=== PATIENT | male | born 1965 | race Caucasian/White ===

== ENCOUNTER 2017-02-05 10:59 | Emergency (ER) | payer SELFPAY ==
[~2017-02-05] VITALS: Ht 172.7 cm; Wt 97.1 kg
[~2017-02-05 10:59] MED LIST: ATOR10TA PO; CYCL10TA9 PO; DULO60CA6 PO; LISI-552 PO; METH4TAB PO; NF-ACI30T PO; SERT100T PO; SRTR100T PO; TOPI100T PO; TRAM-42 PO
--- OUTSIDE RECORDS SUMMARY | 2017-02-05 11:06 | XMS REPORT | Continuity of Care Document ---
Author Author [facility] Organization [facility] Address Unknown Phone Unavailable Care Team Providers Care Spooling Supervisor Name Role Phone , [facility] Insurance Providers Payer Name Policy Number Subscriber Name Relationship Self Pay Eloy Nath 18 Self / Same As Patient Advance Directives Directive Response Recorded Date/Time Advance Directives No 01/03/15 6:20am Health Care Power of Parts Fabricator No 01/03/15 6:20am Resuscitation Status Full Code 01/03/15 6:20am Problems Medical Problems Problem Onset Date Status 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 sac Unknown Active 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 sac Unknown Active Medications Medication Dose Route Sig Days/Qty Instructions Order Date Discontinued Date Status Sertraline HCl 100 Mg PO DAILY@0900 02/10/12 Active Duloxetine HCl 1 Each PO DAILY 02/10/12 Active Social History Social History Problem Response Recorded Date/Time Alcohol Use Occasionally Uses 01/03/2015 6:20am Recreational Drug Use No 01/03/2015 6:20am Recent Foreign Travel No 01/03/2015 6:20am Recent Infectious Disease Exposure No 01/03/2015 6:20am Smoking Status Never a Smoker 01/03/2015 6:20am Query Response Start Date Stop Date Smoking Status Never a Smoker Hospital Discharge Instructions No hospital discharge instructions. Plan of Care No plan of care. Functional Status No functional status results. Allergies, Adverse Reactions, Alerts Allergen Type Severity Reaction Status Last Updated No Known Drug Allergies Active 02/10/12 Immunizations No immunization records. Vital Signs Acute Vital Signs Vital Response Date/Time Temperature (Fahrenheit) 98.4 degrees F (97.6 - 99.5) Temperature (Calculated Celsius) 36.75825 degrees C (36.4 - 37.5) Temperature Source Temporal Pulse Rate (adult) 91 bpm (60 - 90) Respiratory Rate 18 bpm (12 - 24) O2 Sat by Pulse Oximetry 96 % (88 - 100) Blood Pressure 108/82 mm Hg Pain Pain Intensity 7 Height (Feet) 5 feet Height (Inches) 8 inches Height (Calculated Centimeters) 172.244457 cm Weight (Pounds) 220 pounds Weight (Calculated Kilograms) 99.100955 kilograms Calculated BMI 33.45 Results No known relevant diagnostic tests, laboratory data and/or discharge summary. Procedures No known history of procedures. Encounters Encounter Location Date/Time Departed Emergency Room [facility] 01/03/15 6:17am Recent Diagnosis
--- NOTE | 2017-02-05 12:22 | ED General ---
General Chief Complaint: Rect Problems Stated Complaint: DIARRHEA/BLOOD IN STOOL Nursing Triage Note: Ambulatory to ED 10 with reports of rectal bleeding for the past week. Patient has history of hemorrhoids. Reports bleeding is bright red in nature. Nursing Sepsis Screen: No Definite Risk Source of Information: Patient Exam Limitations: No Limitations History of Present Illness Time Seen by Provider: 12:22 Initial Comments 51-year-old male patient presents to the emergency department complains of bright red blood per rectum several times in the last week. Patient states he does have a history of hemorrhoids with bleeding. States when he has had trouble with his hemorrhoids, he has always had pain with bowel movements. Denies any rectal pain on this occasion. States this concerned him. States he has had approximately 4-5 intermittent watery diarrhea stools over the last week. Lower abdominal cramping last night, but resolved today. Denies contacting his PCP for symptoms. Location Injury Occurred: denies known injury. Timing/Duration: 1 Week, Intermittent Modifying Factors: worse with Other (worse with defecation) Allergies and Home Medications Allergies Coded Allergies: No Known Drug Allergies (Unverified , 02/10/12) Home Medications Atorvastatin Calcium 10 Mg Tablet 10 MG PO DAILY (Reported) Cyclobenzaprine HCl 10 Mg Tablet #15 10 MG PO Q8H Prescribed by: PERFECTO MYRICK on 06/26/161849 Hydrocortisone/Pramoxine 30 Gm Cream.appl #1 1 GM RC QID PRN PRN HEMORRHOIDS Prescribed by: DEREK HARRIS on 02/05/17 1302 Lisinopril 20 Mg Tablet 20 MG PO DAILY (Reported) Methylprednisolone 4 Mg Tab.ds.pk #1 4 MG PO UD Prescribed by: PERFECTO MYRICK on 06/26/161849 Rabeprazole Sodium 20 Mg Tablet.dr 20 MG PO DAILY (Reported) Sertraline HCl 100 Mg Tablet 100 MG PO DAILY (Reported) Sertraline Hcl 100 Mg Tab 100 MG PO DAILY@0900 (Reported) Topiramate 100 Mg Tablet 100 MG PO DAILY (Reported) Tramadol HCl 50 Mg Tablet #20 50 MG PO Q4H Prescribed by: PERFECTO MYRICK on 06/26/161849 Constitutional: No chills, No diaphoresis, No dizziness, No fever, No malaise, No weakness EENTM: no symptoms reported Respiratory: no symptoms reported Cardiovascular: no symptoms reported Gastrointestinal: see HPINo abdominal pain, No constipation, diarrheaNo hematemesis, No loss of appetite, No melena, No nausea, No vomiting, other ( positive hematochezia.) Genitourinary: No decreased output, No dysuria, No frequency, No hematuria, No pain Musculoskeletal: no symptoms reported Skin: no symptoms reported Psychiatric/Neurological: No Symptoms Reported Hematologic/Lymphatic: No Symptoms Reported All Other Systems Reviewed Negative Unless Noted: Yes (Negative excepted noted.) Past Hulzbjd-Fbbigm-Cqgyyu Hx Patient Social History Alcohol Use: Occasionally Uses Recreational Drug Use: No Smoking Status: Never a Smoker 2nd Hand Smoke Exposure: No Recent Foreign Travel: No Contact w/Someone Who Travel: No Recent Infectious Disease Expo: No Recent Hopitalizations: No Immunizations Up To Date Tetanus Booster (TDap): Unknown Seasonal Allergies Seasonal Allergies: No Surgeries HX Surgeries: Yes (HERNIA REPAIR) Surgeries: Abdominal, Tonsillectomy Respiratory Hx Respiratory Disorders: No Cardiovascular Hx Cardiac Disorders: Yes Cardiac Disorders: High Cholesterol, Hypertension Neurological Hx Neurological Disorders: No Reproductive System Hx Reproductive Disorders: No Genitourinary Hx Genitourinary Disorders: Yes Genitourinary Disorders: Kidney Stones Gastrointestinal Hx Gastrointestinal Disorders: Yes Gastrointestinal Disorders: Gastrointestinal Bleed, Hemorrhoids Musculoskeletal Hx Musculoskeletal Disorders: Yes Musculoskeletal Disorders: Fractures Endocrine Hx Endocrine Disorders: Yes Endocrine Disorders: Hypothyroidsim HEENT HX ENT Disorders: No Cancer Hx Cancer: No Psychosocial Hx Psychiatric Problems: Yes Behavioral Health Disorders: Anxiety, Depression Integumentary HX Skin/Integumentary Disorder: No Blood Transfusions Hx Blood Disorders: No Reviewed Nursing Assessment Reviewed/Agree w Nursing PMH: Yes Family Medical History Significant Family History: No Pertinent Family Hx Physical Exam Vital Signs Vital Sign - Last 12Hours 02/05/17 11:19 Temp 98.1 Pulse 101 Resp 18 B/P 129/95 Pulse Ox 97 O2 Delivery Room Air Capillary Refill : Less Than 3 Seconds General Appearance: No Apparent Distress WD/WN Respiratory: Lungs Clear Normal Breath Sounds No Respiratory Distress Cardiovascular: Regular Rate, Rhythm No Murmur Gastrointestinal: Normal Bowel Sounds No Organomegaly Non Tender SoftNo Distended Rectal: Normal Rectal Tone Heme Positive Stool Hemorrhoids (small internal hemorrhoid at the 12 o'clock posistion.)No Tenderness Back: Normal Inspection No CVA Tenderness Extremity: Normal Capillary Refill No Pedal Edema Neurologic/Psychiatric: Alert Oriented x3 Depressed Affect Skin: Normal Color Warm/DryNo Cool, No Cyanosis, No Diaphoresis, No Pallor, No Petechia, No Rash Progress/Results/Core Measures Results/Orders My Orders Orders-DEREK HARRIS Fecal Occult Bedside (02/05/17 12:32) Vital Signs/I&O Blood Pressure Mean: 106 Departure Communication Progress Notes patient seen and evaluated. plan for dsch to home. patient instructed to f/u with his PCP for possible need of c/scope. Impression Impression: Primary Impression: Hemorrhoids Qualified Code: K64.0 - First degree hemorrhoids Additional Impression: Rectal bleeding Disposition: HOME, SELF-CARE Condition: Improved Departure-Patient Inst. Referrals: [facility] (PCP/Family) Primary Care Physician GIANNI SHARIF BRETT D DO JENKINS, XAVIER M MD Patient Instructions: Hemorrhoids (DC) Add. Discharge Instructions: All discharge instructions reviewed with patient and/or family. Voiced understanding. Medications as instructed. Osit-rsy-qwpnogn fiber supplements as instructed. Follow-up with the family practitioner for recheck and possible need for colonoscopy. Call for appointment time. Return to the emergency department for worsened bleeding, pain, abdominal swelling, abdominal pain, fever, or any other concerns. Scripts Hydrocortisone/Pramoxine (Analpram Hc 2.5% Cream)30 Gm Cream.appl1 Gm RC QID PRN HEMORRHOIDS #1 EA Ref 0 Prov:DEREK HARRIS 02/05/17 DEREK HARRIS Feb 05, 2017 12:22 Add. Discharge Instructions: All discharge instructions reviewed with patient and/or family. Voiced understanding. Medications as instructed. Puvs-fff-wpguvme fiber supplements as instructed. Follow-up with the family practitioner for recheck and possible need for colonoscopy. Call for appointment time. Return to the emergency department for worsened bleeding, pain, abdominal swelling, abdominal pain, fever, or any other concerns. Scripts Hydrocortisone/Pramoxine (Analpram Hc 2.5% Cream)30 Gm Cream.appl1 Gm RC QID PRN HEMORRHOIDS #1 EA Ref 0 Prov:DEREK HARRIS 02/05/17 DEREK HARRIS Feb 05, 2017 12:22
[2017-02-05] MEDS ORDERED: HC A30CR RC (13:02)
[2017-02-05 13:12] VITALS: BP 127/88
== END 2017-02-05 13:12 | disposition home or self-care (01) ==
LOC: EDUNIT# 10:59 → ER 11:02
DX: K64.9 Unspecified hemorrhoids (principal); K92.1 Melena; I10 Essential (primary) hypertension; Z79.899 Other long term (current) drug therapy
CPT/HCPCS: 99282

== ENCOUNTER 2017-03-28 18:54 | Emergency (ER) | payer SELFPAY ==
[~2017-03-28] VITALS: Ht 175.3 cm; Wt 95.3 kg
[~2017-03-28 18:54] MED LIST changes: +HC A30CR RC
[2017-03-28] MEDS ORDERED: MULT-974 PO (19:32)
--- NOTE | 2017-03-28 19:32 | ED GI ---
General Chief Complaint: Abdominal/GI Problems Stated Complaint: LOWER ABD PAIN Nursing Triage Note: PT REPORTS TO ER WITH COMPLAINT OF LEFT LOWER QUADRANT PAIN. PT STATES THAT HE IS FOLLOWING UP FROM WHEN HE WAS HERE IN JANUARY FOR BLOODY STOOLS. PT REPORTS NO PAIN UNLESS YOU APPLY PRESSURE TO THE LEFT LOWER QUADRANT. Sepsis Screen: No Definite Risk Source of Information: Patient, Old Records History of Present Illness Time Seen By Provider: 19:10 Initial Comments PT STATES HE IS "HERE FOR HIS FOLLOW UP" PT STATES HE WAS HERE IN JANUARY FOR HAVING BLOOD IN STOOLS--WAS DX WITH HEMORRHOIDS, AND HAS A HISTORY OF BLEEDING HEMORRHOIDS IN THE PAST ON MORE THAN ONE OCCASION, PAIN IN RECTAL AREA WITH BM'S PT WAS ADVISED TO FOLLOW UP WITH DR. CH, BUT DID NOT FOLLOW UP WITH HIM OR ANYONE ELSE HE HAS BEEN INSTRUCTED TO DO. STATES HE HAD AN APPOINTMENT YESTERDAY ( NOT SURE WHO IT WAS WITH ) BUT HE DIDN' T GO--STATES "HAD TO ACID EXTRACTOR MY MOM" --AND MADE NO ATTEMPT TO RESCHEDULE. STATES HE WAS ALSO SUPPOSED TO GET SCHEDULED FOR A COLONOSCOPY BUT HAS NOT DONE THAT EITHER PT STATES "THEY SAID IF I HAD PAIN TO COME BACK, AND TODAY WAS THE FIRST TIME I PUSHED ON IT"( IS REFERRING TO HIS ABDOMEN) --STATES "TODAY WAS THE FIRST TIME I TOUCHED IT" ( AGAIN REFERRING TO HIS ABDOMEN). STATES "I DON'T FEEL IT IF I'M NOT PUSHING ON IT, AND I'VE BEEN PUSHING ON IT A FEW TIMES TODAY"--STATES "IT ONLY HURTS IF I PUSH REALLY, REALLY HARD ON IT" STATES HE HAD BLOOD WITH HIS STOOL 1 TIME LAST WEEK--STATES MOSTLY JUST BLOOD ON TISSUE WHEN HE WIPES AFTER HE HAS A BM HAS HAD NORMAL BM'S SINCE THEN PT HAS BEEN EATING AND DRINKING NORMALLY NO FEVER NO NAUSEA/VOMITING/DIARRHEA/CONSTIPATION PCP: [facility] Allergies and Home Medications Allergies Coded Allergies: No Known Drug Allergies (Unverified , 02/10/12) Home Medications Atorvastatin Calcium 10 Mg Tablet, 10 MG PO DAILY, (Reported) Hydrocortisone/Pramoxine 30 Gm Cream.appl, 1 GM RC QID PRN for HEMORRHOIDS, #1 Ref 0 Prescribed by: DEREK HARRIS on 02/05/17 1302 Lisinopril 20 Mg Tablet, 20 MG PO DAILY, (Reported) Multivitamin 1 Each Tablet, 1 EACH PO DAILY, (Reported) Rabeprazole Sodium 20 Mg Tablet.dr, 20 MG PO DAILY, (Reported) Sertraline Hcl 100 Mg Tab, 100 MG PO DAILY@0900, (Reported) Topiramate 100 Mg Tablet, 100 MG PO DAILY, (Reported) Review of Systems Constitutional: no symptoms reported Respiratory: No Symptoms Reported Cardiovascular: No Symptoms Reported Gastrointestinal: See HPI Genitourinary: No Symptoms Reported Musculoskeletal: no symptoms reported Skin: no symptoms reported Psychiatric/Neurological: No Symptoms Reported Endocrine: No Symptoms Reported Hematologic/Lymphatic: See HPI Past Webmfeg-Zhwlcr-Dshtwe Hx Patient Social History Alcohol Use: Occasionally Uses Recreational Drug Use: No Smoking Status: Never a Smoker 2nd Hand Smoke Exposure: No Recent Foreign Travel: No Contact w/Someone Who Travel: No Recent Infectious Disease Expo: No Recent Hopitalizations: No Immunizations Up To Date Tetanus Booster (TDap): Unknown Seasonal Allergies Seasonal Allergies: No Surgeries HX Surgeries: Yes (HERNIA REPAIR) Surgeries: Abdominal, Tonsillectomy Respiratory Hx Respiratory Disorders: No Cardiovascular Hx Cardiac Disorders: Yes Cardiac Disorders: High Cholesterol, Hypertension Neurological Hx Neurological Disorders: No Reproductive System Hx Reproductive Disorders: No Genitourinary Hx Genitourinary Disorders: Yes Genitourinary Disorders: Kidney Stones Gastrointestinal Hx Gastrointestinal Disorders: Yes Gastrointestinal Disorders: Hemorrhoids Musculoskeletal Hx Musculoskeletal Disorders: Yes Musculoskeletal Disorders: Fractures Endocrine Hx Endocrine Disorders: Yes Endocrine Disorders: Hypothyroidsim HEENT HX ENT Disorders: No Cancer Hx Cancer: No Psychosocial Hx Psychiatric Problems: Yes Behavioral Health Disorders: Anxiety, Depression Integumentary HX Skin/Integumentary Disorder: No Blood Transfusions Hx Blood Disorders: No Physical Exam Vital Signs VS - Last 72 Hours, by Label 03/28/17 03/28/17 19:04 19:36 Temp 98.0 Pulse 98 92 Resp 20 16 B/P (MAP) 127/91 Pulse Ox 95 98 O2 Delivery Room Air Capillary Refill : Less Than 3 Seconds General Appearance: WD/WN, no apparent distress Respiratory: normal breath sounds, no respiratory distress, no accessory muscle use Cardiovascular: regular rate, rhythm, no murmur Gastrointestinal: normal bowel sounds, non tender, soft, no organomegaly, no pulsatile mass, No distended, No guarding, No rebound, No hernia, No mass Extremities: normal inspection Back: no CVA tenderness Neurologic/Psychiatric: 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 CH, HE ADVISES THAT HIS STAFF WILL CONTACT PT TOMORROW AND ARRANGE FOR APPOINTMENT AND COLONOSCOPY--PT'S INFORMATION GIVEN TO HIM. Impression Impression: Primary Impression: HX OF BLEEDING HEMORRHOIDS Disposition: 01 HOME, SELF-CARE Condition: Stable Departure-Patient Inst. Referrals: [facility] (PCP/Family) Primary Care Physician VESTA HC MD Patient Instructions: Bloody Stools, Adult (DC), Hemorrhoids (DC) Add. Discharge Instructions: TAKE MIRALAX DAILY INCREASE YOUR WATER AND FIBER INTAKE CALL DR. SAHNI'S OFFICE IN THE MORNING TO ARRANGE FOR COLONOSCOPY CALL [facility] IN THE MORNING TO RESCHEDULE YOUR REGULAR APPOINTMENT All discharge instructions reviewed with patient and/or family. Voiced understanding. PERFECTO MYRICK DO March 28, 2017 19:32
[2017-03-28 19:36] VITALS: BP 122/87
== END 2017-03-28 19:36 | disposition home or self-care (01) ==
LOC: EDUNIT# 18:54 → ER 18:57
DX: K64.9 Unspecified hemorrhoids (principal)
CPT/HCPCS: 99282

== ENCOUNTER 2017-04-20 11:00 | Outpatient (CLI) | payer SELFPAY ==
[~2017-04-20] VITALS: Ht 175.3 cm; Wt 95.3 kg
[~2017-04-20 11:00] MED LIST changes: +MULT-974 PO
[2017-04-20] MEDS ORDERED: LEVO125T6 PO (11:48)
== END 2017-04-20 12:18 ==
LOC: PREOP 11:00
PROVIDERS: ATTEND Surgery
DX: Z01.818 Encounter for other preprocedural examination (principal); R13.10 Dysphagia, unspecified; K92.1 Melena

== ENCOUNTER 2017-04-24 07:56 | Day surgery (SDC) | payer OTHER ==
[~2017-04-24] VITALS: Ht 175.3 cm; Wt 95.3 kg
[~2017-04-24 07:56] MED LIST changes: +LEVO125T6 PO
[2017-04-24] MEDS ORDERED: NS IV 1000 ML 1,000 ML IV STA (08:12)
[2017-04-24] MEDS ORDERED: NALOXONE 0.4 MG/ML 1 ML (NARCAN) VIAL IVP PRN (08:15)
[2017-04-24] MEDS ORDERED: FLUMAZENIL (ROMAZICON) 0.1 MG/ML 5 ML VIAL INJ PRN (08:15)
[2017-04-24] MEDS ORDERED: NS IV 500 ML 0 ML ONE (08:19)
[2017-04-24] MEDS ORDERED: NS IV 1000 ML 1,000 ML ONE (08:20)
--- NOTE | 2017-04-24 08:27 | Progress Note-Pre Operative ---
Pre-Operative Progress Note H&P Reviewed The H&P was reviewed, patient examined and no changes noted. Date H&P Reviewed: April 24, 2017 Time H&P Reviewed: 08:27 Pre-Operative Diagnosis: bright red blood in stools, dysphagia DORIE HUSAIN DO April 24, 2017 8:27 am
[2017-04-24] MEDS: HURRICAINE EXT TUBE (BENZOCAINE) XX PRN ×2 (08:31→09:15)
[2017-04-24] MEDS ORDERED: MIDAZOLAM 2 MG/2 ML (VERSED) VIAL ONE (09:10)
[2017-04-24] MEDS ORDERED: proPOfol 200 MG/20 ML (DIPRIVAN) VIAL IV ONE (09:10)
[2017-04-24] MEDS ORDERED: HURRICAINE EXT TUBE (BENZOCAINE) ONE (09:14)
[2017-04-24 09:22] VITALS: BP 127/86
[2017-04-24] MEDS ORDERED: SUCR1TAB36 PO (09:53)
[2017-04-24] MEDS ORDERED: PANT40TA2 PO (09:53)
--- NOTE | 2017-04-24 09:56 | Discharge Inst-Simple/Standard ---
Discharge Inst-Standard Discharge Medications New, Converted or Re-Newed RX: RX on Chart Patient Instructions/Follow Up Plan of Care/Instructions/FU: Follow up with Dr. Brock in 2 weeks Take medication as directed. Next colonoscopy in 10 years or sooner if changes in conditions. Activity as Tolerated: Yes Discharge Diet: No Restrictions JERSON PLATA APRN April 24, 2017 09:56
--- NOTE | 2017-04-24 09:59 | Progress Note-Post Operative ---
Post-Operative Progess Note Surgeon (s)/Medical Aide (s) Surgeon DORIE HUSAIN DO Medical Aide: na Pre-Operative Diagnosis bright red blood in stools, dysphagia Post-Operative Diagnosis slight gastritis, esophagitis, internal hemorrhoids Procedure & Operative Findings Date of Procedure 04/24/17 Procedure Performed/Findings egd c biopsies, colonoscopy Anesthesia Type per [facility] Estimated Blood Loss Estimated blood loss (mL): none Specimens/Packing Specimens Removed antrum, ge junction, proximal esophagus DORIE HUSAIN DO April 24, 2017 9:59 am
[2017-04-24 10:10] VITALS: BP 113/76
[2017-04-24 10:35] VITALS: BP 124/77
[2017-04-24 10:41] VITALS: BP 124/77
--- NOTE | 2017-04-24 15:04 | OPERATIVE REPORT ---
DATE OF SERVICE: 04/24/2017 PREOPERATIVE DIAGNOSES: Blood in stool and dysphagia. POSTOPERATIVE DIAGNOSES: Slight gastritis, esophagitis and internal hemorrhoids. PROCEDURES: EGD with biopsies and colonoscopy. SURGEON: Dorie Brock DO ANESTHESIA: Per MDA. ESTIMATED BLOOD LOSS: None. COMPLICATIONS: None. SPECIMEN: Antrum, GE junction and proximal esophagus. INDICATIONS: The patient is a 51-year-old male with dysphagia and bright red blood in the stools. He understands risks and benefits of procedure and wished to proceed with procedure. Consent was signed in the chart. PROCEDURE IN DETAIL: The patient was taken to the endoscopy suite, placed in left lateral recumbent position. Timeout was performed. Scope was inserted in mouth, down the esophagus, stomach and into the duodenum without difficulty. There were no polyps, mass or ulcerations within the duodenum. The scope was slowly retracted back into the stomach, which had some slight erythematous changes. Biopsies of the antrum was obtained. The scope was retroflexed noting no other pathology. Scope was returned to its normal position, slowly withdrawn to the esophagus. Some slight erythematous changes at the GE junction. Biopsy was obtained. Scope was slowly retracted back into the proximal esophagus. There were some mucosal changes with erythematous changes. Biopsy was obtained. Scope was slowly retracted until completely removed, noting no other pathology. Digital rectal exam was performed and there were no palpable polyps, masses or ulcerations. Scope was inserted in the rectum and advanced all the way to the cecum with minimal difficulty. Prep was adequate. There were no polyps, masses or ulcerations in the cecum, ascending, transverse, descending and sigmoid colon. In the rectum, the scope was also retroflexed noting some internal hemorrhoids. No other pathology noted. Scope was returned to its normal position, slowly withdrawn until completely removed, noting no other pathology. The patient tolerated procedure well without any complications. He was taken to the recovery room in stable condition. RECOMMENDATIONS: The patient was started on Protonix and Carafate. He will follow up in the office in two to three weeks. He will need repeat colonoscopy in 10 years, unless family history of colon cancer which would then be 5 years. If he has any problems prior to that, he should be reevaluated at that time. Job ID: [id number] DocumentID: [id number] Dictated Date: 04/24/2017 10:01:38 Rn Maternal Child Date: 04/24/2017 10:48:25 Dictated By: DORIE BROCK DO
== END 2017-04-24 10:45 | disposition home or self-care (01) ==
LOC: ENDO 07:56
PROVIDERS: ATTEND Surgery
DX: K92.1 Melena (principal); K64.8 Other hemorrhoids; K29.70 Gastritis, unspecified, without bleeding; K20.9 Esophagitis, unspecified; I10 Essential (primary) hypertension; G47.33 Obstructive sleep apnea (adult) (pediatric); J42 Unspecified chronic bronchitis; F32.9 Major depressive disorder, single episode, unspecified; F41.9 Anxiety disorder, unspecified; E66.9 Obesity, unspecified; Z68.31 Body mass index [BMI] 31.0-31.9, adult; Z79.899 Other long term (current) drug therapy

== ENCOUNTER 2017-09-05 09:21 | Emergency (ER) | payer OTHER ==
[~2017-09-05] VITALS: Ht 175.3 cm; Wt 95.3 kg
[~2017-09-05 09:21] MED LIST changes: +PANT40TA2 PO; +SUCR1TAB36 PO
--- OUTSIDE RECORDS SUMMARY | 2017-09-05 09:27 | XMS REPORT ---
Author Author YULI CHUA Organization [facility] Address [address] [place] [address] Care Team Providers Care Conflict Resolution Professional Name Role Phone YULI CHUA Unavailable PROBLEMS Type Condition ICD9-CM Code URG56-[id number] Code Onset Dates Condition Status SNOMED Code Problem Depression, unspecified depression type F32.9 Active 61067305 Problem Gastroesophageal reflux disease, esophagitis presence not specified K21.9 Active 448770439 Problem Insomnia, unspecified type G47.00 Active 382868620 Problem Major depressive disorder, recurrent, moderate F33.1 Active 39348886 Problem Generalized anxiety disorder F41.1 Active 30698667 Problem Environmental allergies Z91.09 Active 239052688 Problem Acute eczema L30.9 Active 125288294 Problem Personality disorder in adult F60.9 Active 15634607 Problem Tingling in extremities R20.2 Active 82036592 Problem Anxiety F41.9 Active 23971351 Problem 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 Active 039042119 Problem Acquired hypothyroidism E03.9 Active 087954559 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 22668269 Problem Hypercholesterolemia E78.0 Active 77759181 Problem Secondary hypertension I15.9 Active 35230059 ALLERGIES No Information SOCIAL HISTORY Never Assessed PLAN OF CARE VITAL SIGNS MEDICATIONS Unknown Medications RESULTS No Results PROCEDURES No Known procedures IMMUNIZATIONS No Known Immunizations MEDICAL (GENERAL) HISTORY Type Description Date Medical History hypothyroid Medical History recurrent bronchitis/chronic cough Medical History depression Medical History anxiety Medical History chronic pain--fall in 2002, no fx but cont to have chronic back pain/sciatica Medical History gastroesophageal reflux disease (GERD) Medical History hyperlipidemia Medical History hypertension Medical History psychosexual dysfunction Medical History insomnia Surgical History inguinal hernia repair 2005 Surgical History tonsillectomy age 15 Surgical History Colonoscopy 04/2017
--- OUTSIDE RECORDS SUMMARY | 2017-09-05 09:27 | XMS REPORT ---
Author Author HARSHIL YULI Organization [facility] Address [address] [place] [address] Care Team Providers Care Labor Relations Teacher Name Role Phone YULI CHUA Unavailable PROBLEMS Type Condition ICD9-CM Code PLY31-VU Code Onset Dates Condition Status SNOMED Code Problem Depression, unspecified depression type F32.9 Active 49797985 Problem Gastroesophageal reflux disease, esophagitis presence not specified K21.9 Active 023933175 Problem Insomnia, unspecified type G47.00 Active 792765576 Problem Major depressive disorder, recurrent, moderate F33.1 Active 50856787 Problem Generalized anxiety disorder F41.1 Active 44317901 Problem Environmental allergies Z91.09 Active 805266021 Problem Acute eczema L30.9 Active 055276460 Problem Personality disorder in adult F60.9 Active 14653380 Problem Tingling in extremities R20.2 Active 89940046 Problem Anxiety F41.9 Active 04634036 Problem 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
--- OUTSIDE RECORDS SUMMARY | 2017-09-05 09:28 | XMS REPORT ---
Author Author Alexey MARLEY Organization [facility] Address [address] [place] [address] Care Team Providers Care Rehabilitation Consultant Name Role Phone talMARLEY Gr Unavailable PROBLEMS Type Condition ICD9-CM Code [id number] Code Onset Dates Condition Status SNOMED Code Problem Depression, unspecified depression type F32.9 Active 06009040 Problem Gastroesophageal reflux disease, esophagitis presence not specified K21.9 Active 630687215 Problem Insomnia, unspecified type G47.00 Active 308144386 Problem Major depressive disorder, recurrent, moderate F33.1 Active 34062827 Problem Generalized anxiety disorder F41.1 Active 32607804 Problem Environmental allergies Z91.09 Active 392641539 Problem Acute eczema L30.9 Active 496619674 Problem Personality disorder in adult F60.9 Active 51054388 Problem Tingling in extremities R20.2 Active 70889139 Problem Anxiety F41.9 Active 66793524 Problem 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 Active 438085511 Problem Acquired hypothyroidism E03.9 Active 447125812 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
--- OUTSIDE RECORDS SUMMARY | 2017-09-05 09:28 | XMS REPORT ---
Author Author HARSHIL YULI Organization [facility] Address [address] [place] [address] Care Team Providers Care Metal Reclamation Kettle Tender Name Role Phone YULI CHUA Unavailable PROBLEMS Type Condition ICD9-CM Code [id number] Code Onset Dates Condition Status SNOMED Code Problem Depression, unspecified depression type F32.9 Active 50145390 Problem Gastroesophageal reflux disease, esophagitis presence not specified K21.9 Active 333843096 Problem Insomnia, unspecified type G47.00 Active 681118102 Problem Major depressive disorder, recurrent, moderate F33.1 Active 84351019 Problem Generalized anxiety disorder F41.1 Active 47862782 Problem Environmental allergies Z91.09 Active 305930757 Problem Acute eczema L30.9 Active 487916970 Problem Personality disorder in adult F60.9 Active 68611414 Problem Tingling in extremities R20.2 Active 17426549 Problem Anxiety F41.9 Active 87783742 Problem 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 Unknown Non Drug Allergy Dec, Unknown SOCIAL HISTORY No smoking Hx information available PLAN OF CARE Activity Details Follow Up 3 Months, prn Reason: VITAL SIGNS Height 68 in 2017-01-02 Weight 214.4 lbs 2017-01-02 Temperature 98.4 degrees Fahrenheit 2017-01-02 Heart Rate 100 bpm 2017-01-02 Respiratory Rate 20 2017-01-02 BMI 32.60 kg/m2 2017-01-02 Blood pressure systolic 122 mmHg 2017-01-02 Blood pressure diastolic 102 mmHg 2017-01-02 MEDICATIONS Medication Instructions Dosage Frequency Start Date End Date Duration Status Zoloft 100 MG Orally Once a day 1 tablet 24h Nov, 30 day(s) Active Lisinopril 20 mg Orally Once a day 1 tablet 24h 30 Active Multivitamins Active Levothyroxine Sodium 50 MCG Orally Once a day 1 tablet on an empty stomach in the morning 24h 10 Aug, 2016 Active Fish Oil 2 Capsule by Oral route 1 time per day Dec, Active Zoloft 50 MG Orally Once a day 1 tablet 24h Nov, 30 day(s) Active Lipitor 10 mg Orally Once a day 1 tablet 24h Jan, Active Zyrtec Allergy 10 MG Orally Once a day 1 capsule as needed 24h 30 Active Aluminum Chloride 20 % 1 time per dayat night May, Active Aciphex 20 mg Orally Once a day 1 tablet 24h Jan, 30 days Active RESULTS Name Result Date Reference Range TSH W/ FREE T4 2017-01-02 TSH 5.410 0.450-4.500 T4,Free(Direct) 1.04 0.82-1.77 PROCEDURES Procedure Date Ordered Related Diagnosis Body Site ASSAY THYROID STIM HORMONE Jan 02, 2017 ASSAY OF FREE THYROXINE Jan 02, 2017 VENIPDEANDRE, ROUTINE* Jan 02, 2017 Office Visit, Est Pt., Level 3 Jan 02, 2017 IMMUNIZATIONS No Known Immunizations
--- OUTSIDE RECORDS SUMMARY | 2017-09-05 09:28 | XMS REPORT ---
Author Author Alexey MARLEY [facility] Address [address] [place] [address] Care Team Providers Care Swing Grinder Name Role Phone talMARLEY Gr Unavailable PROBLEMS Type Condition ICD9-CM Code [id number] Code Onset Dates Condition Status SNOMED Code Problem Depression, unspecified depression type F32.9 Active 47924669 Problem Gastroesophageal reflux disease, esophagitis presence not specified K21.9 Active 270651279 Problem Insomnia, unspecified type G47.00 Active 799400384 Problem Major depressive disorder, recurrent, moderate F33.1 Active 26338142 Problem Generalized anxiety disorder F41.1 Active 27955808 Problem Environmental allergies Z91.09 Active 189804054 Problem Acute eczema L30.9 Active 335752480 Problem Personality disorder in adult F60.9 Active 34670503 Problem Tingling in extremities R20.2 Active 31839698 Problem Anxiety F41.9 Active 72290192 Problem 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 Active 170564642 Problem Acquired hypothyroidism E03.9 Active 552475530 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 16717338 Problem Hypercholesterolemia E78.0 Active 53562080 Problem Secondary hypertension I15.9 Active 58323808 ALLERGIES No Known Allergies SOCIAL HISTORY Never Assessed PLAN OF CARE Activity Details Follow Up 3 Months Reason: VITAL SIGNS Height 68 in 2017-01-02 Weight 214.4 lbs 2017-01-02 Heart Rate 100 bpm 2017-01-02 Respiratory Rate 20 2017-01-02 BMI 32.60 kg/m2 2017-01-02 Blood pressure systolic 122 mmHg 2017-01-02 Blood pressure diastolic 102 mmHg 2017-01-02 MEDICATIONS Medication Instructions Dosage Frequency Start Date End Date Duration Status Aciphex 20 mg Orally Once a day 1 tablet 24h Jan, 30 days Active Lipitor 10 mg Orally Once a day 1 tablet 24h Jan, Active Aluminum Chloride 20 % 1 time per dayat night May, Active Zoloft 50 MG Orally Once a day 1 tablet 24h Nov, Active Fish Oil 2 Capsule by Oral route 1 time per day Dec, Active Multivitamins Active Levothyroxine Sodium 50 MCG Orally Once a day 1 tablet on an empty stomach in the morning 24h Aug, Active Lisinopril 20 mg Orally Once a day 1 tablet 24h 30 Active Zyrtec Allergy 10 MG Orally Once a day 1 capsule as needed 24h 30 Active Zoloft 100 MG Orally Once a day 1 tablet 24h Nov, Active Topiramate 100 MG Orally Once a day 1 tablet 24h 07 Dec, 2016 30 day(s ) Active RESULTS No Results PROCEDURES No Known [...]
--- OUTSIDE RECORDS SUMMARY | 2017-09-05 09:29 | XMS REPORT ---
Author Author HARSHIL YULI Organization [facility] Address [address] [place] [address] Care Team Providers Care Radio Frequency Engineer Name Role Phone LEANDRA CHUAE Unavailable PROBLEMS Type Condition ICD9-CM Code [id number] Code Onset Dates Condition Status SNOMED Code Problem Depression, unspecified depression type F32.9 Active 16346487 Problem Gastroesophageal reflux disease, esophagitis presence not specified K21.9 Active 379487304 Problem Insomnia, unspecified type G47.00 Active 066635691 Problem Major depressive disorder, recurrent, moderate F33.1 Active 04869828 Problem Generalized anxiety disorder F41.1 Active 68058011 Problem Environmental allergies Z91.09 Active 350294093 Problem Acute eczema L30.9 Active 409789321 Problem Personality disorder in adult F60.9 Active 45261530 Problem Tingling in extremities R20.2 Active 40162757 Problem Anxiety F41.9 Active 28976969 Problem 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 Unknown Non Drug Allergy Nov, Unknown SOCIAL HISTORY No smoking Hx information available PLAN OF CARE Activity Details Follow Up 6 Weeks Reason: VITAL SIGNS Height 68 in 2016-11-28 Weight 217 lbs 2016-11-28 Temperature 98.1 degrees Fahrenheit 2016-11-28 Heart Rate 88 bpm 2016-11-28 Respiratory Rate 20 2016-11-28 BMI 32.99 kg/m2 2016-11-28 Blood pressure systolic 120 mmHg 2016-11-28 Blood pressure diastolic 80 mmHg 2016-11-28 MEDICATIONS Medication Instructions Dosage Frequency Start Date End Date Duration Status Lisinopril 20 mg Orally Once a day 1 tablet 24h 30 Active Zoloft 100 MG Orally Once a day 1 tablet 24h Nov, 30 day(s) Active Sertraline HCl 100 MG Orally Once a day 1.5 tablets 24h 30 days Active Multivitamins Active Fish Oil 2 Capsule by Oral route 1 time per day Dec, Active Levothyroxine Sodium 50 MCG Orally Once a day 1 tablet on an empty stomach in the morning 24h 10 Aug, 2016 Active Zoloft 50 MG Orally Once a day 1 tablet 24h Nov, 30 day(s) Active Aluminum Chloride 20 % 1 time per dayat night May, Active Zyrtec Allergy 10 MG Orally Once a day 1 capsule as needed 24h 30 Active Aciphex 20 mg Orally Once a day 1 tablet 24h Jan, 30 days Active Lipitor 10 mg Orally Once a day 1 tablet 24h Jan, Active RESULTS No Results PROCEDURES Procedure Date Ordered Related Diagnosis Body Site Office Visit, Est Pt., Level 4 Nov 28, 2016 IMMUNIZATIONS No Known Immunizations
[2017-09-05] MEDS ORDERED: [UNRECOGNIZED DRUG - CODE] (09:35)
--- NOTE | 2017-09-05 11:59 | ED EENT ---
History of Present Illness General Chief Complaint: Dental Problems/Pain Stated Complaint: TOOTH ABCESS,DIARRHEA Nursing Triage Note: AMB TO ROOM REPORTS TAHT HE WAS SEEN IN DENTAL CLINIC AT [facility] YESTERDAY ATTEMPT TO I&D ABSCESS IN [place] CON'T TO HAVE PAIN. WAS STARTED ON AMOXIL. PATIENT ANXIOUS ON ADMIT. Source: patient Exam Limitations: no limitations History of Present Illness Time seen by provider: 11:44 Initial Comments The patient is a 51-year-old white male who presents with complaints of dental pain/abscess. He reports that he has poor dentition and is planning a full mouth extraction. He was at [facility] yesterday and received a block and an attempt at draining an abscess. This was apparently unsuccessful. He is here today hoping for the same. He was given amoxicillin but has vomited all. Timing/Duration: abrupt Prearrival Treatment: prescription meds Associated Symptoms: facial pain/swelling Allergies and Home Medications Allergies Coded Allergies: No Known Drug Allergies (Unverified , 02/10/12) Home Medications Atorvastatin Calcium 10 Mg Tablet, 10 MG PO DAILY, (Reported) Levothyroxine Sodium 125 Mcg Tablet, 125 MCG PO DAILY, (Reported) Lisinopril 20 Mg Tablet, 20 MG PO DAILY, (Reported) Multivitamin 1 Each Tablet, 1 EACH PO DAILY, (Reported) Pantoprazole Sodium 40 Mg Tablet.dr, 40 MG PO DAILY, #30 Ref 6 Prescribed by: JERSON YORK on 04/24/17 0953 Sertraline Hcl 100 Mg Tab, 100 MG PO DAILY@0900, (Reported) Sucralfate 1 Gm Tablet, 1 GM PO QID, #120 Prescribed by: JERSON YORK on 04/24/17 0953 Topiramate 100 Mg Tablet, 100 MG PO DAILY, (Reported) [Amoxl] , (Reported) Review of Systems Constitutional: see HPI Eyes: No Symptoms Reported Ears: No Symptoms Reported Mouth: see HPI, pain, swelling Respiratory: no symptoms reported Cardiovascular: no symptoms reported Gastrointestinal: diarrhea Musculoskeletal: no symptoms reported Past Adjpkhr-Ebiymg-Lftsul Hx Patient Social History Alcohol Use: Occasionally Uses Recreational Drug Use: No Smoking Status: Never a Smoker 2nd Hand Smoke Exposure: No Recent Foreign Travel: No Contact w/Someone Who Travel: No Recent Infectious Disease Expo: No Recent Hopitalizations: No Immunizations Up To Date Tetanus Booster (TDap): Unknown Seasonal Allergies Seasonal Allergies: No Surgeries History of Surgeries: Yes (HERNIA REPAIR) Surgeries: Abdominal, Tonsillectomy Respiratory History of Respiratory Disorde: Yes (cough at times) Respiratory Disorders: Chronic Bronchitis, Sleep Apnea Currently Using CPAP: No Currently Using BIPAP: No Cardiovascular History of Cardiac Disorders: Yes Cardiac Disorders: High Cholesterol, Hypertension Neurological History of Neurological Disord: No Reproductive System Hx Reproductive Disorders: No Sexually Transmitted Disease: No HIV/AIDS: No (STATES HE WAS TESTED RECENTLY) Genitourinary Genitourinary Disorders: Kidney Stones Gastrointestinal History of Gastrointestinal Di: Yes (bloody stools) Gastrointestinal Disorders: Gastroesophageal Reflux, Hemorrhoids Musculoskeletal History of Musculoskeletal Dis: Yes Musculoskeletal Disorders: Fractures Endocrine History of Endocrine Disorders: Yes Endocrine Disorders: Hypothyroidsim Cancer History of Cancer: No Psychosocial History of Psychiatric Problem: Yes Behavioral Health Disorders: Anxiety, Depression Integumentary History of Skin or Integumenta: No Blood Transfusions History of Blood Disorders: No Physical Exam Vital Signs Vital Sign - Last 12Hours 09/05/17 09:25 Temp 97.9 Pulse 100 Resp 18 B/P (MAP) 122/81 Pulse Ox 100 O2 Delivery Room Air General Appearance: moderate distress Mouth/Throat: other Neck: full range of motion Cardiovascular: normal peripheral pulses, regular rate, rhythm, no edema, no gallop, no JVD, no murmur Gastrointestinal: normal bowel sounds, non tender, soft, no organomegaly, no pulsatile mass, tenderness, spleenomegaly Progress/Results/Core Measures Results/Orders My Orders Orders - KAROL BOWERS MD Ceftriaxone Injection (Rocephin Injectio (09/05/17 12:00) Lidocaine 1% Injection (Xylocaine 1% Inj (09/05/17 12:00) Panorex (09/05/17 11:47) Medications Given in ED Current Medications Medications Dose Ordered Sig/Sanam Route Start Time Stop Time Status Last Admin Dose Admin Ceftriaxone Sodium 1,000 mg ONCE ONCE IM 09/05/17 12:00 09/05/17 12:01 DC 09/05/17 12:14 1,000 MG Lidocaine HCl 2.1 ml ONCE ONCE INJ 09/05/17 12:00 09/05/17 12:01 DC 09/05/17 12:15 2.1 ML Vital Signs/I&O Vital Sign - Last 12Hours 09/05/17 09:25 Temp 97.9 Pulse 100 Resp 18 B/P (MAP) 122/81 Pulse Ox 100 O2 Delivery Room Air Blood Pressure Mean: 95 Departure Communication (Admissions) Progress Notes Panorex is reported as negative for abscess Impression Impression: Primary Impression: dental pain Disposition: HOME, SELF-CARE Condition: Stable/Unchanged Departure-Patient Inst. Decision time for Depature: 13:13 Referrals: [facility] (PCP/Family) Primary Care Physician Patient Instructions: Dental Pain (DC) Add. Discharge Instructions: All discharge instructions reviewed with patient and/or family. Voiced understanding. Change Amoxil to Omnicef that will begin tomorrow morning. Use naproxen or ibuprofen for pain Scripts Cefdinir (Cefdinir) 300 Mg Capsule 300 MG PO twice a day, #14 CAP Prov: KAROL BOWERS MD 09/05/17 KAROL BOWERS MD Sep 05, 2017 11:59
[2017-09-05] MEDS ORDERED: cefTRIAXone 1 GM (ROCEPHIN) VIAL IM ONE (12:00)
[2017-09-05] MEDS ORDERED: LIDOCAINE 1% INJ 20 ML (XYLOCAINE) VIAL INJ ONE (12:00)
--- NOTE | 2017-09-05 12:47 | Diagnostic Imaging Report ---
EXAMINATION: Panorex view of the mandible. INDICATION: Abscess There are no prior studies available for comparison. There is no fracture or destructive bony lesion identified. There are caries in the teeth within both the mandible and the maxilla. The soft tissues are unremarkable. The sinuses where visualized are clear. IMPRESSION: 1. There is no evidence for an acute bony abnormality or for a destructive lesion. 2. If clinical concern regarding an underlying abnormality persists, then CT of the facial bones would be recommended for further evaluation. Dictated by: Dictated on workstation # [id number]
[2017-09-05] MEDS ORDERED: CEFD300C3 PO (13:14)
[2017-09-05 13:19] VITALS: BP 122/81
== END 2017-09-05 13:19 | disposition home or self-care (01) ==
LOC: EDUNIT# 09:21 → ER 09:24
DX: K08.89 Other specified disorders of teeth and supporting structures (principal); J42 Unspecified chronic bronchitis; E78.00 Pure hypercholesterolemia, unspecified; I10 Essential (primary) hypertension; E03.9 Hypothyroidism, unspecified; F41.9 Anxiety disorder, unspecified; F32.9 Major depressive disorder, single episode, unspecified; K21.9 Gastro-esophageal reflux disease without esophagitis; Z90.89 Acquired absence of other organs; Z87.442 Personal history of urinary calculi; Z87.891 Personal history of nicotine dependence
CPT/HCPCS: 70355; 99284

== ENCOUNTER 2018-06-10 15:43 | Emergency (ER) | payer SELFPAY ==
[~2018-06-10] VITALS: Ht 172.7 cm; Wt 88.5 kg
[~2018-06-10 15:43] MED LIST changes: +CEFD300C3 PO; +SULF1TAB35 PO; +[UNRECOGNIZED DRUG - CODE]
[2018-06-10] MEDS ORDERED: MUPI15CR11 TP (16:36)
[2018-06-10] MEDS ORDERED: DOXY100T19 PO (16:36)
--- NOTE | 2018-06-10 16:37 | ED Integumentary General ---
General Chief Complaint: Bite-Animal/Human/Insect Stated Complaint: BUG BITE Nursing Triage Note: PATIENT HERE FOR CONCERNS OF A WOUND ON HIS ANTERIOR ASPECT OF HIS RIGHT SHOULDER. HE WAS TOLD IT MIGHT BE A BROWN RECLUSE BITE. HE ALSO HAS QUESTIONS ABOUT A TICK BITE ON HIS ANKLE THAT IS UNRELATED. Source: patient Exam Limitations: no limitations History of Present Illness Date Seen by Provider: Jun 10, 2018 Time Seen by Provider: 16:32 Initial Comments to ER with reports of a possible spider bite. He noticed a wound to the right anterior superior chest between the neck and the right shoulder. they have been present for about 2 or 3 days. He does not remember seeing or feeling anything bite him. He did notice that he started out as 2 red bumps and he scratched them and now they have a honey colored and crusted center about 1 cm in diameter. He denies any systemic symptoms such as joint pain fevers chills rash body aches or headache. States he was also bitten by a tick to the medial right ankle on April 06 and has some concerns that he may have a tickborne illness. Timing/Duration: getting worse Severity: moderate Location: torso Associated Symptoms: denies symptoms Allergies and Home Medications Allergies Coded Allergies: No Known Drug Allergies (Unverified , 02/10/12) Home Medications Atorvastatin Calcium 10 Mg Tablet, 10 MG PO DAILY, (Reported) Levothyroxine Sodium 125 Mcg Tablet, 125 MCG PO DAILY, (Reported) Lisinopril 20 Mg Tablet, 20 MG PO DAILY, (Reported) Multivitamin 1 Each Tablet, 1 EACH PO DAILY, (Reported) Pantoprazole Sodium 40 Mg Tablet.dr, 40 MG PO DAILY Prescribed by: JERSON YORK on 04/24/17 09 Sertraline Hcl 100 Mg Tab, 100 MG PO DAILY@0900, (Reported) Sucralfate 1 Gm Tablet, 1 GM PO QID Prescribed by: JERSON YORK on 04/24/17952 Sulfamethoxazole/Trimethoprim 1 Each Tablet, 1 EACH PO BID Prescribed by: CHARISSE EDWARDS on 04/04/18 0230 Topiramate 100 Mg Tablet, 100 MG PO DAILY, (Reported) Patient Home Medication List Home Medication List Reviewed: Yes Constitutional: see HPI EENTM: see HPI Respiratory: no symptoms reported Cardiovascular: no symptoms reported Genitourinary: no symptoms reported Musculoskeletal: no symptoms reported Skin: no symptoms reported Psychiatric/Neurological: No Symptoms Reported Endocrine: No Symptoms Reported Hematologic/Lymphatic: No Symptoms Reported Past Kkwwket-Fogymk-Clndoz Hx Patient Social History Alcohol Use: Denies Use Recreational Drug Use: No Smoking Status: Never a Smoker 2nd Hand Smoke Exposure: No Recent Foreign Travel: No Contact w/Someone Who Travel: No Recent Infectious Disease Expo: No Recent Hopitalizations: No Physical Abuse: No Sexual Abuse: No Immunizations Up To Date Tetanus Booster (TDap): Unknown Seasonal Allergies Seasonal Allergies: No Past Medical History Surgeries: Yes (HERNIA REPAIR) Abdominal, Tonsillectomy Respiratory: Yes (cough at times) Chronic Bronchitis, Sleep Apnea Currently Using CPAP: No Currently Using BIPAP: No Cardiac: Yes High Cholesterol, Hypertension Neurological: No Reproductive Disorders: No Sexually Transmitted Disease: No HIV/AIDS: No (STATES HE WAS TESTED RECENTLY) Kidney Stones Gastrointestinal: Yes (bloody stools) Gastroesophageal Reflux, Hemorrhoids Musculoskeletal: Yes Fractures Endocrine: Yes Hypothyroidsim Cancer: No Psychosocial: Yes Anxiety, Depression Nursing Suicide Risk Score: 0 Integumentary: No Blood Disorders: No Physical Exam Vital Signs Vital Signs - First Documented 06/10/18 16:03 Temp 97.3 Pulse 92 Resp 18 B/P (MAP) 131/84 (100) Pulse Ox 98 Capillary Refill : Less Than 3 Seconds General Appearance: WD/WN, no apparent distress HEENT: PERRL/EOMI, normal ENT inspection Neck: non-tender, full range of motion Respiratory: no respiratory distress, no accessory muscle use Gastrointestinal: normal bowel sounds, non tender, soft Neurologic/Psychiatric: alert, normal mood/affect, oriented x 3 Skin: normal color, warm/dry Skin Problem Character: abscess, other ( cm in diameter area of erythema to the right shoulder and medial to this is a 1 cm area of erythema. In the center of the knees is a eschar honey-colored with a bit of purulent material able to be expressed. There is no fluctuance or induration. Culture of this was collected.) Progress/Results/Core Measures Results/Orders My Orders Orders - JOSE HERNANDEZ APRN Wound Culture (06/10/18 16:30) Tick Panel With Lyme Eia (06/10/18 16:30) Vital Signs/I&O 06/10/18 16:03 Temp 97.3 Pulse 92 Resp 18 B/P (MAP) 131/84 (100) Pulse Ox 98 Blood Pressure Mean: 100 Departure Impression Primary Impression: Insect bite Additional Impression: Soft tissue infection Disposition: 01 HOME, SELF-CARE Condition: Stable Departure-Patient Inst. Decision time for Depature: 16:35 Referrals: [facility] (PCP/Family) Primary Care Physician Patient Instructions: Insect Bites and Stings (DC) Add. Discharge Instructions: 1. Oral antibiotics as directed 2. Cool compresses to this area 3. Apply the topical antibiotics as directed twice daily for 5 days. Scripts Mupirocin Calcium (Mupirocin) 15 Gm Cream..g. 1 GM TP BID for 5 Days, #1 TUBE Prov: JOSE HERNANDEZ APRN 06/10/18 Doxycycline Monohydrate (Doxycycline Monohydrate) 100 Mg Tablet 100 MG PO BID, #14 TAB Prov: JOSE HERNANDEZ APRN 06/10/18 JOSE HERNANDEZ APRN Jun 10, 2018 16:37
[2018-06-10 17:11] VITALS: BP 131/84
== END 2018-06-10 17:11 | disposition home or self-care (01) ==
LOC: EDUNIT# 15:43 → ER 15:45
DX: S40.261A Insect bite (nonvenomous) of right shoulder, initial encounter (principal); L08.9 Local infection of the skin and subcutaneous tissue, unspecified; J42 Unspecified chronic bronchitis; I10 Essential (primary) hypertension; E78.00 Pure hypercholesterolemia, unspecified; E03.9 Hypothyroidism, unspecified; F41.9 Anxiety disorder, unspecified; F32.9 Major depressive disorder, single episode, unspecified; Z87.442 Personal history of urinary calculi; Z90.89 Acquired absence of other organs; W57.XXXA Bitten or stung by nonvenomous insect and other nonvenomous arthropods, initial encounter
CPT/HCPCS: 36415; 86618; 86666; 86668; 86757; 87070; 87077; 87186; 87205; 99283

== ENCOUNTER 2020-02-05 11:13 | Observation (INO) | payer SELFPAY ==
[~2020-02-05] VITALS: Ht 172.7 cm; Wt 82.8 kg
[~2020-02-05 11:13] MED LIST changes: +DOXY100T31 PO; +MUPI15CR11 TP
[2020-02-05] MEDS ORDERED: LACTATED RINGERS 1,000 ML IV ONE ×4 (11:27→21:15)
[2020-02-05] MEDS ORDERED: D5W IV ONE ×2 (11:30→12:30)
[2020-02-05] MEDS ORDERED: ACETYLCYSTEINE IV ONE ×2 (11:30→12:30)
--- NOTE | 2020-02-05 11:35 | ED Psychosocial ---
General Chief Complaint: Overdose Stated Complaint: VOMITING;POSS OVERDOSE History of Present Illness Date Seen by Provider: Feb 05, 2020 Time Seen by Provider: 11:20 Initial Comments 54-year-old male reports taking approximately 500 pills of acetaminophen yesterday afternoon between [id number], then 1/2 bottle of liquid Nyquil with the intention to harm himself. He drank 15 ml of [place] wine and began vomitnig at 1600. He vomited countless times through the evening and night. He tried to drink water and eat food this am and began vomiting. He denies thoughts of harming himself or others at this time. He does have a hi story of previous suicidal ideations in the . He does not see anyone for mental health at this time. He reports "my life" is the reason he wanted to harm himself, no added stress or events yesterday. He works for an [employer]. Timing/Duration: yesterday Severity: moderate Associated Symptoms: suicidal ideation Allergies and Home Medications Allergies Coded Allergies: amoxicillin (Verified Allergy, Unknown, 02/05/20) Home Medications Brexpiprazole 1 Mg Tablet, 1 MG PO DAILY, (Reported) Duloxetine HCl 60 Mg Capsule.dr, 60 MG PO BID, (Reported) Patient Home Medication List Home Medication List Reviewed: Yes Review of Systems Constitutional: no symptoms reported, see HPI Psychiatric/Neurological: See HPI, Emotional Problems All Other Systems Reviewed Negative Unless Noted: Yes Past Zjqkdce-Bbzyxm-Nrzktn Hx Past Med/Social Hx: Reviewed Nursing Past Med/Soc Hx Patient Social History 2nd Hand Smoke Exposure: No Recent Foreign Travel: No Contact w/Someone Who Travel: No Recent Hopitalizations: No Immunizations Up To Date Tetanus Booster (TDap): Unknown Seasonal Allergies Seasonal Allergies: No Past Medical History Surgeries: Yes (HERNIA REPAIR) Abdominal, Tonsillectomy Respiratory: Yes (cough at times) Chronic Bronchitis, Sleep Apnea Currently Using CPAP: No Currently Using BIPAP: No Cardiac: Yes High Cholesterol, Hypertension Neurological: No Reproductive Disorders: No Sexually Transmitted Disease: No HIV/AIDS: No (STATES HE WAS TESTED RECENTLY) Kidney Stones Gastrointestinal: Yes (bloody stools) Gastroesophageal Reflux, Hemorrhoids Musculoskeletal: Yes Fractures Endocrine: Yes Hypothyroidsim Cancer: No Psychosocial: Yes Anxiety, Depression Integumentary: No Blood Disorders: No Physical Exam Vital Signs - First Documented 02/05/20 11:19 Temp 36.6 Pulse 102 Resp 18 B/P (MAP) 132/91 (105) Pulse Ox 98 O2 Delivery Room Air Capillary Refill : Height, Weight, BMI Height: 5'8.00" Weight: 195lbs. 0oz. 88.207668ul; 31.0 BMI Method:Stated General Appearance: WD/WN, no apparent distress HEENT: PERRL/EOMI, normal ENT inspection, TMs normal, pharynx normal Neck: non-tender, full range of motion, supple, normal inspection Respiratory: chest non-tender, lungs clear, normal breath sounds, no respiratory distress Cardiovascular: normal peripheral pulses, regular rate, rhythm, no murmur Gastrointestinal: normal bowel sounds, non tender, soft; No guarding, No rebound, No tenderness Extremities: normal range of motion, non-tender, normal inspection, no pedal edema, normal capillary refill Neurologic/Psychiatric: no motor/sensory deficits, alert, normal mood/affect, oriented x 3 Appearance/Memory: appropriate appearance, appropriate insight, neat, no memory impairment Behavior/Eye Contact: cooperative, good eye contact, normal speech Thoughts/Hallucinations: normal thought pattern, no apparent hallucination Skin: normal color, warm/dry Progress/Results/Core Measures Results/Orders Lab Results Laboratory Tests Test 02/05/20 11:30 02/05/20 11:50 02/05/20 12:24 02/05/20 14:11 Range/Units White Blood Count 20.9 H 4.3-11.0 10^3/uL Red Blood Count 5.95 H 4.35-5.85 10^6/uL Hemoglobin 18.1 H 13.3-17.7 G/DL Hematocrit 51 40-54 % Mean Corpuscular Volume 85 80-99 FL Mean Corpuscular Hemoglobin 30 25-34 PG Mean Corpuscular Hemoglobin Concent 36 32-36 G/DL Red Cell Distribution Width 12.7 10.0-14.5 % Platelet Count 345 130-400 10^3/uL Mean Platelet Volume 9.7 7.4-10.4 FL Neutrophils (%) (Auto) 92 H 42-75 % Lymphocytes (%) (Auto) 6 L 12-44 % Monocytes (%) (Auto) 2 0-12 % Eosinophils (%) (Auto) 0 0-10 % Basophils (%) (Auto) 0 0-10 % Neutrophils # (Auto) 19.3 H 1.8-7.8 X 10^3 Lymphocytes # (Auto) 1.3 1.0-4.0 X 10^3 Monocytes # (Auto) 0.3 0.0-1.0 X 10^3 Eosinophils # (Auto) 0.0 0.0-0.3 10^3/uL Basophils # (Auto) 0.0 0.0-0.1 10^3/uL Neutrophils % (Manual) 92 % Lymphocytes % (Manual) 4 % Monocytes % (Manual) 1 % Reactive Lymphocytes 3 % Blood Morphology Comment NORMAL Prothrombin Time 14.4 12.2-14.7 SEC INR Comment 1.1 0.8-1.4 Activated Partial Thromboplast Time 28 24-35 SEC Sodium Level 135 135-145 MMOL/L Potassium Level 4.0 3.6-5.0 MMOL/L Chloride Level 104 98-107 MMOL/L Carbon Dioxide Level 19 L 21-32 MMOL/L Anion Gap 12 5-14 MMOL/L Blood Urea Nitrogen 12 7-18 MG/DL Creatinine 1.34 H 0.60-1.30 MG/DL Estimat Glomerular Filtration Rate 55 BUN/Creatinine Ratio 9 Glucose Level 141 H 70-105 MG/DL Calcium Level 9.7 8.5-10.1 MG/DL Corrected Calcium 8.5-10.1 MG/DL Magnesium Level 2.1 1.6-2.4 MG/DL Total Bilirubin 1.2 H 0.1-1.0 MG/DL Aspartate Amino Transf (AST/SGOT) 39 H 5-34 U/L Alanine Aminotransferase (ALT/SGPT) 39 0-55 U/L Alkaline Phosphatase 76 40-136 U/L Total Protein 8.3 H 6.4-8.2 GM/DL Albumin 5.0 H 3.2-4.5 GM/DL Free Thyroxine 0.98 0.70-1.48 NG/DL TSH Humphreys Testing 6.49 H 0.35-4.94 UIU/ML Salicylates Level < 5.0 L 5.0-20.0 MG/DL Acetaminophen Level 48 *H 10-30 UG/ML Serum Alcohol < 10 <10 MG/DL Lactic Acid Level 2.08 *H 4.47 *H 0.50-2.00 MMOL/L Urine Color YELLOW Urine Clarity CLEAR Urine pH 5.5 5-9 Urine Specific Sn[place] >=1.030 1.016-1.022 Urine Protein TRACE H NEGATIVE Urine Glucose (UA) NEGATIVE NEGATIVE Urine Ketones 1+ H NEGATIVE Urine Nitrite NEGATIVE NEGATIVE Urine Bilirubin NEGATIVE NEGATIVE Urine Urobilinogen 0.2 < = 1.0 MG/DL Urine Leukocyte Esterase NEGATIVE NEGATIVE Urine RBC (Auto) NEGATIVE NEGATIVE Urine RBC NONE /HPF Urine WBC RARE /HPF Urine Squamous Epithelial Cells RARE /HPF Urine Crystals NONE /LPF Urine Bacteria NEGATIVE /HPF Urine Casts NONE /LPF Urine Mucus NEGATIVE /LPF Urine Culture Indicated NO Urine Opiates Screen NEGATIVE NEGATIVE Urine Oxycodone Screen NEGATIVE NEGATIVE Urine Methadone Screen NEGATIVE NEGATIVE Urine Propoxyphene Screen NEGATIVE NEGATIVE Urine Barbiturates Screen NEGATIVE NEGATIVE Ur Tricyclic Antidepressants Screen NEGATIVE NEGATIVE Urine Phencyclidine Screen NEGATIVE NEGATIVE Urine Amphetamines Screen NEGATIVE NEGATIVE Urine Methamphetamines Screen NEGATIVE NEGATIVE Urine Benzodiazepines Screen POSITIVE H NEGATIVE Urine Cocaine Screen NEGATIVE NEGATIVE Urine Cannabinoids Screen NEGATIVE NEGATIVE Test 02/05/20 17:21 Range/Units White Blood Count 20.1 H 4.3-11.0 10^3/uL Red Blood Count 5.44 4.35-5.85 10^6/uL Hemoglobin 16.5 13.3-17.7 G/DL Hematocrit 47 40-54 % Mean Corpuscular Volume 86 80-99 FL Mean Corpuscular Hemoglobin 30 25-34 PG Mean Corpuscular Hemoglobin Concent 35 32-36 G/DL Red Cell Distribution Width 12.8 10.0-14.5 % Platelet Count 290 130-400 10^3/uL Mean Platelet Volume 9.7 7.4-10.4 FL Neutrophils (%) (Auto) 89 H 42-75 % Lymphocytes (%) (Auto) 6 L 12-44 % Monocytes (%) (Auto) 5 0-12 % Eosinophils (%) (Auto) 0 0-10 % Basophils (%) (Auto) 0 0-10 % Neutrophils # (Auto) 17.9 H 1.8-7.8 X 10^3 Lymphocytes # (Auto) 1.2 1.0-4.0 X 10^3 Monocytes # (Auto) 1.0 0.0-1.0 X 10^3 Eosinophils # (Auto) 0.0 0.0-0.3 10^3/uL Basophils # (Auto) 0.0 0.0-0.1 10^3/uL My Orders Orders - [facility] Ondansetron Injection (Zofran Injectio (02/05/20 11:45) Lactic Acid Analyzer (02/05/20 11:44) Ed Iv/Invasive Line Start (02/05/20 12:10) Lactated Ringers (Lr 1000 Ml Iv Solution (02/05/20 12:10) Famotidine Injection (Pepcid Injection) (02/05/20 21:00) Famotidine Injection (Pepcid Injection) (02/05/20 13:30) Medications Given in ED Current Medications Medications Dose Ordered Sig/Sanam Route Start Time Stop Time Status Last Admin Dose Admin Acetylcysteine 3850 mg/Dextrose/ Water 519.25 ml @ 129.813 mls/hr UD ONCE IV 02/05/20 12:30 02/05/20 16:29 DC 02/05/20 13:29 129.813 MLS/HR Acetylcysteine 81304 mg/Dextrose/ Water 258 ml @ 258 mls/hr UD ONCE IV 02/05/20 11:30 02/05/20 12:29 DC 02/05/20 11:56 258 MLS/HR Lactated Ringer's 1,000 ml @ 0 mls/hr Q0M ONCE IV 02/05/20 11:27 02/05/20 11:33 DC 02/05/20 11:40 0 MLS/HR Lactated Ringer's 1,000 ml @ 0 mls/hr Q0M ONCE IV 02/05/20 12:10 02/05/20 12:12 DC 02/05/20 12:32 1,000 MLS/HR Ondansetron HCl 8 mg ONCE ONCE IVP 02/05/20 11:45 02/05/20 11:46 DC 02/05/20 11:42 8 MG Vital Signs/I&O 02/05/20 02/05/20 02/05/20 02/05/20 11:19 13:23 14:00 14:13 Temp 36.6 36.6 Pulse 102 78 91 Resp 18 21 21 B/P (MAP) 132/91 (105) 125/77 139/88 Pulse Ox 98 99 100 100 O2 Delivery Room Air Room Air Room Air Room Air 02/05/20 02/05/20 15:22 16:49 Temp 37.7 Pulse 87 Resp 18 B/P (MAP) 165/104 (124) Pulse Ox 98 98 O2 Delivery Room Air Room Air Progress Progress Note : Time: 11:20 Progress Note Patient seen and evaluated by myself and Dr. Salcido. Will obtain labs, EKG, LR IV fluids, 1st dose of Acetodote. 1145 Spoke to Poison Control, agreed with labs, recommended to Lactic Acid, agreed with IV Fluids and first dose of Acetodote, then administer additional doses pending his lab values. 1215 acetaminophen level XLVIII, lactic acid 2.08, AST 39 and ALT 39, WBC 20.9. Will start second liter of lactated Ringer's IV. 1230 patient vomited times one. Will give Zofran 8 mg IV and Pepcid 20 mg IV. Spoke to poison control with lab results, agreed with plan to start the first 4 hour maintenance at this ED ago based on his acetaminophen level. He suggested not repeating labs until the patient has the 4 hour maintenance and checking acetaminophen and CMP at that time. 1300 patient reports to be feeling better no further nausea or vomiting. Taking ice chips. Continues to have no suicidal ideations. Speaking to this provider in nurse's appropriately. 1310 Dr. Dennis agreeable with admission and plans per poison control. 1400 patient has remained stable, transferring to stepdown ICU. Initial ECG Impression Date: Feb 05, 2020 Initial ECG Impression Time: 11:30 Initial ECG Rate: 100 Initial ECG Rhythm: S.Tach Initial ECG Intervals: Normal Initial ECG Intervals MD 140; QRSD 80; QT 360; QTc 465. [place] P 40, QRS 8, T 37 Initial ECG Impression: Normal Initial ECG Comparisson: Unchanged Comment Reviewed by myself and Dr. Salcido. Departure Impression Primary Impression: Acetaminophen overdose Qualified Codes: T39.1X2A - Poisoning by 4-aminophenol derivatives, intentional self-harm, initial encounter Additional Impression: Suicidal ideation Disposition: 09 ADMITTED INPATIENT Condition: Stable Departure-Patient Inst. Referrals: [facility] [place] (PCP/Family) Primary Care Physician Patient Instructions: ALCOHOL AND SUBSTANCE ABUSE MOISES BOSCH Feb 05, 2020 11:35
[2020-02-05 11:39] LABS: BASOPHILS % (AUTO) 0 % (0-10); EOSINOPHILS % (AUTO) 0 % (0-10); HEMATOCRIT 51 % (40-54); HEMOGLOBIN 18.1 G/DL (13.3-17.7); LYMPHOCYTES # (AUTO) 1.3 X 10^3 (1.0-4.0); LYMPHOCYTES % (AUTO) 6 % (12-44); MEAN CORPUSCULAR HEMOGLOBIN 30 PG (25-34); MEAN CORPUSCULAR HGB CONC 36 G/DL (32-36); MEAN CORPUSCULAR VOLUME 85 FL (80-99); MEAN PLATELET VOLUME 9.7 FL (7.4-10.4); MONOCYTES # (AUTO) 0.3 X 10^3 (0.0-1.0); MONOCYTES % (AUTO) 2 % (0-12); NEUTROPHILS # (AUTO) 19.3 X 10^3 (1.8-7.8); NEUTROPHILS % (AUTO) 92 % (42-75); PLATELET COUNT 345 10^3/uL (130-400); RED CELL DISTRIBUTION WIDTH 12.7 % (10.0-14.5); WHITE BLOOD COUNT 20.9 10^3/uL (4.3-11.0)
[2020-02-05] MEDS ORDERED: ONDANSETRON 4 MG/2 ML (SDV) Z0FRAN IVP ONE (11:45)
--- NOTE | 2020-02-05 11:45 | NUR ---
POISON CONTROL CALLED
[2020-02-05 11:51] LABS: INR 1.1 (0.8-1.4); PROTHROMBIN TIME PATIENT 14.4 SEC (12.2-14.7)
[2020-02-05 12:03] LABS: ALANINE AMINOTRANSFERASE 39 U/L (0-55); ALKALINE PHOSPHATASE 76 U/L (40-136); BILIRUBIN,TOTAL 1.2 MG/DL (0.1-1.0); BUN/CREATININE RATIO 9; CALCIUM 9.7 MG/DL (8.5-10.1); CARBON DIOXIDE 19 MMOL/L (21-32); CHLORIDE 104 MMOL/L (98-107); CREATININE SERUM 1.34 MG/DL (0.60-1.30); GFR ESTIMATED 55; GLUCOSE 141 MG/DL (70-105); MAGNESIUM 2.1 MG/DL (1.6-2.4); SALICYLATE < 5.0 MG/DL (5.0-20.0); SODIUM 135 MMOL/L (135-145); TOTAL PROTEIN 8.3 GM/DL (6.4-8.2)
[2020-02-05 12:12] LABS: LYMPHOCYTES % (MANUAL) 4 %; MONOCYTES % (MANUAL) 1 %; NEUTROPHILS % (MANUAL) 92 %; RBC MORPH NORMAL; REACTIVE LYMPHOCYTES 3 %
[2020-02-05 12:19] LABS: ACETAMINOPHEN 48 UG/ML (10-30)
[2020-02-05 12:23] LABS: TSH (THYROID ANALYZER) 6.49 UIU/ML (0.35-4.94)
[2020-02-05 12:29] LABS: BILIRUBIN,URINE NEGATIVE (NEGATIVE); CLARITY,URINE CLEAR; COLOR,URINE YELLOW; GLUCOSE, URINE (UA) NEGATIVE (NEGATIVE); KETONES,URINE 1+ (NEGATIVE); LEUKOCYTE ESTERASE ,URINE NEGATIVE (NEGATIVE); NITRITE,URINE NEGATIVE (NEGATIVE); PH,URINE 5.5 (5-9); PROTEIN,URINE TRACE (NEGATIVE)
[2020-02-05 12:35] LABS: BACTERIA,URINE NEGATIVE /HPF; SQUAMOUS EPITHELIAL CELL,UR RARE /HPF; WBC,URINE RARE /HPF
[2020-02-05 12:42] LABS: AMPHETAMINE SCREEN, URINE NEGATIVE (NEGATIVE); BARBITURATE SCREEN URINE NEGATIVE (NEGATIVE); BENZODIAZEPINES SCREEN URINE POSITIVE (NEGATIVE); CANNABINOID SCREEN, URINE NEGATIVE (NEGATIVE); COCAINE SCREEN URINE NEGATIVE (NEGATIVE); METHADONE STAT NEGATIVE (NEGATIVE); METHAMPHETAMINE SCREEN URINE S NEGATIVE (NEGATIVE); OPIATE SCREEN URINE NEGATIVE (NEGATIVE); OXYCODONE STAT NEGATIVE (NEGATIVE); PROPOXYPHENE STAT NEGATIVE (NEGATIVE); TRICYCLIC ANTIDEPRESSANTS SCRE NEGATIVE (NEGATIVE)
--- NOTE | 2020-02-05 13:00 | NUR ---
BOTH IV'S INFILTRATES. IV RESTARTED IN L UPPER ARM #20
[2020-02-05 13:12] LABS: FREE T4 (FREE THYROXINE) 0.98 NG/DL (0.70-1.48)
[2020-02-05] MEDS ORDERED: FAMOTIDINE 20MG/2ML IV (PEPCID) ONE (13:30)
--- NOTE | 2020-02-05 13:47 | NUR ---
UPDATED LUCILA [facility]ELCH[facility] PT VOMITING AND INFILTRATION SITE IN L AC
--- NOTE | 2020-02-05 13:57 | History & Physical-Hospitalist ---
CHAY CAI,MED STUDENT 02/05/20 1357: History of Present Illness HPI/Chief Complaint Mr. Nath is a 54yo male who presented to [facility] ED on 02/05/2020 c/o nausea and vomiting, stating he consumed 500 pills of acetaminophen yesterday around 1:00pm. He admits he then consumed half of a bottle of Nyquil, stating he read online that "they shouldn't be taken together, so I drank it". Approximately 2 hours after consuming the acetaminophen, he began vomiting, and says he vomited around every 30 minutes through the night, so he came in this morning. He admits mild abdominal pain this morning, but denies any other symptoms. He states he consumed the pills with the intent to harm himself, stating "I didn't want to wake up", due to his work and financial situation. He has a hx of one other suicide attempt in the , when he used a dull knife to cut himself. He does not currently have a mental health provider. Source: patient Exam Limitations: no limitations Date Seen 02/05/20 Time Seen by a Provider: 13:15 Attending Physician Carmen Kaur DO [facility] Referring Physician Date of Admission Feb 05, 2020 at 12:50 Home Medications & Allergies Home Medications Reviewed patient Home Medication Reconciliation performed by pharmacy medication reconciliations rf test technician and/or nursing. Patients Allergies have been reviewed. Allergies Allergies Coded Allergies amoxicillin (Verified Allergy, Unknown, 02/05/20) Past Xoyzumq-Mtphye-Dusapu Hx Past Med/Social Hx: Reviewed Nursing Past Med/Soc Hx Patient Social History Marrital Status: single Employed/Student: employed Alcohol Use: Rarely Uses Number of Drinks Today: 0 Alcohol Beverage of Choice: Wine Recreational Drug Use: No Smoking Status: Never a Smoker (Rare use in ) 2nd Hand Smoke Exposure: No Recent Foreign Travel: No Contact w/other who traveled: No Recent Hopitalizations: No Recent Infectious Disease Expo: No Immunizations Up To Date Tetanus Booster (TDap): Unknown Seasonal Allergies Seasonal Allergies: No Past Medical History Surgeries: Abdominal, Tonsillectomy Respiratory: Sleep Apnea Currently Using CPAP: No Currently Using BIPAP: No Cardiac: High Cholesterol, Hypertension Reproductive: No Sexually Transmitted Disease: No HIV/AIDS: No (STATES HE WAS TESTED RECENTLY) Genitourinary: Kidney Stones Gastrointestinal: Gastroesophageal Reflux, Hemorrhoids Musculoskeletal: Fractures Endocrine: Hypothyroidsim Psychosocial: Anxiety, Suicide Attempts, Depression History of Blood Disorders: No Review of Systems Constitutional: No chills, No dizziness, No fever, No weakness EENTM: throat pain; No hearing loss, No blurred vision, No vision loss, No nose congestion Respiratory: No cough, No hemoptysis, No short of breath, No wheezing Cardiovascular: No chest pain, No edema, No palpitations Gastrointestinal: abdominal pain; No constipation, No diarrhea, No dysphagia, N o hematemesis; heartburn, nausea, vomiting Genitourinary: No dysuria, No frequency, No hematuria, No hesitancy Musculoskeletal: back pain Psychiatric/Neurological: Anxiety, Depressed; Denies Headache, Denies Numbness, Denies Tingling Physical Exam Physical Exam Vital Signs Vital Signs - First Documented 02/05/20 11:19 Temp 36.6 Pulse 102 Resp 18 B/P (MAP) 132/91 (105) Pulse Ox 98 O2 Delivery Room Air Capillary Refill : Less Than 3 Seconds Height, Weight, BMI Height: 5'8.00" Weight: 195lbs. 0oz. 88.947337oa; 25.00 BMI Method:Stated General Appearance: No Apparent Distress, WD/WN HEENT: PERRL/EOMI; No Pale Conjunctivae (L), No Pale Conjunctivae (R), No Scleral Icterus (L), No Scleral Icterus (R) Neck: Full Range of Motion, Non Tender, Supple; No Thyromegaly Respiratory: Normal Breath Sounds, No Accessory Muscle Use, No Respiratory Distress; No Crackles, No Wheezing Cardiovascular: Regular Rate, Rhythm, No Edema, No Murmur, Normal Peripheral Pulses Gastrointestinal: Normal Bowel Sounds, Non Tender, Soft; No Distended, No Guarding Extremity: Normal Capillary Refill, Non Tender, No Calf Tenderness, No Pedal Edema Neurologic/Psychiatric: Alert, Oriented x3, No Motor/Sensory Deficits, 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 Assessment/Plan Admission Diagnosis Acetaminophen overdose Assessment and Plan Assessment: Intentional acetaminophen overdose Lactic acidosis HTN Depression Hx of suicide attempt Plan: Pt. has received 2 doses of acetylcysteine Monitor lactic acid Monitor ALT IV fluids Continue CARMEN Gomez DO 02/05/202050: History of Present Illness HPI/Chief Complaint CC: Purposeful OD on Tylenol HPI: This is a 54yoWM clinic patient of Ronaldo Khan who took 500 pills of Tylenol yesterday trying to commit suicide but then he started vomiting and sought out help from ER. Patient has been started on Mucomyst per Poison Control protocol and is currently no longer suicidal. Past Dgxmtbf-Lwfhle-Iavfpi Hx Past Med/Social Hx: Reviewed Nursing Past Med/Soc Hx, Reviewed and Corrections made Patient Social History Marrital Status: single Employed/Student: employed Alcohol Use: Occasionally Uses Smoking Status: Never a Smoker (Rare use in ) Past Medical History Respiratory: Sleep Apnea Psychosocial: Anxiety, Depression Review of Systems Constitutional: see HPI Physical Exam Physical Exam General Appearance: No Apparent Distress, Chronically ill Eyes: Right Eye Normal Inspection, Right Eye PERRL HEENT: PERRL/EOMI, TMs Normal, Normal ENT Inspection, Pharynx Normal, Moist Mucous Membranes Neck: Full Range of Motion, Normal Inspection, Non Tender Respiratory: Chest Non Tender, Lungs Clear, Normal Breath Sounds, No Accessory Muscle Use, No Respiratory Distress Cardiovascular: Regular Rate, Rhythm, No Edema, No Gallop, No JVD, No Murmur, Normal Peripheral Pulses Gastrointestinal: Normal Bowel Sounds, No Organomegaly, No Pulsatile Mass, Non Tender, Soft Back: Normal Inspection, No CVA Tenderness, No Vertebral Tenderness Extremity: Normal Capillary Refill, Normal Inspection, Normal Range of Motion, Non Tender, No Calf Tenderness, No Pedal Edema Neurologic/Psychiatric: Alert, Oriented x3, No Motor/Sensory Deficits, Normal Mood/Affect Skin: Normal Color, Warm/Dry Lymphatic: No Adenopathy Assessment/Plan Admission Diagnosis Assessment: Tylenol OD purposeful CRICKET Plan: Monitor liver function Mucomyst Admission Status: Observation Diagnosis/Problems Diagnosis/Problems (1) Acetaminophen overdose Status: Acute Qualifiers: Encounter type: initial encounter Injury intent: intentional self-harm Qualified Codes: T39.1X2A - Poisoning by 4-aminophenol derivatives, intentional self-harm, initial encounter (2) Suicidal ideation Status: Acute Supervisory-Addendum Brief Verification & Attestation Participated in pt care: history, MDM, physical Personally performed: exam, history, MDM, supervision of care Care discussed with: Medical Student Procedures: n/a Results interpretation: Verified all documentation Verification and Attestation of Medical Student E/M Service A medical student performed and documented this service in my presence. I reviewed and verified all information documented by the medical student and made modifications to such information, when appropriate. I personally performed the physical exam and medical decision making. Carmen Kaur, Feb 05, 2020,20:51 CHAY CAI,MED STUDENT Feb 05, 2020 13:57 CARMEN KAUR DO Feb 05, 2020 20:51
[2020-02-05 14:13] VITALS: BP 139/88
[2020-02-05] MEDS ORDERED: ONDANSETRON 4 MG/2 ML (SDV) Z0FRAN IV PRN (14:30)
[2020-02-05] MEDS ORDERED: DULO60CA6 PO (15:13)
[2020-02-05] MEDS ORDERED: BREX1TAB PO (15:13)
--- NOTE | 2020-02-05 15:14 | NUR ---
SPOKE WITH THE PT [facility] PT SAYS HE WAS TAKING MULTIPLE MEDS (LISINOPRIL, LEVOTHYROXINE, ATORVASTATIN,TOPAMAX, AND PROTONIX) BUT HE HAD NOT TAKEN ANY OF THESE IN OVER 6 MONTHS 08-26-2019 CYMBALTA 60MG #240/120DS 01-01-2020 REXULTI 1MG #90/90DS NO OTC
[2020-02-05 15:22] VITALS: BP 165/104
--- NOTE | 2020-02-05 16:11 | Pulmonary Consultation ---
History of Present Illness History of Present Illness Date Seen by Provider: Feb 05, 2020 Time Seen by Provider: 16:03 Date of Admission History of Present Illness 54yo with hx of depression presented to ED secondary to nausea and vomiting after ODing on 500 acetaminophen tabs followed by a bottle of NyQuil yesterday. Approximately 2 hours after consuming the acetaminophen, he began vomiting, and says he vomited around every 30 minutes through the night, so he came in this morning. Allergies and Home Medications Allergies Coded Allergies: amoxicillin (Verified Allergy, Unknown, 02/05/20) Home Medications Brexpiprazole 1 Mg Tablet, 1 MG PO DAILY, (Reported) Duloxetine HCl 60 Mg Capsule.dr, 60 MG PO BID, (Reported) Past Fzcfgxd-Gscjaw-Ddjpjn Hx Past Med/Social Hx: Reviewed Nursing Past Med/Soc Hx Patient Social History Alcohol Use: Rarely Uses Number of Drinks Today: 0 Alcohol Beverage of Choice: Wine Recreational Drug Use: No Smoking Status: Never a Smoker (Rare use in ) 2nd Hand Smoke Exposure: No Recent Foreign Travel: No Contact w/Someone Who Travel: No Recent Infectious Disease Expo: No Recent Hopitalizations: No Immunizations Up To Date Tetanus Booster (TDap): Unknown Seasonal Allergies Seasonal Allergies: No Past Medical History Surgeries: Yes (HERNIA REPAIR) Abdominal, Tonsillectomy Respiratory: Yes (cough at times) Chronic Bronchitis, Sleep Apnea Currently Using CPAP: No Currently Using BIPAP: No Cardiac: Yes High Cholesterol, Hypertension Neurological: No Reproductive Disorders: No Sexually Transmitted Disease: No HIV/AIDS: No (STATES HE WAS TESTED RECENTLY) Kidney Stones Gastrointestinal: Yes (bloody stools) Gastroesophageal Reflux, Hemorrhoids Musculoskeletal: Yes Fractures Endocrine: Yes Hypothyroidsim Cancer: No Psychosocial: Yes Anxiety, Suicide Attempts, Depression Integumentary: No Blood Disorders: No Sepsis Event Evaluation Height, Weight, BMI Height: 5'8.00" Weight: 195lbs. 0oz. 88.890305po; 25.85 BMI Method:Stated Exam Exam Vital Signs Date Time Temp Pulse Resp B/P (MAP) Pulse Ox O2 Delivery O2 Flow Rate FiO2 02/05/20 15:22 37.7 87 18 165/104 (124) 98 Room Air 02/05/20 14:13 36.6 91 21 139/88 100 Room Air 02/05/20 14:00 100 Room Air 02/05/20 13:23 78 21 125/77 99 Room Air 02/05/20 11:19 36.6 102 18 132/91 (105) 98 Room Air Height & Weight Height: 5'8.00" Weight: 195lbs. 0oz. 88.203537at; 25.85 BMI Method:Stated General Appearance: No Apparent Distress, WD/WN HEENT: PERRL/EOMI; No Pale Conjunctivae (L), No Pale Conjunctivae (R), No Scleral Icterus (L), No Scleral Icterus (R) Neck: Full Range of Motion, Non Tender, Supple; No Thyromegaly Respiratory: Normal Breath Sounds, No Accessory Muscle Use, No Respiratory Distress; No Crackles, No Wheezing Cardiovascular: Regular Rate, Rhythm, No Edema, No Murmur, Normal Peripheral Pulses Capillary Refill: Less Than 3 Seconds Extremity: Normal Capillary Refill, Non Tender, No Calf Tenderness, No Pedal Edema Neurologic/Psychiatric: Alert, Oriented x3, No Motor/Sensory Deficits, 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
--- NOTE | 2020-02-05 16:34 | NUR ---
CM/SS: This worker is notified about the pt needing a Mental Health Screening - Pt is not medically stable at this time. Mental Health Screener to be notified when pt is medically stable.
[2020-02-05] MEDS: ACETYLCYSTEINE IV ONE ×2 (16:47→18:35)
[2020-02-05] MEDS: D5W IV ONE ×2 (16:47→18:35)
[2020-02-05] MEDS: LACTATED RINGERS 1,000 ML IV SCH ×2 (17:09→20:11)
[2020-02-05 17:30] LABS: BASOPHILS % (AUTO) 0 % (0-10); EOSINOPHILS % (AUTO) 0 % (0-10); HEMATOCRIT 47 % (40-54); HEMOGLOBIN 16.5 G/DL (13.3-17.7); LYMPHOCYTES # (AUTO) 1.2 X 10^3 (1.0-4.0); LYMPHOCYTES % (AUTO) 6 % (12-44); MEAN CORPUSCULAR HEMOGLOBIN 30 PG (25-34); MEAN CORPUSCULAR HGB CONC 35 G/DL (32-36); MEAN CORPUSCULAR VOLUME 86 FL (80-99); MEAN PLATELET VOLUME 9.7 FL (7.4-10.4); MONOCYTES % (AUTO) 5 % (0-12); NEUTROPHILS # (AUTO) 17.9 X 10^3 (1.8-7.8); NEUTROPHILS % (AUTO) 89 % (42-75); PLATELET COUNT 290 10^3/uL (130-400); RED CELL DISTRIBUTION WIDTH 12.8 % (10.0-14.5); WHITE BLOOD COUNT 20.1 10^3/uL (4.3-11.0)
[2020-02-05 17:49] LABS: ACETAMINOPHEN 14 UG/ML (10-30); ALANINE AMINOTRANSFERASE 32 U/L (0-55); ALBUMIN 4.2 GM/DL (3.2-4.5); ALKALINE PHOSPHATASE 54 U/L (40-136); BUN/CREATININE RATIO 9; CALCIUM 8.9 MG/DL (8.5-10.1); CARBON DIOXIDE 21 MMOL/L (21-32); CHLORIDE 106 MMOL/L (98-107); CREATININE SERUM 1.07 MG/DL (0.60-1.30); GFR ESTIMATED > 60; GLUCOSE 123 MG/DL (70-105); POTASSIUM 3.3 MMOL/L (3.6-5.0); SODIUM 137 MMOL/L (135-145); TOTAL PROTEIN 6.9 GM/DL (6.4-8.2)
--- NOTE | 2020-02-05 18:10 | NUR ---
DR GREENE NOTIFIED OF PT'S POTASSIUM LEVEL OF 3.3 NEW ORDERS RECEIVED. SEE ORDER HX. DR KAUR ON FLOOR AND NOTIFIED OF DVT RISK ASSESSMENT SCORE, NEW ORDERS RECEIVED SEE ORDER HX.
[2020-02-05] MEDS ORDERED: ENOXAPARIN 40 MG/0.4 ML (LOVENOX) SYR SC SCH (18:15)
[2020-02-05] MEDS: POTASSIUM CL 10MEQ/50ML IVPB 50 ML IV SCH ×3 (18:35→20:52)
[2020-02-05 19:38] VITALS: BP 142/94
--- NOTE | 2020-02-05 19:54 | NUR ---
DR. GREENE AND DR. KAUR NOTIFIED OF PT CRITICAL LACTIC ACID RESULTS. NEW ORDERS OBTAINED FROM DR. GREENE, SEE ORDER HX.
[2020-02-05] MEDS: FAMOTIDINE 20MG/2ML IV (PEPCID) IV SCH (20:11)
[2020-02-05] MEDS ORDERED: FAMOTIDINE 20MG/2ML IV (PEPCID) IVP SCH (21:00)
[2020-02-05 23:16] VITALS: BP 122/84
[2020-02-06] MEDS: POTASSIUM CL 10MEQ/50ML IVPB 50 ML IV SCH ×3 (00:16→02:50)
--- NOTE | 2020-02-06 00:42 | NUR ---
POISON CONTROL CALLED THIS RN TO CHECK ON PT STATUS. THIS PT DISCUSSED LABS, VS, AND MEDICATIONS INFUSING. NO NEW INSTRUCTIONS GIVEN.
[2020-02-06] MEDS: LACTATED RINGERS 1,000 ML IV SCH ×4 (01:41→15:07)
[2020-02-06 03:53] LABS: BASOPHILS % (AUTO) 0 % (0-10); EOSINOPHILS % (AUTO) 0 % (0-10); HEMATOCRIT 45 % (40-54); HEMOGLOBIN 15.9 G/DL (13.3-17.7); LYMPHOCYTES # (AUTO) 1.8 X 10^3 (1.0-4.0); LYMPHOCYTES % (AUTO) 15 % (12-44); MEAN CORPUSCULAR HEMOGLOBIN 30 PG (25-34); MEAN CORPUSCULAR HGB CONC 35 G/DL (32-36); MEAN CORPUSCULAR VOLUME 86 FL (80-99); MEAN PLATELET VOLUME 10.1 FL (7.4-10.4); MONOCYTES # (AUTO) 0.7 X 10^3 (0.0-1.0); MONOCYTES % (AUTO) 6 % (0-12); NEUTROPHILS # (AUTO) 9.7 X 10^3 (1.8-7.8); NEUTROPHILS % (AUTO) 79 % (42-75); PLATELET COUNT 235 10^3/uL (130-400); WHITE BLOOD COUNT 12.2 10^3/uL (4.3-11.0)
[2020-02-06 04:13] VITALS: BP 135/77
[2020-02-06 04:17] LABS: ALANINE AMINOTRANSFERASE 28 U/L (0-55); ALBUMIN 3.7 GM/DL (3.2-4.5); ALKALINE PHOSPHATASE 51 U/L (40-136); BUN/CREATININE RATIO 8; CALCIUM 8.4 MG/DL (8.5-10.1); CARBON DIOXIDE 19 MMOL/L (21-32); CHLORIDE 110 MMOL/L (98-107); CREATININE SERUM 0.85 MG/DL (0.60-1.30); GFR ESTIMATED > 60; GLUCOSE 124 MG/DL (70-105); POTASSIUM 3.7 MMOL/L (3.6-5.0); SODIUM 140 MMOL/L (135-145)
--- NOTE | 2020-02-06 04:37 | Pulmonary Progress Note ---
Subjective Time Seen by a Provider: 04:37 Sepsis Event Evaluation Height, Weight, BMI Height: 5'8.00" Weight: 195lbs. 0oz. 88.883130cy; 25.85 BMI Method:Stated Focused Exam Lactate Level 02/05/20 19:30: Lactic Acid Level 3.54*H 02/05/20 21:28: Lactic Acid Level 3.15*H 02/05/20 23:40: Lactic Acid Level 1.91 Exam Exam Vital Signs Date Time Temp Pulse Resp B/P (MAP) Pulse Ox O2 Delivery O2 Flow Rate FiO2 02/06/20 04:13 37.3 80 18 135/77 (96) 96 Room Air 02/06/20 01:00 86 02/05/20 23:58 Room Air 02/05/20 23:16 37.7 95 18 122/84 (97) 97 Room Air 02/05/20 21:23 Room Air 02/05/20 21:20 Room Air 02/05/20 20:00 Room Air 02/05/20 19:38 37.6 97 18 142/94 (110) 20 02/05/20 19:00 114 02/05/20 16:49 98 Room Air 02/05/20 15:22 37.7 87 18 165/104 (124) 98 Room Air 02/05/20 14:17 101 02/05/20 14:13 36.6 91 21 139/88 100 Room Air 02/05/20 14:00 100 Room Air 02/05/20 13:23 78 21 125/77 99 Room Air 02/05/20 11:19 36.6 102 18 132/91 (105) 98 Room Air I & O 02/06/20 07:00 Intake Total 6278 ml Output Total 1525 ml Balance 4753 ml Height & Weight Height: 5'8.00" Weight: 195lbs. 0oz. 88.032281ms; 25.85 BMI Method:Stated General Appearance: No Apparent Distress, Chronically ill HEENT: PERRL/EOMI, TMs Normal, Normal ENT Inspection, Pharynx Normal, Moist Mucous Membranes Neck: Full Range of Motion, Normal Inspection, Non Tender Respiratory: Chest Non Tender, Lungs Clear, Normal Breath Sounds, No Accessory Muscle Use, No Respiratory Distress Cardiovascular: Regular Rate, Rhythm, No Edema, No Gallop, No JVD, No Murmur, Normal Peripheral Pulses Capillary Refill: Less Than 3 Seconds Gastrointestinal: normal bowel sounds, non tender, soft; No guarding, No rebound, No tenderness Extremity: Normal Capillary Refill, Normal Inspection, Normal Range of Motion, Non Tender, No Calf Tenderness, No Pedal Edema Neurologic/Psychiatric: Alert, Oriented x3, No Motor/Sensory Deficits, Normal Mood/Affect Skin: Normal Color, Warm/Dry Lymphatic: No Adenopathy Results Lab Laboratory Tests 02/05/20 11:30 02/05/20 17:21 02/06/20 03:32 Assessment/Plan Assessment/Plan Intentional acetaminophen overdose -Behaviour health -Poison control following Lactic acidosis HTN Depression Hx of suicide attempt KESHAV GREENE DO Feb 06, 2020 04:37
[2020-02-06 07:35] VITALS: BP 144/86
[2020-02-06] MEDS: FAMOTIDINE 20MG/2ML IV (PEPCID) IV SCH (08:58)
[2020-02-06 09:54] LABS: ALANINE AMINOTRANSFERASE 27 U/L (0-55); ALBUMIN 3.6 GM/DL (3.2-4.5); ALKALINE PHOSPHATASE 47 U/L (40-136); BILIRUBIN,DIRECT 0.3 MG/DL (0.0-0.3); BILIRUBIN,INDIRECT 0.4 MG/DL; BILIRUBIN,TOTAL 0.7 MG/DL (0.1-1.0); TOTAL PROTEIN 5.7 GM/DL (6.4-8.2)
[2020-02-06 09:56] LABS: ACETAMINOPHEN < 10 UG/ML (10-30)
--- NOTE | 2020-02-06 11:18 | NUR ---
CM/SS: Visited with pt as to his intentional harm and overdoes of acetaminophen Plan: Pt to be screen by Mental Health for a behavioral health placement Summary: Pt reports that he did try and overdose and feels as if he is overwhelmed with his job and financial. Pt initially shares that he is open to getting some help. Sister is in the room and feels as if that is a good idea. Referral made to [facility] declined per [facility] 11:25am Call to [facility] [phone] - requesting screen [facility] report if pt is willing and wants to go, not need to have a screening done. If pt is not willing and unsure they will screen. This worker went to talk with pt. Pt is reporting that he is not sure if he wants to go and get help at this time. He is explained the options as far a screening goes or voluntary placement. Family feel as if pt needs to go to a hospital. [facility] notified [phone] that pt is not willing and unsure and that a screener will need to come and screen pt. They will arrive at hospital in about 45 minutes. Addendum: 02/06/20 at 1629 by ARIA WISEMAN Pt did meet criteria for a Behavioral health placement. Behavioral health placement sought. Referral to [facility] - Pt Accepted. Dr Youssef talked with physician at [facility]- Dr. Connor. Affidavit completed per [facility] request, signed by physician. Pt notified of the plan - he is open to go. Copy of Screen is submitted with the discharge packet. Report information given to Gabi MELCHOR as to who to contact at [facility]. [facility] [phone] notified of the transport
--- NOTE | 2020-02-06 11:22 | Physical Therapy Evaluation ---
PT Evaluation-General Medical Diagnosis Admission Date Feb 05, 2020 at 12:50 Medical Diagnosis: acetaminophen OD Onset Date: Feb 05, 2020 Therapy Diagnosis Therapy Diagnosis: debility Height/Weight Height (Feet): 5 Height (Inches): 8.00 Weight (Pounds): 195 Weight (Ounces): 0 Precautions Precautions/Isolations: Fall Prevention, Standard Precautions Referral Physician: Jeannie Reason for Referral: Evaluation/Treatment Medical History Pertinent Medical History: HTN Current History ER secondary to intentional OD Reviewed History: Yes Social History Home: Apartment Current Living Status: Alone Prior Prior Level of Function SCALE: Activities may be completed with or without assistive devices. 6-Pqptlqqhvj-ugcfhbf completes the activity by him/herself with no assistance from a helper. 5-Set-up or Clean-up Assistance-helper sets up or cleans up; patient completes activity. Mcneil assists only prior to or following the activity. 4-Supervision or Touching Assistance-helper provides verbal cues and/or touching/steadying and/or contact guard assistance as patient completes activity. Assistance may be provided throughout the activity or intermittently. 3-Partial/Moderate Assistance-helper does LESS THAN HALF the effort. Mcneil lifts, holds or supports trunk or limbs, but provides less than half the effort. 2-Substantial/Maximal Assistance-helper does MORE THAN HALF the effort. Mcneil lifts or holds trunk or limbs and provides more than half the effort. 1-Vzllngehh-ldacke does ALL the effort. Patient does none of the effort to compl ete the activity. Or, the assistance of 2 or more helpers is required for the patient to complete the activity. If activity was not attempted, code reason: 7-Patient Refused. 9-Not Applicable-not attempted and the patient did not perform the activity before the current illness, exacerbation or injury. 10-Not Attempted due to Environmental Limitations-(lack of equipment, weather restraints, etc.). 88-Not Attempted due to Medical Conditions or Safety Concerns. Bed Mobility: 6 Transfers (B,C,W/C): 6 Gait: 6 Stairs: 6 Indoor Mobility (Ambulation): Independent Stairs: Independent Prior Devices Use: None PT Evaluation-Current Subjective Patient agrees to PT. Family present. Objective Patient Orientation: Normal For Age Attachments: IV ROM/Strength ROM Lower Extremities bilateral LE WFL Strength Lower Extremities 5/5 grossly bilateral LE Integumentary/Posture Integumentary refer to nursing notes Bowel Incontinence: No Bladder Incontinence: No Posture WFL Neuromuscular (Tone, Coordination, Reflexes) grossly intact Sensory Vision: Wears Glasses Hearing: Functional Sensation Right Lower Extremit: Intact Sensation Left Lower Extremity: Intact Transfers Roll Left to Right (QC): 6 Sit to Lying (QC): 6 Lying to Sitting/Side of Bed(Q: 6 Sit to Stand (QC): 6 Chair/Eyr-zm-Rliuh Xfer(QC): 6 Gait Does the Patient Walk?: Yes Mode of Locomotion: Walk Anticipated Mode of Locomotion: Walk Walk 10 feet (QC): 6 Walk 50 ft with 2 Turns(QC): 6 Walk 150 ft (QC): 6 Distance: 500' Gait Assistive Device: None Comments/Gait Description safe and functional with on deviation Balance Sitting Static: Normal Sitting Dynamic: Normal Standing Static: Normal Standing Dynamic: Normal Assessment/Needs 54 y.o. male, is currently at independent [facility] with all gross motor skills and does not require skilled therapy intervention. Rehab Potential: Good PT Plan Treatment/Plan Treatment Plan: Discontinue PT, goals met Treatment Plan: Other Treatment Duration: Feb 06, 2020 Frequency: 1 time per week Estimated Hrs Per Day: .25 hour per day Patient and/or Family Agrees t: Yes Time/GCodes Time In: 1030 Time Out: 1040 Total Billed Treatment Time: 10 Total Billed Treatment 1 visit EVLowC 10 min JEAN BOUDREAUX PT Feb 06, 2020 11:22
--- NOTE | 2020-02-06 11:23 | Progress Note - Hospitalist ---
CHAY CAI,MED STUDENT 02/06/20 1123: Subjective HPI/CC On Admission Date Seen by Provider: Feb 06, 2020 Time Seen by Provider: 08:30 CC: Purposeful OD on Tylenol HPI: This is a 54yoWM clinic patient of Ronaldo Khan who took 500 pills of Tylenol yesterday trying to commit suicide but then he started vomiting and sought out help from ER. Patient has been started on Mucomyst per Poison Control protocol and is currently no longer suicidal. Subjective/Events-last exam Pt. has no complaints this morning. He has not been nauseous or vomited since yesterday, and was able to eat breakfast this morning. Denies CP, SOB, abdominal pain. This mornings labs revealed lactic acid of 1.91, ALT 27, and acetaminophen less than 10. Patient's sister is currently at bedside. Focused Exam Lactate Level 02/05/20 19:30: Lactic Acid Level 3.54*H 02/05/20 21:28: Lactic Acid Level 3.15*H 02/05/20 23:40: Lactic Acid Level 1.91 Objective Exam Vital Signs Vital Signs Date Time Temp Pulse Resp B/P (MAP) Pulse Ox O2 Delivery O2 Flow Rate FiO2 02/06/20 09:00 Room Air 02/06/20 07:35 36.6 82 20 144/86 (105) 97 Capillary Refill : Less Than 3 Seconds General Appearance: No Apparent Distress, WD/WN HEENT: PERRL/EOMI, Pharynx Normal Neck: Non Tender, Supple; No Thyromegaly Respiratory: Chest Non Tender, Lungs Clear, Normal Breath Sounds, No Accessory Muscle Use, No Respiratory Distress; No Crackles, No Wheezing Cardiovascular: Regular Rate, Rhythm, No Edema, No Murmur, Normal Peripheral Pulses Gastrointestinal: Normal Bowel Sounds, Non Tender, Soft; No Distended, No Guarding Extremity: Normal Capillary Refill, No Calf Tenderness, No Pedal Edema Neurologic/Psychiatric: Alert, Oriented x3 Skin: Normal Color, Warm/Dry Results/Procedures Lab Laboratory Tests 02/05/20 11:30 02/05/20 17:21 02/06/20 03:32 Patient resulted labs reviewed. Assessment/Plan Assessment and Plan Assess & Plan/Chief Complaint Assessment: Intentional acetaminophen overdose Lactic acidosis - improving HTN Depression Hx of suicide attempt Plan: Pt. has received 3 doses of acetylcysteine Monitor lactic acid Monitor ALT IV fluids Continue Zofran prn PT & OT Mental health will screen Clinical Quality Measures DVT/VTE Risk/Contraindication: Risk Factor Score Per Nursin RFS Level Per Nursing on Admit: 2=Moderate CARMEN DENNIS DO 02/06/202032: Subjective Subjective/Events-last exam Pt doing pretty well Lactic acid trending down No more nausea or vomiting Will order PT and OT Mental health screening will be required Review of Systems General: Fatigue Objective Exam General Appearance: No Apparent Distress, WD/WN, Chronically ill Respiratory: Lungs Clear Cardiovascular: Regular Rate, Rhythm Neurologic/Psychiatric: Alert, Oriented x3, No Motor/Sensory Deficits, Normal Mood/Affect Assessment/Plan Assessment and Plan Assess & Plan/Chief Complaint Psych evaluation Diagnosis/Problems Diagnosis/Problems (1) Acetaminophen overdose Status: Acute Qualifiers: Qualified Codes: T39.1X2A - Poisoning by 4-aminophenol derivatives, intentional self-harm, initial encounter (2) Suicidal ideation Status: Acute Supervisory-Addendum Brief Verification & Attestation Participated in pt care: history, MDM, physical Personally performed: exam, history, MDM, supervision of care Care discussed with: Medical Student Procedures: n/a Results interpretation: Verified all documentation Verification and Attestation of Medical Student E/M Service A medical student performed and documented this service in my presence. I reviewed and verified all information documented by the medical student and made modifications to such information, when appropriate. I personally performed the physical exam and medical decision making. Carmen Dennis, Feb 06, 2020,20:33 CHAY CAI,MED STUDENT Feb 06, 2020 11:23 CARMEN DENNIS DO Feb 06, 2020 20:33
[2020-02-06 12:00] VITALS: BP 146/98
[2020-02-06 16:00] VITALS: BP 132/87
--- NOTE | 2020-02-06 17:00 | NUR ---
PT DISCHARGED AND ACCEPTED TO [facility]. PT IS TRAVELING TO UNIT VIA PERSONAL VEHICLE BY PARENTS. INFORMATION GIVEN TO THE FAMILY IN REGARDS TO GETTING TO UNIT. APPROVED BY DR BRENNAN FOR FAMILY TO TAKE PT. VITALS SIGNS STABLE. SPOKE WITH POISON CONTROL EARLIER TODAY ABOUT LAB LEVELS. POISON CONTROL CLOSED CASE. NO ACUTE CHANGES. NO NEW COMPLAINTS. THIS RN PRAYED WITH FAMILY AND PATIENT FOR HEALING BEFORE DISCHARGE. REPORT GIVEN TO JILL SOOD
[2020-02-06 17:15] VITALS: BP 132/87
--- NOTE | 2020-02-06 20:32 | Discharge Summary ---
Discharge Summary Hospital Course Was the Problem List Reviewed?: Yes Problems/Dx: (1) Acetaminophen overdose Status: Acute Qualifiers: Qualified Codes: T39.1X2A - Poisoning by 4-aminophenol derivatives, intentional self-harm, initial encounter (2) Suicidal ideation Status: Acute Hospital Course Date of Admission: Feb 05, 2020 at 12:50 Admission Diagnosis : Family Physician/Provider: [facility] Date of Discharge: 02/06/20 Discharge Diagnosis: Tylenol OD, Suicidal attempt Hospital Course: Patient had a short course after admitted and started on mucomyst per protocol after taking 500 tylenol tablets in order to end his life. Protocol followed and lactic acid normalized along with tylenol level and liver remained stable. Patient was accepted to [facility] for psych treatment and close medical monitoring. Labs and Pending Lab Test: Laboratory Tests 02/05/20 21:28: Lactic Acid Level 3.15*H 02/05/20 23:40: Lactic Acid Level 1.91 02/06/20 03:32: White Blood Count 12.2H, Red Blood Count 5.26, Hemoglobin 15.9, Hematocrit 45, Mean Corpuscular Volume 86, Mean Corpuscular Hemoglobin 30, Mean Corpuscular Hemoglobin Concent 35, Red Cell Distribution Width 13.0, Platelet Count 235, Mean Platelet Volume 10.1, Neutrophils (%) (Auto) 79H, Lymphocytes (%) (Auto) 15, Monocytes (%) (Auto) 6, Eosinophils (%) (Auto) 0, Basophils (%) (Auto) 0, Neutrophils # (Auto) 9.7H, Lymphocytes # (Auto) 1.8, Monocytes # (Auto) 0.7, Eosinophils # (Auto) 0.0, Basophils # (Auto) 0.0, Sodium Level 140, Potassium Level 3.7, Chloride Level 110H, Carbon Dioxide Level 19L, Anion Gap 11, Blood Urea Nitrogen 7, Creatinine 0.85, Estimat Glomerular Filtration Rate > 60, BUN/Creatinine Ratio 8, Glucose Level 124H, Calcium Level 8.4L, Corrected Calcium 8.6, Total Bilirubin 1.0, Aspartate Amino Transf (AST/SGOT) 25, Alanine Aminotransferase (ALT/SGPT) 28, Alkaline Phosphatase 51, Total Protein 6.0L, Albumin 3.7 02/06/20 09:26: Total Bilirubin 0.7, Aspartate Amino Transf (AST/SGOT) 20, Alanine Aminotransferase (ALT/SGPT) 27, Alkaline Phosphatase 47, Total Protein 5.7L, Alb umin 3.6, Direct Bilirubin 0.3, Indirect Bilirubin 0.4, Acetaminophen Level < 10L Home Meds Active Reported Rexulti (Brexpiprazole) 1 Mg Tablet 1 Mg PO DAILY Cymbalta (Duloxetine HCl) 60 Mg Capsule.dr 60 Mg PO BID Assessment/Pt Instructions Og psych Discharge Planning: <30 minutes discharge planning Discharge Instructions Pneumonia Vaccine Order Indica: Yes Discharge Physical Examination Vital Signs Vital Signs Date Time Temp Pulse Resp B/P (MAP) Pulse Ox O2 Delivery O2 Flow Rate FiO2 02/06/20 17:15 37.4 94 18 132/87 99 Room Air General Appearance: No Apparent Distress, WD/WN Allergies: Coded Allergies: amoxicillin (Verified Allergy, Unknown, 02/05/20) Discharge Summary Date of Admission Feb 05, 2020 at 12:50 Date of Discharge Feb 06, 2020 at 17:00 Discharge Date: Feb 06, 2020 Discharge Time: 1700 Admission Diagnosis Assessment: Tylenol OD purposeful CRICKET Plan: Monitor liver function Mucomyst Discharge Diagnosis (1) Acetaminophen overdose Status: Acute Qualifiers: Qualified Codes: T39.1X2A - Poisoning by 4-aminophenol derivatives, intentional self-harm, initial encounter (2) Suicidal ideation Status: Acute Clinical Quality Measures DVT/VTE Risk/Contraindication: Risk Factor Score Per Nursin RFS Level Per Nursing on Admit: 2=Moderate MEERA KAUR DO Feb 06, 2020 20:32
--- OUTSIDE RECORDS SUMMARY | 2020-02-07 09:13 | XMS REPORT | Clinical Summary ---
Author Author [facility] Organization [facility] Address Unknown Phone Unavailable Care Team Providers Care Asphalt Dauber Name Role Phone PCP Unavailable Allergies Not on File Medications Not on file Active Problems Not on file Social History Date Tobacco Use Types Packs/Day Years Used Never Assessed Sex Assigned at Date Recorded Not on file Industry Job Start Date Occupation Not on file Not on file Not on file Travel End Travel History Travel Start No recent travel history available. Last Filed Vital Signs Not on file Plan of Treatment Not on file Results Not on filefrom Last 3 Months
--- OUTSIDE RECORDS SUMMARY | 2020-02-07 09:13 | XMS REPORT | Encounter Summary ---
Author Author [facility] Address Unknown Phone Unavailable Care Team Providers Care Roll Former Name Role Phone PCP Unavailable Encounter Details Care Team Description Date Type Department Gloria Pryor MD [address] [place] [address] [phone] [facility] 03/29/2004 [facility] al Encounter [address] [place] [address] Social History Date Tobacco Use Types Packs/Day Years Used Never Assessed Sex Assigned at Date Recorded Not on file Industry Job Start Date Occupation Not on file Not on file Not on file Travel End Travel History Travel Start No recent travel history available. documented as of this encounter Plan of Treatment Not on filedocumented as of this encounter Visit Diagnoses Diagnosis Unspecified dental caries documented in this encounter
--- OUTSIDE RECORDS SUMMARY | 2020-02-07 09:15 | XMS REPORT ---
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 Active 688034731 Problem Hypercholesterolemia E78.0 Active 84172225 Problem Secondary hypertension I15.9 Active 27816359 Problem Acquired hypothyroidism E03.9 Active 030934449 Problem Anxiety F41.9 Active 37949059 Problem Tingling in extremities R20.2 Active 40306128 Problem Personality disorder in adult F60.9 Active 46083942 Problem Generalized anxiety disorder F41.1 A ctive 73560143 Problem Gastroesophageal reflux disease without esophagitis K21.9 Active 286842191 Problem Environmental allergies Z91.09 Active 412639359 Problem Hypothyroidism (acquired) E03.9 Acti ve 447589274 Problem Acute eczema L30.9 Active 0888173 02 Problem Depression, unspecified depression type F32.9 Active 17394728 Problem Major depressive disorder, recurrent, moderate F33 .1 Active 97774037 Problem Drug-induced erectile dysfunction N52.2 Active 530736079 Problem Acute left-sided low back pain with left-sided sciatica M54.42 Active 233993139 Problem Primary insomnia F51.01 Active 397 2004 ALLERGIES No Information ENCOUNTERS Encounter Location Date Diagnosis [facility] [place] [address] [id number] [place] [address] 14 Sep, 2019 [facility] [place] [address] [id number] [place] [address] Aug, Other senior living (current) drug therapy Z 79.899 [facility] [place] [address] [address] Aug, [facility] [place] [id number] [place] [address] Jul, Generalized anxiety disorder F41.1 ; Terell or depressive disorder, recurrent, moderate F33.1 ; Personality disorder in adult F60.9 and Other senior living (current) drug therapy Z79.899 [facility] [place] [id number] [place] [address] Jul, [facility] [place] [address] [address] Jul, [facility] [place] [address] [address] Jun, Generalized anxiety disorder F41.1 [facility] [place] [address] [address] Jun, [facility] [place] [address] [address] Apr, [facility] [place] [address] [address] March, [facility] [place] [address] [address] Feb, Generalized anxiety disorder F41.1 ; Terell or depressive disorder, recurrent, moderate F33.1 and Personality disorder in adult F60.9 [facility] [place] [id number] [place] [address] Jan, [facility] [place] [address] [address] Dec, [facility] [place] [address] [address] Dec, Acquired hypothyroidism E03.9 and Other senior living (current) drug therapy Z79.899 [facility] [place] [address] [address] Dec, Acquired hypothyroidism E03.9 [facility] [place] [address] [address] Nov, Generalized anxiety disorder F41.1 ; Terell or depressive disorder, recurrent, moderate F33.1 ; Personality disorder in adult F60.9 and 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 [facility] [place] [address] [address] Nov, [facility] [place] [address] [address] Oct, [facility] [place] [address] [address] Sep, Generalized anxiety disorder F41.1 ; Terell or depressive disorder, recurrent, moderate F33.1 and Personality disorder in adult F60.9 [facility] [place] [address] [address] Aug, [facility] [place] [address] [address] Aug, [facility] [place] [address] [address] Jul, Generalized anxiety disorder F41.1 [facility] [place] [address] [address] 24 Jul, 2018 [facility] [place] [address] [address] Jul, Acquired hypothyroidism E03.9 [facility] [place] [address] [address] 10 Jul, 2018 Generalized anxiety disorder F41.1 [facility] [place] [address] [address] 04 Jul, 2018 Generalized anxiety disorder F41.1 ; Terell or depressive disorder, recurrent, moderate F33.1 and Personality disorder in adult F60.9 [facility] [place] [address] [address] Jun, Generalized anxiety disorder F41.1 ; Terell or depressive disorder, recurrent, moderate F33.1 ; Primary insomnia F51.01 and Personality disorder in adult F60.9 [facility] [place] [address] [address] 30 May, 2018 Acquired hypothyroidism E03.9 [facility] [place] [address] [address] 27 May, 2018 Hypothyroidism (acquired) E03.9 and Corky roesophageal reflux disease without esophagitis K21.9 [facility] [place] [address] [address] Apr, [facility] [id number] [place] [address] Apr, Skin infection L08.9 [address] [address] [address] Apr, Generalized anxiety disorder F41.1 ; Terell or depressive disorder, recurrent, moderate F33.1 ; Primary insomnia F51.01 and Personality disorder in adult F60.9 [place] [address] [address] March, Generalized anxiety disorder F41.1 ; Terell or depressive disorder, recurrent, moderate F33.1 and Personality disorder in adult F60.9 [place] [address] [address] Feb, [place] [address] [address] Dec, Generalized anxiety disorder F41.1 ; Terell or depressive disorder, recurrent, moderate F33.1 and Personality disorder in adult F60.9 [facility] [id number] [place] [address] Dec, Acute left-sided low back pa in with left-sided sciatica M54.42 [facility] [place] [address] [address] Nov, [place] [address] [id number] Oct, Generalized anxiety disorder F41.1 ; Terell or depressive disorder, recurrent, moderate F33.1 and Personality disorder in adult F60.9 [facility] [place] [address] [id number] Sep, Acquired hypothyroidism E03.9 ; Hypercho lesterolemia E78.0 ; Generalized anxiety disorder F41.1 and Drug-induced erectile dysfunction N52.2 [place] [address] [address] Sep, [address] [address] Sep, Acquired hypothyroidism E03.9 ; Hypercho lesterolemia E78.0 ; Generalized anxiety disorder F41.1 and Drug-induced erectile dysfunction N52.[address] [address] 07 Sep, 2017 Generalized anxiety disorder F41.1 ; Terell or depressive disorder, recurrent, moderate F33.1 and Personality disorder in adult F60.9 [facility] [address] [id number] Aug, Dental examination Z01.20 [facility] [address] [id number] Aug, Dental caries K02.[address] [address] Aug, [facility] [address] [id number] Aug, Dental examination Z01.[address] [address] Jul, Major depressive disorder, recurrent, mo derate F33.[address] [address] 19 Jul, 2017 Generalized anxiety disorder F41.1 ; Terell or depressive disorder, recurrent, moderate F33.1 and Personality disorder in adult F60.9 [place] [address] [address] Jul, Generalized anxiety disorder F41.1 ; Terell or depressive disorder, recurrent, moderate F33.1 and Personality disorder in adult F60.9 [place] [address] [id number] Jun, Generalized anxiety disorder F41.1 ; Terell or depressive disorder, recurrent, moderate F33.1 and Personality disorder in adult F60.9 [place] [address] [address] Apr, Generalized anxiety disorder F41.1 ; Terell or depressive disorder, recurrent, moderate F33.1 and Personality disorder in adult F60.9 [place] [address] [address] March, Acquired hypothyroidism E03.[address] [address] March, Acquired hypothyroidism E03.9 and Left l ower quadrant pain R10.[address] [address] March, Hypercholesterolemia E78.0 ; Acquired hy pothyroidism E03.9 ; Insomnia, unspecified type G47.00 ; Secondary hypertension I15.9 ; Gastroesophageal reflux disease, esophagitis presence not specified K21.9 ; Tingling in extremities R20.2 ; Environmental allergies Z91.09 ; Depression, unspecified depression type F32.9 and Left lower quadrant pain R10.32 [place] [address] [address] Feb, High risk sexual behavior Z72.[address] [address] Feb, Major depressive disorder, recurrent, mo derate F33.1 and Generalized anxiety disorder F41.[address] [address] Dec, Major depressive disorder, recurrent, mo derate F33.1 [place] [address] [address] 17 Dec, 2016 [place] [address] [address] 16 Dec, 2016 Acquired hypothyroidism E03.9 and High r isk sexual behavior Z72.51 [place] [address] [address] 07 Dec, 2016 Major depressive disorder, recurrent, mo derate F33.1 and Generalized anxiety disorder F41.1 [place] [address] [address] Dec, Acquired hypothyroidism E03.9 ; Secondar y hypertension I15.9 and Acute eczema L30.9 [place] [address] [address] Nov, Acquired hypothyroidism E03.9 ; Insomnia , unspecified type G47.00 ; Depression, unspecified depression type F32.9 ; 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 ; Hypercholesterolemia E78.0 ; Gastroesophageal reflux disease, esophagitis presence not specified K21.9 ; Anxiety F41.9 and Secondary hypertension I15.9 [place] [address] [address] Oct, Major depressive disorder, recurrent, mo derate F33.1 and Generalized anxiety disorder F41.1 [place] [address] [address] Aug, [address] [address] Aug, Insomnia, unspecified type G47.00 ; Acqu ired hypothyroidism E03.9 ; Hypercholesterolemia E78.0 and Gastroesophageal reflux disease, esophagitis presence not specified K21.9 [place] [address] [address] Jul, [address] [address] Jul, Major depressive disorder, recurrent, in partial remission F33.41 and Generalized anxiety disorder F41.1 [place] [address] [address] Jun, [place] [address] [address] Jun, Cervical pain (neck) M54.2 and Cervical neuropathic pain M54.12 [place] [address] [address] Apr, Insomnia, unspecified type G47.00 ; Acqu ired hypothyroidism E03.9 ; Hypercholesterolemia E78.0 ; 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 ; Depression, unspecified depression type F32.9 ; 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 ; Gastroesophageal reflux disease, esophagitis presence not specified K21.9 ; Anxiety F41.9 ; Secondary hypertension I15.9 and Post- nasal drainage R09.82 [place] [address] [address] Apr, [place] [address] [address] March, [place] [address] [address] March, Unspecified hypothyroidism 244.9 and HTN (hypertension) 401.9 [place] [address] [address] March, [place] [address] [address] Dec, [place] [address] [address] Nov, [place] [address] [address] Sep, Generalized anxiety disorder F41.1 and M silvia depressive disorder, recurrent, in partial remission F33.41 [place] [address] [address] Jun, Unspecified hypothyroidism 244.9 ; Sciat ica 724.3 ; Major depressive disorder, recurrent episode, in partial or unspecified remission 296.35 ; Combined hyperlipidemia 272.2 ; HTN (hypertension) 401.9 ; Hidrosis 780.8 ; Cat allergies 477.8 and Environmental allergies V15.09 [facility] [place] [address] [address] Jun, Major depressive disorder, recurrent epi sode, in partial or unspecified remission 296.35 ; Insomnia, unspecified 780.52 and Generalized anxiety disorder 300.02 [facility] [place] [address] [address] May, [facility] [place] [address] [address] Apr, [place] [address] [address] Apr, Closed mallet fracture of distal phalanx of ring finger 816.02 [place] [address] [address] March, Depression, major, recurrent, moderate 2 96.32 ; Generalized anxiety disorder 300.02 and Borderline personality disorder 301.83 [place] [address] [address] Feb, [facility] [place] [address] [address] Feb, [facility] [place] [address] [address] Jan, [facility] [place] [address] [address] Jan, [facility] [place] [address] [address] Jan, [facility] [place] [address] [address] Jan, [facility] [place] [address] [address] Jan, [facility] [address] [id number] [place] [address] Jan, [facility] [address] [id number] [place] [address] Dec, [facility] [address] [id number] [place] [address] Dec, [facility] [address] [id number] [place] [address] Dec, [facility] [address] [id number] [place] [address] Dec, [facility] [address] [id number] [place] [address] Nov, [facility] [address] [id number] [place] [address] Nov, [facility] [id number] [place] [address] Nov, [facility] [address] [id number] [place] [address] Nov, [facility] [address] [id number] [place] [address] Nov, [facility] [address] [id number] [place] [address] Nov, [facility] [address] [id number] [place] [address] Oct, [facility] [address] [id number] [place] [address] Oct, [facility] [address] [id number] [place] [address] Oct, [facility] [address] [id number] [place] [address] Oct, [facility] [address] [id number] [place] [address] Oct, [facility] [address] [id number] [place] [address] Oct, [facility] [address] [facility] [id number] [place] [address] Sep, [facility] [address] [id number] [place] [address] Sep, [facility] [address] [id number] [place] [address] Sep, [facility] [address] [id number] [place] [address] Sep, [facility] [address] [id number] [place] [address] Aug, [facility] [address] [id number] [place] [address] Aug, [facility] [address] [id number] [place] [address] Apr, [facility] [address] [id number] [place] [address] Apr, [facility] [address] [id number] [place] [address] Apr, [facility] [address] [id number] [place] [address] Apr, [facility] [address] [id number] [place] [address] Apr, [facility] [address] [id number] [place] [address] Apr, [facility] [address] [id number] [place] [address] March, [facility] [address] [id number] [place] [address] March, [facility] [address] [id number] [place] [address] Dec, [facility] [address] [id number] [place] [address] Dec, [facility] [address] [id number] [place] [address] 08 Sep, 2012 [facility] [address] [id number] [place] [address] Sep, 2012 [facility] [address] [id number] [place] [address] Aug, 2012 [facility] [address] [id number] [place] [address] Aug, 2012 [facility] [address] [id number] [place] [address] Aug, 2012 [facility] [address] [id number] [place] [address] Aug, 2012 [facility] [address] [id number] [place] [address] Aug, 2012 [facility] [address] [id number] [place] [address] Aug, 2012 [facility] [address] [id number] [place] [address] Aug, 2012 [facility] [address] [id number] [place] [address] Aug, 2012 [facility] [address] [id number] [place] [address] Aug, [facility] [address] [id number] [place] [address] Aug, 2012 [facility] [address] [id number] [place] [address] Jul, 2012 [facility] [address] [id number] [place] [address] 19 Jul, 2012 [facility] [address] [id number] [place] [address] 05 Jul, 2012 [facility] [address] [id number] [place] [address] Jun, [facility] [address] [id number] [place] [address] May, [facility] [address] [facility] [id number] [place] [address] May, [facility] [address] [id number] [place] [address] May, [facility] [address] [id number] [place] [address] Apr, [facility] [address] [id number] [place] [address] March, [facility] [address] [facility] [id number] [place] [address] March, [facility] [address] [id number] [place] [address] Feb, [facility] [address] [id number] [place] [address] Feb, [facility] [address] [id number] [place] [address] Feb, [facility] [address] [id number] [place] [address] Feb, [facility] [address] [id number] [place] [address] Jan, [facility] [address] [id number] [place] [address] Jan, [facility] [address] [id number] [place] [address] Jan, [facility] [address] [id number] [place] [address] Jan, [facility] [address] [id number] [place] [address] Dec, [facility] [address] [id number] [place] [address] Dec, [facility] [address] [id number] [place] [address] Dec, [facility] [address] [id number] [place] [address] Nov, [facility] [address] [id number] [place] [address] Nov, [facility] [address] [id number] [place] [address] Nov, [facility] [address] [id number] [place] [address] Nov, [facility] [address] [id number] [place] [address] Oct, [facility] [address] [id number] [place] [address] Oct, [facility] [address] [id number] [place] [address] Oct, [facility] [address] [id number] [place] [address] Oct, [facility] [address] [id number] [place] [address] Sep, [facility] [address] [id number] [place] [address] Sep, [facility] [address] [id number] [place] [address] Sep, [facility] [address] [id number] [place] [address] Sep, [facility] [address] [id number] [place] [address] Aug, [facility] [address] [id number] [place] [address] Aug, [facility] [id number] [place] [address] Aug, [facility] [address] [id number] [place] [address] Jul, [facility] [address] [id number] [place] [address] Jun, [facility] [id number] [place] [address] May, [facility] [address] [id number] [place] [address] May, [facility] [address] [id number] [place] [address] May, [facility] [address] [id number] [place] [address] March, [facility] [address] [id number] [place] [address] March, [facility] [address] [id number] [place] [address] Feb, [facility] [address] [id number] [place] [address] Feb, [facility] [address] [id number] [place] [address] Feb, [facility] [address] [id number] [place] [address] Feb, [facility] [address] [id number] [place] [address] Feb, [facility] [address] [id number] [place] [address] Feb, [facility] [address] [id number] [place] [address] Feb, [facility] [address] [id number] [place] [address] Feb, [facility] [address] [id number] [place] [address] Dec, [facility] [address] [id number] [place] [address] Nov, [facility] [address] [id number] [place] [address] Nov, [facility] [address] [id number] [place] [address] 27 Nov, 2011 [facility] [address] [id number] [place] [address] Nov, [facility] [address] [id number] [place] [address] 13 Nov, 2011 [facility] [address] [id number] [place] [address] 12 Nov, 2011 [facility] [address] [id number] [place] [address] Oct, [facility] [address] [id number] [place] [address] Sep, [facility] [address] [id number] [place] [address] Sep, [facility] [address] [id number] [place] [address] Sep, [facility] [address] [id number] [place] [address] Sep, [facility] [address] [id number] [place] [address] Aug, [facility] [address] [id number] [place] [address] 24 Aug, 2011 [facility] [address] [id number] [place] [address] Aug, [facility] [address] [id number] [place] [address] Aug, [facility] [address] [id number] [place] [address] Aug, [facility] [address] [id number] [place] [address] 20 Aug, 2011 [facility] [address] [id number] [place] [address] 17 Aug, 2011 [facility] [address] [id number] [place] [address] 10 Aug, 2011 [facility] [address] [id number] [place] [address] Aug, [facility] [place] [address] [facility] [id number] [place] [address] Jul, [facility] [place] [address] [facility] [id number] [place] [address] May, IMMUNIZATIONS No Known Immunizations SOCIAL HISTORY Never Assessed REASON FOR VISIT PLAN OF CARE VITAL SIGNS Height 68 in 2014-04-14 Weight 216.5 lbs 2014-04-14 Temperature 99.2 degrees Fahrenheit 2014-04-14 Heart Rate 80 bpm 2014-04-14 Respiratory Rate 24 2014-04-14 Blood pressure systolic 114 mmHg 2014-04-14 Blood pressure diastolic 84 mmHg 2014-04-14 MEDICATIONS Unknown Medications RESULTS No Results PROCEDURES No Known procedures INSTRUCTIONS MEDICATIONS ADMINISTERED No Known Medications MEDICAL (GENERAL) HISTORY Type Description Date Medical [...] tonsillectomy age 15 Surgical History Colonoscopy 04/2017 Surgical History dentures 09/2017 Surgical History 2x tooth implant 03/2018
--- OUTSIDE RECORDS SUMMARY | 2020-02-07 09:15 | XMS REPORT ---
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 Active 764129924 Problem Hypercholesterolemia E78.0 Active 21687325 Problem Secondary hypertension I15.9 Active 37459155 Problem Acquired hypothyroidism E03.9 Active 965453444 Problem Anxiety F41.9 Active 99043140 Problem Tingling in extremities R20.2 Active 87487676 Problem Personality disorder in adult F60.9 Active 63224667 Problem Generalized anxiety disorder F41.1 A ctive 84282571 Problem Gastroesophageal reflux disease without esophagitis K21.9 Active 862113754 Problem Environmental allergies Z91.09 Active 511052735 Problem Hypothyroidism (acquired) E03.9 Acti ve 923175923 Problem Acute eczema L30.9 Active 8091352 02 Problem Depression, unspecified depression type F32.9 Active 37257354 Problem Major depressive disorder, recurrent, moderate F33 .1 Active 35558842 Problem Drug-induced erectile dysfunction N52.2 Active 328974601 Problem Acute left-sided low back pain with left-sided sciatica M54.42 Active 298659308 Problem Primary insomnia F51.01 Active 397 2004 ALLERGIES No Information ENCOUNTERS Encounter Location Date Diagnosis [facility] [id number] [place] [address] Sep, [facility] [id number] [place] [address] Aug, Other chcf (current) drug therapy Z 79.899 [place] [id number] [place] [address] Aug, [facility] [id number] [place] [address] Jul, Generalized anxiety disorder F41.1 ; Terell or depressive disorder, recurrent, moderate F33.1 ; Personality disorder in adult F60.9 and Other chcf (current) drug therapy Z79.899 [facility] [id number] [place] [address] Jul, [facility] [id number] [place] [address] Jul, [facility] [id number] [place] [address] Jun, Generalized anxiety disorder F41.1 [facility] [id number] [place] [address] Jun, [facility] [id number] [place] [address] Apr, [facility] [id number] [place] [address] March, [facility] [id number] [place] [address] Feb, Generalized anxiety disorder F41.1 ; Terell or depressive disorder, recurrent, moderate F33.1 and Personality disorder in adult F60.9 [facility] [id number] [place] [address] Jan, [facility] [id number] [place] [address] Dec, [facility] [id number] [place] [address] Dec, Acquired hypothyroidism E03.9 and Other chcf (current) drug therapy Z79.899 [facility] [id number] [place] [address] Dec, Acquired hypothyroidism E03.9 [facility] [address] [address] Nov, Generalized anxiety disorder F41.1 ; Terell or depressive disorder, recurrent, moderate F33.1 ; Personality disorder in adult F60.9 and Other termination clerk (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) drug therapy Z79.899 [facility] [address] [address] Nov, [facility] [address] [address] Oct, [facility] [address] [address] Sep, Generalized anxiety disorder F41.1 ; Terell or depressive disorder, recurrent, moderate F33.1 and Personality disorder in adult F60.9 [facility] [address] [address] Aug, [facility] [address] [address] Aug, [facility] [address] [address] Jul, Generalized anxiety disorder F41.1 [facility] [address] [address] 24 Jul, 2018 [facility] [address] [address] Jul, Acquired hypothyroidism E03.9 [facility] [address] [address] 10 Jul, 2018 Generalized anxiety disorder F41.1 [facility] [address] [address] 04 Jul, 2018 Generalized anxiety disorder F41.1 ; Terell or depressive disorder, recurrent, moderate F33.1 and Personality disorder in adult F60.9 [facility] [address] [address] Jun, Generalized anxiety disorder F41.1 ; Terell or depressive disorder, recurrent, moderate F33.1 ; Primary insomnia F51.01 and Personality disorder in adult F60.9 [facility] [address] [address] May, Acquired hypothyroidism E03.9 [facility] [address] [address] May, Hypothyroidism (acquired) E03.9 and Corky roesophageal reflux disease without esophagitis K21.9 [facility] [address] [address] Apr, [facility] [address] [facility] [id number] [address] [address] Apr, Skin infection L08.9 [place] [address] [address] Apr, Generalized anxiety disorder F41.1 ; Terell or depressive disorder, recurrent, moderate F33.1 ; Primary insomnia F51.01 and Personality disorder in adult F60.9 [place] [address] [address] March, Generalized anxiety disorder F41.1 ; Terell or depressive disorder, recurrent, moderate F33.1 and Personality disorder in adult F60.9 [place] [address] [address] Feb, [place] [address] [address] Dec, Generalized anxiety disorder F41.1 ; Terell or depressive disorder, recurrent, moderate F33.1 and Personality disorder in adult F60.9 [facility] [address] [facility] [id number] [address] [address] Dec, Acute left-sided low back pa in with left-sided sciatica M54.42 [facility] [address] [address] Nov, [facility] [address] [address] Oct, Generalized anxiety disorder F41.1 ; Terell or depressive disorder, recurrent, moderate F33.1 and Personality disorder in adult F60.9 [facility] [address] [address] Sep, Acquired hypothyroidism E03.9 ; Hypercho lesterolemia E78.0 ; Generalized anxiety disorder F41.1 and Drug-induced erectile dysfunction N52.2 [facility] [address] [address] Sep, [facility] [address] [address] 17 Sep, 2017 Acquired hypothyroidism E03.9 ; Hypercho lesterolemia E78.0 ; Generalized anxiety disorder F41.1 and Drug-induced erectile dysfunction N52.2 [facility] [address] [address] 07 Sep, 2017 Generalized anxiety disorder F41.1 ; Terell or depressive disorder, recurrent, moderate F33.1 and Personality disorder in adult F60.9 [facility] [address] [id number] Aug, Dental examination Z01.20 [facility] [address] [id number] Aug, Dental caries K02.9 [place] [address] [address] Aug, [facility] [address] [id number] Aug, Dental examination Z01.20 [facility] [address] [address] Jul, Major depressive disorder, recurrent, mo derate F33.[address] [address] 19 Jul, 2017 Generalized anxiety disorder F41.1 ; Terell or depressive disorder, recurrent, moderate F33.1 and Personality disorder in adult F60.9 [facility] [address] [address] Jul, Generalized anxiety disorder F41.1 ; Terell or depressive disorder, recurrent, moderate F33.1 and Personality disorder in adult F60.9 [place] [address] [id number] Jun, Generalized anxiety disorder F41.1 ; Terell or depressive disorder, recurrent, moderate F33.1 and Personality disorder in adult F60.9 [place] [address] [address] Apr, Generalized anxiety disorder F41.1 ; Terell or depressive disorder, recurrent, moderate F33.1 and Personality disorder in adult F60.9 [place] [address] March, Acquired hypothyroidism E03.[address] [address] March, Acquired hypothyroidism E03.9 and Left l ower quadrant pain R10.[address] [address] March, Hypercholesterolemia E78.0 ; Acquired hy pothyroidism E03.9 ; Insomnia, unspecified type G47.00 ; Secondary hypertension I15.9 ; Gastroesophageal reflux disease, esophagitis presence not specified K21.9 ; Tingling in extremities R20.2 ; Environmental allergies Z91.09 ; Depression, unspecified depression type F32.9 and Left lower quadrant pain R10.[address] [address] Feb, High risk sexual behavior Z72.[address] [address] Feb, Major depressive disorder, recurrent, mo derate F33.1 and Generalized anxiety disorder F41.[address] [address] Dec, Major depressive disorder, recurrent, mo derate F33.[address] [address] Dec, [place] [address] [address] 16 Dec, 2016 Acquired hypothyroidism E03.9 and High r isk sexual behavior Z72.51 [place] [address] [address] 07 Dec, 2016 Major depressive disorder, recurrent, mo derate F33.1 and Generalized anxiety disorder F41.[address] [address] Dec, Acquired hypothyroidism E03.9 ; Secondar y hypertension I15.9 and Acute eczema L30.9 [place] [address] Nov, Acquired hypothyroidism E03.9 ; Insomnia , unspecified type G47.00 ; Depression, unspecified depression type F32.9 ; 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 ; Hypercholesterolemia E78.0 ; Gastroesophageal reflux disease, esophagitis presence not specified K21.9 ; Anxiety F41.9 and Secondary hypertension I15.[address] [address] Oct, Major depressive disorder, recurrent, mo derate F33.1 and Generalized anxiety disorder F41.[address] [address] Aug, [address] [address] Aug, Insomnia, unspecified type G47.00 ; Acqu ired hypothyroidism E03.9 ; Hypercholesterolemia E78.0 and Gastroesophageal reflux disease, esophagitis presence not specified K21.9 [place] [address] Jul, [address] [address] Jul, Major depressive disorder, recurrent, in partial remission F33.41 and Generalized anxiety disorder F41.1 [address] [place] [address] 09 Jun, 2016 [place] [address] [address] 04 Jun, 2016 Cervical pain (neck) M54.2 and Cervical neuropathic pain M54.12 [place] [address] [address] 14 Apr, 2016 Insomnia, unspecified type G47.00 ; Acqu ired hypothyroidism E03.9 ; Hypercholesterolemia E78.0 ; 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 ; Depression, unspecified depression type F32.9 ; 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 ; Gastroesophageal reflux disease, esophagitis presence not specified K21.9 ; Anxiety F41.9 ; Secondary hypertension I15.9 and Post- nasal drainage R09.82 [place] [address] [address] Apr, [place] [address] [address] March, [place] [address] [address] March, Unspecified hypothyroidism 244.9 and HTN (hypertension) 401.9 [place] [address] [address] March, [place] [address] [address] Dec, [place] [address] [address] Nov, [place] [address] [address] Sep, Generalized anxiety disorder F41.1 and Liset vega depressive disorder, recurrent, in partial remission F33.41 [place] [address] [address] Jun, Unspecified hypothyroidism 244.9 ; Sciat ica 724.3 ; Major depressive disorder, recurrent episode, in partial or unspecified remission 296.35 ; Combined hyperlipidemia 272.2 ; HTN (hypertension) 401.9 ; Hidrosis 780.8 ; Cat allergies 477.8 and Environmental allergies V15.09 [facility] [address] [address] Jun, Major depressive disorder, recurrent epi sode, in partial or unspecified remission 296.35 ; Insomnia, unspecified 780.52 and Generalized anxiety disorder 300.02 [facility] [address] [address] May, [facility] [address] [address] Apr, [facility] [address] [address] Apr, Closed mallet fracture of distal phalanx of ring finger 816.02 [place] [address] [address] March, Depression, major, recurrent, moderate 2 96.32 ; Generalized anxiety disorder 300.02 and Borderline personality disorder 301.83 [facility] [address] [address] Feb, [facility] [address] [address] Feb, [facility] [address] [address] Jan, [facility] [address] [address] Jan, [facility] [address] [address] Jan, [facility] [address] [address] Jan, [facility] [address] [address] Jan, [facility] [address] [address] Jan, [facility] [place] [facility] [id number] [place] [address] Dec, [facility] [place] [facility] [id number] [place] [address] Dec, [facility] [place] [facility] [id number] [place] [address] Dec, [facility] [place] [facility] [id number] [place] [address] Dec, [facility] [place] [facility] [id number] [place] [address] Nov, [facility] [place] [facility] [id number] [place] [address] Nov, [facility] [place] [facility] [id number] [place] [address] Nov, [facility] [place] [facility] [id number] [place] [address] Nov, [facility] [place] [facility] [id number] [place] [address] Nov, [facility] [place] [facility] [id number] [place] [address] Nov, [facility] [place] [facility] [id number] [place] [address] Oct, [facility] [place] [facility] [id number] [place] [address] Oct, [facility] [place] [facility] [id number] [place] [address] Oct, [facility] [place] [facility] [id number] [place] [address] Oct, [facility] [place] [facility] [id number] [place] [address] Oct, [facility] [place] [facility] [id number] [place] [address] Oct, [facility] [place] [facility] [id number] [place] [address] Sep, [facility] [place] [facility] [address] [facility] [id number] [facility] [address] Sep, [facility] [place] [facility] [id number] [place] [address] Sep, [facility] [place] [facility] [id number] [place] [address] Sep, [facility] [place] [facility] [id number] [place] [address] Aug, [facility] [place] [facility] [id number] [place] [address] Aug, [facility] [place] [facility] [id number] [place] [address] Apr, [facility] [place] [facility] [id number] [place] [address] Apr, [facility] [place] [facility] [id number] [place] [address] Apr, [facility] [place] [facility] [id number] [place] [address] Apr, [facility] [place] [facility] [id number] [place] [address] Apr, [facility] [place] [facility] [id number] [place] [address] Apr, [facility] [place] [facility] [id number] [place] [address] March, [facility] [place] [facility] [id number] [place] [address] March, [facility] [place] [facility] [id number] [place] [address] Dec, [facility] [place] [facility] [id number] [place] [address] Dec, [facility] [place] [facility] [id number] [place] [address] Sep, [facility] [place] [facility] [id number] [place] [address] 08 Sep, 2012 [facility] [place] [facility] [id number] [place] [address] Aug, 2012 [facility] [place] [facility] [id number] [place] [address] Aug, 2012 [facility] [place] [facility] [id number] [place] [address] Aug, 2012 [facility] [place] [facility] [id number] [place] [address] Aug, 2012 [facility] [place] [facility] [id number] [place] [address] Aug, [facility] [place] [facility] [id number] [place] [address] Aug, 2012 [facility] [place] [facility] [id number] [place] [address] Aug, [facility] [place] [facility] [id number] [place] [address] Aug, [facility] [place] [facility] [id number] [place] [address] Aug, [facility] [place] [facility] [id number] [place] [address] Aug, [facility] [place] [facility] [id number] [place] [address] Jul, 2012 [facility] [place] [facility] [id number] [place] [address] 19 Jul, 2012 [facility] [place] [facility] [id number] [place] [address] 05 Jul, 2013 [facility] [place] [facility] [id number] [place] [address] Jun, [facility] [place] [facility] [id number] [place] [address] May, [facility] [place] [facility] [id number] [place] [address] May, [facility] [address] [facility] [id number] [place] [address] May, [facility] [place] [facility] [address] [facility] [id number] [facility] [address] Apr, [facility] [place] [facility] [id number] [place] [address] March, [facility] [place] [facility] [id number] [place] [address] March, [facility] [place] [facility] [address] [facility] [id number] [place] [address] Feb, [facility] [place] [facility] [id number] [place] [address] Feb, [facility] [place] [facility] [id number] [place] [address] Feb, [facility] [place] [facility] [id number] [place] [address] Feb, [facility] [place] [facility] [id number] [place] [address] Jan, [facility] [place] [facility] [id number] [place] [address] Jan, [facility] [place] [facility] [id number] [place] [address] Jan, [facility] [place] [facility] [id number] [place] [address] Jan, [facility] [place] [facility] [id number] [place] [address] Dec, [facility] [place] [facility] [address] [facility] [id number] [place] [address] Dec, [facility] [place] [facility] [id number] [place] [address] Dec, [facility] [place] [facility] [id number] [place] [address] Nov, [facility] [place] [facility] [id number] [place] [address] 08 Nov, 2012 [facility] [place] [facility] [id number] [place] [address] Nov, [facility] [place] [facility] [id number] [place] [address] Nov, [facility] [place] [facility] [id number] [place] [address] Oct, [facility] [place] [facility] [id number] [place] [address] Oct, [facility] [place] [facility] [id number] [place] [address] Oct, [facility] [place] [facility] [id number] [place] [address] Oct, [facility] [place] [facility] [id number] [place] [address] Sep, [facility] [place] [facility] [id number] [place] [address] Sep, [facility] [place] [facility] [id number] [place] [address] Sep, [facility] [place] [facility] [id number] [place] [address] Sep, [facility] [place] [facility] [id number] [place] [address] Aug, [facility] [place] [facility] [id number] [place] [address] Aug, [facility] [place] [facility] [id number] [place] [address] Aug, [facility] [place] [facility] [id number] [place] [address] Jul, [facility] [place] [facility] [id number] [place] [address] Jun, [facility] [place] [facility] [id number] [place] [address] May, [facility] [place] [facility] [address] [id number] [place] [address] May, [facility] [place] [facility] [id number] [place] [address] May, [facility] [place] [facility] [id number] [place] [address] March, [facility] [place] [facility] [id number] [place] [address] March, [facility] [place] [facility] [id number] [place] [address] Feb, [facility] [place] [facility] [id number] [place] [address] Feb, [facility] [place] [facility] [id number] [place] [address] Feb, [facility] [address] [id number] [place] [address] Feb, [facility] [address] [id number] [place] [address] Feb, [facility] [address] [id number] [place] [address] Feb, [facility] [address] [id number] [place] [address] Feb, [facility] [address] [id number] [place] [address] Feb, [facility] [address] [id number] [place] [address] Dec, [facility] [address] [id number] [place] [address] Nov, [facility] [address] [id number] [place] [address] Nov, [facility] [address] [id number] [place] [address] Nov, [facility] [address] [id number] [place] [address] 13 Nov, 2011 [facility] [address] [id number] [place] [address] 13 Nov, 2011 [facility] [address] [id number] [place] [address] 12 Nov, 2011 [facility] [address] [id number] [place] [address] Oct, [facility] [address] [id number] [place] [address] Sep, [facility] [address] [facility] [id number] [place] [address] Sep, [facility] [address] [id number] [place] [address] Sep, [facility] [address] [id number] [place] [address] Sep, [facility] [address] [id number] [place] [address] Aug, [facility] [address] [id number] [place] [address] 24 Aug, 2011 [facility] [address] [id number] [place] [address] Aug, [facility] [address] [id number] [place] [address] Aug, [facility] [address] [id number] [place] [address] Aug, [facility] [address] [id number] [place] [address] Aug, [facility] [address] [id number] [place] [address] 17 Aug, 2011 [facility] [address] [id number] [place] [address] 10 Aug, 2011 [facility] [address] [id number] [place] [address] 10 Aug, 2011 [facility] [address] [id number] [place] [address] Jul, [facility] [facility] [place] [address] [facility] [id number] [place] [address] May, IMMUNIZATIONS No Known Immunizations SOCIAL HISTORY Never Assessed REASON FOR VISIT PLAN OF CARE VITAL SIGNS Height 68 in 2014-05-11 Weight 218.8 lbs 2014-05-11 Temperature 98.6 degrees Fahrenheit 2014-05-11 Heart Rate 72 bpm 2014-05-11 Respiratory Rate 20 2014-05-11 Blood pressure systolic 114 mmHg 2014-05-11 Blood pressure diastolic 82 mmHg 2014-05-11 MEDICATIONS Unknown Medications RESULTS No Results PROCEDURES Procedure Date Ordered Result Body Site HIV-1/HIV-2, SINGLE ASSAY May 11, 2014 ASSAY THYROID STIM HORMONE May 11, 2014 LIPID PANEL May 11, 2014 COMPREHEN METABOLIC PANEL May 11, 2014 VENIPUNCT, ROUTINE* May 11, 2014 INSTRUCTIONS MEDICATIONS ADMINISTERED No Known Medications MEDICAL [...]
--- OUTSIDE RECORDS SUMMARY | 2020-02-07 09:15 | XMS REPORT ---
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 Active 176824741 Problem Hypercholesterolemia E78.0 Active 78220460 Problem Secondary hypertension I15.9 Active 64122978 Problem Acquired hypothyroidism E03.9 Active 649432534 Problem Anxiety F41.9 Active 23397796 Problem Tingling in extremities R20.2 Active 26455602 Problem Personality disorder in adult F60.9 Active 97831157 Problem Generalized anxiety disorder F41.1 A ctive 08513004 Problem Gastroesophageal reflux disease without esophagitis K21.9 Active 497541062 Problem Environmental allergies Z91.09 Active 001983995 Problem Hypothyroidism (acquired) E03.9 Acti ve 505196135 Problem Acute eczema L30.9 Active 0331084 02 Problem Depression, unspecified depression type F32.9 Active 54359310 Problem Major depressive disorder, recurrent, moderate F33 .1 Active 85093417 Problem Drug-induced erectile dysfunction N52.2 Active 548749561 Problem Acute left-sided low back pain with left-sided sciatica M54.42 Active 540419817 Problem Primary insomnia F51.01 Active 397 2004 ALLERGIES No Information ENCOUNTERS Encounter Location Date Diagnosis [facility] [address] [id number] [place] [address] Sep, [facility] [address] [id number] [place] [address] Aug, Other senior living (current) drug therapy Z 79.899 [place] [id number] [place] [address] Aug, [facility] [id number] [place] [address] Jul, Generalized anxiety disorder F41.1 ; Terell or depressive disorder, recurrent, moderate F33.1 ; Personality disorder in adult F60.9 and Other senior living (current) drug therapy Z79.899 [facility] [id number] [place] [address] Jul, [facility] [id number] [place] [address] Jul, [facility] [id number] [place] [address] Jun, Generalized anxiety disorder F41.1 [facility] [id number] [place] [address] Jun, [facility] [id number] [place] [address] Apr, [facility] [id number] [place] [address] March, [facility] [id number] [place] [address] Feb, Generalized anxiety disorder F41.1 ; Terell or depressive disorder, recurrent, moderate F33.1 and Personality disorder in adult F60.9 [facility] [id number] [place] [address] Jan, [facility] [id number] [place] [address] Dec, [facility] [id number] [place] [address] Dec, Acquired hypothyroidism E03.9 and Other senior living (current) drug therapy Z79.899 [facility] [id number] [place] [address] Dec, Acquired hypothyroidism E03.9 [facility] [address] [address] Nov, Generalized anxiety disorder F41.1 ; Terell or depressive disorder, recurrent, moderate F33.1 ; Personality disorder in adult F60.9 and 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 [facility] [address] [address] Nov, [facility] [address] [address] Oct, [facility] [address] [address] Sep, Generalized anxiety disorder F41.1 ; Terell or depressive disorder, recurrent, moderate F33.1 and Personality disorder in adult F60.9 [facility] [address] [address] Aug, [facility] [address] [address] Aug, [facility] [address] [address] Jul, Generalized anxiety disorder F41.1 [facility] [address] [address] 24 Jul, 2018 [facility] [address] [address] Jul, Acquired hypothyroidism E03.9 [facility] [address] [address] 10 Jul, 2018 Generalized anxiety disorder F41.1 [facility] [address] [address] 04 Jul, 2018 Generalized anxiety disorder F41.1 ; Terell or depressive disorder, recurrent, moderate F33.1 and Personality disorder in adult F60.9 [facility] [address] [address] Jun, Generalized anxiety disorder F41.1 ; Terell or depressive disorder, recurrent, moderate F33.1 ; Primary insomnia F51.01 and Personality disorder in adult F60.9 [facility] [address] [address] May, Acquired hypothyroidism E03.9 [facility] [address] [address] May, Hypothyroidism (acquired) E03.9 and Corky roesophageal reflux disease without esophagitis K21.9 [facility] [address] [address] Apr, [facility] [address] [facility] [id number] [place] [address] Apr, Skin infection L08.9 [facility] [address] [address] Apr, Generalized anxiety disorder F41.1 ; Terell or depressive disorder, recurrent, moderate F33.1 ; Primary insomnia F51.01 and Personality disorder in adult F60.9 [facility] [place] [address] [address] March, Generalized anxiety disorder F41.1 ; Terell or depressive disorder, recurrent, moderate F33.1 and Personality disorder in adult F60.9 [facility] [address] [address] Feb, [facility] [address] [address] Dec, Generalized anxiety disorder F41.1 ; Terell or depressive disorder, recurrent, moderate F33.1 and Personality disorder in adult F60.9 [facility] [address] [facility] [id number] [place] [address] Dec, Acute left-sided low back pa in with left-sided sciatica M54.42 [facility] [address] [address] Nov, [facility] [address] [address] Oct, Generalized anxiety disorder F41.1 ; Terell or depressive disorder, recurrent, moderate F33.1 and Personality disorder in adult F60.9 [facility] [address] [address] Sep, Acquired hypothyroidism E03.9 ; Hypercho lesterolemia E78.0 ; Generalized anxiety disorder F41.1 and Drug-induced erectile dysfunction N52.2 [facility] [address] [address] Sep, [facility] [address] [address] 17 Sep, 2017 Acquired hypothyroidism E03.9 ; Hypercho lesterolemia E78.0 ; Generalized anxiety disorder F41.1 and Drug-induced erectile dysfunction N52.2 [facility] [address] [address] 07 Sep, 2017 Generalized anxiety disorder F41.1 ; Terell or depressive disorder, recurrent, moderate F33.1 and Personality disorder in adult F60.9 [facility] [address] [id number] Aug, Dental examination Z01.20 [facility] [address] [id number] Aug, Dental caries K02.9 [facility] [address] [address] Aug, [facility] [address] [id number] Aug, Dental examination Z01.20 [facility] [address] [address] Jul, Major depressive disorder, recurrent, mo derate F33.[address] [address] 19 Jul, 2017 Generalized anxiety disorder F41.1 ; Terell or depressive disorder, recurrent, moderate F33.1 and Personality disorder in adult F60.9 [facility] [address] [address] Jul, Generalized anxiety disorder F41.1 ; Terell or depressive disorder, recurrent, moderate F33.1 and Personality disorder in adult F60.9 [place] [address] [id number] Jun, Generalized anxiety disorder F41.1 ; Terell or depressive disorder, recurrent, moderate F33.1 and Personality disorder in adult F60.9 [place] [address] [address] Apr, Generalized anxiety disorder F41.1 ; Terell or depressive disorder, recurrent, moderate F33.1 and Personality disorder in adult F60.9 [place] [address] March, Acquired hypothyroidism E03.[address] [address] March, Acquired hypothyroidism E03.9 and Left l ower quadrant pain R10.[address] [address] March, Hypercholesterolemia E78.0 ; Acquired hy pothyroidism E03.9 ; Insomnia, unspecified type G47.00 ; Secondary hypertension I15.9 ; Gastroesophageal reflux disease, esophagitis presence not specified K21.9 ; Tingling in extremities R20.2 ; Environmental allergies Z91.09 ; Depression, unspecified depression type F32.9 and Left lower quadrant pain R10.[address] [address] Feb, High risk sexual behavior Z72.[address] [address] Feb, Major depressive disorder, recurrent, mo derate F33.1 and Generalized anxiety disorder F41.[address] [address] Dec, Major depressive disorder, recurrent, mo derate F33.[address] [address] Dec, [facility] [address] [address] 16 Dec, 2016 Acquired hypothyroidism E03.9 and High r isk sexual behavior Z72.51 [place] [address] [address] 07 Dec, 2016 Major depressive disorder, recurrent, mo derate F33.1 and Generalized anxiety disorder F41.[address] [address] Dec, Acquired hypothyroidism E03.9 ; Secondar y hypertension I15.9 and Acute eczema L30.9 [place] [address] Nov, Acquired hypothyroidism E03.9 ; Insomnia , unspecified type G47.00 ; Depression, unspecified depression type F32.9 ; 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 ; Hypercholesterolemia E78.0 ; Gastroesophageal reflux disease, esophagitis presence not specified K21.9 ; Anxiety F41.9 and Secondary hypertension I15.[address] [address] Oct, Major depressive disorder, recurrent, mo derate F33.1 and Generalized anxiety disorder F41.[address] [address] Aug, [address] [address] Aug, Insomnia, unspecified type G47.00 ; Acqu ired hypothyroidism E03.9 ; Hypercholesterolemia E78.0 and Gastroesophageal reflux disease, esophagitis presence not specified K21.9 [place] [address] Jul, [address] [address] Jul, Major depressive disorder, recurrent, in partial remission F33.41 and Generalized anxiety disorder F41.1 [address] [place] [address] 09 Jun, 2016 [place] [address] [address] 04 Jun, 2016 Cervical pain (neck) M54.2 and Cervical neuropathic pain M54.12 [place] [address] [address] 14 Apr, 2016 Insomnia, unspecified type G47.00 ; Acqu ired hypothyroidism E03.9 ; Hypercholesterolemia E78.0 ; 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 ; Depression, unspecified depression type F32.9 ; 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 ; Gastroesophageal reflux disease, esophagitis presence not specified K21.9 ; Anxiety F41.9 ; Secondary hypertension I15.9 and Post- nasal drainage R09.82 [place] [address] [address] Apr, [place] [address] [address] March, [place] [address] [address] March, Unspecified hypothyroidism 244.9 and HTN (hypertension) 401.9 [place] [address] [address] March, [place] [address] [address] Dec, [place] [address] [address] Nov, [place] [address] [address] Sep, Generalized anxiety disorder F41.1 and Liset vega depressive disorder, recurrent, in partial remission F33.41 [place] [address] [address] Jun, Unspecified hypothyroidism 244.9 ; Sciat ica 724.3 ; Major depressive disorder, recurrent episode, in partial or unspecified remission 296.35 ; Combined hyperlipidemia 272.2 ; HTN (hypertension) 401.9 ; Hidrosis 780.8 ; Cat allergies 477.8 and Environmental allergies V15.09 [facility] [address] [address] Jun, Major depressive disorder, recurrent epi sode, in partial or unspecified remission 296.35 ; Insomnia, unspecified 780.52 and Generalized anxiety disorder 300.02 [facility] [address] [address] May, [facility] [address] [address] Apr, [facility] [address] [address] Apr, Closed mallet fracture of distal phalanx of ring finger 816.02 [place] [address] [address] March, Depression, major, recurrent, moderate 2 96.32 ; Generalized anxiety disorder 300.02 and Borderline personality disorder 301.83 [facility] [address] [address] Feb, [facility] [address] [address] Feb, [facility] [address] [address] Jan, [facility] [address] [address] Jan, [facility] [address] [address] Jan, [facility] [address] [address] Jan, [facility] [address] [address] Jan, [facility] [address] [address] Jan, [facility] [place] [facility] [address] [id number] [place] [address] Dec, [facility] [place] [facility] [address] [id number] [place] [address] Dec, [facility] [place] [facility] [address] [id number] [place] [address] Dec, [facility] [place] [facility] [address] [id number] [place] [address] Dec, [facility] [place] [facility] [address] [id number] [place] [address] Nov, [facility] [place] [facility] [address] [id number] [place] [address] Nov, [facility] [place] [facility] [address] [id number] [place] [address] Nov, [facility] [place] [facility] [id number] [place] [address] Nov, [facility] [place] [facility] [address] [id number] [place] [address] Nov, [facility] [place] [facility] [address] [id number] [place] [address] Nov, [facility] [place] [facility] [address] [id number] [place] [address] Oct, [facility] [place] [facility] [address] [id number] [place] [address] Oct, [facility] [place] [facility] [address] [id number] [place] [address] Oct, [facility] [place] [facility] [address] [id number] [place] [address] Oct, [facility] [place] [facility] [address] [id number] [place] [address] Oct, [facility] [place] [facility] [address] [id number] [place] [address] Oct, [facility] [place] [facility] [address] [id number] [place] [address] Sep, [facility] [place] [facility] [address] [facility] [id number] [facility] [place] [address] Sep, [facility] [place] [facility] [address] [id number] [place] [address] Sep, [facility] [place] [facility] [address] [id number] [place] [address] Sep, [facility] [place] [facility] [address] [id number] [place] [address] Aug, [facility] [place] [facility] [address] [id number] [place] [address] Aug, [facility] [place] [facility] [address] [id number] [place] [address] Apr, [facility] [place] [facility] [address] [id number] [place] [address] Apr, [facility] [place] [facility] [address] [id number] [place] [address] Apr, [facility] [place] [facility] [address] [id number] [place] [address] Apr, [facility] [place] [facility] [address] [id number] [place] [address] Apr, [facility] [place] [facility] [address] [id number] [place] [address] Apr, [facility] [place] [facility] [address] [id number] [place] [address] March, [facility] [place] [facility] [address] [id number] [place] [address] March, [facility] [place] [facility] [address] [id number] [place] [address] Dec, [facility] [place] [facility] [address] [id number] [place] [address] Dec, [facility] [place] [facility] [address] [id number] [place] [address] Sep, [facility] [place] [facility] [address] [id number] [place] [address] 08 Sep, 2012 [facility] [place] [facility] [address] [id number] [place] [address] Aug, 2012 [facility] [place] [facility] [address] [id number] [place] [address] Aug, 2012 [facility] [place] [facility] [address] [id number] [place] [address] Aug, 2012 [facility] [place] [facility] [address] [id number] [place] [address] Aug, 2012 [facility] [place] [facility] [address] [id number] [place] [address] Aug, [facility] [place] [facility] [address] [id number] [place] [address] Aug, 2012 [facility] [place] [facility] [address] [id number] [place] [address] Aug, [facility] [place] [facility] [address] [id number] [place] [address] Aug, [facility] [place] [facility] [address] [id number] [place] [address] Aug, [facility] [place] [facility] [address] [id number] [place] [address] Aug, [facility] [place] [facility] [address] [id number] [place] [address] Jul, 2012 [facility] [place] [facility] [address] [id number] [place] [address] 19 Jul, 2012 [facility] [place] [facility] [address] [id number] [place] [address] 05 Jul, 2013 [facility] [place] [facility] [address] [id number] [place] [address] Jun, [facility] [place] [facility] [address] [id number] [place] [address] May, [facility] [place] [facility] [address] [id number] [place] [address] May, [facility] [address] [facility] [id number] [place] [address] May, [facility] [place] [facility] [address] [facility] [id number] [facility] [place] [address] Apr, [facility] [place] [facility] [address] [id number] [place] [address] March, [facility] [place] [facility] [address] [id number] [place] [address] March, [facility] [place] [facility] [address] [facility] [id number] [place] [address] Feb, [facility] [place] [facility] [address] [id number] [place] [address] Feb, [facility] [place] [facility] [address] [id number] [place] [address] Feb, [facility] [place] [facility] [address] [id number] [place] [address] Feb, [facility] [place] [facility] [address] [id number] [place] [address] Jan, [facility] [place] [facility] [address] [id number] [place] [address] Jan, [facility] [place] [facility] [address] [id number] [place] [address] Jan, [facility] [place] [facility] [address] [id number] [place] [address] Jan, [facility] [place] [facility] [address] [id number] [place] [address] Dec, [facility] [place] [facility] [address] [facility] [id number] [place] [address] Dec, [facility] [place] [facility] [address] [id number] [place] [address] Dec, [facility] [place] [facility] [address] [id number] [place] [address] Nov, [facility] [place] [facility] [address] [id number] [place] [address] 08 Nov, 2012 [facility] [place] [facility] [address] [id number] [place] [address] Nov, [facility] [place] [facility] [address] [id number] [place] [address] Nov, [facility] [place] [facility] [address] [id number] [place] [address] Oct, [facility] [place] [facility] [address] [id number] [place] [address] Oct, [facility] [place] [facility] [address] [id number] [place] [address] Oct, [facility] [place] [facility] [address] [id number] [place] [address] Oct, [facility] [place] [facility] [address] [id number] [place] [address] Sep, [facility] [place] [facility] [address] [id number] [place] [address] Sep, [facility] [place] [facility] [address] [id number] [place] [address] Sep, [facility] [place] [facility] [address] [id number] [place] [address] Sep, [facility] [place] [facility] [address] [id number] [place] [address] Aug, [facility] [place] [facility] [address] [id number] [place] [address] Aug, [facility] [place] [facility] [address] [id number] [place] [address] Aug, [facility] [place] [facility] [id number] [place] [address] Jul, [facility] [address] [id number] [place] [address] Jun, [facility] [address] [id number] [place] [address] May, [facility] [id number] [place] [address] May, [facility] [address] [id number] [place] [address] May, [facility] [address] [id number] [place] [address] March, [facility] [address] [id number] [place] [address] March, [facility] [address] [id number] [place] [address] Feb, [facility] [address] [id number] [place] [address] Feb, [facility] [address] [id number] [place] [address] Feb, [facility] [address] [id number] [place] [address] Feb, [facility] [address] [id number] [place] [address] Feb, [facility] [address] [id number] [place] [address] Feb, [facility] [address] [id number] [place] [address] Feb, [facility] [address] [id number] [place] [address] Feb, [facility] [address] [id number] [place] [address] Dec, [facility] [address] [id number] [place] [address] Nov, [facility] [address] [id number] [place] [address] Nov, [facility] [address] [id number] [place] [address] Nov, [facility] [address] [id number] [place] [address] 13 Nov, 2011 [facility] [address] [id number] [place] [address] 13 Nov, 2011 [facility] [address] [id number] [place] [address] 12 Nov, 2011 [facility] [address] [id number] [place] [address] Oct, [facility] [address] [id number] [place] [address] Sep, [facility] [address] [facility] [id number] [place] [address] Sep, [facility] [address] [id number] [place] [address] Sep, [facility] [address] [id number] [place] [address] Sep, [facility] [address] [id number] [place] [address] Aug, [facility] [address] [id number] [place] [address] 24 Aug, 2011 [facility] [address] [id number] [place] [address] Aug, [facility] [address] [id number] [place] [address] Aug, [facility] [address] [id number] [place] [address] Aug, [facility] [address] [id number] [place] [address] Aug, [facility] [address] [id number] [place] [address] 17 Aug, 2011 [facility] [address] [id number] [place] [address] 10 Aug, 2011 [facility] [address] [id number] [place] [address] 10 Aug, 2011 [facility] [address] [id number] [place] [address] Jul, [facility] [address] [facility] [id number] [place] [address] May, IMMUNIZATIONS No Known Immunizations SOCIAL HISTORY Never Assessed REASON FOR VISIT PLAN OF CARE VITAL SIGNS MEDICATIONS Unknown [...]
--- OUTSIDE RECORDS SUMMARY | 2020-02-07 09:15 | XMS REPORT ---
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 Active 866104547 Problem Hypercholesterolemia E78.0 Active 55578724 Problem Secondary hypertension I15.9 Active 22416465 Problem Acquired hypothyroidism E03.9 Active 823554544 Problem Anxiety F41.9 Active 16399006 Problem Tingling in extremities R20.2 Active 46770663 Problem Personality disorder in adult F60.9 Active 87519647 Problem Generalized anxiety disorder F41.1 A ctive 38886562 Problem Gastroesophageal reflux disease without esophagitis K21.9 Active 855531855 Problem Environmental allergies Z91.09 Active 639733123 Problem Hypothyroidism (acquired) E03.9 Acti ve 394272830 Problem Acute eczema L30.9 Active 8289091 02 Problem Depression, unspecified depression type F32.9 Active 97834985 Problem Major depressive disorder, recurrent, moderate F33 .1 Active 35317075 Problem Drug-induced erectile dysfunction N52.2 Active 317672601 Problem Acute left-sided low back pain with left-sided sciatica M54.42 Active 265314814 Problem Primary insomnia F51.01 Active 397 2004 ALLERGIES No Information ENCOUNTERS Encounter Location Date Diagnosis [facility] [place] [address] [facility] [id number] [address] [place] [phone] Oct, [facility] [place] [address] [facility] [id number] [address] [place] [id number] Aug, Other custodial (current) dr ap reyes Z79.899 [facility] [place] [address] [id number] [address] [place] [phone] Aug, [facility] [place] [address] [id number] [address] [place] [phone] Jul, Generalized anxiety disorder F41.1 ; Major depressive disorder, recurrent, moderate F33.1 ; Personality disorder in adult F60.9 and Other custodial (current) drug therapy Z79.899 [facility] [place] [address] [id number] [address] [place] [id number] 16 Jul, 2019 [facility] [place] [address] [id number] [address] [place] [phone] Jul, [facility] [place] [address] [id number] [address] [place] [phone] Jun, Generalized anxiety disorder F41.1 [facility] [place] [address] [id number] [address] [place] [phone] Jun, [facility] [place] [address] [id number] [address] [place] [phone] Apr, [facility] [place] [address] [id number] [address] [place] [phone] March, [facility] [place] [address] [facility] [id number] [address] [place] [address] Feb, Generalized anxiety disorder F41.1 ; Major depressive disorder, recurrent, moderate F33.1 and Personality disorder in adult F60.9 [facility] [place] [address] [id number] [address] [place] [phone] Jan, [facility] [place] [address] [id number] [address] [place] [phone] Dec, [facility] [place] [address] [facility] [id number] [address] [place] [id number] Dec, Acquired hypothyroidism E03. 9 and Other custodial (current) drug therapy Z79.899 [facility] [place] [address] [id number] [address] [place] [id number] 15 Dec, 2018 Acquired hypothyroidism E03. 9 [facility] [place] [address] [id number] [address] [place] [phone] Nov, Generalized anxiety disorder F41.1 ; Major depressive disorder, recurrent, moderate F33.1 ; Personality disorder in adult F60.9 and Other long term care administrator (current) drug therapy Z79.899 [facility] [place] [address] [facility] [id number] [address] [place] [phone] Nov, [facility] [place] [address] [id number] [address] [place] [phone] Oct, [facility] [place] [address] [facility] [id number] [address] [place] [phone] Sep, Generalized anxiety disorder F41.1 ; Major depressive disorder, recurrent, moderate F33.1 and Personality disorder in adult F60.9 [facility] [place] [address] [facility] [id number] [address] [place] [phone] Aug, [facility] [place] [address] [facility] [id number] [address] [place] [phone] Aug, [facility] [place] [address] [facility] [id number] [address] [place] [address] Jul, Generalized anxiety disorder F41.1 [facility] [place] [address] [facility] [id number] [address] [place] [id number] 24 Jul, 2018 [facility] [place] [address] [facility] [id number] [address] [place] [phone] Jul, Acquired hypothyroidism E03. 9 [facility] [place] [address] [id number] [address] [place] [id number] 10 Jul, 2018 Generalized anxiety disorder F41.1 [facility] [place] [address] [facility] [id number] [address] [place] [phone] 04 Jul, 2018 Generalized anxiety disorder F41.1 ; Major depressive disorder, recurrent, moderate F33.1 and Personality disorder in adult F60.9 [facility] [place] [address] [facility] [id number] [address] [place] [phone] Jun, Generalized anxiety disorder F41.1 ; Major depressive disorder, recurrent, moderate F33.1 ; Primary insomnia F51.01 and Personality disorder in adult F60.9 [facility] [place] [address] [facility] [id number] [address] [place] [phone] May, Acquired hypothyroidism E03. 9 [facility] [place] [address] [facility] [id number] [address] [place] [phone] 27 May, 2018 Hypothyroidism (acquired) E0 3.9 and Gastroesophageal reflux disease without esophagitis K21.9 [place] [address] [facility] [id number] [address] [place] [phone] Apr, [facility] [address] [place] [id number] [address] [place] [phone] Apr, Skin infection L08.9 [place] [address] [facility] [id number] [address] [place] [phone] Apr, Generalized anxiety disorder F41.1 ; Major depressive disorder, recurrent, moderate F33.1 ; Primary insomnia F51.01 and Personality disorder in adult F60.9 [place] [address] [place] [id number] [address] [place] [phone] March, Generalized anxiety disorder F41.1 ; Major depressive disorder, recurrent, moderate F33.1 and Personality disorder in adult F60.9 [place] [address] [facility] [id number] [address] [place] [phone] Feb, [place] [address] [facility] [id number] [address] [place] [address] Dec, Generalized anxiety disorder F41.1 ; Major depressive disorder, recurrent, moderate F33.1 and Personality disorder in adult F60.9 [facility] [address] [facility] [id number] [address] [place] [id number] 06 Dec, 2017 Acute left-sided low back pa in with left-sided sciatica M54.42 [facility] [place] [address] [place] [id number] [address] [place] [phone] Nov, [facility] [place] [address] [id number] [address] [place] [phone] Oct, Generalized anxiety disorder F41.1 ; Major depressive disorder, recurrent, moderate F33.1 and Personality disorder in adult F60.9 [facility] [place] [address] [id number] [address] [place] [phone] Sep, Acquired hypothyroidism E03. 9 ; Hypercholesterolemia E78.0 ; Generalized anxiety disorder F41.1 and Drug-induced erectile dysfunction N52.2 [facility] [place] [address] [id number] [address] [place] [address] Sep, [facility] [place] [address] [id number] [address] [place] [phone] Sep, Acquired hypothyroidism E03. 9 ; Hypercholesterolemia E78.0 ; Generalized anxiety disorder F41.1 and Drug-induced erectile dysfunction N52.2 [facility] [place] [address] [id number] [address] [place] [id number] Sep, Generalized anxiety disorder F41.1 ; Major depressive disorder, recurrent, moderate F33.1 and Personality disorder in adult F60.9 [facility] [address] [id number] [address] [place] [address] [id number] Aug, Dental examination Z01.20 [facility] [address] [id number] [address] [place] [id number] Aug, Dental caries K02.9 [facility] [place] [address] [id number] [address] [place] [phone] Aug, [facility] [address] [id number] [address] [place] [id number] Aug, Dental examination Z01.20 [facility] [place] [address] [id number] [address] [place] [phone] Jul, Major depressive disorder, r ecurrent, moderate F33.1 [facility] [place] [address] [address] Jul, Generalized anxiety disorder F41.1 ; Major depressive disorder, recurrent, moderate F33.1 and Personality disorder in adult F60.9 [place] [address] [phone] 08 Jul, 2017 Generalized anxiety disorder F41.1 ; Major depressive disorder, recurrent, moderate F33.1 and Personality disorder in adult F60.9 [place] [address] [id number] Jun, Generalized anxiety disorder F41.1 ; Major depressive disorder, recurrent, moderate F33.1 and Personality disorder in adult F60.9 [place] [address] [address] Apr, Generalized anxiety disorder F41.1 ; Major depressive disorder, recurrent, moderate F33.1 and Personality disorder in adult F60.9 [place] [address] [address] March, Acquired hypothyroidism E03. 9 [place] [address] [address] March, Acquired hypothyroidism E03. 9 and Left lower quadrant pain R10.32 [place] [address] [address] March, Hypercholesterolemia E78.0 ; Acquired hypothyroidism E03.9 ; Insomnia, unspecified type G47.00 ; Secondary hypertension I15.9 ; Gastroesophageal reflux disease, esophagitis presence not specified K21.9 ; Tingling in extremities R20.2 ; Environmental allergies Z91.09 ; Depression, unspecified depression type F32.9 and Left lower quadrant pain R10.32 [place] [address] [address] Feb, High risk sexual behavior Z7 2.51 [place] [address] [address] Feb, Major depressive disorder, r ecurrent, moderate F33.1 and Generalized anxiety disorder F41.1 [place] [address] [address] Dec, Major depressive disorder, r ecurrent, moderate F33.1 [place] [address] [place] [id number] [place] [address] Dec, [place] [address] [place] [address] Dec, Acquired hypothyroidism E03. 9 and High risk sexual behavior Z72.51 [place] [address] [place] [address] Dec, Major depressive disorder, r ecurrent, moderate F33.1 and Generalized anxiety disorder F41.1 [place] [address] [address] Dec, Acquired hypothyroidism E03. 9 ; Secondary hypertension I15.9 and Acute eczema L30.9 [place] [address] [address] Nov, Acquired hypothyroidism E03. 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 ; Hypercholesterolemia E78.0 ; Gastroesophageal reflux disease, esophagitis presence not specified K21.9 ; Anxiety F41.9 and Secondary hypertension I15.9 [place] [address] [address] Oct, Major depressive disorder, r ecurrent, moderate F33.1 and Generalized anxiety disorder F41.1 [place] [address] [place] [id number] Aug, [place] [address] [place] [id number] Aug, Insomnia, unspecified type G 47.00 ; Acquired hypothyroidism E03.9 ; Hypercholesterolemia E78.0 and Gastroesophageal reflux disease, esophagitis presence not specified K21.9 [facility] [place] [address] [place] [id number] [address] [place] [id number] 15 Jul, 2016 [facility] [place] [address] [address] 06 Jul, 2016 Major depressive disorder, r ecurrent, in partial remission F33.41 and Generalized anxiety disorder F41.1 [place] [address] [address] Jun, [place] [address] [address] Jun, Cervical pain (neck) M54.2 a nd Cervical neuropathic pain M54.12 [place] [address] [address] 14 Apr, 2016 Insomnia, unspecified type G 47.00 ; Acquired hypothyroidism E03.9 ; Hypercholesterolemia E78.0 ; 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 ; Depression, unspecified depression type F32.9 ; 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 ; Gastroesophageal reflux disease, esophagitis presence not specified K21.9 ; Anxiety F41.9 ; Secondary hypertension I15.9 and Post- nasal drainage R09.82 [place] [address] [place] [id number] [address] [place] [address] Apr, [place] [address] [address] March, [place] [address] [address] March, Unspecified hypothyroidism 2 44.9 and HTN (hypertension) 401.9 [place] [address] [address] March, [place] [address] [address] Dec, [facility] [place] [address] [address] Nov, [facility] [place] [address] [place] [id number] [address] [place] [address] Sep, Generalized anxiety disorder F41.1 and Major depressive disorder, recurrent, in partial remission F33.41 [facility] [place] [address] [place] [id number] [address] [place] [address] Jun, Unspecified hypothyroidism 2 44.9 ; Sciatica 724.3 ; Major depressive disorder, recurrent episode, in partial or unspecified remission 296.35 ; Combined hyperlipidemia 272.2 ; HTN (hypertension) 401.9 ; Hidrosis 780.8 ; Cat allergies 477.8 and Environmental allergies V15.09 [facility] [place] [address] [address] Jun, Major depressive disorder, r ecurrent episode, in partial or unspecified remission 296.35 ; Insomnia, unspecified 780.52 and Generalized anxiety disorder 300.02 [facility] [place] [address] [address] May, [facility] [place] [address] [address] Apr, [place] [address] [address] Apr, Closed mallet fracture of di stal phalanx of ring finger 816.02 [facility] [place] [address] [place] [id number] [address] [place] [address] March, Depression, major, recurrent , moderate 296.32 ; Generalized anxiety disorder 300.02 and Borderline personality disorder 301.83 [facility] [place] [address] [place] [id number] [address] [place] [address] Feb, [facility] [place] [address] [address] Feb, [facility] [place] [address] [place] [id number] [address] [place] [address] Jan, [facility] [address] [id number] [address] [place] [address], [place] [address] Jan, [facility] [address] [id number] [address] [place] [address], [place] [address] Jan, [facility] [address] [id number] [address] [place] [address], [place] [address] Jan, [facility] [address] [id number] [address] [place] [address], [place] [address] Jan, [facility] [address] [id number] [address] [place] [address], [place] [address] Jan, [facility] [address] [id number] [address] [place] [address], [place] [address] Dec, [facility] [address] [id number] [address] [place] [address], [place] [address] Dec, [facility] [address] [id number] [address] [place] [address], [place] [address] Dec, [facility] [address] [id number] [address] [place] [address], [place] [address] Dec, [facility] [address] [id number] [address] [place] [address], [place] [address] Nov, [facility] [address] [id number] [address] [place] [address], [place] [address] Nov, [facility] [address] [id number] [address] [place] [address], [place] [address] Nov, [facility] [address] [id number] [address] [place] [address], [place] [address] Nov, [facility] [address] [id number] [address] [place] [address], [place] [address] Nov, [facility] [address] [id number] [address] [place] [address], [place] [address] Nov, [facility] [address] [id number] [address] [place] [address], [place] [address] Oct, [facility] [address] [id number] [address] [place] [address], [place] [address] Oct, [facility] [address] [id number] [address] [place] [address], [place] [address] Oct, [facility] [address] [id number] [address] [place] [address], [place] [address] Oct, [facility] [address] [id number] [address] [place] [address], [place] [address] Oct, [facility] [address] [id number] [address] [place] [address], [place] [address] Oct, [facility] [address] [id number] [address] [place] [address], [place] [address] Sep, [facility] [address] [id number] [address] [place] [address], [place] [address] Sep, [facility] [address] [id number] [address] [place] [address], [place] [address] Sep, [facility] [address] [id number] [address] [place] [address], [place] [address] Sep, [facility] [address] [id number] [address] [place] [address], [place] [address] Aug, [facility] [address] [id number] [address] [place] [address], [place] [address] Aug, [facility] [address] [id number] [address] [place] [address], [place] [address] Apr, [facility] [address] [id number] [address] [place] [address], [place] [address] Apr, [facility] [address] [id number] [address] [place] [address], [place] [address] Apr, [facility] [address] [id number] [address] [place] [address], [place] [address] Apr, [facility] [address] [id number] [address] [place] [address], [place] [address] 16 Apr, 2014 [facility] [address] [id number] [address] [place] [address], [place] [address] Apr, [facility] [address] [id number] [address] [place] [address], [place] [address] March, [facility] [address] [id number] [address] [place] [address], [place] [address] March, [facility] [address] [id number] [address] [place] [address], [place] [address] Dec, [facility] [address] [id number] [address] [place] [address], [place] [address] Dec, [facility] [address] [id number] [address] [place] [address], [place] [address] Sep, [facility] [address] [id number] [address] [place] [address], [place] [address] Sep, [facility] [address] [id number] [address] [place] [address], [place] [address] Aug, [facility] [address] [id number] [address] [place] [address], [place] [address] Aug, [facility] [address] [id number] [address] [place] [address], [place] [address] Aug, [facility] [address] [id number] [address] [place] [address], [place] [address] Aug, [facility] [address] [id number] [address] [place] [address], [place] [address] Aug, [facility] [address] [id number] [address] [place] [address], [place] [address] Aug, [facility] [address] [id number] [address] [place] [address], [place] [address] Aug, [facility] [address] [id number] [address] [place] [address], [place] [address] Aug, [facility] [address] [id number] [address] [place] [address], [place] [address] Aug, [facility] [address] [id number] [address] [place] [address], [place] [address] Aug, [facility] [address] [id number] [address] [place] [address], [place] [address] Jul, [facility] [address] [id number] [address] [place] [address], [place] [address] Jul, [facility] [address] [id number] [address] [place] [address], [place] [address] Jul, [facility] [address] [id number] [address] [place] [address], [place] [address] Jun, [facility] [address] [id number] [address] [place] [address], [place] [address] May, [facility] [address] [id number] [address] [place] [address], [place] [address] May, [facility] [address] [id number] [address] [place] [address], [place] [id number] May, [facility] [address] [id number] [address] [place] [address], [place] [address] Apr, [facility] [address] [id number] [address] [place] [address], [place] [address] March, [facility] [address] [id number] [address] [place] [address], [place] [address] March, [facility] [address] [id number] [address] [place] [address], [place] [address] Feb, [facility] [address] [id number] [address] [place] [address], [place] [address] Feb, [facility] [address] [id number] [address] [place] [address], [place] [address] Feb, [facility] [address] [id number] [address] [place] [address], [place] [address] Feb, [facility] [address] [id number] [address] [place] [address], [place] [address] Jan, [facility] [address] [id number] [address] [place] [address], [place] [address] Jan, [facility] [address] [id number] [address] [place] [address], [place] [address] Jan, [facility] [address] [id number] [address] [place] [address], [place] [address] Jan, [facility] [address] [id number] [address] [place] [address], [place] [address] Dec, [facility] [address] [id number] [address] [place] [address], [place] [address] Dec, [facility] [address] [id number] [address] [place] [address], [place] [address] Dec, [facility] [address] [id number] [address] [place] [address], [place] [address] Nov, [facility] [address] [id number] [address] [place] [address], [place] [address] Nov, [facility] [address] [id number] [address] [place] [address], [place] [address] Nov, [facility] [address] [id number] [address] [place] [address], [place] [address] Nov, [facility] [address] [id number] [address] [place] [address], [place] [address] Oct, [facility] [address] [id number] [address] [place] [address], [place] [address] Oct, [facility] [address] [id number] [address] [place] [address], [place] [address] Oct, [facility] [address] [id number] [address] [place] [address], [place] [address] Oct, [facility] [address] [id number] [address] [place] [address], [place] [address] Sep, [facility] [address] [id number] [address] [place] [address], [place] [address] Sep, [facility] [address] [id number] [address] [place] [address], [place] [address] Sep, [facility] [address] [id number] [address] [place] [address], [place] [address] Sep, [facility] [address] [id number] [address] [place] [address], [place] [address] Aug, [facility] [address] [id number] [address] [place] [address], [place] [address] Aug, [facility] [address] [id number] [address] [place] [address], [place] [address] Aug, [facility] [address] [id number] [address] [place] [address], [place] [address] Jul, [facility] [address] [id number] [address] [place] [address], [place] [address] Jun, [facility] [address] [id number] [address] [place] [address], [place] [address] May, [facility] [address] [id number] [address] [place] [address], [place] [address] May, [facility] [address] [id number] [address] [place] [address], [place] [address] May, [facility] [address] [id number] [address] [place] [address], [place] [address] March, [facility] [address] [id number] [address] [place] [address], [place] [address] March, [facility] [address] [id number] [address] [place] [address], [place] [address] Feb, [facility] [address] [id number] [address] [place] [address], [place] [address] 30 Feb, 2012 [facility] [address] [id number] [address] [place] [address], [place] [address] 24 Feb, 2012 [facility] [address] [id number] [address] [place] [address], [place] [address] 17 Feb, 2012 [facility] [address] [id number] [address] [place] [address], [place] [address] Feb, [facility] [address] [id number] [address] [place] [address], [place] [address] Feb, [facility] [address] [id number] [address] [place] [address], [place] [address] Feb, [facility] [address] [id number] [address] [place] [address], [place] [address] Feb, [facility] [address] [id number] [address] [place] [address], [place] [address] Dec, [facility] [address] [id number] [address] [place] [address], [place] [address] Nov, [facility] [address] [id number] [address] [place] [address], [place] [address] Nov, [facility] [address] [id number] [address] [place] [address], [place] [address] Nov, [facility] [address] [id number] [address] [place] [address], [place] [address] Nov, [facility] [address] [id number] [address] [place] [address], [place] [address] Nov, [facility] [address] [id number] [address] [place] [address], [place] [address] Nov, [facility] [address] [id number] [address] [place] [address], [place] [address] 14 Oct, 2011 [facility] [address] [id number] [address] [place] [address], [place] [address] Sep, [facility] [address] [id number] [address] [place] [id number] Sep, [facility] [place] [address] [id number] [address] [place] [id number] Sep, [facility] [place] [address] [id number] [address] [place] [id number] Sep, [facility] [place] [address] [id number] [address] [place] [id number] Aug, [facility] [place] [address] [id number] [address] [place] [id number] Aug, [facility] [place] [address] [id number] [address] [place] [id number] Aug, [facility] [place] [address] [id number] [address] [place] [id number] Aug, [facility] [place] [address] [id number] [address] [place] [id number] Aug, [facility] [place] [address] [id number] [address] [place] [id number] Aug, [facility] [place] [address] [id number] [address] [place] [id number] Aug, [facility] [place] [address] [id number] [address] [place] [id number] Aug, [facility] [place] [address] [id number] [address] [place] [id number] Aug, [facility] [place] [address] [id number] [address] [place] [id number] Jul, [facility] [place] [address] [id number] [address] [place] [id number] May, IMMUNIZATIONS No Known Immunizations SOCIAL HISTORY [...]
--- OUTSIDE RECORDS SUMMARY | 2020-02-07 09:16 | XMS REPORT ---
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 Active 471266119 Problem Hypercholesterolemia E78.0 Active 80189620 Problem Secondary hypertension I15.9 Active 88457014 Problem Acquired hypothyroidism E03.9 Active 250862203 Problem Anxiety F41.9 Active 45251207 Problem Tingling in extremities R20.2 Active 26521405 Problem Personality disorder in adult F60.9 Active 42356337 Problem Generalized anxiety disorder F41.1 A ctive 99923379 Problem Gastroesophageal reflux disease without esophagitis K21.9 Active 762209194 Problem Environmental allergies Z91.09 Active 541006906 Problem Hypothyroidism (acquired) E03.9 Acti ve 795955631 Problem Acute eczema L30.9 Active 1613042 02 Problem Depression, unspecified depression type F32.9 Active 19440322 Problem Major depressive disorder, recurrent, moderate F33 .1 Active 31661614 Problem Drug-induced erectile dysfunction N52.2 Active 341454395 Problem Acute left-sided low back pain with left-sided sciatica M54.42 Active 153077419 Problem Primary insomnia F51.01 Active 397 2004 ALLERGIES No Information ENCOUNTERS Encounter Location Date Diagnosis [facility] [address] [facility] [id number] [address] [place] [id number] Oct, [facility] [address] [facility] [id number] [address] [place] [id number] Jul, Generalized anxiety disorder F41.1 ; Major depressive disorder, recurrent, moderate F33.1 ; Personality disorder in adult F60.9 and Other 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.899 [facility] [address] [id number] [address] [place] [id number] 16 Jul, 2019 [facility] [address] [facility] [id number] [address] [place] [id number] Jul, [facility] [address] [id number] [address] [place] [id number] Jun, Generalized anxiety disorder F41.1 [facility] [address] [facility] [id number] [address] [place] [phone] Jun, [facility] [address] [facility] [id number] [address] [place] [id number] Apr, [facility] [address] [facility] [id number] [address] [place] [id number] March, [facility] [address] [facility] [id number] [address] [place] [id number] Feb, Generalized anxiety disorder F41.1 ; Major depressive disorder, recurrent, moderate F33.1 and Personality disorder in adult F60.9 [facility] [address] [facility] [id number] [address] [place] [phone] Jan, [facility] [address] [facility] [id number] [address] [place] [id number] Dec, [facility] [address] [facility] [id number] [address] [place] [address] Dec, Acquired hypothyroidism E03. 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 9 [facility] [address] [facility] [id number] [address] [place] [id number] Nov, Generalized anxiety disorder F41.1 ; Major depressive disorder, recurrent, moderate F33.1 ; Personality disorder in adult F60.9 and Other nursing home (current) drug therapy Z79.899 [facility] [address] [id number] [address] [place] [id number] Nov, [facility] [address] [facility] [id number] [address] [place] [id number] Oct, [facility] [address] [facility] [id number] [address] [place] [id number] Sep, Generalized anxiety disorder F41.1 ; Major depressive disorder, recurrent, moderate F33.1 and Personality disorder in adult F60.9 [facility] [address] [id number] [address] [place] [id number] Aug, [facility] [address] [id number] [address] [place] [phone] Aug, [facility] [address] [facility] [id number] [address] [place] [id number] Jul, Generalized anxiety disorder F41.1 [facility] [address] [facility] [id number] [address] [place] [id number] 24 Jul, 2018 [facility] [address] [facility] [id number] [address] [place] [id number] Jul, Acquired hypothyroidism E03. 9 [facility] [address] [facility] [id number] [address] [place] [id number] Jul, Generalized anxiety disorder F41.1 [facility] [address] [facility] [id number] [address] [place] [id number] 04 Jul, 2018 Generalized anxiety disorder F41.1 ; Major depressive disorder, recurrent, moderate F33.1 and Personality disorder in adult F60.9 [facility] [address] [id number] [address] [place] [phone] Jun, Generalized anxiety disorder F41.1 ; Major depressive disorder, recurrent, moderate F33.1 ; Primary insomnia F51.01 and Personality disorder in adult F60.9 [facility] [address] [facility] [id number] [address] [place] [phone] May, Acquired hypothyroidism E03. 9 [facility] [address] [facility] [id number] [address] [place] [id number] 27 May, 2018 Hypothyroidism (acquired) E0 3.9 and Gastroesophageal reflux disease without esophagitis K21.9 [facility] [address] [facility] [id number] [address] [place] [phone] Apr, [facility] [address] [facility] [id number] [address] [place] [phone] Apr, Skin infection L08.9 [facility] [address] [facility] [id number] [address] [place] [phone] Apr, Generalized anxiety disorder F41.1 ; Major depressive disorder, recurrent, moderate F33.1 ; Primary insomnia F51.01 and Personality disorder in adult F60.9 [facility] [address] [place] [id number] [place] [address] March, Generalized anxiety disorder F41.1 ; Major depressive disorder, recurrent, moderate F33.1 and Personality disorder in adult F60.9 [facility] [address] [place] [id number] [address] [place] [id number] Feb, [facility] [address] [facility] [id number] [address] [place] [phone] Dec, Generalized anxiety disorder F41.1 ; Major depressive disorder, recurrent, moderate F33.1 and Personality disorder in adult F60.9 [facility] [address] [facility] [id number] [address] [place] [id number] Dec, Acute left-sided low back pa in with left-sided sciatica M54.42 [facility] [address] [facility] [id number] [address] [place] [phone] Nov, [facility] [address] [place] [id number] [address] [place] [id number] Oct, Generalized anxiety disorder F41.1 ; Major depressive disorder, recurrent, moderate F33.1 and Personality disorder in adult F60.9 [facility] [address] [id number] [address] [place] [id number] Sep, Acquired hypothyroidism E03. 9 ; Hypercholesterolemia E78.0 ; Generalized anxiety disorder F41.1 and Drug-induced erectile dysfunction N52.2 [facility] [address] [id number] [address] [place] [phone] Sep, [facility] [address] [id number] [address] [place] [id number] Sep, Acquired hypothyroidism E03. 9 ; Hypercholesterolemia E78.0 ; Generalized anxiety disorder F41.1 and Drug-induced erectile dysfunction N52.2 [facility] [address] [id number] [address] [place] [id number] 07 Sep, 2017 Generalized anxiety disorder F41.1 ; Major depressive disorder, recurrent, moderate F33.1 and Personality disorder in adult F60.9 [facility] [address] [id number] [address] [place] [id number] Aug, Dental examination Z01.20 [facility] [address] [id number] [address] [place] [id number] Aug, Dental caries K02.9 [facility] [address] [id number] [address] [place] [id number] Aug, [facility] [address] [id number] [address] [place] [id number] Aug, Dental examination Z01.20 [facility] [address] [id number] [address] [place] [id number] Jul, Major depressive disorder, r ecurrent, moderate F33.1 [facility] [address] [id number] [address] [place] [id number] 19 Jul, 2017 Generalized anxiety disorder F41.1 ; Major depressive disorder, recurrent, moderate F33.1 and Personality disorder in adult F60.9 [place] [address] [place] [id number] [address] [place] [id number] 08 Jul, 2017 Generalized anxiety disorder F41.1 ; Major depressive disorder, recurrent, moderate F33.1 and Personality disorder in adult F60.9 [place] [address] [place] [id number] [address] [place] [id number] Jun, Generalized anxiety disorder F41.1 ; Major depressive disorder, recurrent, moderate F33.1 and Personality disorder in adult F60.9 [place] [address] [address] Apr, Generalized anxiety disorder F41.1 ; Major depressive disorder, recurrent, moderate F33.1 and Personality disorder in adult F60.9 [place] [address] [address] March, Acquired hypothyroidism E03. [address] [address] March, Acquired hypothyroidism E03. 9 and Left lower quadrant pain R10.[address] [address] March, Hypercholesterolemia E78.0 ; Acquired hypothyroidism E03.9 ; Insomnia, unspecified type G47.00 ; Secondary hypertension I15.9 ; Gastroesophageal reflux disease, esophagitis presence not specified K21.9 ; Tingling in extremities R20.2 ; Environmental allergies Z91.09 ; Depression, unspecified depression type F32.9 and Left lower quadrant pain R10.32 [place] [address] [place] [id number] [address] [place] [address] Feb, High risk sexual behavior Z7 2.[address] [address] Feb, Major depressive disorder, r ecurrent, moderate F33.1 and Generalized anxiety disorder F41.1 [place] [id number] [place] [phone] Dec, Major depressive disorder, r ecurrent, moderate F33.1 [place] [address] [place] [id number] [address] [place] [phone] Dec, [place] [address] [address] 16 Dec, 2016 Acquired hypothyroidism E03. 9 and High risk sexual behavior Z72.51 [place] [address] [address] Dec, Major depressive disorder, r ecurrent, moderate F33.1 and Generalized anxiety disorder F41.[address] [address] Dec, Acquired hypothyroidism E03. 9 ; Secondary hypertension I15.9 and Acute eczema L30.[address] [address] Nov, Acquired hypothyroidism E03. 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 ; Hypercholesterolemia E78.0 ; Gastroesophageal reflux disease, esophagitis presence not specified K21.9 ; Anxiety F41.9 and Secondary hypertension I15.9 [place] [address] [address] Oct, Major depressive disorder, r ecurrent, moderate F33.1 and Generalized anxiety disorder F41.1 [place] [address] [place] [id number] [address] [place] [id number] Aug, [place] [address] [address] Aug, Insomnia, unspecified type G 47.00 ; Acquired hypothyroidism E03.9 ; Hypercholesterolemia E78.0 and Gastroesophageal reflux disease, esophagitis presence not specified K21.9 [place] [address] [address] Jul, [place] [address] [address] Jul, Major depressive disorder, r ecurrent, in partial remission F33.41 and Generalized anxiety disorder F41.1 [place] [address] [address] Jun, [place] [address] [address] Jun, Cervical pain (neck) M54.2 a nd Cervical neuropathic pain M54.12 [place] [address] [address] 14 Apr, 2016 Insomnia, unspecified type G 47.00 ; Acquired hypothyroidism E03.9 ; Hypercholesterolemia E78.0 ; 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 ; Depression, unspecified depression type F32.9 ; 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 ; Gastroesophageal reflux disease, esophagitis presence not specified K21.9 ; Anxiety F41.9 ; Secondary hypertension I15.9 and Post- nasal drainage R09.82 [place] [address] [address] Apr, [place] [address] [address] March, [place] [address] [address] March, Unspecified hypothyroidism 2 44.9 and HTN (hypertension) 401.9 [place] [address] [address] March, [place] [address] [address] Dec, [place] [address] [address] Nov, [place] [address] [address] Sep, Generalized anxiety disorder F41.1 and Major depressive disorder, recurrent, in partial remission F33.41 [place] [address] [address] Jun, Unspecified hypothyroidism 2 44.9 ; Sciatica 724.3 ; Major depressive disorder, recurrent episode, in partial or unspecified remission 296.35 ; Combined hyperlipidemia 272.2 ; HTN (hypertension) 401.9 ; Hidrosis 780.8 ; Cat allergies 477.8 and Environmental allergies V15.09 [place] [address] [address] Jun, Major depressive disorder, r ecurrent episode, in partial or unspecified remission 296.35 ; Insomnia, unspecified 780.52 and Generalized anxiety disorder 300.[address] [address] May, [address] [address] Apr, [address] [address] Apr, Closed mallet fracture of di stal phalanx of ring finger 816.[address] [address] March, Depression, major, recurrent , moderate 296.32 ; Generalized anxiety disorder 300.02 and Borderline personality disorder 301.83 [place] [address] [address] Feb, [place] [address] [address] Feb, [address] [address] Jan, [place] [address] [address] Jan, [address] [address] Jan, [facility] [address] [id number] [address] [place] [address], [place] [address] Jan, [facility] [address] [id number] [address] [place] [address], [place] [address] Jan, [facility] [address] [id number] [address] [place] [address], [place] [address] Jan, [facility] [address] [id number] [address] [place] [address], [place] [address] Dec, [facility] [address] [id number] [address] [place] [address], [place] [address] Dec, [facility] [address] [id number] [address] [place] [address], [place] [address] Dec, [facility] [address] [id number] [address] [place] [address], [place] [address] Dec, [facility] [address] [id number] [address] [place] [address], [place] [address] Nov, [facility] [address] [id number] [address] [place] [address], [place] [address] Nov, [facility] [address] [id number] [address] [place] [address], [place] [address] Nov, [facility] [address] [id number] [address] [place] [address], [place] [address] Nov, [facility] [address] [id number] [address] [place] [address], [place] [address] Nov, [facility] [address] [id number] [address] [place] [address], [place] [address] Nov, [facility] [address] [id number] [address] [place] [address], [place] [address] Oct, [facility] [address] [id number] [address] [place] [address], [place] [address] Oct, [facility] [address] [id number] [address] [place] [address], [place] [address] Oct, [facility] [address] [id number] [address] [place] [address], [place] [address] Oct, [facility] [address] [id number] [address] [place] [address], [place] [address] Oct, [facility] [address] [id number] [address] [place] [address], [place] [address] Oct, [facility] [address] [id number] [address] [place] [address], [place] [address] Sep, [facility] [address] [id number] [address] [place] [address], [place] [address] Sep, [facility] [address] [id number] [address] [place] [address], [place] [address] Sep, [facility] [address] [id number] [address] [place] [address], [place] [address] Sep, [facility] [address] [id number] [address] [place] [address], [place] [address] Aug, [facility] [address] [id number] [address] [place] [address], [place] [address] Aug, [facility] [address] [id number] [address] [place] [address], [place] [address] Apr, [facility] [address] [id number] [address] [place] [address], [place] [address] Apr, [facility] [address] [id number] [address] [place] [address], [place] [address] Apr, [facility] [address] [id number] [address] [place] [address], [place] [address] Apr, [facility] [address] [id number] [address] [place] [address], [place] [address] Apr, [facility] [address] [id number] [address] [place] [address], [place] [address] Apr, [facility] [address] [id number] [address] [place] [address], [place] [address] March, [facility] [address] [id number] [address] [place] [address], [place] [address] March, [facility] [address] [id number] [address] [place] [address], [place] [address] Dec, [facility] [address] [id number] [address] [place] [address], [place] [address] Dec, [facility] [address] [id number] [address] [place] [address], [place] [address] Sep, [facility] [address] [id number] [address] [place] [address], [place] [address] Sep, [facility] [address] [id number] [address] [place] [address], [place] [address] Aug, [facility] [address] [id number] [address] [place] [id number] Aug, [facility] [address] [id number] [address] [place] [id number] Aug, [facility] [address] [id number] [address] [place] [id number] Aug, [facility] [address] [id number] [address] [place] [id number] Aug, [facility] [address] [id number] [address] [place] [address] Aug, [facility] [address] [id number] [address] [place] [id number] Aug, [facility] [address] [id number] [address] [place] [id number] Aug, [facility] [address] [id number] [address] [place] [id number] Aug, [facility] [address] [id number] [address] [place] [address] Aug, [facility] [address] [id number] [address] [place] [address], [place] [address] 27 Jul, 2013 [facility] [address] [id number] [address] [place] [address], [place] [address] Jul, [facility] [address] [id number] [address] [place] [address], [place] [id number] 05 Jul, 2013 [facility] [address] [id number] [address] [place] [address], [place] [address] Jun, [facility] [address] [id number] [address] [place] [address], [place] [address] May, [facility] [address] [id number] [address] [place] [address], [place] [address] May, [facility] [address] [id number] [address] [place] [address], [place] [address] May, [facility] [address] [id number] [address] [place] [address], [place] [address] Apr, [facility] [address] [id number] [address] [place] [address], [place] [address] March, [facility] [address] [id number] [address] [place] [address], [place] [address] March, [facility] [address] [id number] [address] [place] [address], [place] [id number] 30 Feb, 2013 [facility] [address] [id number] [address] [place] [address], [place] [id number] 18 Feb, 2013 [facility] [address] [id number] [address] [place] [address], [place] [id number] Feb, [facility] [address] [id number] [address] [place] [address], [place] [id number] Feb, [facility] [address] [id number] [address] [place] [address], [place] [id number] Jan, [facility] [address] [id number] [address] [place] [address], [place] [id number] Jan, [facility] [address] [id number] [address] [place] [address], [place] [id number] Jan, [facility] [address] [id number] [address] [place] [address], [place] [id number] Jan, [facility] [address] [id number] [address] [place] [address], [place] [id number] Dec, [facility] [address] [id number] [address] [place] [address], [place] [id number] Dec, [facility] [address] [id number] [address] [place] [address], [place] [id number] Dec, [facility] [address] [id number] [address] [place] [address], [place] [id number] Nov, [facility] [address] [id number] [address] [place] [address], [place] [id number] Nov, [facility] [address] [id number] [address] [place] [address], [place] [id number] Nov, [facility] [address] [id number] [address] [place] [address], [place] [id number] Nov, [facility] [address] [id number] [address] [place] [address], [place] [id number] Oct, [facility] [address] [id number] [address] [place] [address], [place] [id number] Oct, [facility] [address] [id number] [address] [place] [address], [place] [id number] Oct, [facility] [address] [id number] [address] [place] [address], [place] [id number] Oct, [facility] [address] [id number] [address] [place] [address], [place] [id number] 16 Sep, 2012 [facility] [address] [id number] [address] [place] [address], [place] [id number] Sep, [facility] [address] [id number] [address] [place] [address], [place] [address] Sep, [facility] [address] [id number] [address] [place] [address], [place] [id number] Sep, [facility] [address] [id number] [address] [place] [address], [place] [address] Aug, [facility] [address] [id number] [address] [place] [address], [place] [address] Aug, [facility] [address] [id number] [address] [place] [address], [place] [id number] Aug, [facility] [address] [id number] [address] [place] [address], [place] [id number] Jul, [facility] [address] [id number] [address] [place] [address], [place] [address] Jun, [facility] [address] [id number] [address] [place] [address], [place] [id number] May, [facility] [address] [id number] [address] [place] [address], [place] [id number] May, [facility] [address] [id number] [address] [place] [address], [place] [id number] May, [facility] [address] [id number] [address] [place] [address], [place] [id number] March, [facility] [address] [id number] [address] [place] [address], [place] [id number] March, [facility] [address] [id number] [address] [place] [address], [place] [id number] Feb, [facility] [address] [id number] [address] [place] [address], [place] [id number] Feb, [facility] [address] [id number] [address] [place] [address], [place] [id number] Feb, [facility] [address] [id number] [address] [place] [address], [place] [id number] 17 Feb, 2012 [facility] [place] [address] [id number] [address] [place] [address], [place] [id number] 16 Feb, 2012 [facility] [place] [address] [id number] [address] [place] [address], [place] [id number] 16 Feb, 2012 [facility] [place] [address] [id number] [address] [place] [address], [place] [id number] 09 Feb, 2012 [facility] [place] [address] [id number] [address] [place] [address], [place] [id number] 06 Feb, 2012 [facility] [place] [address] [id number] [address] [place] [address], [place] [address] Dec, [facility] [place] [address] [id number] [address] [place] [address], [place] [id number] Nov, [facility] [place] [address] [id number] [address] [place] [address], [place] [id number] 2011 [facility] [address] [id number] [address] [place] [address], [place] [address] Nov, [facility] [place] [address] [id number] [address] [place] [address], [place] [address] Nov, [facility] [address] [id number] [address] [place] [address], [place] [id number] 13 Nov, 2011 [facility] [place] [address] [id number] [address] [place] [address], [place] [address] Nov, [facility] [address] [id number] [address] [place] [address], [place] [id number] 14 Oct, 2011 [facility] [address] [id number] [address] [place] [address], [place] [id number] Sep, [facility] [address] [id number] [address] [place] [address], [place] [id number] 23 Sep, 2011 [facility] [place] [address] [id number] [address] [place] [address], [place] [address] Sep, [facility] [address] [id number] [address] [place] [id number] Sep, [facility] [address] [id number] [address] [place] [id number] Aug, [facility] [address] [id number] [address] [place] [id number] Aug, [facility] [address] [id number] [address] [place] [id number] Aug, [facility] [address] [id number] [address] [place] [id number] Aug, [facility] [address] [id number] [address] [place] [id number] Aug, [facility] [address] [id number] [address] [place] [id number] Aug, [facility] [address] [id number] [address] [place] [id number] Aug, [facility] [address] [id number] [address] [place] [id number] Aug, [facility] [address] [id number] [address] [place] [id number] Aug, [facility] [address] [id number] [address] [place] [id number] Jul, [facility] [address] [id number] [address] [place] [id number] May, IMMUNIZATIONS No Known Immunizations SOCIAL HISTORY Never Assessed REASON FOR VISIT PLAN OF CARE VITAL SIGNS Height 68 in 2014-12-01 Weight 233 lbs 2014-12-01 Temperature 97.4 degrees Fahrenheit 2014-12-01 Heart Rate 80 bpm 2014-12-01 Respiratory Rate 28 2014-12-01 Blood pressure systolic 138 mmHg 2014-12-01 Blood pressure diastolic 90 mmHg 2014-12-01 MEDICATIONS Unknown Medications RESULTS No Results PROCEDURES [...]
--- OUTSIDE RECORDS SUMMARY | 2020-02-07 09:16 | XMS REPORT ---
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 Active 168660877 Problem Hypercholesterolemia E78.0 Active 34356763 Problem Secondary hypertension I15.9 Active 70151880 Problem Acquired hypothyroidism E03.9 Active 224485057 Problem Anxiety F41.9 Active 44751885 Problem Tingling in extremities R20.2 Active 88191186 Problem Personality disorder in adult F60.9 Active 34949643 Problem Generalized anxiety disorder F41.1 A ctive 99596287 Problem Gastroesophageal reflux disease without esophagitis K21.9 Active 677270150 Problem Environmental allergies Z91.09 Active 924915215 Problem Hypothyroidism (acquired) E03.9 Acti ve 179090486 Problem Acute eczema L30.9 Active 6565426 02 Problem Depression, unspecified depression type F32.9 Active 55276127 Problem Major depressive disorder, recurrent, moderate F33 .1 Active 72291750 Problem Drug-induced erectile dysfunction N52.2 Active 947479350 Problem Acute left-sided low back pain with left-sided sciatica M54.42 Active 303412142 Problem Primary insomnia F51.01 Active 397 2004 ALLERGIES No Information ENCOUNTERS Encounter Location Date Diagnosis [facility] [address] [facility] [id number] [address] [place] [id number] Jul, [facility] [address] [facility] [id number] [address] [place] [id number] Jul, [facility] [address] [id number] [address] [place] [id number] Jun, Generalized anxiety disorder F41.1 [facility] [address] [id number] [address] [place] [id number] Jun, [facility] [address] [facility] [id number] [address] [place] [address] Apr, [facility] [address] [facility] [id number] [address] [place] [id number] March, [facility] [address] [id number] [address] [place] [id number] Feb, Generalized anxiety disorder F41.1 ; Major depressive disorder, recurrent, moderate F33.1 and Personality disorder in adult F60.9 [facility] [address] [facility] [id number] [address] [place] [phone] Jan, [facility] [address] [facility] [id number] [address] [place] [address] Dec, [facility] [address] [facility] [id number] [address] [place] [address] Dec, Acquired hypothyroidism E03. 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 [facility] [address] [facility] [id number] [address] [place] [id number] Nov, [facility] [address] [facility] [id number] [address] [place] [id number] Oct, [facility] [address] [facility] [id number] [address] [place] [phone] Sep, Generalized anxiety disorder F41.1 ; Major depressive disorder, recurrent, moderate F33.1 and Personality disorder in adult F60.9 [facility] [address] [id number] [address] [place] [id number] 15 Aug, 2018 [facility] [address] [id number] [address] [place] [address] Aug, [facility] [address] [facility] [id number] [address] [place] [address] Jul, Generalized anxiety disorder F41.1 [facility] [address] [id number] [address] [place] [id number] Jul, [facility] [address] [facility] [id number] [address] [place] [address] Jul, Acquired hypothyroidism E03. 9 [facility] [address] [facility] [id number] [address] [place] [address] Jul, Generalized anxiety disorder F41.1 [facility] [address] [facility] [id number] [address] [place] [id number] 04 Jul, 2018 Generalized anxiety disorder F41.1 ; Major depressive disorder, recurrent, moderate F33.1 and Personality disorder in adult F60.9 [facility] [address] [facility] [id number] [address] [place] [id number] Jun, Generalized anxiety disorder F41.1 ; Major depressive disorder, recurrent, moderate F33.1 ; Primary insomnia F51.01 and Personality disorder in adult F60.9 [facility] [address] [facility] [id number] [address] [place] [id number] May, Acquired hypothyroidism E03. 9 [facility] [address] [facility] [id number] [address] [place] [id number] May, Hypothyroidism (acquired) E0 3.9 and Gastroesophageal reflux disease without esophagitis K21.9 [facility] [address] [facility] [id number] [address] [place] [id number] Apr, [facility] [address] [facility] [id number] [address] [place] [id number] 11 Apr, 2018 Skin infection L08.9 [facility] [address] [facility] [id number] [address] [place] [id number] 05 Apr, 2018 Generalized anxiety disorder F41.1 ; Major depressive disorder, recurrent, moderate F33.1 ; Primary insomnia F51.01 and Personality disorder in adult F60.9 [facility] [address] [facility] [id number] [address] [place] [address] March, Generalized anxiety disorder F41.1 ; Major depressive disorder, recurrent, moderate F33.1 and Personality disorder in adult F60.9 [facility] [address] [facility] [id number] [address] [place] [id number] Feb, [facility] [address] [facility] [id number] [address] [place] [id number] 06 Dec, 2017 Generalized anxiety disorder F41.1 ; Major depressive disorder, recurrent, moderate F33.1 and Personality disorder in adult F60.9 [facility] [address] [facility] [id number] [address] [place] [id number] 06 Dec, 2017 Acute left-sided low back pa in with left-sided sciatica M54.42 [facility] [address] [facility] [id number] [address] [place] [id number] Nov, [facility] [address] [facility] [id number] [address] [place] [id number] Oct, Generalized anxiety disorder F41.1 ; Major depressive disorder, recurrent, moderate F33.1 and Personality disorder in adult F60.9 [facility] [address] [facility] [id number] [address] [place] [id number] Sep, Acquired hypothyroidism E03. 9 ; Hypercholesterolemia E78.0 ; Generalized anxiety disorder F41.1 and Drug-induced erectile dysfunction N52.2 [facility] [address] [facility] [id number] [address] [place] [id number] Sep, [facility] [address] [facility] [id number] [address] [place] [id number] 17 Sep, 2017 Acquired hypothyroidism E03. 9 ; Hypercholesterolemia E78.0 ; Generalized anxiety disorder F41.1 and Drug-induced erectile dysfunction N52.2 [facility] [address] [id number] [address] [place] [id number] 07 Sep, 2017 Generalized anxiety disorder F41.1 ; Major depressive disorder, recurrent, moderate F33.1 and Personality disorder in adult F60.9 [facility] [address] [id number] [address] [place] [id number] Aug, Dental examination Z01.20 [facility] [address] [id number] [address] [place] [id number] Aug, Dental caries K02.9 [facility] [address] [id number] [address] [place] [id number] Aug, [facility] [address] [id number] [address] [place] [address] [id number] Aug, Dental examination Z01.20 [facility] [address] [id number] [address] [place] [id number] 20 Jul, 2017 Major depressive disorder, r ecurrent, moderate F33.1 [facility] [address] [facility] [id number] [address] [place] [id number] 19 Jul, 2017 Generalized anxiety disorder F41.1 ; Major depressive disorder, recurrent, moderate F33.1 and Personality disorder in adult F60.9 [facility] [address] [id number] [address] [place] [id number] 08 Jul, 2017 Generalized anxiety disorder F41.1 ; Major depressive disorder, recurrent, moderate F33.1 and Personality disorder in adult F60.9 [facility] [address] [facility] [id number] [address] [place], [place] [phone] Jun, Generalized anxiety disorder F41.1 ; Major depressive disorder, recurrent, moderate F33.1 and Personality disorder in adult F60.9 [facility] [address] [facility] [id number] [address] [place] [id number] Apr, Generalized anxiety disorder F41.1 ; Major depressive disorder, recurrent, moderate F33.1 and Personality disorder in adult F60.9 [place] [address] [address] March, Acquired hypothyroidism E03. [address] [id number] March, Acquired hypothyroidism E03. 9 and Left lower quadrant pain R10.[address] [address] March, Hypercholesterolemia E78.0 ; Acquired hypothyroidism E03.9 ; Insomnia, unspecified type G47.00 ; Secondary hypertension I15.9 ; Gastroesophageal reflux disease, esophagitis presence not specified K21.9 ; Tingling in extremities R20.2 ; Environmental allergies Z91.09 ; Depression, unspecified depression type F32.9 and Left lower quadrant pain R10.32 [place] [address] [address] Feb, High risk sexual behavior Z7 2.[address] [address] Feb, Major depressive disorder, r ecurrent, moderate F33.1 and Generalized anxiety disorder F41.[address] [address] Dec, Major depressive disorder, r ecurrent, moderate F33.1 [place] [address] [address] 17 Dec, [address] [address] 16 Dec, 2016 Acquired hypothyroidism E03. 9 and High risk sexual behavior Z72.[address] [address] 07 Dec, 2016 Major depressive disorder, r ecurrent, moderate F33.1 and Generalized anxiety disorder F41.1 [place] [address] [place] [id number] [address] [place] [id number] Dec, Acquired hypothyroidism E03. 9 ; Secondary hypertension I15.9 and Acute eczema L30.9 [place] [address] [place] [id number] [place] [address] Nov, Acquired hypothyroidism E03. 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 ; Hypercholesterolemia E78.0 ; Gastroesophageal reflux disease, esophagitis presence not specified K21.9 ; Anxiety F41.9 and Secondary hypertension I15.9 [place] [address] [address] Oct, Major depressive disorder, r ecurrent, moderate F33.1 and Generalized anxiety disorder F41.1 [place] [address] [address] Aug, [place] [address] [address] Aug, Insomnia, unspecified type G 47.00 ; Acquired hypothyroidism E03.9 ; Hypercholesterolemia E78.0 and Gastroesophageal reflux disease, esophagitis presence not specified K21.9 [place] [address] [address] Jul, [place] [address] [address] Jul, Major depressive disorder, r ecurrent, in partial remission F33.41 and Generalized anxiety disorder F41.1 [place] [address] [address] Jun, [place] [address] [address] Jun, Cervical pain (neck) M54.2 a nd Cervical neuropathic pain M54.12 [place] [address] [address] 14 Apr, 2016 Insomnia, unspecified type G 47.00 ; Acquired hypothyroidism E03.9 ; Hypercholesterolemia E78.0 ; 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 ; Depression, unspecified depression type F32.9 ; 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 ; Gastroesophageal reflux disease, esophagitis presence not specified K21.9 ; Anxiety F41.9 ; Secondary hypertension I15.9 and Post- nasal drainage R09.82 [place] [address] [address] Apr, [place] [address] [address] March, [place] [address] [address] March, Unspecified hypothyroidism 2 44.9 and HTN (hypertension) 401.9 [place] [address] [address] March, [place] [address] [address] Dec, [place] [address] [address] Nov, [place] [address] [address] Sep, Generalized anxiety disorder F41.1 and Major depressive disorder, recurrent, in partial remission F33.41 [place] [address] [address] Jun, Unspecified hypothyroidism 2 44.9 ; Sciatica 724.3 ; Major depressive disorder, recurrent episode, in partial or unspecified remission 296.35 ; Combined hyperlipidemia 272.2 ; HTN (hypertension) 401.9 ; Hidrosis 780.8 ; Cat allergies 477.8 and Environmental allergies V15.09 [place] [address] [address] Jun, Major depressive disorder, r ecurrent episode, in partial or unspecified remission 296.35 ; Insomnia, unspecified 780.52 and Generalized anxiety disorder 300.02 [facility] [address] [facility] [id number] [address] [place] [address] May, [facility] [address] [place] [id number] [address] [place] [id number] Apr, [facility] [address] [place] [id number] [place] [address] Apr, Closed mallet fracture of di stal phalanx of ring finger 816.02 [facility] [address] [place] [id number] [place] [address] March, Depression, major, recurrent , moderate 296.32 ; Generalized anxiety disorder 300.02 and Borderline personality disorder 301.83 [facility] [address] [place] [id number] [address] [place] [id number] Feb, [facility] [address] [place] [id number] [address] [place] [id number] Feb, [facility] [address] [place] [id number] [address] [place] [id number] Jan, [facility] [address] [place] [id number] [address] [place] [id number] Jan, [facility] [address] [place] [id number] [address] [place] [id number] Jan, [facility] [address] [facility] [id number] [address] [place] [phone] Jan, [facility] [address] [facility] [id number] [address] [place] [phone] Jan, [facility] [address] [place] [id number] [address] [place] [id number] Jan, [facility] [address] [place] [id number] [address] [place] [id number] Dec, [facility] [address] [id number] [address] [place] [address], [place] [address] Dec, [facility] [address] [id number] [address] [place] [address], [place] [address] Dec, [facility] [address] [id number] [address] [place] [address], [place] [address] Dec, [facility] [address] [id number] [address] [place] [address], [place] [address] Nov, [facility] [address] [id number] [address] [place] [address], [place] [address] Nov, [facility] [address] [id number] [address] [place] [address], [place] [address] Nov, [facility] [address] [id number] [address] [place] [address], [place] [address] Nov, [facility] [address] [id number] [address] [place] [address], [place] [address] Nov, [facility] [address] [id number] [address] [place] [address], [place] [address] Nov, [facility] [address] [id number] [address] [place] [address], [place] [address] Oct, [facility] [address] [id number] [address] [place] [address], [place] [address] Oct, [facility] [address] [id number] [address] [place] [id number] Oct, [facility] [address] [id number] [address] [place] [address], [place] [address] Oct, [facility] [address] [id number] [address] [place] [address], [place] [address] Oct, [facility] [address] [id number] [address] [place] [address], [place] [address] Oct, [facility] [address] [id number] [address] [place] [id number] Sep, [facility] [address] [id number] [address] [place] [address], [place] [address] Sep, [facility] [address] [id number] [address] [place] [address], [place] [address] Sep, [facility] [address] [id number] [address] [place] [address], [place] [address] Sep, [facility] [address] [id number] [address] [place] [address], [place] [address] Aug, [facility] [address] [id number] [address] [place] [address], [place] [address] Aug, [facility] [address] [id number] [address] [place] [address], [place] [address] Apr, [facility] [address] [id number] [address] [place] [address], [place] [address] Apr, [facility] [address] [id number] [address] [place] [address], [place] [address] Apr, [facility] [address] [id number] [address] [place] [address], [place] [address] Apr, [facility] [address] [id number] [address] [place] [address], [place] [address] Apr, [facility] [address] [id number] [address] [place] [phone] Apr, [facility] [address] [id number] [address] [place] [phone] March, [facility] [address] [id number] [address] [place] [address], [place] [address] March, [facility] [address] [id number] [address] [place] [phone] Dec, [facility] [address] [id number] [address] [place] [address], [place] [address] Dec, [facility] [address] [id number] [address] [place] [address], [place] [address] 08 Sep, 2013 [facility] [address] [id number] [address] [place] [address], [place] [address] Sep, [facility] [address] [id number] [address] [place] [address], [place] [address] Aug, [facility] [address] [id number] [address] [place] [address], [place] [address] Aug, [facility] [address] [id number] [address] [place] [address], [place] [address] Aug, [facility] [address] [id number] [address] [place] [address], [place] [address] Aug, [facility] [address] [id number] [address] [place] [address], [place] [address] Aug, [facility] [address] [id number] [address] [place] [address], [place] [address] Aug, [facility] [address] [id number] [address] [place] [address], [place] [address] Aug, [facility] [address] [id number] [address] [place] [address], [place] [address] Aug, [facility] [address] [id number] [address] [place] [address], [place] [address] Aug, [facility] [address] [id number] [address] [place] [address], [place] [address] Aug, [facility] [address] [id number] [address] [place] [address], [place] [address] 27 Jul, 2013 [facility] [address] [id number] [address] [place] [address], [place] [address] 19 Jul, 2013 [facility] [address] [id number] [address] [place] [id number] 05 Jul, 2013 [facility] [address] [id number] [address] [place] [address] Jun, [facility] [address] [id number] [address] [place] [address], [place] [address] May, [facility] [address] [id number] [address] [place] [address], [place] [address] May, [facility] [address] [id number] [address] [place] [address], [place] [address] May, [facility] [address] [id number] [address] [place] [address], [place] [address] Apr, [facility] [address] [id number] [address] [place] [address], [place] [address] March, [facility] [address] [id number] [address] [place] [address], [place] [address] March, [facility] [address] [id number] [address] [place] [address], [place] [address] Feb, [facility] [address] [id number] [address] [place] [address], [place] [address] Feb, [facility] [address] [id number] [address] [place] [address], [place] [address] Feb, [facility] [address] [id number] [address] [place] [address], [place] [address] Feb, [facility] [address] [id number] [address] [place] [address], [place] [address] Jan, [facility] [address] [id number] [address] [place] [address], [place] [address] Jan, [facility] [address] [id number] [address] [place] [address], [place] [address] Jan, [facility] [address] [id number] [address] [place] [address], [place] [address] Jan, [facility] [address] [id number] [address] [place] [address], [place] [address] Dec, [facility] [address] [id number] [address] [place] [address], [place] [address] Dec, [facility] [address] [id number] [address] [place] [address], [place] [address] Dec, [facility] [address] [id number] [address] [place] [address], [place] [address] Nov, [facility] [address] [id number] [address] [place] [address], [place] [address] Nov, [facility] [address] [id number] [address] [place] [address], [place] [address] Nov, [facility] [address] [id number] [address] [place] [address], [place] [address] Nov, [facility] [address] [id number] [address] [place] [address], [place] [address] Oct, [facility] [address] [id number] [address] [place], [place] [address], [place] [address] Oct, [facility] [address] [id number] [address] [place] [address], [place] [address] Oct, [facility] [address] [id number] [address] [place] [address], [place] [address] Oct, [facility] [address] [id number] [address] [place] [address], [place] [address] Sep, [facility] [address] [id number] [address] [place] [address], [place] [address] Sep, [facility] [address] [id number] [address] [place] [address], [place] [address] Sep, [facility] [address] [id number] [address] [place] [address], [place] [address] Sep, [facility] [address] [id number] [address] [place] [address], [place] [address] Aug, [facility] [address] [id number] [address] [place] [address], [place] [address] Aug, [facility] [address] [id number] [address] [place] [address], [place] [address] Aug, [facility] [address] [id number] [address] [place] [address], [place] [address] Jul, [facility] [address] [id number] [address] [place] [address], [place] [address] Jun, [facility] [address] [id number] [address] [place] [address], [place] [address] May, [facility] [address] [id number] [address] [place] [address], [place] [address] May, [facility] [address] [id number] [address] [place] [address], [place] [address] May, [facility] [address] [id number] [address] [place] [address], [place] [address] March, [facility] [address] [id number] [address] [place] [address], [place] [address] March, [facility] [address] [id number] [address] [place] [address], [place] [address] Feb, [facility] [address] [id number] [address] [place] [address], [place] [address] Feb, [facility] [address] [id number] [address] [place] [address], [place] [address] Feb, [facility] [address] [id number] [address] [place] [address], [place] [address] Feb, [facility] [address] [id number] [address] [place] [address], [place] [address] Feb, [facility] [address] [id number] [address] [place] [address], [place] [address] Feb, [facility] [address] [id number] [address] [place] [address], [place] [address] Feb, [facility] [address] [id number] [address] [place] [id number] Feb, [facility] [address] [id number] [address] [place] [address], [place] [address] Dec, [facility] [address] [id number] [address] [place] [address] Nov, [facility] [address] [id number] [address] [place] [address], [place] [address] Nov, [facility] [address] [id number] [address] [place] [address], [place] [address] Nov, [facility] [address] [id number] [address] [place] [address], [place] [address] Nov, [facility] [address] [id number] [address] [place] [address], [place] [address] Nov, [facility] [address] [id number] [address] [place] [address] Nov, [facility] [address] [id number] [address] [place] [address], [place] [address] Oct, [facility] [address] [id number] [address] [place] [address], [place] [address] Sep, [facility] [address] [id number] [address] [place] [address], [place] [address] Sep, [facility] [address] [id number] [address] [place] [address], [place] [address] Sep, [facility] [address] [id number] [address] [place] [id number] Sep, [facility] [address] [id number] [address] [place] [address], [place] [address] Aug, [facility] [address] [id number] [address] [place] [address], [place] [address] Aug, [facility] [address] [id number] [address] [place] [address], [place] [address] Aug, [facility] [address] [id number] [address] [place] [address] Aug, [facility] [address] [id number] [address] [place] [address] Aug, [facility] [address] [id number] [address] [place] [address] Aug, [facility] [address] [id number] [address] [place] [id number] Aug, [facility] [address] [id number] [address] [place] [address] Aug, [facility] [address] [id number] [address] [place] [address] Aug, [facility] [address] [id number] [address] [place] [id number] Jul, [facility] [address] [id number] [address] [place] [id number] May, IMMUNIZATIONS No Known Immunizations SOCIAL HISTORY [...]
--- OUTSIDE RECORDS SUMMARY | 2020-02-07 09:16 | XMS REPORT ---
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 Active 441992489 Problem Hypercholesterolemia E78.0 Active 29960000 Problem Secondary hypertension I15.9 Active 09243272 Problem Acquired hypothyroidism E03.9 Active 348329584 Problem Anxiety F41.9 Active 83957778 Problem Tingling in extremities R20.2 Active 57286517 Problem Personality disorder in adult F60.9 Active 68577037 Problem Generalized anxiety disorder F41.1 A ctive 11835808 Problem Gastroesophageal reflux disease without esophagitis K21.9 Active 545287042 Problem Environmental allergies Z91.09 Active 941006478 Problem Hypothyroidism (acquired) E03.9 Acti ve 834489460 Problem Acute eczema L30.9 Active 7786673 02 Problem Depression, unspecified depression type F32.9 Active 84279996 Problem Major depressive disorder, recurrent, moderate F33 .1 Active 37062789 Problem Drug-induced erectile dysfunction N52.2 Active 554649929 Problem Acute left-sided low back pain with left-sided sciatica M54.42 Active 348222140 Problem Primary insomnia F51.01 Active 397 2004 ALLERGIES No Information ENCOUNTERS Encounter Location Date Diagnosis [facility] [address] [facility] [id number] [address] [place] [phone] Oct, [facility] [address] [facility] [id number] [address] [place] [address] Jul, Generalized anxiety disorder F41.1 ; Major depressive disorder, recurrent, moderate F33.1 ; Personality disorder in adult F60.9 and Other long term care administrator (current) drug therapy Z79.899 [facility] [address] [id number] [address] [place] [phone] 16 Jul, 2019 [facility] [address] [facility] [id number] [address] [place] [address] Jul, [facility] [address] [id number] [address] [place] [address] Jun, Generalized anxiety disorder F41.1 [facility] [address] [facility] [id number] [address] [place] [phone] Jun, [facility] [address] [facility] [id number] [address] [place] [phone] Apr, [facility] [address] [facility] [id number] [address] [place] [address] March, [facility] [address] [facility] [id number] [address] [place] [phone] Feb, Generalized anxiety disorder F41.1 ; Major depressive disorder, recurrent, moderate F33.1 and Personality disorder in adult F60.9 [facility] [address] [facility] [id number] [address] [place] [phone] Jan, [facility] [address] [facility] [id number] [address] [place] [phone] Dec, [facility] [address] [facility] [id number] [address] [place] [address] Dec, Acquired hypothyroidism E03. 9 and Other long term care administrator (current) drug therapy Z79.899 [facility] [address] [id number] [address] [place] [address] Dec, Acquired hypothyroidism E03. 9 [facility] [address] [facility] [id number] [address] [place] [phone] Nov, Generalized anxiety disorder F41.1 ; Major depressive disorder, recurrent, moderate F33.1 ; Personality disorder in adult F60.9 and Other retirement (current) drug therapy Z79.899 [facility] [address] [id number] [address] [place] [phone] Nov, [facility] [address] [facility] [id number] [address] [place] [phone] Oct, [facility] [address] [facility] [id number] [address] [place] [address] Sep, Generalized anxiety disorder F41.1 ; Major depressive disorder, recurrent, moderate F33.1 and Personality disorder in adult F60.9 [facility] [address] [id number] [address] [place] [phone] Aug, [facility] [address] [id number] [address] [place] [phone] Aug, [facility] [address] [facility] [id number] [address] [place] [phone] Jul, Generalized anxiety disorder F41.1 [facility] [address] [facility] [id number] [address] [place] [phone] 24 Jul, 2018 [facility] [address] [facility] [id number] [address] [place] [phone] Jul, Acquired hypothyroidism E03. 9 [facility] [address] [facility] [id number] [address] [place] [address] Jul, Generalized anxiety disorder F41.1 [facility] [address] [facility] [id number] [address] [place] [phone] 04 Jul, 2018 Generalized anxiety disorder F41.1 ; Major depressive disorder, recurrent, moderate F33.1 and Personality disorder in adult F60.9 [facility] [address] [id number] [address] [place] [address] Jun, Generalized anxiety disorder F41.1 ; Major depressive disorder, recurrent, moderate F33.1 ; Primary insomnia F51.01 and Personality disorder in adult F60.9 [facility] [address] [facility] [id number] [address] [place] [phone] May, Acquired hypothyroidism E03. 9 [facility] [address] [facility] [id number] [address] [place] [phone] 27 May, 2018 Hypothyroidism (acquired) E0 3.9 and Gastroesophageal reflux disease without esophagitis K21.9 [facility] [address] [facility] [id number] [address] [place] [phone] Apr, [facility] [address] [facility] [id number] [address] [place] [phone] Apr, Skin infection L08.9 [facility] [address] [facility] [id number] [address] [place] [phone] Apr, Generalized anxiety disorder F41.1 ; Major depressive disorder, recurrent, moderate F33.1 ; Primary insomnia F51.01 and Personality disorder in adult F60.9 [facility] [address] [place] [id number] [place] [address] March, Generalized anxiety disorder F41.1 ; Major depressive disorder, recurrent, moderate F33.1 and Personality disorder in adult F60.9 [facility] [address] [place] [id number] [address] [place] [phone] Feb, [facility] [address] [facility] [id number] [address] [place] [address] Dec, Generalized anxiety disorder F41.1 ; Major depressive disorder, recurrent, moderate F33.1 and Personality disorder in adult F60.9 [facility] [address] [facility] [id number] [address] [place] [phone] Dec, Acute left-sided low back pa in with left-sided sciatica M54.42 [facility] [address] [facility] [id number] [address] [place] [phone] Nov, [facility] [address] [place] [id number] [address] [place] [phone] Oct, Generalized anxiety disorder F41.1 ; Major depressive disorder, recurrent, moderate F33.1 and Personality disorder in adult F60.9 [facility] [address] [id number] [address] [place] [phone] Sep, Acquired hypothyroidism E03. 9 ; Hypercholesterolemia E78.0 ; Generalized anxiety disorder F41.1 and Drug-induced erectile dysfunction N52.2 [facility] [address] [id number] [address] [place] [address] Sep, [facility] [address] [id number] [address] [place] [phone] Sep, Acquired hypothyroidism E03. 9 ; Hypercholesterolemia E78.0 ; Generalized anxiety disorder F41.1 and Drug-induced erectile dysfunction N52.2 [facility] [address] [id number] [address] [place] [phone] 07 Sep, 2017 Generalized anxiety disorder F41.1 ; Major depressive disorder, recurrent, moderate F33.1 and Personality disorder in adult F60.9 [facility] [address] [id number] [address] [place] [id number] Aug, Dental examination Z01.20 [facility] [address] [id number] [address] [place] [id number] Aug, Dental caries K02.9 [facility] [address] [id number] [address] [place] [phone] Aug, [facility] [address] [id number] [address] [place] [id number] Aug, Dental examination Z01.20 [facility] [address] [id number] [address] [place] [phone] Jul, Major depressive disorder, r ecurrent, moderate F33.1 [facility] [address] [id number] [address] [place] [phone] 19 Jul, 2017 Generalized anxiety disorder F41.1 ; Major depressive disorder, recurrent, moderate F33.1 and Personality disorder in adult F60.9 [place] [facility] [address] [place] [id number] [address] [place] [phone] 08 Jul, 2017 Generalized anxiety disorder F41.1 ; Major depressive disorder, recurrent, moderate F33.1 and Personality disorder in adult F60.9 [place] [address] [place] [id number] [address] [place] [phone] Jun, Generalized anxiety disorder F41.1 ; Major depressive disorder, recurrent, moderate F33.1 and Personality disorder in adult F60.9 [place] [address] [address] Apr, Generalized anxiety disorder F41.1 ; Major depressive disorder, recurrent, moderate F33.1 and Personality disorder in adult F60.9 [place] [address] [address] March, Acquired hypothyroidism E03. [address] [address] March, Acquired hypothyroidism E03. 9 and Left lower quadrant pain R10.[address] [address] March, Hypercholesterolemia E78.0 ; Acquired hypothyroidism E03.9 ; Insomnia, unspecified type G47.00 ; Secondary hypertension I15.9 ; Gastroesophageal reflux disease, esophagitis presence not specified K21.9 ; Tingling in extremities R20.2 ; Environmental allergies Z91.09 ; Depression, unspecified depression type F32.9 and Left lower quadrant pain R10.32 [place] [address] [place] [id number] [address] [place] [address] Feb, High risk sexual behavior Z7 2.[address] [address] Feb, Major depressive disorder, r ecurrent, moderate F33.1 and Generalized anxiety disorder F41.1 [place] [id number] [place] [address] Dec, Major depressive disorder, r ecurrent, moderate F33.1 [place] [address] [place] [id number] [address] [place] [address] Dec, [place] [address] [address] 16 Dec, 2016 Acquired hypothyroidism E03. 9 and High risk sexual behavior Z72.51 [place] [address] [address] Dec, Major depressive disorder, r ecurrent, moderate F33.1 and Generalized anxiety disorder F41.[address] [address] Dec, Acquired hypothyroidism E03. 9 ; Secondary hypertension I15.9 and Acute eczema L30.[address] [address] Nov, Acquired hypothyroidism E03. 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 ; Hypercholesterolemia E78.0 ; Gastroesophageal reflux disease, esophagitis presence not specified K21.9 ; Anxiety F41.9 and Secondary hypertension I15.9 [place] [address] [address] Oct, Major depressive disorder, r ecurrent, moderate F33.1 and Generalized anxiety disorder F41.1 [place] [address] [place] [id number] [address] [place] [phone] Aug, [place] [address] [address] Aug, Insomnia, unspecified type G 47.00 ; Acquired hypothyroidism E03.9 ; Hypercholesterolemia E78.0 and Gastroesophageal reflux disease, esophagitis presence not specified K21.9 [place] [address] [address] Jul, [place] [address] [address] Jul, Major depressive disorder, r ecurrent, in partial remission F33.41 and Generalized anxiety disorder F41.1 [place] [address] [address] Jun, [place] [address] [address] Jun, Cervical pain (neck) M54.2 a nd Cervical neuropathic pain M54.12 [place] [address] [address] 14 Apr, 2016 Insomnia, unspecified type G 47.00 ; Acquired hypothyroidism E03.9 ; Hypercholesterolemia E78.0 ; 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 ; Depression, unspecified depression type F32.9 ; 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 ; Gastroesophageal reflux disease, esophagitis presence not specified K21.9 ; Anxiety F41.9 ; Secondary hypertension I15.9 and Post- nasal drainage R09.82 [place] [address] [address] Apr, [place] [address] [address] March, [place] [address] [address] March, Unspecified hypothyroidism 2 44.9 and HTN (hypertension) 401.9 [place] [address] [address] March, [place] [address] [address] Dec, [place] [address] [address] Nov, [place] [address] [address] Sep, Generalized anxiety disorder F41.1 and Major depressive disorder, recurrent, in partial remission F33.41 [place] [address] [address] Jun, Unspecified hypothyroidism 2 44.9 ; Sciatica 724.3 ; Major depressive disorder, recurrent episode, in partial or unspecified remission 296.35 ; Combined hyperlipidemia 272.2 ; HTN (hypertension) 401.9 ; Hidrosis 780.8 ; Cat allergies 477.8 and Environmental allergies V15.09 [place] [address] [address] Jun, Major depressive disorder, r ecurrent episode, in partial or unspecified remission 296.35 ; Insomnia, unspecified 780.52 and Generalized anxiety disorder 300.[address] [address] May, [address] [address] Apr, [address] [address] Apr, Closed mallet fracture of di stal phalanx of ring finger 816.[address] [address] March, Depression, major, recurrent , moderate 296.32 ; Generalized anxiety disorder 300.02 and Borderline personality disorder 301.83 [place] [address] [address] Feb, [place] [address] [address] Feb, [address] [address] Jan, [place] [address] [address] Jan, [address] [address] Jan, [facility] [address] [id number] [address] [place] [address], [place] [address] Jan, [facility] [address] [id number] [address] [place] [address], [place] [address] Jan, [facility] [address] [id number] [address] [place] [address], [place] [address] Jan, [facility] [address] [id number] [address] [place] [address], [place] [address] Dec, [facility] [address] [id number] [address] [place] [address], [place] [address] Dec, [facility] [address] [id number] [address] [place] [address], [place] [address] Dec, [facility] [address] [id number] [address] [place] [address], [place] [address] Dec, [facility] [address] [id number] [address] [place] [address], [place] [address] Nov, [facility] [address] [id number] [address] [place] [address], [place] [address] Nov, [facility] [address] [id number] [address] [place] [address], [place] [address] Nov, [facility] [address] [id number] [address] [place] [address], [place] [address] Nov, [facility] [address] [id number] [address] [place] [address], [place] [address] Nov, [facility] [address] [id number] [address] [place] [address], [place] [address] Nov, [facility] [address] [id number] [address] [place] [address], [place] [address] Oct, [facility] [address] [id number] [address] [place] [address], [place] [address] Oct, [facility] [address] [id number] [address] [place] [address], [place] [address] Oct, [facility] [address] [id number] [address] [place] [address], [place] [address] Oct, [facility] [address] [id number] [address] [place] [address], [place] [address] Oct, [facility] [address] [id number] [address] [place] [address], [place] [address] Oct, [facility] [address] [id number] [address] [place] [address], [place] [address] Sep, [facility] [address] [id number] [address] [place] [address], [place] [address] Sep, [facility] [address] [id number] [address] [place] [address], [place] [address] Sep, [facility] [address] [id number] [address] [place] [address], [place] [address] Sep, [facility] [address] [id number] [address] [place] [address], [place] [address] Aug, [facility] [address] [id number] [address] [place] [address], [place] [address] Aug, [facility] [address] [id number] [address] [place] [address], [place] [address] Apr, [facility] [address] [id number] [address] [place] [address], [place] [address] Apr, [facility] [address] [id number] [address] [place] [address], [place] [address] Apr, [facility] [address] [id number] [address] [place] [address], [place] [address] Apr, [facility] [address] [id number] [address] [place] [address], [place] [address] Apr, [facility] [address] [id number] [address] [place] [address], [place] [address] Apr, [facility] [address] [id number] [address] [place] [address], [place] [address] March, [facility] [address] [id number] [address] [place] [address], [place] [address] March, [facility] [address] [id number] [address] [place] [address], [place] [address] Dec, [facility] [address] [id number] [address] [place] [address], [place] [address] Dec, [facility] [address] [id number] [address] [place] [address], [place] [address] Sep, [facility] [address] [id number] [address] [place] [address], [place] [address] Sep, [facility] [address] [id number] [address] [place] [address], [place] [address] Aug, [facility] [address] [id number] [address] [place] [address] Aug, [facility] [address] [id number] [address] [place] [address] Aug, [facility] [address] [id number] [address] [place] [address] Aug, [facility] [address] [id number] [address] [place] [address] Aug, [facility] [address] [id number] [address] [place] [address] Aug, [facility] [address] [id number] [address] [place] [address] Aug, [facility] [address] [id number] [address] [place] [address] Aug, [facility] [address] [id number] [address] [place] [address] Aug, [facility] [address] [id number] [address] [place] [address] Aug, [facility] [address] [id number] [address] [place] [address], [place] [address] 27 Jul, 2013 [facility] [address] [id number] [address] [place] [address], [place] [address] Jul, [facility] [address] [id number] [address] [place] [address], [place] [address] 05 Jul, 2013 [facility] [address] [id number] [address] [place] [address], [place] [address] Jun, [facility] [address] [id number] [address] [place] [address], [place] [address] May, [facility] [address] [id number] [address] [place] [address], [place] [address] May, [facility] [address] [id number] [address] [place] [address], [place] [address] May, [facility] [address] [id number] [address] [place] [address], [place] [address] Apr, [facility] [address] [id number] [address] [place] [address], [place] [address] March, [facility] [address] [id number] [address] [place] [address], [place] [address] March, [facility] [address] [id number] [address] [place] [address], [place] [address] 30 Feb, 2013 [facility] [address] [id number] [address] [place] [address], [place] [address] 18 Feb, 2013 [facility] [address] [id number] [address] [place] [address], [place] [address] Feb, [facility] [address] [id number] [address] [place] [address], [place] [address] Feb, [facility] [address] [id number] [address] [place] [address], [place] [address] Jan, [facility] [address] [id number] [address] [place] [address], [place] [address] Jan, [facility] [address] [id number] [address] [place] [address], [place] [address] Jan, [facility] [address] [id number] [address] [place] [address], [place] [address] Jan, [facility] [address] [id number] [address] [place] [address], [place] [address] Dec, [facility] [address] [id number] [address] [place] [address], [place] [address] Dec, [facility] [address] [id number] [address] [place] [address], [place] [address] Dec, [facility] [address] [id number] [address] [place] [address], [place] [address] Nov, [facility] [address] [id number] [address] [place] [address], [place] [address] Nov, [facility] [address] [id number] [address] [place] [address], [place] [address] Nov, [facility] [address] [id number] [address] [place] [address], [place] [address] Nov, [facility] [address] [id number] [address] [place] [address], [place] [address] Oct, [facility] [address] [id number] [address] [place] [address], [place] [address] Oct, [facility] [address] [id number] [address] [place] [address], [place] [address] Oct, [facility] [address] [id number] [address] [place] [address], [place] [address] Oct, [facility] [address] [id number] [address] [place] [address], [place] [address] 16 Sep, 2012 [facility] [address] [id number] [address] [place] [address], [place] [address] Sep, [facility] [address] [id number] [address] [place] [address], [place] [address] Sep, [facility] [address] [id number] [address] [place] [address], [place] [address] Sep, [facility] [address] [id number] [address] [place] [address], [place] [address] Aug, [facility] [address] [id number] [address] [place] [address], [place] [address] Aug, [facility] [address] [id number] [address] [place] [address], [place] [address] Aug, [facility] [address] [id number] [address] [place] [address], [place] [address] Jul, [facility] [address] [id number] [address] [place] [address], [place] [address] Jun, [facility] [address] [id number] [address] [place] [address], [place] [address] May, [facility] [address] [id number] [address] [place] [address], [place] [address] May, [facility] [address] [id number] [address] [place] [address], [place] [address] May, [facility] [address] [id number] [address] [place] [address], [place] [address] March, [facility] [address] [id number] [address] [place] [address], [place] [address] March, [facility] [address] [id number] [address] [place] [address], [place] [address] Feb, [facility] [address] [id number] [address] [place] [address], [place] [address] Feb, [facility] [address] [id number] [address] [place] [address], [place] [address] Feb, [facility] [address] [id number] [address] [place] [address], [place] [address] 17 Feb, 2012 [facility] [address] [id number] [address] [place] [address], [place] [address] 16 Feb, 2012 [facility] [address] [id number] [address] [place] [address], [place] [address] 16 Feb, 2012 [facility] [address] [id number] [address] [place] [address], [place] [address] 09 Feb, 2012 [facility] [address] [id number] [address] [place] [address], [place] [address] 06 Feb, 2012 [facility] [address] [id number] [address] [place] [address], [place] [address] Dec, [facility] [address] [id number] [address] [place] [address], [place] [address] Nov, [facility] [address] [id number] [address] [place] [address], [place] [address] 2011 [facility] [address] [id number] [address] [place] [address], [place] [address] Nov, [facility] [address] [id number] [address] [place] [address], [place] [address] Nov, [facility] [address] [id number] [address] [place] [address], [place] [address] 13 Nov, 2011 [facility] [address] [id number] [address] [place] [address], [place] [address] Nov, [facility] [address] [id number] [address] [place] [address], [place] [address] 14 Oct, 2011 [facility] [address] [id number] [address] [place] [address], [place] [address] Sep, [facility] [address] [id number] [address] [place] [address], [place] [address] 23 Sep, 2011 [facility] [address] [id number] [address] [place] [address], [place] [address] Sep, [facility] [address] [id number] [address] [place] [phone] Sep, [facility] [address] [id number] [address] [place] [phone] Aug, [facility] [address] [id number] [address] [place] [phone] Aug, [facility] [address] [id number] [address] [place] [phone] Aug, [facility] [address] [id number] [address] [place] [phone] Aug, [facility] [address] [id number] [address] [place] [phone] Aug, [facility] [address] [id number] [address] [place] [phone] Aug, [facility] [address] [id number] [address] [place] [phone] Aug, [facility] [address] [id number] [address] [place] [phone] Aug, [facility] [address] [id number] [address] [place] [phone] Aug, [facility] [address] [id number] [address] [place] [phone] Jul, [facility] [address] [id number] [address] [place] [phone] May, IMMUNIZATIONS No Known Immunizations SOCIAL HISTORY [...]
--- OUTSIDE RECORDS SUMMARY | 2020-02-07 09:16 | XMS REPORT ---
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 02196021 Problem 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 Active 522908326 Problem Hypercholesterolemia E78.0 Active 59480489 Problem Secondary hypertension I15.9 Active 59157408 Problem Acquired hypothyroidism E03.9 Active 154077493 Problem Anxiety F41.9 Active 97146681 Problem Tingling in extremities R20.2 Active 17132916 Problem Personality disorder in adult F60.9 Active 71400448 Problem Generalized anxiety disorder F41.1 A ctive 56454076 Problem Gastroesophageal reflux disease without esophagitis K21.9 Active 684315722 Problem Environmental allergies Z91.09 Active 291733002 Problem Hypothyroidism (acquired) E03.9 Acti ve 700817059 Problem Acute eczema L30.9 Active 5728627 02 Problem Depression, unspecified depression type F32.9 Active 94116138 Problem Major depressive disorder, recurrent, moderate F33 .1 Active 60508866 Problem Drug-induced erectile dysfunction N52.2 Active 038007550 Problem Acute left-sided low back pain with left-sided sciatica M54.42 Active 702454467 Problem Primary insomnia F51.01 Active 397 2004 ALLERGIES No Information ENCOUNTERS Encounter Location Date Diagnosis [facility] [address] [facility] [id number] [address] [place] [phone] Jul, [facility] [address] [facility] [id number] [address] [place] [phone] Jun, Generalized anxiety disorder F41.1 [facility] [address] [place] [id number] [address] [place] [phone] Jun, [facility] [address] [id number] [address] [place] [phone] Apr, [facility] [address] [id number] [address] [place] [phone] March, [facility] [address] [id number] [address] [place] [address] Feb, Generalized anxiety disorder F41.1 ; Major depressive disorder, recurrent, moderate F33.1 and Personality disorder in adult F60.9 [facility] [address] [id number] [address] [place] [id number] Jan, [facility] [address] [id number] [address] [place] [phone] Dec, [facility] [address] [facility] [id number] [address] [place] [address] Dec, Acquired hypothyroidism E03. 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 [facility] [address] [id number] [address] [place] [phone] Nov, [facility] [address] [facility] [id number] [address] [place] [phone] Oct, [facility] [address] [id number] [address] [place] [phone] Sep, Generalized anxiety disorder F41.1 ; Major depressive disorder, recurrent, moderate F33.1 and Personality disorder in adult F60.9 [facility] [address] [facility] [id number] [address] [place] [id number] 15 Aug, 2018 [facility] [address] [facility] [id number] [address] [place] [phone] 04 Aug, 2018 [facility] [address] [facility] [id number] [address] [place] [address] Jul, Generalized anxiety disorder F41.1 [facility] [address] [facility] [id number] [address] [place] [id number] 24 Jul, 2018 [facility] [address] [facility] [id number] [address] [place] [phone] Jul, Acquired hypothyroidism E03. 9 [facility] [address] [facility] [id number] [address] [place] [phone] 10 Jul, 2018 Generalized anxiety disorder F41.1 [place] [address] [place] [id number] [address] [place] [id number] 04 Jul, 2018 Generalized anxiety disorder F41.1 ; Major depressive disorder, recurrent, moderate F33.1 and Personality disorder in adult F60.9 [facility] [address] [facility] [id number] [address] [place] [id number] 07 Jun, 2018 Generalized anxiety disorder F41.1 ; Major depressive disorder, recurrent, moderate F33.1 ; Primary insomnia F51.01 and Personality disorder in adult F60.9 [facility] [address] [facility] [id number] [address] [place] [phone] May, Acquired hypothyroidism E03. 9 [facility] [address] [facility] [id number] [address] [place] [address] May, Hypothyroidism (acquired) E0 3.9 and Gastroesophageal reflux disease without esophagitis K21.9 [facility] [address] [facility] [id number] [address] [place] [address] Apr, [facility] [address] [facility] [id number] [address] [place] [address] Apr, Skin infection L08.9 [facility] [address] [facility] [id number] [address] [place] [id number] 05 Apr, 2018 Generalized anxiety disorder F41.1 ; Major depressive disorder, recurrent, moderate F33.1 ; Primary insomnia F51.01 and Personality disorder in adult F60.9 [facility] [address] [facility] [id number] [address] [place] [address] March, Generalized anxiety disorder F41.1 ; Major depressive disorder, recurrent, moderate F33.1 and Personality disorder in adult F60.9 [facility] [address] [facility] [id number] [address] [place] [phone] Feb, [facility] [address] [facility] [id number] [address] [place] [address] Dec, Generalized anxiety disorder F41.1 ; Major depressive disorder, recurrent, moderate F33.1 and Personality disorder in adult F60.9 [facility] [address] [facility] [id number] [address] [place] [id number] 06 Dec, 2017 Acute left-sided low back pa in with left-sided sciatica M54.42 [facility] [address] [facility] [id number] [address] [place] [phone] Nov, [facility] [address] [facility] [id number] [address] [place] [phone] Oct, Generalized anxiety disorder F41.1 ; Major depressive disorder, recurrent, moderate F33.1 and Personality disorder in adult F60.9 [facility] [address] [facility] [id number] [address] [place] [phone] Sep, Acquired hypothyroidism E03. 9 ; Hypercholesterolemia E78.0 ; Generalized anxiety disorder F41.1 and Drug-induced erectile dysfunction N52.2 [facility] [address] [facility] [id number] [address] [place] [phone] Sep, [facility] [address] [facility] [id number] [address] [place] [phone] Sep, Acquired hypothyroidism E03. 9 ; Hypercholesterolemia E78.0 ; Generalized anxiety disorder F41.1 and Drug-induced erectile dysfunction N52.2 [facility] [address] [id number] [address] [place] [phone] Sep, Generalized anxiety disorder F41.1 ; Major depressive disorder, recurrent, moderate F33.1 and Personality disorder in adult F60.9 [facility] [address] [id number] [address] [place] [id number] Aug, Dental examination Z01.20 [facility] [address] [id number] [address] [place] [id number] Aug, Dental caries K02.9 [facility] [address] [id number] [address] [place] [phone] Aug, [facility] [address] [id number] [address] [place] [id number] Aug, Dental examination Z01.20 [facility] [address] [id number] [address] [place] [id number] Jul, Major depressive disorder, r ecurrent, moderate F33.1 [facility] [address] [id number] [address] [place] [phone] Jul, Generalized anxiety disorder F41.1 ; Major depressive disorder, recurrent, moderate F33.1 and Personality disorder in adult F60.9 [facility] [address] [id number] [address] [place] [phone] Jul, Generalized anxiety disorder F41.1 ; Major depressive disorder, recurrent, moderate F33.1 and Personality disorder in adult F60.9 [facility] [address] [id number] [address] [place] [phone] Jun, Generalized anxiety disorder F41.1 ; Major depressive disorder, recurrent, moderate F33.1 and Personality disorder in adult F60.9 [facility] [address] [id number] [address] [place] [phone] Apr, Generalized anxiety disorder F41.1 ; Major depressive disorder, recurrent, moderate F33.1 and Personality disorder in adult F60.9 [place] [address] [address] March, Acquired hypothyroidism E03. 9 [place] [address] [place] [id number] [place] [phone] March, Acquired hypothyroidism E03. 9 and Left lower quadrant pain R10.32 [place] [address] [address] March, Hypercholesterolemia E78.0 ; Acquired hypothyroidism E03.9 ; Insomnia, unspecified type G47.00 ; Secondary hypertension I15.9 ; Gastroesophageal reflux disease, esophagitis presence not specified K21.9 ; Tingling in extremities R20.2 ; Environmental allergies Z91.09 ; Depression, unspecified depression type F32.9 and Left lower quadrant pain R10.32 [place] [address] [address] Feb, High risk sexual behavior Z7 2.51 [place] [address] [address] Feb, Major depressive disorder, r ecurrent, moderate F33.1 and Generalized anxiety disorder F41.1 [place] [address] [address] Dec, Major depressive disorder, r ecurrent, moderate F33.1 [place] [address] [address] Dec, [place] [address] [address] 16 Dec, 2016 Acquired hypothyroidism E03. 9 and High risk sexual behavior Z72.51 [place] [address] [place] [id number] 07 Dec, 2016 Major depressive disorder, r ecurrent, moderate F33.1 and Generalized anxiety disorder F41.1 [place] [address] [address] 07 Dec, 2016 Acquired hypothyroidism E03. 9 ; Secondary hypertension I15.9 and Acute eczema L30.9 [place] [address] [place] [id number] [place] [address] Nov, Acquired hypothyroidism E03. 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 ; Hypercholesterolemia E78.0 ; Gastroesophageal reflux disease, esophagitis presence not specified K21.9 ; Anxiety F41.9 and Secondary hypertension I15.9 [place] [address] [place] [id number] [place] [phone] Oct, Major depressive disorder, r ecurrent, moderate F33.1 and Generalized anxiety disorder F41.1 [place] [address] [place] [id number] [place] [address] Aug, [place] [address] [address] Aug, Insomnia, unspecified type G 47.00 ; Acquired hypothyroidism E03.9 ; Hypercholesterolemia E78.0 and Gastroesophageal reflux disease, esophagitis presence not specified K21.9 [place] [address] [place] [id number] [place] [address] Jul, [place] [address] [place] [id number] [place] [phone] Jul, Major depressive disorder, r ecurrent, in partial remission F33.41 and Generalized anxiety disorder F41.1 [place] [address] [place] [id number] [address] [place] [id number] Jun, [address] [address] Jun, Cervical pain (neck) M54.2 a nd Cervical neuropathic pain M54.12 [place] [address] [place] [id number] [address] [place] [phone] 14 Apr, 2016 Insomnia, unspecified type G 47.00 ; Acquired hypothyroidism E03.9 ; Hypercholesterolemia E78.0 ; 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 ; Depression, unspecified depression type F32.9 ; 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 ; Gastroesophageal reflux disease, esophagitis presence not specified K21.9 ; Anxiety F41.9 ; Secondary hypertension I15.9 and Post- nasal drainage R09.82 [place] [address] [address] Apr, [place] [address] [address] March, [place] [address] [address] March, Unspecified hypothyroidism 2 44.9 and HTN (hypertension) 401.9 [place] [address] [address] March, [place] [address] [address] Dec, [place] [address] [address] Nov, [place] [address] [address] Sep, Generalized anxiety disorder F41.1 and Major depressive disorder, recurrent, in partial remission F33.41 [place] [address] [address] Jun, Unspecified hypothyroidism 2 44.9 ; Sciatica 724.3 ; Major depressive disorder, recurrent episode, in partial or unspecified remission 296.35 ; Combined hyperlipidemia 272.2 ; HTN (hypertension) 401.9 ; Hidrosis 780.8 ; Cat allergies 477.8 and Environmental allergies V15.09 [place] [address] [address] Jun, Major depressive disorder, r ecurrent episode, in partial or unspecified remission 296.35 ; Insomnia, unspecified 780.52 and Generalized anxiety disorder 300.02 [facility] [address] [id number] [address] [place] [address] May, [facility] [address] [id number] [address] [place] [address] Apr, [facility] [address] [facility] [id number] [address] [place] [phone] Apr, Closed mallet fracture of di stal phalanx of ring finger 816.02 [facility] [address] [id number] [address] [place] [address] March, Depression, major, recurrent , moderate 296.32 ; Generalized anxiety disorder 300.02 and Borderline personality disorder 301.83 [facility] [address] [id number] [address] [place] [phone] Feb, [facility] [address] [facility] [id number] [address] [place] [phone] Feb, [facility] [address] [id number] [address] [place] [phone] Jan, [facility] [address] [id number] [address] [place] [address] Jan, [facility] [address] [facility] [id number] [address] [place] [address] Jan, [facility] [address] [facility] [id number] [address] [place] [address] Jan, [facility] [address] [id number] [address] [place] [phone] Jan, [facility] [address] [id number] [address] [place] [phone] Jan, [facility] [address] [facility] [id number] [address] [place] [id number] Dec, [facility] [address] [facility] [id number] [address] [place] [phone] Dec, [facility] [address] [id number] [address] [place] [address], [place] [address] Dec, [facility] [address] [id number] [address] [place] [address], [place] [address] Dec, [facility] [address] [id number] [address] [place] [address], [place] [address] Nov, [facility] [address] [id number] [address] [place] [address], [place] [address] Nov, [facility] [address] [id number] [address] [place] [address], [place] [address] Nov, [facility] [address] [id number] [address] [place] [address], [place] [address] Nov, [facility] [address] [id number] [address] [place] [address], [place] [address] Nov, [facility] [address] [id number] [address] [place] [address], [place] [address] Nov, [facility] [address] [id number] [address] [place] [address], [place] [address] Oct, [facility] [address] [id number] [address] [place] [address], [place] [address] Oct, [facility] [address] [id number] [address] [place] [address], [place] [address] Oct, [facility] [address] [id number] [address] [place] [phone] Oct, [facility] [address] [id number] [address] [place] [address], [place] [address] Oct, [facility] [address] [id number] [address] [place] [address], [place] [address] Oct, [facility] [address] [id number] [address] [place] [address], [place] [address] Sep, [facility] [address] [id number] [address] [place] [phone] Sep, [facility] [address] [id number] [address] [place] [address], [place] [address] Sep, [facility] [address] [id number] [address] [place] [address], [place] [address] Sep, [facility] [address] [id number] [address] [place] [address], [place] [address] Aug, [facility] [address] [id number] [address] [place] [address], [place] [address] Aug, [facility] [address] [id number] [address] [place] [address], [place] [address] Apr, [facility] [address] [id number] [address] [place] [address], [place] [address] Apr, [facility] [address] [id number] [address] [place] [address], [place] [address] Apr, [facility] [address] [id number] [address] [place] [address], [place] [address] Apr, [facility] [address] [id number] [address] [place] [address], [place] [address] Apr, [facility] [address] [id number] [address] [place] [address], [place] [address] Apr, [facility] [address] [id number] [address] [place] [address], [place] [address] March, [facility] [address] [id number] [address] [place] [address], [place] [address] March, [facility] [address] [id number] [address] [place] [address], [place] [address] Dec, [facility] [address] [id number] [address] [place] [address], [place] [address] Dec, [facility] [address] [id number] [address] [place] [address], [place] [address] Sep, [facility] [address] [id number] [address] [place] [address], [place] [address] 08 Sep, 2013 [facility] [address] [id number] [address] [place] [address], [place] [address] Aug, [facility] [address] [id number] [address] [place] [address], [place] [address] Aug, [facility] [address] [id number] [address] [place] [address], [place] [address] Aug, [facility] [address] [id number] [address] [place] [address], [place] [address] Aug, [facility] [address] [id number] [address] [place] [address], [place] [address] Aug, [facility] [address] [id number] [address] [place] [address], [place] [address] Aug, [facility] [address] [id number] [address] [place] [address], [place] [address] Aug, [facility] [address] [id number] [address] [place] [address], [place] [address] Aug, [facility] [address] [id number] [address] [place] [address], [place] [address] Aug, [facility] [address] [id number] [address] [place] [address], [place] [address] Aug, [facility] [address] [id number] [address] [place] [address], [place] [address] 27 Jul, 2013 [facility] [address] [id number] [address] [place] [address], [place] [address] 19 Jul, 2013 [facility] [address] [id number] [address] [place] [address], [place] [address] 05 Jul, 2013 [facility] [address] [id number] [address] [place] [address], [place] [address] Jun, [facility] [address] [id number] [address] [place] [address], [place] [address] May, [facility] [address] [id number] [address] [place] [address], [place] [address] May, [facility] [address] [id number] [address] [place] [address], [place] [address] May, [facility] [address] [id number] [address] [place] [address], [place] [address] Apr, [facility] [address] [id number] [address] [place] [address], [place] [address] March, [facility] [address] [id number] [address] [place] [address], [place] [address] March, [facility] [address] [id number] [address] [place] [address], [place] [address] Feb, [facility] [address] [id number] [address] [place] [address], [place] [address] Feb, [facility] [address] [id number] [address] [place] [address], [place] [address] Feb, [facility] [address] [id number] [address] [place] [address], [place] [address] Feb, [facility] [address] [id number] [address] [place] [address], [place] [address] Jan, [facility] [address] [id number] [address] [place] [address], [place] [address] Jan, [facility] [address] [id number] [address] [place] [address], [place] [address] Jan, [facility] [address] [id number] [address] [place] [address], [place] [address] Jan, [facility] [address] [id number] [address] [place] [address], [place] [address] Dec, [facility] [address] [id number] [address] [place] [address], [place] [address] Dec, [facility] [address] [id number] [address] [place] [address], [place] [address] Dec, [facility] [address] [id number] [address] [place] [address], [place] [address] Nov, [facility] [address] [id number] [address] [place] [address], [place] [address] Nov, [facility] [address] [id number] [address] [place] [address], [place] [address] Nov, [facility] [address] [id number] [address] [place] [address], [place] [address] Nov, [facility] [facility] [address] [id number] [address] [place] [address], [place] [address] Oct, [facility] [address] [id number] [address] [place] [address], [place] [address] Oct, [facility] [address] [id number] [address] [place] [address], [place] [address] Oct, [facility] [address] [id number] [address] [place] [address], [place] [address] Oct, [facility] [address] [id number] [address] [place] [address], [place] [address] Sep, [facility] [address] [id number] [address] [place] [address], [place] [address] Sep, [facility] [address] [id number] [address] [place] [address], [place] [address] Sep, [facility] [address] [id number] [address] [place] [address], [place] [address] Sep, [facility] [address] [id number] [address] [place] [address], [place] [address] Aug, [facility] [address] [id number] [address] [place] [address], [place] [address] Aug, [facility] [address] [id number] [address] [place] [address], [place] [address] Aug, [facility] [address] [id number] [address] [place] [address], [place] [address] Jul, [facility] [address] [id number] [address] [place] [address], [place] [address] Jun, [facility] [address] [id number] [address] [place] [address], [place] [address] May, [facility] [address] [id number] [address] [place] [address], [place] [address] May, [facility] [address] [id number] [address] [place] [address], [place] [address] May, [facility] [address] [id number] [address] [place] [address], [place] [address] March, [facility] [address] [id number] [address] [place] [address], [place] [address] March, [facility] [address] [id number] [address] [place] [address], [place] [address] Feb, [facility] [address] [id number] [address] [place] [address], [place] [address] Feb, [facility] [address] [id number] [address] [place] [address], [place] [address] Feb, [facility] [address] [id number] [address] [place] [address], [place] [address] 17 Feb, 2012 [facility] [address] [id number] [address] [place] [address], [place] [address] 16 Feb, 2012 [facility] [address] [id number] [address] [place] [address], [place] [address] Feb, [facility] [address] [id number] [address] [place] [address], [place] [address] 09 Feb, 2012 [facility] [address] [id number] [address] [place] [address], [place] [address] Feb, [facility] [address] [id number] [address] [place] [address] Dec, [facility] [address] [id number] [address] [place] [address], [place] [address] Nov, [facility] [address] [id number] [address] [place] [address] 2011 [facility] [address] [id number] [address] [place] [address], [place] [address] Nov, [facility] [address] [id number] [address] [place] [address], [place] [address] Nov, [facility] [address] [id number] [address] [place] [address], [place] [address] Nov, [facility] [address] [id number] [address] [place] [address], [place] [address] Nov, [facility] [address] [id number] [address] [place] [address] Oct, [facility] [address] [id number] [address] [place] [address], [place] [address] Sep, [facility] [address] [id number] [address] [place] [address], [place] [address] Sep, [facility] [address] [id number] [address] [place] [address] Sep, [facility] [address] [id number] [address] [place] [address], [place] [address] Sep, [facility] [address] [id number] [address] [place] [address] Aug, [facility] [address] [id number] [address] [place] [address], [place] [address] Aug, [facility] [address] [id number] [address] [place] [address], [place] [address] Aug, [facility] [address] [id number] [address] [place] [address], [place] [address] Aug, [facility] [address] [id number] [address] [place] [address] Aug, [facility] [address] [id number] [address] [place] [address] Aug, [facility] [address] [id number] [address] [place] [address] Aug, [facility] [address] [id number] [address] [place] [address] Aug, [facility] [address] [id number] [address] [place] [address] Aug, [facility] [address] [id number] [address] [place] [address] Jul, [facility] [address] [facility] [id number] [address] [place] [address] May, IMMUNIZATIONS No Known Immunizations SOCIAL HISTORY [...]
--- OUTSIDE RECORDS SUMMARY | 2020-02-07 09:17 | XMS REPORT ---
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 Active 675150583 Problem Hypercholesterolemia E78.0 Active 40508986 Problem Secondary hypertension I15.9 Active 57536153 Problem Acquired hypothyroidism E03.9 Active 849821704 Problem Anxiety F41.9 Active 72323908 Problem Tingling in extremities R20.2 Active 94239448 Problem Personality disorder in adult F60.9 Active 42689551 Problem Generalized anxiety disorder F41.1 A ctive 24343160 Problem Gastroesophageal reflux disease without esophagitis K21.9 Active 937230022 Problem Environmental allergies Z91.09 Active 497192788 Problem Hypothyroidism (acquired) E03.9 Acti ve 943542460 Problem Acute eczema L30.9 Active 2220912 02 Problem Depression, unspecified depression type F32.9 Active 10832840 Problem Major depressive disorder, recurrent, moderate F33 .1 Active 58455637 Problem Drug-induced erectile dysfunction N52.2 Active 519663573 Problem Acute left-sided low back pain with left-sided sciatica M54.42 Active 435249328 Problem Primary insomnia F51.01 Active 397 2004 ALLERGIES No Information ENCOUNTERS Encounter Location Date Diagnosis [facility] [address] [facility] [id number] [address] [place] [address] Apr, [facility] [address] [id number] [address] [place] [address] March, [facility] [address] [id number] [address] [place] [address] Feb, Generalized anxiety disorder F41.1 ; Major depressive disorder, recurrent, moderate F33.1 and Personality disorder in adult F60.9 [facility] [address] [id number] [address] [place] [address] Jan, [facility] [address] [id number] [address] [place] [address] Dec, [facility] [address] [id number] [address] [place] [address] Dec, Acquired hypothyroidism E03. 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 9 [facility] [address] [id number] [address] [place] [address] Nov, Generalized anxiety disorder F41.1 ; Major depressive disorder, recurrent, moderate F33.1 ; Personality disorder in adult F60.9 and Other residential (current) drug therapy Z79.899 [facility] [address] [id number] [address] [place] [address] Nov, [facility] [address] [id number] [address] [place] [address] Oct, [facility] [address] [id number] [address] [place] [address] Sep, Generalized anxiety disorder F41.1 ; Major depressive disorder, recurrent, moderate F33.1 and Personality disorder in adult F60.9 [facility] [address] [id number] [address] [place] [address] Aug, [facility] [address] [id number] [address] [place] [address] Aug, [facility] [address] [facility] [id number] [address] [place] [address] Jul, Generalized anxiety disorder F41.1 [facility] [address] [facility] [id number] [address] [place] [address] Jul, [facility] [address] [facility] [id number] [address] [place] [address] Jul, Acquired hypothyroidism E03. 9 [facility] [address] [facility] [id number] [address] [place] [address] Jul, Generalized anxiety disorder F41.1 [place] [address] [facility] [id number] [address] [place] [address] 04 Jul, 2018 Generalized anxiety disorder F41.1 ; Major depressive disorder, recurrent, moderate F33.1 and Personality disorder in adult F60.9 [facility] [address] [address] Jun, Generalized anxiety disorder F41.1 ; Major depressive disorder, recurrent, moderate F33.1 ; Primary insomnia F51.01 and Personality disorder in adult F60.9 [facility] [address] [place] [id number] [address] [place] [address] May, Acquired hypothyroidism E03. 9 [facility] [address] [facility] [id number] [address] [place] [address] May, Hypothyroidism (acquired) E0 3.9 and Gastroesophageal reflux disease without esophagitis K21.9 [facility] [address] [facility] [id number] [address] [place] [address] Apr, [facility] [address] [facility] [id number] [address] [place] [address] Apr, Skin infection L08.9 [facility] [address] [facility] [id number] [address] [place] [address] 05 Apr, 2018 Generalized anxiety disorder F41.1 ; Major depressive disorder, recurrent, moderate F33.1 ; Primary insomnia F51.01 and Personality disorder in adult F60.9 [facility] [address] [facility] [id number] [address] [place] [address] March, Generalized anxiety disorder F41.1 ; Major depressive disorder, recurrent, moderate F33.1 and Personality disorder in adult F60.9 [facility] [address] [facility] [id number] [address] [place] [address] Feb, [facility] [address] [facility] [id number] [address] [place] [address] Dec, Generalized anxiety disorder F41.1 ; Major depressive disorder, recurrent, moderate F33.1 and Personality disorder in adult F60.9 [facility] [address] [facility] [id number] [address] [place] [address] 06 Dec, 2017 Acute left-sided low back pa in with left-sided sciatica M54.42 [facility] [address] [facility] [id number] [address] [place] [address] Nov, [facility] [address] [facility] [id number] [address] [place] [address] Oct, Generalized anxiety disorder F41.1 ; Major depressive disorder, recurrent, moderate F33.1 and Personality disorder in adult F60.9 [facility] [address] [facility] [id number] [address] [place] [address] 24 Sep, 2017 Acquired hypothyroidism E03. 9 ; Hypercholesterolemia E78.0 ; Generalized anxiety disorder F41.1 and Drug-induced erectile dysfunction N52.2 [facility] [address] [facility] [id number] [address] [place] [address] Sep, [facility] [address] [facility] [id number] [address] [place] [address] Sep, Acquired hypothyroidism E03. 9 ; Hypercholesterolemia E78.0 ; Generalized anxiety disorder F41.1 and Drug-induced erectile dysfunction N52.2 [facility] [address] [facility] [id number] [address] [place] [address] 07 Sep, 2017 Generalized anxiety disorder F41.1 ; Major depressive disorder, recurrent, moderate F33.1 and Personality disorder in adult F60.9 [facility] [address] [id number] [address] [place] [id number] Aug, Dental examination Z01.20 [facility] [address] [id number] [address] [place] [id number] 24 Aug, 2017 Dental caries K02.9 [facility] [address] [id number] [address] [place] [address] Aug, [facility] [address] [id number] [address] [place] [id number] Aug, Dental examination Z01.20 [facility] [address] [id number] [address] [place] [address] Jul, Major depressive disorder, r ecurrent, moderate F33.1 [facility] [address] [id number] [address] [place] [address] Jul, Generalized anxiety disorder F41.1 ; Major depressive disorder, recurrent, moderate F33.1 and Personality disorder in adult F60.9 [facility] [address] [id number] [address] [place] [address] Jul, Generalized anxiety disorder F41.1 ; Major depressive disorder, recurrent, moderate F33.1 and Personality disorder in adult F60.9 [facility] [address] [id number] [address] [place] [address] Jun, Generalized anxiety disorder F41.1 ; Major depressive disorder, recurrent, moderate F33.1 and Personality disorder in adult F60.9 [facility] [address] [id number] [address] [place] [address] Apr, Generalized anxiety disorder F41.1 ; Major depressive disorder, recurrent, moderate F33.1 and Personality disorder in adult F60.9 [facility] [address] [id number] [address] [place] [address] March, Acquired hypothyroidism E03. 9 [facility] [address] [id number] [address] [place] [address] March, Acquired hypothyroidism E03. 9 and Left lower quadrant pain R10.32 [place] [address] [address] March, Hypercholesterolemia E78.0 ; Acquired hypothyroidism E03.9 ; Insomnia, unspecified type G47.00 ; Secondary hypertension I15.9 ; Gastroesophageal reflux disease, esophagitis presence not specified K21.9 ; Tingling in extremities R20.2 ; Environmental allergies Z91.09 ; Depression, unspecified depression type F32.9 and Left lower quadrant pain R10.32 [place] [address] [address] Feb, High risk sexual behavior Z7 2.51 [place] [address] [address] Feb, Major depressive disorder, r ecurrent, moderate F33.1 and Generalized anxiety disorder F41.1 [place] [address] [address] Dec, Major depressive disorder, r ecurrent, moderate F33.1 [place] [address] [address] 17 Dec, 2016 [place] [address] [address] 16 Dec, 2016 Acquired hypothyroidism E03. 9 and High risk sexual behavior Z72.51 [place] [address] [address] 07 Dec, 2016 Major depressive disorder, r ecurrent, moderate F33.1 and Generalized anxiety disorder F41.1 [place] [address] [place] [id number] 07 Dec, 2016 Acquired hypothyroidism E03. 9 ; Secondary hypertension I15.9 and Acute eczema L30.[address] [address] Nov, Acquired hypothyroidism E03. 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 ; Hypercholesterolemia E78.0 ; Gastroesophageal reflux disease, esophagitis presence not specified K21.9 ; Anxiety F41.9 and Secondary hypertension I15.9 [place] [address] [address] Oct, Major depressive disorder, r ecurrent, moderate F33.1 and Generalized anxiety disorder F41.1 [place] [address] [address] Aug, [place] [address] [place] [address] Aug, Insomnia, unspecified type G 47.00 ; Acquired hypothyroidism E03.9 ; Hypercholesterolemia E78.0 and Gastroesophageal reflux disease, esophagitis presence not specified K21.9 [place] [address] [address] Jul, [place] [address] [address] Jul, Major depressive disorder, r ecurrent, in partial remission F33.41 and Generalized anxiety disorder F41.1 [place] [address] [address] Jun, [place] [address] [address] Jun, Cervical pain (neck) M54.2 a nd Cervical neuropathic pain M54.12 [place] [address] [place] [id number] [place] [address] Apr, Insomnia, unspecified type G 47.00 ; Acquired hypothyroidism E03.9 ; Hypercholesterolemia E78.0 ; 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 ; Depression, unspecified depression type F32.9 ; 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 ; Gastroesophageal reflux disease, esophagitis presence not specified K21.9 ; Anxiety F41.9 ; Secondary hypertension I15.9 and Post- nasal drainage R09.82 [facility] [address] [address] Apr, [facility] [address] [address] March, [facility] [address] [address] March, Unspecified hypothyroidism 2 44.9 and HTN (hypertension) 401.9 [facility] [address] [address] March, [facility] [address] [address] Dec, [facility] [address] [address] Nov, [facility] [address] [address] Sep, Generalized anxiety disorder F41.1 and Major depressive disorder, recurrent, in partial remission F33.41 [place] [address] [address] Jun, Unspecified hypothyroidism 2 44.9 ; Sciatica 724.3 ; Major depressive disorder, recurrent episode, in partial or unspecified remission 296.35 ; Combined hyperlipidemia 272.2 ; HTN (hypertension) 401.9 ; Hidrosis 780.8 ; Cat allergies 477.8 and Environmental allergies V15.09 [facility] [address] [place] [id number] [address] [place] [address] Jun, Major depressive disorder, r ecurrent episode, in partial or unspecified remission 296.35 ; Insomnia, unspecified 780.52 and Generalized anxiety disorder 300.02 [facility] [address] [place] [id number] [address] [place] [address] May, [facility] [address] [address] Apr, [facility] [address] [id number] [address] [place] [address] Apr, Closed mallet fracture of di stal phalanx of ring finger 816.02 [facility] [address] [id number] [address] [place] [address] March, Depression, major, recurrent , moderate 296.32 ; Generalized anxiety disorder 300.02 and Borderline personality disorder 301.83 [facility] [address] [id number] [address] [place] [address] Feb, [facility] [address] [id number] [address] [place] [address] Feb, [facility] [address] [id number] [address] [place] [address] Jan, [facility] [address] [facility] [id number] [address] [place] [address] Jan, [facility] [address] [id number] [address] [place] [address] Jan, [facility] [address] [id number] [address] [place] [address] Jan, [facility] [address] [facility] [id number] [address] [place] [address] Jan, [facility] [address] [id number] [address] [place] [address] Jan, [facility] [address] [id number] [address] [place] [address] Dec, [facility] [address] [id number] [address] [place] [address] Dec, [facility] [address] [facility] [id number] [address] [place] [address] Dec, [facility] [address] [facility] [id number] [address] [place] [address] Dec, [facility] [address] [id number] [address] [place] [address], [place] [address] Nov, [facility] [address] [id number] [address] [place] [address], [place] [address] Nov, [facility] [address] [id number] [address] [place] [address], [place] [address] Nov, [facility] [address] [id number] [address] [place] [address], [place] [address] Nov, [facility] [address] [id number] [address] [place] [address], [place] [address] Nov, [facility] [address] [id number] [address] [place] [address], [place] [address] Nov, [facility] [address] [id number] [address] [place] [address], [place] [address] Oct, [facility] [address] [id number] [address] [place] [address], [place] [address] Oct, [facility] [address] [id number] [address] [place] [address], [place] [address] Oct, [facility] [address] [id number] [address] [place] [address], [place] [address] Oct, [facility] [address] [id number] [address] [place] [address], [place] [address] Oct, [facility] [address] [id number] [address] [place] [address], [place] [address] Oct, [facility] [address] [id number] [address] [place] [address], [place] [address] Sep, [facility] [address] [id number] [address] [place] [address], [place] [address] Sep, [facility] [address] [id number] [address] [place] [address], [place] [address] Sep, [facility] [address] [id number] [address] [place] [address], [place] [address] Sep, [facility] [address] [id number] [address] [place] [address], [place] [address] Aug, [facility] [address] [id number] [address] [place] [address], [place] [address] Aug, [facility] [address] [id number] [address] [place] [address], [place] [address] Apr, [facility] [address] [id number] [address] [place] [address], [place] [address] Apr, [facility] [address] [id number] [address] [place] [address], [place] [address] Apr, [facility] [address] [id number] [address] [place] [address], [place] [address] 17 Apr, 2014 [facility] [address] [id number] [address] [place] [address], [place] [address] Apr, [facility] [address] [id number] [address] [place] [address], [place] [address] Apr, [facility] [address] [id number] [address] [place] [address], [place] [address] March, [facility] [address] [id number] [address] [place] [address], [place] [address] March, [facility] [address] [id number] [address] [place] [address], [place] [address] Dec, [facility] [address] [id number] [address] [place] [address], [place] [address] Dec, [facility] [address] [id number] [address] [place] [address], [place] [address] Sep, [facility] [address] [id number] [address] [place] [address], [place] [address] Sep, [facility] [address] [id number] [address] [place] [address], [place] [address] Aug, [facility] [address] [id number] [address] [place] [address], [place] [address] Aug, [facility] [address] [id number] [address] [place] [address], [place] [address] Aug, 2012 [facility] [address] [id number] [address] [place] [address], [place] [address] Aug, 2012 [facility] [address] [id number] [address] [place] [address], [place] [address] Aug, 2012 [facility] [address] [id number] [address] [place] [address], [place] [address] Aug, 2012 [facility] [address] [id number] [address] [place] [address], [place] [address] Aug, [facility] [address] [id number] [address] [place] [address], [place] [address] Aug, [facility] [address] [id number] [address] [place] [address], [place] [address] Aug, [facility] [address] [id number] [address] [place] [address], [place] [address] Aug, [facility] [address] [id number] [address] [place] [address], [place] [address] Jul, [facility] [address] [id number] [address] [place] [address], [place] [address] Jul, [facility] [address] [id number] [address] [place] [address], [place] [address] 05 Jul, 2013 [facility] [address] [id number] [address] [place] [address], [place] [address] Jun, [facility] [address] [id number] [address] [place] [address], [place] [address] May, [facility] [address] [id number] [address] [place] [address], [place] [address] May, [facility] [address] [id number] [address] [place] [address], [place] [address] May, [facility] [address] [id number] [address] [place] [address], [place] [address] Apr, [facility] [address] [id number] [address] [place] [address], [place] [address] March, [facility] [address] [id number] [address] [place] [address], [place] [address] March, [facility] [address] [id number] [address] [place] [address], [place] [address] Feb, [facility] [address] [id number] [address] [place] [address], [place] [address] Feb, [facility] [address] [id number] [address] [place] [address], [place] [address] Feb, [facility] [address] [id number] [address] [place] [address], [place] [address] Feb, [facility] [address] [id number] [address] [place] [address], [place] [address] Jan, [facility] [address] [id number] [address] [place] [address], [place] [address] Jan, [facility] [address] [id number] [address] [place] [address], [place] [address] Jan, [facility] [address] [id number] [address] [place] [address], [place] [address] Jan, [facility] [address] [id number] [address] [place] [address], [place] [address] Dec, [facility] [address] [id number] [address] [place] [address], [place] [address] Dec, [facility] [address] [id number] [address] [place] [address], [place] [address] Dec, [facility] [address] [id number] [address] [place] [address], [place] [address] Nov, [facility] [address] [id number] [address] [place] [address], [place] [address] 08 Nov, 2012 [facility] [address] [id number] [address] [place] [address], [place] [address] Nov, [facility] [address] [id number] [address] [place] [address], [place] [address] Nov, [facility] [address] [id number] [address] [place] [address], [place] [address] Oct, [facility] [address] [id number] [address] [place] [address], [place] [address] Oct, [facility] [facility] [address] [id number] [address] [place] [address], [place] [address] Oct, [facility] [address] [id number] [address] [place] [address], [place] [address] Oct, [facility] [address] [id number] [address] [place] [address], [place] [address] Sep, [facility] [address] [id number] [address] [place] [address], [place] [address] Sep, [facility] [address] [id number] [address] [place] [address], [place] [address] Sep, [facility] [address] [id number] [address] [place] [address], [place] [address] Sep, [facility] [address] [id number] [address] [place] [address], [place] [address] Aug, [facility] [address] [id number] [address] [place] [address], [place] [address] Aug, [facility] [address] [id number] [address] [place] [address], [place] [address] Aug, [facility] [address] [id number] [address] [place] [address], [place] [address] Jul, [facility] [address] [id number] [address] [place] [address], [place] [address] Jun, [facility] [address] [id number] [address] [place] [address], [place] [address] May, [facility] [address] [id number] [address] [place] [address], [place] [address] May, [facility] [address] [id number] [address] [place] [address], [place] [address] May, [facility] [address] [id number] [address] [place] [address], [place] [address] March, [facility] [address] [id number] [address] [place] [address], [place] [address] March, [facility] [address] [id number] [address] [place] [address], [place] [address] Feb, [facility] [address] [id number] [address] [place] [address], [place] [address] Feb, [facility] [address] [id number] [address] [place] [address], [place] [address] Feb, [facility] [address] [id number] [address] [place] [address], [place] [address] Feb, [facility] [address] [id number] [address] [place] [address], [place] [address] Feb, [facility] [address] [id number] [address] [place] [address], [place] [address] Feb, [facility] [address] [id number] [address] [place] [address], [place] [address] Feb, [facility] [address] [id number] [address] [place] [address], [place] [address] Feb, [facility] [address] [id number] [address] [place] [address], [place] [address] Dec, [facility] [address] [id number] [address] [place] [address], [place] [address] Nov, [facility] [address] [id number] [address] [address] 2011 [facility] [address] [id number] [address] [place] [address], [place] [address] Nov, [facility] [address] [id number] [address] [place] [address], [place] [address] Nov, [facility] [address] [id number] [address] [place] [address] Nov, [facility] [address] [id number] [address] [place] [address] Nov, [facility] [address] [id number] [address] [place] [address], [place] [address] Oct, [facility] [address] [id number] [address] [place] [address] Sep, [facility] [address] [id number] [address] [place] [address], [place] [address] Sep, [facility] [address] [id number] [address] [place] [address] Sep, [facility] [address] [id number] [address] [place] [address], [place] [address] Sep, [facility] [address] [id number] [address] [place] [address], [place] [address] Aug, [facility] [address] [id number] [address] [place] [address] Aug, [facility] [address] [id number] [address] [place] [address] Aug, [facility] [address] [id number] [address] [place] [address], [place] [address] Aug, [facility] [address] [id number] [address] [place] [address], [place] [address] Aug, [facility] [address] [id number] [address] [place] [address] Aug, [facility] [address] [id number] [address] [place] [address] Aug, [facility] [address] [facility] [id number] [address] [place] [address] Aug, [facility] [address] [facility] [id number] [address] [place] [address] Aug, [facility] [address] [facility] [id number] [address] [place] [address] Jul, [facility] [address] [facility] [id number] [address] [place] [address] May, IMMUNIZATIONS No Known Immunizations SOCIAL HISTORY Never Assessed REASON FOR VISIT PLAN OF CARE VITAL SIGNS Height 68 in 2014-10-17 Weight 229.2 lbs 2014-10-17 Heart Rate 74 bpm 2014-10-17 Respiratory Rate 20 2014-10-17 Blood pressure systolic 118 mmHg 2014-10-17 Blood pressure diastolic 74 mmHg 2014-10-17 MEDICATIONS Unknown Medications RESULTS No Results PROCEDURES [...]
--- OUTSIDE RECORDS SUMMARY | 2020-02-07 09:17 | XMS REPORT ---
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 Active 790616027 Problem Hypercholesterolemia E78.0 Active 15329950 Problem Secondary hypertension I15.9 Active 64256281 Problem Acquired hypothyroidism E03.9 Active 537649918 Problem Anxiety F41.9 Active 65524323 Problem Tingling in extremities R20.2 Active 00090000 Problem Personality disorder in adult F60.9 Active 62240149 Problem Generalized anxiety disorder F41.1 A ctive 40281062 Problem Gastroesophageal reflux disease without esophagitis K21.9 Active 695814574 Problem Environmental allergies Z91.09 Active 929014340 Problem Hypothyroidism (acquired) E03.9 Acti ve 367218220 Problem Acute eczema L30.9 Active 4767476 02 Problem Depression, unspecified depression type F32.9 Active 96872999 Problem Major depressive disorder, recurrent, moderate F33 .1 Active 31073285 Problem Drug-induced erectile dysfunction N52.2 Active 406289785 Problem Acute left-sided low back pain with left-sided sciatica M54.42 Active 951750025 Problem Primary insomnia F51.01 Active 397 2004 ALLERGIES No Information ENCOUNTERS Encounter Location Date Diagnosis [facility] [address] [facility] [id number] [address] [place] [address] Apr, [facility] [address] [id number] [address] [place] [address] March, [facility] [address] [id number] [address] [place] [address] Feb, Generalized anxiety disorder F41.1 ; Major depressive disorder, recurrent, moderate F33.1 and Personality disorder in adult F60.9 [facility] [address] [id number] [address] [place] [address] Jan, [facility] [address] [id number] [address] [place] [address] Dec, [facility] [address] [id number] [address] [place] [address] Dec, Acquired hypothyroidism E03. 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 9 [facility] [address] [id number] [address] [place] [address] Nov, Generalized anxiety disorder F41.1 ; Major depressive disorder, recurrent, moderate F33.1 ; Personality disorder in adult F60.9 and Other jail (current) drug therapy Z79.899 [facility] [address] [id number] [address] [place] [address] Nov, [facility] [address] [id number] [address] [place] [address] Oct, [facility] [address] [id number] [address] [place] [address] Sep, Generalized anxiety disorder F41.1 ; Major depressive disorder, recurrent, moderate F33.1 and Personality disorder in adult F60.9 [facility] [address] [id number] [address] [place] [address] Aug, [facility] [address] [id number] [address] [place] [address] Aug, [facility] [address] [facility] [id number] [address] [place] [address] Jul, Generalized anxiety disorder F41.1 [facility] [address] [facility] [id number] [address] [place] [address] Jul, [facility] [address] [facility] [id number] [address] [place] [address] Jul, Acquired hypothyroidism E03. 9 [facility] [address] [facility] [id number] [address] [place] [address] Jul, Generalized anxiety disorder F41.1 [place] [address] [facility] [id number] [address] [place] [address] 04 Jul, 2018 Generalized anxiety disorder F41.1 ; Major depressive disorder, recurrent, moderate F33.1 and Personality disorder in adult F60.9 [facility] [address] [address] Jun, Generalized anxiety disorder F41.1 ; Major depressive disorder, recurrent, moderate F33.1 ; Primary insomnia F51.01 and Personality disorder in adult F60.9 [facility] [address] [place] [id number] [address] [place] [address] May, Acquired hypothyroidism E03. 9 [facility] [address] [facility] [id number] [address] [place] [address] May, Hypothyroidism (acquired) E0 3.9 and Gastroesophageal reflux disease without esophagitis K21.9 [facility] [address] [facility] [id number] [address] [place] [address] Apr, [facility] [address] [facility] [id number] [address] [place] [address] Apr, Skin infection L08.9 [facility] [address] [facility] [id number] [address] [place] [address] 05 Apr, 2018 Generalized anxiety disorder F41.1 ; Major depressive disorder, recurrent, moderate F33.1 ; Primary insomnia F51.01 and Personality disorder in adult F60.9 [facility] [address] [facility] [id number] [address] [place] [address] March, Generalized anxiety disorder F41.1 ; Major depressive disorder, recurrent, moderate F33.1 and Personality disorder in adult F60.9 [facility] [address] [facility] [id number] [address] [place] [address] Feb, [facility] [address] [facility] [id number] [address] [place] [address] Dec, Generalized anxiety disorder F41.1 ; Major depressive disorder, recurrent, moderate F33.1 and Personality disorder in adult F60.9 [facility] [address] [facility] [id number] [address] [place] [address] 06 Dec, 2017 Acute left-sided low back pa in with left-sided sciatica M54.42 [facility] [address] [facility] [id number] [address] [place] [address] Nov, [facility] [address] [facility] [id number] [address] [place] [phone] Oct, Generalized anxiety disorder F41.1 ; Major depressive disorder, recurrent, moderate F33.1 and Personality disorder in adult F60.9 [facility] [address] [facility] [id number] [address] [place] [address] 24 Sep, 2017 Acquired hypothyroidism E03. 9 ; Hypercholesterolemia E78.0 ; Generalized anxiety disorder F41.1 and Drug-induced erectile dysfunction N52.2 [facility] [address] [facility] [id number] [address] [place] [address] Sep, [facility] [address] [facility] [id number] [address] [place] [address] Sep, Acquired hypothyroidism E03. 9 ; Hypercholesterolemia E78.0 ; Generalized anxiety disorder F41.1 and Drug-induced erectile dysfunction N52.2 [facility] [address] [facility] [id number] [address] [place] [address] 07 Sep, 2017 Generalized anxiety disorder F41.1 ; Major depressive disorder, recurrent, moderate F33.1 and Personality disorder in adult F60.9 [facility] [address] [id number] [address] [place] [id number] Aug, Dental examination Z01.20 [facility] [address] [id number] [address] [place] [id number] 24 Aug, 2017 Dental caries K02.9 [facility] [address] [id number] [address] [place] [address] Aug, [facility] [address] [id number] [address] [place] [id number] Aug, Dental examination Z01.20 [facility] [address] [id number] [address] [place] [address] Jul, Major depressive disorder, r ecurrent, moderate F33.1 [facility] [address] [id number] [address] [place] [address] Jul, Generalized anxiety disorder F41.1 ; Major depressive disorder, recurrent, moderate F33.1 and Personality disorder in adult F60.9 [facility] [address] [id number] [address] [place] [address] Jul, Generalized anxiety disorder F41.1 ; Major depressive disorder, recurrent, moderate F33.1 and Personality disorder in adult F60.9 [facility] [address] [id number] [address] [place] [address] Jun, Generalized anxiety disorder F41.1 ; Major depressive disorder, recurrent, moderate F33.1 and Personality disorder in adult F60.9 [facility] [address] [id number] [address] [place] [address] Apr, Generalized anxiety disorder F41.1 ; Major depressive disorder, recurrent, moderate F33.1 and Personality disorder in adult F60.9 [facility] [address] [id number] [address] [place] [address] March, Acquired hypothyroidism E03. 9 [facility] [address] [id number] [address] [place] [address] March, Acquired hypothyroidism E03. 9 and Left lower quadrant pain R10.32 [place] [address] [address] March, Hypercholesterolemia E78.0 ; Acquired hypothyroidism E03.9 ; Insomnia, unspecified type G47.00 ; Secondary hypertension I15.9 ; Gastroesophageal reflux disease, esophagitis presence not specified K21.9 ; Tingling in extremities R20.2 ; Environmental allergies Z91.09 ; Depression, unspecified depression type F32.9 and Left lower quadrant pain R10.32 [place] [address] [phone] Feb, High risk sexual behavior Z7 2.51 [place] [address] [address] Feb, Major depressive disorder, r ecurrent, moderate F33.1 and Generalized anxiety disorder F41.1 [place] [address] [address] Dec, Major depressive disorder, r ecurrent, moderate F33.1 [place] [address] [address] 17 Dec, 2016 [place] [address] [address] 16 Dec, 2016 Acquired hypothyroidism E03. 9 and High risk sexual behavior Z72.51 [place] [address] [address] 07 Dec, 2016 Major depressive disorder, r ecurrent, moderate F33.1 and Generalized anxiety disorder F41.1 [place] [address] [place] [id number] 07 Dec, 2016 Acquired hypothyroidism E03. 9 ; Secondary hypertension I15.9 and Acute eczema L30.[address] [address] Nov, Acquired hypothyroidism E03. 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 ; Hypercholesterolemia E78.0 ; Gastroesophageal reflux disease, esophagitis presence not specified K21.9 ; Anxiety F41.9 and Secondary hypertension I15.9 [place] [address] [address] Oct, Major depressive disorder, r ecurrent, moderate F33.1 and Generalized anxiety disorder F41.1 [place] [address] [address] Aug, [place] [address] [place] [address] Aug, Insomnia, unspecified type G 47.00 ; Acquired hypothyroidism E03.9 ; Hypercholesterolemia E78.0 and Gastroesophageal reflux disease, esophagitis presence not specified K21.9 [place] [address] [address] Jul, [place] [address] [address] Jul, Major depressive disorder, r ecurrent, in partial remission F33.41 and Generalized anxiety disorder F41.1 [place] [address] [address] Jun, [place] [address] [address] Jun, Cervical pain (neck) M54.2 a nd Cervical neuropathic pain M54.12 [place] [address] [place] [id number] [place] [address] Apr, Insomnia, unspecified type G 47.00 ; Acquired hypothyroidism E03.9 ; Hypercholesterolemia E78.0 ; 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 ; Depression, unspecified depression type F32.9 ; 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 ; Gastroesophageal reflux disease, esophagitis presence not specified K21.9 ; Anxiety F41.9 ; Secondary hypertension I15.9 and Post- nasal drainage R09.82 [facility] [address] [address] Apr, [facility] [address] [address] March, [facility] [address] [address] March, Unspecified hypothyroidism 2 44.9 and HTN (hypertension) 401.9 [facility] [address] [address] March, [facility] [address] [address] Dec, [facility] [address] [address] Nov, [facility] [address] [address] Sep, Generalized anxiety disorder F41.1 and Major depressive disorder, recurrent, in partial remission F33.41 [place] [address] [address] Jun, Unspecified hypothyroidism 2 44.9 ; Sciatica 724.3 ; Major depressive disorder, recurrent episode, in partial or unspecified remission 296.35 ; Combined hyperlipidemia 272.2 ; HTN (hypertension) 401.9 ; Hidrosis 780.8 ; Cat allergies 477.8 and Environmental allergies V15.09 [facility] [address] [place] [id number] [address] [place] [address] Jun, Major depressive disorder, r ecurrent episode, in partial or unspecified remission 296.35 ; Insomnia, unspecified 780.52 and Generalized anxiety disorder 300.02 [facility] [address] [place] [id number] [address] [place] [address] May, [facility] [address] [address] Apr, [facility] [address] [id number] [address] [place] [address] Apr, Closed mallet fracture of di stal phalanx of ring finger 816.02 [facility] [address] [id number] [address] [place] [address] March, Depression, major, recurrent , moderate 296.32 ; Generalized anxiety disorder 300.02 and Borderline personality disorder 301.83 [facility] [address] [id number] [address] [place] [address] Feb, [facility] [address] [id number] [address] [place] [address] Feb, [facility] [address] [id number] [address] [place] [address] Jan, [facility] [address] [facility] [id number] [address] [place] [address] Jan, [facility] [address] [id number] [address] [place] [phone] Jan, [facility] [address] [id number] [address] [place] [address] Jan, [facility] [address] [facility] [id number] [address] [place] [address] Jan, [facility] [address] [id number] [address] [place] [address] Jan, [facility] [address] [id number] [address] [place] [address] Dec, [facility] [address] [id number] [address] [place] [address] Dec, [facility] [address] [facility] [id number] [address] [place] [address] Dec, [facility] [address] [facility] [id number] [address] [place] [address] Dec, [facility] [address] [id number] [address] [place] [address], [place] [address] Nov, [facility] [address] [id number] [address] [place] [address], [place] [address] Nov, [facility] [address] [id number] [address] [place] [address], [place] [address] Nov, [facility] [address] [id number] [address] [place] [address], [place] [address] Nov, [facility] [address] [id number] [address] [place] [address], [place] [address] Nov, [facility] [address] [id number] [address] [place] [address], [place] [address] Nov, [facility] [address] [id number] [address] [place] [address], [place] [address] Oct, [facility] [address] [id number] [address] [place] [address], [place] [address] Oct, [facility] [address] [id number] [address] [place] [address], [place] [address] Oct, [facility] [address] [id number] [address] [place] [address], [place] [address] Oct, [facility] [address] [id number] [address] [place] [address], [place] [address] Oct, [facility] [address] [id number] [address] [place] [address], [place] [address] Oct, [facility] [address] [id number] [address] [place] [address], [place] [address] Sep, [facility] [address] [id number] [address] [place] [address], [place] [address] Sep, [facility] [address] [id number] [address] [place] [address], [place] [address] Sep, [facility] [address] [id number] [address] [place] [address], [place] [address] Sep, [facility] [address] [id number] [address] [place] [address], [place] [address] Aug, [facility] [address] [id number] [address] [place] [address], [place] [address] Aug, [facility] [address] [id number] [address] [place] [address], [place] [address] Apr, [facility] [address] [id number] [address] [place] [address], [place] [address] Apr, [facility] [address] [id number] [address] [place] [address], [place] [address] Apr, [facility] [address] [id number] [address] [place] [address], [place] [address] 17 Apr, 2014 [facility] [address] [id number] [address] [place] [address], [place] [address] Apr, [facility] [address] [id number] [address] [place] [address], [place] [address] Apr, [facility] [address] [id number] [address] [place] [address], [place] [address] March, [facility] [address] [id number] [address] [place] [address], [place] [address] March, [facility] [address] [id number] [address] [place] [address], [place] [address] Dec, [facility] [address] [id number] [address] [place] [address], [place] [address] Dec, [facility] [address] [id number] [address] [place] [address], [place] [address] Sep, [facility] [address] [id number] [address] [place] [address], [place] [address] Sep, [facility] [address] [id number] [address] [place] [address], [place] [address] Aug, [facility] [address] [id number] [address] [place] [address], [place] [address] Aug, [facility] [address] [id number] [address] [place] [address], [place] [address] Aug, 2012 [facility] [address] [id number] [address] [place] [address], [place] [address] Aug, 2012 [facility] [address] [id number] [address] [place] [address], [place] [address] Aug, 2012 [facility] [address] [id number] [address] [place] [address], [place] [address] Aug, 2012 [facility] [address] [id number] [address] [place] [address], [place] [address] Aug, [facility] [address] [id number] [address] [place] [address], [place] [address] Aug, [facility] [address] [id number] [address] [place] [address], [place] [address] Aug, [facility] [address] [id number] [address] [place] [address], [place] [address] Aug, [facility] [address] [id number] [address] [place] [address], [place] [address] Jul, [facility] [address] [id number] [address] [place] [address], [place] [address] Jul, [facility] [address] [id number] [address] [place] [address], [place] [address] 05 Jul, 2013 [facility] [address] [id number] [address] [place] [address], [place] [address] Jun, [facility] [address] [id number] [address] [place] [address], [place] [address] May, [facility] [address] [id number] [address] [place] [address], [place] [address] May, [facility] [address] [id number] [address] [place] [address], [place] [address] May, [facility] [address] [id number] [address] [place] [address], [place] [address] Apr, [facility] [address] [id number] [address] [place] [address], [place] [address] March, [facility] [address] [id number] [address] [place] [address], [place] [address] March, [facility] [address] [id number] [address] [place] [address], [place] [address] Feb, [facility] [address] [id number] [address] [place] [address], [place] [id number] Feb, [facility] [address] [id number] [address] [place] [address], [place] [address] Feb, [facility] [address] [id number] [address] [place] [address], [place] [address] Feb, [facility] [address] [id number] [address] [place] [address], [place] [address] Jan, [facility] [address] [id number] [address] [place] [address], [place] [address] Jan, [facility] [address] [id number] [address] [place] [address], [place] [address] Jan, [facility] [address] [id number] [address] [place] [address], [place] [address] Jan, [facility] [address] [id number] [address] [place] [address], [place] [address] Dec, [facility] [address] [id number] [address] [place] [address], [place] [address] Dec, [facility] [address] [id number] [address] [place] [address], [place] [address] Dec, [facility] [address] [id number] [address] [place] [address], [place] [address] Nov, [facility] [address] [id number] [address] [place] [address], [place] [id number] 08 Nov, 2012 [facility] [address] [id number] [address] [place] [address], [place] [address] Nov, [facility] [address] [id number] [address] [place] [address], [place] [address] Nov, [facility] [address] [id number] [address] [place] [address], [place] [address] Oct, [facility] [address] [id number] [address] [place] [address], [place] [address] Oct, [facility] [address] [id number] [address] [place] [address], [place] [address] Oct, [facility] [address] [id number] [address] [place] [address], [place] [address] Oct, [facility] [address] [id number] [address] [place] [address], [place] [address] Sep, [facility] [address] [id number] [address] [place] [address], [place] [address] Sep, [facility] [address] [id number] [address] [place] [address], [place] [address] Sep, [facility] [address] [id number] [address] [place] [address], [place] [address] Sep, [facility] [address] [id number] [address] [place] [address], [place] [address] Aug, [facility] [address] [id number] [address] [place] [address], [place] [address] Aug, [facility] [address] [id number] [address] [place] [address], [place] [address] Aug, [facility] [address] [id number] [address] [place] [address], [place] [address] Jul, [facility] [address] [id number] [address] [place] [address], [place] [address] Jun, [facility] [address] [id number] [address] [place] [address], [place] [address] May, [facility] [address] [id number] [address] [place] [address], [place] [address] May, [facility] [address] [id number] [address] [place] [address], [place] [address] May, [facility] [address] [id number] [address] [place] [address], [place] [address] March, [facility] [address] [id number] [address] [place] [address], [place] [address] March, [facility] [address] [id number] [address] [place] [address], [place] [address] Feb, [facility] [address] [id number] [address] [place] [address], [place] [address] Feb, [facility] [address] [id number] [address] [place] [address], [place] [address] Feb, [facility] [address] [id number] [address] [place] [address], [place] [address] Feb, [facility] [address] [id number] [address] [place] [address], [place] [address] Feb, [facility] [address] [id number] [address] [place] [address], [place] [address] Feb, [facility] [address] [id number] [address] [place] [address], [place] [address] Feb, [facility] [address] [id number] [address] [place] [address], [place] [address] Feb, [facility] [address] [id number] [address] [place] [address], [place] [address] Dec, [facility] [address] [id number] [address] [place] [address], [place] [address] Nov, [facility] [address] [id number] [address] [address] 2011 [facility] [address] [id number] [address] [place] [address], [place] [address] Nov, [facility] [address] [id number] [address] [place] [address], [place] [address] Nov, [facility] [address] [id number] [address] [place] [address] Nov, [facility] [address] [id number] [address] [place] [id number] Nov, [facility] [address] [id number] [address] [place] [address], [place] [address] Oct, [facility] [address] [id number] [address] [place] [address] Sep, [facility] [address] [id number] [address] [place] [address], [place] [address] Sep, [facility] [address] [id number] [address] [place] [address] Sep, [facility] [address] [id number] [address] [place] [address], [place] [address] Sep, [facility] [address] [id number] [address] [place] [address], [place] [address] Aug, [facility] [address] [id number] [address] [place] [address] Aug, [facility] [address] [id number] [address] [place] [address] Aug, [facility] [address] [id number] [address] [place] [address], [place] [address] Aug, [facility] [address] [id number] [address] [place] [address], [place] [address] Aug, [facility] [address] [id number] [address] [place] [address] Aug, [facility] [address] [id number] [address] [place] [id number] Aug, [facility] [address] [facility] [id number] [address] [place] [id number] Aug, [facility] [address] [facility] [id number] [address] [place] [id number] Aug, [facility] [address] [facility] [id number] [address] [place] [id number] Jul, [facility] [address] [facility] [id number] [address] [place] [id number] May, IMMUNIZATIONS No Known Immunizations SOCIAL HISTORY [...]
--- OUTSIDE RECORDS SUMMARY | 2020-02-07 09:17 | XMS REPORT ---
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 74510206 Problem 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 Active 167375311 Problem Hypercholesterolemia E78.0 Active 72765505 Problem Secondary hypertension I15.9 Active 86891692 Problem Acquired hypothyroidism E03.9 Active 687042947 Problem Anxiety F41.9 Active 48866963 Problem Tingling in extremities R20.2 Active 65976865 Problem Personality disorder in adult F60.9 Active 67713425 Problem Generalized anxiety disorder F41.1 A ctive 76969023 Problem Gastroesophageal reflux disease without esophagitis K21.9 Active 393211296 Problem Environmental allergies Z91.09 Active 644039248 Problem Hypothyroidism (acquired) E03.9 Acti ve 946499123 Problem Acute eczema L30.9 Active 9565919 02 Problem Depression, unspecified depression type F32.9 Active 05335846 Problem Major depressive disorder, recurrent, moderate F33 .1 Active 95419205 Problem Drug-induced erectile dysfunction N52.2 Active 064645447 Problem Acute left-sided low back pain with left-sided sciatica M54.42 Active 399807337 Problem Primary insomnia F51.01 Active 397 2004 ALLERGIES No Information ENCOUNTERS Encounter Location Date Diagnosis [facility] [place] [address] [facility] [id number] [address] [place] [address] Apr, [facility] [place] [address] [facility] [id number] [address] [place] [address] March, [facility] [place] [address] [id number] [address] [place] [address] Feb, Generalized anxiety disorder F41.1 ; Major depressive disorder, recurrent, moderate F33.1 and Personality disorder in adult F60.9 [facility] [place] [address] [id number] [address] [place] [address] Jan, [facility] [place] [address] [id number] [address] [place] [address] Dec, [facility] [place] [address] [id number] [address] [place] [address] Dec, Acquired hypothyroidism E03. 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 [facility] [place] [address] [id number] [address] [place] [address] Nov, [facility] [place] [address] [id number] [address] [place] [address] Oct, [facility] [place] [address] [id number] [address] [place] [address] Sep, Generalized anxiety disorder F41.1 ; Major depressive disorder, recurrent, moderate F33.1 and Personality disorder in adult F60.9 [facility] [place] [address] [id number] [address] [place] [address] Aug, [facility] [place] [address] [facility] [id number] [address] [place] [address] Aug, [facility] [place] [address] [id number] [address] [place] [address] Jul, Generalized anxiety disorder F41.1 [facility] [place] [address] [facility] [id number] [address] [place] [id number] Jul, [facility] [place] [address] [facility] [id number] [address] [place] [address] Jul, Acquired hypothyroidism E03. 9 [facility] [place] [address] [facility] [id number] [address] [place] [address] 10 Jul, 2018 Generalized anxiety disorder F41.1 [facility] [place] [address] [place] [id number] [place] [address] 04 Jul, 2018 Generalized anxiety disorder F41.1 ; Major depressive disorder, recurrent, moderate F33.1 and Personality disorder in adult F60.9 [facility] [place] [address] [place] [id number] [place] [address] Jun, Generalized anxiety disorder F41.1 ; Major depressive disorder, recurrent, moderate F33.1 ; Primary insomnia F51.01 and Personality disorder in adult F60.9 [facility] [place] [address] [id number] [place] [address] May, Acquired hypothyroidism E03. 9 [facility] [place] [address] [facility] [id number] [place] [address] May, Hypothyroidism (acquired) E0 3.9 and Gastroesophageal reflux disease without esophagitis K21.9 [facility] [place] [address] [facility] [id number] [address] [place] [address] Apr, [facility] [address] [facility] [id number] [address] [place] [address] Apr, Skin infection L08.9 [facility] [place] [address] [facility] [id number] [address] [place] [address] Apr, Generalized anxiety disorder F41.1 ; Major depressive disorder, recurrent, moderate F33.1 ; Primary insomnia F51.01 and Personality disorder in adult F60.9 [facility] [place] [address] [facility] [id number] [address] [place] [address] March, Generalized anxiety disorder F41.1 ; Major depressive disorder, recurrent, moderate F33.1 and Personality disorder in adult F60.9 [facility] [place] [address] [facility] [id number] [address] [place] [address] Feb, [facility] [place] [address] [facility] [id number] [address] [place] [address] Dec, Generalized anxiety disorder F41.1 ; Major depressive disorder, recurrent, moderate F33.1 and Personality disorder in adult F60.9 [facility] [address] [facility] [id number] [address] [place] [address] Dec, Acute left-sided low back pa in with left-sided sciatica M54.42 [facility] [place] [address] [facility] [id number] [address] [place] [address] Nov, [facility] [place] [address] [facility] [id number] [address] [place] [address] Oct, Generalized anxiety disorder F41.1 ; Major depressive disorder, recurrent, moderate F33.1 and Personality disorder in adult F60.9 [facility] [place] [address] [facility] [id number] [address] [place] [address] Sep, Acquired hypothyroidism E03. 9 ; Hypercholesterolemia E78.0 ; Generalized anxiety disorder F41.1 and Drug-induced erectile dysfunction N52.2 [facility] [place] [address] [facility] [id number] [address] [place] [address] Sep, [facility] [place] [address] [facility] [id number] [address] [place] [address] Sep, Acquired hypothyroidism E03. 9 ; Hypercholesterolemia E78.0 ; Generalized anxiety disorder F41.1 and Drug-induced erectile dysfunction N52.2 [facility] [place] [address] [facility] [id number] [address] [place] [id number] 07 Sep, 2017 Generalized anxiety disorder F41.1 ; Major depressive disorder, recurrent, moderate F33.1 and Personality disorder in adult F60.9 [facility] [address] [id number] [address] [place] [id number] Aug, Dental examination Z01.20 [facility] [address] [id number] [address] [place] [id number] Aug, Dental caries K02.9 [facility] [place] [address] [id number] [address] [place] [address] Aug, [facility] [address] [id number] [address] [place] [id number] Aug, Dental examination Z01.20 [facility] [place] [address] [id number] [address] [place] [address] 20 Jul, 2017 Major depressive disorder, r ecurrent, moderate F33.1 [place] [address] [place] [id number] [address] [place] [address] Jul, Generalized anxiety disorder F41.1 ; Major depressive disorder, recurrent, moderate F33.1 and Personality disorder in adult F60.9 [facility] [place] [address] [place] [id number] [address] [place] [address] Jul, Generalized anxiety disorder F41.1 ; Major depressive disorder, recurrent, moderate F33.1 and Personality disorder in adult F60.9 [place] [address] [place] [id number] [address] [place] [address] Jun, Generalized anxiety disorder F41.1 ; Major depressive disorder, recurrent, moderate F33.1 and Personality disorder in adult F60.9 [facility] [place] [address] [facility] [id number] [address] [place] [address] Apr, Generalized anxiety disorder F41.1 ; Major depressive disorder, recurrent, moderate F33.1 and Personality disorder in adult F60.9 [facility] [place] [address] [facility] [id number] [address] [place] [address] March, Acquired hypothyroidism E03. 9 [facility] [place] [address] [facility] [id number] [address] [place] [address] March, Acquired hypothyroidism E03. 9 and Left lower quadrant pain R10.32 [place] [address] [address] March, Hypercholesterolemia E78.0 ; Acquired hypothyroidism E03.9 ; Insomnia, unspecified type G47.00 ; Secondary hypertension I15.9 ; Gastroesophageal reflux disease, esophagitis presence not specified K21.9 ; Tingling in extremities R20.2 ; Environmental allergies Z91.09 ; Depression, unspecified depression type F32.9 and Left lower quadrant pain R10.[address] [address] Feb, High risk sexual behavior Z7 2.[address] [address] Feb, Major depressive disorder, r ecurrent, moderate F33.1 and Generalized anxiety disorder F41.[address] [address] 22 Dec, 2016 Major depressive disorder, r ecurrent, moderate F33.[address] [address] 17 Dec, 2016 [place] [id number] 16 Dec, 2016 Acquired hypothyroidism E03. 9 and High risk sexual behavior Z72.[address] [address] 07 Dec, 2016 Major depressive disorder, r ecurrent, moderate F33.1 and Generalized anxiety disorder F41.[address] [address] 07 Dec, 2016 Acquired hypothyroidism E03. 9 ; Secondary hypertension I15.9 and Acute eczema L30.9 [place] [id number] Nov, Acquired hypothyroidism E03. 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 ; Hypercholesterolemia E78.0 ; Gastroesophageal reflux disease, esophagitis presence not specified K21.9 ; Anxiety F41.9 and Secondary hypertension I15.9 [place] [address] [address] Oct, Major depressive disorder, r ecurrent, moderate F33.1 and Generalized anxiety disorder F41.1 [place] [address] [address] Aug, [place] [address] [address] Aug, Insomnia, unspecified type G 47.00 ; Acquired hypothyroidism E03.9 ; Hypercholesterolemia E78.0 and Gastroesophageal reflux disease, esophagitis presence not specified K21.9 [place] [address] [address] Jul, [address] [address] Jul, Major depressive disorder, r ecurrent, in partial remission F33.41 and Generalized anxiety disorder F41.1 [place] [id number] Jun, [address] [address] Jun, Cervical pain (neck) M54.2 a nd Cervical neuropathic pain M54.[address] [address] 14 Apr, 2016 Insomnia, unspecified type G 47.00 ; Acquired hypothyroidism E03.9 ; Hypercholesterolemia E78.0 ; 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 ; Depression, unspecified depression type F32.9 ; 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 ; Gastroesophageal reflux disease, esophagitis presence not specified K21.9 ; Anxiety F41.9 ; Secondary hypertension I15.9 and Post- nasal drainage R09.[address] [address] Apr, [facility] [place] [address] [place] [id number] [address] [place] [address] March, [facility] [place] [address] [place] [id number] [address] [place] [address] March, Unspecified hypothyroidism 2 44.9 and HTN (hypertension) 401.9 [facility] [place] [address] [place] [id number] [address] [place] [address] March, [facility] [place] [address] [place] [id number] [address] [place] [address] Dec, [facility] [place] [address] [place] [id number] [place] [address] Nov, [facility] [place] [address] [address] Sep, Generalized anxiety disorder F41.1 and Major depressive disorder, recurrent, in partial remission F33.41 [facility] [place] [address] [place] [id number] [address] [place] [address] Jun, Unspecified hypothyroidism 2 44.9 ; Sciatica 724.3 ; Major depressive disorder, recurrent episode, in partial or unspecified remission 296.35 ; Combined hyperlipidemia 272.2 ; HTN (hypertension) 401.9 ; Hidrosis 780.8 ; Cat allergies 477.8 and Environmental allergies V15.09 [facility] [place] [address] [place] [id number] [address] [place] [address] Jun, Major depressive disorder, r ecurrent episode, in partial or unspecified remission 296.35 ; Insomnia, unspecified 780.52 and Generalized anxiety disorder 300.02 [facility] [place] [address] [place] [id number] [address] [place] [address] May, [facility] [place] [address] [place] [id number] [address] [place] [address] Apr, [facility] [place] [address] [place] [id number] [address] [place] [address] Apr, Closed mallet fracture of di stal phalanx of ring finger 816.02 [facility] [address] [id number] [address] [place] [address] March, Depression, major, recurrent , moderate 296.32 ; Generalized anxiety disorder 300.02 and Borderline personality disorder 301.83 [facility] [address] [id number] [address] [place] [address] Feb, [facility] [address] [id number] [address] [place] [address] Feb, [facility] [address] [id number] [address] [place] [address] Jan, [facility] [address] [id number] [address] [place] [address] Jan, [facility] [address] [id number] [address] [place] [address] Jan, [facility] [address] [id number] [address] [place] [address] Jan, [facility] [address] [id number] [address] [place] [address] Jan, [facility] [address] [id number] [address] [place] [address] Jan, [facility] [address] [id number] [address] [place] [address] Dec, [facility] [address] [id number] [address] [place] [address] Dec, [facility] [address] [id number] [address] [place] [address] Dec, [facility] [address] [id number] [address] [place] [address] Dec, [facility] [address] [id number] [address] [place] [address] Nov, [facility] [address] [id number] [address] [place] [address], [place] [address] 15 Nov, 2014 [facility] [address] [id number] [address] [place] [address], [place] [address] Nov, [facility] [address] [id number] [address] [place] [address], [place] [address] Nov, [facility] [address] [id number] [address] [place] [address], [place] [address] Nov, [facility] [address] [id number] [address] [place] [address], [place] [address] Nov, [facility] [address] [id number] [address] [place] [address], [place] [address] Oct, [facility] [address] [id number] [address] [place] [address], [place] [address] Oct, [facility] [address] [id number] [address] [place] [address], [place] [address] Oct, [facility] [address] [id number] [address] [place] [address], [place] [address] Oct, [facility] [address] [id number] [address] [place] [address], [place] [address] Oct, [facility] [address] [id number] [address] [place] [address], [place] [address] Oct, [facility] [address] [id number] [address] [place] [address], [place] [address] Sep, [facility] [address] [id number] [address] [place] [address], [place] [address] Sep, [facility] [address] [id number] [address] [place] [address], [place] [address] Sep, [facility] [address] [id number] [address] [place] [address], [place] [address] Sep, [facility] [address] [id number] [address] [place] [address], [place] [address] Aug, [facility] [address] [id number] [address] [place] [address], [place] [address] Aug, [facility] [address] [id number] [address] [place] [address], [place] [address] Apr, [facility] [address] [id number] [address] [place] [address], [place] [address] Apr, [facility] [address] [id number] [address] [place] [address], [place] [address] Apr, [facility] [address] [id number] [address] [place] [address], [place] [address] 17 Apr, 2014 [facility] [address] [id number] [address] [place] [address], [place] [address] Apr, [facility] [address] [id number] [address] [place] [address], [place] [address] Apr, [facility] [address] [id number] [address] [place] [address], [place] [address] March, [facility] [address] [id number] [address] [place] [address], [place] [address] March, [facility] [address] [id number] [address] [place] [address], [place] [address] Dec, [facility] [address] [id number] [address] [place] [address], [place] [address] Dec, [facility] [address] [id number] [address] [place] [address], [place] [address] Sep, [facility] [address] [id number] [address] [place] [address], [place] [address] Sep, [facility] [address] [id number] [address] [place] [address], [place] [address] Aug, [facility] [address] [id number] [address] [place] [address], [place] [address] Aug, [facility] [address] [id number] [address] [place] [address], [place] [address] 09 Aug, 2012 [facility] [address] [id number] [address] [place] [address], [place] [address] Aug, [facility] [address] [id number] [address] [place] [address], [place] [address] Aug, [facility] [address] [id number] [address] [place] [address], [place] [address] Aug, 2012 [facility] [address] [id number] [address] [place] [address], [place] [address] Aug, [facility] [address] [id number] [address] [place] [address], [place] [address] Aug, [facility] [address] [id number] [address] [place] [address], [place] [address] Aug, [facility] [address] [id number] [address] [place] [address], [place] [address] Aug, [facility] [address] [id number] [address] [place] [address], [place] [address] Jul, [facility] [address] [id number] [address] [place] [address], [place] [address] Jul, [facility] [address] [id number] [address] [place] [address], [place] [address] 05 Jul, 2013 [facility] [address] [id number] [address] [place] [address], [place] [address] Jun, [facility] [address] [id number] [address] [place] [address], [place] [address] May, [facility] [address] [id number] [address] [place] [address], [place] [address] May, [facility] [address] [id number] [address] [place] [address], [place] [address] May, [facility] [address] [id number] [address] [place] [address], [place] [address] Apr, [facility] [address] [id number] [address] [place] [address], [place] [address] March, [facility] [address] [id number] [address] [place] [address], [place] [address] March, [facility] [address] [id number] [address] [place] [address], [place] [address] Feb, [facility] [address] [id number] [address] [place] [address], [place] [address] Feb, [facility] [address] [id number] [address] [place] [address], [place] [address] Feb, [facility] [address] [id number] [address] [place] [address], [place] [address] Feb, [facility] [address] [id number] [address] [place] [address], [place] [address] Jan, [facility] [address] [address] [id number] [address] [place] [address], [place] [address] Jan, [facility] [address] [id number] [address] [place] [address], [place] [address] Jan, [facility] [address] [id number] [address] [place] [address], [place] [address] Jan, [facility] [address] [id number] [address] [place] [address], [place] [address] Dec, [facility] [address] [id number] [address] [place] [address], [place] [address] Dec, [facility] [address] [id number] [address] [place] [address], [place] [address] Dec, [facility] [address] [id number] [address] [place] [address], [place] [address] Nov, [facility] [address] [id number] [address] [place] [address], [place] [address] Nov, [facility] [address] [id number] [address] [place] [address] Nov, [facility] [address] [id number] [address] [place] [address], [place] [address] Nov, [facility] [address] [id number] [address] [place] [address], [place] [address] Oct, [facility] [address] [id number] [address] [place] [address], [place] [address] Oct, [facility] [address] [id number] [address] [place] [address], [place] [address] Oct, [facility] [address] [id number] [address] [place] [address], [place] [address] Oct, [facility] [address] [id number] [address] [place] [address], [place] [address] Sep, [facility] [address] [id number] [address] [place] [address], [place] [address] Sep, [facility] [address] [id number] [address] [place] [address], [place] [address] Sep, [facility] [address] [id number] [address] [place] [address], [place] [address] Sep, [facility] [address] [id number] [address] [place] [address], [place] [address] Aug, [facility] [address] [id number] [address] [place] [address], [place] [address] Aug, [facility] [address] [id number] [address] [place] [address] Aug, [facility] [address] [id number] [address] [place] [address], [place] [address] Jul, [facility] [address] [id number] [address] [place] [address], [place] [address] Jun, [facility] [address] [id number] [address] [place] [address], [place] [address] May, [facility] [address] [id number] [address] [place] [address], [place] [address] May, [facility] [address] [id number] [address] [place] [address], [place] [address] May, [facility] [address] [id number] [address] [place] [address], [place] [address] March, [facility] [address] [id number] [address] [place] [address], [place] [address] March, [facility] [address] [id number] [address] [place] [address], [place] [address] Feb, [facility] [address] [id number] [address] [place] [address], [place] [address] Feb, [facility] [address] [id number] [address] [place] [address], [place] [address] Feb, [facility] [address] [id number] [address] [place] [address], [place] [address] Feb, [facility] [address] [id number] [address] [place] [address], [place] [address] Feb, [facility] [address] [id number] [address] [place] [address], [place] [address] Feb, [facility] [address] [id number] [address] [place] [address], [place] [address] Feb, [facility] [address] [id number] [address] [place] [address], [place] [address] Feb, [facility] [address] [id number] [address] [place] [address], [place] [address] Dec, [facility] [address] [id number] [address] [place] [address], [place] [address] Nov, [facility] [address] [id number] [address] [place] [address], [place] [address] Nov, [facility] [address] [id number] [address] [place] [address], [place] [address] Nov, 2011 [facility] [address] [id number] [address] [place] [address], [place] [address] 13 Nov, 2011 [facility] [address] [id number] [address] [place] [address], [place] [address] 13 Nov, 2011 [facility] [address] [id number] [address] [place] [address], [place] [address] 12 Nov, 2011 [facility] [address] [id number] [address] [place] [address], [place] [address] 14 Oct, 2011 [facility] [address] [id number] [address] [place] [address], [place] [address] Sep, [facility] [address] [id number] [address] [place] [address], [place] [address] Sep, [facility] [address] [id number] [address] [place] [address], [place] [address] Sep, [facility] [address] [id number] [address] [place] [address] Sep, [facility] [address] [id number] [address] [place] [address], [place] [address] Aug, [facility] [address] [id number] [address] [place] [address], [place] [address] 24 Aug, 2011 [facility] [address] [id number] [address] [place] [address] Aug, [facility] [address] [id number] [address] [place] [address] Aug, [facility] [address] [id number] [address] [place] [address], [place] [address] Aug, [facility] [address] [id number] [address] [place] [address] Aug, [facility] [address] [id number] [address] [place] [address], [place] [address] 17 Aug, 2011 [facility] [address] [id number] [address] [place] [address] Aug, [facility] [address] [facility] [id number] [address] [place] [address] Aug, [facility] [address] [facility] [id number] [address] [place] [address] Jul, [facility] [address] [facility] [id number] [address] [place] [address] May, IMMUNIZATIONS No Known Immunizations SOCIAL HISTORY Never Assessed REASON FOR VISIT PLAN OF CARE VITAL SIGNS Height 68 in 2014-11-02 Weight 227.2 lbs 2014-11-02 Temperature 97.7 degrees Fahrenheit 2014-11-02 Heart Rate 72 bpm 2014-11-02 Respiratory Rate 18 2014-11-02 Blood pressure systolic 120 mmHg 2014-11-02 Blood pressure diastolic 82 mmHg 2014-11-02 MEDICATIONS Unknown Medications RESULTS No Results PROCEDURES Procedure Date Ordered Result Body Site ASSAY THYROID STIM HORMONE Nov 02, 2014 VENIPUNCT, ROUTINE* Nov 02, 2014 INSTRUCTIONS MEDICATIONS ADMINISTERED No Known Medications [...]
--- OUTSIDE RECORDS SUMMARY | 2020-02-07 09:18 | XMS REPORT ---
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 Active 460383792 Problem Hypercholesterolemia E78.0 Active 27146102 Problem Secondary hypertension I15.9 Active 19084463 Problem Acquired hypothyroidism E03.9 Active 244884088 Problem Anxiety F41.9 Active 35866600 Problem Tingling in extremities R20.2 Active 26227889 Problem Personality disorder in adult F60.9 Active 96371706 Problem Generalized anxiety disorder F41.1 A ctive 80257225 Problem Gastroesophageal reflux disease without esophagitis K21.9 Active 048108871 Problem Environmental allergies Z91.09 Active 968393856 Problem Hypothyroidism (acquired) E03.9 Acti ve 035184897 Problem Acute eczema L30.9 Active 9760617 02 Problem Depression, unspecified depression type F32.9 Active 22894123 Problem Major depressive disorder, recurrent, moderate F33 .1 Active 38493403 Problem Drug-induced erectile dysfunction N52.2 Active 325886850 Problem Acute left-sided low back pain with left-sided sciatica M54.42 Active 944087482 Problem Primary insomnia F51.01 Active 397 2004 ALLERGIES No Information ENCOUNTERS Encounter Location Date Diagnosis [facility] [address] [facility] [id number] [address] [place] [phone] May, [facility] [address] [facility] [id number] [address] [place] [id number] Apr, [facility] [address] [id number] [address] [place] [phone] March, [facility] [address] [id number] [address] [place] [phone] Feb, Generalized anxiety disorder F41.1 ; Major depressive disorder, recurrent, moderate F33.1 and Personality disorder in adult F60.9 [facility] [address] [id number] [address] [place] [phone] Jan, [facility] [address] [id number] [address] [place] [id number] Dec, [facility] [address] [id number] [address] [place] [phone] Dec, Acquired hypothyroidism E03. 9 and Other chcf (current) drug therapy Z79.899 [facility] [address] [id number] [address] [place] [phone] Dec, Acquired hypothyroidism E03. 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 [facility] [address] [id number] [address] [place] [phone] Nov, [facility] [address] [id number] [address] [place] [id number] Oct, [facility] [address] [id number] [address] [place] [phone] Sep, Generalized anxiety disorder F41.1 ; Major depressive disorder, recurrent, moderate F33.1 and Personality disorder in adult F60.9 [facility] [address] [id number] [address] [place] [phone] Aug, [facility] [address] [id number] [address] [place] [phone] Aug, [facility] [address] [facility] [id number] [address] [place] [phone] Jul, Generalized anxiety disorder F41.1 [facility] [address] [facility] [id number] [address] [place] [phone] 24 Jul, 2018 [facility] [address] [facility] [id number] [address] [place] [id number] Jul, Acquired hypothyroidism E03. 9 [facility] [address] [facility] [id number] [address] [place] [phone] Jul, Generalized anxiety disorder F41.1 [place] [address] [facility] [id number] [address] [place] [phone] 04 Jul, 2018 Generalized anxiety disorder F41.1 ; Major depressive disorder, recurrent, moderate F33.1 and Personality disorder in adult F60.9 [place] [address] [place] [id number] [address] [place] [phone] Jun, Generalized anxiety disorder F41.1 ; Major depressive disorder, recurrent, moderate F33.1 ; Primary insomnia F51.01 and Personality disorder in adult F60.9 [place] [address] [place] [id number] [address] [place] [phone] May, Acquired hypothyroidism E03. 9 [facility] [address] [facility] [id number] [address] [place] [phone] May, Hypothyroidism (acquired) E0 3.9 and Gastroesophageal reflux disease without esophagitis K21.9 [facility] [address] [facility] [id number] [address] [place] [id number] Apr, [facility] [address] [facility] [id number] [address] [place] [id number] Apr, Skin infection L08.9 [facility] [address] [facility] [id number] [address] [place] [phone] 05 Apr, 2018 Generalized anxiety disorder F41.1 ; Major depressive disorder, recurrent, moderate F33.1 ; Primary insomnia F51.01 and Personality disorder in adult F60.[address] [place] [address] [facility] [id number] [address] [place] [phone] March, Generalized anxiety disorder F41.1 ; Major depressive disorder, recurrent, moderate F33.1 and Personality disorder in adult F60.9 [facility] [address] [facility] [id number] [address] [place] [phone] Feb, [facility] [address] [facility] [id number] [address] [place] [phone] 06 Dec, 2017 Generalized anxiety disorder F41.1 ; Major depressive disorder, recurrent, moderate F33.1 and Personality disorder in adult F60.9 [facility] [address] [facility] [id number] [address] [place] [phone] 06 Dec, 2017 Acute left-sided low back pa in with left-sided sciatica M54.42 [facility] [address] [facility] [id number] [address] [place] [phone] Nov, [facility] [address] [facility] [id number] [address] [place] [phone] 05 Oct, 2017 Generalized anxiety disorder F41.1 ; Major depressive disorder, recurrent, moderate F33.1 and Personality disorder in adult F60.9 [facility] [address] [facility] [id number] [address] [place] [phone] 24 Sep, 2017 Acquired hypothyroidism E03. 9 ; Hypercholesterolemia E78.0 ; Generalized anxiety disorder F41.1 and Drug-induced erectile dysfunction N52.2 [facility] [address] [facility] [id number] [address] [place] [phone] Sep, [facility] [address] [facility] [id number] [address] [place] [phone] Sep, Acquired hypothyroidism E03. 9 ; Hypercholesterolemia E78.0 ; Generalized anxiety disorder F41.1 and Drug-induced erectile dysfunction N52.2 [facility] [address] [facility] [id number] [address] [place] [phone] 07 Sep, 2017 Generalized anxiety disorder F41.1 ; Major depressive disorder, recurrent, moderate F33.1 and Personality disorder in adult F60.9 [facility] [address] [id number] [address] [place] [id number] Aug, Dental examination Z01.20 [facility] [address] [id number] [address] [place] [id number] Aug, Dental caries K02.9 [facility] [address] [id number] [address] [place] [phone] Aug, [facility] [address] [id number] [address] [place] [address] [id number] Aug, Dental examination Z01.20 [facility] [address] [id number] [address] [place] [phone] Jul, Major depressive disorder, r ecurrent, moderate F33.1 [facility] [address] [id number] [address] [place] [phone] Jul, Generalized anxiety disorder F41.1 ; Major depressive disorder, recurrent, moderate F33.1 and Personality disorder in adult F60.9 [facility] [address] [id number] [address] [place] [phone] Jul, Generalized anxiety disorder F41.1 ; Major depressive disorder, recurrent, moderate F33.1 and Personality disorder in adult F60.9 [facility] [address] [id number] [address] [place] [phone] Jun, Generalized anxiety disorder F41.1 ; Major depressive disorder, recurrent, moderate F33.1 and Personality disorder in adult F60.9 [facility] [address] [id number] [address] [place] [phone] Apr, Generalized anxiety disorder F41.1 ; Major depressive disorder, recurrent, moderate F33.1 and Personality disorder in adult F60.9 [facility] [address] [id number] [address] [place] [phone] March, Acquired hypothyroidism E03. 9 [facility] [address] [id number] [address] [place] [phone] March, Acquired hypothyroidism E03. 9 and Left lower quadrant pain R10.32 [place] [address] [place] [id number] March, Hypercholesterolemia E78.0 ; Acquired hypothyroidism E03.9 ; Insomnia, unspecified type G47.00 ; Secondary hypertension I15.9 ; Gastroesophageal reflux disease, esophagitis presence not specified K21.9 ; Tingling in extremities R20.2 ; Environmental allergies Z91.09 ; Depression, unspecified depression type F32.9 and Left lower quadrant pain R10.32 [place] [address] [address] Feb, High risk sexual behavior Z7 2.51 [place] [address] [phone] Feb, Major depressive disorder, r ecurrent, moderate F33.1 and Generalized anxiety disorder F41.1 [place] [address] [address] Dec, Major depressive disorder, r ecurrent, moderate F33.1 [place] [address] [address] Dec, [place] [address] [phone] 16 Dec, 2016 Acquired hypothyroidism E03. 9 and High risk sexual behavior Z72.51 [place] [address] [address] Dec, Major depressive disorder, r ecurrent, moderate F33.1 and Generalized anxiety disorder F41.1 [place] [address] [place] [id number] 07 Dec, 2016 Acquired hypothyroidism E03. 9 ; Secondary hypertension I15.9 and Acute eczema L30.9 [place] [address] [address] Nov, Acquired hypothyroidism E03. 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 ; Hypercholesterolemia E78.0 ; Gastroesophageal reflux disease, esophagitis presence not specified K21.9 ; Anxiety F41.9 and Secondary hypertension I15.9 [place] [address] [address] Oct, Major depressive disorder, r ecurrent, moderate F33.1 and Generalized anxiety disorder F41.1 [place] [address] [address] Aug, [place] [address] [place] [id number] Aug, Insomnia, unspecified type G 47.00 ; Acquired hypothyroidism E03.9 ; Hypercholesterolemia E78.0 and Gastroesophageal reflux disease, esophagitis presence not specified K21.9 [place] [address] [address] Jul, [place] [address] [address] Jul, Major depressive disorder, r ecurrent, in partial remission F33.41 and Generalized anxiety disorder F41.1 [place] [address] [address] Jun, [place] [address] [address] Jun, Cervical pain (neck) M54.2 a nd Cervical neuropathic pain M54.12 [place] [address] [place] [id number] [place] [address] Apr, Insomnia, unspecified type G 47.00 ; Acquired hypothyroidism E03.9 ; Hypercholesterolemia E78.0 ; 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 ; Depression, unspecified depression type F32.9 ; 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 ; Gastroesophageal reflux disease, esophagitis presence not specified K21.9 ; Anxiety F41.9 ; Secondary hypertension I15.9 and Post- nasal drainage R09.82 [facility] [address] [place] [id number] [address] [place] [phone] Apr, [facility] [address] [place] [id number] [place] [phone] March, [facility] [address] [place] [id number] [place] [address] March, Unspecified hypothyroidism 2 44.9 and HTN (hypertension) 401.9 [facility] [address] [place] [id number] [address] [place] [phone] March, [facility] [address] [phone] Dec, [facility] [address] [address] Nov, [facility] [address] [address] Sep, Generalized anxiety disorder F41.1 and Major depressive disorder, recurrent, in partial remission F33.41 [place] [address] [address] Jun, Unspecified hypothyroidism 2 44.9 ; Sciatica 724.3 ; Major depressive disorder, recurrent episode, in partial or unspecified remission 296.35 ; Combined hyperlipidemia 272.2 ; HTN (hypertension) 401.9 ; Hidrosis 780.8 ; Cat allergies 477.8 and Environmental allergies V15.09 [facility] [address] [place] [id number] [address] [place] [phone] Jun, Major depressive disorder, r ecurrent episode, in partial or unspecified remission 296.35 ; Insomnia, unspecified 780.52 and Generalized anxiety disorder 300.02 [facility] [address] [place] [id number] [address] [place] [phone] May, [facility] [address] [place] [id number] [place] [address] Apr, [facility] [address] [id number] [address] [place] [phone] Apr, Closed mallet fracture of di stal phalanx of ring finger 816.02 [facility] [address] [id number] [address] [place] [phone] March, Depression, major, recurrent , moderate 296.32 ; Generalized anxiety disorder 300.02 and Borderline personality disorder 301.83 [facility] [address] [id number] [address] [place] [phone] Feb, [facility] [address] [id number] [address] [place] [phone] Feb, [facility] [address] [facility] [id number] [address] [place] [phone] Jan, [facility] [address] [facility] [id number] [address] [place] [phone] Jan, [facility] [address] [facility] [id number] [address] [place] [phone] Jan, [facility] [address] [id number] [address] [place] [phone] Jan, [facility] [address] [facility] [id number] [address] [place] [phone] Jan, [facility] [address] [facility] [id number] [address] [place] [phone] Jan, [facility] [address] [facility] [id number] [address] [place] [phone] Dec, [facility] [address] [id number] [address] [place] [phone] Dec, [facility] [address] [facility] [id number] [address] [place] [phone] Dec, [facility] [address] [facility] [id number] [address] [place] [phone] Dec, [facility] [address] [id number] [address] [place] [address], [place] [address] 15 Nov, 2014 [facility] [address] [id number] [address] [place] [address], [place] [address] Nov, [facility] [address] [id number] [address] [place] [address], [place] [address] Nov, [facility] [address] [id number] [address] [place] [address], [place] [address] Nov, [facility] [address] [id number] [address] [place] [address], [place] [address] Nov, [facility] [address] [id number] [address] [place] [address], [place] [address] Nov, [facility] [address] [id number] [address] [place] [address], [place] [address] Oct, [facility] [address] [id number] [address] [place] [address], [place] [address] Oct, [facility] [address] [id number] [address] [place] [address], [place] [address] Oct, [facility] [address] [id number] [address] [place] [address], [place] [address] Oct, [facility] [address] [id number] [address] [place] [address], [place] [address] Oct, [facility] [address] [id number] [address] [place] [address], [place] [address] Oct, [facility] [address] [id number] [address] [place] [address], [place] [address] Sep, [facility] [address] [id number] [address] [place] [address], [place] [address] Sep, [facility] [address] [id number] [address] [place] [address], [place] [address] Sep, [facility] [address] [id number] [address] [place] [address], [place] [address] Sep, [facility] [address] [id number] [address] [place] [address], [place] [address] Aug, [facility] [address] [id number] [address] [place] [address], [place] [address] Aug, [facility] [address] [id number] [address] [place] [address], [place] [address] Apr, [facility] [address] [id number] [address] [place] [address], [place] [address] Apr, [facility] [address] [id number] [address] [place] [address], [place] [address] Apr, [facility] [address] [id number] [address] [place] [address], [place] [address] 17 Apr, 2014 [facility] [address] [id number] [address] [place] [address], [place] [address] Apr, [facility] [address] [id number] [address] [place] [address], [place] [address] Apr, [facility] [address] [id number] [address] [place] [address], [place] [address] March, [facility] [address] [id number] [address] [place] [address], [place] [address] March, [facility] [address] [id number] [address] [place] [address], [place] [address] Dec, [facility] [address] [id number] [address] [place] [address], [place] [address] Dec, [facility] [address] [id number] [address] [place] [address], [place] [address] Sep, [facility] [address] [id number] [address] [place] [address], [place] [address] Sep, [facility] [address] [id number] [address] [place] [address], [place] [address] Aug, [facility] [address] [id number] [address] [place] [address], [place] [address] Aug, 2012 [facility] [address] [id number] [address] [place] [address], [place] [address] Aug, 2012 [facility] [address] [id number] [address] [place] [address], [place] [address] Aug, 2012 [facility] [address] [id number] [address] [place] [address], [place] [address] Aug, 2012 [facility] [address] [id number] [address] [place] [address], [place] [address] Aug, 2012 [facility] [address] [id number] [address] [place] [address], [place] [address] Aug, 2012 [facility] [address] [id number] [address] [place] [address], [place] [address] Aug, [facility] [address] [id number] [address] [place] [address], [place] [address] Aug, [facility] [address] [id number] [address] [place] [address], [place] [address] Aug, [facility] [address] [id number] [address] [place] [address], [place] [address] 27 Jul, 2013 [facility] [address] [id number] [address] [place] [address], [place] [id number] Jul, [facility] [address] [id number] [address] [place] [address], [place] [id number] 05 Jul, 2013 [facility] [address] [id number] [address] [place] [address], [place] [id number] Jun, [facility] [address] [id number] [address] [place] [address], [place] [id number] May, [facility] [address] [id number] [address] [place] [address], [place] [id number] May, [facility] [address] [id number] [address] [place] [address], [place] [id number] May, [facility] [address] [id number] [address] [place] [address], [place] [id number] Apr, [facility] [place] [address] [id number] [address] [place] [address], [place] [id number] March, [facility] [address] [id number] [address] [place] [address], [place] [id number] March, [facility] [address] [id number] [address] [place] [address], [place] [id number] Feb, [facility] [place] [address] [id number] [address] [place] [address], [place] [id number] Feb, [facility] [address] [id number] [address] [place] [address], [place] [id number] Feb, [facility] [address] [id number] [address] [place] [address], [place] [id number] Feb, [facility] [address] [id number] [address] [place] [address], [place] [id number] Jan, [facility] [address] [id number] [address] [place] [address], [place] [id number] Jan, [facility] [place] [address] [id number] [address] [place] [address], [place] [id number] Jan, [facility] [address] [id number] [address] [place] [address], [place] [id number] Jan, [facility] [address] [id number] [address] [place] [address], [place] [id number] Dec, [facility] [address] [id number] [address] [place] [address], [place] [id number] Dec, [facility] [address] [id number] [address] [place] [address], [place] [id number] Dec, [facility] [address] [id number] [address] [place] [address], [place] [id number] Nov, [facility] [place] [address] [id number] [address] [place] [id number] Nov, [facility] [address] [id number] [address] [place] [address], [place] [id number] Nov, [facility] [address] [id number] [address] [place] [address], [place] [id number] Nov, [facility] [address] [id number] [address] [place] [address], [place] [id number] Oct, [facility] [address] [id number] [address] [place] [address], [place] [id number] Oct, [facility] [address] [id number] [address] [place] [address], [place] [id number] Oct, [facility] [address] [id number] [address] [place] [address], [place] [id number] Oct, [facility] [address] [id number] [address] [place] [address], [place] [id number] Sep, [facility] [address] [id number] [address] [place] [address], [place] [id number] Sep, [facility] [address] [id number] [address] [place] [address], [place] [id number] Sep, [facility] [address] [id number] [address] [place] [address], [place] [id number] Sep, [facility] [address] [id number] [address] [place] [address], [place] [id number] Aug, [facility] [address] [id number] [address] [place] [id number] Aug, [facility] [address] [id number] [address] [place] [address], [place] [id number] Aug, [facility] [address] [id number] [address] [place] [address], [place] [id number] Jul, [facility] [address] [id number] [address] [place] [address], [place] [id number] Jun, [facility] [address] [id number] [address] [place] [address], [place] [id number] May, [facility] [address] [id number] [address] [place] [address], [place] [id number] May, [facility] [address] [id number] [address] [place] [address], [place] [id number] May, [facility] [address] [id number] [address] [place] [address], [place] [id number] March, [facility] [address] [id number] [address] [place] [address], [place] [id number] March, [facility] [address] [id number] [address] [place] [address], [place] [id number] Feb, [facility] [address] [id number] [address] [place] [address], [place] [id number] Feb, [facility] [address] [id number] [address] [place] [address], [place] [id number] Feb, [facility] [address] [id number] [address] [place] [address], [place] [id number] Feb, [facility] [address] [id number] [address] [place] [address], [place] [id number] Feb, [facility] [address] [id number] [address] [place] [address], [place] [id number] Feb, [facility] [address] [id number] [address] [place] [address], [place] [id number] Feb, [facility] [address] [id number] [address] [place] [address], [place] [id number] Feb, [facility] [address] [id number] [address] [place] [address], [place] [id number] Dec, [facility] [address] [id number] [address] [place] [address], [place] [id number] Nov, [facility] [address] [id number] [address] [place] [address], [place] [id number] Nov, 2011 [facility] [address] [id number] [address] [place] [address], [place] [id number] Nov, [facility] [address] [id number] [address] [place] [address], [place] [id number] Nov, [facility] [address] [id number] [address] [place] [address], [place] [id number] Nov, [facility] [address] [id number] [address] [place] [address], [place] [id number] Nov, [facility] [address] [id number] [address] [place] [address], [place] [id number] Oct, [facility] [address] [id number] [address] [place] [address], [place] [id number] Sep, [facility] [address] [id number] [address] [place] [address], [place] [id number] Sep, [facility] [address] [id number] [address] [place] [id number] Sep, [facility] [address] [id number] [address] [place] [address], [place] [id number] Sep, [facility] [address] [id number] [address] [place] [address], [place] [id number] Aug, [facility] [address] [id number] [address] [place] [id number] Aug, [facility] [address] [id number] [address] [place] [id number] Aug, [facility] [address] [id number] [address] [place] [address], [place] [id number] Aug, [facility] [address] [id number] [address] [place] [address], [place] [id number] Aug, [facility] [address] [id number] [address] [place] [address], [place] [id number] Aug, [facility] [address] [id number] [address] [place] [id number] Aug, [facility] [address] [facility] [id number] [address] [place] [id number] Aug, [facility] [address] [facility] [id number] [address] [place] [id number] Aug, [facility] [address] [facility] [id number] [address] [place] [id number] Jul, [facility] [address] [facility] [id number] [address] [place] [id number] May, IMMUNIZATIONS No Known Immunizations SOCIAL HISTORY [...]
--- OUTSIDE RECORDS SUMMARY | 2020-02-07 09:18 | XMS REPORT ---
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 Active 454856898 Problem Hypercholesterolemia E78.0 Active 28983237 Problem Secondary hypertension I15.9 Active 73434193 Problem Acquired hypothyroidism E03.9 Active 920783125 Problem Anxiety F41.9 Active 12036948 Problem Tingling in extremities R20.2 Active 15987164 Problem Personality disorder in adult F60.9 Active 78641523 Problem Generalized anxiety disorder F41.1 A ctive 66022112 Problem Gastroesophageal reflux disease without esophagitis K21.9 Active 183785112 Problem Environmental allergies Z91.09 Active 497644986 Problem Hypothyroidism (acquired) E03.9 Acti ve 425447055 Problem Acute eczema L30.9 Active 3802565 02 Problem Depression, unspecified depression type F32.9 Active 99721600 Problem Major depressive disorder, recurrent, moderate F33 .1 Active 24067600 Problem Drug-induced erectile dysfunction N52.2 Active 687999060 Problem Acute left-sided low back pain with left-sided sciatica M54.42 Active 117080723 Problem Primary insomnia F51.01 Active 397 2004 ALLERGIES No Information ENCOUNTERS Encounter Location Date Diagnosis [facility] [address] [facility] [id number] [address] [place] [phone] May, [facility] [address] [facility] [id number] [address] [place] [phone] Apr, [facility] [address] [id number] [address] [place] [phone] March, [facility] [address] [id number] [address] [place] [phone] Feb, Generalized anxiety disorder F41.1 ; Major depressive disorder, recurrent, moderate F33.1 and Personality disorder in adult F60.9 [facility] [address] [id number] [address] [place] [phone] Jan, [facility] [address] [id number] [address] [place] [phone] Dec, [facility] [address] [id number] [address] [place] [phone] Dec, Acquired hypothyroidism E03. 9 and Other halfway (current) drug therapy Z79.899 [facility] [address] [id number] [address] [place] [phone] Dec, Acquired hypothyroidism E03. 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 [facility] [address] [id number] [address] [place] [address] Nov, [facility] [address] [id number] [address] [place] [phone] Oct, [facility] [address] [id number] [address] [place] [phone] Sep, Generalized anxiety disorder F41.1 ; Major depressive disorder, recurrent, moderate F33.1 and Personality disorder in adult F60.9 [facility] [address] [id number] [address] [place] [phone] Aug, [facility] [address] [id number] [address] [place] [phone] Aug, [facility] [address] [facility] [id number] [address] [place] [phone] Jul, Generalized anxiety disorder F41.1 [facility] [address] [facility] [id number] [address] [place] [phone] 24 Jul, 2018 [facility] [address] [facility] [id number] [address] [place] [phone] Jul, Acquired hypothyroidism E03. 9 [facility] [address] [facility] [id number] [address] [place] [phone] Jul, Generalized anxiety disorder F41.1 [place] [address] [facility] [id number] [address] [place] [phone] 04 Jul, 2018 Generalized anxiety disorder F41.1 ; Major depressive disorder, recurrent, moderate F33.1 and Personality disorder in adult F60.9 [place] [address] [place] [id number] [address] [place] [phone] Jun, Generalized anxiety disorder F41.1 ; Major depressive disorder, recurrent, moderate F33.1 ; Primary insomnia F51.01 and Personality disorder in adult F60.9 [place] [address] [place] [id number] [address] [place] [phone] May, Acquired hypothyroidism E03. 9 [facility] [address] [facility] [id number] [address] [place] [phone] May, Hypothyroidism (acquired) E0 3.9 and Gastroesophageal reflux disease without esophagitis K21.9 [facility] [address] [facility] [id number] [address] [place] [phone] Apr, [facility] [address] [facility] [id number] [address] [place] [phone] Apr, Skin infection L08.9 [facility] [address] [facility] [id number] [address] [place] [phone] 05 Apr, 2018 Generalized anxiety disorder F41.1 ; Major depressive disorder, recurrent, moderate F33.1 ; Primary insomnia F51.01 and Personality disorder in adult F60.9 [place] [id number] [facility] [id number] [address] [place] [phone] March, Generalized anxiety disorder F41.1 ; Major depressive disorder, recurrent, moderate F33.1 and Personality disorder in adult F60.9 [facility] [address] [facility] [id number] [address] [place] [phone] Feb, [facility] [address] [facility] [id number] [address] [place] [phone] 06 Dec, 2017 Generalized anxiety disorder F41.1 ; Major depressive disorder, recurrent, moderate F33.1 and Personality disorder in adult F60.9 [facility] [address] [facility] [id number] [address] [place] [phone] 06 Dec, 2017 Acute left-sided low back pa in with left-sided sciatica M54.42 [facility] [address] [facility] [id number] [address] [place] [phone] Nov, [facility] [address] [facility] [id number] [address] [place] [phone] 05 Oct, 2017 Generalized anxiety disorder F41.1 ; Major depressive disorder, recurrent, moderate F33.1 and Personality disorder in adult F60.9 [facility] [address] [facility] [id number] [address] [place] [phone] 24 Sep, 2017 Acquired hypothyroidism E03. 9 ; Hypercholesterolemia E78.0 ; Generalized anxiety disorder F41.1 and Drug-induced erectile dysfunction N52.2 [facility] [address] [facility] [id number] [address] [place] [phone] Sep, [facility] [address] [facility] [id number] [address] [place] [phone] Sep, Acquired hypothyroidism E03. 9 ; Hypercholesterolemia E78.0 ; Generalized anxiety disorder F41.1 and Drug-induced erectile dysfunction N52.2 [facility] [address] [facility] [id number] [address] [place] [phone] 07 Sep, 2017 Generalized anxiety disorder F41.1 ; Major depressive disorder, recurrent, moderate F33.1 and Personality disorder in adult F60.9 [facility] [address] [id number] [address] [place] [id number] Aug, Dental examination Z01.20 [facility] [address] [id number] [address] [place] [address] [id number] Aug, Dental caries K02.9 [facility] [address] [id number] [address] [place] [phone] Aug, [facility] [address] [id number] [address] [place] [address] [id number] Aug, Dental examination Z01.20 [facility] [address] [id number] [address] [place] [phone] Jul, Major depressive disorder, r ecurrent, moderate F33.1 [facility] [address] [id number] [address] [place] [phone] Jul, Generalized anxiety disorder F41.1 ; Major depressive disorder, recurrent, moderate F33.1 and Personality disorder in adult F60.9 [facility] [address] [id number] [address] [place] [phone] Jul, Generalized anxiety disorder F41.1 ; Major depressive disorder, recurrent, moderate F33.1 and Personality disorder in adult F60.9 [facility] [address] [id number] [address] [place] [phone] Jun, Generalized anxiety disorder F41.1 ; Major depressive disorder, recurrent, moderate F33.1 and Personality disorder in adult F60.9 [facility] [address] [id number] [address] [place] [phone] Apr, Generalized anxiety disorder F41.1 ; Major depressive disorder, recurrent, moderate F33.1 and Personality disorder in adult F60.9 [facility] [address] [id number] [address] [place] [phone] March, Acquired hypothyroidism E03. 9 [facility] [address] [id number] [address] [place] [phone] March, Acquired hypothyroidism E03. 9 and Left lower quadrant pain R10.32 [place] [address] [place] [id number] March, Hypercholesterolemia E78.0 ; Acquired hypothyroidism E03.9 ; Insomnia, unspecified type G47.00 ; Secondary hypertension I15.9 ; Gastroesophageal reflux disease, esophagitis presence not specified K21.9 ; Tingling in extremities R20.2 ; Environmental allergies Z91.09 ; Depression, unspecified depression type F32.9 and Left lower quadrant pain R10.32 [place] [address] [address] Feb, High risk sexual behavior Z7 2.51 [place] [address] [address] Feb, Major depressive disorder, r ecurrent, moderate F33.1 and Generalized anxiety disorder F41.1 [place] [address] [address] Dec, Major depressive disorder, r ecurrent, moderate F33.1 [place] [address] [address] Dec, [place] [address] [phone] 16 Dec, 2016 Acquired hypothyroidism E03. 9 and High risk sexual behavior Z72.51 [place] [address] [address] Dec, Major depressive disorder, r ecurrent, moderate F33.1 and Generalized anxiety disorder F41.1 [place] [address] [place] [id number] 07 Dec, 2016 Acquired hypothyroidism E03. 9 ; Secondary hypertension I15.9 and Acute eczema L30.9 [place] [address] [address] Nov, Acquired hypothyroidism E03. 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 ; Hypercholesterolemia E78.0 ; Gastroesophageal reflux disease, esophagitis presence not specified K21.9 ; Anxiety F41.9 and Secondary hypertension I15.9 [place] [address] [address] Oct, Major depressive disorder, r ecurrent, moderate F33.1 and Generalized anxiety disorder F41.1 [place] [address] [address] Aug, [place] [address] [place] [id number] Aug, Insomnia, unspecified type G 47.00 ; Acquired hypothyroidism E03.9 ; Hypercholesterolemia E78.0 and Gastroesophageal reflux disease, esophagitis presence not specified K21.9 [place] [address] [address] Jul, [place] [address] [address] Jul, Major depressive disorder, r ecurrent, in partial remission F33.41 and Generalized anxiety disorder F41.1 [place] [address] [address] Jun, [place] [address] [address] Jun, Cervical pain (neck) M54.2 a nd Cervical neuropathic pain M54.12 [place] [address] [place] [id number] [place] [address] Apr, Insomnia, unspecified type G 47.00 ; Acquired hypothyroidism E03.9 ; Hypercholesterolemia E78.0 ; 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 ; Depression, unspecified depression type F32.9 ; 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 ; Gastroesophageal reflux disease, esophagitis presence not specified K21.9 ; Anxiety F41.9 ; Secondary hypertension I15.9 and Post- nasal drainage R09.82 [facility] [address] [place] [id number] [address] [place] [phone] Apr, [facility] [address] [place] [id number] [place] [address] March, [facility] [address] [place] [id number] [place] [address] March, Unspecified hypothyroidism 2 44.9 and HTN (hypertension) 401.9 [facility] [address] [place] [id number] [address] [place] [phone] March, [facility] [address] [address] Dec, [facility] [address] [address] Nov, [facility] [address] [address] Sep, Generalized anxiety disorder F41.1 and Major depressive disorder, recurrent, in partial remission F33.41 [place] [address] [address] Jun, Unspecified hypothyroidism 2 44.9 ; Sciatica 724.3 ; Major depressive disorder, recurrent episode, in partial or unspecified remission 296.35 ; Combined hyperlipidemia 272.2 ; HTN (hypertension) 401.9 ; Hidrosis 780.8 ; Cat allergies 477.8 and Environmental allergies V15.09 [facility] [address] [place] [id number] [address] [place] [phone] Jun, Major depressive disorder, r ecurrent episode, in partial or unspecified remission 296.35 ; Insomnia, unspecified 780.52 and Generalized anxiety disorder 300.02 [facility] [address] [place] [id number] [address] [place] [phone] May, [facility] [address] [place] [id number] [place] [address] Apr, [facility] [address] [id number] [address] [place] [address] Apr, Closed mallet fracture of di stal phalanx of ring finger 816.02 [facility] [address] [id number] [address] [place] [address] March, Depression, major, recurrent , moderate 296.32 ; Generalized anxiety disorder 300.02 and Borderline personality disorder 301.83 [facility] [address] [id number] [address] [place] [phone] Feb, [facility] [address] [id number] [address] [place] [phone] Feb, [facility] [address] [facility] [id number] [address] [place] [phone] Jan, [facility] [address] [facility] [id number] [address] [place] [phone] Jan, [facility] [address] [facility] [id number] [address] [place] [phone] Jan, [facility] [address] [id number] [address] [place] [phone] Jan, [facility] [address] [facility] [id number] [address] [place] [phone] Jan, [facility] [address] [facility] [id number] [address] [place] [phone] Jan, [facility] [address] [facility] [id number] [address] [place] [phone] Dec, [facility] [address] [id number] [address] [place] [phone] Dec, [facility] [address] [facility] [id number] [address] [place] [phone] Dec, [facility] [address] [facility] [id number] [address] [place] [phone] Dec, [facility] [address] [id number] [address] [place] [address], [place] [address] 15 Nov, 2014 [facility] [address] [id number] [address] [place] [address], [place] [address] Nov, [facility] [address] [id number] [address] [place] [address], [place] [address] Nov, [facility] [address] [id number] [address] [place] [address], [place] [address] Nov, [facility] [address] [id number] [address] [place] [address], [place] [address] Nov, [facility] [address] [id number] [address] [place] [address], [place] [address] Nov, [facility] [address] [id number] [address] [place] [address], [place] [address] Oct, [facility] [address] [id number] [address] [place] [address], [place] [address] Oct, [facility] [address] [id number] [address] [place] [address], [place] [address] Oct, [facility] [address] [id number] [address] [place] [address], [place] [address] Oct, [facility] [address] [id number] [address] [place] [address], [place] [address] Oct, [facility] [address] [id number] [address] [place] [address], [place] [address] Oct, [facility] [address] [id number] [address] [place] [address], [place] [address] Sep, [facility] [address] [id number] [address] [place] [address], [place] [address] Sep, [facility] [address] [id number] [address] [place] [address], [place] [address] Sep, [facility] [address] [id number] [address] [place] [address], [place] [address] Sep, [facility] [address] [id number] [address] [place] [address], [place] [address] Aug, [facility] [address] [id number] [address] [place] [address], [place] [address] Aug, [facility] [address] [id number] [address] [place] [address], [place] [address] Apr, [facility] [address] [id number] [address] [place] [address], [place] [address] Apr, [facility] [address] [id number] [address] [place] [address], [place] [address] Apr, [facility] [address] [id number] [address] [place] [address], [place] [address] 17 Apr, 2014 [facility] [address] [id number] [address] [place] [address], [place] [address] Apr, [facility] [address] [id number] [address] [place] [address], [place] [address] Apr, [facility] [address] [id number] [address] [place] [address], [place] [address] March, [facility] [address] [id number] [address] [place] [address], [place] [address] March, [facility] [address] [id number] [address] [place] [address], [place] [address] Dec, [facility] [address] [id number] [address] [place] [address], [place] [address] Dec, [facility] [address] [id number] [address] [place] [address], [place] [address] Sep, [facility] [address] [id number] [address] [place] [address], [place] [address] Sep, [facility] [address] [id number] [address] [place] [address], [place] [address] Aug, [facility] [address] [id number] [address] [place] [address], [place] [address] Aug, 2012 [facility] [address] [id number] [address] [place] [address], [place] [address] Aug, 2012 [facility] [address] [id number] [address] [place] [address], [place] [address] Aug, 2012 [facility] [address] [id number] [address] [place] [address], [place] [address] Aug, 2012 [facility] [address] [id number] [address] [place] [address], [place] [address] Aug, 2012 [facility] [address] [id number] [address] [place] [address], [place] [address] Aug, 2012 [facility] [address] [id number] [address] [place] [address], [place] [address] Aug, [facility] [address] [id number] [address] [place] [address], [place] [address] Aug, [facility] [address] [id number] [address] [place] [address], [place] [address] Aug, [facility] [address] [id number] [address] [place] [address], [place] [address] 27 Jul, 2013 [facility] [address] [id number] [address] [place] [address], [place] [address] Jul, [facility] [address] [id number] [address] [place] [address], [place] [address] 05 Jul, 2013 [facility] [address] [id number] [address] [place] [address], [place] [address] Jun, [facility] [address] [id number] [address] [place] [address], [place] [address] May, [facility] [address] [id number] [address] [place] [address], [place] [address] May, [facility] [address] [id number] [address] [place] [address], [place] [address] May, [facility] [address] [id number] [address] [place] [address], [place] [address] Apr, [facility] [address] [id number] [address] [place] [address], [place] [address] March, [facility] [address] [id number] [address] [place] [address], [place] [address] March, [facility] [address] [id number] [address] [place] [address], [place] [address] Feb, [facility] [address] [id number] [address] [place] [address], [place] [address] Feb, [facility] [address] [id number] [address] [place] [address], [place] [address] Feb, [facility] [address] [id number] [address] [place] [address], [place] [address] Feb, [facility] [address] [id number] [address] [place] [address], [place] [address] Jan, [facility] [address] [id number] [address] [place] [address], [place] [address] Jan, [facility] [address] [id number] [address] [place] [address], [place] [address] Jan, [facility] [address] [id number] [address] [place] [address], [place] [address] Jan, [facility] [address] [id number] [address] [place] [address], [place] [address] Dec, [facility] [address] [id number] [address] [place] [address], [place] [address] Dec, [facility] [address] [id number] [address] [place] [address], [place] [address] Dec, [facility] [address] [id number] [address] [place] [address], [place] [address] Nov, [facility] [facility] [address] [id number] [address] [place] [id number] Nov, [facility] [address] [id number] [address] [place] [address], [place] [address] Nov, [facility] [address] [id number] [address] [place] [address], [place] [address] Nov, [facility] [address] [id number] [address] [place] [address], [place] [address] Oct, [facility] [address] [id number] [address] [place] [address], [place] [address] Oct, [facility] [address] [id number] [address] [place] [address], [place] [address] Oct, [facility] [address] [id number] [address] [place] [address], [place] [address] Oct, [facility] [address] [id number] [address] [place] [address], [place] [address] Sep, [facility] [address] [id number] [address] [place] [address], [place] [address] Sep, [facility] [address] [id number] [address] [place] [address], [place] [address] Sep, [facility] [address] [id number] [address] [place] [address], [place] [address] Sep, [facility] [address] [id number] [address] [place] [address], [place] [address] Aug, [facility] [address] [id number] [address] [place] [id number] Aug, [facility] [address] [id number] [address] [place] [address], [place] [address] Aug, [facility] [address] [id number] [address] [place] [address], [place] [address] Jul, [facility] [address] [id number] [address] [place] [address], [place] [address] Jun, [facility] [address] [id number] [address] [place] [address], [place] [address] May, [facility] [address] [id number] [address] [place] [address], [place] [address] May, [facility] [address] [id number] [address] [place] [address], [place] [address] May, [facility] [address] [id number] [address] [place] [address], [place] [address] March, [facility] [address] [id number] [address] [place] [address], [place] [address] March, [facility] [address] [id number] [address] [place] [address], [place] [address] Feb, [facility] [address] [id number] [address] [place] [address], [place] [address] Feb, [facility] [address] [id number] [address] [place] [address], [place] [address] Feb, [facility] [address] [id number] [address] [place] [address], [place] [address] Feb, [facility] [address] [id number] [address] [place] [address], [place] [address] Feb, [facility] [address] [id number] [address] [place] [address], [place] [address] Feb, [facility] [address] [id number] [address] [place] [address], [place] [address] Feb, [facility] [address] [id number] [address] [place] [address], [place] [address] Feb, [facility] [address] [id number] [address] [place] [address], [place] [address] Dec, [facility] [address] [id number] [address] [place] [address], [place] [address] Nov, [facility] [address] [id number] [address] [place] [address], [place] [address] Nov, 2011 [facility] [address] [id number] [address] [place] [address], [place] [address] Nov, [facility] [address] [id number] [address] [place] [address], [place] [address] Nov, [facility] [address] [id number] [address] [place] [address], [place] [address] Nov, [facility] [address] [id number] [address] [place] [address], [place] [address] Nov, [facility] [address] [id number] [address] [place] [address], [place] [address] Oct, [facility] [address] [id number] [address] [place] [address], [place] [address] Sep, [facility] [address] [id number] [address] [place] [address], [place] [address] Sep, [facility] [address] [id number] [address] [place] [address] Sep, [facility] [address] [id number] [address] [place] [address], [place] [address] Sep, [facility] [address] [id number] [address] [place] [address], [place] [address] Aug, [facility] [address] [id number] [address] [place] [id number] Aug, [facility] [address] [id number] [address] [place] [address] Aug, [facility] [address] [id number] [address] [place] [address], [place] [address] Aug, [facility] [address] [id number] [address] [place] [address], [place] [address] Aug, [facility] [address] [id number] [address] [place] [address], [place] [address] Aug, [facility] [address] [id number] [address] [place] [id number] 17 Aug, 2011 [facility] [address] [facility] [id number] [address] [place] [id number] Aug, [facility] [address] [facility] [id number] [address] [place] [id number] 10 Aug, 2011 [facility] [address] [facility] [id number] [address] [place] [id number] Jul, [facility] [address] [facility] [id number] [address] [place] [id number] May, IMMUNIZATIONS No Known Immunizations SOCIAL HISTORY Never Assessed REASON FOR VISIT PLAN OF CARE VITAL SIGNS Height 68 in 2015-02-16 Weight 211 lbs 2015-02-16 Temperature 97.5 degrees Fahrenheit 2015-02-16 Heart Rate 88 bpm 2015-02-16 Respiratory Rate 22 2015-02-16 Blood pressure systolic 126 mmHg 2015-02-16 Blood pressure diastolic 78 mmHg 2015-02-16 MEDICATIONS Unknown Medications RESULTS No Results PROCEDURES Procedure Date Ordered Result Body Site PROS CANCER SCR; NEW PT DIGTL RECTAL EXAM February 16, 2015 HIV-1/HIV-2, SINGLE ASSAY February 16, 2015 ASSAY THYROID STIM HORMONE February 16, 2015 GLYCATED HEMOGLOBIN TEST February 16, 2015 VITAMIN B-12 February 16, 2015 TEST FOR BLOOD, FECES February 16, 2015 LIPID PANEL February 16, 2015 COMPREHEN METABOLIC PANEL February 16, 2015 VENIPUNCT, ROUTINE* February 16, 2015 INSTRUCTIONS MEDICATIONS ADMINISTERED No Known Medications MEDICAL [...]
--- OUTSIDE RECORDS SUMMARY | 2020-02-07 09:18 | XMS REPORT ---
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 Active 174031216 Problem Hypercholesterolemia E78.0 Active 69901562 Problem Secondary hypertension I15.9 Active 73141900 Problem Acquired hypothyroidism E03.9 Active 906116484 Problem Anxiety F41.9 Active 24405268 Problem Tingling in extremities R20.2 Active 61928828 Problem Personality disorder in adult F60.9 Active 53124716 Problem Generalized anxiety disorder F41.1 A ctive 12451486 Problem Gastroesophageal reflux disease without esophagitis K21.9 Active 349680932 Problem Environmental allergies Z91.09 Active 417171203 Problem Hypothyroidism (acquired) E03.9 Acti ve 829608716 Problem Acute eczema L30.9 Active 4343624 02 Problem Depression, unspecified depression type F32.9 Active 99643491 Problem Major depressive disorder, recurrent, moderate F33 .1 Active 73804588 Problem Drug-induced erectile dysfunction N52.2 Active 141210479 Problem Acute left-sided low back pain with left-sided sciatica M54.42 Active 896353514 Problem Primary insomnia F51.01 Active 397 2004 ALLERGIES No Information ENCOUNTERS Encounter Location Date Diagnosis [facility] [place] [address] [facility] [id number] [address] [place] [phone] May, [facility] [place] [address] [facility] [id number] [address] [place] [phone] Apr, [facility] [place] [address] [id number] [address] [place] [phone] March, [facility] [place] [address] [id number] [address] [place] [phone] Feb, Generalized anxiety disorder F41.1 ; Major depressive disorder, recurrent, moderate F33.1 and Personality disorder in adult F60.9 [facility] [place] [address] [id number] [address] [place] [phone] Jan, [facility] [place] [address] [id number] [address] [place] [phone] Dec, [facility] [place] [address] [id number] [address] [place] [phone] Dec, Acquired hypothyroidism E03. 9 and Other correction (current) drug therapy Z79.899 [facility] [place] [address] [id number] [address] [place] [phone] Dec, Acquired hypothyroidism E03. 9 [facility] [place] [address] [id number] [address] [place] [id number] Nov, Generalized anxiety disorder F41.1 ; Major depressive disorder, recurrent, moderate F33.1 ; Personality disorder in adult F60.9 and Other long term care administrator (current) drug therapy Z79.899 [facility] [place] [address] [id number] [address] [place] [phone] Nov, [facility] [place] [address] [id number] [address] [place] [phone] Oct, [facility] [place] [address] [id number] [address] [place] [phone] Sep, Generalized anxiety disorder F41.1 ; Major depressive disorder, recurrent, moderate F33.1 and Personality disorder in adult F60.9 [facility] [place] [address] [id number] [address] [place] [phone] Aug, [facility] [place] [address] [id number] [address] [place] [phone] Aug, [facility] [place] [address] [facility] [id number] [address] [place] [phone] Jul, Generalized anxiety disorder F41.1 [facility] [place] [address] [facility] [id number] [address] [place] [phone] 24 Jul, 2018 [facility] [place] [address] [facility] [id number] [address] [place] [phone] Jul, Acquired hypothyroidism E03. 9 [facility] [place] [address] [facility] [id number] [address] [place] [phone] Jul, Generalized anxiety disorder F41.1 [place] [address] [facility] [id number] [address] [place] [phone] 04 Jul, 2018 Generalized anxiety disorder F41.1 ; Major depressive disorder, recurrent, moderate F33.1 and Personality disorder in adult F60.9 [place] [address] [place] [id number] [address] [place] [phone] Jun, Generalized anxiety disorder F41.1 ; Major depressive disorder, recurrent, moderate F33.1 ; Primary insomnia F51.01 and Personality disorder in adult F60.9 [place] [address] [place] [id number] [address] [place] [phone] May, Acquired hypothyroidism E03. 9 [facility] [place] [address] [facility] [id number] [address] [place] [phone] May, Hypothyroidism (acquired) E0 3.9 and Gastroesophageal reflux disease without esophagitis K21.9 [facility] [place] [address] [facility] [id number] [address] [place] [phone] Apr, [facility] [address] [facility] [id number] [address] [place] [phone] Apr, Skin infection L08.9 [facility] [place] [address] [facility] [id number] [address] [place] [id number] 05 Apr, 2018 Generalized anxiety disorder F41.1 ; Major depressive disorder, recurrent, moderate F33.1 ; Primary insomnia F51.01 and Personality disorder in adult F60.9 [place] [address] [facility] [id number] [address] [place] [phone] March, Generalized anxiety disorder F41.1 ; Major depressive disorder, recurrent, moderate F33.1 and Personality disorder in adult F60.9 [facility] [place] [address] [facility] [id number] [address] [place] [phone] Feb, [facility] [place] [address] [facility] [id number] [address] [place] [phone] 06 Dec, 2017 Generalized anxiety disorder F41.1 ; Major depressive disorder, recurrent, moderate F33.1 and Personality disorder in adult F60.9 [facility] [address] [facility] [id number] [address] [place] [phone] 06 Dec, 2017 Acute left-sided low back pa in with left-sided sciatica M54.42 [facility] [place] [address] [facility] [id number] [address] [place] [phone] Nov, [facility] [place] [address] [facility] [id number] [address] [place] [phone] 05 Oct, 2017 Generalized anxiety disorder F41.1 ; Major depressive disorder, recurrent, moderate F33.1 and Personality disorder in adult F60.9 [facility] [place] [address] [facility] [id number] [address] [place] [phone] 24 Sep, 2017 Acquired hypothyroidism E03. 9 ; Hypercholesterolemia E78.0 ; Generalized anxiety disorder F41.1 and Drug-induced erectile dysfunction N52.2 [facility] [place] [address] [facility] [id number] [address] [place] [phone] Sep, [facility] [place] [address] [facility] [id number] [address] [place] [phone] Sep, Acquired hypothyroidism E03. 9 ; Hypercholesterolemia E78.0 ; Generalized anxiety disorder F41.1 and Drug-induced erectile dysfunction N52.2 [facility] [place] [address] [facility] [id number] [address] [place] [phone] 07 Sep, 2017 Generalized anxiety disorder F41.1 ; Major depressive disorder, recurrent, moderate F33.1 and Personality disorder in adult F60.9 [facility] [address] [id number] [address] [place] [address] [id number] Aug, Dental examination Z01.20 [facility] [address] [id number] [address] [place] [id number] Aug, Dental caries K02.9 [facility] [place] [address] [id number] [address] [place] [phone] Aug, [facility] [address] [id number] [address] [place] [address] [id number] Aug, Dental examination Z01.20 [facility] [place] [address] [id number] [address] [place] [phone] Jul, Major depressive disorder, r ecurrent, moderate F33.1 [facility] [place] [address] [id number] [address] [place] [phone] Jul, Generalized anxiety disorder F41.1 ; Major depressive disorder, recurrent, moderate F33.1 and Personality disorder in adult F60.9 [facility] [place] [address] [id number] [address] [place] [phone] Jul, Generalized anxiety disorder F41.1 ; Major depressive disorder, recurrent, moderate F33.1 and Personality disorder in adult F60.9 [facility] [place] [address] [id number] [address] [place] [phone] Jun, Generalized anxiety disorder F41.1 ; Major depressive disorder, recurrent, moderate F33.1 and Personality disorder in adult F60.9 [facility] [place] [address] [id number] [address] [place] [phone] Apr, Generalized anxiety disorder F41.1 ; Major depressive disorder, recurrent, moderate F33.1 and Personality disorder in adult F60.9 [facility] [place] [address] [id number] [address] [place] [phone] March, Acquired hypothyroidism E03. 9 [facility] [place] [address] [id number] [address] [place] [phone] March, Acquired hypothyroidism E03. 9 and Left lower quadrant pain R10.32 [place] [address] [place] [id number] March, Hypercholesterolemia E78.0 ; Acquired hypothyroidism E03.9 ; Insomnia, unspecified type G47.00 ; Secondary hypertension I15.9 ; Gastroesophageal reflux disease, esophagitis presence not specified K21.9 ; Tingling in extremities R20.2 ; Environmental allergies Z91.09 ; Depression, unspecified depression type F32.9 and Left lower quadrant pain R10.32 [place] [address] [id number] Feb, High risk sexual behavior Z7 2.51 [place] [address] [address] Feb, Major depressive disorder, r ecurrent, moderate F33.1 and Generalized anxiety disorder F41.1 [place] [address] [address] Dec, Major depressive disorder, r ecurrent, moderate F33.1 [place] [address] [phone] Dec, [place] [address] [id number] 16 Dec, 2016 Acquired hypothyroidism E03. 9 and High risk sexual behavior Z72.51 [place] [address] [address] Dec, Major depressive disorder, r ecurrent, moderate F33.1 and Generalized anxiety disorder F41.1 [place] [address] [place] [id number] 07 Dec, 2016 Acquired hypothyroidism E03. 9 ; Secondary hypertension I15.9 and Acute eczema L30.9 [place] [address] [address] Nov, Acquired hypothyroidism E03. 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 ; Hypercholesterolemia E78.0 ; Gastroesophageal reflux disease, esophagitis presence not specified K21.9 ; Anxiety F41.9 and Secondary hypertension I15.9 [place] [address] [address] Oct, Major depressive disorder, r ecurrent, moderate F33.1 and Generalized anxiety disorder F41.1 [place] [address] [address] Aug, [place] [address] [place] [address] Aug, Insomnia, unspecified type G 47.00 ; Acquired hypothyroidism E03.9 ; Hypercholesterolemia E78.0 and Gastroesophageal reflux disease, esophagitis presence not specified K21.9 [place] [address] [address] Jul, [place] [address] [address] Jul, Major depressive disorder, r ecurrent, in partial remission F33.41 and Generalized anxiety disorder F41.1 [place] [address] [address] Jun, [place] [address] [address] Jun, Cervical pain (neck) M54.2 a nd Cervical neuropathic pain M54.12 [place] [address] [place] [id number] [place] [phone] Apr, Insomnia, unspecified type G 47.00 ; Acquired hypothyroidism E03.9 ; Hypercholesterolemia E78.0 ; 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 ; Depression, unspecified depression type F32.9 ; 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 ; Gastroesophageal reflux disease, esophagitis presence not specified K21.9 ; Anxiety F41.9 ; Secondary hypertension I15.9 and Post- nasal drainage R09.82 [facility] [place] [address] [place] [id number] [address] [place] [phone] Apr, [facility] [place] [address] [place] [id number] [place] [phone] March, [facility] [place] [address] [place] [id number] [place] [phone] March, Unspecified hypothyroidism 2 44.9 and HTN (hypertension) 401.9 [facility] [place] [address] [place] [id number] [address] [place] [phone] March, [facility] [place] [address] [phone] Dec, [facility] [place] [address] [address] Nov, [facility] [place] [address] [address] Sep, Generalized anxiety disorder F41.1 and Major depressive disorder, recurrent, in partial remission F33.41 [place] [address] [address] Jun, Unspecified hypothyroidism 2 44.9 ; Sciatica 724.3 ; Major depressive disorder, recurrent episode, in partial or unspecified remission 296.35 ; Combined hyperlipidemia 272.2 ; HTN (hypertension) 401.9 ; Hidrosis 780.8 ; Cat allergies 477.8 and Environmental allergies V15.09 [facility] [place] [address] [place] [id number] [address] [place] [phone] Jun, Major depressive disorder, r ecurrent episode, in partial or unspecified remission 296.35 ; Insomnia, unspecified 780.52 and Generalized anxiety disorder 300.02 [facility] [place] [address] [place] [id number] [address] [place] [phone] May, [facility] [place] [address] [place] [id number] [place] [phone] Apr, [facility] [address] [id number] [address] [place] [phone] Apr, Closed mallet fracture of di stal phalanx of ring finger 816.02 [facility] [address] [id number] [address] [place] [phone] March, Depression, major, recurrent , moderate 296.32 ; Generalized anxiety disorder 300.02 and Borderline personality disorder 301.83 [facility] [place] [address] [id number] [address] [place] [address] Feb, [facility] [address] [id number] [address] [place] [phone] Feb, [facility] [address] [facility] [id number] [address] [place] [phone] Jan, [facility] [address] [facility] [id number] [address] [place] [phone] Jan, [facility] [address] [facility] [id number] [address] [place] [phone] Jan, [facility] [address] [id number] [address] [place] [phone] Jan, [facility] [address] [facility] [id number] [address] [place] [phone] Jan, [facility] [address] [facility] [id number] [address] [place] [phone] Jan, [facility] [address] [facility] [id number] [address] [place] [phone] Dec, [facility] [address] [id number] [address] [place] [phone] Dec, [facility] [address] [facility] [id number] [address] [place] [phone] Dec, [facility] [address] [facility] [id number] [address] [place] [phone] Dec, [facility] [address] [id number] [address] [place] [address], [place] [phone] 15 Nov, 2014 [facility] [address] [id number] [address] [place] [address], [place] [phone] Nov, [facility] [address] [id number] [address] [place] [address], [place] [address] Nov, [facility] [address] [id number] [address] [place] [address], [place] [address] Nov, [facility] [address] [id number] [address] [place] [address], [place] [address] Nov, [facility] [address] [id number] [address] [place] [address], [place] [address] Nov, [facility] [address] [id number] [address] [place] [address], [place] [address] Oct, [facility] [address] [id number] [address] [place] [address], [place] [address] Oct, [facility] [address] [id number] [address] [place] [address], [place] [address] Oct, [facility] [address] [id number] [address] [place] [address], [place] [address] Oct, [facility] [address] [id number] [address] [place] [address], [place] [address] Oct, [facility] [address] [id number] [address] [place] [address], [place] [address] Oct, [facility] [address] [id number] [address] [place] [address], [place] [address] Sep, [facility] [address] [id number] [address] [place] [address], [place] [address] Sep, [facility] [address] [id number] [address] [place] [address], [place] [address] Sep, [facility] [address] [id number] [address] [place] [address], [place] [address] Sep, [facility] [address] [id number] [address] [place] [address], [place] [address] Aug, [facility] [address] [id number] [address] [place] [address], [place] [address] Aug, [facility] [address] [id number] [address] [place] [address], [place] [address] Apr, [facility] [address] [id number] [address] [place] [address], [place] [address] Apr, [facility] [address] [id number] [address] [place] [address], [place] [address] Apr, [facility] [address] [id number] [address] [place] [address], [place] [address] 17 Apr, 2014 [facility] [address] [id number] [address] [place] [address], [place] [address] Apr, [facility] [address] [id number] [address] [place] [address], [place] [address] Apr, [facility] [address] [id number] [address] [place] [address], [place] [address] March, [facility] [address] [id number] [address] [place] [address], [place] [address] March, [facility] [address] [id number] [address] [place] [address], [place] [address] Dec, [facility] [address] [id number] [address] [place] [address], [place] [address] Dec, [facility] [address] [id number] [address] [place] [address], [place] [address] Sep, [facility] [address] [id number] [address] [place] [address], [place] [address] Sep, [facility] [address] [id number] [address] [place] [address], [place] [address] Aug, [facility] [address] [id number] [address] [place] [address], [place] [address] Aug, 2012 [facility] [address] [id number] [address] [place] [address], [place] [address] Aug, 2012 [facility] [address] [id number] [address] [place] [address], [place] [id number] Aug, 2012 [facility] [address] [id number] [address] [place] [address], [place] [id number] Aug, 2012 [facility] [address] [id number] [address] [place] [address], [place] [id number] Aug, 2012 [facility] [address] [id number] [address] [place] [address], [place] [id number] Aug, 2012 [facility] [address] [id number] [address] [place] [address], [place] [id number] Aug, [facility] [address] [id number] [address] [place] [address], [place] [id number] Aug, [facility] [address] [id number] [address] [place] [address], [place] [id number] Aug, [facility] [address] [id number] [address] [place] [address], [place] [id number] 27 Jul, 2013 [facility] [address] [id number] [address] [place] [address], [place] [id number] Jul, [facility] [address] [id number] [address] [place] [address], [place] [id number] 05 Jul, 2013 [facility] [address] [id number] [address] [place] [address], [place] [id number] Jun, [facility] [address] [id number] [address] [place] [address], [place] [id number] May, [facility] [address] [id number] [address] [place] [address], [place] [id number] May, [facility] [address] [id number] [address] [place] [address], [place] [address] May, [facility] [address] [id number] [address] [place] [address], [place] [address] Apr, [facility] [address] [id number] [address] [place] [address], [place] [address] March, [facility] [address] [id number] [address] [place] [address], [place] [address] March, [facility] [address] [id number] [address] [place] [address], [place] [address] Feb, [facility] [address] [id number] [address] [place] [address], [place] [address] Feb, [facility] [address] [id number] [address] [place] [address], [place] [address] Feb, [facility] [address] [id number] [address] [place] [address], [place] [address] Feb, [facility] [address] [id number] [address] [place] [address], [place] [address] Jan, [facility] [address] [id number] [address] [place] [address], [place] [address] Jan, [facility] [address] [id number] [address] [place] [address], [place] [address] Jan, [facility] [address] [id number] [address] [place] [address], [place] [address] Jan, [facility] [address] [id number] [address] [place] [address], [place] [address] Dec, [facility] [address] [id number] [address] [place] [address], [place] [address] Dec, [facility] [address] [id number] [address] [place] [address], [place] [address] Dec, [facility] [address] [id number] [address] [place] [address], [place] [address] Nov, [facility] [address] [id number] [address] [place] [id number] Nov, [facility] [address] [id number] [address] [place] [address], [place] [address] Nov, [facility] [address] [id number] [address] [place] [address], [place] [address] Nov, [facility] [address] [id number] [address] [place] [address], [place] [address] Oct, [facility] [address] [id number] [address] [place] [address], [place] [address] Oct, [facility] [address] [id number] [address] [place] [address], [place] [address] Oct, [facility] [address] [id number] [address] [place] [address], [place] [address] Oct, [facility] [address] [id number] [address] [place] [address], [place] [address] Sep, [facility] [address] [id number] [address] [place] [address], [place] [address] Sep, [facility] [address] [id number] [address] [place] [address], [place] [address] Sep, [facility] [address] [id number] [address] [place] [address], [place] [address] Sep, [facility] [address] [id number] [address] [place] [address], [place] [address] Aug, [facility] [address] [id number] [address] [place] [id number] Aug, [facility] [address] [id number] [address] [place] [address], [place] [address] Aug, [facility] [address] [id number] [address] [place] [address], [place] [address] Jul, [facility] [address] [id number] [address] [place] [address], [place] [address] Jun, [facility] [address] [id number] [address] [place] [address], [place] [address] May, [facility] [address] [id number] [address] [place] [address], [place] [address] May, [facility] [address] [id number] [address] [place] [address], [place] [address] May, [facility] [address] [id number] [address] [place] [address], [place] [address] March, [facility] [address] [id number] [address] [place] [address], [place] [address] March, [facility] [address] [id number] [address] [place] [address], [place] [address] Feb, [facility] [address] [id number] [address] [place] [address], [place] [address] Feb, [facility] [address] [id number] [address] [place] [address], [place] [address] Feb, [facility] [address] [id number] [address] [place] [address], [place] [address] Feb, [facility] [address] [id number] [address] [place] [address], [place] [address] Feb, [facility] [address] [id number] [address] [place] [address], [place] [address] Feb, [facility] [address] [id number] [address] [place] [address], [place] [address] Feb, [facility] [address] [id number] [address] [place] [address], [place] [address] Feb, [facility] [address] [id number] [address] [place] [address], [place] [address] Dec, [facility] [address] [id number] [address] [place] [address], [place] [address] Nov, [facility] [address] [id number] [address] [place] [address], [place] [address] Nov, 2011 [facility] [address] [id number] [address] [place] [address], [place] [address] Nov, [facility] [address] [id number] [address] [place] [address], [place] [address] Nov, [facility] [address] [id number] [address] [place] [address], [place] [address] Nov, [facility] [address] [id number] [address] [place] [address], [place] [address] Nov, [facility] [address] [id number] [address] [place] [address], [place] [address] Oct, [facility] [address] [id number] [address] [place] [address], [place] [address] Sep, [facility] [address] [id number] [address] [place] [address], [place] [address] Sep, [facility] [address] [id number] [address] [place] [id number] Sep, [facility] [address] [id number] [address] [place] [address], [place] [address] Sep, [facility] [address] [id number] [address] [place] [address], [place] [address] Aug, [facility] [address] [id number] [address] [place] [address] Aug, [facility] [address] [id number] [address] [place] [id number] Aug, [facility] [address] [id number] [address] [place] [address], [place] [address] Aug, [facility] [address] [id number] [address] [place] [address], [place] [address] Aug, [facility] [address] [id number] [address] [place] [address], [place] [address] Aug, [facility] [address] [id number] [address] [place] [id number] Aug, [facility] [place] [address] [facility] [id number] [address] [place] [id number] Aug, [facility] [place] [address] [facility] [id number] [address] [place] [id number] Aug, [facility] [place] [address] [facility] [id number] [address] [place] [id number] Jul, [facility] [place] [address] [facility] [id number] [address] [place] [id number] May, IMMUNIZATIONS No Known Immunizations SOCIAL HISTORY Never Assessed REASON FOR VISIT PLAN OF CARE VITAL SIGNS Blood pressure systolic 116 mmHg 2015-01-21 Blood pressure diastolic 72 mmHg 2015-01-21 MEDICATIONS Unknown Medications RESULTS No Results PROCEDURES [...]
--- OUTSIDE RECORDS SUMMARY | 2020-02-07 09:19 | XMS REPORT ---
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 Active 369585011 Problem Hypercholesterolemia E78.0 Active 69716642 Problem Secondary hypertension I15.9 Active 28854769 Problem Acquired hypothyroidism E03.9 Active 495141973 Problem Anxiety F41.9 Active 70021041 Problem Tingling in extremities R20.2 Active 39504704 Problem Personality disorder in adult F60.9 Active 83719699 Problem Generalized anxiety disorder F41.1 A ctive 27560538 Problem Gastroesophageal reflux disease without esophagitis K21.9 Active 304186989 Problem Environmental allergies Z91.09 Active 115641758 Problem Hypothyroidism (acquired) E03.9 Acti ve 468743892 Problem Acute eczema L30.9 Active 8470991 02 Problem Depression, unspecified depression type F32.9 Active 01105348 Problem Major depressive disorder, recurrent, moderate F33 .1 Active 45115638 Problem Drug-induced erectile dysfunction N52.2 Active 787682546 Problem Acute left-sided low back pain with left-sided sciatica M54.42 Active 254145793 Problem Primary insomnia F51.01 Active 397 2004 ALLERGIES No Information ENCOUNTERS Encounter Location Date Diagnosis [facility] [address] [facility] [id number] [address] [place] [phone] May, [facility] [address] [facility] [id number] [address] [place] [phone] Apr, [facility] [address] [id number] [address] [place] [phone] March, [facility] [address] [id number] [address] [place] [phone] Feb, Generalized anxiety disorder F41.1 ; Major depressive disorder, recurrent, moderate F33.1 and Personality disorder in adult F60.9 [facility] [address] [id number] [address] [place] [phone] Jan, [facility] [address] [id number] [address] [place] [phone] Dec, [facility] [address] [id number] [address] [place] [address] Dec, Acquired hypothyroidism E03. 9 and Other mcc (current) drug therapy Z79.899 [facility] [address] [id number] [address] [place] [id number] Dec, Acquired hypothyroidism E03. 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 [facility] [address] [id number] [address] [place] [phone] Nov, [facility] [address] [id number] [address] [place] [phone] Oct, [facility] [address] [id number] [address] [place] [id number] Sep, Generalized anxiety disorder F41.1 ; Major depressive disorder, recurrent, moderate F33.1 and Personality disorder in adult F60.9 [facility] [address] [id number] [address] [place] [phone] Aug, [facility] [address] [id number] [address] [place] [phone] Aug, [facility] [address] [facility] [id number] [address] [place] [phone] Jul, Generalized anxiety disorder F41.1 [facility] [address] [facility] [id number] [address] [place] [phone] 24 Jul, 2018 [facility] [address] [facility] [id number] [address] [place] [phone] Jul, Acquired hypothyroidism E03. 9 [facility] [address] [facility] [id number] [address] [place] [phone] Jul, Generalized anxiety disorder F41.1 [place] [address] [facility] [id number] [address] [place] [phone] 04 Jul, 2018 Generalized anxiety disorder F41.1 ; Major depressive disorder, recurrent, moderate F33.1 and Personality disorder in adult F60.9 [place] [address] [place] [id number] [address] [place] [phone] Jun, Generalized anxiety disorder F41.1 ; Major depressive disorder, recurrent, moderate F33.1 ; Primary insomnia F51.01 and Personality disorder in adult F60.9 [place] [address] [place] [id number] [address] [place] [phone] May, Acquired hypothyroidism E03. 9 [facility] [address] [facility] [id number] [address] [place] [address] May, Hypothyroidism (acquired) E0 3.9 and Gastroesophageal reflux disease without esophagitis K21.9 [facility] [address] [facility] [id number] [address] [place] [phone] Apr, [facility] [address] [facility] [id number] [address] [place] [phone] Apr, Skin infection L08.9 [facility] [address] [facility] [id number] [address] [place] [phone] 05 Apr, 2018 Generalized anxiety disorder F41.1 ; Major depressive disorder, recurrent, moderate F33.1 ; Primary insomnia F51.01 and Personality disorder in adult F60.9 [place] [id number] [facility] [id number] [address] [place] [phone] March, Generalized anxiety disorder F41.1 ; Major depressive disorder, recurrent, moderate F33.1 and Personality disorder in adult F60.9 [facility] [address] [facility] [id number] [address] [place] [phone] Feb, [facility] [address] [facility] [id number] [address] [place] [phone] 06 Dec, 2017 Generalized anxiety disorder F41.1 ; Major depressive disorder, recurrent, moderate F33.1 and Personality disorder in adult F60.9 [facility] [address] [facility] [id number] [address] [place] [phone] 06 Dec, 2017 Acute left-sided low back pa in with left-sided sciatica M54.42 [facility] [address] [facility] [id number] [address] [place] [phone] Nov, [facility] [address] [facility] [id number] [address] [place] [phone] 05 Oct, 2017 Generalized anxiety disorder F41.1 ; Major depressive disorder, recurrent, moderate F33.1 and Personality disorder in adult F60.9 [facility] [address] [facility] [id number] [address] [place] [phone] 24 Sep, 2017 Acquired hypothyroidism E03. 9 ; Hypercholesterolemia E78.0 ; Generalized anxiety disorder F41.1 and Drug-induced erectile dysfunction N52.2 [facility] [address] [facility] [id number] [address] [place] [phone] Sep, [facility] [address] [facility] [id number] [address] [place] [phone] Sep, Acquired hypothyroidism E03. 9 ; Hypercholesterolemia E78.0 ; Generalized anxiety disorder F41.1 and Drug-induced erectile dysfunction N52.2 [facility] [address] [facility] [id number] [address] [place] [phone] 07 Sep, 2017 Generalized anxiety disorder F41.1 ; Major depressive disorder, recurrent, moderate F33.1 and Personality disorder in adult F60.9 [facility] [address] [id number] [address] [place] [id number] Aug, Dental examination Z01.20 [facility] [address] [id number] [address] [place] [id number] Aug, Dental caries K02.9 [facility] [address] [id number] [address] [place] [phone] Aug, [facility] [address] [id number] [address] [place] [phone] Aug, Dental examination Z01.20 [facility] [address] [id number] [address] [place] [phone] Jul, Major depressive disorder, r ecurrent, moderate F33.1 [facility] [address] [id number] [address] [place] [phone] Jul, Generalized anxiety disorder F41.1 ; Major depressive disorder, recurrent, moderate F33.1 and Personality disorder in adult F60.9 [facility] [address] [id number] [address] [place] [phone] Jul, Generalized anxiety disorder F41.1 ; Major depressive disorder, recurrent, moderate F33.1 and Personality disorder in adult F60.9 [facility] [address] [id number] [address] [place] [phone] Jun, Generalized anxiety disorder F41.1 ; Major depressive disorder, recurrent, moderate F33.1 and Personality disorder in adult F60.9 [facility] [address] [id number] [address] [place] [phone] Apr, Generalized anxiety disorder F41.1 ; Major depressive disorder, recurrent, moderate F33.1 and Personality disorder in adult F60.9 [facility] [address] [id number] [address] [place] [address] March, Acquired hypothyroidism E03. 9 [facility] [address] [id number] [address] [place] [phone] March, Acquired hypothyroidism E03. 9 and Left lower quadrant pain R10.32 [place] [address] [place] [id number] March, Hypercholesterolemia E78.0 ; Acquired hypothyroidism E03.9 ; Insomnia, unspecified type G47.00 ; Secondary hypertension I15.9 ; Gastroesophageal reflux disease, esophagitis presence not specified K21.9 ; Tingling in extremities R20.2 ; Environmental allergies Z91.09 ; Depression, unspecified depression type F32.9 and Left lower quadrant pain R10.32 [place] [address] [address] Feb, High risk sexual behavior Z7 2.51 [place] [address] [address] Feb, Major depressive disorder, r ecurrent, moderate F33.1 and Generalized anxiety disorder F41.1 [place] [address] [address] Dec, Major depressive disorder, r ecurrent, moderate F33.1 [place] [address] [address] Dec, [place] [address] [phone] 16 Dec, 2016 Acquired hypothyroidism E03. 9 and High risk sexual behavior Z72.51 [place] [address] [address] Dec, Major depressive disorder, r ecurrent, moderate F33.1 and Generalized anxiety disorder F41.1 [place] [address] [place] [id number] 07 Dec, 2016 Acquired hypothyroidism E03. 9 ; Secondary hypertension I15.9 and Acute eczema L30.9 [place] [address] [address] Nov, Acquired hypothyroidism E03. 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 ; Hypercholesterolemia E78.0 ; Gastroesophageal reflux disease, esophagitis presence not specified K21.9 ; Anxiety F41.9 and Secondary hypertension I15.9 [place] [address] [address] Oct, Major depressive disorder, r ecurrent, moderate F33.1 and Generalized anxiety disorder F41.1 [place] [address] [address] Aug, [place] [address] [place] [phone] Aug, Insomnia, unspecified type G 47.00 ; Acquired hypothyroidism E03.9 ; Hypercholesterolemia E78.0 and Gastroesophageal reflux disease, esophagitis presence not specified K21.9 [place] [address] [address] Jul, [place] [address] [address] Jul, Major depressive disorder, r ecurrent, in partial remission F33.41 and Generalized anxiety disorder F41.1 [place] [address] [address] Jun, [place] [address] [address] Jun, Cervical pain (neck) M54.2 a nd Cervical neuropathic pain M54.12 [place] [address] [place] [id number] [place] [address] Apr, Insomnia, unspecified type G 47.00 ; Acquired hypothyroidism E03.9 ; Hypercholesterolemia E78.0 ; 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 ; Depression, unspecified depression type F32.9 ; 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 ; Gastroesophageal reflux disease, esophagitis presence not specified K21.9 ; Anxiety F41.9 ; Secondary hypertension I15.9 and Post- nasal drainage R09.82 [facility] [address] [place] [id number] [address] [place] [address] Apr, [facility] [address] [place] [id number] [place] [address] March, [facility] [address] [place] [id number] [place] [address] March, Unspecified hypothyroidism 2 44.9 and HTN (hypertension) 401.9 [facility] [address] [place] [id number] [address] [place] [phone] March, [facility] [address] [address] Dec, [facility] [address] [address] Nov, [facility] [address] [address] Sep, Generalized anxiety disorder F41.1 and Major depressive disorder, recurrent, in partial remission F33.41 [place] [address] [address] Jun, Unspecified hypothyroidism 2 44.9 ; Sciatica 724.3 ; Major depressive disorder, recurrent episode, in partial or unspecified remission 296.35 ; Combined hyperlipidemia 272.2 ; HTN (hypertension) 401.9 ; Hidrosis 780.8 ; Cat allergies 477.8 and Environmental allergies V15.09 [facility] [address] [place] [id number] [address] [place] [phone] Jun, Major depressive disorder, r ecurrent episode, in partial or unspecified remission 296.35 ; Insomnia, unspecified 780.52 and Generalized anxiety disorder 300.02 [facility] [address] [place] [id number] [address] [place] [phone] May, [facility] [address] [place] [id number] [place] [phone] Apr, [facility] [address] [id number] [address] [place] [phone] Apr, Closed mallet fracture of di stal phalanx of ring finger 816.02 [facility] [address] [id number] [address] [place] [address] March, Depression, major, recurrent , moderate 296.32 ; Generalized anxiety disorder 300.02 and Borderline personality disorder 301.83 [facility] [address] [id number] [address] [place] [phone] Feb, [facility] [address] [id number] [address] [place] [phone] Feb, [facility] [address] [facility] [id number] [address] [place] [phone] Jan, [facility] [address] [facility] [id number] [address] [place] [phone] Jan, [facility] [address] [facility] [id number] [address] [place] [phone] Jan, [facility] [address] [id number] [address] [place] [phone] Jan, [facility] [address] [facility] [id number] [address] [place] [phone] Jan, [facility] [address] [facility] [id number] [address] [place] [phone] Jan, [facility] [address] [facility] [id number] [address] [place] [phone] Dec, [facility] [address] [id number] [address] [place] [phone] Dec, [facility] [address] [facility] [id number] [address] [place] [phone] Dec, [facility] [address] [facility] [id number] [address] [place] [phone] Dec, [facility] [address] [id number] [address] [place] [address], [place] [phone] 15 Nov, 2014 [facility] [address] [id number] [address] [place] [address], [place] [address] Nov, [facility] [address] [id number] [address] [place] [address], [place] [address] Nov, [facility] [address] [id number] [address] [place] [address], [place] [address] Nov, [facility] [address] [id number] [address] [place] [address], [place] [address] Nov, [facility] [address] [id number] [address] [place] [address], [place] [address] Nov, [facility] [address] [id number] [address] [place] [address], [place] [address] Oct, [facility] [address] [id number] [address] [place] [address], [place] [address] Oct, [facility] [address] [id number] [address] [place] [address], [place] [address] Oct, [facility] [address] [id number] [address] [place] [address], [place] [address] Oct, [facility] [address] [id number] [address] [place] [address], [place] [address] Oct, [facility] [address] [id number] [address] [place] [address], [place] [address] Oct, [facility] [address] [id number] [address] [place] [address], [place] [address] Sep, [facility] [address] [id number] [address] [place] [address], [place] [address] Sep, [facility] [address] [id number] [address] [place] [address], [place] [address] Sep, [facility] [address] [id number] [address] [place] [address], [place] [address] Sep, [facility] [address] [id number] [address] [place] [address], [place] [address] Aug, [facility] [address] [id number] [address] [place] [address], [place] [address] Aug, [facility] [address] [id number] [address] [place] [address], [place] [address] Apr, [facility] [address] [id number] [address] [place] [address], [place] [address] Apr, [facility] [address] [id number] [address] [place] [address], [place] [address] Apr, [facility] [address] [id number] [address] [place] [address], [place] [address] 17 Apr, 2014 [facility] [address] [id number] [address] [place] [address], [place] [address] Apr, [facility] [address] [id number] [address] [place] [address], [place] [address] Apr, [facility] [address] [id number] [address] [place] [address], [place] [address] March, [facility] [address] [id number] [address] [place] [address], [place] [address] March, [facility] [address] [id number] [address] [place] [address], [place] [address] Dec, [facility] [address] [id number] [address] [place] [address], [place] [address] Dec, [facility] [address] [id number] [address] [place] [address], [place] [address] Sep, [facility] [address] [id number] [address] [place] [address], [place] [address] Sep, [facility] [address] [id number] [address] [place] [address], [place] [address] Aug, [facility] [address] [id number] [address] [place] [address], [place] [address] Aug, 2012 [facility] [address] [id number] [address] [place] [address], [place] [address] Aug, 2012 [facility] [address] [id number] [address] [place] [address], [place] [address] Aug, 2012 [facility] [address] [id number] [address] [place] [address], [place] [address] Aug, 2012 [facility] [address] [id number] [address] [place] [address], [place] [address] Aug, 2012 [facility] [address] [id number] [address] [place] [address], [place] [address] Aug, 2012 [facility] [address] [id number] [address] [place] [address], [place] [address] Aug, [facility] [address] [id number] [address] [place] [address], [place] [address] Aug, [facility] [address] [id number] [address] [place] [address], [place] [address] Aug, [facility] [address] [id number] [address] [place] [address], [place] [address] 27 Jul, 2013 [facility] [address] [id number] [address] [place] [address], [place] [address] Jul, [facility] [address] [id number] [address] [place] [address], [place] [address] 05 Jul, 2013 [facility] [address] [id number] [address] [place] [address], [place] [address] Jun, [facility] [address] [id number] [address] [place] [address], [place] [address] May, [facility] [address] [id number] [address] [place] [address], [place] [address] May, [facility] [address] [id number] [address] [place] [address], [place] [address] May, [facility] [address] [id number] [address] [place] [address], [place] [address] Apr, [facility] [address] [id number] [place] [address], [place] [id number] March, [facility] [address] [id number] [place] [address], [place] [id number] March, [facility] [address] [id number] [place] [address], [place] [id number] Feb, [facility] [address] [id number] [place] [address], [place] [id number] Feb, [facility] [address] [id number] [place] [address], [place] [id number] Feb, [facility] [address] [id number] [place] [address], [place] [id number] Feb, [facility] [address] [id number] [place] [address], [place] [id number] Jan, [facility] [address] [id number] [place] [address], [place] [id number] Jan, [facility] [address] [id number] [address] [place] [address], [place] [address] Jan, [facility] [address] [id number] [address] [place] [address], [place] [address] Jan, [facility] [address] [id number] [address] [place] [address], [place] [address] Dec, [facility] [address] [id number] [address] [place] [address], [place] [id number] Dec, [facility] [address] [id number] [address] [place] [address], [place] [id number] Dec, [facility] [address] [id number] [place] [address], [place] [address] Nov, [facility] [address] [id number] [address] [place] [id number] Nov, [facility] [address] [id number] [address] [place] [address], [place] [id number] Nov, [facility] [address] [id number] [address] [place] [address], [place] [id number] Nov, [facility] [address] [id number] [address] [place] [address], [place] [id number] Oct, [facility] [address] [id number] [address] [place] [address], [place] [id number] Oct, [facility] [address] [id number] [address] [place] [address], [place] [id number] Oct, [facility] [address] [id number] [address] [place] [address], [place] [id number] Oct, [facility] [address] [id number] [address] [place] [address], [place] [address] Sep, [facility] [address] [id number] [address] [place] [address], [place] [id number] Sep, [facility] [address] [id number] [address] [place] [address], [place] [address] Sep, [facility] [address] [id number] [address] [place] [address], [place] [id number] Sep, [facility] [address] [id number] [address] [place] [address], [place] [id number] Aug, [facility] [address] [id number] [address] [place] [id number] Aug, [facility] [address] [id number] [address] [place] [address], [place] [id number] Aug, [facility] [address] [id number] [address] [place] [address], [place] [id number] Jul, [facility] [address] [id number] [address] [place] [address], [place] [id number] Jun, [facility] [address] [id number] [address] [place] [address], [place] [address] May, [facility] [address] [id number] [address] [place] [address], [place] [id number] May, [facility] [address] [id number] [address] [place] [address], [place] [address] May, [facility] [address] [id number] [address] [place] [address], [place] [address] March, [facility] [address] [id number] [address] [place] [address], [place] [id number] March, [facility] [address] [id number] [address] [place] [address], [place] [id number] Feb, [facility] [address] [id number] [address] [place] [address], [place] [address] Feb, [facility] [address] [id number] [address] [place] [address], [place] [id number] Feb, [facility] [address] [id number] [address] [place] [address], [place] [id number] Feb, [facility] [address] [id number] [address] [place] [address], [place] [id number] Feb, [facility] [address] [id number] [address] [place] [address], [place] [id number] Feb, [facility] [address] [id number] [address] [place] [address], [place] [id number] Feb, [facility] [address] [id number] [address] [place] [address], [place] [address] Feb, [facility] [address] [id number] [address] [place] [address], [place] [address] Dec, [facility] [address] [id number] [address] [place] [address], [place] [id number] Nov, [facility] [address] [id number] [address] [place] [address], [place] [address] Nov, 2011 [facility] [address] [id number] [address] [place] [address], [place] [id number] Nov, [facility] [address] [id number] [address] [place] [address], [place] [id number] Nov, [facility] [address] [id number] [address] [place] [address], [place] [address] Nov, [facility] [address] [id number] [address] [place] [address], [place] [address] Nov, [facility] [address] [id number] [address] [place] [address], [place] [id number] Oct, [facility] [address] [id number] [address] [place] [address], [place] [address] Sep, [facility] [address] [id number] [address] [place] [address], [place] [id number] Sep, [facility] [address] [id number] [address] [place] [id number] Sep, [facility] [address] [id number] [address] [place] [address], [place] [id number] Sep, [facility] [address] [id number] [address] [place] [address], [place] [id number] Aug, [facility] [address] [id number] [address] [place] [id number] Aug, [facility] [address] [id number] [address] [place] [id number] Aug, [facility] [address] [id number] [address] [place] [address], [place] [id number] Aug, [facility] [address] [id number] [address] [place] [address], [place] [id number] Aug, [facility] [address] [id number] [address] [place] [address], [place] [id number] Aug, [facility] [address] [id number] [address] [place] [id number] Aug, [facility] [address] [facility] [id number] [address] [place] [id number] Aug, [facility] [address] [facility] [id number] [address] [place] [id number] Aug, [facility] [address] [facility] [id number] [address] [place] [phone] Jul, [facility] [address] [facility] [id number] [address] [place] [id number] May, IMMUNIZATIONS No Known Immunizations SOCIAL HISTORY [...]
--- OUTSIDE RECORDS SUMMARY | 2020-02-07 09:19 | XMS REPORT ---
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 87044336 Problem 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 Active 550753592 Problem Hypercholesterolemia E78.0 Active 24202031 Problem Secondary hypertension I15.9 Active 74763062 Problem Acquired hypothyroidism E03.9 Active 277391832 Problem Anxiety F41.9 Active 19738085 Problem Tingling in extremities R20.2 Active 77029899 Problem Personality disorder in adult F60.9 Active 15742663 Problem Generalized anxiety disorder F41.1 A ctive 47298488 Problem Gastroesophageal reflux disease without esophagitis K21.9 Active 092680110 Problem Environmental allergies Z91.09 Active 909314052 Problem Hypothyroidism (acquired) E03.9 Acti ve 460919705 Problem Acute eczema L30.9 Active 5698076 02 Problem Depression, unspecified depression type F32.9 Active 06316599 Problem Major depressive disorder, recurrent, moderate F33 .1 Active 16244850 Problem Drug-induced erectile dysfunction N52.2 Active 139546169 Problem Acute left-sided low back pain with left-sided sciatica M54.42 Active 803303493 Problem Primary insomnia F51.01 Active 397 2004 ALLERGIES No Information ENCOUNTERS Encounter Location Date Diagnosis [facility] [address] [facility] [id number] [address] [place] [address] May, [facility] [address] [facility] [id number] [address] [place] [address] Feb, Generalized anxiety disorder F41.1 ; Major depressive disorder, recurrent, moderate F33.1 and Personality disorder in adult F60.9 [facility] [address] [id number] [address] [place] [address] Jan, [facility] [address] [id number] [address] [place] [address] Dec, [facility] [address] [id number] [address] [place] [address] Dec, Acquired hypothyroidism E03. 9 and Other alf (current) drug therapy Z79.899 [facility] [address] [id number] [address] [place] [address] Dec, Acquired hypothyroidism E03. 9 [facility] [address] [id number] [address] [place] [address] Nov, Generalized anxiety disorder F41.1 ; Major depressive disorder, recurrent, moderate F33.1 ; Personality disorder in adult F60.9 and Other watermaster (current) drug therapy Z79.899 [facility] [address] [id number] [address] [place] [address] Nov, [facility] [address] [id number] [address] [place] [address] Oct, [facility] [address] [id number] [address] [place] [address] Sep, Generalized anxiety disorder F41.1 ; Major depressive disorder, recurrent, moderate F33.1 and Personality disorder in adult F60.9 [facility] [address] [id number] [address] [place] [address] Aug, [facility] [address] [id number] [address] [place] [address] Aug, [facility] [address] [facility] [id number] [address] [place] [address] Jul, Generalized anxiety disorder F41.1 [facility] [address] [id number] [address] [place] [address] Jul, [facility] [address] [facility] [id number] [address] [place] [address] Jul, Acquired hypothyroidism E03. 9 [facility] [address] [facility] [id number] [address] [place] [address] Jul, Generalized anxiety disorder F41.1 [facility] [address] [facility] [id number] [address] [place] [address] Jul, Generalized anxiety disorder F41.1 ; Major depressive disorder, recurrent, moderate F33.1 and Personality disorder in adult F60.9 [facility] [address] [facility] [id number] [address] [place] [address] Jun, Generalized anxiety disorder F41.1 ; Major depressive disorder, recurrent, moderate F33.1 ; Primary insomnia F51.01 and Personality disorder in adult F60.9 [place] [address] [facility] [id number] [address] [place] [address] May, Acquired hypothyroidism E03. 9 [facility] [address] [facility] [id number] [address] [place] [address] May, Hypothyroidism (acquired) E0 3.9 and Gastroesophageal reflux disease without esophagitis K21.9 [facility] [address] [facility] [id number] [address] [place] [address] Apr, [facility] [address] [facility] [id number] [address] [place] [address] Apr, Skin infection L08.9 [facility] [address] [facility] [id number] [address] [place] [id number] 05 Apr, 2018 Generalized anxiety disorder F41.1 ; Major depressive disorder, recurrent, moderate F33.1 ; Primary insomnia F51.01 and Personality disorder in adult F60.9 [facility] [address] [facility] [id number] [address] [place] [address] March, Generalized anxiety disorder F41.1 ; Major depressive disorder, recurrent, moderate F33.1 and Personality disorder in adult F60.9 [facility] [address] [facility] [id number] [address] [place] [address] Feb, [facility] [address] [facility] [id number] [address] [place] [address] Dec, Generalized anxiety disorder F41.1 ; Major depressive disorder, recurrent, moderate F33.1 and Personality disorder in adult F60.9 [facility] [address] [facility] [id number] [address] [place] [address] Dec, Acute left-sided low back pa in with left-sided sciatica M54.42 [facility] [address] [facility] [id number] [address] [place] [address] Nov, [facility] [address] [facility] [id number] [address] [place] [address] Oct, Generalized anxiety disorder F41.1 ; Major depressive disorder, recurrent, moderate F33.1 and Personality disorder in adult F60.9 [facility] [address] [facility] [id number] [address] [place] [address] Sep, Acquired hypothyroidism E03. 9 ; Hypercholesterolemia E78.0 ; Generalized anxiety disorder F41.1 and Drug-induced erectile dysfunction N52.2 [facility] [address] [facility] [id number] [address] [place] [address] Sep, [facility] [address] [facility] [id number] [address] [place] [address] Sep, Acquired hypothyroidism E03. 9 ; Hypercholesterolemia E78.0 ; Generalized anxiety disorder F41.1 and Drug-induced erectile dysfunction N52.2 [facility] [address] [facility] [id number] [address] [place] [address] Sep, Generalized anxiety disorder F41.1 ; Major depressive disorder, recurrent, moderate F33.1 and Personality disorder in adult F60.9 [facility] [address] [id number] [address] [place] [id number] Aug, Dental examination Z01.20 [facility] [address] [id number] [address] [place] [address] [id number] Aug, Dental caries K02.9 [facility] [address] [id number] [address] [place] [address] 13 Aug, 2017 [facility] [address] [id number] [address] [place] [id number] 10 Aug, 2017 Dental examination Z01.20 [facility] [address] [facility] [id number] [address] [place] [address] 20 Jul, 2017 Major depressive disorder, r ecurrent, moderate F33.1 [facility] [address] [facility] [id number] [address] [place] [id number] 19 Jul, 2017 Generalized anxiety disorder F41.1 ; Major depressive disorder, recurrent, moderate F33.1 and Personality disorder in adult F60.9 [facility] [address] [facility] [id number] [address] [place] [id number] 08 Jul, 2017 Generalized anxiety disorder F41.1 ; Major depressive disorder, recurrent, moderate F33.1 and Personality disorder in adult F60.9 [facility] [address] [facility] [id number] [address] [place] [address] Jun, Generalized anxiety disorder F41.1 ; Major depressive disorder, recurrent, moderate F33.1 and Personality disorder in adult F60.9 [facility] [address] [facility] [id number] [address] [place] [address] Apr, Generalized anxiety disorder F41.1 ; Major depressive disorder, recurrent, moderate F33.1 and Personality disorder in adult F60.9 [facility] [address] [facility] [id number] [address] [place] [address] March, Acquired hypothyroidism E03. 9 [facility] [address] [facility] [id number] [address] [place] [address] March, Acquired hypothyroidism E03. 9 and Left lower quadrant pain R10.32 [facility] [address] [facility] [id number] [address] [place] [address] March, Hypercholesterolemia E78.0 ; Acquired hypothyroidism E03.9 ; Insomnia, unspecified type G47.00 ; Secondary hypertension I15.9 ; Gastroesophageal reflux disease, esophagitis presence not specified K21.9 ; Tingling in extremities R20.2 ; Environmental allergies Z91.09 ; Depression, unspecified depression type F32.9 and Left lower quadrant pain R10.32 [place] [address] [place] [id number] Feb, High risk sexual behavior Z7 2.51 [place] [address] Feb, Major depressive disorder, r ecurrent, moderate F33.1 and Generalized anxiety disorder F41.1 [place] [id number] 22 Dec, 2016 Major depressive disorder, r ecurrent, moderate F33.1 [place] [address] [place] [address] 17 Dec, 2016 [place] [address] [address] 16 Dec, 2016 Acquired hypothyroidism E03. 9 and High risk sexual behavior Z72.51 [place] [address] [place] [address] 07 Dec, 2016 Major depressive disorder, r ecurrent, moderate F33.1 and Generalized anxiety disorder F41.1 [place] [address] [place] [id number] 07 Dec, 2016 Acquired hypothyroidism E03. 9 ; Secondary hypertension I15.9 and Acute eczema L30.9 [place] [address] [place] [address] Nov, Acquired hypothyroidism E03. 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 ; Hypercholesterolemia E78.0 ; Gastroesophageal reflux disease, esophagitis presence not specified K21.9 ; Anxiety F41.9 and Secondary hypertension I15.9 [place] [address] [place] [id number] [address] [place] [phone] Oct, Major depressive disorder, r ecurrent, moderate F33.1 and Generalized anxiety disorder F41.1 [place] [address] [facility] [id number] [address] [place] [address] Aug, [place] [address] [place] [id number] [place] [address] Aug, Insomnia, unspecified type G 47.00 ; Acquired hypothyroidism E03.9 ; Hypercholesterolemia E78.0 and Gastroesophageal reflux disease, esophagitis presence not specified K21.9 [place] [address] [address] Jul, [place] [address] [place] [id number] [place] [address] Jul, Major depressive disorder, r ecurrent, in partial remission F33.41 and Generalized anxiety disorder F41.1 [place] [address] [place] [id number] [place] [address] Jun, [address] [address] Jun, Cervical pain (neck) M54.2 a nd Cervical neuropathic pain M54.12 [place] [address] [place] [id number] [place] [address] Apr, Insomnia, unspecified type G 47.00 ; Acquired hypothyroidism E03.9 ; Hypercholesterolemia E78.0 ; 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 ; Depression, unspecified depression type F32.9 ; 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 ; Gastroesophageal reflux disease, esophagitis presence not specified K21.9 ; Anxiety F41.9 ; Secondary hypertension I15.9 and Post- nasal drainage R09.82 [place] [address] [place] [id number] [address] [place] [address] Apr, [place] [address] [address] March, [facility] [address] [address] March, Unspecified hypothyroidism 2 44.9 and HTN (hypertension) 401.9 [place] [address] [place] [id number] [address] [place] [address] March, [facility] [address] [address] Dec, [facility] [address] [address] Nov, [place] [address] [address] Sep, Generalized anxiety disorder F41.1 and Major depressive disorder, recurrent, in partial remission F33.41 [place] [address] [address] Jun, Unspecified hypothyroidism 2 44.9 ; Sciatica 724.3 ; Major depressive disorder, recurrent episode, in partial or unspecified remission 296.35 ; Combined hyperlipidemia 272.2 ; HTN (hypertension) 401.9 ; Hidrosis 780.8 ; Cat allergies 477.8 and Environmental allergies V15.09 [place] [address] [place] [id number] [address] [place] [address] Jun, Major depressive disorder, r ecurrent episode, in partial or unspecified remission 296.35 ; Insomnia, unspecified 780.52 and Generalized anxiety disorder 300.02 [facility] [address] [place] [id number] [address] [place] [address] May, [place] [address] [address] Apr, [place] [address] [address] Apr, Closed mallet fracture of di stal phalanx of ring finger 816.02 [place] [address] [place] [address] March, Depression, major, recurrent , moderate 296.32 ; Generalized anxiety disorder 300.02 and Borderline personality disorder 301.83 [facility] [address] [id number] [address] [place] [address] Feb, [facility] [address] [facility] [id number] [address] [place] [address] Feb, [facility] [address] [id number] [address] [place] [address] Jan, [facility] [address] [id number] [address] [place] [address] Jan, [facility] [address] [id number] [address] [place] [address] Jan, [facility] [address] [id number] [address] [place] [address] Jan, [facility] [address] [id number] [address] [place] [address] Jan, [facility] [address] [id number] [address] [place] [address] Jan, [facility] [address] [id number] [address] [place] [id number] Dec, [facility] [address] [id number] [address] [place] [address] Dec, [facility] [address] [id number] [address] [place] [address] Dec, [facility] [address] [id number] [address] [place] [address] Dec, [facility] [address] [id number] [address] [place] [address] Nov, [facility] [address] [facility] [id number] [address] [place] [address] Nov, [facility] [address] [id number] [address] [place] [address], [place] [address] Nov, [facility] [address] [id number] [address] [place] [address], [place] [address] Nov, [facility] [address] [id number] [address] [place] [address], [place] [address] Nov, [facility] [address] [id number] [address] [place] [address], [place] [address] Nov, [facility] [address] [id number] [address] [place] [address], [place] [address] Oct, [facility] [address] [id number] [address] [place] [address], [place] [address] Oct, [facility] [address] [id number] [address] [place] [address], [place] [address] Oct, [facility] [address] [id number] [address] [place] [address], [place] [address] Oct, [facility] [address] [id number] [address] [place] [address], [place] [address] Oct, [facility] [address] [id number] [address] [place] [address], [place] [address] Oct, [facility] [address] [id number] [address] [place] [address], [place] [address] Sep, [facility] [address] [id number] [address] [place] [address], [place] [address] Sep, [facility] [address] [id number] [address] [place] [address], [place] [address] Sep, [facility] [address] [id number] [address] [place] [address], [place] [address] Sep, [facility] [address] [id number] [address] [place] [address], [place] [address] Aug, [facility] [address] [id number] [address] [place] [address], [place] [address] Aug, [facility] [address] [id number] [facility] [place] [address] Apr, [facility] [address] [id number] [address] [place] [address], [place] [address] Apr, [facility] [address] [id number] [address] [place] [address], [place] [address] 17 Apr, 2014 [facility] [address] [id number] [address] [place] [address], [place] [address] 17 Apr, 2014 [facility] [address] [id number] [address] [place] [address], [place] [address] Apr, [facility] [address] [id number] [address] [place] [address], [place] [address] Apr, [facility] [address] [id number] [address] [place] [address], [place] [address] March, [facility] [address] [id number] [address] [place] [address], [place] [address] March, [facility] [address] [id number] [address] [place] [address], [place] [address] Dec, [facility] [address] [id number] [address] [place] [address], [place] [address] Dec, [facility] [address] [id number] [address] [place] [address], [place] [address] Sep, [facility] [address] [id number] [address] [place] [address], [place] [address] Sep, [facility] [address] [id number] [address] [place] [address], [place] [address] Aug, [facility] [address] [id number] [address] [place] [address], [place] [address] Aug, [facility] [address] [id number] [address] [place] [address], [place] [address] Aug, [facility] [address] [id number] [address] [place] [address], [place] [address] Aug, [facility] [address] [id number] [address] [place] [address], [place] [address] Aug, [facility] [address] [id number] [address] [place] [address], [place] [address] Aug, [facility] [address] [id number] [address] [place] [address], [place] [address] Aug, [facility] [address] [id number] [address] [place] [address], [place] [address] Aug, [facility] [address] [id number] [address] [place] [address], [place] [address] Aug, [facility] [address] [id number] [address] [place] [address], [place] [address] Aug, [facility] [address] [id number] [address] [place] [address], [place] [address] Jul, [facility] [address] [id number] [address] [place] [address], [place] [address] Jul, [facility] [address] [id number] [address] [place] [address], [place] [address] 05 Jul, 2013 [facility] [address] [id number] [address] [place] [address], [place] [address] Jun, [facility] [address] [id number] [address] [place] [address], [place] [address] May, [facility] [address] [id number] [address] [place] [address], [place] [address] May, [facility] [address] [id number] [address] [place] [address], [place] [address] May, [facility] [address] [id number] [address] [place] [address], [place] [address] Apr, [facility] [address] [id number] [address] [place] [address], [place] [address] March, [facility] [address] [id number] [address] [place] [address], [place] [address] March, [facility] [address] [id number] [address] [place] [address], [place] [address] Feb, [facility] [address] [id number] [address] [place] [address], [place] [address] Feb, [facility] [address] [id number] [address] [place] [address], [place] [address] Feb, [facility] [address] [id number] [address] [place] [address], [place] [address] Feb, [facility] [address] [id number] [address] [place] [address], [place] [address] Jan, [facility] [address] [id number] [address] [place] [address], [place] [address] Jan, [facility] [address] [id number] [address] [place] [address], [place] [address] Jan, [facility] [address] [id number] [address] [place] [address], [place] [address] Jan, [facility] [address] [id number] [address] [place] [address], [place] [address] Dec, [facility] [address] [id number] [address] [place] [address], [place] [address] Dec, [facility] [address] [id number] [address] [place] [address], [place] [address] Dec, [facility] [address] [id number] [address] [place] [address], [place] [address] Nov, [facility] [address] [id number] [address] [place] [address], [place] [address] Nov, [facility] [address] [id number] [address] [place] [address], [place] [address] Nov, [facility] [address] [id number] [address] [place] [id number] Nov, [facility] [address] [id number] [address] [place] [address], [place] [address] Oct, [facility] [address] [address] [id number] [address] [place] [address], [place] [address] Oct, [facility] [address] [id number] [address] [place] [address], [place] [address] Oct, [facility] [address] [id number] [address] [place] [address], [place] [address] Oct, [facility] [address] [id number] [address] [place] [address], [place] [address] Sep, [facility] [address] [id number] [address] [place] [address], [place] [address] Sep, [facility] [address] [id number] [address] [place] [address], [place] [address] Sep, [facility] [address] [id number] [address] [place] [address], [place] [address] Sep, [facility] [address] [id number] [address] [place] [address], [place] [address] Aug, [facility] [address] [id number] [address] [place] [address], [place] [address] Aug, [facility] [address] [id number] [address] [place] [address], [place] [address] Aug, [facility] [address] [id number] [address] [place] [address], [place] [address] Jul, [facility] [address] [id number] [address] [place] [address], [place] [address] Jun, [facility] [address] [id number] [address] [place] [address], [place] [address] May, [facility] [address] [id number] [address] [place] [address], [place] [address] May, [facility] [address] [id number] [address] [place] [address], [place] [address] May, [facility] [address] [id number] [address] [place] [address], [place] [address] March, [facility] [address] [id number] [address] [place] [address], [place] [address] March, [facility] [address] [id number] [address] [place] [address], [place] [address] Feb, [facility] [address] [id number] [address] [place] [address], [place] [address] Feb, [facility] [address] [id number] [address] [place] [address], [place] [address] 24 Feb, 2012 [facility] [address] [id number] [address] [place] [address], [place] [address] Feb, [facility] [address] [id number] [address] [place] [address], [place] [address] Feb, [facility] [address] [id number] [address] [place] [address], [place] [address] Feb, [facility] [address] [id number] [address] [place] [address], [place] [address] Feb, [facility] [address] [id number] [address] [place] [address], [place] [address] Feb, [facility] [address] [id number] [address] [place] [address], [place] [address] Dec, [facility] [address] [id number] [address] [place] [address], [place] [address] Nov, [facility] [address] [id number] [address] [place] [address], [place] [address] Nov, [facility] [address] [id number] [address] [place] [address], [place] [address] Nov, [facility] [address] [id number] [address] [place] [address], [place] [address] 13 Nov, 2011 [facility] [address] [id number] [address] [place] [address], [place] [address] 13 Nov, 2011 [facility] [address] [id number] [address] [place] [address], [place] [address] 12 Nov, 2011 [facility] [address] [id number] [address] [place] [address], [place] [address] Oct, [facility] [address] [id number] [address] [place] [address], [place] [address] Sep, [facility] [address] [id number] [address] [place] [address], [place] [address] Sep, [facility] [address] [id number] [address] [place] [address], [place] [address] Sep, [facility] [address] [id number] [address] [place] [address], [place] [address] Sep, [facility] [address] [id number] [address] [place] [address] Aug, [facility] [address] [id number] [address] [place] [address], [place] [address] 24 Aug, 2011 [facility] [address] [id number] [address] [place] [id number] Aug, [facility] [address] [id number] [address] [place] [address] Aug, [facility] [address] [id number] [address] [place] [address] 20 Aug, 2011 [facility] [address] [id number] [address] [place] [address], [place] [address] 20 Aug, 2011 [facility] [address] [id number] [address] [place] [address] 17 Aug, 2011 [facility] [address] [id number] [address] [place] [address] 10 Aug, 2011 [facility] [address] [id number] [address] [place] [address] 10 Aug, 2011 [facility] [address] [facility] [id number] [address] [place] [id number] Jul, [facility] [address] [facility] [id number] [address] [place] [address] May, IMMUNIZATIONS No Known Immunizations SOCIAL HISTORY Never Assessed REASON FOR VISIT EMR-[facility] [place], [place] PLAN OF CARE VITAL SIGNS MEDICATIONS Unknown [...]
--- OUTSIDE RECORDS SUMMARY | 2020-02-07 09:19 | XMS REPORT ---
Author Author Britton Streeter Doctor Organization 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 Active 960643122 Problem Hypercholesterolemia E78.0 Active 99080983 Problem Secondary hypertension I15.9 Active 93480145 Problem Acquired hypothyroidism E03.9 Active 985007735 Problem Anxiety F41.9 Active 74728139 Problem Tingling in extremities R20.2 Active 19232375 Problem Personality disorder in adult F60.9 Active 44710355 Problem Generalized anxiety disorder F41.1 A ctive 60573590 Problem Gastroesophageal reflux disease without esophagitis K21.9 Active 917415641 Problem Environmental allergies Z91.09 Active 136588398 Problem Hypothyroidism (acquired) E03.9 Acti ve 102402471 Problem Acute eczema L30.9 Active 0734940 02 Problem Depression, unspecified depression type F32.9 Active 16366402 Problem Major depressive disorder, recurrent, moderate F33 .1 Active 16376526 Problem Drug-induced erectile dysfunction N52.2 Active 159299635 Problem Acute left-sided low back pain with left-sided sciatica M54.42 Active 772498104 Problem Primary insomnia F51.01 Active 397 2004 ALLERGIES No Information ENCOUNTERS Encounter Location Date Diagnosis [facility] [address] [facility] [id number] [address] [place] [address] May, [facility] [address] [facility] [id number] [address] [place] [address] Feb, Generalized anxiety disorder F41.1 ; Major depressive disorder, recurrent, moderate F33.1 and Personality disorder in adult F60.9 [facility] [address] [id number] [address] [place] [address] Jan, [facility] [address] [id number] [address] [place] [address] Dec, [facility] [address] [id number] [address] [place] [address] Dec, Acquired hypothyroidism E03. 9 and Other mcc (current) drug therapy Z79.899 [facility] [address] [id number] [address] [place] [address] Dec, Acquired hypothyroidism E03. 9 [facility] [address] [id number] [address] [place] [address] Nov, Generalized anxiety disorder F41.1 ; Major depressive disorder, recurrent, moderate F33.1 ; Personality disorder in adult F60.9 and Other superintendent terminal (current) drug therapy Z79.899 [facility] [address] [id number] [address] [place] [address] Nov, [facility] [address] [id number] [address] [place] [address] Oct, [facility] [address] [id number] [address] [place] [address] Sep, Generalized anxiety disorder F41.1 ; Major depressive disorder, recurrent, moderate F33.1 and Personality disorder in adult F60.9 [facility] [address] [id number] [address] [place] [address] Aug, [facility] [address] [id number] [address] [place] [address] Aug, [facility] [address] [facility] [id number] [address] [place] [address] Jul, Generalized anxiety disorder F41.1 [facility] [address] [id number] [address] [place] [address] Jul, [facility] [address] [facility] [id number] [address] [place] [address] Jul, Acquired hypothyroidism E03. 9 [facility] [address] [facility] [id number] [address] [place] [address] Jul, Generalized anxiety disorder F41.1 [facility] [address] [facility] [id number] [address] [place] [address] Jul, Generalized anxiety disorder F41.1 ; Major depressive disorder, recurrent, moderate F33.1 and Personality disorder in adult F60.9 [facility] [address] [facility] [id number] [address] [place] [address] Jun, Generalized anxiety disorder F41.1 ; Major depressive disorder, recurrent, moderate F33.1 ; Primary insomnia F51.01 and Personality disorder in adult F60.9 [place] [address] [facility] [id number] [address] [place] [address] May, Acquired hypothyroidism E03. 9 [facility] [address] [facility] [id number] [address] [place] [address] May, Hypothyroidism (acquired) E0 3.9 and Gastroesophageal reflux disease without esophagitis K21.9 [facility] [address] [facility] [id number] [address] [place] [address] Apr, [facility] [address] [facility] [id number] [address] [place] [address] Apr, Skin infection L08.9 [facility] [address] [facility] [id number] [address] [place] [address] 05 Apr, 2018 Generalized anxiety disorder F41.1 ; Major depressive disorder, recurrent, moderate F33.1 ; Primary insomnia F51.01 and Personality disorder in adult F60.9 [facility] [address] [facility] [id number] [address] [place] [address] March, Generalized anxiety disorder F41.1 ; Major depressive disorder, recurrent, moderate F33.1 and Personality disorder in adult F60.9 [facility] [address] [facility] [id number] [address] [place] [address] Feb, [facility] [address] [facility] [id number] [address] [place] [address] Dec, Generalized anxiety disorder F41.1 ; Major depressive disorder, recurrent, moderate F33.1 and Personality disorder in adult F60.9 [facility] [address] [facility] [id number] [address] [place] [address] Dec, Acute left-sided low back pa in with left-sided sciatica M54.42 [facility] [address] [facility] [id number] [address] [place] [address] Nov, [facility] [address] [facility] [id number] [address] [place] [address] Oct, Generalized anxiety disorder F41.1 ; Major depressive disorder, recurrent, moderate F33.1 and Personality disorder in adult F60.9 [facility] [address] [facility] [id number] [address] [place] [address] Sep, Acquired hypothyroidism E03. 9 ; Hypercholesterolemia E78.0 ; Generalized anxiety disorder F41.1 and Drug-induced erectile dysfunction N52.2 [facility] [address] [facility] [id number] [address] [place] [address] Sep, [facility] [address] [facility] [id number] [address] [place] [address] Sep, Acquired hypothyroidism E03. 9 ; Hypercholesterolemia E78.0 ; Generalized anxiety disorder F41.1 and Drug-induced erectile dysfunction N52.2 [facility] [address] [facility] [id number] [address] [place] [address] Sep, Generalized anxiety disorder F41.1 ; Major depressive disorder, recurrent, moderate F33.1 and Personality disorder in adult F60.9 [facility] [address] [id number] [address] [place] [id number] Aug, Dental examination Z01.20 [facility] [address] [id number] [address] [place] [id number] Aug, Dental caries K02.9 [facility] [address] [id number] [address] [place] [address] 13 Aug, 2017 [facility] [address] [id number] [address] [place] [id number] 10 Aug, 2017 Dental examination Z01.20 [facility] [address] [facility] [id number] [address] [place] [address] 20 Jul, 2017 Major depressive disorder, r ecurrent, moderate F33.1 [facility] [address] [facility] [id number] [address] [place] [address] 19 Jul, 2017 Generalized anxiety disorder F41.1 ; Major depressive disorder, recurrent, moderate F33.1 and Personality disorder in adult F60.9 [facility] [address] [facility] [id number] [address] [place] [address] 08 Jul, 2017 Generalized anxiety disorder F41.1 ; Major depressive disorder, recurrent, moderate F33.1 and Personality disorder in adult F60.9 [facility] [address] [facility] [id number] [address] [place] [address] Jun, Generalized anxiety disorder F41.1 ; Major depressive disorder, recurrent, moderate F33.1 and Personality disorder in adult F60.9 [facility] [address] [facility] [id number] [address] [place] [address] Apr, Generalized anxiety disorder F41.1 ; Major depressive disorder, recurrent, moderate F33.1 and Personality disorder in adult F60.9 [facility] [address] [facility] [id number] [address] [place] [address] March, Acquired hypothyroidism E03. 9 [facility] [address] [facility] [id number] [address] [place] [address] March, Acquired hypothyroidism E03. 9 and Left lower quadrant pain R10.32 [facility] [address] [facility] [id number] [address] [place] [address] March, Hypercholesterolemia E78.0 ; Acquired hypothyroidism E03.9 ; Insomnia, unspecified type G47.00 ; Secondary hypertension I15.9 ; Gastroesophageal reflux disease, esophagitis presence not specified K21.9 ; Tingling in extremities R20.2 ; Environmental allergies Z91.09 ; Depression, unspecified depression type F32.9 and Left lower quadrant pain R10.32 [place] [address] [place] [id number] Feb, High risk sexual behavior Z7 2.51 [place] [address] Feb, Major depressive disorder, r ecurrent, moderate F33.1 and Generalized anxiety disorder F41.1 [place] [address] 22 Dec, 2016 Major depressive disorder, r ecurrent, moderate F33.1 [place] [address] [place] [id number] 17 Dec, 2016 [place] [address] [address] 16 Dec, 2016 Acquired hypothyroidism E03. 9 and High risk sexual behavior Z72.51 [place] [address] [place] [id number] 07 Dec, 2016 Major depressive disorder, r ecurrent, moderate F33.1 and Generalized anxiety disorder F41.1 [place] [address] [place] [id number] 07 Dec, 2016 Acquired hypothyroidism E03. 9 ; Secondary hypertension I15.9 and Acute eczema L30.9 [place] [address] [place] [id number] Nov, Acquired hypothyroidism E03. 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 [id number] [address] [place] [address] Aug, [place] [address] [place] [id number] [place] [address] Aug, Insomnia, unspecified type G 47.00 ; Acquired hypothyroidism E03.9 ; Hypercholesterolemia E78.0 and Gastroesophageal reflux disease, esophagitis presence not specified K21.9 [place] [address] [address] Jul, [place] [address] [place] [id number] [place] [address] Jul, Major depressive disorder, r ecurrent, in partial remission F33.41 and Generalized anxiety disorder F41.1 [place] [address] [place] [id number] [place] [address] Jun, [address] [address] Jun, Cervical pain (neck) M54.2 a nd Cervical neuropathic pain M54.12 [place] [address] [place] [id number] [place] [address] Apr, Insomnia, unspecified type G 47.00 ; Acquired hypothyroidism E03.9 ; Hypercholesterolemia E78.0 ; 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 ; Depression, unspecified depression type F32.9 ; 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 ; Gastroesophageal reflux disease, esophagitis presence not specified K21.9 ; Anxiety F41.9 ; Secondary hypertension I15.9 and Post- nasal drainage R09.82 [place] [address] [place] [id number] [address] [place] [address] Apr, [place] [address] [address] March, [facility] [address] [address] March, Unspecified hypothyroidism 2 44.9 and HTN (hypertension) 401.9 [place] [address] [address] [place] [id number] [address] [place] [address] March, [facility] [address] [address] Dec, [facility] [address] [address] Nov, [place] [address] [address] Sep, Generalized anxiety disorder F41.1 and Major depressive disorder, recurrent, in partial remission F33.41 [place] [address] [address] Jun, Unspecified hypothyroidism 2 44.9 ; Sciatica 724.3 ; Major depressive disorder, recurrent episode, in partial or unspecified remission 296.35 ; Combined hyperlipidemia 272.2 ; HTN (hypertension) 401.9 ; Hidrosis 780.8 ; Cat allergies 477.8 and Environmental allergies V15.09 [place] [address] [place] [id number] [address] [place] [address] Jun, Major depressive disorder, r ecurrent episode, in partial or unspecified remission 296.35 ; Insomnia, unspecified 780.52 and Generalized anxiety disorder 300.02 [facility] [address] [place] [id number] [address] [place] [address] May, [place] [address] [address] Apr, [place] [address] [address] Apr, Closed mallet fracture of di stal phalanx of ring finger 816.02 [place] [address] [place] [address] March, Depression, major, recurrent , moderate 296.32 ; Generalized anxiety disorder 300.02 and Borderline personality disorder 301.83 [facility] [address] [id number] [address] [place] [address] Feb, [facility] [address] [facility] [id number] [address] [place] [address] Feb, [facility] [address] [id number] [address] [place] [address] Jan, [facility] [address] [id number] [address] [place] [address] Jan, [facility] [address] [id number] [address] [place] [address] Jan, [facility] [address] [id number] [address] [place] [address] Jan, [facility] [address] [id number] [address] [place] [address] Jan, [facility] [address] [id number] [address] [place] [address] Jan, [facility] [address] [id number] [address] [place] [address] Dec, [facility] [address] [id number] [address] [place] [address] Dec, [facility] [address] [id number] [address] [place] [address] Dec, [facility] [address] [id number] [address] [place] [address] Dec, [facility] [address] [id number] [address] [place] [address] Nov, [facility] [address] [facility] [id number] [address] [place] [address] Nov, [facility] [address] [id number] [address] [place] [address], [place] [address] Nov, [facility] [address] [id number] [address] [place] [address], [place] [address] Nov, [facility] [address] [id number] [address] [place] [address], [place] [address] Nov, [facility] [address] [id number] [address] [place] [address], [place] [address] Nov, [facility] [address] [id number] [address] [place] [address], [place] [address] Oct, [facility] [address] [id number] [address] [place] [address], [place] [address] Oct, [facility] [address] [id number] [address] [place] [address], [place] [address] Oct, [facility] [address] [id number] [address] [place] [address], [place] [address] Oct, [facility] [address] [id number] [address] [place] [address], [place] [address] Oct, [facility] [address] [id number] [address] [place] [address], [place] [address] Oct, [facility] [address] [id number] [address] [place] [address], [place] [address] Sep, [facility] [address] [id number] [address] [place] [address], [place] [address] Sep, [facility] [address] [id number] [address] [place] [address], [place] [address] Sep, [facility] [address] [id number] [address] [place] [address], [place] [address] Sep, [facility] [address] [id number] [address] [place] [address], [place] [address] Aug, [facility] [address] [id number] [address] [place] [address], [place] [address] Aug, [facility] [address] [id number] [facility] [address] Apr, [facility] [address] [id number] [address] [place] [address], [place] [address] Apr, [facility] [address] [id number] [address] [place] [address], [place] [address] 17 Apr, 2014 [facility] [address] [id number] [address] [place] [address], [place] [address] 17 Apr, 2014 [facility] [address] [id number] [address] [place] [address], [place] [address] Apr, [facility] [address] [id number] [address] [place] [address], [place] [address] Apr, [facility] [address] [id number] [address] [place] [address], [place] [address] March, [facility] [address] [id number] [address] [place] [address], [place] [address] March, [facility] [address] [id number] [address] [place] [address], [place] [address] Dec, [facility] [address] [id number] [address] [place] [address], [place] [address] Dec, [facility] [address] [id number] [address] [place] [address], [place] [address] Sep, [facility] [address] [id number] [address] [place] [address], [place] [address] Sep, [facility] [address] [id number] [address] [place] [address], [place] [address] Aug, [facility] [address] [id number] [address] [place] [address], [place] [address] Aug, [facility] [address] [id number] [address] [place] [address], [place] [address] Aug, [facility] [address] [id number] [address] [place] [address], [place] [address] Aug, [facility] [address] [id number] [address] [place] [address], [place] [address] Aug, [facility] [address] [id number] [address] [place] [address], [place] [address] Aug, [facility] [address] [id number] [address] [place] [address], [place] [address] Aug, [facility] [address] [id number] [address] [place] [address], [place] [address] Aug, [facility] [address] [id number] [address] [place] [address], [place] [address] Aug, [facility] [address] [id number] [address] [place] [address], [place] [address] Aug, [facility] [address] [id number] [address] [place] [address], [place] [address] Jul, [facility] [address] [id number] [address] [place] [address], [place] [address] Jul, [facility] [address] [id number] [address] [place] [address], [place] [address] 05 Jul, 2013 [facility] [address] [id number] [address] [place] [address], [place] [address] Jun, [facility] [address] [id number] [address] [place] [address], [place] [address] May, [facility] [address] [id number] [address] [place] [address], [place] [address] May, [facility] [address] [id number] [address] [place] [address], [place] [address] May, [facility] [address] [id number] [address] [place] [address], [place] [address] Apr, [facility] [address] [id number] [address] [place] [address], [place] [address] March, [facility] [address] [id number] [address] [place] [address], [place] [address] March, [facility] [address] [id number] [address] [place] [address], [place] [address] Feb, [facility] [address] [id number] [address] [place] [address], [place] [address] Feb, [facility] [address] [id number] [address] [place] [address], [place] [address] Feb, [facility] [address] [id number] [address] [place] [address], [place] [address] Feb, [facility] [address] [id number] [address] [place] [address], [place] [address] Jan, [facility] [address] [id number] [address] [place] [address], [place] [address] Jan, [facility] [address] [id number] [address] [place] [address], [place] [address] Jan, [facility] [address] [id number] [address] [place] [address], [place] [address] Jan, [facility] [address] [id number] [address] [place] [address], [place] [address] Dec, [facility] [address] [id number] [address] [place] [address], [place] [address] Dec, [facility] [address] [id number] [address] [place] [address], [place] [address] Dec, [facility] [address] [id number] [address] [place] [address], [place] [address] Nov, [facility] [address] [id number] [address] [place] [address], [place] [address] Nov, [facility] [address] [id number] [address] [place] [address], [place] [address] Nov, [facility] [address] [id number] [address] [place] [address] Nov, [facility] [address] [id number] [address] [place] [address], [place] [address] Oct, [facility] [address] [id number] [address] [place] [address], [place] [address] Oct, [facility] [address] [id number] [address] [place] [address], [place] [address] Oct, [facility] [address] [id number] [address] [place] [address], [place] [address] Oct, [facility] [address] [id number] [address] [place] [address], [place] [address] Sep, [facility] [address] [id number] [address] [place] [address], [place] [address] Sep, [facility] [address] [id number] [address] [place] [address], [place] [address] Sep, [facility] [address] [id number] [address] [place] [address], [place] [address] Sep, [facility] [address] [id number] [address] [place] [address], [place] [address] Aug, [facility] [address] [id number] [address] [place] [address], [place] [address] Aug, [facility] [address] [id number] [address] [place] [address], [place] [address] Aug, [facility] [address] [id number] [address] [place] [address], [place] [address] Jul, [facility] [address] [id number] [address] [place] [address], [place] [address] Jun, [facility] [address] [id number] [address] [place] [address], [place] [address] May, [facility] [address] [id number] [address] [place] [address], [place] [address] May, [facility] [address] [id number] [address] [place] [address], [place] [address] May, [facility] [address] [id number] [address] [place] [address], [place] [address] March, [facility] [address] [id number] [address] [place] [address], [place] [address] March, [facility] [address] [id number] [address] [place] [address], [place] [address] Feb, [facility] [address] [id number] [address] [place] [address], [place] [address] Feb, [facility] [address] [id number] [address] [place] [address], [place] [address] 24 Feb, 2012 [facility] [address] [id number] [address] [place] [address], [place] [address] Feb, [facility] [address] [id number] [address] [place] [address], [place] [address] Feb, [facility] [address] [id number] [address] [place] [address], [place] [address] Feb, [facility] [address] [id number] [address] [place] [address], [place] [address] Feb, [facility] [address] [id number] [address] [place] [address], [place] [address] Feb, [facility] [address] [id number] [address] [place] [address], [place] [address] Dec, [facility] [address] [id number] [address] [place] [address], [place] [address] Nov, [facility] [address] [id number] [address] [place] [address], [place] [address] Nov, [facility] [address] [id number] [address] [place] [address], [place] [address] Nov, [facility] [address] [id number] [address] [place] [address], [place] [address] 13 Nov, 2011 [facility] [address] [id number] [address] [place] [address], [place] [address] 13 Nov, 2011 [facility] [address] [id number] [address] [place] [address], [place] [address] 12 Nov, 2011 [facility] [address] [id number] [address] [place] [address], [place] [address] Oct, [facility] [address] [id number] [address] [place] [address], [place] [address] Sep, [facility] [address] [id number] [address] [place] [address], [place] [address] Sep, [facility] [address] [id number] [address] [place] [address], [place] [address] Sep, [facility] [address] [id number] [address] [place] [address], [place] [address] Sep, [facility] [address] [id number] [address] [place] [address] Aug, [facility] [address] [id number] [address] [place] [address], [place] [address] 24 Aug, 2011 [facility] [address] [id number] [address] [place] [address] Aug, [facility] [address] [id number] [address] [place] [address] Aug, [facility] [address] [id number] [address] [place] [address] 20 Aug, 2011 [facility] [address] [id number] [address] [place] [address], [place] [address] 20 Aug, 2011 [facility] [address] [id number] [address] [place] [address] 17 Aug, 2011 [facility] [address] [id number] [address] [place] [address] 10 Aug, 2011 [facility] [address] [id number] [address] [place] [address] 10 Aug, 2011 [facility] [address] [facility] [id number] [address] [place] [address] Jul, [facility] [address] [facility] [id number] [address] [place] [address] May, IMMUNIZATIONS No Known Immunizations SOCIAL HISTORY Never Assessed REASON FOR VISIT EMR-[facility] PLAN OF CARE VITAL SIGNS MEDICATIONS Unknown [...]
--- OUTSIDE RECORDS SUMMARY | 2020-02-07 09:19 | XMS REPORT ---
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 17613836 Problem 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 Active 619485049 Problem Hypercholesterolemia E78.0 Active 24333175 Problem Secondary hypertension I15.9 Active 91151244 Problem Acquired hypothyroidism E03.9 Active 456345150 Problem Anxiety F41.9 Active 12612445 Problem Tingling in extremities R20.2 Active 34160869 Problem Personality disorder in adult F60.9 Active 50296129 Problem Generalized anxiety disorder F41.1 A ctive 54513127 Problem Gastroesophageal reflux disease without esophagitis K21.9 Active 820767325 Problem Environmental allergies Z91.09 Active 495006061 Problem Hypothyroidism (acquired) E03.9 Acti ve 941258775 Problem Acute eczema L30.9 Active 5783533 02 Problem Depression, unspecified depression type F32.9 Active 37001155 Problem Major depressive disorder, recurrent, moderate F33 .1 Active 10161764 Problem Drug-induced erectile dysfunction N52.2 Active 015351963 Problem Acute left-sided low back pain with left-sided sciatica M54.42 Active 716424423 Problem Primary insomnia F51.01 Active 397 2004 ALLERGIES No Information ENCOUNTERS Encounter Location Date Diagnosis [facility] [address] [facility] [id number] [address] [place] [address] May, [facility] [address] [facility] [id number] [address] [place] [address] Apr, [facility] [address] [id number] [address] [place] [address] March, [facility] [address] [id number] [address] [place] [address] Feb, Generalized anxiety disorder F41.1 ; Major depressive disorder, recurrent, moderate F33.1 and Personality disorder in adult F60.9 [facility] [address] [id number] [address] [place] [address] Jan, [facility] [address] [id number] [address] [place] [address] Dec, [facility] [address] [id number] [address] [place] [address] Dec, Acquired hypothyroidism E03. 9 and Other fpc (current) drug therapy Z79.899 [facility] [address] [id number] [address] [place] [address] Dec, Acquired hypothyroidism E03. 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 Z79.899 [facility] [address] [id number] [address] [place] [address] Nov, [facility] [address] [id number] [address] [place] [address] Oct, [facility] [address] [id number] [address] [place] [address] Sep, Generalized anxiety disorder F41.1 ; Major depressive disorder, recurrent, moderate F33.1 and Personality disorder in adult F60.9 [facility] [address] [id number] [address] [place] [address] Aug, [facility] [address] [id number] [address] [place] [address] Aug, [facility] [address] [facility] [id number] [address] [place] [address] Jul, Generalized anxiety disorder F41.1 [facility] [address] [facility] [id number] [address] [place] [address] 24 Jul, 2018 [facility] [address] [facility] [id number] [address] [place] [address] Jul, Acquired hypothyroidism E03. 9 [facility] [address] [facility] [id number] [address] [place] [address] Jul, Generalized anxiety disorder F41.1 [place] [address] [facility] [id number] [address] [place] [address] 04 Jul, 2018 Generalized anxiety disorder F41.1 ; Major depressive disorder, recurrent, moderate F33.1 and Personality disorder in adult F60.9 [place] [address] [place] [id number] [address] [place] [address] Jun, Generalized anxiety disorder F41.1 ; Major depressive disorder, recurrent, moderate F33.1 ; Primary insomnia F51.01 and Personality disorder in adult F60.9 [place] [address] [place] [id number] [address] [place] [address] May, Acquired hypothyroidism E03. 9 [facility] [address] [facility] [id number] [address] [place] [address] May, Hypothyroidism (acquired) E0 3.9 and Gastroesophageal reflux disease without esophagitis K21.9 [facility] [address] [facility] [id number] [address] [place] [address] Apr, [facility] [address] [facility] [id number] [address] [place] [address] Apr, Skin infection L08.9 [facility] [address] [facility] [id number] [address] [place] [address] 05 Apr, 2018 Generalized anxiety disorder F41.1 ; Major depressive disorder, recurrent, moderate F33.1 ; Primary insomnia F51.01 and Personality disorder in adult F60.9 [place] [address] [facility] [id number] [address] [place] [address] March, Generalized anxiety disorder F41.1 ; Major depressive disorder, recurrent, moderate F33.1 and Personality disorder in adult F60.9 [facility] [address] [facility] [id number] [address] [place] [address] Feb, [facility] [address] [facility] [id number] [address] [place] [address] 06 Dec, 2017 Generalized anxiety disorder F41.1 ; Major depressive disorder, recurrent, moderate F33.1 and Personality disorder in adult F60.9 [facility] [address] [facility] [id number] [address] [place] [address] 06 Dec, 2017 Acute left-sided low back pa in with left-sided sciatica M54.42 [facility] [address] [facility] [id number] [address] [place] [address] Nov, [facility] [address] [facility] [id number] [address] [place] [address] 05 Oct, 2017 Generalized anxiety disorder F41.1 ; Major depressive disorder, recurrent, moderate F33.1 and Personality disorder in adult F60.9 [facility] [address] [facility] [id number] [address] [place] [address] 24 Sep, 2017 Acquired hypothyroidism E03. 9 ; Hypercholesterolemia E78.0 ; Generalized anxiety disorder F41.1 and Drug-induced erectile dysfunction N52.2 [facility] [address] [facility] [id number] [address] [place] [address] Sep, [facility] [address] [facility] [id number] [address] [place] [address] Sep, Acquired hypothyroidism E03. 9 ; Hypercholesterolemia E78.0 ; Generalized anxiety disorder F41.1 and Drug-induced erectile dysfunction N52.2 [facility] [address] [facility] [id number] [address] [place] [address] 07 Sep, 2017 Generalized anxiety disorder F41.1 ; Major depressive disorder, recurrent, moderate F33.1 and Personality disorder in adult F60.9 [facility] [address] [id number] [address] [place] [id number] Aug, Dental examination Z01.20 [facility] [address] [id number] [address] [place] [address] [id number] Aug, Dental caries K02.9 [facility] [address] [id number] [address] [place] [address] Aug, [facility] [address] [id number] [address] [place] [address] [id number] Aug, Dental examination Z01.20 [facility] [address] [id number] [address] [place] [address] Jul, Major depressive disorder, r ecurrent, moderate F33.1 [facility] [address] [id number] [address] [place] [address] Jul, Generalized anxiety disorder F41.1 ; Major depressive disorder, recurrent, moderate F33.1 and Personality disorder in adult F60.9 [facility] [address] [id number] [address] [place] [address] Jul, Generalized anxiety disorder F41.1 ; Major depressive disorder, recurrent, moderate F33.1 and Personality disorder in adult F60.9 [facility] [address] [id number] [address] [place] [address] Jun, Generalized anxiety disorder F41.1 ; Major depressive disorder, recurrent, moderate F33.1 and Personality disorder in adult F60.9 [facility] [address] [id number] [address] [place] [address] Apr, Generalized anxiety disorder F41.1 ; Major depressive disorder, recurrent, moderate F33.1 and Personality disorder in adult F60.9 [facility] [address] [id number] [address] [place] [address] March, Acquired hypothyroidism E03. 9 [facility] [address] [id number] [address] [place] [address] March, Acquired hypothyroidism E03. 9 and Left lower quadrant pain R10.32 [place] [address] [place] [id number] March, Hypercholesterolemia E78.0 ; Acquired hypothyroidism E03.9 ; Insomnia, unspecified type G47.00 ; Secondary hypertension I15.9 ; Gastroesophageal reflux disease, esophagitis presence not specified K21.9 ; Tingling in extremities R20.2 ; Environmental allergies Z91.09 ; Depression, unspecified depression type F32.9 and Left lower quadrant pain R10.32 [place] [address] [address] Feb, High risk sexual behavior Z7 2.51 [place] [address] [address] Feb, Major depressive disorder, r ecurrent, moderate F33.1 and Generalized anxiety disorder F41.1 [place] [address] [address] Dec, Major depressive disorder, r ecurrent, moderate F33.1 [place] [address] [address] Dec, [place] [address] [address] 16 Dec, 2016 Acquired hypothyroidism E03. 9 and High risk sexual behavior Z72.51 [place] [address] [address] Dec, Major depressive disorder, r ecurrent, moderate F33.1 and Generalized anxiety disorder F41.1 [place] [address] [place] [id number] 07 Dec, 2016 Acquired hypothyroidism E03. 9 ; Secondary hypertension I15.9 and Acute eczema L30.9 [place] [address] [address] Nov, Acquired hypothyroidism E03. 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 ; Hypercholesterolemia E78.0 ; Gastroesophageal reflux disease, esophagitis presence not specified K21.9 ; Anxiety F41.9 and Secondary hypertension I15.9 [place] [address] [address] Oct, Major depressive disorder, r ecurrent, moderate F33.1 and Generalized anxiety disorder F41.1 [place] [address] [address] Aug, [place] [address] [place] [address] Aug, Insomnia, unspecified type G 47.00 ; Acquired hypothyroidism E03.9 ; Hypercholesterolemia E78.0 and Gastroesophageal reflux disease, esophagitis presence not specified K21.9 [place] [address] [address] Jul, [place] [address] [address] Jul, Major depressive disorder, r ecurrent, in partial remission F33.41 and Generalized anxiety disorder F41.1 [place] [address] [address] Jun, [place] [address] [address] Jun, Cervical pain (neck) M54.2 a nd Cervical neuropathic pain M54.12 [place] [address] [place] [id number] [place] [address] Apr, Insomnia, unspecified type G 47.00 ; Acquired hypothyroidism E03.9 ; Hypercholesterolemia E78.0 ; 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 ; Depression, unspecified depression type F32.9 ; 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 ; Gastroesophageal reflux disease, esophagitis presence not specified K21.9 ; Anxiety F41.9 ; Secondary hypertension I15.9 and Post- nasal drainage R09.82 [facility] [address] [place] [id number] [address] [place] [address] Apr, [facility] [address] [place] [id number] [place] [address] March, [facility] [address] [place] [id number] [place] [address] March, Unspecified hypothyroidism 2 44.9 and HTN (hypertension) 401.9 [facility] [address] [place] [id number] [address] [place] [address] March, [facility] [address] [address] Dec, [facility] [address] [address] Nov, [facility] [address] [address] Sep, Generalized anxiety disorder F41.1 and Major depressive disorder, recurrent, in partial remission F33.41 [place] [address] [address] Jun, Unspecified hypothyroidism 2 44.9 ; Sciatica 724.3 ; Major depressive disorder, recurrent episode, in partial or unspecified remission 296.35 ; Combined hyperlipidemia 272.2 ; HTN (hypertension) 401.9 ; Hidrosis 780.8 ; Cat allergies 477.8 and Environmental allergies V15.09 [facility] [address] [place] [id number] [address] [place] [address] Jun, Major depressive disorder, r ecurrent episode, in partial or unspecified remission 296.35 ; Insomnia, unspecified 780.52 and Generalized anxiety disorder 300.02 [facility] [address] [place] [id number] [address] [place] [address] May, [facility] [address] [place] [id number] [place] [address] Apr, [facility] [address] [id number] [address] [place] [address] Apr, Closed mallet fracture of di stal phalanx of ring finger 816.02 [facility] [address] [id number] [address] [place] [address] March, Depression, major, recurrent , moderate 296.32 ; Generalized anxiety disorder 300.02 and Borderline personality disorder 301.83 [facility] [address] [id number] [address] [place] [address] Feb, [facility] [address] [id number] [address] [place] [address] Feb, [facility] [address] [facility] [id number] [address] [place] [address] Jan, [facility] [address] [facility] [id number] [address] [place] [address] Jan, [facility] [address] [facility] [id number] [address] [place] [address] Jan, [facility] [address] [id number] [address] [place] [address] Jan, [facility] [address] [facility] [id number] [address] [place] [address] Jan, [facility] [address] [facility] [id number] [address] [place] [address] Jan, [facility] [address] [facility] [id number] [address] [place] [address] Dec, [facility] [address] [id number] [address] [place] [address] Dec, [facility] [address] [facility] [id number] [address] [place] [address] Dec, [facility] [address] [facility] [id number] [address] [place] [address] Dec, [facility] [address] [id number] [address] [place] [address], [place] [address] 15 Nov, 2014 [facility] [address] [id number] [address] [place] [address], [place] [address] Nov, [facility] [address] [id number] [address] [place] [address], [place] [address] Nov, [facility] [address] [id number] [address] [place] [address], [place] [address] Nov, [facility] [address] [id number] [address] [place] [address], [place] [address] Nov, [facility] [address] [id number] [address] [place] [address], [place] [address] Nov, [facility] [address] [id number] [address] [place] [address], [place] [address] Oct, [facility] [address] [id number] [address] [place] [address], [place] [address] Oct, [facility] [address] [id number] [address] [place] [address], [place] [address] Oct, [facility] [address] [id number] [address] [place] [address], [place] [address] Oct, [facility] [address] [id number] [address] [place] [address], [place] [address] Oct, [facility] [address] [id number] [address] [place] [address], [place] [address] Oct, [facility] [address] [id number] [address] [place] [address], [place] [address] Sep, [facility] [address] [id number] [address] [place] [address], [place] [address] Sep, [facility] [address] [id number] [address] [place] [address], [place] [address] Sep, [facility] [address] [id number] [address] [place] [address], [place] [address] Sep, [facility] [address] [id number] [address] [place] [address], [place] [address] Aug, [facility] [address] [id number] [address] [place] [address], [place] [address] Aug, [facility] [address] [id number] [address] [place] [address], [place] [address] Apr, [facility] [address] [id number] [address] [place] [address], [place] [address] Apr, [facility] [address] [id number] [address] [place] [address], [place] [address] Apr, [facility] [address] [id number] [address] [place] [address], [place] [address] 17 Apr, 2014 [facility] [address] [id number] [address] [place] [address], [place] [address] Apr, [facility] [address] [id number] [address] [place] [address], [place] [address] Apr, [facility] [address] [id number] [address] [place] [address], [place] [address] March, [facility] [address] [id number] [address] [place] [address], [place] [address] March, [facility] [address] [id number] [address] [place] [address], [place] [address] Dec, [facility] [address] [id number] [address] [place] [address], [place] [address] Dec, [facility] [address] [id number] [address] [place] [address], [place] [address] Sep, [facility] [address] [id number] [address] [place] [address], [place] [address] Sep, [facility] [address] [id number] [address] [place] [address], [place] [address] Aug, [facility] [address] [id number] [address] [place] [address], [place] [address] Aug, 2012 [facility] [address] [id number] [address] [place] [address], [place] [address] Aug, 2012 [facility] [address] [id number] [address] [place] [address], [place] [address] Aug, 2012 [facility] [address] [id number] [address] [place] [address], [place] [address] Aug, 2012 [facility] [address] [id number] [address] [place] [address], [place] [address] Aug, 2012 [facility] [address] [id number] [address] [place] [address], [place] [address] Aug, 2012 [facility] [address] [id number] [address] [place] [address], [place] [address] Aug, [facility] [address] [id number] [address] [place] [address], [place] [address] Aug, [facility] [address] [id number] [address] [place] [address], [place] [address] Aug, [facility] [address] [id number] [address] [place] [address], [place] [address] 27 Jul, 2013 [facility] [address] [id number] [address] [place] [address], [place] [address] Jul, [facility] [address] [id number] [address] [place] [address], [place] [address] 05 Jul, 2013 [facility] [address] [id number] [address] [place] [address], [place] [address] Jun, [facility] [address] [id number] [address] [place] [address], [place] [address] May, [facility] [address] [id number] [address] [place] [address], [place] [address] May, [facility] [address] [id number] [address] [place] [id number], [place] [id number] May, [facility] [address] [id number] [address] [place] [id number], [place] [id number] Apr, [facility] [address] [id number] [address] [place] [id number], [place] [address] March, [facility] [address] [id number] [address] [place] [address], [place] [address] March, [facility] [address] [id number] [address] [place] [address], [place] [address] Feb, [facility] [address] [id number] [address] [place] [address], [place] [address] Feb, [facility] [address] [id number] [address] [place] [address], [place] [address] Feb, [facility] [address] [id number] [address] [place] [address], [place] [address] Feb, [facility] [address] [id number] [address] [place] [address], [place] [address] Jan, [facility] [address] [id number] [address] [place] [id number], [place] [address] Jan, [facility] [address] [id number] [address] [place] [address], [place] [address] Jan, [facility] [address] [id number] [address] [place] [address], [place] [address] Jan, [facility] [address] [id number] [address] [place] [address], [place] [address] Dec, [facility] [facility] [address] [id number] [address] [place] [id number], [place] [address] Dec, [facility] [address] [id number] [address] [place] [address], [place] [address] Dec, [facility] [address] [id number] [address] [place] [address], [place] [address] Nov, [facility] [address] [id number] [address] [place] [address] Nov, [facility] [address] [id number] [address] [place] [address], [place] [address] Nov, [facility] [address] [id number] [address] [place] [address], [place] [address] Nov, [facility] [address] [id number] [address] [place] [address], [place] [address] Oct, [facility] [address] [id number] [address] [place] [address], [place] [address] Oct, [facility] [address] [id number] [address] [place] [address], [place] [address] Oct, [facility] [address] [id number] [address] [place] [address], [place] [address] Oct, [facility] [address] [id number] [address] [place] [address], [place] [address] Sep, [facility] [address] [id number] [address] [place] [address], [place] [address] Sep, [facility] [address] [id number] [address] [place] [address], [place] [address] Sep, [facility] [address] [id number] [address] [place] [address], [place] [address] Sep, [facility] [address] [id number] [address] [place] [address], [place] [address] Aug, [facility] [address] [id number] [address] [place] [address] Aug, [facility] [address] [id number] [address] [place] [address], [place] [address] Aug, [facility] [address] [id number] [address] [place] [address], [place] [address] Jul, [facility] [address] [id number] [address] [place] [address], [place] [address] Jun, [facility] [address] [id number] [address] [place] [address], [place] [address] May, [facility] [address] [id number] [address] [place] [address], [place] [address] May, [facility] [address] [id number] [address] [place] [address], [place] [address] May, [facility] [address] [id number] [address] [place] [address], [place] [address] March, [facility] [address] [id number] [address] [place] [address], [place] [address] March, [facility] [address] [id number] [address] [place] [address], [place] [address] Feb, [facility] [address] [id number] [address] [place] [address], [place] [address] Feb, [facility] [address] [id number] [address] [place] [address], [place] [address] Feb, [facility] [address] [id number] [address] [place] [address], [place] [address] Feb, [facility] [address] [id number] [address] [place] [address], [place] [address] Feb, [facility] [address] [id number] [address] [place] [address], [place] [address] Feb, [facility] [address] [id number] [address] [place] [address], [place] [address] Feb, [facility] [address] [id number] [address] [place] [address], [place] [address] Feb, [facility] [address] [id number] [address] [place] [address], [place] [address] Dec, [facility] [address] [id number] [address] [place] [address], [place] [address] Nov, [facility] [address] [id number] [address] [place] [address], [place] [address] Nov, 2011 [facility] [address] [id number] [address] [place] [address], [place] [address] Nov, [facility] [address] [id number] [address] [place] [address], [place] [address] Nov, [facility] [address] [id number] [address] [place] [address], [place] [address] Nov, [facility] [address] [id number] [address] [place] [address], [place] [address] Nov, [facility] [address] [id number] [address] [place] [address], [place] [address] Oct, [facility] [address] [id number] [address] [place] [address], [place] [address] Sep, [facility] [address] [id number] [address] [place] [address], [place] [address] Sep, [facility] [address] [id number] [address] [place] [address] Sep, [facility] [address] [id number] [address] [place] [address], [place] [address] Sep, [facility] [address] [id number] [address] [place] [address], [place] [address] Aug, [facility] [address] [id number] [address] [place] [address] Aug, [facility] [address] [id number] [address] [place] [address] Aug, [facility] [address] [id number] [address] [place] [address], [place] [address] Aug, [facility] [address] [id number] [address] [place] [address], [place] [address] Aug, [facility] [address] [id number] [address] [place] [address], [place] [address] Aug, [facility] [address] [id number] [address] [place] [id number] 17 Aug, 2011 [facility] [address] [facility] [id number] [address] [place] [address] Aug, [facility] [address] [facility] [id number] [address] [place] [id number] 10 Aug, 2011 [facility] [address] [facility] [id number] [address] [place] [address] Jul, [facility] [address] [facility] [id number] [address] [place] [address] May, IMMUNIZATIONS No Known Immunizations SOCIAL HISTORY Never Assessed REASON FOR VISIT PLAN OF CARE VITAL SIGNS MEDICATIONS Unknown Medications RESULTS No Results PROCEDURES Procedure Date Ordered Result Body Site COMPLETE CBC W/AUTO DIFF WBC June 18, 2012 HIV-1/HIV-2, SINGLE ASSAY June 18, 2012 ASSAY THYROID STIM HORMONE June 18, 2012 GLYCATED HEMOGLOBIN TEST June 18, 2012 LIPID PANEL June 18, 2012 COMPREHEN METABOLIC PANEL June 18, 2012 VENIPUNCT, ROUTINE* June 18, 2012 INSTRUCTIONS MEDICATIONS ADMINISTERED No Known Medications MEDICAL [...]
--- OUTSIDE RECORDS SUMMARY | 2020-02-07 09:20 | XMS REPORT ---
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 12898645 Problem 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 Active 281157525 Problem Hypercholesterolemia E78.0 Active 76407502 Problem Secondary hypertension I15.9 Active 26678351 Problem Acquired hypothyroidism E03.9 Active 343768902 Problem Anxiety F41.9 Active 91013975 Problem Tingling in extremities R20.2 Active 85142699 Problem Personality disorder in adult F60.9 Active 20076932 Problem Generalized anxiety disorder F41.1 A ctive 03062036 Problem Gastroesophageal reflux disease without esophagitis K21.9 Active 300176754 Problem Environmental allergies Z91.09 Active 446225417 Problem Hypothyroidism (acquired) E03.9 Acti ve 896953677 Problem Acute eczema L30.9 Active 8069638 02 Problem Depression, unspecified depression type F32.9 Active 05906818 Problem Major depressive disorder, recurrent, moderate F33 .1 Active 02836698 Problem Drug-induced erectile dysfunction N52.2 Active 733948977 Problem Acute left-sided low back pain with left-sided sciatica M54.42 Active 334616092 Problem Primary insomnia F51.01 Active 397 2004 ALLERGIES No Information ENCOUNTERS Encounter Location Date Diagnosis [facility] [address] [facility] [id number] [address] [place] [address] March, [facility] [address] [facility] [id number] [address] [place] [address] Feb, [facility] [address] [id number] [address] [place] [address] Jan, [facility] [address] [id number] [address] [place] [address] Dec, [facility] [address] [facility] [id number] [address] [place] [address] Dec, Acquired hypothyroidism E03. 9 and Other fdc (current) drug therapy Z79.899 [facility] [address] [id number] [address] [place] [address] 15 Dec, 2018 Acquired hypothyroidism E03. 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 Z79.899 [facility] [address] [facility] [id number] [address] [place] [address] Nov, [facility] [address] [id number] [address] [place] [address] Oct, [facility] [address] [facility] [id number] [address] [place] [address] Sep, Generalized anxiety disorder F41.1 ; Major depressive disorder, recurrent, moderate F33.1 and Personality disorder in adult F60.9 [facility] [address] [facility] [id number] [address] [place] [address] Aug, [facility] [address] [id number] [address] [place] [address] Aug, [facility] [address] [id number] [address] [place] [address] Jul, Generalized anxiety disorder F41.1 [facility] [address] [id number] [address] [place] [address] 24 Jul, 2018 [facility] [address] [facility] [id number] [address] [place] [address] 12 Jul, 2018 Acquired hypothyroidism E03. 9 [facility] [address] [facility] [id number] [address] [place] [address] 10 Jul, 2018 Generalized anxiety disorder F41.1 [facility] [address] [facility] [id number] [address] [place] [address] 04 Jul, 2018 Generalized anxiety disorder F41.1 ; Major depressive disorder, recurrent, moderate F33.1 and Personality disorder in adult F60.9 [facility] [address] [facility] [id number] [address] [place] [address] Jun, Generalized anxiety disorder F41.1 ; Major depressive disorder, recurrent, moderate F33.1 ; Primary insomnia F51.01 and Personality disorder in adult F60.9 [facility] [address] [place] [id number] [address] [place] [address] May, Acquired hypothyroidism E03. 9 [facility] [address] [place] [id number] [address] [place] [address] May, Hypothyroidism (acquired) E0 3.9 and Gastroesophageal reflux disease without esophagitis K21.9 [facility] [address] [facility] [id number] [address] [place] [address] Apr, [facility] [address] [facility] [id number] [address] [place] [address] Apr, Skin infection L08.9 [facility] [address] [facility] [id number] [address] [place] [address] 05 Apr, 2018 Generalized anxiety disorder F41.1 ; Major depressive disorder, recurrent, moderate F33.1 ; Primary insomnia F51.01 and Personality disorder in adult F60.9 [facility] [address] [place] [id number] [address] [place] [address] March, Generalized anxiety disorder F41.1 ; Major depressive disorder, recurrent, moderate F33.1 and Personality disorder in adult F60.9 [facility] [address] [facility] [id number] [address] [place] [address] Feb, [place] [address] [id number] [address] [place] [address] Dec, Generalized anxiety disorder F41.1 ; Major depressive disorder, recurrent, moderate F33.1 and Personality disorder in adult F60.9 [facility] [address] [id number] [address] [place] [address] 06 Dec, 2017 Acute left-sided low back pa in with left-sided sciatica M54.42 [facility] [address] [id number] [address] [place] [address] Nov, [facility] [address] [facility] [id number] [address] [place] [address] Oct, Generalized anxiety disorder F41.1 ; Major depressive disorder, recurrent, moderate F33.1 and Personality disorder in adult F60.9 [facility] [address] [facility] [id number] [address] [place] [address] Sep, Acquired hypothyroidism E03. 9 ; Hypercholesterolemia E78.0 ; Generalized anxiety disorder F41.1 and Drug-induced erectile dysfunction N52.2 [facility] [address] [facility] [id number] [address] [place] [address] Sep, [facility] [address] [facility] [id number] [address] [place] [address] Sep, Acquired hypothyroidism E03. 9 ; Hypercholesterolemia E78.0 ; Generalized anxiety disorder F41.1 and Drug-induced erectile dysfunction N52.2 [facility] [address] [facility] [id number] [address] [place] [address] Sep, Generalized anxiety disorder F41.1 ; Major depressive disorder, recurrent, moderate F33.1 and Personality disorder in adult F60.9 [facility] [address] [id number] [address] [place] [id number] Aug, Dental examination Z01.20 [facility] [address] [id number] [address] [place] [id number] Aug, Dental caries K02.9 [facility] [id number] [place] [address] 13 Aug, 2017 [facility] [address] [id number] [address] [place] [address] [id number] 10 Aug, 2017 Dental examination Z01.20 [place] [id number] [place] [address] 20 Jul, 2017 Major depressive disorder, r ecurrent, moderate F33.1 [place] [address] [address] 19 Jul, 2017 Generalized anxiety disorder F41.1 ; Major depressive disorder, recurrent, moderate F33.1 and Personality disorder in adult F60.9 [place] [address] [address] 08 Jul, 2017 Generalized anxiety disorder F41.1 ; Major depressive disorder, recurrent, moderate F33.1 and Personality disorder in adult F60.9 [place] [address] [address] Jun, Generalized anxiety disorder F41.1 ; Major depressive disorder, recurrent, moderate F33.1 and Personality disorder in adult F60.9 [place] [address] [address] Apr, Generalized anxiety disorder F41.1 ; Major depressive disorder, recurrent, moderate F33.1 and Personality disorder in adult F60.9 [place] [address] [place] [id number] [address] [place] [address] March, Acquired hypothyroidism E03. 9 [place] [address] [place] [id number] [address] [place] [address] March, Acquired hypothyroidism E03. 9 and Left lower quadrant pain R10.32 [place] [address] [place] [id number] [address] [place] [address] March, Hypercholesterolemia E78.0 ; Acquired hypothyroidism E03.9 ; Insomnia, unspecified type G47.00 ; Secondary hypertension I15.9 ; Gastroesophageal reflux disease, esophagitis presence not specified K21.9 ; Tingling in extremities R20.2 ; Environmental allergies Z91.09 ; Depression, unspecified depression type F32.9 and Left lower quadrant pain R10.32 [place] [address] [place] [id number] [address] [place] [address] Feb, High risk sexual behavior Z7 2.51 [place] [address] [address] Feb, Major depressive disorder, r ecurrent, moderate F33.1 and Generalized anxiety disorder F41.1 [place] [address] [place] [id number] [place] [address] 22 Dec, 2016 Major depressive disorder, r ecurrent, moderate F33.1 [place] [address] [place] [id number] [place] [address] 17 Dec, 2016 [place] [address] [address] 16 Dec, 2016 Acquired hypothyroidism E03. 9 and High risk sexual behavior Z72.51 [place] [address] [place] [id number] [place] [address] 07 Dec, 2016 Major depressive disorder, r ecurrent, moderate F33.1 and Generalized anxiety disorder F41.1 [place] [address] [address] 07 Dec, 2016 Acquired hypothyroidism E03. 9 ; Secondary hypertension I15.9 and Acute eczema L30.9 [place] [address] [place] [id number] [address] [place] [address] Nov, Acquired hypothyroidism E03. 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 ; Hypercholesterolemia E78.0 ; Gastroesophageal reflux disease, esophagitis presence not specified K21.9 ; Anxiety F41.9 and Secondary hypertension I15.9 [place] [address] [place] [id number] [address] [place] [address] Oct, Major depressive disorder, r ecurrent, moderate F33.1 and Generalized anxiety disorder F41.1 [place] [address] [place] [id number] [place] [address] Aug, [place] [address] [place] [id number] [address] [place] [address] Aug, Insomnia, unspecified type G 47.00 ; Acquired hypothyroidism E03.9 ; Hypercholesterolemia E78.0 and Gastroesophageal reflux disease, esophagitis presence not specified K21.9 [place] [address] [place] [id number] [place] [address] Jul, [place] [address] [address] Jul, Major depressive disorder, r ecurrent, in partial remission F33.41 and Generalized anxiety disorder F41.1 [place] [address] [address] Jun, [place] [address] [address] Jun, Cervical pain (neck) M54.2 a nd Cervical neuropathic pain M54.12 [place] [address] [address] Apr, Insomnia, unspecified type G 47.00 ; Acquired hypothyroidism E03.9 ; Hypercholesterolemia E78.0 ; 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 ; Depression, unspecified depression type F32.9 ; 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 ; Gastroesophageal reflux disease, esophagitis presence not specified K21.9 ; Anxiety F41.9 ; Secondary hypertension I15.9 and Post- nasal drainage R09.82 [place] [address] [place] [id number] [address] [place] [address] Apr, [place] [address] [place] [id number] [place] [address] March, [place] [address] [address] March, Unspecified hypothyroidism 2 44.9 and HTN (hypertension) 401.9 [place] [address] [address] March, [facility] [address] [address] Dec, [place] [address] [address] Nov, [place] [address] [address] Sep, Generalized anxiety disorder F41.1 and Major depressive disorder, recurrent, in partial remission F33.41 [place] [address] [address] Jun, Unspecified hypothyroidism 2 44.9 ; Sciatica 724.3 ; Major depressive disorder, recurrent episode, in partial or unspecified remission 296.35 ; Combined hyperlipidemia 272.2 ; HTN (hypertension) 401.9 ; Hidrosis 780.8 ; Cat allergies 477.8 and Environmental allergies V15.09 [place] [address] [address] Jun, Major depressive disorder, r ecurrent episode, in partial or unspecified remission 296.35 ; Insomnia, unspecified 780.52 and Generalized anxiety disorder 300.02 [place] [address] [address] May, [place] [address] [address] Apr, [place] [address] [address] Apr, Closed mallet fracture of di stal phalanx of ring finger 816.02 [place] [address] [address] March, Depression, major, recurrent , moderate 296.32 ; Generalized anxiety disorder 300.02 and Borderline personality disorder 301.83 [facility] [address] [id number] [address] [place] [address] 14 Feb, 2015 [facility] [address] [id number] [address] [place] [address] Feb, [facility] [address] [id number] [address] [place] [address] Jan, [facility] [address] [id number] [address] [place] [address] Jan, [facility] [address] [id number] [address] [place] [address] Jan, [facility] [address] [id number] [address] [place] [address] Jan, [facility] [address] [id number] [address] [place] [address] Jan, [facility] [address] [id number] [address] [place] [address] Jan, [facility] [address] [id number] [address] [place] [address] Dec, [facility] [address] [id number] [address] [place] [address] Dec, [facility] [address] [id number] [address] [place] [address] Dec, [facility] [address] [id number] [address] [place] [address] Dec, [facility] [address] [id number] [address] [place] [address] Nov, [facility] [address] [id number] [address] [place] [address] Nov, [facility] [address] [id number] [address] [place] [address] Nov, [facility] [address] [id number] [address] [place] [address], [place] [address] Nov, [facility] [address] [id number] [address] [place] [address], [place] [address] Nov, [facility] [address] [id number] [address] [place] [address], [place] [address] Nov, [facility] [address] [id number] [address] [place] [address], [place] [address] Oct, [facility] [address] [id number] [address] [place] [address], [place] [address] Oct, [facility] [address] [id number] [address] [place] [address], [place] [address] Oct, [facility] [address] [id number] [address] [place] [address], [place] [address] Oct, [facility] [address] [id number] [address] [place] [address], [place] [address] Oct, [facility] [address] [id number] [address] [place] [address], [place] [address] Oct, [facility] [address] [id number] [address] [place] [address], [place] [address] Sep, [facility] [address] [id number] [address] [place] [address], [place] [address] Sep, [facility] [address] [id number] [address] [place] [address], [place] [address] Sep, [facility] [address] [id number] [address] [place] [address], [place] [address] Sep, [facility] [address] [id number] [address] [place] [address], [place] [address] Aug, [facility] [address] [id number] [address] [place] [address], [place] [address] Aug, [facility] [address] [id number] [address] [place] [address], [place] [address] Apr, [facility] [address] [id number] [address] [place] [address], [place] [address] Apr, [facility] [address] [id number] [address] [place] [address], [place] [address] Apr, [facility] [address] [id number] [address] [place] [address], [place] [address] Apr, [facility] [address] [id number] [address] [place] [address], [place] [address] Apr, [facility] [address] [id number] [address] [place] [address], [place] [address] Apr, [facility] [address] [id number] [address] [place] [address], [place] [address] March, [facility] [address] [id number] [address] [place] [address], [place] [address] March, [facility] [address] [id number] [address] [place] [address], [place] [address] Dec, [facility] [address] [id number] [address] [place] [address], [place] [address] Dec, [facility] [address] [id number] [address] [place] [address], [place] [address] Sep, [facility] [address] [id number] [address] [place] [address], [place] [address] Sep, [facility] [address] [id number] [address] [place] [address], [place] [address] Aug, [facility] [address] [id number] [address] [place] [address], [place] [address] Aug, [facility] [address] [id number] [address] [place] [address], [place] [address] Aug, [facility] [address] [id number] [address] [place] [address], [place] [address] Aug, [facility] [address] [id number] [address] [place] [address], [place] [address] 09 Aug, 2013 [facility] [address] [id number] [address] [place] [address], [place] [address] Aug, [facility] [address] [id number] [address] [place] [address], [place] [address] Aug, [facility] [address] [id number] [address] [place] [address], [place] [address] Aug, [facility] [address] [id number] [address] [place] [address], [place] [address] Aug, [facility] [address] [id number] [address] [place] [address], [place] [address] Aug, [facility] [address] [id number] [address] [place] [address], [place] [address] Jul, [facility] [address] [id number] [address] [place] [address], [place] [address] Jul, [facility] [address] [id number] [address] [place] [address], [place] [address] 05 Jul, 2013 [facility] [address] [id number] [address] [place] [address], [place] [address] Jun, [facility] [address] [id number] [address] [place] [address], [place] [address] May, [facility] [address] [id number] [address] [place] [address], [place] [address] May, [facility] [address] [id number] [address] [place] [address], [place] [address] May, [facility] [address] [id number] [address] [place] [address], [place] [address] Apr, [facility] [address] [id number] [address] [place] [address], [place] [address] March, [facility] [address] [id number] [address] [place] [address], [place] [address] March, [facility] [address] [id number] [address] [place] [address], [place] [address] Feb, [facility] [address] [id number] [address] [place] [address], [place] [address] Feb, [facility] [address] [id number] [address] [place] [address], [place] [address] Feb, [facility] [address] [id number] [address] [place] [address], [place] [address] Feb, [facility] [address] [id number] [address] [place] [address], [place] [address] Jan, [facility] [address] [id number] [address] [place] [address], [place] [address] Jan, [facility] [address] [id number] [address] [place] [address], [place] [address] Jan, [facility] [address] [id number] [address] [place] [address], [place] [address] Jan, [facility] [address] [id number] [address] [place] [address], [place] [address] Dec, [facility] [address] [id number] [address] [place] [address], [place] [address] Dec, [facility] [address] [id number] [address] [place] [address], [place] [address] Dec, [facility] [address] [id number] [address] [place] [address], [place] [address] Nov, [facility] [address] [id number] [address] [place] [address], [place] [address] Nov, [facility] [address] [id number] [address] [place] [address], [place] [address] Nov, [facility] [address] [id number] [address] [place] [address], [place] [address] Nov, [facility] [address] [id number] [address] [place] [address], [place] [address] Oct, [facility] [address] [id number] [address] [place] [address], [place] [address] Oct, [facility] [address] [id number] [address] [place] [address], [place] [address] Oct, [facility] [address] [id number] [address] [place] [address], [place] [address] Oct, [facility] [address] [id number] [address] [place] [address], [place] [address] Sep, [facility] [address] [id number] [address] [place] [address], [place] [address] Sep, [facility] [address] [id number] [address] [place] [address], [place] [address] Sep, [facility] [address] [id number] [address] [place] [address], [place] [address] Sep, [facility] [address] [id number] [address] [place] [address], [place] [address] Aug, [facility] [address] [id number] [address] [place] [address], [place] [address] Aug, [facility] [address] [id number] [address] [place] [address], [place] [address] Aug, [facility] [address] [id number] [address] [place] [address], [place] [address] Jul, [facility] [address] [id number] [address] [place] [address], [place] [address] Jun, [facility] [address] [id number] [address] [place] [address], [place] [address] May, [facility] [address] [id number] [address] [place] [address], [place] [address] May, [facility] [address] [id number] [address] [place] [address], [place] [address] May, [facility] [address] [id number] [address] [place] [address], [place] [address] March, [facility] [address] [id number] [address] [place] [address], [place] [address] March, [facility] [address] [id number] [address] [place] [address], [place] [address] Feb, [facility] [address] [id number] [address] [place] [address], [place] [address] Feb, [facility] [address] [id number] [address] [place] [address], [place] [address] Feb, [facility] [address] [id number] [address] [place] [address], [place] [address] Feb, [facility] [address] [id number] [address] [place] [address], [place] [address] Feb, [facility] [address] [id number] [address] [place] [address], [place] [address] Feb, [facility] [address] [id number] [address] [place] [address], [place] [address] Feb, [facility] [address] [id number] [address] [place] [address], [place] [address] Feb, [facility] [address] [id number] [address] [place] [address], [place] [address] Dec, [facility] [address] [id number] [address] [place] [address], [place] [address] Nov, [facility] [address] [id number] [address] [place] [address], [place] [address] Nov, [facility] [address] [id number] [address] [place] [address], [place] [address] Nov, [facility] [address] [id number] [address] [place] [address], [place] [address] Nov, [facility] [address] [id number] [address] [place] [id number] 13 Nov, 2011 [facility] [address] [id number] [address] [place] [address], [place] [address] Nov, [facility] [address] [id number] [address] [place] [address] Oct, [facility] [address] [id number] [address] [place] [address], [place] [address] Sep, [facility] [address] [id number] [address] [place] [address] Sep, [facility] [address] [id number] [address] [place] [address], [place] [address] Sep, [facility] [address] [id number] [address] [place] [address], [place] [address] Sep, [facility] [address] [id number] [address] [place] [address], [place] [address] Aug, [facility] [address] [id number] [address] [place] [address], [place] [address] 24 Aug, 2011 [facility] [address] [id number] [address] [place] [address] Aug, [facility] [address] [id number] [address] [place] [address] Aug, [facility] [address] [id number] [address] [place] [address] Aug, [facility] [address] [id number] [address] [place] [address] 20 Aug, 2011 [facility] [address] [id number] [address] [place] [address], [place] [address] 17 Aug, 2011 [facility] [address] [id number] [address] [place] [address] 10 Aug, 2011 [facility] [address] [id number] [address] [place] [id number] 10 Aug, 2011 [facility] [address] [id number] [address] [address] Jul, [facility] [address] [facility] [id number] [address] [place] [address] May, IMMUNIZATIONS No Known Immunizations SOCIAL HISTORY Never Assessed REASON FOR VISIT EMR-[facility] PLAN OF CARE VITAL SIGNS MEDICATIONS Unknown [...]
--- OUTSIDE RECORDS SUMMARY | 2020-02-07 09:20 | XMS REPORT ---
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 88980780 Problem 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 Active 677725585 Problem Hypercholesterolemia E78.0 Active 08628918 Problem Secondary hypertension I15.9 Active 24289115 Problem Acquired hypothyroidism E03.9 Active 822724822 Problem Anxiety F41.9 Active 20028604 Problem Tingling in extremities R20.2 Active 65324986 Problem Personality disorder in adult F60.9 Active 05129096 Problem Generalized anxiety disorder F41.1 A ctive 64115997 Problem Gastroesophageal reflux disease without esophagitis K21.9 Active 076232386 Problem Environmental allergies Z91.09 Active 318427910 Problem Hypothyroidism (acquired) E03.9 Acti ve 993279377 Problem Acute eczema L30.9 Active 7186946 02 Problem Depression, unspecified depression type F32.9 Active 35602247 Problem Major depressive disorder, recurrent, moderate F33 .1 Active 90526379 Problem Drug-induced erectile dysfunction N52.2 Active 362982447 Problem Acute left-sided low back pain with left-sided sciatica M54.42 Active 734478584 Problem Primary insomnia F51.01 Active 397 2004 ALLERGIES No Information ENCOUNTERS Encounter Location Date Diagnosis [facility] [address] [facility] [id number] [address] [place] [address] May, [facility] [address] [facility] [id number] [address] [place] [address] Feb, Generalized anxiety disorder F41.1 ; Major depressive disorder, recurrent, moderate F33.1 and Personality disorder in adult F60.9 [facility] [address] [id number] [address] [place] [id number] Jan, [facility] [address] [id number] [address] [place] [address] Dec, [facility] [address] [id number] [address] [place] [address] Dec, Acquired hypothyroidism E03. 9 and Other jail (current) drug therapy Z79.899 [facility] [address] [id number] [address] [place] [address] Dec, Acquired hypothyroidism E03. 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 care registered nurse (current) drug therapy Z79.899 [facility] [address] [id number] [address] [place] [address] Nov, [facility] [address] [id number] [address] [place] [phone] Oct, [facility] [address] [id number] [address] [place] [address] Sep, Generalized anxiety disorder F41.1 ; Major depressive disorder, recurrent, moderate F33.1 and Personality disorder in adult F60.9 [facility] [address] [id number] [address] [place] [phone] Aug, [facility] [address] [id number] [address] [place] [address] Aug, [facility] [address] [facility] [id number] [address] [place] [phone] Jul, Generalized anxiety disorder F41.1 [facility] [address] [id number] [address] [place] [phone] Jul, [facility] [address] [facility] [id number] [address] [place] [address] Jul, Acquired hypothyroidism E03. 9 [facility] [address] [facility] [id number] [address] [place] [phone] Jul, Generalized anxiety disorder F41.1 [facility] [address] [facility] [id number] [address] [place] [address] Jul, Generalized anxiety disorder F41.1 ; Major depressive disorder, recurrent, moderate F33.1 and Personality disorder in adult F60.9 [facility] [address] [facility] [id number] [address] [place] [phone] Jun, Generalized anxiety disorder F41.1 ; Major depressive disorder, recurrent, moderate F33.1 ; Primary insomnia F51.01 and Personality disorder in adult F60.9 [place] [address] [facility] [id number] [address] [place] [address] May, Acquired hypothyroidism E03. 9 [facility] [address] [facility] [id number] [address] [place] [address] May, Hypothyroidism (acquired) E0 3.9 and Gastroesophageal reflux disease without esophagitis K21.9 [facility] [address] [facility] [id number] [address] [place] [address] Apr, [facility] [address] [facility] [id number] [address] [place] [address] Apr, Skin infection L08.9 [facility] [address] [facility] [id number] [address] [place] [id number] 05 Apr, 2018 Generalized anxiety disorder F41.1 ; Major depressive disorder, recurrent, moderate F33.1 ; Primary insomnia F51.01 and Personality disorder in adult F60.9 [facility] [address] [facility] [id number] [address] [place] [address] March, Generalized anxiety disorder F41.1 ; Major depressive disorder, recurrent, moderate F33.1 and Personality disorder in adult F60.9 [facility] [address] [facility] [id number] [address] [place] [address] Feb, [facility] [address] [facility] [id number] [address] [place] [address] Dec, Generalized anxiety disorder F41.1 ; Major depressive disorder, recurrent, moderate F33.1 and Personality disorder in adult F60.9 [facility] [address] [facility] [id number] [address] [place] [address] Dec, Acute left-sided low back pa in with left-sided sciatica M54.42 [facility] [address] [facility] [id number] [address] [place] [address] Nov, [facility] [address] [facility] [id number] [address] [place] [phone] Oct, Generalized anxiety disorder F41.1 ; Major depressive disorder, recurrent, moderate F33.1 and Personality disorder in adult F60.9 [facility] [address] [facility] [id number] [address] [place] [phone] Sep, Acquired hypothyroidism E03. 9 ; Hypercholesterolemia E78.0 ; Generalized anxiety disorder F41.1 and Drug-induced erectile dysfunction N52.2 [facility] [address] [facility] [id number] [address] [place] [phone] Sep, [facility] [address] [facility] [id number] [address] [place] [phone] Sep, Acquired hypothyroidism E03. 9 ; Hypercholesterolemia E78.0 ; Generalized anxiety disorder F41.1 and Drug-induced erectile dysfunction N52.2 [facility] [address] [facility] [id number] [address] [place] [phone] Sep, Generalized anxiety disorder F41.1 ; Major depressive disorder, recurrent, moderate F33.1 and Personality disorder in adult F60.9 [facility] [address] [id number] [address] [place] [address] [id number] Aug, Dental examination Z01.20 [facility] [address] [id number] [address] [place] [address] [id number] Aug, Dental caries K02.9 [facility] [address] [id number] [address] [place] [phone] 13 Aug, 2017 [facility] [address] [id number] [address] [place] [address] [id number] 10 Aug, 2017 Dental examination Z01.20 [facility] [address] [facility] [id number] [address] [place] [phone] 20 Jul, 2017 Major depressive disorder, r ecurrent, moderate F33.1 [facility] [address] [facility] [id number] [address] [place] [phone] 19 Jul, 2017 Generalized anxiety disorder F41.1 ; Major depressive disorder, recurrent, moderate F33.1 and Personality disorder in adult F60.9 [facility] [address] [facility] [id number] [address] [place] [id number] 08 Jul, 2017 Generalized anxiety disorder F41.1 ; Major depressive disorder, recurrent, moderate F33.1 and Personality disorder in adult F60.9 [facility] [address] [facility] [id number] [address] [place] [id number] Jun, Generalized anxiety disorder F41.1 ; Major depressive disorder, recurrent, moderate F33.1 and Personality disorder in adult F60.9 [facility] [address] [facility] [id number] [address] [place] [phone] Apr, Generalized anxiety disorder F41.1 ; Major depressive disorder, recurrent, moderate F33.1 and Personality disorder in adult F60.9 [facility] [address] [facility] [id number] [address] [place] [phone] March, Acquired hypothyroidism E03. 9 [facility] [address] [facility] [id number] [address] [place] [phone] March, Acquired hypothyroidism E03. 9 and Left lower quadrant pain R10.32 [facility] [address] [facility] [id number] [address] [place] [phone] March, Hypercholesterolemia E78.0 ; Acquired hypothyroidism E03.9 ; Insomnia, unspecified type G47.00 ; Secondary hypertension I15.9 ; Gastroesophageal reflux disease, esophagitis presence not specified K21.9 ; Tingling in extremities R20.2 ; Environmental allergies Z91.09 ; Depression, unspecified depression type F32.9 and Left lower quadrant pain R10.32 [place] [address] [place] [id number] Feb, High risk sexual behavior Z7 2.51 [place] [address] Feb, Major depressive disorder, r ecurrent, moderate F33.1 and Generalized anxiety disorder F41.1 [place] [id number] 22 Dec, 2016 Major depressive disorder, r ecurrent, moderate F33.1 [place] [address] [place] [id number] 17 Dec, 2016 [place] [address] [address] 16 Dec, 2016 Acquired hypothyroidism E03. 9 and High risk sexual behavior Z72.51 [place] [address] [place] [id number] 07 Dec, 2016 Major depressive disorder, r ecurrent, moderate F33.1 and Generalized anxiety disorder F41.1 [place] [address] [place] [id number] 07 Dec, 2016 Acquired hypothyroidism E03. 9 ; Secondary hypertension I15.9 and Acute eczema L30.9 [place] [address] [place] [id number] Nov, Acquired hypothyroidism E03. 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 ; Hypercholesterolemia E78.0 ; Gastroesophageal reflux disease, esophagitis presence not specified K21.9 ; Anxiety F41.9 and Secondary hypertension I15.9 [place] [address] [place] [id number] [address] [place] [phone] Oct, Major depressive disorder, r ecurrent, moderate F33.1 and Generalized anxiety disorder F41.1 [place] [address] [facility] [id number] [address] [place] [phone] Aug, [place] [address] [place] [id number] [place] [address] Aug, Insomnia, unspecified type G 47.00 ; Acquired hypothyroidism E03.9 ; Hypercholesterolemia E78.0 and Gastroesophageal reflux disease, esophagitis presence not specified K21.9 [place] [address] [address] Jul, [place] [address] [place] [id number] [place] [phone] Jul, Major depressive disorder, r ecurrent, in partial remission F33.41 and Generalized anxiety disorder F41.1 [place] [address] [place] [id number] [place] [address] Jun, [address] [address] Jun, Cervical pain (neck) M54.2 a nd Cervical neuropathic pain M54.12 [place] [address] [place] [id number] [place] [address] Apr, Insomnia, unspecified type G 47.00 ; Acquired hypothyroidism E03.9 ; Hypercholesterolemia E78.0 ; 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 ; Depression, unspecified depression type F32.9 ; 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 ; Gastroesophageal reflux disease, esophagitis presence not specified K21.9 ; Anxiety F41.9 ; Secondary hypertension I15.9 and Post- nasal drainage R09.82 [place] [address] [place] [id number] [address] [place] [phone] Apr, [place] [address] [address] March, [facility] [address] [address] March, Unspecified hypothyroidism 2 44.9 and HTN (hypertension) 401.9 [place] [address] [place] [id number] [address] [place] [address] March, [facility] [address] [phone] Dec, [facility] [address] [address] Nov, [place] [address] [address] Sep, Generalized anxiety disorder F41.1 and Major depressive disorder, recurrent, in partial remission F33.41 [place] [address] [address] Jun, Unspecified hypothyroidism 2 44.9 ; Sciatica 724.3 ; Major depressive disorder, recurrent episode, in partial or unspecified remission 296.35 ; Combined hyperlipidemia 272.2 ; HTN (hypertension) 401.9 ; Hidrosis 780.8 ; Cat allergies 477.8 and Environmental allergies V15.09 [place] [address] [place] [id number] [address] [place] [phone] Jun, Major depressive disorder, r ecurrent episode, in partial or unspecified remission 296.35 ; Insomnia, unspecified 780.52 and Generalized anxiety disorder 300.02 [facility] [address] [place] [id number] [address] [place] [phone] May, [place] [address] [phone] Apr, [place] [address] [address] Apr, Closed mallet fracture of di stal phalanx of ring finger 816.02 [place] [address] [place] [address] March, Depression, major, recurrent , moderate 296.32 ; Generalized anxiety disorder 300.02 and Borderline personality disorder 301.83 [facility] [address] [id number] [address] [place] [address] Feb, [facility] [address] [facility] [id number] [address] [place] [address] Feb, [facility] [address] [id number] [address] [place] [phone] Jan, [facility] [address] [id number] [address] [place] [address] Jan, [facility] [address] [id number] [address] [place] [address] Jan, [facility] [address] [id number] [address] [place] [address] Jan, [facility] [address] [id number] [address] [place] [address] Jan, [facility] [address] [id number] [address] [place] [address] Jan, [facility] [address] [id number] [address] [place] [address] Dec, [facility] [address] [id number] [address] [place] [address] Dec, [facility] [address] [id number] [address] [place] [address] Dec, [facility] [address] [id number] [address] [place] [address] Dec, [facility] [address] [id number] [address] [place] [phone] Nov, [facility] [address] [facility] [id number] [address] [place] [address] Nov, [facility] [address] [id number] [address] [place] [address], [place] [address] Nov, [facility] [address] [id number] [address] [place] [address], [place] [address] Nov, [facility] [address] [id number] [address] [place] [address], [place] [address] Nov, [facility] [address] [id number] [address] [place] [address], [place] [address] Nov, [facility] [address] [id number] [address] [place] [address], [place] [address] Oct, [facility] [address] [id number] [address] [place] [address], [place] [address] Oct, [facility] [address] [id number] [address] [place] [address], [place] [address] Oct, [facility] [address] [id number] [address] [place] [address], [place] [address] Oct, [facility] [address] [id number] [address] [place] [address], [place] [address] Oct, [facility] [address] [id number] [address] [place] [address], [place] [address] Oct, [facility] [address] [id number] [address] [place] [address], [place] [address] Sep, [facility] [address] [id number] [address] [place] [address], [place] [address] Sep, [facility] [address] [id number] [address] [place] [address], [place] [address] Sep, [facility] [address] [id number] [address] [place] [address], [place] [address] Sep, [facility] [address] [id number] [address] [place] [address], [place] [address] Aug, [facility] [address] [id number] [address] [place] [address], [place] [address] Aug, [facility] [address] [id number] [facility] [place] [address] Apr, [facility] [address] [id number] [address] [place] [address], [place] [address] Apr, [facility] [address] [id number] [address] [place] [address], [place] [address] 17 Apr, 2014 [facility] [address] [id number] [address] [place] [address], [place] [address] 17 Apr, 2014 [facility] [address] [id number] [address] [place] [address], [place] [address] Apr, [facility] [address] [id number] [address] [place] [address], [place] [address] Apr, [facility] [address] [id number] [address] [place] [address], [place] [address] March, [facility] [address] [id number] [address] [place] [address], [place] [address] March, [facility] [address] [id number] [address] [place] [address], [place] [address] Dec, [facility] [address] [id number] [address] [place] [address], [place] [address] Dec, [facility] [address] [id number] [address] [place] [address], [place] [address] Sep, [facility] [address] [id number] [address] [place] [address], [place] [address] Sep, [facility] [address] [id number] [address] [place] [address], [place] [address] Aug, [facility] [address] [id number] [address] [place] [address], [place] [address] Aug, [facility] [address] [id number] [address] [place] [address], [place] [address] Aug, [facility] [address] [id number] [address] [place] [address], [place] [address] Aug, [facility] [address] [id number] [address] [place] [address], [place] [address] Aug, [facility] [address] [id number] [address] [place] [address], [place] [address] Aug, [facility] [address] [id number] [address] [place] [address], [place] [address] Aug, [facility] [address] [id number] [address] [place] [address], [place] [address] Aug, [facility] [address] [id number] [address] [place] [address], [place] [address] Aug, [facility] [address] [id number] [address] [place] [address], [place] [address] Aug, [facility] [address] [id number] [address] [place] [address], [place] [address] Jul, [facility] [address] [id number] [address] [place] [address], [place] [address] Jul, [facility] [address] [id number] [address] [place] [address], [place] [address] 05 Jul, 2013 [facility] [address] [id number] [address] [place] [address], [place] [address] Jun, [facility] [address] [id number] [address] [place] [address], [place] [address] May, [facility] [address] [id number] [address] [place] [address], [place] [address] May, [facility] [address] [id number] [address] [place] [address], [place] [address] May, [facility] [address] [id number] [address] [place] [address], [place] [address] Apr, [facility] [address] [id number] [address] [place] [address], [place] [address] March, [facility] [address] [id number] [address] [place] [address], [place] [address] March, [facility] [address] [id number] [address] [place] [address], [place] [address] Feb, [facility] [address] [id number] [address] [place] [address], [place] [address] Feb, [facility] [address] [id number] [address] [place] [address], [place] [address] Feb, [facility] [address] [id number] [address] [place] [address], [place] [address] Feb, [facility] [address] [id number] [address] [place] [address], [place] [address] Jan, [facility] [address] [id number] [address] [place] [address], [place] [address] Jan, [facility] [address] [id number] [address] [place] [address], [place] [address] Jan, [facility] [address] [id number] [address] [place] [address], [place] [address] Jan, [facility] [address] [id number] [address] [place] [address], [place] [address] Dec, [facility] [address] [id number] [address] [place] [address], [place] [address] Dec, [facility] [address] [id number] [address] [place] [address], [place] [address] Dec, [facility] [address] [id number] [address] [place] [address], [place] [address] Nov, [facility] [address] [id number] [address] [place] [address], [place] [address] Nov, [facility] [address] [id number] [address] [place] [address], [place] [address] Nov, [facility] [address] [id number] [address] [place] [address] Nov, [facility] [address] [id number] [address] [place] [address], [place] [address] Oct, [facility] [address] [id number] [address] [place] [address], [place] [address] Oct, [facility] [address] [id number] [address] [place] [address], [place] [address] Oct, [facility] [address] [id number] [address] [place] [address], [place] [address] Oct, [facility] [address] [id number] [address] [place] [address], [place] [address] Sep, [facility] [address] [id number] [address] [place] [address], [place] [address] Sep, [facility] [address] [id number] [address] [place] [address], [place] [address] Sep, [facility] [address] [id number] [address] [place] [address], [place] [address] Sep, [facility] [address] [id number] [address] [place] [address], [place] [address] Aug, [facility] [address] [id number] [address] [place] [address], [place] [address] Aug, [facility] [address] [id number] [address] [place] [address], [place] [address] Aug, [facility] [address] [id number] [address] [place] [address], [place] [address] Jul, [facility] [address] [id number] [address] [place] [address], [place] [address] Jun, [facility] [address] [id number] [address] [place] [address], [place] [address] May, [facility] [address] [id number] [address] [place] [address], [place] [address] May, [facility] [address] [id number] [address] [place] [address], [place] [address] May, [facility] [address] [id number] [address] [place] [address], [place] [address] March, [facility] [address] [id number] [address] [place] [address], [place] [address] March, [facility] [address] [id number] [address] [place] [address], [place] [address] Feb, [facility] [address] [id number] [address] [place] [address], [place] [address] Feb, [facility] [address] [id number] [address] [place] [address], [place] [address] 24 Feb, 2012 [facility] [address] [id number] [address] [place] [address], [place] [address] Feb, [facility] [address] [id number] [address] [place] [address], [place] [address] Feb, [facility] [address] [id number] [address] [place] [address], [place] [address] Feb, [facility] [address] [id number] [address] [place] [address], [place] [address] Feb, [facility] [address] [id number] [address] [place] [address], [place] [address] Feb, [facility] [address] [id number] [address] [place] [address], [place] [address] Dec, [facility] [address] [id number] [address] [place] [address], [place] [address] Nov, [facility] [address] [id number] [address] [place] [address], [place] [address] Nov, [facility] [address] [id number] [address] [place] [address], [place] [address] Nov, [facility] [address] [id number] [address] [place] [address], [place] [address] 13 Nov, 2011 [facility] [address] [id number] [address] [place] [address], [place] [address] 13 Nov, 2011 [facility] [address] [id number] [address] [place] [address], [place] [address] 12 Nov, 2011 [facility] [address] [id number] [address] [place] [address], [place] [address] Oct, [facility] [address] [id number] [address] [place] [address], [place] [address] Sep, [facility] [address] [id number] [address] [place] [address], [place] [address] Sep, [facility] [address] [id number] [address] [place] [address], [place] [address] Sep, [facility] [address] [id number] [address] [place] [address], [place] [address] Sep, [facility] [address] [id number] [address] [place] [address] Aug, [facility] [address] [id number] [address] [place] [address], [place] [address] 24 Aug, 2011 [facility] [address] [id number] [address] [place] [address] Aug, [facility] [address] [id number] [address] [place] [address] Aug, [facility] [address] [id number] [address] [place] [address] 20 Aug, 2011 [facility] [address] [id number] [address] [place] [address], [place] [address] 20 Aug, 2011 [facility] [address] [id number] [address] [place] [address] 17 Aug, 2011 [facility] [address] [id number] [address] [place] [address] 10 Aug, 2011 [facility] [address] [id number] [address] [place] [address] 10 Aug, 2011 [facility] [address] [facility] [id number] [address] [place] [address] Jul, [facility] [address] [facility] [id number] [address] [place] [address] May, IMMUNIZATIONS No Known Immunizations SOCIAL HISTORY Never Assessed REASON FOR VISIT [place] [place] C[place] VITAL SIGNS MEDICATIONS Unknown [...]
--- OUTSIDE RECORDS SUMMARY | 2020-02-07 09:20 | XMS REPORT ---
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 95374431 Problem 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 Active 501187795 Problem Hypercholesterolemia E78.0 Active 93288693 Problem Secondary hypertension I15.9 Active 09454638 Problem Acquired hypothyroidism E03.9 Active 298154479 Problem Anxiety F41.9 Active 30682521 Problem Tingling in extremities R20.2 Active 37430152 Problem Personality disorder in adult F60.9 Active 46722687 Problem Generalized anxiety disorder F41.1 A ctive 16634006 Problem Gastroesophageal reflux disease without esophagitis K21.9 Active 024258692 Problem Environmental allergies Z91.09 Active 408527414 Problem Hypothyroidism (acquired) E03.9 Acti ve 801421939 Problem Acute eczema L30.9 Active 8264224 02 Problem Depression, unspecified depression type F32.9 Active 03809333 Problem Major depressive disorder, recurrent, moderate F33 .1 Active 55645422 Problem Drug-induced erectile dysfunction N52.2 Active 639016363 Problem Acute left-sided low back pain with left-sided sciatica M54.42 Active 486423790 Problem Primary insomnia F51.01 Active 397 2004 ALLERGIES No Information ENCOUNTERS Encounter Location Date Diagnosis [facility] [address] [facility] [id number] [address] [place] [phone] May, [facility] [address] [facility] [id number] [address] [place] [phone] March, [facility] [address] [id number] [address] [place] [phone] Feb, Generalized anxiety disorder F41.1 ; Major depressive disorder, recurrent, moderate F33.1 and Personality disorder in adult F60.9 [facility] [address] [id number] [address] [place] [phone] Jan, [facility] [address] [id number] [address] [place] [phone] Dec, [facility] [address] [id number] [address] [place] [phone] Dec, Acquired hypothyroidism E03. 9 and Other care home (current) drug therapy Z79.899 [facility] [address] [id number] [address] [place] [phone] Dec, Acquired hypothyroidism E03. 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 [facility] [address] [id number] [address] [place] [phone] Nov, [facility] [address] [id number] [address] [place] [phone] Oct, [facility] [address] [id number] [address] [place] [phone] Sep, Generalized anxiety disorder F41.1 ; Major depressive disorder, recurrent, moderate F33.1 and Personality disorder in adult F60.9 [facility] [address] [id number] [address] [place] [phone] Aug, [facility] [address] [facility] [id number] [address] [place] [phone] Aug, [facility] [address] [id number] [address] [place] [phone] Jul, Generalized anxiety disorder F41.1 [facility] [address] [facility] [id number] [address] [place] [phone] Jul, [facility] [address] [facility] [id number] [address] [place] [phone] Jul, Acquired hypothyroidism E03. 9 [facility] [address] [facility] [id number] [address] [place] [phone] 10 Jul, 2018 Generalized anxiety disorder F41.1 [facility] [address] [place] [id number] [place] [phone] 04 Jul, 2018 Generalized anxiety disorder F41.1 ; Major depressive disorder, recurrent, moderate F33.1 and Personality disorder in adult F60.9 [facility] [address] [place] [id number] [place] [phone] Jun, Generalized anxiety disorder F41.1 ; Major depressive disorder, recurrent, moderate F33.1 ; Primary insomnia F51.01 and Personality disorder in adult F60.9 [facility] [address] [place] [id number] [place] [phone] May, Acquired hypothyroidism E03. 9 [facility] [address] [facility] [id number] [place] [phone] May, Hypothyroidism (acquired) E0 3.9 and Gastroesophageal reflux disease without esophagitis K21.9 [facility] [address] [facility] [id number] [address] [place] [phone] Apr, [facility] [address] [facility] [id number] [address] [place] [address] Apr, Skin infection L08.9 [facility] [address] [facility] [id number] [address] [place] [address] Apr, Generalized anxiety disorder F41.1 ; Major depressive disorder, recurrent, moderate F33.1 ; Primary insomnia F51.01 and Personality disorder in adult F60.9 [facility] [address] [facility] [id number] [address] [place] [phone] March, Generalized anxiety disorder F41.1 ; Major depressive disorder, recurrent, moderate F33.1 and Personality disorder in adult F60.9 [facility] [address] [facility] [id number] [address] [place] [address] Feb, [facility] [address] [facility] [id number] [address] [place] [phone] Dec, Generalized anxiety disorder F41.1 ; Major depressive disorder, recurrent, moderate F33.1 and Personality disorder in adult F60.9 [facility] [address] [facility] [id number] [address] [place] [phone] Dec, Acute left-sided low back pa in with left-sided sciatica M54.42 [facility] [address] [facility] [id number] [address] [place] [phone] Nov, [facility] [address] [facility] [id number] [address] [place] [phone] Oct, Generalized anxiety disorder F41.1 ; Major depressive disorder, recurrent, moderate F33.1 and Personality disorder in adult F60.9 [facility] [address] [facility] [id number] [address] [place] [id number] Sep, Acquired hypothyroidism E03. 9 ; Hypercholesterolemia E78.0 ; Generalized anxiety disorder F41.1 and Drug-induced erectile dysfunction N52.2 [facility] [address] [facility] [id number] [address] [place] [phone] Sep, [facility] [address] [facility] [id number] [address] [place] [phone] Sep, Acquired hypothyroidism E03. 9 ; Hypercholesterolemia E78.0 ; Generalized anxiety disorder F41.1 and Drug-induced erectile dysfunction N52.2 [facility] [address] [facility] [id number] [address] [place] [phone] 07 Sep, 2017 Generalized anxiety disorder F41.1 ; Major depressive disorder, recurrent, moderate F33.1 and Personality disorder in adult F60.9 [facility] [address] [id number] [address] [place] [id number] Aug, Dental examination Z01.20 [facility] [address] [id number] [address] [place] [id number] Aug, Dental caries K02.9 [facility] [address] [id number] [address] [place] [address] Aug, [facility] [address] [id number] [address] [place] [address] [id number] Aug, Dental examination Z01.20 [facility] [address] [id number] [address] [place] [phone] 20 Jul, 2017 Major depressive disorder, r ecurrent, moderate F33.1 [place] [address] [place] [id number] [address] [place] [phone] Jul, Generalized anxiety disorder F41.1 ; Major depressive disorder, recurrent, moderate F33.1 and Personality disorder in adult F60.9 [facility] [address] [place] [id number] [address] [place] [phone] Jul, Generalized anxiety disorder F41.1 ; Major depressive disorder, recurrent, moderate F33.1 and Personality disorder in adult F60.9 [place] [address] [place] [id number] [address] [place] [phone] Jun, Generalized anxiety disorder F41.1 ; Major depressive disorder, recurrent, moderate F33.1 and Personality disorder in adult F60.9 [facility] [address] [facility] [id number] [address] [place] [address] Apr, Generalized anxiety disorder F41.1 ; Major depressive disorder, recurrent, moderate F33.1 and Personality disorder in adult F60.9 [facility] [address] [facility] [id number] [address] [place] [phone] March, Acquired hypothyroidism E03. 9 [facility] [address] [facility] [id number] [address] [place] [address] March, Acquired hypothyroidism E03. 9 and Left lower quadrant pain R10.32 [place] [address] [address] March, Hypercholesterolemia E78.0 ; Acquired hypothyroidism E03.9 ; Insomnia, unspecified type G47.00 ; Secondary hypertension I15.9 ; Gastroesophageal reflux disease, esophagitis presence not specified K21.9 ; Tingling in extremities R20.2 ; Environmental allergies Z91.09 ; Depression, unspecified depression type F32.9 and Left lower quadrant pain R10.[address] [address] Feb, High risk sexual behavior Z7 2.[address] [address] Feb, Major depressive disorder, r ecurrent, moderate F33.1 and Generalized anxiety disorder F41.[address] [id number] 22 Dec, 2016 Major depressive disorder, r ecurrent, moderate F33.[address] [address] 17 Dec, 2016 [place] [id number] 16 Dec, 2016 Acquired hypothyroidism E03. 9 and High risk sexual behavior Z72.[address] [address] 07 Dec, 2016 Major depressive disorder, r ecurrent, moderate F33.1 and Generalized anxiety disorder F41.[address] [address] 07 Dec, 2016 Acquired hypothyroidism E03. 9 ; Secondary hypertension I15.9 and Acute eczema L30.9 [place] [id number] Nov, Acquired hypothyroidism E03. 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 ; Hypercholesterolemia E78.0 ; Gastroesophageal reflux disease, esophagitis presence not specified K21.9 ; Anxiety F41.9 and Secondary hypertension I15.9 [place] [address] [phone] Oct, Major depressive disorder, r ecurrent, moderate F33.1 and Generalized anxiety disorder F41.1 [place] [address] [address] Aug, [place] [address] [address] Aug, Insomnia, unspecified type G 47.00 ; Acquired hypothyroidism E03.9 ; Hypercholesterolemia E78.0 and Gastroesophageal reflux disease, esophagitis presence not specified K21.9 [place] [address] [address] Jul, [address] [address] Jul, Major depressive disorder, r ecurrent, in partial remission F33.41 and Generalized anxiety disorder F41.1 [place] [id number] Jun, [address] [address] Jun, Cervical pain (neck) M54.2 a nd Cervical neuropathic pain M54.[address] [address] 14 Apr, 2016 Insomnia, unspecified type G 47.00 ; Acquired hypothyroidism E03.9 ; Hypercholesterolemia E78.0 ; 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 ; Depression, unspecified depression type F32.9 ; 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 ; Gastroesophageal reflux disease, esophagitis presence not specified K21.9 ; Anxiety F41.9 ; Secondary hypertension I15.9 and Post- nasal drainage R09.[address] [address] Apr, [facility] [address] [place] [id number] [address] [place] [phone] March, [facility] [address] [place] [id number] [address] [place] [phone] March, Unspecified hypothyroidism 2 44.9 and HTN (hypertension) 401.9 [facility] [address] [place] [id number] [address] [place] [phone] March, [facility] [address] [place] [id number] [address] [place] [address] Dec, [facility] [address] [place] [id number] [place] [phone] Nov, [facility] [address] [address] Sep, Generalized anxiety disorder F41.1 and Major depressive disorder, recurrent, in partial remission F33.41 [facility] [address] [place] [id number] [address] [place] [address] Jun, Unspecified hypothyroidism 2 44.9 ; Sciatica 724.3 ; Major depressive disorder, recurrent episode, in partial or unspecified remission 296.35 ; Combined hyperlipidemia 272.2 ; HTN (hypertension) 401.9 ; Hidrosis 780.8 ; Cat allergies 477.8 and Environmental allergies V15.09 [facility] [address] [place] [id number] [address] [place] [address] Jun, Major depressive disorder, r ecurrent episode, in partial or unspecified remission 296.35 ; Insomnia, unspecified 780.52 and Generalized anxiety disorder 300.02 [facility] [address] [place] [id number] [address] [place] [phone] May, [facility] [address] [place] [id number] [address] [place] [phone] Apr, [facility] [address] [place] [id number] [address] [place] [phone] Apr, Closed mallet fracture of di stal phalanx of ring finger 816.02 [facility] [address] [id number] [address] [place] [phone] March, Depression, major, recurrent , moderate 296.32 ; Generalized anxiety disorder 300.02 and Borderline personality disorder 301.83 [facility] [address] [id number] [address] [place] [phone] Feb, [facility] [address] [id number] [address] [place] [phone] Feb, [facility] [address] [id number] [address] [place] [phone] Jan, [facility] [address] [id number] [address] [place] [phone] Jan, [facility] [address] [id number] [address] [place] [phone] Jan, [facility] [address] [id number] [address] [place] [phone] Jan, [facility] [address] [id number] [address] [place] [phone] Jan, [facility] [address] [id number] [address] [place] [phone] Jan, [facility] [address] [id number] [address] [place] [id number] Dec, [facility] [address] [id number] [address] [place] [phone] Dec, [facility] [address] [id number] [address] [place] [address] Dec, [facility] [address] [id number] [address] [place] [address] Dec, [facility] [address] [id number] [address] [place] [id number] Nov, [facility] [address] [id number] [address] [place] [address], [place] [address] 15 Nov, 2014 [facility] [address] [id number] [address] [place] [address], [place] [address] Nov, [facility] [address] [id number] [address] [place] [address], [place] [address] Nov, [facility] [address] [id number] [address] [place] [address], [place] [address] Nov, [facility] [address] [id number] [address] [place] [address], [place] [address] Nov, [facility] [address] [id number] [address] [place] [address], [place] [address] Oct, [facility] [address] [id number] [address] [place] [address], [place] [address] Oct, [facility] [address] [id number] [address] [place] [address], [place] [address] Oct, [facility] [address] [id number] [address] [place] [address], [place] [address] Oct, [facility] [address] [id number] [address] [place] [address], [place] [id number] Oct, [facility] [address] [id number] [address] [place] [address], [place] [address] Oct, [facility] [address] [id number] [address] [place] [address], [place] [address] Sep, [facility] [address] [id number] [address] [place] [address], [place] [address] Sep, [facility] [address] [id number] [address] [place] [address], [place] [address] Sep, [facility] [address] [id number] [address] [place] [address], [place] [address] Sep, [facility] [address] [id number] [address] [place] [address], [place] [address] Aug, [facility] [address] [id number] [address] [place] [address], [place] [address] Aug, [facility] [address] [id number] [address] [place] [address], [place] [address] Apr, [facility] [address] [id number] [address] [place] [address], [place] [address] Apr, [facility] [address] [id number] [address] [place] [address], [place] [address] Apr, [facility] [address] [id number] [address] [place] [address], [place] [address] 17 Apr, 2014 [facility] [address] [id number] [address] [place] [address], [place] [address] Apr, [facility] [address] [id number] [address] [place] [address], [place] [address] Apr, [facility] [address] [id number] [address] [place] [address], [place] [id number] March, [facility] [address] [id number] [address] [place] [address], [place] [address] March, [facility] [address] [id number] [address] [place] [address], [place] [address] Dec, [facility] [address] [id number] [address] [place] [address], [place] [address] Dec, [facility] [address] [id number] [address] [place] [address], [place] [address] Sep, [facility] [address] [id number] [address] [place] [address], [place] [address] Sep, [facility] [address] [id number] [address] [place] [address], [place] [address] Aug, [facility] [address] [id number] [address] [place] [address], [place] [address] Aug, [facility] [address] [id number] [address] [place] [address], [place] [address] 09 Aug, 2012 [facility] [address] [id number] [address] [place] [address], [place] [address] Aug, [facility] [address] [id number] [address] [place] [address], [place] [address] Aug, [facility] [address] [id number] [address] [place] [address], [place] [address] Aug, 2012 [facility] [address] [id number] [address] [place] [address], [place] [address] Aug, [facility] [address] [id number] [address] [place] [address], [place] [address] Aug, [facility] [address] [id number] [address] [place] [address], [place] [id number] Aug, [facility] [address] [id number] [address] [place] [address], [place] [address] Aug, [facility] [address] [id number] [address] [place] [address], [place] [address] Jul, [facility] [address] [id number] [address] [place] [address], [place] [address] Jul, [facility] [address] [id number] [address] [place] [address], [place] [id number] 05 Jul, 2013 [facility] [address] [id number] [address] [place] [address], [place] [id number] Jun, [facility] [address] [id number] [address] [place] [address], [place] [address] May, [facility] [address] [id number] [address] [place] [address], [place] [address] May, [facility] [address] [id number] [address] [place] [address], [place] [address] May, [facility] [address] [id number] [address] [place] [address], [place] [address] Apr, [facility] [address] [id number] [address] [place] [address], [place] [address] March, [facility] [address] [id number] [address] [place] [address], [place] [address] March, [facility] [address] [id number] [address] [place] [address], [place] [id number] Feb, [facility] [address] [id number] [address] [place] [address], [place] [id number] Feb, [facility] [address] [id number] [address] [place] [address], [place] [id number] Feb, [facility] [address] [id number] [address] [place] [address], [place] [id number] Feb, [facility] [address] [id number] [address] [place] [address], [place] [id number] Jan, [facility] [address] [id number] [address] [place] [address], [place] [id number] Jan, [facility] [address] [id number] [address] [place] [address], [place] [id number] Jan, [facility] [address] [id number] [address] [place] [address], [place] [id number] Jan, [facility] [address] [id number] [address] [place] [address], [place] [id number] Dec, [facility] [address] [id number] [address] [place] [address], [place] [id number] Dec, [facility] [address] [id number] [address] [place] [address], [place] [id number] Dec, [facility] [address] [id number] [address] [place] [address], [place] [id number] Nov, [facility] [address] [id number] [address] [place] [address], [place] [id number] Nov, [facility] [address] [id number] [address] [place] [id number] Nov, [facility] [address] [id number] [address] [place] [address], [place] [id number] Nov, [facility] [address] [id number] [address] [place] [address], [place] [id number] Oct, [facility] [address] [id number] [address] [place] [address], [place] [id number] Oct, [facility] [address] [id number] [address] [place] [address], [place] [id number] Oct, [facility] [address] [id number] [address] [place] [address], [place] [id number] Oct, [facility] [address] [id number] [address] [place] [address], [place] [id number] Sep, [facility] [address] [id number] [address] [place] [address], [place] [address] Sep, [facility] [address] [id number] [address] [place] [address], [place] [id number] Sep, [facility] [address] [id number] [address] [place] [address], [place] [id number] Sep, [facility] [address] [id number] [address] [place] [address], [place] [id number] Aug, [facility] [address] [id number] [address] [place] [address], [place] [id number] Aug, [facility] [address] [id number] [address] [place] [id number] Aug, [facility] [address] [id number] [address] [place] [address], [place] [id number] Jul, [facility] [address] [id number] [address] [place] [address], [place] [id number] Jun, [facility] [address] [id number] [address] [place] [address], [place] [id number] May, [facility] [address] [id number] [address] [place] [address], [place] [id number] May, [facility] [address] [id number] [address] [place] [address], [place] [id number] May, [facility] [address] [id number] [address] [place] [address], [place] [id number] March, [facility] [address] [id number] [address] [place] [address], [place] [address] March, [facility] [address] [id number] [address] [place] [address], [place] [id number] Feb, [facility] [address] [id number] [address] [place] [address], [place] [id number] Feb, [facility] [address] [id number] [address] [place] [address], [place] [id number] Feb, [facility] [address] [id number] [address] [place] [address], [place] [id number] Feb, [facility] [address] [id number] [address] [place] [address], [place] [id number] Feb, [facility] [address] [id number] [address] [place] [address], [place] [address] Feb, [facility] [address] [id number] [address] [place] [address], [place] [id number] Feb, [facility] [address] [id number] [address] [place] [address], [place] [id number] Feb, [facility] [address] [id number] [address] [place] [address], [place] [id number] Dec, [facility] [address] [id number] [address] [place] [address], [place] [address] Nov, [facility] [address] [id number] [address] [place] [address], [place] [address] Nov, [facility] [address] [id number] [address] [place] [address], [place] [address] Nov, 2011 [facility] [address] [id number] [address] [place] [address], [place] [id number] 13 Nov, 2011 [facility] [address] [id number] [address] [place] [address], [place] [id number] 13 Nov, 2011 [facility] [address] [id number] [address] [place] [address], [place] [id number] 12 Nov, 2011 [facility] [address] [id number] [address] [place] [address], [place] [id number] 14 Oct, 2011 [facility] [address] [id number] [address] [place] [address], [place] [id number] Sep, [facility] [address] [id number] [address] [place] [address], [place] [address] Sep, [facility] [address] [id number] [address] [place] [address], [place] [address] Sep, [facility] [address] [id number] [address] [place] [id number] Sep, [facility] [address] [id number] [address] [place] [address], [place] [id number] Aug, [facility] [address] [id number] [address] [place] [address], [place] [id number] 24 Aug, 2011 [facility] [address] [id number] [address] [place] [id number] Aug, [facility] [address] [id number] [address] [place] [id number] Aug, [facility] [address] [id number] [address] [place] [address], [place] [id number] Aug, [facility] [address] [id number] [address] [place] [id number] Aug, [facility] [address] [id number] [address] [place] [address], [place] [id number] 17 Aug, 2011 [facility] [address] [id number] [address] [place] [id number] Aug, [facility] [address] [facility] [id number] [address] [place] [id number] Aug, [facility] [address] [facility] [id number] [address] [place] [id number] Jul, [facility] [address] [facility] [id number] [address] [place] [phone] May, IMMUNIZATIONS No Known Immunizations SOCIAL HISTORY Never Assessed REASON FOR VISIT [facility] PLAN OF CARE VITAL SIGNS MEDICATIONS Unknown [...]
--- OUTSIDE RECORDS SUMMARY | 2020-02-07 09:21 | XMS REPORT ---
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 [employer] Repairer Name Role Phone BRIDGETTE, XAVIER Unavailable PROBLEMS Type Condition ICD9-CM Code [id number] Code Onset Dates Condition S tatus SNOMED Code Problem Tingling in extremities R20.2 Active 40070939 Problem Generalized anxiety disorder F41.1 A ctive 97087205 Problem Personality disorder in adult F60.9 Active 57938658 Problem Hypothyroidism (acquired) E03.9 Acti ve 518734979 Problem Depression, unspecified depression type F32.9 Active 35643495 Problem Gastroesophageal reflux disease without esophagitis K21.9 Active 559823405 Problem Drug-induced erectile dysfunction N52.2 Active 084395866 Problem Major depressive disorder, recurrent, moderate F33 .1 Active 13210292 Problem Primary insomnia F51.01 Active 397 2004 Problem Acute left-sided low back pain with left-sided sciatica M54.42 Active 219051589 Problem 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 Active 362704060 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 80301319 Problem Insomnia, unspecified type G47.00 Act mary 263377649 Problem Gastroesophageal reflux disease, esophagitis pre sence not specified K21.9 Active 621457539 Problem Anxiety F41.9 Active 40236045 Problem Acquired hypothyroidism E03.9 Active 126873253 Problem Secondary hypertension I15.9 Active 47460564 Problem Acute eczema L30.9 Active 9872611 02 Problem Hypercholesterolemia E78.0 Active 77518787 Problem Environmental allergies Z91.09 Active 785588908 ALLERGIES Substance Reaction Event Type Date Status Amoxicillin vomiting Drug Allergy Sep, Active ENCOUNTERS Encounter Location Date Diagnosis [facility] [address] [facility] [id number] [address] [place] [address] Sep, Generalized anxiety disorder F41.1 ; Major depressive disorder, recurrent, moderate F33.1 and Personality disorder in adult F60.9 [facility] [address] [id number] [address] [place] [phone] 15 Aug, 2018 [facility] [address] [id number] [address] [place] [phone] Aug, [facility] [address] [id number] [address] [place] [id number] Jul, Generalized anxiety disorder F41.1 [facility] [address] [id number] [address] [place] [phone] 24 Jul, 2018 [facility] [address] [facility] [id number] [address] [place] [phone] Jul, Acquired hypothyroidism E03. 9 [facility] [address] [id number] [address] [place] [phone] Jul, Generalized anxiety disorder F41.1 [facility] [address] [id number] [address] [place] [phone] 04 Jul, 2018 Generalized anxiety disorder F41.1 ; Major depressive disorder, recurrent, moderate F33.1 and Personality disorder in adult F60.9 [facility] [address] [place] [id number] [address] [place] [phone] Jun, Generalized anxiety disorder F41.1 ; Major depressive disorder, recurrent, moderate F33.1 ; Primary insomnia F51.01 and Personality disorder in adult F60.9 [facility] [address] [id number] [address] [place] [phone] May, Acquired hypothyroidism E03. 9 [facility] [address] [id number] [address] [place] [phone] May, Hypothyroidism (acquired) E0 3.9 and Gastroesophageal reflux disease without esophagitis K21.9 [facility] [address] [id number] [address] [place] [phone] Apr, [facility] [address] [id number] [address] [place] [phone] Apr, Skin infection L08.9 [facility] [address] [id number] [address] [place] [phone] Apr, Generalized anxiety disorder F41.1 ; Major depressive disorder, recurrent, moderate F33.1 ; Primary insomnia F51.01 and Personality disorder in adult F60.9 [facility] [address] [id number] [address] [place] [phone] March, Generalized anxiety disorder F41.1 ; Major depressive disorder, recurrent, moderate F33.1 and Personality disorder in adult F60.9 [facility] [address] [id number] [address] [place] [phone] Feb, [facility] [address] [id number] [address] [place] [phone] Dec, Generalized anxiety disorder F41.1 ; Major depressive disorder, recurrent, moderate F33.1 and Personality disorder in adult F60.[address] [facility] [address] [id number] [address] [place] [phone] Dec, Acute left-sided low back pa in with left-sided sciatica M54.42 [facility] [address] [id number] [address] [place] [phone] Nov, [facility] [address] [id number] [address] [place] [phone] Oct, Generalized anxiety disorder F41.1 ; Major depressive disorder, recurrent, moderate F33.1 and Personality disorder in adult F60.9 [facility] [address] [id number] [address] [place] [phone] Sep, Acquired hypothyroidism E03. 9 ; Hypercholesterolemia E78.0 ; Generalized anxiety disorder F41.1 and Drug-induced erectile dysfunction N52.2 [facility] [address] [id number] [address] [place] [phone] Sep, [facility] [address] [id number] [address] [place] [phone] Sep, Acquired hypothyroidism E03. 9 ; Hypercholesterolemia E78.0 ; Generalized anxiety disorder F41.1 and Drug-induced erectile dysfunction N52.2 [facility] [address] [id number] [address] [place] [phone] 07 Sep, 2017 Generalized anxiety disorder F41.1 ; Major depressive disorder, recurrent, moderate F33.1 and Personality disorder in adult F60.9 [facility] [address] [id number] [address] [place] [id number] Aug, Dental examination Z01.20 [facility] [address] [id number] [address] [place] [id number] Aug, Dental caries K02.9 [facility] [address] [id number] [address] [place] [phone] Aug, [facility] [address] [id number] [address] [place] [id number] Aug, Dental examination Z01.20 [facility] [address] [id number] [address] [place] [phone] Jul, Major depressive disorder, r ecurrent, moderate F33.1 [facility] [address] [id number] [address] [place] [phone] Jul, Generalized anxiety disorder F41.1 ; Major depressive disorder, recurrent, moderate F33.1 and Personality disorder in adult F60.9 [facility] [address] [id number] [address] [place] [phone] Jul, Generalized anxiety disorder F41.1 ; Major depressive disorder, recurrent, moderate F33.1 and Personality disorder in adult F60.9 [facility] [address] [id number] [address] [place] [phone] Jun, Generalized anxiety disorder F41.1 ; Major depressive disorder, recurrent, moderate F33.1 and Personality disorder in adult F60.9 [facility] [address] [id number] [address] [place] [phone] Apr, Generalized anxiety disorder F41.1 ; Major depressive disorder, recurrent, moderate F33.1 and Personality disorder in adult F60.9 [place] [address] [address] March, Acquired hypothyroidism E03. 9 [place] [address] [address] March, Acquired hypothyroidism E03. 9 and Left lower quadrant pain R10.32 [place] [address] [address] March, Hypercholesterolemia E78.0 ; Acquired hypothyroidism E03.9 ; Insomnia, unspecified type G47.00 ; Secondary hypertension I15.9 ; Gastroesophageal reflux disease, esophagitis presence not specified K21.9 ; Tingling in extremities R20.2 ; Environmental allergies Z91.09 ; Depression, unspecified depression type F32.9 and Left lower quadrant pain R10.32 [place] [address] [address] Feb, High risk sexual behavior Z7 2.51 [place] [address] [address] Feb, Major depressive disorder, r ecurrent, moderate F33.1 and Generalized anxiety disorder F41.1 [place] [address] [address] Dec, Major depressive disorder, r ecurrent, moderate F33.1 [place] [address] [address] Dec, [place] [address] [address] 16 Dec, 2016 Acquired hypothyroidism E03. 9 and High risk sexual behavior Z72.51 [place] [address] [address] 07 Dec, 2016 Major depressive disorder, r ecurrent, moderate F33.1 and Generalized anxiety disorder F41.1 [place] [address] [place] [id number] [address] [place] [phone] Dec, Acquired hypothyroidism E03. 9 ; Secondary hypertension I15.9 and Acute eczema L30.9 [place] [address] [place] [id number] [address] [place] [phone] Nov, Acquired hypothyroidism E03. 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 ; Hypercholesterolemia E78.0 ; Gastroesophageal reflux disease, esophagitis presence not specified K21.9 ; Anxiety F41.9 and Secondary hypertension I15.9 [place] [address] [address] Oct, Major depressive disorder, r ecurrent, moderate F33.1 and Generalized anxiety disorder F41.1 [place] [address] [address] Aug, [place] [address] [address] Aug, Insomnia, unspecified type G 47.00 ; Acquired hypothyroidism E03.9 ; Hypercholesterolemia E78.0 and Gastroesophageal reflux disease, esophagitis presence not specified K21.9 [place] [address] [address] Jul, [place] [address] [address] Jul, Major depressive disorder, r ecurrent, in partial remission F33.41 and Generalized anxiety disorder F41.1 [place] [address] [address] Jun, [place] [address] [address] Jun, Cervical pain (neck) M54.2 a nd Cervical neuropathic pain M54.12 [place] [address] [address] Apr, Insomnia, unspecified type G 47.00 ; Acquired hypothyroidism E03.9 ; Hypercholesterolemia E78.0 ; 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 ; Depression, unspecified depression type F32.9 ; 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 ; Gastroesophageal reflux disease, esophagitis presence not specified K21.9 ; Anxiety F41.9 ; Secondary hypertension I15.9 and Post- nasal drainage R09.82 [place] [address] [address] Apr, [place] [address] [address] March, [place] [address] [address] March, Unspecified hypothyroidism 2 44.9 and HTN (hypertension) 401.9 [place] [address] [address] March, [place] [address] [address] Dec, [place] [address] [address] Nov, [place] [address] [address] Sep, Generalized anxiety disorder F41.1 and Major depressive disorder, recurrent, in partial remission F33.41 [place] [address] [address] Jun, Unspecified hypothyroidism 2 44.9 ; Sciatica 724.3 ; Major depressive disorder, recurrent episode, in partial or unspecified remission 296.35 ; Combined hyperlipidemia 272.2 ; HTN (hypertension) 401.9 ; Hidrosis 780.8 ; Cat allergies 477.8 and Environmental allergies V15.09 [place] [address] [place] [id number] [address] [place] [address] Jun, Major depressive disorder, r ecurrent episode, in partial or unspecified remission 296.35 ; Insomnia, unspecified 780.52 and Generalized anxiety disorder 300.02 [facility] [address] [id number] [address] [place] [phone] May, [facility] [address] [id number] [address] [place] [phone] Apr, [facility] [address] [id number] [address] [place] [address] Apr, Closed mallet fracture of di stal phalanx of ring finger 816.02 [facility] [address] [id number] [address] [place] [address] March, Depression, major, recurrent , moderate 296.32 ; Generalized anxiety disorder 300.02 and Borderline personality disorder 301.83 [facility] [address] [id number] [address] [place] [phone] Feb, [facility] [address] [id number] [address] [place] [phone] Feb, [facility] [address] [id number] [address] [place] [phone] Jan, [facility] [address] [id number] [address] [place] [phone] Jan, [facility] [address] [id number] [address] [place] [phone] Jan, [facility] [address] [id number] [address] [place] [phone] Jan, [facility] [address] [id number] [address] [place] [phone] Jan, [facility] [address] [id number] [address] [place] [phone] Jan, [facility] [address] [id number] [address] [place] [phone] Dec, [facility] [address] [id number] [address] [place] [address], [place] [address] Dec, [facility] [address] [id number] [address] [place] [address], [place] [address] Dec, [facility] [address] [id number] [address] [place] [address], [place] [address] Dec, [facility] [address] [id number] [address] [place] [address], [place] [address] Nov, [facility] [address] [id number] [address] [place] [address], [place] [address] Nov, [facility] [address] [id number] [address] [place] [address], [place] [address] Nov, [facility] [address] [id number] [address] [place] [address], [place] [address] Nov, [facility] [address] [id number] [address] [place] [address], [place] [address] Nov, [facility] [address] [id number] [address] [place] [address], [place] [address] Nov, [facility] [address] [id number] [address] [place] [address], [place] [address] Oct, [facility] [address] [id number] [address] [place] [address], [place] [address] Oct, [facility] [address] [id number] [address] [place] [address], [place] [address] Oct, [facility] [address] [id number] [address] [place] [address], [place] [address] Oct, [facility] [address] [id number] [address] [place] [address], [place] [address] Oct, [facility] [address] [id number] [address] [place] [address], [place] [address] Oct, [facility] [address] [id number] [address] [place] [address], [place] [address] Sep, [facility] [address] [id number] [address] [place] [address], [place] [address] Sep, [facility] [address] [id number] [address] [place] [address], [place] [address] Sep, [facility] [address] [id number] [address] [place] [address], [place] [address] Sep, [facility] [address] [id number] [address] [place] [address], [place] [address] Aug, [facility] [address] [id number] [address] [place] [address], [place] [address] Aug, [facility] [address] [id number] [address] [place] [address], [place] [address] Apr, [facility] [address] [id number] [address] [place] [address], [place] [address] Apr, [facility] [address] [id number] [address] [place] [address], [place] [address] Apr, [facility] [address] [id number] [address] [place] [address], [place] [address] Apr, [facility] [address] [id number] [address] [place] [address], [place] [address] Apr, [facility] [address] [id number] [address] [place] [address], [place] [address] Apr, [facility] [address] [id number] [address] [place] [phone] March, [facility] [address] [id number] [address] [place] [address], [place] [address] March, [facility] [address] [id number] [address] [place] [address], [place] [address] Dec, [facility] [address] [id number] [address] [place] [phone] Dec, [facility] [address] [id number] [address] [place] [id number] 08 Sep, 2013 [facility] [address] [id number] [address] [place] [address], [place] [address] Sep, [facility] [address] [id number] [address] [place] [phone] Aug, [facility] [address] [id number] [address] [place] [address] Aug, [facility] [address] [id number] [address] [place] [phone] Aug, [facility] [address] [id number] [address] [place] [id number] Aug, [facility] [address] [id number] [address] [place] [phone] Aug, [facility] [address] [id number] [address] [place] [id number] Aug, [facility] [address] [id number] [address] [place] [phone] Aug, [facility] [address] [id number] [address] [place] [phone] Aug, [facility] [address] [id number] [address] [place] [phone] Aug, [facility] [address] [id number] [address] [place] [phone] Aug, [facility] [address] [id number] [address] [place] [id number] 27 Jul, 2013 [facility] [address] [id number] [address] [place] [id number] 19 Jul, 2013 [facility] [address] [id number] [address] [place] [id number] 05 Jul, 2013 [facility] [address] [id number] [address] [place] [phone] Jun, [facility] [address] [id number] [address] [place] [address], [place] [address] May, [facility] [address] [id number] [address] [place] [address], [place] [address] May, [facility] [address] [id number] [address] [place] [address], [place] [address] May, [facility] [address] [id number] [address] [place] [address], [place] [address] Apr, [facility] [address] [id number] [address] [place] [address], [place] [address] March, [facility] [address] [id number] [address] [place] [address], [place] [address] March, [facility] [address] [id number] [address] [place] [address], [place] [id number] Feb, [facility] [address] [id number] [address] [place] [address], [place] [address] Feb, [facility] [address] [id number] [address] [place] [address], [place] [address] Feb, [facility] [address] [id number] [address] [place] [address], [place] [address] Feb, [facility] [address] [id number] [address] [place] [address], [place] [address] Jan, [facility] [address] [id number] [address] [place] [address], [place] [address] Jan, [facility] [address] [id number] [address] [place] [address], [place] [address] Jan, [facility] [address] [id number] [address] [place] [address], [place] [address] Jan, [facility] [address] [id number] [address] [place] [address], [place] [address] Dec, [facility] [address] [id number] [address] [place] [address], [place] [address] Dec, [facility] [address] [id number] [address] [place] [address], [place] [address] Dec, [facility] [address] [id number] [address] [place] [address], [place] [address] Nov, [facility] [address] [id number] [address] [place] [address], [place] [address] Nov, [facility] [address] [id number] [address] [place] [address], [place] [address] Nov, [facility] [address] [id number] [address] [place] [address], [place] [address] Nov, [facility] [address] [id number] [address] [place] [address], [place] [id number] Oct, [facility] [address] [id number] [address] [place] [address], [place] [address] Oct, [facility] [address] [id number] [address] [place] [address], [place] [id number] Oct, [facility] [address] [id number] [address] [place] [address], [place] [id number] Oct, [facility] [address] [id number] [address] [place] [address], [place] [id number] Sep, [facility] [address] [id number] [address] [place] [address], [place] [id number] Sep, [facility] [address] [id number] [address] [place] [address], [place] [id number] Sep, [facility] [address] [id number] [address] [place] [address], [place] [id number] Sep, [facility] [address] [id number] [address] [place] [address], [place] [id number] Aug, [facility] [address] [id number] [address] [place] [address], [place] [id number] Aug, [facility] [address] [id number] [address] [place] [address], [place] [id number] Aug, [facility] [address] [id number] [address] [place] [address], [place] [id number] Jul, [facility] [address] [id number] [address] [place] [address], [place] [id number] Jun, [facility] [address] [id number] [address] [place] [address], [place] [id number] May, [facility] [address] [id number] [address] [place] [address], [place] [id number] May, [facility] [address] [id number] [address] [place] [address], [place] [id number] May, [facility] [address] [id number] [address] [place] [address], [place] [id number] March, [facility] [address] [id number] [address] [place] [address], [place] [id number] March, [facility] [address] [id number] [address] [place] [address], [place] [id number] Feb, [facility] [address] [id number] [address] [place] [address], [place] [id number] Feb, [facility] [address] [id number] [place] [address], [place] [id number] Feb, [facility] [address] [id number] [address] [place] [address], [place] [id number] [address], [address] [facility] [address] [id number] [address] [place] [address], [place] [id number] 16 Feb, 2012 [facility] [address] [id number] [address] [place] [address], [place] [id number] Feb, [facility] [address] [id number] [address] [place] [address], [place] [id number] Feb, [facility] [address] [id number] [address] [place] [address], [place] [id number] Feb, [facility] [address] [id number] [address] [place] [address], [place] [id number] Dec, [facility] [address] [id number] [address] [place] [address], [place] [id number] Nov, [facility] [address] [id number] [address] [place] [address], [place] [id number] Nov, [facility] [address] [id number] [address] [place] [address], [place] [id number] Nov, [facility] [address] [id number] [address] [place] [address], [place] [id number] Nov, [facility] [address] [id number] [address] [place] [address], [place] [id number] Nov, [facility] [address] [id number] [address] [place] [address], [place] [id number] Nov, [facility] [address] [id number] [address] [place] [id number] Oct, [facility] [address] [id number] [address] [place] [address], [place] [id number] Sep, [facility] [address] [id number] [address] [place] [id number] Sep, [facility] [address] [id number] [address] [place] [phone] Sep, [facility] [address] [id number] [address] [place] [phone] Sep, [facility] [address] [id number] [address] [place] [address], [place] [id number] Aug, [facility] [address] [id number] [address] [place] [id number] Aug, [facility] [address] [id number] [address] [place] [id number] Aug, [facility] [address] [id number] [address] [place] [id number] Aug, [facility] [address] [id number] [address] [place] [phone] Aug, [facility] [address] [id number] [address] [place] [id number] Aug, [facility] [address] [id number] [address] [place] [id number] Aug, [facility] [address] [id number] [address] [place] [id number] Aug, [facility] [address] [id number] [address] [place] [id number] Aug, [facility] [address] [id number] [address] [place] [id number] Jul, [facility] [address] [id number] [address] [place] [id number] May, IMMUNIZATIONS No Known Immunizations SOCIAL HISTORY Never Assessed REASON FOR VISIT f/sultana willis ma PLAN OF CARE Activity Details Follow Up 2 Months Reason: f/u VITAL SIGNS Height 68 in 2018-10-01 Weight 197.8 lbs 2018-10-01 Heart Rate 106 bpm 2018-10-01 Respiratory Rate 20 2018-10-01 BMI 30.07 kg/m2 2018-10-01 Blood pressure systolic 116 mmHg 2018-10-01 Blood pressure diastolic 92 mmHg 2018-10-01 MEDICATIONS Medication Instructions Dosage Frequency Start Date End Date Duration S tatus Cialis 20 mg Orally Once a day 1 tablet 24h Sep, Active Lisinopril 20 mg Orally Once a day 1 tablet 24h 30 Active Fish Oil 1200 MG Orally Once a day 2 capsule 24h Active Topiramate 100 mg Orally Once a day 1 tablet 24h Active Cymbalta 60 mg Orally twice a day 1 capsule 12h March, Active Rexulti 1 MG Orally Once a day 1 tablet 24h Active Multivital Active Protonix 40 mg Orally Once a day, voucher 1st fill. 1 tablet Active Levothyroxine Sodium 125 MCG Orally Once a day 1 tablet 24h 90 days Active Simethicone 80 MG Orally Four times a day 1 tablet after m eals and at bedtime as needed 6h May, Not-Taking Lipitor 10 mg Orally Once a day 1 tablet 24h 24 Jan, 2015 Active Pantoprazole Sodium 40 MG TAKE ONE TABLET BY MOUTH ONCE DAILY 30 Not-Taking Bactrim DS 800-160 MG Orally Twice a day 1 tablet 12h 5 days Not-Taking RESULTS No Results PROCEDURES No Known procedures [...]
--- OUTSIDE RECORDS SUMMARY | 2020-02-07 09:21 | XMS REPORT ---
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 Active 444407838 Problem Hypercholesterolemia E78.0 Active 93020529 Problem Secondary hypertension I15.9 Active 12079981 Problem Acquired hypothyroidism E03.9 Active 339802928 Problem Anxiety F41.9 Active 95628807 Problem Tingling in extremities R20.2 Active 59669367 Problem Personality disorder in adult F60.9 Active 70209194 Problem Generalized anxiety disorder F41.1 A ctive 57151903 Problem Gastroesophageal reflux disease without esophagitis K21.9 Active 944846297 Problem Environmental allergies Z91.09 Active 511501441 Problem Hypothyroidism (acquired) E03.9 Acti ve 682592724 Problem Acute eczema L30.9 Active 3916084 02 Problem Depression, unspecified depression type F32.9 Active 10931961 Problem Major depressive disorder, recurrent, moderate F33 .1 Active 10146397 Problem Drug-induced erectile dysfunction N52.2 Active 639070985 Problem Acute left-sided low back pain with left-sided sciatica M54.42 Active 443037601 Problem Primary insomnia F51.01 Active 397 2004 ALLERGIES No Information ENCOUNTERS Encounter Location Date Diagnosis [facility] [address] [facility] [id number] [address] [place] [id number] March, [facility] [address] [facility] [id number] [address] [place] [address] Feb, [facility] [address] [id number] [address] [place] [address] Jan, [facility] [address] [id number] [address] [place] [address] Dec, [facility] [address] [facility] [id number] [address] [place] [address] Dec, Acquired hypothyroidism E03. 9 and Other usp (current) drug therapy Z79.899 [facility] [address] [id number] [address] [place] [id number] 15 Dec, 2018 Acquired hypothyroidism E03. 9 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 [address] [facility] [id number] [address] [place] [id number] Nov, [facility] [address] [id number] [address] [place] [phone] Oct, [facility] [address] [facility] [id number] [address] [place] [address] Sep, Generalized anxiety disorder F41.1 ; Major depressive disorder, recurrent, moderate F33.1 and Personality disorder in adult F60.9 [facility] [address] [facility] [id number] [address] [place] [address] Aug, [facility] [address] [id number] [address] [place] [phone] Aug, [facility] [address] [id number] [address] [place] [phone] Jul, Generalized anxiety disorder F41.1 [facility] [address] [id number] [address] [place] [id number] 24 Jul, 2018 [facility] [address] [facility] [id number] [address] [place] [id number] 12 Jul, 2018 Acquired hypothyroidism E03. 9 [facility] [address] [facility] [id number] [address] [place] [id number] 10 Jul, 2018 Generalized anxiety disorder F41.1 [facility] [address] [facility] [id number] [address] [place] [id number] 04 Jul, 2018 Generalized anxiety disorder F41.1 ; Major depressive disorder, recurrent, moderate F33.1 and Personality disorder in adult F60.9 [facility] [address] [facility] [id number] [address] [place] [address] Jun, Generalized anxiety disorder F41.1 ; Major depressive disorder, recurrent, moderate F33.1 ; Primary insomnia F51.01 and Personality disorder in adult F60.9 [facility] [address] [place] [id number] [address] [place] [address] May, Acquired hypothyroidism E03. 9 [facility] [address] [place] [id number] [address] [place] [address] May, Hypothyroidism (acquired) E0 3.9 and Gastroesophageal reflux disease without esophagitis K21.9 [facility] [address] [facility] [id number] [address] [place] [address] Apr, [facility] [address] [facility] [id number] [address] [place] [address] Apr, Skin infection L08.9 [facility] [address] [facility] [id number] [address] [place] [address] 05 Apr, 2018 Generalized anxiety disorder F41.1 ; Major depressive disorder, recurrent, moderate F33.1 ; Primary insomnia F51.01 and Personality disorder in adult F60.9 [facility] [address] [place] [id number] [address] [place] [phone] March, Generalized anxiety disorder F41.1 ; Major depressive disorder, recurrent, moderate F33.1 and Personality disorder in adult F60.9 [facility] [address] [facility] [id number] [address] [place] [phone] Feb, [place] [address] [id number] [address] [place] [address] Dec, Generalized anxiety disorder F41.1 ; Major depressive disorder, recurrent, moderate F33.1 and Personality disorder in adult F60.9 [facility] [address] [id number] [address] [place] [id number] 06 Dec, 2017 Acute left-sided low back pa in with left-sided sciatica M54.42 [facility] [address] [id number] [address] [place] [phone] Nov, [facility] [address] [facility] [id number] [address] [place] [address] Oct, Generalized anxiety disorder F41.1 ; Major depressive disorder, recurrent, moderate F33.1 and Personality disorder in adult F60.9 [facility] [address] [facility] [id number] [address] [place] [address] Sep, Acquired hypothyroidism E03. 9 ; Hypercholesterolemia E78.0 ; Generalized anxiety disorder F41.1 and Drug-induced erectile dysfunction N52.2 [facility] [address] [facility] [id number] [address] [place] [phone] Sep, [facility] [address] [facility] [id number] [address] [place] [address] Sep, Acquired hypothyroidism E03. 9 ; Hypercholesterolemia E78.0 ; Generalized anxiety disorder F41.1 and Drug-induced erectile dysfunction N52.2 [facility] [address] [facility] [id number] [address] [place] [address] Sep, Generalized anxiety disorder F41.1 ; Major depressive disorder, recurrent, moderate F33.1 and Personality disorder in adult F60.9 [facility] [address] [id number] [address] [place] [id number] Aug, Dental examination Z01.20 [facility] [address] [id number] [address] [place] [address] [id number] Aug, Dental caries K02.9 [facility] [id number] [place] [id number] 13 Aug, 2017 [facility] [address] [id number] [address] [place] [address] [id number] 10 Aug, 2017 Dental examination Z01.20 [place] [id number] [place] [address] 20 Jul, 2017 Major depressive disorder, r ecurrent, moderate F33.1 [place] [address] [id number] 19 Jul, 2017 Generalized anxiety disorder F41.1 ; Major depressive disorder, recurrent, moderate F33.1 and Personality disorder in adult F60.9 [place] [address] [address] 08 Jul, 2017 Generalized anxiety disorder F41.1 ; Major depressive disorder, recurrent, moderate F33.1 and Personality disorder in adult F60.9 [place] [address] [address] Jun, Generalized anxiety disorder F41.1 ; Major depressive disorder, recurrent, moderate F33.1 and Personality disorder in adult F60.9 [place] [address] [address] Apr, Generalized anxiety disorder F41.1 ; Major depressive disorder, recurrent, moderate F33.1 and Personality disorder in adult F60.9 [place] [address] [place] [id number] [address] [place] [address] March, Acquired hypothyroidism E03. 9 [place] [address] [place] [id number] [address] [place] [address] March, Acquired hypothyroidism E03. 9 and Left lower quadrant pain R10.32 [place] [address] [place] [id number] [address] [place] [address] March, Hypercholesterolemia E78.0 ; Acquired hypothyroidism E03.9 ; Insomnia, unspecified type G47.00 ; Secondary hypertension I15.9 ; Gastroesophageal reflux disease, esophagitis presence not specified K21.9 ; Tingling in extremities R20.2 ; Environmental allergies Z91.09 ; Depression, unspecified depression type F32.9 and Left lower quadrant pain R10.32 [place] [address] [place] [id number] [address] [place] [id number] Feb, High risk sexual behavior Z7 2.51 [place] [address] [address] Feb, Major depressive disorder, r ecurrent, moderate F33.1 and Generalized anxiety disorder F41.1 [place] [address] [place] [id number] [place] [phone] 22 Dec, 2016 Major depressive disorder, r ecurrent, moderate F33.1 [place] [address] [place] [id number] [place] [address] 17 Dec, 2016 [place] [address] [id number] 16 Dec, 2016 Acquired hypothyroidism E03. 9 and High risk sexual behavior Z72.51 [place] [address] [place] [id number] [place] [address] 07 Dec, 2016 Major depressive disorder, r ecurrent, moderate F33.1 and Generalized anxiety disorder F41.1 [place] [address] [id number] 07 Dec, 2016 Acquired hypothyroidism E03. 9 ; Secondary hypertension I15.9 and Acute eczema L30.9 [place] [address] [place] [id number] [address] [place] [address] Nov, Acquired hypothyroidism E03. 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 ; Hypercholesterolemia E78.0 ; Gastroesophageal reflux disease, esophagitis presence not specified K21.9 ; Anxiety F41.9 and Secondary hypertension I15.9 [place] [address] [place] [id number] [address] [place] [address] Oct, Major depressive disorder, r ecurrent, moderate F33.1 and Generalized anxiety disorder F41.1 [place] [address] [place] [id number] [place] [address] Aug, [place] [address] [place] [id number] [address] [place] [address] Aug, Insomnia, unspecified type G 47.00 ; Acquired hypothyroidism E03.9 ; Hypercholesterolemia E78.0 and Gastroesophageal reflux disease, esophagitis presence not specified K21.9 [place] [address] [place] [id number] [place] [address] Jul, [place] [address] [address] Jul, Major depressive disorder, r ecurrent, in partial remission F33.41 and Generalized anxiety disorder F41.1 [place] [address] [address] Jun, [place] [address] [address] Jun, Cervical pain (neck) M54.2 a nd Cervical neuropathic pain M54.12 [place] [address] [address] Apr, Insomnia, unspecified type G 47.00 ; Acquired hypothyroidism E03.9 ; Hypercholesterolemia E78.0 ; 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 ; Depression, unspecified depression type F32.9 ; 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 [address] [address] Dec, [place] [address] [address] Nov, [place] [address] [address] Sep, Generalized anxiety disorder F41.1 and Major depressive disorder, recurrent, in partial remission F33.41 [place] [address] [address] Jun, Unspecified hypothyroidism 2 44.9 ; Sciatica 724.3 ; Major depressive disorder, recurrent episode, in partial or unspecified remission 296.35 ; Combined hyperlipidemia 272.2 ; HTN (hypertension) 401.9 ; Hidrosis 780.8 ; Cat allergies 477.8 and Environmental allergies V15.09 [place] [address] [address] Jun, Major depressive disorder, r ecurrent episode, in partial or unspecified remission 296.35 ; Insomnia, unspecified 780.52 and Generalized anxiety disorder 300.02 [place] [address] [address] May, [place] [address] [address] Apr, [place] [address] [address] Apr, Closed mallet fracture of di stal phalanx of ring finger 816.02 [place] [address] [address] March, Depression, major, recurrent , moderate 296.32 ; Generalized anxiety disorder 300.02 and Borderline personality disorder 301.83 [facility] [address] [id number] [address] [place] [address] 14 Feb, 2015 [facility] [address] [id number] [address] [place] [address] Feb, [facility] [address] [id number] [address] [place] [address] Jan, [facility] [address] [id number] [address] [place] [address] Jan, [facility] [address] [id number] [address] [place] [address] Jan, [facility] [address] [id number] [address] [place] [address] Jan, [facility] [address] [id number] [address] [place] [address] Jan, [facility] [address] [id number] [address] [place] [address] Jan, [facility] [address] [id number] [address] [place] [address] Dec, [facility] [address] [id number] [address] [place] [address] Dec, [facility] [address] [id number] [address] [place] [address] Dec, [facility] [address] [id number] [address] [place] [address] Dec, [facility] [address] [id number] [address] [place] [address] Nov, [facility] [address] [id number] [address] [place] [address] Nov, [facility] [address] [id number] [address] [place] [address] Nov, [facility] [address] [id number] [address] [place] [address], [place] [address] Nov, [facility] [address] [id number] [address] [place] [address], [place] [address] Nov, [facility] [address] [id number] [address] [place] [address], [place] [address] Nov, [facility] [address] [id number] [address] [place] [address], [place] [address] Oct, [facility] [address] [id number] [address] [place] [address], [place] [address] Oct, [facility] [address] [id number] [address] [place] [address], [place] [address] Oct, [facility] [address] [id number] [address] [place] [address], [place] [address] Oct, [facility] [address] [id number] [address] [place] [address], [place] [address] Oct, [facility] [address] [id number] [address] [place] [address], [place] [address] Oct, [facility] [address] [id number] [address] [place] [address], [place] [address] Sep, [facility] [address] [id number] [address] [place] [address], [place] [address] Sep, [facility] [address] [id number] [address] [place] [address], [place] [address] Sep, [facility] [address] [id number] [address] [place] [address], [place] [address] Sep, [facility] [address] [id number] [address] [place] [address], [place] [address] Aug, [facility] [address] [id number] [address] [place] [address], [place] [address] Aug, [facility] [address] [id number] [address] [place] [address], [place] [address] Apr, [facility] [address] [id number] [address] [place] [address], [place] [address] Apr, [facility] [address] [id number] [address] [place] [address], [place] [address] Apr, [facility] [address] [id number] [address] [place] [address], [place] [address] Apr, [facility] [address] [id number] [address] [place] [address], [place] [address] Apr, [facility] [address] [id number] [address] [place] [address], [place] [address] Apr, [facility] [address] [id number] [address] [place] [address], [place] [address] March, [facility] [address] [id number] [address] [place] [address], [place] [address] March, [facility] [address] [id number] [address] [place] [address], [place] [address] Dec, [facility] [address] [id number] [address] [place] [address], [place] [address] Dec, [facility] [address] [id number] [address] [place] [address], [place] [address] Sep, [facility] [address] [id number] [address] [place] [address], [place] [address] Sep, [facility] [address] [id number] [address] [place] [address], [place] [address] Aug, [facility] [address] [id number] [address] [place] [address], [place] [address] Aug, [facility] [address] [id number] [address] [place] [address], [place] [address] Aug, [facility] [address] [id number] [address] [place] [address], [place] [address] Aug, [facility] [address] [id number] [address] [place] [address], [place] [address] 09 Aug, 2013 [facility] [address] [id number] [address] [place] [address], [place] [address] Aug, [facility] [address] [id number] [address] [place] [address], [place] [address] Aug, [facility] [address] [id number] [address] [place] [address], [place] [address] Aug, [facility] [address] [id number] [address] [place] [address], [place] [address] Aug, [facility] [address] [id number] [address] [place] [address], [place] [address] Aug, [facility] [address] [id number] [address] [place] [address], [place] [address] Jul, [facility] [address] [id number] [address] [place] [address], [place] [address] Jul, [facility] [address] [id number] [address] [place] [address], [place] [address] 05 Jul, 2013 [facility] [address] [id number] [address] [place] [address], [place] [address] Jun, [facility] [address] [id number] [address] [place] [address], [place] [address] May, [facility] [address] [id number] [address] [place] [address], [place] [address] May, [facility] [address] [id number] [address] [place] [address], [place] [address] May, [facility] [address] [id number] [address] [place] [address], [place] [address] Apr, [facility] [address] [id number] [address] [place] [address], [place] [address] March, [facility] [address] [id number] [address] [place] [address], [place] [address] March, [facility] [address] [id number] [address] [place] [address], [place] [address] Feb, [facility] [address] [id number] [address] [place] [address], [place] [address] Feb, [facility] [address] [id number] [address] [place] [address], [place] [address] Feb, [facility] [address] [id number] [address] [place] [address], [place] [address] Feb, [facility] [address] [id number] [address] [place] [address], [place] [address] Jan, [facility] [address] [id number] [address] [place] [address], [place] [address] Jan, [facility] [address] [id number] [address] [place] [address], [place] [address] Jan, [facility] [address] [id number] [address] [place] [address], [place] [address] Jan, [facility] [address] [id number] [address] [place] [address], [place] [address] Dec, [facility] [address] [id number] [address] [place] [address], [place] [address] Dec, [facility] [address] [id number] [address] [place] [address], [place] [address] Dec, [facility] [address] [id number] [address] [place] [address], [place] [address] Nov, [facility] [address] [id number] [address] [place] [address], [place] [address] Nov, [facility] [address] [id number] [address] [place] [address], [place] [address] Nov, [facility] [address] [id number] [address] [place] [address], [place] [address] Nov, [facility] [address] [id number] [address] [place] [address], [place] [address] Oct, [facility] [address] [id number] [address] [place] [address], [place] [address] Oct, [facility] [address] [id number] [address] [place] [address], [place] [address] Oct, [facility] [address] [id number] [address] [place] [address], [place] [address] Oct, [facility] [address] [id number] [address] [place] [address], [place] [address] Sep, [facility] [address] [id number] [address] [place] [address], [place] [address] Sep, [facility] [address] [id number] [address] [place] [address], [place] [address] Sep, [facility] [address] [id number] [address] [place] [address], [place] [address] Sep, [facility] [address] [id number] [address] [place] [address], [place] [address] Aug, [facility] [address] [id number] [address] [place] [address], [place] [address] Aug, [facility] [address] [id number] [address] [place] [address], [place] [address] Aug, [facility] [address] [id number] [address] [place] [address], [place] [address] Jul, [facility] [address] [id number] [address] [place] [address], [place] [address] Jun, [facility] [address] [id number] [address] [place] [address], [place] [address] May, [facility] [address] [id number] [address] [place] [address], [place] [address] May, [facility] [address] [id number] [address] [place] [address], [place] [address] May, [facility] [address] [id number] [address] [place] [address], [place] [address] March, [facility] [address] [id number] [address] [place] [address], [place] [address] March, [facility] [address] [id number] [address] [place] [address], [place] [address] Feb, [facility] [address] [id number] [address] [place] [address], [place] [address] Feb, [facility] [address] [id number] [address] [place] [address], [place] [address] Feb, [facility] [address] [id number] [address] [place] [address], [place] [address] Feb, [facility] [address] [id number] [address] [place] [address], [place] [address] Feb, [facility] [address] [id number] [address] [place] [address], [place] [address] Feb, [facility] [address] [id number] [address] [place] [address], [place] [address] Feb, [facility] [address] [id number] [address] [place] [address], [place] [address] Feb, [facility] [address] [id number] [address] [place] [address], [place] [address] Dec, [facility] [address] [id number] [address] [place] [address], [place] [address] Nov, [facility] [address] [id number] [address] [place] [address], [place] [address] Nov, [facility] [address] [id number] [address] [place] [address], [place] [address] Nov, [facility] [address] [id number] [address] [place] [address], [place] [address] Nov, [facility] [address] [id number] [address] [place] [id number] 13 Nov, 2011 [facility] [address] [id number] [address] [place] [address], [place] [address] Nov, [facility] [address] [id number] [address] [place] [address] Oct, [facility] [address] [id number] [address] [place] [address], [place] [address] Sep, [facility] [address] [id number] [address] [place] [address] Sep, [facility] [address] [id number] [address] [place] [address], [place] [address] Sep, [facility] [address] [id number] [address] [place] [address], [place] [address] Sep, [facility] [address] [id number] [address] [place] [address], [place] [address] Aug, [facility] [address] [id number] [address] [place] [address], [place] [address] 24 Aug, 2011 [facility] [address] [id number] [address] [place] [address] Aug, [facility] [address] [id number] [address] [place] [address] Aug, [facility] [address] [id number] [address] [place] [address] Aug, [facility] [address] [id number] [address] [place] [id number] 20 Aug, 2011 [facility] [address] [id number] [address] [place] [address], [place] [address] 17 Aug, 2011 [facility] [address] [id number] [address] [place] [id number] 10 Aug, 2011 [facility] [address] [id number] [address] [place] [address] 10 Aug, 2011 [facility] [address] [id number] [place] [address] Jul, [facility] [address] [facility] [id number] [address] [place] [address] May, IMMUNIZATIONS No Known Immunizations SOCIAL HISTORY Never Assessed REASON FOR VISIT EMR-[facility] [place] PLAN OF CARE VITAL SIGNS MEDICATIONS Unknown [...]
--- OUTSIDE RECORDS SUMMARY | 2020-02-07 09:21 | XMS REPORT ---
Author Author BRIDGETTEBritton Cruz [facility] Address [address] [place] [address] Care Team Providers Care Steel Manager Name Role Phone BRIDGETTE, XAVIER Unavailable PROBLEMS Type Condition ICD9-CM Code MOK22-HF Code Onset Dates Condition S tatus SNOMED Code Problem Tingling in extremities R20.2 Active 47806106 Problem Generalized anxiety disorder F41.1 A ctive 10666682 Problem Personality disorder in adult F60.9 Active 45677672 Problem Hypothyroidism (acquired) E03.9 Acti ve 370315145 Problem Depression, unspecified depression type F32.9 Active 48600647 Problem Gastroesophageal reflux disease without esophagitis K21.9 Active 573510644 Problem Drug-induced erectile dysfunction N52.2 Active 885664328 Problem Major depressive disorder, recurrent, moderate F33 .1 Active 78406238 Problem Primary insomnia F51.01 Active 397 2004 Problem Acute left-sided low back pain with left-sided sciatica M54.42 Active 823672463 Problem 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 Active 285184958 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 50008609 Problem Insomnia, unspecified type G47.00 Act mary 919570675 Problem Gastroesophageal reflux disease, esophagitis pre sence not specified K21.9 Active 336583678 Problem Anxiety F41.9 Active 06968520 Problem Acquired hypothyroidism E03.9 Active 662538133 Problem Secondary hypertension I15.9 Active 14258710 Problem Acute eczema L30.9 Active 1299081 02 Problem Hypercholesterolemia E78.0 Active 19939688 Problem Environmental allergies Z91.09 Active 362263837 ALLERGIES No Information ENCOUNTERS Encounter Location Date Diagnosis [facility] [address] [facility] [id number] [address] [place] [phone] Oct, [facility] [address] [facility] [id number] [address] [place] [address] Sep, Generalized anxiety disorder F41.1 ; Major depressive disorder, recurrent, moderate F33.1 and Personality disorder in adult F60.9 [facility] [address] [facility] [id number] [address] [place] [phone] 15 Aug, 2018 [facility] [address] [facility] [id number] [address] [place] [address] Aug, [facility] [address] [facility] [id number] [address] [place] [phone] Jul, Generalized anxiety disorder F41.1 [facility] [address] [facility] [id number] [address] [place] [id number] 24 Jul, 2018 [facility] [address] [facility] [id number] [address] [place] [phone] Jul, Acquired hypothyroidism E03. 9 [facility] [address] [place] [id number] [address] [place] [phone] Jul, Generalized anxiety disorder F41.1 [facility] [address] [place] [id number] [address] [place] [id number] 04 Jul, 2018 Generalized anxiety disorder F41.1 ; Major depressive disorder, recurrent, moderate F33.1 and Personality disorder in adult F60.9 [facility] [address] [facility] [id number] [address] [place] [phone] Jun, Generalized anxiety disorder F41.1 ; Major depressive disorder, recurrent, moderate F33.1 ; Primary insomnia F51.01 and Personality disorder in adult F60.9 [facility] [address] [facility] [id number] [address] [place] [address] May, Acquired hypothyroidism E03. 9 [facility] [address] [facility] [id number] [address] [place] [address] May, Hypothyroidism (acquired) E0 3.9 and Gastroesophageal reflux disease without esophagitis K21.9 [facility] [address] [place] [id number] [address] [place] [id number] Apr, [facility] [address] [facility] [id number] [address] [place] [id number] 11 Apr, 2018 Skin infection L08.9 [facility] [address] [facility] [id number] [address] [place] [phone] Apr, Generalized anxiety disorder F41.1 ; Major depressive disorder, recurrent, moderate F33.1 ; Primary insomnia F51.01 and Personality disorder in adult F60.9 [facility] [address] [facility] [id number] [address] [place] [phone] March, Generalized anxiety disorder F41.1 ; Major depressive disorder, recurrent, moderate F33.1 and Personality disorder in adult F60.9 [facility] [address] [facility] [id number] [address] [place] [address] Feb, [facility] [address] [facility] [id number] [address] [place] [phone] 06 Dec, 2017 Generalized anxiety disorder F41.1 ; Major depressive disorder, recurrent, moderate F33.1 and Personality disorder in adult F60.9 [facility] [address] [facility] [id number] [address] [place] [phone] 06 Dec, 2017 Acute left-sided low back pa in with left-sided sciatica M54.42 [facility] [address] [facility] [id number] [address] [place] [address] Nov, [facility] [address] [place] [id number] [address] [place] [phone] Oct, Generalized anxiety disorder F41.1 ; Major depressive disorder, recurrent, moderate F33.1 and Personality disorder in adult F60.9 [facility] [address] [facility] [id number] [address] [place] [address] Sep, Acquired hypothyroidism E03. 9 ; Hypercholesterolemia E78.0 ; Generalized anxiety disorder F41.1 and Drug-induced erectile dysfunction N52.2 [facility] [address] [facility] [id number] [address] [place] [address] Sep, [facility] [address] [id number] [address] [place] [phone] 17 Sep, 2017 Acquired hypothyroidism E03. 9 ; Hypercholesterolemia E78.0 ; Generalized anxiety disorder F41.1 and Drug-induced erectile dysfunction N52.2 [facility] [address] [id number] [address] [place] [phone] 07 Sep, 2017 Generalized anxiety disorder F41.1 ; Major depressive disorder, recurrent, moderate F33.1 and Personality disorder in adult F60.9 [facility] [address] [id number] [address] [place] [id number] Aug, Dental examination Z01.20 [facility] [address] [id number] [address] [place] [id number] Aug, Dental caries K02.9 [facility] [address] [id number] [address] [place] [phone] Aug, [facility] [address] [id number] [address] [place] [id number] Aug, Dental examination Z01.20 [facility] [address] [id number] [address] [place] [id number] 20 Jul, 2017 Major depressive disorder, r ecurrent, moderate F33.1 [facility] [address] [id number] [address] [place] [id number] 19 Jul, 2017 Generalized anxiety disorder F41.1 ; Major depressive disorder, recurrent, moderate F33.1 and Personality disorder in adult F60.9 [facility] [address] [id number] [address] [place] [phone] 08 Jul, 2017 Generalized anxiety disorder F41.1 ; Major depressive disorder, recurrent, moderate F33.1 and Personality disorder in adult F60.9 [facility] [address] [id number] [address] [place] [phone] Jun, Generalized anxiety disorder F41.1 ; Major depressive disorder, recurrent, moderate F33.1 and Personality disorder in adult F60.9 [facility] [address] [address] Apr, Generalized anxiety disorder F41.1 ; Major depressive disorder, recurrent, moderate F33.1 and Personality disorder in adult F60.9 [place] [address] [address] March, Acquired hypothyroidism E03. 9 [place] [address] [address] March, Acquired hypothyroidism E03. 9 and Left lower quadrant pain R10.32 [place] [address] [address] March, Hypercholesterolemia E78.0 ; Acquired hypothyroidism E03.9 ; Insomnia, unspecified type G47.00 ; Secondary hypertension I15.9 ; Gastroesophageal reflux disease, esophagitis presence not specified K21.9 ; Tingling in extremities R20.2 ; Environmental allergies Z91.09 ; Depression, unspecified depression type F32.9 and Left lower quadrant pain R10.32 [place] [address] [address] Feb, High risk sexual behavior Z7 2.51 [place] [address] [address] Feb, Major depressive disorder, r ecurrent, moderate F33.1 and Generalized anxiety disorder F41.1 [place] [address] [address] Dec, Major depressive disorder, r ecurrent, moderate F33.1 [place] [address] [address] 17 Dec, 2016 [place] [address] [address] 16 Dec, 2016 Acquired hypothyroidism E03. 9 and High risk sexual behavior Z72.51 [place] [address] [address] 07 Dec, 2016 Major depressive disorder, r ecurrent, moderate F33.1 and Generalized anxiety disorder F41.1 [place] [address] [address] 07 Dec, 2016 Acquired hypothyroidism E03. 9 ; Secondary hypertension I15.9 and Acute eczema L30.9 [place] [address] [address] Nov, Acquired hypothyroidism E03. 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 ; Hypercholesterolemia E78.0 ; Gastroesophageal reflux disease, esophagitis presence not specified K21.9 ; Anxiety F41.9 and Secondary hypertension I15.9 [place] [address] [address] Oct, Major depressive disorder, r ecurrent, moderate F33.1 and Generalized anxiety disorder F41.1 [place] [address] [address] Aug, [place] [address] [address] Aug, Insomnia, unspecified type G 47.00 ; Acquired hypothyroidism E03.9 ; Hypercholesterolemia E78.0 and Gastroesophageal reflux disease, esophagitis presence not specified K21.9 [place] [address] [address] Jul, [place] [address] [address] Jul, Major depressive disorder, r ecurrent, in partial remission F33.41 and Generalized anxiety disorder F41.1 [place] [address] [address] Jun, [place] [address] [address] Jun, Cervical pain (neck) M54.2 a nd Cervical neuropathic pain M54.12 [place] [address] [address] 14 Apr, 2016 Insomnia, unspecified type G 47.00 ; Acquired hypothyroidism E03.9 ; Hypercholesterolemia E78.0 ; 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 ; Depression, unspecified depression type F32.9 ; 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 ; Gastroesophageal reflux disease, esophagitis presence not specified K21.9 ; Anxiety F41.9 ; Secondary hypertension I15.9 and Post- nasal drainage R09.82 [place] [address] [address] Apr, [place] [address] [address] March, [place] [address] [address] March, Unspecified hypothyroidism 2 44.9 and HTN (hypertension) 401.9 [place] [address] [address] March, [place] [address] [address] Dec, [place] [address] [address] Nov, [place] [address] [address] Sep, Generalized anxiety disorder F41.1 and Major depressive disorder, recurrent, in partial remission F33.41 [place] [address] [address] Jun, Unspecified hypothyroidism 2 44.9 ; Sciatica 724.3 ; Major depressive disorder, recurrent episode, in partial or unspecified remission 296.35 ; Combined hyperlipidemia 272.2 ; HTN (hypertension) 401.9 ; Hidrosis 780.8 ; Cat allergies 477.8 and Environmental allergies V15.09 [place] [address] [address] Jun, Major depressive disorder, r ecurrent episode, in partial or unspecified remission 296.35 ; Insomnia, unspecified 780.52 and Generalized anxiety disorder 300.02 [facility] [address] [facility] [id number] [address] [place] [address] May, [facility] [address] [place] [id number] [address] [place] [address] Apr, [facility] [address] [place] [id number] [place] [address] Apr, Closed mallet fracture of di stal phalanx of ring finger 816.02 [facility] [address] [place] [id number] [place] [address] March, Depression, major, recurrent , moderate 296.32 ; Generalized anxiety disorder 300.02 and Borderline personality disorder 301.83 [facility] [address] [place] [id number] [address] [place] [address] Feb, [facility] [address] [place] [id number] [address] [place] [phone] Feb, [facility] [address] [place] [id number] [address] [place] [address] Jan, [facility] [address] [place] [id number] [address] [place] [address] Jan, [facility] [address] [place] [id number] [address] [place] [address] Jan, [facility] [address] [place] [id number] [address] [place] [phone] Jan, [facility] [address] [place] [id number] [address] [place] [address] Jan, [facility] [address] [place] [id number] [address] [place] [address] Jan, [facility] [address] [place] [id number] [address] [place] [address] Dec, [facility] [address] [id number] [address] [place] [address], [place] [address] Dec, [facility] [address] [id number] [address] [place] [address], [place] [address] Dec, [facility] [address] [id number] [address] [place] [address], [place] [address] Dec, [facility] [address] [id number] [address] [place] [address], [place] [address] Nov, [facility] [address] [id number] [address] [place] [address], [place] [address] Nov, [facility] [address] [id number] [address] [place] [address], [place] [address] Nov, [facility] [address] [id number] [address] [place] [address], [place] [address] Nov, [facility] [address] [id number] [address] [place] [address], [place] [address] Nov, [facility] [address] [id number] [address] [place] [address], [place] [address] Nov, [facility] [address] [id number] [address] [place] [address], [place] [address] Oct, [facility] [address] [id number] [address] [place] [address], [place] [address] Oct, [facility] [address] [id number] [address] [place] [address], [place] [address] Oct, [facility] [address] [id number] [address] [place] [address], [place] [address] Oct, [facility] [address] [id number] [address] [place] [address], [place] [address] Oct, [facility] [address] [id number] [address] [place] [address], [place] [address] Oct, [facility] [address] [id number] [address] [place] [address], [place] [address] Sep, [facility] [address] [id number] [address] [place] [address], [place] [address] Sep, [facility] [address] [id number] [address] [place] [address], [place] [address] Sep, [facility] [address] [id number] [address] [place] [address], [place] [address] Sep, [facility] [address] [id number] [address] [place] [address], [place] [address] Aug, [facility] [address] [id number] [address] [place] [address], [place] [address] Aug, [facility] [address] [id number] [address] [place] [address], [place] [address] Apr, [facility] [address] [id number] [address] [place] [address], [place] [address] Apr, [facility] [address] [id number] [address] [place] [address], [place] [address] Apr, [facility] [address] [id number] [address] [place] [address], [place] [address] Apr, [facility] [address] [id number] [address] [place] [address], [place] [address] Apr, [facility] [address] [id number] [address] [place] [address], [place] [address] Apr, [facility] [address] [id number] [address] [place] [address], [place] [address] March, [facility] [address] [id number] [address] [place] [address], [place] [address] March, [facility] [address] [id number] [address] [place] [address], [place] [address] Dec, [facility] [address] [id number] [address] [place] [address], [place] [address] Dec, [facility] [address] [id number] [address] [place] [address], [place] [address] 08 Sep, 2013 [facility] [address] [id number] [address] [place] [address] Sep, [facility] [address] [id number] [address] [place] [address] Aug, [facility] [address] [id number] [address] [place] [address] Aug, [facility] [address] [id number] [address] [place] [address], [place] [address] Aug, [facility] [address] [id number] [address] [place] [address] Aug, [facility] [address] [id number] [address] [place] [address] Aug, [facility] [address] [id number] [address] [place] [address] Aug, [facility] [address] [id number] [address] [place] [address] Aug, [facility] [address] [id number] [address] [place] [address] Aug, [facility] [address] [id number] [address] [place] [address] Aug, [facility] [address] [id number] [address] [place] [address] Aug, [facility] [address] [id number] [address] [place] [address] 27 Jul, 2013 [facility] [address] [id number] [address] [place] [address] 19 Jul, 2013 [facility] [address] [id number] [address] [place] [address] 05 Jul, 2013 [facility] [address] [id number] [address] [place] [address] Jun, [facility] [address] [id number] [address] [place] [address], [place] [address] May, [facility] [address] [id number] [address] [place] [address], [place] [address] May, [facility] [address] [id number] [address] [place] [address], [place] [address] May, [facility] [address] [id number] [address] [place] [address], [place] [address] Apr, [facility] [address] [id number] [address] [place] [address], [place] [address] March, [facility] [address] [id number] [address] [place] [address], [place] [address] March, [facility] [address] [id number] [address] [place] [address], [place] [address] Feb, [facility] [address] [id number] [address] [place] [address], [place] [address] Feb, [facility] [address] [id number] [address] [place] [address], [place] [address] Feb, [facility] [address] [id number] [address] [place] [address], [place] [address] Feb, [facility] [address] [id number] [address] [place] [address], [place] [address] Jan, [facility] [address] [id number] [address] [place] [address], [place] [address] Jan, [facility] [address] [id number] [address] [place] [address], [place] [address] Jan, [facility] [address] [id number] [address] [place] [address], [place] [address] Jan, [facility] [address] [id number] [address] [place] [address], [place] [address] Dec, [facility] [address] [id number] [address] [place] [address], [place] [address] Dec, [facility] [address] [id number] [address] [place] [address], [place] [address] Dec, [facility] [address] [id number] [address] [place] [address], [place] [address] Nov, [facility] [address] [id number] [address] [place] [address], [place] [address] Nov, [facility] [address] [id number] [address] [place] [address], [place] [address] Nov, [facility] [address] [id number] [address] [place] [address], [place] [address] Nov, [facility] [address] [id number] [address] [place] [address], [place] [address] Oct, [facility] [address] [id number] [address] [place] [address], [place] [address] Oct, [facility] [address] [id number] [address] [place] [address], [place] [address] Oct, [facility] [address] [id number] [address] [place] [address], [place] [address] Oct, [facility] [address] [id number] [address] [place] [address], [place] [address] Sep, [facility] [address] [id number] [address] [place] [address], [place] [address] Sep, [facility] [address] [id number] [address] [place] [address], [place] [address] Sep, [facility] [address] [id number] [address] [place] [address], [place] [address] Sep, [facility] [address] [id number] [address] [place] [address], [place] [address] 30 Aug, 2012 [facility] [address] [id number] [address] [place] [address], [place] [address] Aug, [facility] [address] [id number] [address] [place] [address], [place] [address] Aug, [facility] [address] [id number] [address] [place] [address], [place] [address] Jul, [facility] [address] [id number] [address] [place] [address], [place] [address] Jun, [facility] [address] [id number] [address] [place] [address], [place] [address] May, [facility] [address] [id number] [address] [place] [address], [place] [address] May, [facility] [address] [id number] [address] [place] [address], [place] [address] May, [facility] [address] [id number] [address] [place] [address], [place] [address] March, [facility] [address] [id number] [address] [place] [address], [place] [address] March, [facility] [address] [id number] [address] [place] [address], [place] [address] Feb, [facility] [address] [id number] [address] [place] [address], [place] [address] Feb, [facility] [address] [id number] [address] [place] [address], [place] [address] Feb, [facility] [address] [id number] [address] [place] [address], [place] [address] 17 Feb, 2012 [facility] [address] [id number] [address] [place] [address], [place] [address] Feb, [facility] [address] [id number] [address] [place] [address], [place] [address] Feb, [facility] [address] [id number] [address] [place] [address], [place] [address] Feb, [facility] [address] [id number] [address] [place] [address], [place] [address] Feb, [facility] [address] [id number] [address] [place] [address], [place] [address] Dec, [facility] [address] [id number] [address] [place] [address], [place] [address] Nov, [facility] [address] [id number] [address] [place] [address], [place] [address] Nov, [facility] [address] [id number] [address] [place] [address], [place] [address] Nov, [facility] [address] [id number] [address] [place] [address], [place] [address] Nov, [facility] [address] [id number] [address] [place] [address], [place] [address] Nov, [facility] [address] [id number] [address] [place] [address], [place] [address] Nov, [facility] [address] [id number] [address] [place] [address], [place] [address] Oct, [facility] [address] [id number] [address] [place] [address], [place] [address] Sep, [facility] [address] [id number] [address] [place] [address], [place] [address] Sep, [facility] [address] [id number] [address] [place] [address], [place] [address] Sep, [facility] [address] [id number] [address] [place] [address], [place] [address] Sep, [facility] [address] [id number] [address] [place] [address], [place] [address] Aug, [facility] [address] [id number] [address] [place] [address], [place] [address] Aug, [facility] [address] [id number] [address] [place] [address], [place] [address] Aug, [facility] [address] [id number] [address] [place] [phone] Aug, [facility] [address] [id number] [address] [place] [phone] Aug, [facility] [address] [id number] [address] [place] [phone] Aug, [facility] [address] [id number] [address] [place] [phone] Aug, [facility] [address] [id number] [address] [place] [phone] Aug, [facility] [address] [id number] [address] [place] [phone] Aug, [facility] [address] [id number] [address] [place] [phone] Jul, [facility] [address] [id number] [address] [place] [phone] May, IMMUNIZATIONS No Known Immunizations SOCIAL HISTORY Never Assessed REASON FOR VISIT PALS IN-Rexulti PLAN OF CARE VITAL SIGNS MEDICATIONS Unknown [...]
--- OUTSIDE RECORDS SUMMARY | 2020-02-07 09:21 | XMS REPORT ---
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 Active 902220343 Problem Hypercholesterolemia E78.0 Active 34947000 Problem Secondary hypertension I15.9 Active 83240777 Problem Acquired hypothyroidism E03.9 Active 672431019 Problem Anxiety F41.9 Active 94703605 Problem Tingling in extremities R20.2 Active 98490224 Problem Personality disorder in adult F60.9 Active 40546729 Problem Generalized anxiety disorder F41.1 A ctive 74891759 Problem Gastroesophageal reflux disease without esophagitis K21.9 Active 709274036 Problem Environmental allergies Z91.09 Active 406889492 Problem Hypothyroidism (acquired) E03.9 Acti ve 377361719 Problem Acute eczema L30.9 Active 7418083 02 Problem Depression, unspecified depression type F32.9 Active 48178527 Problem Major depressive disorder, recurrent, moderate F33 .1 Active 89152533 Problem Drug-induced erectile dysfunction N52.2 Active 021342759 Problem Acute left-sided low back pain with left-sided sciatica M54.42 Active 010391328 Problem Primary insomnia F51.01 Active 397 2004 ALLERGIES No Information ENCOUNTERS Encounter Location Date Diagnosis [facility] [address] [facility] [id number] [address] [place] [address] March, [facility] [address] [facility] [id number] [address] [place] [address] Feb, [facility] [address] [id number] [address] [place] [address] Jan, [facility] [address] [id number] [address] [place] [address] Dec, [facility] [address] [facility] [id number] [address] [place] [address] Dec, Acquired hypothyroidism E03. 9 and Other penitentiary (current) drug therapy Z79.899 [facility] [address] [id number] [address] [place] [address] 15 Dec, 2018 Acquired hypothyroidism E03. 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.899 [facility] [address] [facility] [id number] [address] [place] [address] Nov, [facility] [address] [id number] [address] [place] [address] Oct, [facility] [address] [facility] [id number] [address] [place] [address] Sep, Generalized anxiety disorder F41.1 ; Major depressive disorder, recurrent, moderate F33.1 and Personality disorder in adult F60.9 [facility] [address] [facility] [id number] [address] [place] [address] Aug, [facility] [address] [id number] [address] [place] [address] Aug, [facility] [address] [id number] [address] [place] [address] Jul, Generalized anxiety disorder F41.1 [facility] [address] [id number] [address] [place] [address] 24 Jul, 2018 [facility] [address] [facility] [id number] [address] [place] [address] 12 Jul, 2018 Acquired hypothyroidism E03. 9 [facility] [address] [facility] [id number] [address] [place] [address] 10 Jul, 2018 Generalized anxiety disorder F41.1 [facility] [address] [facility] [id number] [address] [place] [address] 04 Jul, 2018 Generalized anxiety disorder F41.1 ; Major depressive disorder, recurrent, moderate F33.1 and Personality disorder in adult F60.9 [facility] [address] [facility] [id number] [address] [place] [address] Jun, Generalized anxiety disorder F41.1 ; Major depressive disorder, recurrent, moderate F33.1 ; Primary insomnia F51.01 and Personality disorder in adult F60.9 [facility] [address] [place] [id number] [address] [place] [address] May, Acquired hypothyroidism E03. 9 [facility] [address] [place] [id number] [address] [place] [address] May, Hypothyroidism (acquired) E0 3.9 and Gastroesophageal reflux disease without esophagitis K21.9 [facility] [address] [facility] [id number] [address] [place] [address] Apr, [facility] [address] [facility] [id number] [address] [place] [address] Apr, Skin infection L08.9 [facility] [address] [facility] [id number] [address] [place] [id number] 05 Apr, 2018 Generalized anxiety disorder F41.1 ; Major depressive disorder, recurrent, moderate F33.1 ; Primary insomnia F51.01 and Personality disorder in adult F60.9 [facility] [address] [place] [id number] [address] [place] [address] March, Generalized anxiety disorder F41.1 ; Major depressive disorder, recurrent, moderate F33.1 and Personality disorder in adult F60.9 [facility] [address] [facility] [id number] [address] [place] [address] Feb, [place] [address] [id number] [address] [place] [address] Dec, Generalized anxiety disorder F41.1 ; Major depressive disorder, recurrent, moderate F33.1 and Personality disorder in adult F60.9 [facility] [address] [id number] [address] [place] [address] 06 Dec, 2017 Acute left-sided low back pa in with left-sided sciatica M54.42 [facility] [address] [id number] [address] [place] [address] Nov, [facility] [address] [facility] [id number] [address] [place] [address] Oct, Generalized anxiety disorder F41.1 ; Major depressive disorder, recurrent, moderate F33.1 and Personality disorder in adult F60.9 [facility] [address] [facility] [id number] [address] [place] [address] Sep, Acquired hypothyroidism E03. 9 ; Hypercholesterolemia E78.0 ; Generalized anxiety disorder F41.1 and Drug-induced erectile dysfunction N52.2 [facility] [address] [facility] [id number] [address] [place] [address] Sep, [facility] [address] [facility] [id number] [address] [place] [address] Sep, Acquired hypothyroidism E03. 9 ; Hypercholesterolemia E78.0 ; Generalized anxiety disorder F41.1 and Drug-induced erectile dysfunction N52.2 [facility] [address] [facility] [id number] [address] [place] [address] Sep, Generalized anxiety disorder F41.1 ; Major depressive disorder, recurrent, moderate F33.1 and Personality disorder in adult F60.9 [facility] [address] [id number] [address] [place] [id number] Aug, Dental examination Z01.20 [facility] [address] [id number] [address] [place] [id number] Aug, Dental caries K02.9 [facility] [id number] [place] [address] 13 Aug, 2017 [facility] [address] [id number] [address] [place] [id number] 10 Aug, 2017 Dental examination Z01.20 [place] [id number] [place] [address] 20 Jul, 2017 Major depressive disorder, r ecurrent, moderate F33.1 [place] [address] [address] 19 Jul, 2017 Generalized anxiety disorder F41.1 ; Major depressive disorder, recurrent, moderate F33.1 and Personality disorder in adult F60.9 [place] [address] [address] 08 Jul, 2017 Generalized anxiety disorder F41.1 ; Major depressive disorder, recurrent, moderate F33.1 and Personality disorder in adult F60.9 [place] [address] [address] Jun, Generalized anxiety disorder F41.1 ; Major depressive disorder, recurrent, moderate F33.1 and Personality disorder in adult F60.9 [place] [address] [address] Apr, Generalized anxiety disorder F41.1 ; Major depressive disorder, recurrent, moderate F33.1 and Personality disorder in adult F60.9 [place] [address] [place] [id number] [address] [place] [address] March, Acquired hypothyroidism E03. 9 [place] [address] [place] [id number] [address] [place] [address] March, Acquired hypothyroidism E03. 9 and Left lower quadrant pain R10.32 [place] [address] [place] [id number] [address] [place] [address] March, Hypercholesterolemia E78.0 ; Acquired hypothyroidism E03.9 ; Insomnia, unspecified type G47.00 ; Secondary hypertension I15.9 ; Gastroesophageal reflux disease, esophagitis presence not specified K21.9 ; Tingling in extremities R20.2 ; Environmental allergies Z91.09 ; Depression, unspecified depression type F32.9 and Left lower quadrant pain R10.32 [place] [address] [place] [id number] [address] [place] [address] Feb, High risk sexual behavior Z7 2.51 [place] [address] [address] Feb, Major depressive disorder, r ecurrent, moderate F33.1 and Generalized anxiety disorder F41.1 [place] [address] [place] [id number] [place] [address] 22 Dec, 2016 Major depressive disorder, r ecurrent, moderate F33.1 [place] [address] [place] [id number] [place] [address] 17 Dec, 2016 [place] [address] [address] 16 Dec, 2016 Acquired hypothyroidism E03. 9 and High risk sexual behavior Z72.51 [place] [address] [place] [id number] [place] [address] 07 Dec, 2016 Major depressive disorder, r ecurrent, moderate F33.1 and Generalized anxiety disorder F41.1 [place] [address] [address] 07 Dec, 2016 Acquired hypothyroidism E03. 9 ; Secondary hypertension I15.9 and Acute eczema L30.9 [place] [address] [place] [id number] [address] [place] [address] Nov, Acquired hypothyroidism E03. 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 ; Hypercholesterolemia E78.0 ; Gastroesophageal reflux disease, esophagitis presence not specified K21.9 ; Anxiety F41.9 and Secondary hypertension I15.9 [place] [address] [place] [id number] [address] [place] [address] Oct, Major depressive disorder, r ecurrent, moderate F33.1 and Generalized anxiety disorder F41.1 [place] [address] [place] [id number] [place] [address] Aug, [place] [address] [place] [id number] [address] [place] [address] Aug, Insomnia, unspecified type G 47.00 ; Acquired hypothyroidism E03.9 ; Hypercholesterolemia E78.0 and Gastroesophageal reflux disease, esophagitis presence not specified K21.9 [place] [address] [place] [id number] [place] [address] Jul, [place] [address] [address] Jul, Major depressive disorder, r ecurrent, in partial remission F33.41 and Generalized anxiety disorder F41.1 [place] [address] [address] Jun, [place] [address] [address] Jun, Cervical pain (neck) M54.2 a nd Cervical neuropathic pain M54.12 [place] [address] [address] Apr, Insomnia, unspecified type G 47.00 ; Acquired hypothyroidism E03.9 ; Hypercholesterolemia E78.0 ; 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 ; Depression, unspecified depression type F32.9 ; 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 ; Gastroesophageal reflux disease, esophagitis presence not specified K21.9 ; Anxiety F41.9 ; Secondary hypertension I15.9 and Post- nasal drainage R09.82 [place] [address] [place] [id number] [address] [place] [address] Apr, [place] [address] [place] [id number] [place] [address] March, [place] [address] [address] March, Unspecified hypothyroidism 2 44.9 and HTN (hypertension) 401.9 [place] [address] [address] March, [facility] [address] [address] Dec, [place] [address] [address] Nov, [place] [address] [address] Sep, Generalized anxiety disorder F41.1 and Major depressive disorder, recurrent, in partial remission F33.41 [place] [address] [address] Jun, Unspecified hypothyroidism 2 44.9 ; Sciatica 724.3 ; Major depressive disorder, recurrent episode, in partial or unspecified remission 296.35 ; Combined hyperlipidemia 272.2 ; HTN (hypertension) 401.9 ; Hidrosis 780.8 ; Cat allergies 477.8 and Environmental allergies V15.09 [place] [address] [address] Jun, Major depressive disorder, r ecurrent episode, in partial or unspecified remission 296.35 ; Insomnia, unspecified 780.52 and Generalized anxiety disorder 300.02 [place] [address] [address] May, [place] [address] [address] Apr, [place] [address] [address] Apr, Closed mallet fracture of di stal phalanx of ring finger 816.02 [place] [address] [address] March, Depression, major, recurrent , moderate 296.32 ; Generalized anxiety disorder 300.02 and Borderline personality disorder 301.83 [facility] [address] [id number] [address] [place] [address] 14 Feb, 2015 [facility] [address] [id number] [address] [place] [address] Feb, [facility] [address] [id number] [address] [place] [address] Jan, [facility] [address] [id number] [address] [place] [address] Jan, [facility] [address] [id number] [address] [place] [address] Jan, [facility] [address] [id number] [address] [place] [address] Jan, [facility] [address] [id number] [address] [place] [address] Jan, [facility] [address] [id number] [address] [place] [address] Jan, [facility] [address] [id number] [address] [place] [address] Dec, [facility] [address] [id number] [address] [place] [address] Dec, [facility] [address] [id number] [address] [place] [address] Dec, [facility] [address] [id number] [address] [place] [address] Dec, [facility] [address] [id number] [address] [place] [address] Nov, [facility] [address] [id number] [address] [place] [address] Nov, [facility] [address] [id number] [address] [place] [address] Nov, [facility] [address] [id number] [address] [place] [address], [place] [address] Nov, [facility] [address] [id number] [address] [place] [address], [place] [address] Nov, [facility] [address] [id number] [address] [place] [address], [place] [address] Nov, [facility] [address] [id number] [address] [place] [address], [place] [address] Oct, [facility] [address] [id number] [address] [place] [address], [place] [address] Oct, [facility] [address] [id number] [address] [place] [address], [place] [address] Oct, [facility] [address] [id number] [address] [place] [address], [place] [address] Oct, [facility] [address] [id number] [address] [place] [address], [place] [address] Oct, [facility] [address] [id number] [address] [place] [address], [place] [address] Oct, [facility] [address] [id number] [address] [place] [address], [place] [address] Sep, [facility] [address] [id number] [address] [place] [address], [place] [address] Sep, [facility] [address] [id number] [address] [place] [address], [place] [address] Sep, [facility] [address] [id number] [address] [place] [address], [place] [address] Sep, [facility] [address] [id number] [address] [place] [address], [place] [address] Aug, [facility] [address] [id number] [address] [place] [address], [place] [address] Aug, [facility] [address] [id number] [address] [place] [address], [place] [address] Apr, [facility] [address] [id number] [address] [place] [address], [place] [address] Apr, [facility] [address] [id number] [address] [place] [address], [place] [address] Apr, [facility] [address] [id number] [address] [place] [address], [place] [address] Apr, [facility] [address] [id number] [address] [place] [address], [place] [address] Apr, [facility] [address] [id number] [address] [place] [address], [place] [address] Apr, [facility] [address] [id number] [address] [place] [address], [place] [address] March, [facility] [address] [id number] [address] [place] [address], [place] [address] March, [facility] [address] [id number] [address] [place] [address], [place] [address] Dec, [facility] [address] [id number] [address] [place] [address], [place] [address] Dec, [facility] [address] [id number] [address] [place] [address], [place] [address] Sep, [facility] [address] [id number] [address] [place] [address], [place] [address] Sep, [facility] [address] [id number] [address] [place] [address], [place] [address] Aug, [facility] [address] [id number] [address] [place] [address], [place] [address] Aug, [facility] [address] [id number] [address] [place] [address], [place] [address] Aug, [facility] [address] [id number] [address] [place] [address], [place] [address] Aug, [facility] [address] [id number] [address] [place] [address], [place] [address] 09 Aug, 2013 [facility] [address] [id number] [address] [place] [address], [place] [address] Aug, [facility] [address] [id number] [address] [place] [address], [place] [address] Aug, [facility] [address] [id number] [address] [place] [address], [place] [address] Aug, [facility] [address] [id number] [address] [place] [address], [place] [address] Aug, [facility] [address] [id number] [address] [place] [address], [place] [address] Aug, [facility] [address] [id number] [address] [place] [address], [place] [address] Jul, [facility] [address] [id number] [address] [place] [address], [place] [address] Jul, [facility] [address] [id number] [address] [place] [address], [place] [address] 05 Jul, 2013 [facility] [address] [id number] [address] [place] [address], [place] [address] Jun, [facility] [address] [id number] [address] [place] [address], [place] [address] May, [facility] [address] [id number] [address] [place] [address], [place] [address] May, [facility] [address] [id number] [address] [place] [address], [place] [address] May, [facility] [address] [id number] [address] [place] [address], [place] [address] Apr, [facility] [address] [id number] [address] [place] [address], [place] [address] March, [facility] [address] [id number] [address] [place] [address], [place] [address] March, [facility] [address] [id number] [address] [place] [address], [place] [address] Feb, [facility] [address] [id number] [address] [place] [address], [place] [address] Feb, [facility] [address] [id number] [address] [place] [address], [place] [address] Feb, [facility] [address] [id number] [address] [place] [address], [place] [address] Feb, [facility] [address] [id number] [address] [place] [address], [place] [address] Jan, [facility] [address] [id number] [address] [place] [address], [place] [address] Jan, [facility] [address] [id number] [address] [place] [address], [place] [address] Jan, [facility] [address] [id number] [address] [place] [address], [place] [address] Jan, [facility] [address] [id number] [address] [place] [address], [place] [address] Dec, [facility] [address] [id number] [address] [place] [address], [place] [address] Dec, [facility] [address] [id number] [address] [place] [address], [place] [address] Dec, [facility] [address] [id number] [address] [place] [address], [place] [address] Nov, [facility] [address] [id number] [address] [place] [address], [place] [address] Nov, [facility] [address] [id number] [address] [place] [address], [place] [address] Nov, [facility] [address] [id number] [address] [place] [address], [place] [address] Nov, [facility] [address] [id number] [address] [place] [address], [place] [address] Oct, [facility] [address] [id number] [address] [place] [address], [place] [address] Oct, [facility] [address] [id number] [address] [place] [address], [place] [address] Oct, [facility] [address] [id number] [address] [place] [address], [place] [address] Oct, [facility] [address] [id number] [address] [place] [address], [place] [address] Sep, [facility] [address] [id number] [address] [place] [address], [place] [address] Sep, [facility] [address] [id number] [address] [place] [address], [place] [address] Sep, [facility] [address] [id number] [address] [place] [address], [place] [address] Sep, [facility] [address] [id number] [address] [place] [address], [place] [address] Aug, [facility] [address] [id number] [address] [place] [address], [place] [address] Aug, [facility] [facility] [address] [id number] [address] [place] [address], [place] [address] Aug, [facility] [address] [id number] [address] [place] [address], [place] [address] Jul, [facility] [address] [id number] [address] [place] [address], [place] [address] Jun, [facility] [address] [id number] [address] [place] [address], [place] [address] May, [facility] [address] [id number] [address] [place] [address], [place] [address] May, [facility] [address] [id number] [address] [place] [address], [place] [address] May, [facility] [address] [id number] [address] [place] [address], [place] [address] March, [facility] [address] [id number] [address] [place] [address], [place] [address] March, [facility] [address] [id number] [address] [place] [address], [place] [address] Feb, [facility] [address] [id number] [address] [place] [address], [place] [address] Feb, [facility] [address] [id number] [address] [place] [address], [place] [address] Feb, [facility] [address] [id number] [address] [place] [address], [place] [address] Feb, [facility] [address] [id number] [address] [place] [address], [place] [address] Feb, [facility] [address] [id number] [address] [place] [address], [place] [address] Feb, [facility] [address] [id number] [address] [place] [address], [place] [address] Feb, [facility] [address] [id number] [address] [place] [address], [place] [address] Feb, [facility] [address] [id number] [address] [place] [address], [place] [address] Dec, [facility] [address] [id number] [address] [place] [address], [place] [address] Nov, [facility] [address] [id number] [address] [place] [address], [place] [address] Nov, [facility] [address] [id number] [address] [place] [address], [place] [address] Nov, [facility] [address] [id number] [address] [place] [address], [place] [address] Nov, [facility] [address] [id number] [address] [place] [address] 13 Nov, 2011 [facility] [address] [id number] [address] [place] [address], [place] [address] Nov, [facility] [address] [id number] [address] [place] [address] Oct, [facility] [address] [id number] [address] [place] [address], [place] [address] Sep, [facility] [address] [id number] [address] [place] [address] Sep, [facility] [address] [id number] [address] [place] [address], [place] [address] Sep, [facility] [address] [id number] [address] [place] [address], [place] [address] Sep, [facility] [address] [id number] [address] [place] [address], [place] [address] Aug, [facility] [address] [id number] [address] [place] [address], [place] [address] 24 Aug, 2011 [facility] [address] [id number] [address] [place] [address] Aug, [facility] [address] [id number] [address] [place] [address] Aug, [facility] [address] [id number] [address] [place] [address] Aug, [facility] [address] [id number] [address] [place] [address] 20 Aug, 2011 [facility] [address] [id number] [address] [place] [address], [place] [address] 17 Aug, 2011 [facility] [address] [id number] [address] [place] [address] 10 Aug, 2011 [facility] [address] [id number] [address] [place] [address] 10 Aug, 2011 [facility] [address] [id number] [address] [address] Jul, [facility] [address] [facility] [id number] [address] [place] [address] May, IMMUNIZATIONS No Known Immunizations SOCIAL HISTORY Never Assessed REASON FOR VISIT [facility] PLAN OF CARE VITAL SIGNS MEDICATIONS Medication Instructions Dosage Frequency Start Date End Date Duration S tatus Viagra 100 mg 1 tablet by Oral route 1 time per day 06 A 2011 Active triamcinolone topical 0.5 % by Topical route 2 t imes per day to affected area Apr, Active Seroquel XR 50 mg 1 tablet by Oral route 1 time per da ywith dinner Aug, Active Neurontin 100 mg 1 capsule by Oral route 3 times per d ay PRN for leg pain Jan, Active Aciphex 20 mg 1 tablet by Oral route 1 time per day 24 M 2014 Active Aluminum Chloride 20 % 1 time per dayat night May, Active Xanax 1 mg 1 Tablet by Oral rou te 2 per day if needed for anxiety and sleep. If to sedating may take 1/2 tablets instead. Nov, Active Terbinafine 250 mg 1 tablet by Oral rou te 1 time per day for 90 day(s)for toe fungus Sep, Active Lisinopril 20 mg take 1 tablet by Oral route 1 time per day Jan, Active Fish Oil 2 Capsule by Oral route 1 time per day Dec, Active Topamax 50 mg 1 Tablet by Oral route 2 times per day Jan, Active Cymbalta 30 mg 2 capsule by Oral route 1 time per day for 14 days Nov, Active amitriptyline 100 mg 1-2 tablet by Oral route 1 time per day Jan, Active Zoloft 100 mg 1 tablet by Oral route 1 time per day 24 M 2014 Active Lipitor 10 mg 1 tablet by Oral route 1 time per day 24 M 2014 Active Zithromax 250 mg 4 tablet by Oral route 1 time per day for 1 dose(s) Feb, Active RESULTS No Results PROCEDURES No Known [...]
--- OUTSIDE RECORDS SUMMARY | 2020-02-07 09:22 | XMS REPORT ---
[facility] Address [address] [place] [address] Care Team Providers Care Big 6 Dealer Name Role Phone BRIDGETTE, XAVIER Unavailable PROBLEMS Type Condition ICD9-CM Code VME89-WR Code Onset Dates Condition S tatus SNOMED Code Problem Tingling in extremities R20.2 Active 34381020 Problem Generalized anxiety disorder F41.1 A ctive 04845336 Problem Personality disorder in adult F60.9 Active 71868886 Problem Hypothyroidism (acquired) E03.9 Acti ve 472833604 Problem Depression, unspecified depression type F32.9 Active 39199598 Problem Gastroesophageal reflux disease without esophagitis K21.9 Active 510180484 Problem Drug-induced erectile dysfunction N52.2 Active 844189448 Problem Major depressive disorder, recurrent, moderate F33 .1 Active 42262910 Problem Primary insomnia F51.01 Active 397 2004 Problem Acute left-sided low back pain with left-sided sciatica M54.42 Active 838488607 Problem 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 Active 487434688 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 27127606 Problem Insomnia, unspecified type G47.00 Act mary 985780872 Problem Gastroesophageal reflux disease, esophagitis pre sence not specified K21.9 Active 838401851 Problem Anxiety F41.9 Active 16013684 Problem Acquired hypothyroidism E03.9 Active 526214817 Problem Secondary hypertension I15.9 Active 48966688 Problem Acute eczema L30.9 Active 2418382 02 Problem Hypercholesterolemia E78.0 Active 15015663 Problem Environmental allergies Z91.09 Active 907320635 ALLERGIES No Information ENCOUNTERS Encounter Location Date Diagnosis [facility] [address] [facility] [id number] [address] [place] [phone] Sep, [facility] [address] [facility] [id number] [address] [place] [address] Aug, [facility] [address] [facility] [id number] [address] [place] [address] Jul, Generalized anxiety disorder F41.1 [facility] [address] [facility] [id number] [address] [place] [phone] Jul, [facility] [address] [facility] [id number] [address] [place] [phone] Jul, Acquired hypothyroidism E03. 9 [facility] [address] [facility] [id number] [address] [place] [phone] 10 Jul, 2018 Generalized anxiety disorder F41.1 [place] [address] [place] [id number] [place] [id number] 04 Jul, 2018 Generalized anxiety disorder F41.1 ; Major depressive disorder, recurrent, moderate F33.1 and Personality disorder in adult F60.9 [facility] [address] [place] [id number] [place] [address] Jun, Generalized anxiety disorder F41.1 ; Major depressive disorder, recurrent, moderate F33.1 ; Primary insomnia F51.01 and Personality disorder in adult F60.9 [place] [address] [place] [id number] [address] [place] [address] May, Acquired hypothyroidism E03. 9 [facility] [address] [facility] [id number] [address] [place] [address] May, Hypothyroidism (acquired) E0 3.9 and Gastroesophageal reflux disease without esophagitis K21.9 [facility] [address] [facility] [id number] [address] [place] [address] Apr, [facility] [address] [facility] [id number] [address] [place] [address] Apr, Skin infection L08.9 [facility] [address] [facility] [id number] [address] [place] [id number] 05 Apr, 2018 Generalized anxiety disorder F41.1 ; Major depressive disorder, recurrent, moderate F33.1 ; Primary insomnia F51.01 and Personality disorder in adult F60.9 [facility] [address] [facility] [id number] [address] [place] [address] March, Generalized anxiety disorder F41.1 ; Major depressive disorder, recurrent, moderate F33.1 and Personality disorder in adult F60.9 [facility] [address] [facility] [id number] [address] [place] [address] Feb, [facility] [address] [facility] [id number] [address] [place] [address] Dec, Generalized anxiety disorder F41.1 ; Major depressive disorder, recurrent, moderate F33.1 and Personality disorder in adult F60.9 [facility] [address] [facility] [id number] [address] [place] [address] Dec, Acute left-sided low back pa in with left-sided sciatica M54.42 [facility] [address] [facility] [id number] [address] [place] [address] Nov, [facility] [address] [facility] [id number] [address] [place] [address] Oct, Generalized anxiety disorder F41.1 ; Major depressive disorder, recurrent, moderate F33.1 and Personality disorder in adult F60.9 [facility] [address] [facility] [id number] [address] [place] [id number] 24 Sep, 2017 Acquired hypothyroidism E03. 9 ; Hypercholesterolemia E78.0 ; Generalized anxiety disorder F41.1 and Drug-induced erectile dysfunction N52.2 [facility] [address] [facility] [id number] [address] [place] [id number] Sep, [facility] [address] [facility] [id number] [address] [place] [id number] 17 Sep, 2017 Acquired hypothyroidism E03. 9 ; Hypercholesterolemia E78.0 ; Generalized anxiety disorder F41.1 and Drug-induced erectile dysfunction N52.2 [facility] [address] [facility] [id number] [address] [place] [phone] 07 Sep, 2017 Generalized anxiety disorder F41.1 ; Major depressive disorder, recurrent, moderate F33.1 and Personality disorder in adult F60.9 [facility] [address] [id number] [address] [place] [id number] Aug, Dental examination Z01.20 [facility] [address] [id number] [address] [place] [id number] Aug, Dental caries K02.9 [facility] [address] [id number] [address] [place] [address] Aug, [facility] [address] [id number] [address] [place] [id number] Aug, Dental examination Z01.20 [facility] [address] [id number] [address] [place] [address] Jul, Major depressive disorder, r ecurrent, moderate F33.1 [facility] [address] [facility] [id number] [address] [place] [address] Jul, Generalized anxiety disorder F41.1 ; Major depressive disorder, recurrent, moderate F33.1 and Personality disorder in adult F60.9 [facility] [address] [facility] [id number] [address] [place] [address] Jul, Generalized anxiety disorder F41.1 ; Major depressive disorder, recurrent, moderate F33.1 and Personality disorder in adult F60.9 [facility] [address] [facility] [id number] [address] [place] [phone] Jun, Generalized anxiety disorder F41.1 ; Major depressive disorder, recurrent, moderate F33.1 and Personality disorder in adult F60.9 [facility] [address] [id number] [address] [place] [phone] Apr, Generalized anxiety disorder F41.1 ; Major depressive disorder, recurrent, moderate F33.1 and Personality disorder in adult F60.9 [facility] [address] [facility] [id number] [address] [place] [address] March, Acquired hypothyroidism E03. 9 [facility] [address] [address] March, Acquired hypothyroidism E03. 9 and Left lower quadrant pain R10.32 [place] [address] [address] March, Hypercholesterolemia E78.0 ; Acquired hypothyroidism E03.9 ; Insomnia, unspecified type G47.00 ; Secondary hypertension I15.9 ; Gastroesophageal reflux disease, esophagitis presence not specified K21.9 ; Tingling in extremities R20.2 ; Environmental allergies Z91.09 ; Depression, unspecified depression type F32.9 and Left lower quadrant pain R10.32 [place] [address] [address] Feb, High risk sexual behavior Z7 2.51 [place] [address] [address] Feb, Major depressive disorder, r ecurrent, moderate F33.1 and Generalized anxiety disorder F41.1 [place] [address] [address] Dec, Major depressive disorder, r ecurrent, moderate F33.1 [place] [address] [address] Dec, [place] [address] [address] 16 Dec, 2016 Acquired hypothyroidism E03. 9 and High risk sexual behavior Z72.51 [place] [address] [address] 07 Dec, 2016 Major depressive disorder, r ecurrent, moderate F33.1 and Generalized anxiety disorder F41.1 [place] [address] [address] 07 Dec, 2016 Acquired hypothyroidism E03. 9 ; Secondary hypertension I15.9 and Acute eczema L30.9 [place] [address] [address] Nov, Acquired hypothyroidism E03. 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 ; Hypercholesterolemia E78.0 ; Gastroesophageal reflux disease, esophagitis presence not specified K21.9 ; Anxiety F41.9 and Secondary hypertension I15.9 [place] [address] [place] [id number] [place] [address] Oct, Major depressive disorder, r ecurrent, moderate F33.1 and Generalized anxiety disorder F41.1 [place] [address] [address] Aug, [place] [address] [address] Aug, Insomnia, unspecified type G 47.00 ; Acquired hypothyroidism E03.9 ; Hypercholesterolemia E78.0 and Gastroesophageal reflux disease, esophagitis presence not specified K21.9 [place] [address] [address] Jul, [place] [address] [address] Jul, Major depressive disorder, r ecurrent, in partial remission F33.41 and Generalized anxiety disorder F41.1 [place] [address] [address] Jun, [place] [address] [address] Jun, Cervical pain (neck) M54.2 a nd Cervical neuropathic pain M54.12 [place] [address] [place] [id number] [place] [address] Apr, Insomnia, unspecified type G 47.00 ; Acquired hypothyroidism E03.9 ; Hypercholesterolemia E78.0 ; 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 ; Depression, unspecified depression type F32.9 ; 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 ; Gastroesophageal reflux disease, esophagitis presence not specified K21.9 ; Anxiety F41.9 ; Secondary hypertension I15.9 and Post- nasal drainage R09.82 [place] [address] [address] Apr, [facility] [address] [address] March, [facility] [address] [address] March, Unspecified hypothyroidism 2 44.9 and HTN (hypertension) 401.9 [place] [address] [address] March, [place] [address] [address] Dec, [place] [address] [address] Nov, [place] [address] [address] Sep, Generalized anxiety disorder F41.1 and Major depressive disorder, recurrent, in partial remission F33.41 [place] [address] [address] Jun, Unspecified hypothyroidism 2 44.9 ; Sciatica 724.3 ; Major depressive disorder, recurrent episode, in partial or unspecified remission 296.35 ; Combined hyperlipidemia 272.2 ; HTN (hypertension) 401.9 ; Hidrosis 780.8 ; Cat allergies 477.8 and Environmental allergies V15.09 [place] [address] [address] Jun, Major depressive disorder, r ecurrent episode, in partial or unspecified remission 296.35 ; Insomnia, unspecified 780.52 and Generalized anxiety disorder 300.02 [place] [address] [address] May, [place] [address] [place] [address] Apr, [facility] [address] [id number] [address] [place] [address] Apr, Closed mallet fracture of di stal phalanx of ring finger 816.02 [facility] [address] [id number] [address] [place] [address] March, Depression, major, recurrent , moderate 296.32 ; Generalized anxiety disorder 300.02 and Borderline personality disorder 301.83 [facility] [address] [id number] [address] [place] [address] Feb, [facility] [address] [id number] [address] [place] [address] Feb, [facility] [address] [id number] [address] [place] [address] Jan, [facility] [address] [id number] [address] [place] [address] Jan, [facility] [address] [id number] [address] [place] [phone] Jan, [facility] [address] [id number] [address] [place] [address] Jan, [facility] [address] [facility] [id number] [address] [place] [address] Jan, [facility] [address] [id number] [address] [place] [phone] Jan, [facility] [address] [id number] [address] [place] [id number] Dec, [facility] [address] [id number] [address] [place] [phone] Dec, [facility] [address] [id number] [address] [place] [id number] Dec, [facility] [address] [id number] [address] [place] [address] Dec, [facility] [address] [id number] [address] [place] [address], [place] [address] Nov, [facility] [address] [id number] [address] [place] [address], [place] [address] Nov, [facility] [address] [id number] [address] [place] [address], [place] [address] Nov, [facility] [address] [id number] [address] [place] [address], [place] [address] Nov, [facility] [address] [id number] [address] [place] [address], [place] [address] Nov, [facility] [address] [id number] [address] [place] [address], [place] [address] Nov, [facility] [address] [id number] [address] [place] [address], [place] [address] Oct, [facility] [address] [id number] [address] [place] [address], [place] [address] Oct, [facility] [address] [id number] [address] [place] [address], [place] [address] Oct, [facility] [address] [id number] [address] [place] [address], [place] [address] Oct, [facility] [address] [id number] [address] [place] [address], [place] [address] Oct, [facility] [address] [id number] [address] [place] [address], [place] [address] Oct, [facility] [address] [id number] [address] [place] [address], [place] [address] Sep, [facility] [address] [id number] [address] [place] [address], [place] [address] Sep, [facility] [address] [id number] [address] [place] [address], [place] [address] Sep, [facility] [address] [id number] [address] [place] [address], [place] [address] Sep, [facility] [address] [id number] [address] [place] [address], [place] [address] Aug, [facility] [address] [id number] [address] [place] [address], [place] [address] Aug, [facility] [address] [id number] [address] [place] [address], [place] [address] Apr, [facility] [address] [id number] [address] [place] [address], [place] [address] Apr, [facility] [address] [id number] [address] [place] [address], [place] [address] Apr, [facility] [address] [id number] [address] [place] [address], [place] [address] Apr, [facility] [address] [id number] [address] [place] [address], [place] [address] Apr, [facility] [address] [id number] [address] [place] [address], [place] [address] Apr, [facility] [address] [id number] [address] [place] [address], [place] [address] March, [facility] [address] [id number] [address] [place] [address], [place] [address] March, [facility] [address] [id number] [address] [place] [address], [place] [address] Dec, [facility] [address] [id number] [address] [place] [address], [place] [address] Dec, [facility] [address] [id number] [address] [place] [address], [place] [address] Sep, [facility] [address] [id number] [address] [place] [address], [place] [address] Sep, [facility] [address] [id number] [address] [place] [address], [place] [address] Aug, [facility] [address] [id number] [address] [place] [address], [place] [address] Aug, [facility] [address] [id number] [address] [place] [address], [place] [address] Aug, [facility] [address] [id number] [address] [place] [address], [place] [address] Aug, 2012 [facility] [address] [id number] [address] [place] [address], [place] [address] Aug, 2012 [facility] [address] [id number] [address] [place] [address], [place] [address] Aug, [facility] [address] [id number] [address] [place] [address], [place] [address] Aug, [facility] [address] [id number] [address] [place] [address], [place] [address] Aug, [facility] [address] [id number] [address] [place] [address], [place] [address] Aug, [facility] [address] [id number] [address] [place] [address], [place] [address] Aug, [facility] [address] [id number] [address] [place] [address], [place] [address] Jul, [facility] [address] [id number] [address] [place] [address], [place] [address] Jul, [facility] [address] [id number] [address] [place] [address], [place] [address] 05 Jul, 2013 [facility] [address] [id number] [address] [place] [address], [place] [address] Jun, [facility] [address] [id number] [address] [place] [address], [place] [address] May, [facility] [address] [id number] [address] [place] [address], [place] [address] May, [facility] [address] [id number] [address] [place] [address] [place] [address] May, [facility] [address] [id number] [address] [place] [address], [place] [address] Apr, [facility] [address] [id number] [address] [place] [address], [place] [address] March, [facility] [address] [id number] [address] [place] [address], [place] [address] March, [facility] [address] [id number] [address] [place] [address], [place] [address] Feb, [facility] [address] [id number] [address] [place] [address], [place] [address] Feb, [facility] [address] [id number] [address] [place] [address], [place] [address] Feb, [facility] [address] [id number] [address] [place] [address], [place] [address] Feb, [facility] [address] [id number] [address] [place] [address], [place] [address] Jan, [facility] [address] [id number] [address] [place] [address], [place] [address] Jan, [facility] [address] [id number] [address] [place] [address], [place] [address] Jan, [facility] [address] [id number] [address] [place] [address], [place] [address] Jan, [facility] [address] [id number] [address] [place] [address], [place] [address] Dec, [facility] [address] [id number] [address] [place] [address], [place] [address] Dec, [facility] [address] [id number] [address] [place] [address], [place] [address] Dec, [facility] [address] [id number] [address] [place] [address], [place] [address] Nov, [facility] [address] [id number] [address] [place] [address], [place] [address] Nov, [facility] [address] [id number] [address] [place] [address], [place] [id number] Nov, [facility] [address] [id number] [address] [place] [address], [place] [id number] Nov, [facility] [address] [id number] [address] [place] [address], [place] [id number] Oct, [facility] [address] [id number] [address] [place] [address], [place] [id number] Oct, [facility] [address] [id number] [address] [place] [address], [place] [id number] Oct, [facility] [address] [id number] [address] [place] [address], [place] [id number] Oct, [facility] [address] [id number] [address] [place] [address], [place] [id number] Sep, [facility] [address] [id number] [address] [place] [address], [place] [id number] Sep, [facility] [address] [id number] [address] [place] [address], [place] [id number] Sep, [facility] [address] [id number] [address] [place] [address], [place] [id number] Sep, [facility] [address] [id number] [address] [place] [address], [place] [id number] Aug, [facility] [address] [id number] [address] [place] [address], [place] [id number] Aug, [facility] [address] [id number] [address] [place] [address], [place] [id number] Aug, [facility] [address] [id number] [address] [place] [address], [place] [id number] Jul, [facility] [address] [id number] [address] [place] [address], [place] [id number] Jun, [facility] [address] [id number] [address] [place] [address], [place] [id number] May, [facility] [address] [id number] [address] [place] [address], [place] [id number] May, [facility] [address] [id number] [address] [place] [address], [place] [id number] May, [facility] [address] [id number] [address] [place] [address], [place] [id number] March, [facility] [address] [id number] [address] [place] [address], [place] [id number] March, [facility] [address] [id number] [address] [place] [address], [place] [id number] Feb, [facility] [address] [address] [id number] [address] [place] [address], [place] [id number] Feb, [facility] [address] [id number] [address] [place] [address], [place] [id number] Feb, [facility] [address] [id number] [address] [place] [address], [place] [id number] Feb, [facility] [address] [id number] [address] [place] [address], [place] [id number] Feb, [facility] [address] [id number] [address] [place] [address], [place] [id number] Feb, [facility] [address] [id number] [address] [place] [address], [place] [address] Feb, [facility] [address] [id number] [address] [place] [address], [place] [id number] Feb, [facility] [address] [id number] [address] [place] [address], [place] [id number] Dec, [facility] [address] [id number] [address] [place] [address], [place] [address] Nov, [facility] [address] [id number] [address] [place] [address], [place] [id number] 2011 [facility] [address] [id number] [address] [place] [address], [place] [id number] 27 Nov, 2011 [facility] [address] [id number] [address] [place] [address], [place] [id number] 13 Nov, 2011 [facility] [address] [id number] [address] [place] [address], [place] [id number] 13 Nov, 2011 [facility] [address] [id number] [address] [place] [address], [place] [id number] 12 Nov, 2011 [facility] [address] [id number] [address] [place] [address], [place] [id number] Oct, [facility] [address] [id number] [address] [place] [address], [place] [id number] Sep, [facility] [address] [id number] [address] [place] [address], [place] [id number] Sep, [facility] [address] [id number] [address] [place] [address], [place] [id number] Sep, [facility] [address] [id number] [address] [place] [address], [place] [id number] Sep, [facility] [address] [id number] [address] [place] [address], [place] [id number] Aug, [facility] [address] [id number] [address] [place] [address], [place] [id number] Aug, [facility] [address] [id number] [address] [place] [address], [place] [id number] Aug, [facility] [address] [id number] [address] [place] [address], [place] [address] Aug, [facility] [address] [id number] [address] [place] [address], [place] [address] Aug, [facility] [address] [id number] [address] [place] [address], [place] [id number] Aug, [facility] [address] [facility] [id number] [address] [place] [id number] Aug, [facility] [address] [facility] [id number] [address] [place] [id number] Aug, [facility] [address] [facility] [id number] [address] [place] [id number] Aug, [facility] [address] [facility] [id number] [address] [place] [id number] Jul, [facility] [address] [facility] [id number] [address] [place] [id number] May, IMMUNIZATIONS No Known Immunizations SOCIAL HISTORY Never Assessed REASON FOR VISIT PALS in - [facility] PLAN OF CARE VITAL SIGNS MEDICATIONS Unknown [...]
--- OUTSIDE RECORDS SUMMARY | 2020-02-07 09:22 | XMS REPORT ---
Author Author Britton [facility] Address [address] [place] [address] Care Team Providers Care Commercial Fisher Name Role Phone XAVIER ANGELES Unavailable PROBLEMS ALLERGIES No Information ENCOUNTERS IMMUNIZATIONS No Known Immunizations SOCIAL HISTORY No smoking Hx information available REASON FOR VISIT PLAN OF CARE VITAL SIGNS MEDICATIONS Unknown Medications RESULTS No Results PROCEDURES No Known procedures INSTRUCTIONS MEDICATIONS ADMINISTERED No Known Medications MEDICAL (GENERAL) HISTORY
--- OUTSIDE RECORDS SUMMARY | 2020-02-07 09:22 | XMS REPORT ---
Author Author Britton MARQUEZ Organization [facility] Address [address] [place] [address] Care Team Providers Care Music Publisher Name Role Phone JABIER MARQUEZ Unavailable PROBLEMS Type Condition ICD9-CM Code TXH10-UE Code Onset Dates Condition S tatus SNOMED Code Problem Tingling in extremities R20.2 Active 31283837 Problem Generalized anxiety disorder F41.1 A ctive 18350230 Problem Personality disorder in adult F60.9 Active 10618472 Problem Hypothyroidism (acquired) E03.9 Acti ve 552080055 Problem Depression, unspecified depression type F32.9 Active 69292955 Problem Gastroesophageal reflux disease without esophagitis K21.9 Active 807059904 Problem Drug-induced erectile dysfunction N52.2 Active 397842980 Problem Major depressive disorder, recurrent, moderate F33 .1 Active 63624943 Problem Primary insomnia F51.01 Active 397 2004 Problem Acute left-sided low back pain with left-sided sciatica M54.42 Active 814016208 Problem 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 Active 559759253 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 82485938 Problem Insomnia, unspecified type G47.00 Act mary 903751678 Problem Gastroesophageal reflux disease, esophagitis pre sence not specified K21.9 Active 688833398 Problem Anxiety F41.9 Active 93249483 Problem Acquired hypothyroidism E03.9 Active 201999135 Problem Secondary hypertension I15.9 Active 78800897 Problem Acute eczema L30.9 Active 4717243 02 Problem Hypercholesterolemia E78.0 Active 75386428 Problem Environmental allergies Z91.09 Active [id number] ALLERGIES No Information ENCOUNTERS Encounter Location Date Diagnosis [facility] [address] [facility] [place] [id number] [address] [place] [address] Sep, [facility] [address] [facility] [place] [id number] [address] [place] [address] Jul, Generalized anxiety disorder F41.1 [facility] [address] [facility] [place] [id number] [address] [place] [address] Jul, [facility] [address] [facility] [place] [id number] [address] [place] [address] Jul, Acquired hypothyroidism E03. 9 [facility] [address] [facility] [place] [id number] [address] [place] [address] Jul, Generalized anxiety disorder F41.1 [facility] [address] [facility] [place] [id number] [address] [place] [address] 04 Jul, 2018 Generalized anxiety disorder F41.1 ; Major depressive disorder, recurrent, moderate F33.1 and Personality disorder in adult F60.9 [facility] [address] [place] [id number] [place] [address] Jun, Generalized anxiety disorder F41.1 ; Major depressive disorder, recurrent, moderate F33.1 ; Primary insomnia F51.01 and Personality disorder in adult F60.9 [facility] [address] [place] [id number] [address] [place] [address] May, Acquired hypothyroidism E03. 9 [facility] [address] [facility] [place] [id number] [address] [place] [address] May, Hypothyroidism (acquired) E0 3.9 and Gastroesophageal reflux disease without esophagitis K21.9 [facility] [address] [facility] [place] [id number] [address] [place] [address] Apr, [facility] [address] [facility] [place] [id number] [address] [place] [address] Apr, Skin infection L08.9 [facility] [address] [facility] [place] [id number] [address] [place] [address] 05 Apr, 2018 Generalized anxiety disorder F41.1 ; Major depressive disorder, recurrent, moderate F33.1 ; Primary insomnia F51.01 and Personality disorder in adult F60.9 [facility] [address] [place] [id number] [address] [place] [address] March, Generalized anxiety disorder F41.1 ; Major depressive disorder, recurrent, moderate F33.1 and Personality disorder in adult F60.9 [facility] [address] [facility] [place] [id number] [address] [place] [address] Feb, [facility] [address] [facility] [place] [id number] [address] [place] [address] Dec, Generalized anxiety disorder F41.1 ; Major depressive disorder, recurrent, moderate F33.1 and Personality disorder in adult F60.9 [facility] [address] [facility] [place] [id number] [address] [place] [address] Dec, Acute left-sided low back pa in with left-sided sciatica M54.42 [facility] [address] [facility] [place] [id number] [address] [place] [address] Nov, [facility] [address] [place] [id number] [address] [place] [address] Oct, Generalized anxiety disorder F41.1 ; Major depressive disorder, recurrent, moderate F33.1 and Personality disorder in adult F60.9 [facility] [address] [place] [id number] [address] [place] [address] Sep, Acquired hypothyroidism E03. 9 ; Hypercholesterolemia E78.0 ; Generalized anxiety disorder F41.1 and Drug-induced erectile dysfunction N52.2 [facility] [address] [place] [id number] [address] [place] [address] Sep, [facility] [address] [place] [id number] [address] [place] [address] Sep, Acquired hypothyroidism E03. 9 ; Hypercholesterolemia E78.0 ; Generalized anxiety disorder F41.1 and Drug-induced erectile dysfunction N52.2 [facility] [address] [facility] [place] [id number] [address] [place] [address] 07 Sep, 2017 Generalized anxiety disorder F41.1 ; Major depressive disorder, recurrent, moderate F33.1 and Personality disorder in adult F60.9 [facility] [address] [facility] [id number] [address] [place] [address] [id number] Aug, Dental examination Z01.20 [facility] [address] [id number] [address] [place] [id number] Aug, Dental caries K02.9 [facility] [address] [facility] [place] [id number] [address] [place] [address] Aug, [facility] [address] [id number] [address] [place] [address] [id number] Aug, Dental examination Z01.20 [facility] [address] [facility] [place] [id number] [address] [place] [address] 20 Jul, 2017 Major depressive disorder, r ecurrent, moderate F33.1 [facility] [address] [place] [id number] [address] [place] [address] Jul, Generalized anxiety disorder F41.1 ; Major depressive disorder, recurrent, moderate F33.1 and Personality disorder in adult F60.9 [facility] [address] [place] [id number] [address] [place] [address] 08 Jul, 2017 Generalized anxiety disorder F41.1 ; Major depressive disorder, recurrent, moderate F33.1 and Personality disorder in adult F60.9 [facility] [address] [place] [id number] [address] [place] [address] Jun, Generalized anxiety disorder F41.1 ; Major depressive disorder, recurrent, moderate F33.1 and Personality disorder in adult F60.9 [facility] [address] [place] [id number] [address] [place] [address] Apr, Generalized anxiety disorder F41.1 ; Major depressive disorder, recurrent, moderate F33.1 and Personality disorder in adult F60.9 [facility] [address] [address] March, Acquired hypothyroidism E03. 9 [facility] [address] [place] [id number] [address] [place] [address] March, Acquired hypothyroidism E03. 9 and Left lower quadrant pain R10.32 [place] [address] [address] March, Hypercholesterolemia E78.0 ; Acquired hypothyroidism E03.9 ; Insomnia, unspecified type G47.00 ; Secondary hypertension I15.9 ; Gastroesophageal reflux disease, esophagitis presence not specified K21.9 ; Tingling in extremities R20.2 ; Environmental allergies Z91.09 ; Depression, unspecified depression type F32.9 and Left lower quadrant pain R10.32 [place] [address] [address] Feb, High risk sexual behavior Z7 2.51 [place] [address] [place] [address] Feb, Major depressive disorder, r ecurrent, moderate F33.1 and Generalized anxiety disorder F41.1 [place] [address] [address] 22 Dec, 2016 Major depressive disorder, r ecurrent, moderate F33.1 [place] [address] [address] 17 Dec, 2016 [place] [address] [address] 16 Dec, 2016 Acquired hypothyroidism E03. 9 and High risk sexual behavior Z72.51 [place] [address] [address] 07 Dec, 2016 Major depressive disorder, r ecurrent, moderate F33.1 and Generalized anxiety disorder F41.1 [place] [address] [address] 07 Dec, 2016 Acquired hypothyroidism E03. 9 ; Secondary hypertension I15.9 and Acute eczema L30.9 [place] [address] [place] [id number] [place] [address] Nov, Acquired hypothyroidism E03. 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 ; Hypercholesterolemia E78.0 ; Gastroesophageal reflux disease, esophagitis presence not specified K21.9 ; Anxiety F41.9 and Secondary hypertension I15.9 [place] [address] [address] Oct, Major depressive disorder, r ecurrent, moderate F33.1 and Generalized anxiety disorder F41.1 [place] [address] [address] Aug, [place] [address] [address] Aug, Insomnia, unspecified type G 47.00 ; Acquired hypothyroidism E03.9 ; Hypercholesterolemia E78.0 and Gastroesophageal reflux disease, esophagitis presence not specified K21.9 [place] [address] [address] Jul, [place] [address] [address] Jul, Major depressive disorder, r ecurrent, in partial remission F33.41 and Generalized anxiety disorder F41.[address] [address] Jun, [place] [address] [address] Jun, Cervical pain (neck) M54.2 a nd Cervical neuropathic pain M54.[address] [address] Apr, Insomnia, unspecified type G 47.00 ; Acquired hypothyroidism E03.9 ; Hypercholesterolemia E78.0 ; 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 ; Depression, unspecified depression type F32.9 ; 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 ; Gastroesophageal reflux disease, esophagitis presence not specified K21.9 ; Anxiety F41.9 ; Secondary hypertension I15.9 and Post- nasal drainage R09.82 [place] [address] [place] [id number] [address] [place] [address] Apr, [facility] [address] [place] [id number] [address] [place] [address] March, [facility] [address] [place] [id number] [address] [place] [address] March, Unspecified hypothyroidism 2 44.9 and HTN (hypertension) 401.9 [facility] [address] [address] March, [facility] [address] [place] [id number] [address] [place] [address] Dec, [facility] [address] [address] Nov, [facility] [address] [address] Sep, Generalized anxiety disorder F41.1 and Major depressive disorder, recurrent, in partial remission F33.41 [facility] [address] [place] [id number] [address] [place] [address] Jun, Unspecified hypothyroidism 2 44.9 ; Sciatica 724.3 ; Major depressive disorder, recurrent episode, in partial or unspecified remission 296.35 ; Combined hyperlipidemia 272.2 ; HTN (hypertension) 401.9 ; Hidrosis 780.8 ; Cat allergies 477.8 and Environmental allergies V15.09 [facility] [address] [place] [id number] [address] [place] [address] Jun, Major depressive disorder, r ecurrent episode, in partial or unspecified remission 296.35 ; Insomnia, unspecified 780.52 and Generalized anxiety disorder 300.02 [facility] [address] [place] [id number] [address] [place] [address] May, [facility] [address] [place] [id number] [address] [place] [address] Apr, [facility] [address] [place] [id number] [address] [place] [address] Apr, Closed mallet fracture of di stal phalanx of ring finger 816.02 [facility] [address] [facility] [place] [id number] [address] [place] [address] March, Depression, major, recurrent , moderate 296.32 ; Generalized anxiety disorder 300.02 and Borderline personality disorder 301.83 [facility] [address] [id number] [address] [place] [address] Feb, [facility] [address] [id number] [address] [place] [address] Feb, [facility] [address] [id number] [address] [place] [address] Jan, [facility] [address] [facility] [place] [id number] [address] [place] [address] Jan, [facility] [address] [facility] [place] [id number] [address] [place] [address] Jan, [facility] [address] [id number] [address] [place] [address] Jan, [facility] [address] [facility] [place] [id number] [address] [place] [address] Jan, [facility] [address] [facility] [place] [id number] [address] [place] [address] Jan, [facility] [address] [facility] [place] [id number] [address] [place] [address] Dec, [facility] [address] [id number] [address] [place] [address] Dec, [facility] [address] [facility] [place] [id number] [address] [place] [address] Dec, [facility] [address] [facility] [place] [id number] [address] [place] [address] Dec, [facility] [address] [facility] [place] [id number] [address] [place] [address] Nov, [facility] [address] [id number] [address] [place] [address], [place] [address] Nov, [facility] [address] [id number] [address] [place] [address], [place] [address] Nov, [facility] [address] [id number] [address] [place] [address], [place] [address] Nov, [facility] [address] [id number] [address] [place] [address], [place] [address] Nov, [facility] [address] [id number] [address] [place] [address], [place] [address] Nov, [facility] [address] [id number] [address] [place] [address], [place] [address] Oct, [facility] [address] [id number] [address] [place] [address], [place] [address] Oct, [facility] [address] [id number] [address] [place] [address], [place] [address] Oct, [facility] [address] [id number] [address] [place] [address], [place] [address] Oct, [facility] [address] [id number] [address] [place] [address], [place] [address] Oct, [facility] [address] [id number] [address] [place] [address], [place] [address] Oct, [facility] [address] [id number] [address] [place] [address], [place] [address] Sep, [facility] [address] [id number] [address] [place] [address], [place] [address] Sep, [facility] [address] [id number] [address] [place] [address], [place] [address] Sep, [facility] [address] [id number] [address] [place] [address], [place] [address] Sep, [facility] [address] [id number] [address] [place] [address] Aug, [facility] [address] [id number] [address] [place] [address], [place] [address] Aug, [facility] [address] [id number] [address] [place] [address], [place] [address] Apr, [facility] [address] [id number] [address] [place] [address], [place] [address] Apr, [facility] [address] [id number] [address] [place] [address], [place] [address] Apr, [facility] [address] [id number] [address] [place] [address], [place] [address] Apr, [facility] [address] [id number] [address] [place] [address], [place] [address] Apr, [facility] [address] [id number] [address] [place] [address], [place] [address] Apr, [facility] [address] [id number] [address] [place] [address], [place] [address] March, [facility] [address] [id number] [address] [place] [address], [place] [address] March, [facility] [address] [id number] [address] [place] [address], [place] [address] Dec, [facility] [address] [id number] [address] [place] [address], [place] [address] Dec, [facility] [address] [id number] [address] [place] [address], [place] [address] Sep, [facility] [address] [id number] [address] [place] [address], [place] [address] Sep, [facility] [address] [id number] [address] [place] [address], [place] [address] Aug, [facility] [address] [id number] [address] [place] [address], [place] [address] Aug, [facility] [address] [id number] [address] [place] [address], [place] [address] Aug, 2012 [facility] [address] [id number] [address] [place] [address], [place] [address] Aug, [facility] [address] [id number] [address] [place] [address], [place] [address] Aug, 2012 [facility] [address] [id number] [address] [place] [address], [place] [address] Aug, 2012 [facility] [address] [id number] [address] [place] [address], [place] [address] Aug, [facility] [address] [id number] [address] [place] [address], [place] [address] Aug, [facility] [address] [id number] [address] [place] [address], [place] [address] Aug, [facility] [address] [id number] [address] [place] [address], [place] [address] Aug, [facility] [address] [id number] [address] [place] [address], [place] [address] Jul, [facility] [address] [id number] [address] [place] [address], [place] [address] Jul, [facility] [address] [id number] [address] [place] [address], [place] [address] Jul, [facility] [address] [id number] [address] [place] [address], [place] [address] Jun, [facility] [address] [id number] [address] [place] [address], [place] [address] May, [facility] [address] [id number] [address] [place] [address], [place] [address] May, [facility] [address] [id number] [address] [place] [address], [place] [address] May, [facility] [address] [id number] [address] [place] [address], [place] [address] Apr, [facility] [address] [id number] [address] [place] [address], [place] [address] March, [facility] [address] [id number] [address] [place] [address], [place] [address] March, [facility] [address] [id number] [address] [place] [address], [place] [address] Feb, [facility] [address] [id number] [address] [place] [address], [place] [address] Feb, [facility] [address] [id number] [address] [place] [address], [place] [address] Feb, [facility] [address] [id number] [address] [place] [address], [place] [address] Feb, [facility] [address] [id number] [address] [place] [address], [place] [address] Jan, [facility] [address] [id number] [address] [place] [address], [place] [address] Jan, [facility] [address] [id number] [address] [place] [address], [place] [address] Jan, [facility] [address] [id number] [address] [place] [address], [place] [address] Jan, [facility] [address] [id number] [address] [place] [address], [place] [address] Dec, [facility] [address] [id number] [address] [place] [address], [place] [address] Dec, [facility] [address] [id number] [address] [place] [address], [place] [address] Dec, [facility] [address] [id number] [address] [place] [address], [place] [address] Nov, [facility] [address] [id number] [address] [place] [address], [place] [address] Nov, [facility] [address] [id number] [address] [place] [address], [place] [address] Nov, [facility] [address] [id number] [address] [place] [address], [place] [address] Nov, [facility] [address] [id number] [address] [place] [address], [place] [address] Oct, [facility] [address] [id number] [address] [place] [address], [place] [address] Oct, [facility] [address] [id number] [address] [place] [address], [place] [address] Oct, [facility] [address] [id number] [address] [place] [address], [place] [address] Oct, [facility] [address] [id number] [address] [place] [address], [place] [address] Sep, [facility] [address] [id number] [address] [place] [address], [place] [address] Sep, [facility] [address] [id number] [address] [place] [address], [place] [address] Sep, [facility] [address] [id number] [address] [place] [address], [place] [address] Sep, [facility] [address] [id number] [address] [place] [address], [place] [address] Aug, [facility] [address] [id number] [address] [place] [address], [place] [address] Aug, [facility] [address] [id number] [address] [place] [address], [place] [address] Aug, [facility] [address] [id number] [address] [place] [address], [place] [address] Jul, [facility] [facility] [address] [id number] [address] [place] [address], [place] [address] Jun, [facility] [address] [id number] [address] [place] [address], [place] [address] May, [facility] [address] [id number] [address] [place] [address], [place] [address] May, [facility] [address] [id number] [address] [place] [address], [place] [address] May, [facility] [address] [id number] [address] [place] [address], [place] [address] March, [facility] [address] [id number] [address] [place] [address], [place] [address] March, [facility] [address] [id number] [address] [place] [address], [place] [address] Feb, [facility] [address] [id number] [address] [place] [address], [place] [address] Feb, [facility] [address] [id number] [address] [place] [address], [place] [address] Feb, [facility] [address] [id number] [address] [place] [address], [place] [address] Feb, [facility] [address] [id number] [address] [place] [address], [place] [address] Feb, [facility] [address] [id number] [address] [place] [address], [place] [address] Feb, [facility] [address] [id number] [address] [place] [address], [place] [address] Feb, [facility] [address] [id number] [address] [place] [address], [place] [address] Feb, [facility] [address] [id number] [address] [place] [address], [place] [address] Dec, [facility] [address] [id number] [address] [place] [address], [place] [address] Nov, [facility] [address] [id number] [address] [place] [address], [place] [address] Nov, [facility] [address] [id number] [address] [place] [address], [place] [address] 27 Nov, 2011 [facility] [address] [id number] [address] [place] [address], [place] [address] 13 Nov, 2011 [facility] [address] [id number] [address] [place] [address], [place] [address] 13 Nov, 2011 [facility] [address] [id number] [address] [place] [address], [place] [address] 12 Nov, 2011 [facility] [address] [id number] [address] [place] [address], [place] [address] 14 Oct, 2011 [facility] [address] [id number] [address] [place] [address], [place] [address] Sep, [facility] [address] [id number] [address] [place] [address], [place] [address] Sep, [facility] [address] [id number] [address] [place] [address], [place] [address] Sep, [facility] [address] [id number] [address] [place] [address], [place] [address] Sep, [facility] [address] [id number] [address] [place] [address], [place] [address] Aug, [facility] [address] [id number] [address] [place] [address], [place] [address] 24 Aug, 2011 [facility] [address] [id number] [address] [place] [address], [place] [address] Aug, [facility] [address] [id number] [address] [place] [address], [place] [address] 20 Aug, 2011 [facility] [address] [id number] [address] [place] [address], [place] [address] Aug, [facility] [address] [id number] [address] [place] [address], [place] [address] Aug, [facility] [address] [id number] [address] [place] [address], [place] [address] 17 Aug, 2011 [facility] [address] [facility] [place] [id number] [address] [place] [address] Aug, [facility] [address] [facility] [place] [id number] [address] [place] [address] Aug, [facility] [address] [facility] [place] [id number] [address] [place] [address] Jul, [facility] [address] [facility] [place] [id number] [address] [place] [address] May, IMMUNIZATIONS No Known Immunizations SOCIAL HISTORY Never Assessed REASON FOR VISIT PALS PLAN OF CARE VITAL SIGNS MEDICATIONS Medication Instructions Dosage Frequency Start Date End Date Duration S pratimaus Levothyroxine Sodium 125 MCG Orally Once a day 1 tablet 24h 90 days Active RESULTS No Results PROCEDURES No [...]
--- OUTSIDE RECORDS SUMMARY | 2020-02-07 09:22 | XMS REPORT ---
Author Author BRIDGETTEBritton [facility] Address [address] [place] [address] Care Team Providers Care Magazine Grinder Loader Name Role Phone BRIDGETTE, XAVIER Unavailable PROBLEMS Type Condition ICD9-CM Code KRA36-CL Code Onset Dates Condition S tatus SNOMED Code Problem Tingling in extremities R20.2 Active 29332354 Problem Generalized anxiety disorder F41.1 A ctive 84124880 Problem Personality disorder in adult F60.9 Active 07206712 Problem Hypothyroidism (acquired) E03.9 Acti ve 884005439 Problem Depression, unspecified depression type F32.9 Active 52468912 Problem Gastroesophageal reflux disease without esophagitis K21.9 Active 392545079 Problem Drug-induced erectile dysfunction N52.2 Active 386175929 Problem Major depressive disorder, recurrent, moderate F33 .1 Active 47457585 Problem Primary insomnia F51.01 Active 397 2004 Problem Acute left-sided low back pain with left-sided sciatica M54.42 Active 020960015 Problem 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 Active 439551305 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 29694933 Problem Insomnia, unspecified type G47.00 Act mary 178453974 Problem Gastroesophageal reflux disease, esophagitis pre sence not specified K21.9 Active 700378629 Problem Anxiety F41.9 Active 69762636 Problem Acquired hypothyroidism E03.9 Active 092111947 Problem Secondary hypertension I15.9 Active 37648854 Problem Acute eczema L30.9 Active 8822475 02 Problem Hypercholesterolemia E78.0 Active 34537999 Problem Environmental allergies Z91.09 Active 170909443 ALLERGIES No Information ENCOUNTERS Encounter Location Date Diagnosis [facility] [address] [facility] [id number] [address] [place] [phone] Sep, [facility] [address] [facility] [id number] [address] [place] [phone] Aug, [facility] [address] [facility] [id number] [address] [place] [phone] Jul, Generalized anxiety disorder F41.1 [facility] [address] [facility] [id number] [address] [place] [phone] Jul, [facility] [address] [facility] [id number] [address] [place] [id number] Jul, Acquired hypothyroidism E03. 9 [facility] [address] [facility] [id number] [address] [place] [phone] 10 Jul, 2018 Generalized anxiety disorder F41.1 [place] [address] [place] [id number] [place] [phone] 04 Jul, 2018 Generalized anxiety disorder F41.1 ; Major depressive disorder, recurrent, moderate F33.1 and Personality disorder in adult F60.9 [facility] [address] [place] [id number] [place] [phone] Jun, Generalized anxiety disorder F41.1 ; Major depressive disorder, recurrent, moderate F33.1 ; Primary insomnia F51.01 and Personality disorder in adult F60.9 [place] [address] [place] [id number] [address] [place] [address] May, Acquired hypothyroidism E03. 9 [facility] [address] [facility] [id number] [address] [place] [phone] May, Hypothyroidism (acquired) E0 3.9 and Gastroesophageal reflux disease without esophagitis K21.9 [facility] [address] [facility] [id number] [address] [place] [address] Apr, [facility] [address] [facility] [id number] [address] [place] [address] Apr, Skin infection L08.9 [facility] [address] [facility] [id number] [address] [place] [phone] 05 Apr, 2018 Generalized anxiety disorder F41.1 ; Major depressive disorder, recurrent, moderate F33.1 ; Primary insomnia F51.01 and Personality disorder in adult F60.9 [facility] [address] [facility] [id number] [address] [place] [phone] March, Generalized anxiety disorder F41.1 ; Major depressive disorder, recurrent, moderate F33.1 and Personality disorder in adult F60.9 [facility] [address] [facility] [id number] [address] [place] [phone] Feb, [facility] [address] [facility] [id number] [address] [place] [id number] Dec, Generalized anxiety disorder F41.1 ; Major depressive disorder, recurrent, moderate F33.1 and Personality disorder in adult F60.9 [facility] [address] [facility] [id number] [address] [place] [id number] Dec, Acute left-sided low back pa in with left-sided sciatica M54.42 [facility] [address] [facility] [id number] [address] [place] [phone] Nov, [facility] [address] [facility] [id number] [address] [place] [phone] Oct, Generalized anxiety disorder F41.1 ; Major depressive disorder, recurrent, moderate F33.1 and Personality disorder in adult F60.9 [facility] [address] [facility] [id number] [address] [place] [phone] 24 Sep, 2017 Acquired hypothyroidism E03. 9 ; Hypercholesterolemia E78.0 ; Generalized anxiety disorder F41.1 and Drug-induced erectile dysfunction N52.2 [facility] [address] [facility] [id number] [address] [place] [phone] Sep, [facility] [address] [facility] [id number] [address] [place] [phone] 17 Sep, 2017 Acquired hypothyroidism E03. 9 ; Hypercholesterolemia E78.0 ; Generalized anxiety disorder F41.1 and Drug-induced erectile dysfunction N52.2 [facility] [address] [facility] [id number] [address] [place] [phone] 07 Sep, 2017 Generalized anxiety disorder F41.1 ; Major depressive disorder, recurrent, moderate F33.1 and Personality disorder in adult F60.9 [facility] [address] [id number] [address] [place] [id number] Aug, Dental examination Z01.20 [facility] [address] [id number] [address] [place] [id number] Aug, Dental caries K02.9 [facility] [address] [id number] [address] [place] [address] Aug, [facility] [address] [id number] [address] [place] [id number] Aug, Dental examination Z01.20 [facility] [address] [id number] [address] [place] [address] Jul, Major depressive disorder, r ecurrent, moderate F33.1 [facility] [address] [facility] [id number] [address] [place] [phone] Jul, Generalized anxiety disorder F41.1 ; Major depressive disorder, recurrent, moderate F33.1 and Personality disorder in adult F60.9 [facility] [address] [facility] [id number] [address] [place] [phone] Jul, Generalized anxiety disorder F41.1 ; Major depressive disorder, recurrent, moderate F33.1 and Personality disorder in adult F60.9 [facility] [address] [facility] [id number] [address] [place] [phone] Jun, Generalized anxiety disorder F41.1 ; Major depressive disorder, recurrent, moderate F33.1 and Personality disorder in adult F60.9 [facility] [address] [id number] [address] [place] [phone] Apr, Generalized anxiety disorder F41.1 ; Major depressive disorder, recurrent, moderate F33.1 and Personality disorder in adult F60.9 [facility] [address] [facility] [id number] [address] [place] [phone] March, Acquired hypothyroidism E03. 9 [facility] [address] [address] March, Acquired hypothyroidism E03. 9 and Left lower quadrant pain R10.32 [place] [address] [address] March, Hypercholesterolemia E78.0 ; Acquired hypothyroidism E03.9 ; Insomnia, unspecified type G47.00 ; Secondary hypertension I15.9 ; Gastroesophageal reflux disease, esophagitis presence not specified K21.9 ; Tingling in extremities R20.2 ; Environmental allergies Z91.09 ; Depression, unspecified depression type F32.9 and Left lower quadrant pain R10.32 [place] [address] [address] Feb, High risk sexual behavior Z7 2.51 [place] [address] [address] Feb, Major depressive disorder, r ecurrent, moderate F33.1 and Generalized anxiety disorder F41.1 [place] [address] [address] Dec, Major depressive disorder, r ecurrent, moderate F33.1 [place] [address] [address] Dec, [place] [address] [address] 16 Dec, 2016 Acquired hypothyroidism E03. 9 and High risk sexual behavior Z72.51 [place] [address] [address] 07 Dec, 2016 Major depressive disorder, r ecurrent, moderate F33.1 and Generalized anxiety disorder F41.1 [place] [address] [address] 07 Dec, 2016 Acquired hypothyroidism E03. 9 ; Secondary hypertension I15.9 and Acute eczema L30.9 [place] [address] [address] Nov, Acquired hypothyroidism E03. 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 ; Hypercholesterolemia E78.0 ; Gastroesophageal reflux disease, esophagitis presence not specified K21.9 ; Anxiety F41.9 and Secondary hypertension I15.9 [place] [address] [place] [id number] [place] [phone] Oct, Major depressive disorder, r ecurrent, moderate F33.1 and Generalized anxiety disorder F41.1 [place] [address] [address] Aug, [place] [address] [address] Aug, Insomnia, unspecified type G 47.00 ; Acquired hypothyroidism E03.9 ; Hypercholesterolemia E78.0 and Gastroesophageal reflux disease, esophagitis presence not specified K21.9 [place] [address] [address] Jul, [place] [address] [address] Jul, Major depressive disorder, r ecurrent, in partial remission F33.41 and Generalized anxiety disorder F41.1 [place] [address] [address] Jun, [place] [address] [address] Jun, Cervical pain (neck) M54.2 a nd Cervical neuropathic pain M54.12 [place] [address] [place] [id number] [place] [address] Apr, Insomnia, unspecified type G 47.00 ; Acquired hypothyroidism E03.9 ; Hypercholesterolemia E78.0 ; 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 ; Depression, unspecified depression type F32.9 ; 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 ; Gastroesophageal reflux disease, esophagitis presence not specified K21.9 ; Anxiety F41.9 ; Secondary hypertension I15.9 and Post- nasal drainage R09.82 [place] [address] [address] Apr, [facility] [address] [address] March, [facility] [address] [address] March, Unspecified hypothyroidism 2 44.9 and HTN (hypertension) 401.9 [place] [address] [address] March, [place] [address] [address] Dec, [place] [address] [address] Nov, [place] [address] [address] Sep, Generalized anxiety disorder F41.1 and Major depressive disorder, recurrent, in partial remission F33.41 [place] [address] [address] Jun, Unspecified hypothyroidism 2 44.9 ; Sciatica 724.3 ; Major depressive disorder, recurrent episode, in partial or unspecified remission 296.35 ; Combined hyperlipidemia 272.2 ; HTN (hypertension) 401.9 ; Hidrosis 780.8 ; Cat allergies 477.8 and Environmental allergies V15.09 [place] [address] [address] Jun, Major depressive disorder, r ecurrent episode, in partial or unspecified remission 296.35 ; Insomnia, unspecified 780.52 and Generalized anxiety disorder 300.02 [place] [address] [address] May, [place] [address] [place] [address] Apr, [facility] [address] [id number] [address] [place] [address] Apr, Closed mallet fracture of di stal phalanx of ring finger 816.02 [facility] [address] [id number] [address] [place] [address] March, Depression, major, recurrent , moderate 296.32 ; Generalized anxiety disorder 300.02 and Borderline personality disorder 301.83 [facility] [address] [id number] [address] [place] [phone] Feb, [facility] [address] [id number] [address] [place] [phone] Feb, [facility] [address] [id number] [address] [place] [phone] Jan, [facility] [address] [id number] [address] [place] [address] Jan, [facility] [address] [id number] [address] [place] [phone] Jan, [facility] [address] [id number] [address] [place] [phone] Jan, [facility] [address] [facility] [id number] [address] [place] [phone] Jan, [facility] [address] [id number] [address] [place] [phone] Jan, [facility] [address] [id number] [address] [place] [phone] Dec, [facility] [address] [id number] [address] [place] [phone] Dec, [facility] [address] [id number] [address] [place] [phone] Dec, [facility] [address] [id number] [address] [place] [phone] Dec, [facility] [address] [id number] [address] [place] [address], [place] [address] Nov, [facility] [address] [id number] [address] [place] [address], [place] [address] Nov, [facility] [address] [id number] [address] [place] [address], [place] [address] Nov, [facility] [address] [id number] [address] [place] [address], [place] [address] Nov, [facility] [address] [id number] [address] [place] [address], [place] [address] Nov, [facility] [address] [id number] [address] [place] [address], [place] [address] Nov, [facility] [address] [id number] [address] [place] [address], [place] [address] Oct, [facility] [address] [id number] [address] [place] [address], [place] [address] Oct, [facility] [address] [id number] [address] [place] [address], [place] [address] Oct, [facility] [address] [id number] [address] [place] [address], [place] [address] Oct, [facility] [address] [id number] [address] [place] [address], [place] [address] Oct, [facility] [address] [id number] [address] [place] [address], [place] [address] Oct, [facility] [address] [id number] [address] [place] [address], [place] [address] Sep, [facility] [address] [id number] [address] [place] [address], [place] [address] Sep, [facility] [address] [id number] [address] [place] [address], [place] [address] Sep, [facility] [address] [id number] [address] [place] [address], [place] [address] Sep, [facility] [address] [id number] [address] [place] [address], [place] [address] Aug, [facility] [address] [id number] [address] [place] [address], [place] [address] Aug, [facility] [address] [id number] [address] [place] [address], [place] [address] Apr, [facility] [address] [id number] [address] [place] [address], [place] [address] Apr, [facility] [address] [id number] [address] [place] [address], [place] [address] Apr, [facility] [address] [id number] [address] [place] [address], [place] [address] Apr, [facility] [address] [id number] [address] [place] [address], [place] [address] Apr, [facility] [address] [id number] [address] [place] [address], [place] [address] Apr, [facility] [address] [id number] [address] [place] [address], [place] [address] March, [facility] [address] [id number] [address] [place] [address], [place] [address] March, [facility] [address] [id number] [address] [place] [address], [place] [address] Dec, [facility] [address] [id number] [address] [place] [address], [place] [address] Dec, [facility] [address] [id number] [address] [place] [address], [place] [address] Sep, [facility] [address] [id number] [address] [place] [address], [place] [address] Sep, [facility] [address] [id number] [address] [place] [address], [place] [address] Aug, [facility] [address] [id number] [address] [place] [address], [place] [address] Aug, [facility] [address] [id number] [address] [place] [address], [place] [address] Aug, [facility] [address] [id number] [address] [place] [address], [place] [address] Aug, 2012 [facility] [address] [id number] [address] [place] [address], [place] [address] Aug, 2012 [facility] [address] [id number] [address] [place] [address], [place] [address] Aug, [facility] [address] [id number] [address] [place] [address], [place] [address] Aug, [facility] [address] [id number] [address] [place] [address], [place] [address] Aug, [facility] [address] [id number] [address] [place] [address], [place] [address] Aug, [facility] [address] [id number] [address] [place] [address], [place] [address] Aug, [facility] [address] [id number] [address] [place] [address], [place] [address] Jul, [facility] [address] [id number] [address] [place] [address], [place] [address] Jul, [facility] [address] [id number] [address] [place] [address], [place] [address] 05 Jul, 2013 [facility] [address] [id number] [address] [place] [address], [place] [address] Jun, [facility] [address] [id number] [address] [place] [address], [place] [address] May, [facility] [address] [id number] [address] [place] [address], [place] [address] May, [facility] [address] [id number] [address] [place] [address] [place] [address] May, [facility] [address] [id number] [address] [place] [address], [place] [address] Apr, [facility] [address] [id number] [address] [place] [address], [place] [address] March, [facility] [address] [id number] [address] [place] [address], [place] [address] March, [facility] [address] [id number] [address] [place] [address], [place] [address] Feb, [facility] [address] [id number] [address] [place] [address], [place] [address] Feb, [facility] [address] [id number] [address] [place] [address], [place] [address] Feb, [facility] [address] [id number] [address] [place] [address], [place] [address] Feb, [facility] [address] [id number] [address] [place] [address], [place] [address] Jan, [facility] [address] [id number] [address] [place] [address], [place] [address] Jan, [facility] [address] [id number] [address] [place] [address], [place] [address] Jan, [facility] [address] [id number] [address] [place] [address], [place] [address] Jan, [facility] [address] [id number] [address] [place] [address], [place] [address] Dec, [facility] [address] [id number] [address] [place] [address], [place] [address] Dec, [facility] [address] [id number] [address] [place] [address], [place] [address] Dec, [facility] [address] [id number] [address] [place] [address], [place] [address] Nov, [facility] [address] [id number] [address] [place] [address], [place] [address] Nov, [facility] [address] [id number] [address] [place] [address], [place] [address] Nov, [facility] [address] [id number] [address] [place] [address], [place] [address] Nov, [facility] [address] [id number] [address] [place] [address], [place] [id number] Oct, [facility] [address] [id number] [address] [place] [address], [place] [id number] Oct, [facility] [address] [id number] [address] [place] [address], [place] [id number] Oct, [facility] [address] [id number] [address] [place] [address], [place] [id number] Oct, [facility] [address] [id number] [address] [place] [address], [place] [address] Sep, [facility] [address] [id number] [address] [place] [address], [place] [id number] Sep, [facility] [address] [id number] [address] [place] [address], [place] [id number] Sep, [facility] [address] [id number] [address] [place] [address], [place] [id number] Sep, [facility] [address] [id number] [address] [place] [address], [place] [address] Aug, [facility] [address] [id number] [address] [place] [address], [place] [id number] Aug, [facility] [address] [id number] [address] [place] [address], [place] [id number] Aug, [facility] [address] [id number] [address] [place] [address], [place] [id number] Jul, [facility] [address] [id number] [address] [place] [address], [place] [id number] Jun, [facility] [address] [id number] [address] [place] [address], [place] [id number] May, [facility] [address] [address] [id number] [address] [place] [address], [place] [id number] May, [facility] [address] [id number] [address] [place] [address], [place] [id number] May, [facility] [address] [id number] [address] [place] [address], [place] [id number] March, [facility] [address] [id number] [address] [place] [address], [place] [id number] March, [facility] [address] [id number] [address] [place] [address], [place] [id number] Feb, [facility] [address] [id number] [address] [place] [address], [place] [id number] Feb, [facility] [address] [id number] [address] [place] [address], [place] [id number] Feb, [facility] [address] [id number] [address] [place] [address], [place] [id number] Feb, [facility] [address] [id number] [address] [place] [address], [place] [address] Feb, [facility] [address] [id number] [address] [place] [address], [place] [address] Feb, [facility] [address] [id number] [address] [place] [address], [place] [address] Feb, [facility] [address] [id number] [address] [place] [address], [place] [address] Feb, [facility] [address] [id number] [address] [place] [address], [place] [id number] Dec, [facility] [address] [id number] [address] [place] [address], [place] [id number] Nov, [facility] [address] [id number] [address] [place] [address], [place] [id number] 2011 [facility] [address] [id number] [address] [place] [address], [place] [id number] 27 Nov, 2011 [facility] [address] [id number] [address] [place] [address], [place] [id number] 13 Nov, 2011 [facility] [address] [id number] [address] [place] [address], [place] [id number] 13 Nov, 2011 [facility] [address] [id number] [address] [place] [address], [place] [id number] 12 Nov, 2011 [facility] [address] [id number] [address] [place] [address], [place] [id number] Oct, [facility] [address] [id number] [address] [place] [address], [place] [id number] Sep, [facility] [address] [id number] [address] [place] [address], [place] [id number] Sep, [facility] [address] [id number] [address] [place] [address], [place] [id number] Sep, [facility] [address] [id number] [address] [place] [address], [place] [id number] Sep, [facility] [address] [id number] [address] [place] [address], [place] [id number] Aug, [facility] [address] [id number] [address] [place] [address], [place] [id number] Aug, [facility] [address] [id number] [address] [place] [address], [place] [address] Aug, [facility] [address] [id number] [address] [place] [address], [place] [id number] Aug, [facility] [address] [id number] [address] [place] [address], [place] [id number] Aug, [facility] [address] [id number] [address] [place] [address], [place] [id number] Aug, [facility] [address] [facility] [id number] [address] [place] [id number] Aug, [facility] [address] [facility] [id number] [address] [place] [id number] Aug, [facility] [address] [facility] [id number] [address] [place] [id number] Aug, [facility] [address] [facility] [id number] [address] [place] [id number] Jul, [facility] [address] [facility] [id number] [address] [place] [id number] May, IMMUNIZATIONS No Known Immunizations SOCIAL HISTORY Never Assessed REASON FOR VISIT Medication refill request PLAN OF CARE VITAL SIGNS MEDICATIONS Medication Instructions Dosage Frequency Start Date End Date Duration S tatus Cymbalta 60 mg Orally twice a day 1 capsule 12h March, 14 days Active RESULTS No Results PROCEDURES No [...]
--- OUTSIDE RECORDS SUMMARY | 2020-02-07 09:23 | XMS REPORT ---
Author Author BRIDGETTEBritton [facility] Address [address] [place] [address] Care Team Providers Care Prime Minister Name Role Phone BRIDGETTE, XAVIER Unavailable PROBLEMS Type Condition ICD9-CM Code [id number] Code Onset Dates Condition S tatus SNOMED Code Problem Tingling in extremities R20.2 Active 53238441 Problem Generalized anxiety disorder F41.1 A ctive 75515128 Problem Personality disorder in adult F60.9 Active 90072437 Problem Hypothyroidism (acquired) E03.9 Acti ve 560717519 Problem Depression, unspecified depression type F32.9 Active 26090426 Problem Gastroesophageal reflux disease without esophagitis K21.9 Active 474150199 Problem Drug-induced erectile dysfunction N52.2 Active 275830598 Problem Major depressive disorder, recurrent, moderate F33 .1 Active 99074963 Problem Primary insomnia F51.01 Active 397 2004 Problem Acute left-sided low back pain with left-sided sciatica M54.42 Active 049429387 Problem 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 Active 697967331 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 73918933 Problem Insomnia, unspecified type G47.00 Act mary 957623734 Problem Gastroesophageal reflux disease, esophagitis pre sence not specified K21.9 Active 382320472 Problem Anxiety F41.9 Active 82211011 Problem Acquired hypothyroidism E03.9 Active 071192803 Problem Secondary hypertension I15.9 Active 40929678 Problem Acute eczema L30.9 Active 3259794 02 Problem Hypercholesterolemia E78.0 Active 11491999 Problem Environmental allergies Z91.09 Active 061090173 ALLERGIES Substance Reaction Event Type Date Status Amoxicillin vomiting Drug Allergy Jul, Active ENCOUNTERS Encounter Location Date Diagnosis [facility] [address] [facility] [address] [id number] [address] [place] [address] Sep, [facility] [address] [place] [id number] [address] [place] [address] Jul, Generalized anxiety disorder F41.1 [facility] [address] [facility] [id number] [place] [address] Jul, [facility] [address] [facility] [id number] [place] [address] Jul, Acquired hypothyroidism E03. 9 [facility] [address] [facility] [id number] [place] [address] Jul, Generalized anxiety disorder F41.1 [place] [address] [facility] [id number] [place] [address] 04 Jul, 2018 Generalized anxiety disorder F41.1 ; Major depressive disorder, recurrent, moderate F33.1 and Personality disorder in adult F60.9 [place] [address] [facility] [id number] [place] [address] Jun, Generalized anxiety disorder F41.1 ; Major depressive disorder, recurrent, moderate F33.1 ; Primary insomnia F51.01 and Personality disorder in adult F60.9 [place] [address] [facility] [id number] [place] [address] May, Acquired hypothyroidism E03. 9 [facility] [address] [facility] [id number] [place] [address] May, Hypothyroidism (acquired) E0 3.9 and Gastroesophageal reflux disease without esophagitis K21.9 [facility] [address] [facility] [id number] [place] [address] Apr, [facility] [address] [facility] [id number] [place] [address] Apr, Skin infection L08.9 [facility] [address] [facility] [id number] [place] [address] Apr, Generalized anxiety disorder F41.1 ; Major depressive disorder, recurrent, moderate F33.1 ; Primary insomnia F51.01 and Personality disorder in adult F60.9 [facility] [address] [facility] [id number] [place] [address] March, Generalized anxiety disorder F41.1 ; Major depressive disorder, recurrent, moderate F33.1 and Personality disorder in adult F60.9 [facility] [address] [facility] [id number] [place] [address] Feb, [facility] [address] [facility] [id number] [place] [address] Dec, Generalized anxiety disorder F41.1 ; Major depressive disorder, recurrent, moderate F33.1 and Personality disorder in adult F60.[address] [facility] [address] [facility] [id number] [place] [address] Dec, Acute left-sided low back pa in with left-sided sciatica M54.42 [facility] [address] [facility] [id number] [place] [address] Nov, [facility] [address] [facility] [id number] [place] [address] Oct, Generalized anxiety disorder F41.1 ; Major depressive disorder, recurrent, moderate F33.1 and Personality disorder in adult F60.9 [facility] [address] [facility] [id number] [place] [address] Sep, Acquired hypothyroidism E03. 9 ; Hypercholesterolemia E78.0 ; Generalized anxiety disorder F41.1 and Drug-induced erectile dysfunction N52.2 [facility] [address] [facility] [id number] [place] [address] Sep, [facility] [address] [facility] [id number] [place] [address] Sep, Acquired hypothyroidism E03. 9 ; Hypercholesterolemia E78.0 ; Generalized anxiety disorder F41.1 and Drug-induced erectile dysfunction N52.2 [facility] [address] [facility] [id number] [place] [address] 07 Sep, 2017 Generalized anxiety disorder F41.1 ; Major depressive disorder, recurrent, moderate F33.1 and Personality disorder in adult F60.9 [facility] [address] [id number] [address] [place] [id number] Aug, Dental examination Z01.20 [facility] [address] [id number] [address] [place] [id number] Aug, Dental caries K02.9 [facility] [address] [id number] [address] [place] [address] Aug, [facility] [address] [id number] [address] [place] [address] [id number] Aug, Dental examination Z01.20 [facility] [address] [id number] [address] [place] [address] Jul, Major depressive disorder, r ecurrent, moderate F33.1 [facility] [address] [id number] [address] [place] [address] Jul, Generalized anxiety disorder F41.1 ; Major depressive disorder, recurrent, moderate F33.1 and Personality disorder in adult F60.9 [facility] [address] [id number] [address] [place] [address] Jul, Generalized anxiety disorder F41.1 ; Major depressive disorder, recurrent, moderate F33.1 and Personality disorder in adult F60.9 [facility] [address] [id number] [address] [place] [address] Jun, Generalized anxiety disorder F41.1 ; Major depressive disorder, recurrent, moderate F33.1 and Personality disorder in adult F60.9 [facility] [address] [id number] [address] [place] [address] Apr, Generalized anxiety disorder F41.1 ; Major depressive disorder, recurrent, moderate F33.1 and Personality disorder in adult F60.9 [facility] [address] [id number] [address] [place] [address] March, Acquired hypothyroidism E03. 9 [facility] [address] [id number] [address] [place] [address] March, Acquired hypothyroidism E03. 9 and Left lower quadrant pain R10.32 [place] [address] [address] March, Hypercholesterolemia E78.0 ; Acquired hypothyroidism E03.9 ; Insomnia, unspecified type G47.00 ; Secondary hypertension I15.9 ; Gastroesophageal reflux disease, esophagitis presence not specified K21.9 ; Tingling in extremities R20.2 ; Environmental allergies Z91.09 ; Depression, unspecified depression type F32.9 and Left lower quadrant pain R10.32 [place] [address] [address] Feb, High risk sexual behavior Z7 2.51 [place] [address] [address] Feb, Major depressive disorder, r ecurrent, moderate F33.1 and Generalized anxiety disorder F41.1 [place] [address] [address] Dec, Major depressive disorder, r ecurrent, moderate F33.1 [place] [address] [address] Dec, [place] [address] [address] Dec, Acquired hypothyroidism E03. 9 and High risk sexual behavior Z72.51 [place] [address] [address] Dec, Major depressive disorder, r ecurrent, moderate F33.1 and Generalized anxiety disorder F41.[address] [address] Dec, Acquired hypothyroidism E03. 9 ; Secondary hypertension I15.9 and Acute eczema L30.9 [place] [address] [address] Nov, Acquired hypothyroidism E03. 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 ; Hypercholesterolemia E78.0 ; Gastroesophageal reflux disease, esophagitis presence not specified K21.9 ; Anxiety F41.9 and Secondary hypertension I15.9 [place] [address] [address] Oct, Major depressive disorder, r ecurrent, moderate F33.1 and Generalized anxiety disorder F41.1 [place] [address] [address] Aug, [place] [address] [address] Aug, Insomnia, unspecified type G 47.00 ; Acquired hypothyroidism E03.9 ; Hypercholesterolemia E78.0 and Gastroesophageal reflux disease, esophagitis presence not specified K21.9 [place] [address] [address] Jul, [place] [address] [address] Jul, Major depressive disorder, r ecurrent, in partial remission F33.41 and Generalized anxiety disorder F41.1 [place] [address] [address] Jun, [place] [address] [address] Jun, Cervical pain (neck) M54.2 a nd Cervical neuropathic pain M54.12 [place] [address] [address] Apr, Insomnia, unspecified type G 47.00 ; Acquired hypothyroidism E03.9 ; Hypercholesterolemia E78.0 ; 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 ; Depression, unspecified depression type F32.9 ; 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 ; Gastroesophageal reflux disease, esophagitis presence not specified K21.9 ; Anxiety F41.9 ; Secondary hypertension I15.9 and Post- nasal drainage R09.82 [facility] [address] [place] [place] [id number] [address] [place] [address] Apr, [facility] [address] [place] [id number] [place] [address] March, [facility] [address] [place] [id number] [place] [address] March, Unspecified hypothyroidism 2 44.9 and HTN (hypertension) 401.9 [facility] [address] [place] [id number] [address] [place] [address] March, [facility] [address] [address] Dec, [facility] [address] [place] [id number] [place] [address] Nov, [facility] [address] [address] Sep, Generalized anxiety disorder F41.1 and Major depressive disorder, recurrent, in partial remission F33.41 [place] [address] [address] Jun, Unspecified hypothyroidism 2 44.9 ; Sciatica 724.3 ; Major depressive disorder, recurrent episode, in partial or unspecified remission 296.35 ; Combined hyperlipidemia 272.2 ; HTN (hypertension) 401.9 ; Hidrosis 780.8 ; Cat allergies 477.8 and Environmental allergies V15.09 [facility] [address] [place] [id number] [address] [place] [address] Jun, Major depressive disorder, r ecurrent episode, in partial or unspecified remission 296.35 ; Insomnia, unspecified 780.52 and Generalized anxiety disorder 300.02 [facility] [address] [place] [place] [id number] [address] [place] [address] May, [facility] [address] [place] [id number] [place] [address] Apr, [place] [address] [id number] [address] [place] [address] Apr, Closed mallet fracture of di stal phalanx of ring finger 816.02 [facility] [address] [id number] [address] [place] [address] March, Depression, major, recurrent , moderate 296.32 ; Generalized anxiety disorder 300.02 and Borderline personality disorder 301.83 [facility] [address] [id number] [address] [place] [address] Feb, [facility] [address] [facility] [id number] [place] [address] Feb, [facility] [address] [id number] [address] [place] [address] Jan, [facility] [address] [facility] [id number] [place] [address] Jan, [facility] [address] [facility] [id number] [place] [address] Jan, [facility] [address] [id number] [address] [place] [address] Jan, [facility] [address] [facility] [id number] [place] [address] Jan, [facility] [address] [facility] [id number] [place] [address] Jan, [facility] [address] [id number] [address] [place] [address] Dec, [facility] [address] [id number] [address] [place] [address] Dec, [facility] [address] [facility] [id number] [place] [address] Dec, [facility] [address] [facility] [id number] [place] [address] Dec, [facility] [address] [id number] [address] [place] [address], [place] [address] 15 Nov, 2014 [facility] [address] [id number] [address] [place] [address], [place] [address] Nov, [facility] [address] [id number] [address] [place] [address], [place] [address] Nov, [facility] [address] [id number] [address] [place] [address], [place] [address] Nov, [facility] [address] [id number] [address] [place] [address], [place] [address] Nov, [facility] [address] [id number] [address] [place] [address], [place] [address] Nov, [facility] [address] [id number] [address] [place] [address], [place] [address] Oct, [facility] [address] [id number] [address] [place] [address], [place] [address] Oct, [facility] [address] [id number] [address] [place] [address], [place] [address] Oct, [facility] [address] [id number] [address] [place] [address], [place] [address] Oct, [facility] [address] [id number] [address] [place] [address], [place] [address] Oct, [facility] [address] [id number] [address] [place] [address], [place] [address] Oct, [facility] [address] [id number] [address] [place] [address], [place] [address] Sep, [facility] [address] [id number] [address] [place] [address], [place] [address] Sep, [facility] [address] [id number] [address] [place] [address], [place] [address] Sep, [facility] [address] [id number] [address] [place] [address], [place] [address] Sep, [facility] [address] [id number] [address] [place] [address], [place] [address] Aug, [facility] [address] [id number] [address] [place] [address], [place] [address] Aug, [facility] [address] [id number] [address] [place] [address], [place] [address] Apr, [facility] [address] [id number] [address] [place] [address], [place] [address] Apr, [facility] [address] [id number] [address] [place] [address], [place] [address] Apr, [facility] [address] [id number] [address] [place] [address], [place] [address] 17 Apr, 2014 [facility] [address] [id number] [address] [place] [address], [place] [address] Apr, [facility] [address] [id number] [address] [place] [address], [place] [address] Apr, [facility] [address] [id number] [address] [place] [address], [place] [address] March, [facility] [address] [id number] [address] [place] [address], [place] [address] March, [facility] [address] [id number] [address] [place] [address], [place] [address] Dec, [facility] [address] [id number] [address] [place] [address], [place] [address] Dec, [facility] [address] [id number] [address] [place] [address], [place] [address] Sep, [facility] [address] [id number] [address] [place] [address], [place] [address] Sep, [facility] [address] [id number] [address] [place] [address], [place] [address] Aug, [facility] [address] [id number] [address] [place] [address], [place] [address] Aug, [facility] [address] [id number] [address] [place] [address], [place] [address] Aug, 2012 [facility] [address] [id number] [address] [place] [address], [place] [address] Aug, 2012 [facility] [address] [id number] [address] [place] [address], [place] [address] Aug, 2012 [facility] [address] [id number] [address] [place] [address], [place] [address] Aug, 2012 [facility] [address] [id number] [address] [place] [address], [place] [address] Aug, [facility] [address] [id number] [address] [place] [address], [place] [address] Aug, [facility] [address] [id number] [address] [place] [address], [place] [address] Aug, [facility] [address] [id number] [address] [place] [address], [place] [address] Aug, [facility] [address] [id number] [address] [place] [address], [place] [address] 27 Jul, 2013 [facility] [address] [id number] [address] [place] [address], [place] [address] Jul, [facility] [address] [id number] [address] [place] [address], [place] [address] 05 Jul, 2013 [facility] [address] [id number] [address] [place] [address], [place] [address] Jun, [facility] [address] [id number] [address] [place] [address], [place] [address] May, [facility] [address] [id number] [address] [place] [address], [place] [address] May, [facility] [address] [id number] [address] [place] [address], [place] [address] May, [facility] [address] [id number] [address] [place] [address], [place] [address] Apr, [facility] [address] [id number] [address] [place] [address], [place] [address] March, [facility] [address] [id number] [address] [place] [address], [place] [address] March, [facility] [address] [id number] [address] [place] [address], [place] [address] Feb, [facility] [address] [id number] [address] [place] [address], [place] [address] Feb, [facility] [address] [id number] [address] [place] [address], [place] [address] Feb, [facility] [address] [id number] [address] [place] [address], [place] [address] Feb, [facility] [address] [id number] [address] [place] [address], [place] [address] Jan, [facility] [address] [id number] [address] [place] [address], [place] [address] Jan, [facility] [address] [id number] [address] [place] [address], [place] [address] Jan, [facility] [address] [id number] [address] [place] [address], [place] [address] Jan, [facility] [address] [id number] [address] [place] [address], [place] [address] Dec, [facility] [address] [id number] [address] [place] [address], [place] [address] Dec, [facility] [address] [id number] [address] [place] [address], [place] [address] Dec, [facility] [address] [id number] [address] [place] [address], [place] [address] Nov, [facility] [address] [id number] [address] [place] [address], [place] [address] Nov, [facility] [address] [id number] [address] [place] [address], [place] [address] Nov, [facility] [address] [id number] [address] [place] [address], [place] [address] Nov, [facility] [address] [id number] [address] [place] [address], [place] [address] Oct, [facility] [address] [id number] [address] [place] [address], [place] [address] Oct, [facility] [address] [id number] [address] [place] [address], [place] [address] Oct, [facility] [address] [id number] [address] [place] [address], [place] [address] Oct, [facility] [address] [id number] [address] [place] [address], [place] [address] Sep, [facility] [address] [id number] [address] [place] [address], [place] [address] Sep, [facility] [address] [id number] [address] [place] [address], [place] [address] Sep, [facility] [address] [id number] [address] [place] [address], [place] [address] Sep, [facility] [address] [id number] [address] [place] [address], [place] [address] Aug, [facility] [address] [id number] [address] [place] [address] Aug, [facility] [address] [id number] [address] [place] [address], [place] [address] Aug, [facility] [address] [id number] [address] [place] [address], [place] [address] Jul, [facility] [address] [id number] [address] [place] [address], [place] [address] Jun, [facility] [address] [id number] [address] [place] [address], [place] [address] May, [facility] [address] [id number] [address] [place] [address], [place] [address] May, [facility] [address] [id number] [address] [place] [address], [place] [address] May, [facility] [address] [id number] [address] [place] [address], [place] [address] March, [facility] [address] [id number] [address] [place] [address], [place] [address] March, [facility] [address] [id number] [address] [place] [address], [place] [address] Feb, [facility] [address] [id number] [address] [place] [address], [place] [address] Feb, [facility] [address] [id number] [address] [place] [address], [place] [address] Feb, [facility] [address] [id number] [address] [place] [address], [place] [address] Feb, [facility] [address] [id number] [address] [place] [address], [place] [address] Feb, [facility] [address] [id number] [address] [place] [address], [place] [address] Feb, [facility] [address] [id number] [address] [place] [address], [place] [address] Feb, [facility] [address] [id number] [address] [place] [address], [place] [address] Feb, [facility] [address] [id number] [address] [place] [address], [place] [address] Dec, [facility] [address] [id number] [address] [place] [address], [place] [address] Nov, [facility] [address] [id number] [address] [place] [address], [place] [address] Nov, [facility] [address] [id number] [address] [place] [address], [place] [address] 27 Nov, 2011 [facility] [address] [id number] [address] [place] [address], [place] [address] Nov, [facility] [address] [id number] [address] [place] [address], [place] [address] 13 Nov, 2011 [facility] [address] [id number] [address] [place] [address], [place] [address] Nov, [facility] [address] [id number] [address] [place] [address], [place] [address] Oct, [facility] [address] [id number] [address] [place] [address], [place] [address] Sep, [facility] [address] [id number] [address] [place] [address], [place] [address] Sep, [facility] [address] [id number] [address] [place] [address], [place] [address] Sep, [facility] [address] [id number] [address] [place] [address], [place] [address] Sep, [facility] [address] [id number] [address] [place] [address], [place] [address] Aug, [facility] [address] [id number] [address] [place] [address], [place] [address] Aug, [facility] [address] [id number] [address] [place] [address] Aug, [facility] [address] [id number] [address] [place] [address], [place] [address] Aug, [facility] [address] [id number] [address] [place] [address], [place] [address] Aug, [facility] [address] [id number] [address] [place] [address], [place] [address] Aug, [facility] [address] [id number] [address] [place] [address] Aug, [facility] [address] [facility] [id number] [place] [address] Aug, [facility] [address] [facility] [id number] [place] [address] Aug, [facility] [address] [facility] [id number] [place] [address] Jul, [facility] [address] [facility] [id number] [place] [address] May, IMMUNIZATIONS No Known Immunizations SOCIAL HISTORY Never Assessed REASON FOR VISIT f/u PLAN OF CARE Activity Details Follow Up 2 Months Reason: f/u VITAL SIGNS Height 68 in 2018-07-30 Weight 200.2 lbs 2018-07-30 Heart Rate 108 bpm 2018-07-30 Respiratory Rate 24 2018-07-30 BMI 30.44 kg/m2 2018-07-30 Blood pressure systolic 124 mmHg 2018-07-30 Blood pressure diastolic 72 mmHg 2018-07-30 MEDICATIONS Medication Instructions Dosage Frequency Start Date End Date Duration S tatus Levothyroxine Sodium 125 mcg 1 tablet 24h 30 Active Lipitor 10 mg Orally Once a day 1 tablet 24h Jan, Active Rexulti 1 MG Orally Once a day 1 tablet 24h Jul, Active Bactrim DS 800-160 MG Orally Twice a day 1 tablet 12h 5 days Not-Taking Pantoprazole Sodium 40 MG TAKE ONE TABLET BY MOUTH ONCE DAILY 30 Not-Taking Fish Oil 1200 MG Orally Once a day 2 capsule 24h Active Simethicone 80 MG Orally Four times a day 1 tablet after m eals and at bedtime as needed 6h May, Not-Taking Cialis 20 mg Orally Once a day 1 tablet 24h Sep, Active Multivital Active Protonix 40 mg Orally Once a day, voucher 1st fill. 1 tablet Active Lisinopril 20 mg Orally Once a day 1 tablet 24h 30 Active Topiramate 100 mg Orally Once a day 1 tablet 24h Active Cymbalta 60 mg Orally twice a day 1 capsule 12h March, 30 days Active RESULTS No Results PROCEDURES [...]
--- OUTSIDE RECORDS SUMMARY | 2020-02-07 09:23 | XMS REPORT ---
Author Author BRIDGETTEBritton [facility] Address [address] [place] [address] Care Team Providers Care Gardener Name Role Phone BRIDGETTE, XAVIER Unavailable PROBLEMS Type Condition ICD9-CM Code UPP80-BP Code Onset Dates Condition S tatus SNOMED Code Problem Tingling in extremities R20.2 Active 03101846 Problem Generalized anxiety disorder F41.1 A ctive 70881736 Problem Personality disorder in adult F60.9 Active 78702433 Problem Hypothyroidism (acquired) E03.9 Acti ve 511100017 Problem Depression, unspecified depression type F32.9 Active 14484385 Problem Gastroesophageal reflux disease without esophagitis K21.9 Active 421347233 Problem Drug-induced erectile dysfunction N52.2 Active 330559675 Problem Major depressive disorder, recurrent, moderate F33 .1 Active 82681335 Problem Primary insomnia F51.01 Active 397 2004 Problem Acute left-sided low back pain with left-sided sciatica M54.42 Active 882086740 Problem 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 Active 962162835 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 99298017 Problem Insomnia, unspecified type G47.00 Act mary [id number] Problem Gastroesophageal reflux disease, esophagitis pre sence not specified K21.9 Active 512810161 Problem Anxiety F41.9 Active 45877106 Problem Acquired hypothyroidism E03.9 Active 904140073 Problem Secondary hypertension I15.9 Active 00917331 Problem Acute eczema L30.9 Active 8161575 02 Problem Hypercholesterolemia E78.0 Active 57967343 Problem Environmental allergies Z91.09 Active 685836453 ALLERGIES No Information ENCOUNTERS Encounter Location Date Diagnosis [facility] [address] [facility] [id number] [address] [place] [phone] Sep, [facility] [address] [facility] [id number] [address] [place] [phone] Jul, Generalized anxiety disorder F41.1 [facility] [address] [facility] [id number] [address] [place] [phone] Jul, [facility] [address] [facility] [id number] [address] [place] [phone] Jul, Acquired hypothyroidism E03. 9 [facility] [address] [facility] [id number] [address] [place] [phone] Jul, Generalized anxiety disorder F41.1 [facility] [address] [facility] [id number] [address] [place] [id number] 04 Jul, 2018 Generalized anxiety disorder F41.1 ; Major depressive disorder, recurrent, moderate F33.1 and Personality disorder in adult F60.9 [place] [id number] [facility] [id number] [address] [place] [phone] Jun, Generalized anxiety disorder F41.1 ; Major depressive disorder, recurrent, moderate F33.1 ; Primary insomnia F51.01 and Personality disorder in adult F60.9 [facility] [address] [place] [id number] [address] [place] [phone] May, Acquired hypothyroidism E03. 9 [facility] [address] [facility] [id number] [address] [place] [phone] May, Hypothyroidism (acquired) E0 3.9 and Gastroesophageal reflux disease without esophagitis K21.9 [facility] [address] [facility] [id number] [address] [place] [phone] Apr, [facility] [address] [facility] [id number] [address] [place] [id number] Apr, Skin infection L08.9 [facility] [address] [facility] [id number] [address] [place] [id number] 05 Apr, 2018 Generalized anxiety disorder F41.1 ; Major depressive disorder, recurrent, moderate F33.1 ; Primary insomnia F51.01 and Personality disorder in adult F60.9 [facility] [address] [facility] [id number] [address] [place] [phone] March, Generalized anxiety disorder F41.1 ; Major depressive disorder, recurrent, moderate F33.1 and Personality disorder in adult F60.9 [facility] [address] [facility] [id number] [address] [place] [phone] Feb, [facility] [address] [facility] [id number] [address] [place] [phone] Dec, Generalized anxiety disorder F41.1 ; Major depressive disorder, recurrent, moderate F33.1 and Personality disorder in adult F60.9 [facility] [address] [facility] [id number] [address] [place] [phone] Dec, Acute left-sided low back pa in with left-sided sciatica M54.42 [facility] [address] [facility] [id number] [address] [place] [phone] Nov, [facility] [address] [facility] [id number] [address] [place] [phone] Oct, Generalized anxiety disorder F41.1 ; Major depressive disorder, recurrent, moderate F33.1 and Personality disorder in adult F60.9 [facility] [address] [facility] [id number] [address] [place] [id number] 24 Sep, 2017 Acquired hypothyroidism E03. 9 ; Hypercholesterolemia E78.0 ; Generalized anxiety disorder F41.1 and Drug-induced erectile dysfunction N52.2 [facility] [address] [facility] [id number] [address] [place] [phone] Sep, [facility] [address] [facility] [id number] [address] [place] [id number] 17 Sep, 2017 Acquired hypothyroidism E03. 9 ; Hypercholesterolemia E78.0 ; Generalized anxiety disorder F41.1 and Drug-induced erectile dysfunction N52.2 [facility] [address] [facility] [id number] [address] [place] [id number] 07 Sep, 2017 Generalized anxiety disorder F41.1 ; Major depressive disorder, recurrent, moderate F33.1 and Personality disorder in adult F60.9 [facility] [address] [id number] [address] [place] [id number] Aug, Dental examination Z01.20 [facility] [address] [id number] [address] [place] [address] [id number] Aug, Dental caries K02.9 [facility] [address] [id number] [address] [place] [phone] Aug, [facility] [address] [id number] [address] [place] [address] [id number] Aug, Dental examination Z01.20 [facility] [address] [id number] [address] [place] [phone] Jul, Major depressive disorder, r ecurrent, moderate F33.1 [facility] [address] [facility] [id number] [address] [place] [phone] Jul, Generalized anxiety disorder F41.1 ; Major depressive disorder, recurrent, moderate F33.1 and Personality disorder in adult F60.9 [facility] [address] [facility] [id number] [address] [place] [phone] 08 Jul, 2017 Generalized anxiety disorder F41.1 ; Major depressive disorder, recurrent, moderate F33.1 and Personality disorder in adult F60.9 [facility] [address] [facility] [id number] [address] [place] [phone] Jun, Generalized anxiety disorder F41.1 ; Major depressive disorder, recurrent, moderate F33.1 and Personality disorder in adult F60.9 [facility] [address] [facility] [id number] [address] [place] [phone] Apr, Generalized anxiety disorder F41.1 ; Major depressive disorder, recurrent, moderate F33.1 and Personality disorder in adult F60.9 [place] [address] [facility] [id number] [address] [place] [phone] March, Acquired hypothyroidism E03. 9 [facility] [address] [facility] [id number] [address] [place] [phone] March, Acquired hypothyroidism E03. 9 and Left lower quadrant pain R10.32 [place] [address] [address] March, Hypercholesterolemia E78.0 ; Acquired hypothyroidism E03.9 ; Insomnia, unspecified type G47.00 ; Secondary hypertension I15.9 ; Gastroesophageal reflux disease, esophagitis presence not specified K21.9 ; Tingling in extremities R20.2 ; Environmental allergies Z91.09 ; Depression, unspecified depression type F32.9 and Left lower quadrant pain R10.32 [place] [address] [phone] Feb, High risk sexual behavior Z7 2.51 [place] [address] [address] Feb, Major depressive disorder, r ecurrent, moderate F33.1 and Generalized anxiety disorder F41.[address] [address] 22 Dec, 2016 Major depressive disorder, r ecurrent, moderate F33.1 [place] [address] [address] 17 Dec, 2016 [place] [address] [address] 16 Dec, 2016 Acquired hypothyroidism E03. 9 and High risk sexual behavior Z72.51 [place] [address] [address] 07 Dec, 2016 Major depressive disorder, r ecurrent, moderate F33.1 and Generalized anxiety disorder F41.1 [place] [address] [address] 07 Dec, 2016 Acquired hypothyroidism E03. 9 ; Secondary hypertension I15.9 and Acute eczema L30.9 [place] [address] [address] Nov, Acquired hypothyroidism E03. 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 ; Hypercholesterolemia E78.0 ; Gastroesophageal reflux disease, esophagitis presence not specified K21.9 ; Anxiety F41.9 and Secondary hypertension I15.9 [place] [address] [address] Oct, Major depressive disorder, r ecurrent, moderate F33.1 and Generalized anxiety disorder F41.1 [place] [address] [address] Aug, [place] [address] [address] Aug, Insomnia, unspecified type G 47.00 ; Acquired hypothyroidism E03.9 ; Hypercholesterolemia E78.0 and Gastroesophageal reflux disease, esophagitis presence not specified K21.9 [place] [address] [address] Jul, [place] [address] [address] Jul, Major depressive disorder, r ecurrent, in partial remission F33.41 and Generalized anxiety disorder F41.1 [place] [address] [address] Jun, [place] [address] [address] Jun, Cervical pain (neck) M54.2 a nd Cervical neuropathic pain M54.12 [place] [address] [address] 14 Apr, 2016 Insomnia, unspecified type G 47.00 ; Acquired hypothyroidism E03.9 ; Hypercholesterolemia E78.0 ; 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 ; Depression, unspecified depression type F32.9 ; 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 ; Gastroesophageal reflux disease, esophagitis presence not specified K21.9 ; Anxiety F41.9 ; Secondary hypertension I15.9 and Post- nasal drainage R09.82 [place] [address] [place] [id number] [address] [place] [id number] Apr, [facility] [address] [place] [id number] [address] [place] [phone] March, [facility] [address] [place] [id number] [address] [place] [id number] March, Unspecified hypothyroidism 2 44.9 and HTN (hypertension) 401.9 [facility] [address] [place] [id number] [address] [place] [phone] March, [facility] [address] [place] [id number] [address] [place] [phone] Dec, [facility] [address] [place] [id number] [place] [phone] Nov, [facility] [address] [address] Sep, Generalized anxiety disorder F41.1 and Major depressive disorder, recurrent, in partial remission F33.41 [facility] [address] [place] [id number] [address] [place] [address] Jun, Unspecified hypothyroidism 2 44.9 ; Sciatica 724.3 ; Major depressive disorder, recurrent episode, in partial or unspecified remission 296.35 ; Combined hyperlipidemia 272.2 ; HTN (hypertension) 401.9 ; Hidrosis 780.8 ; Cat allergies 477.8 and Environmental allergies V15.09 [facility] [address] [place] [id number] [address] [place] [id number] Jun, Major depressive disorder, r ecurrent episode, in partial or unspecified remission 296.35 ; Insomnia, unspecified 780.52 and Generalized anxiety disorder 300.02 [facility] [address] [place] [id number] [address] [place] [id number] May, [facility] [address] [place] [id number] [address] [place] [phone] Apr, [facility] [address] [place] [id number] [address] [place] [id number] 04 Apr, 2015 Closed mallet fracture of di stal phalanx of ring finger 816.02 [facility] [address] [facility] [id number] [address] [place] [id number] March, Depression, major, recurrent , moderate 296.32 ; Generalized anxiety disorder 300.02 and Borderline personality disorder 301.83 [facility] [address] [id number] [address] [place] [id number] Feb, [facility] [address] [id number] [address] [place] [id number] Feb, [facility] [address] [id number] [address] [place] [phone] Jan, [facility] [address] [id number] [address] [place] [id number] Jan, [facility] [address] [facility] [id number] [address] [place] [phone] Jan, [facility] [address] [id number] [address] [place] [id number] Jan, [facility] [address] [id number] [address] [place] [phone] Jan, [facility] [address] [facility] [id number] [address] [place] [id number] Jan, [facility] [address] [id number] [address] [place] [id number] Dec, [facility] [address] [id number] [address] [place] [phone] Dec, [facility] [address] [id number] [address] [place] [phone] Dec, [facility] [address] [id number] [address] [place] [phone] Dec, [facility] [address] [facility] [id number] [address] [place] [phone] Nov, [facility] [address] [id number] [address] [place] [address], [place] [address] Nov, [facility] [address] [id number] [address] [place] [address], [place] [address] Nov, [facility] [address] [id number] [address] [place] [address], [place] [address] Nov, [facility] [address] [id number] [address] [place] [address], [place] [address] Nov, [facility] [address] [id number] [address] [place] [address], [place] [address] Nov, [facility] [address] [id number] [address] [place] [address], [place] [address] Oct, [facility] [address] [id number] [address] [place] [address], [place] [address] Oct, [facility] [address] [id number] [address] [place] [address], [place] [address] Oct, [facility] [address] [id number] [address] [place] [address], [place] [address] Oct, [facility] [address] [id number] [address] [place] [address], [place] [address] Oct, [facility] [address] [id number] [address] [place] [address], [place] [address] Oct, [facility] [address] [id number] [address] [place] [address], [place] [address] Sep, [facility] [address] [id number] [address] [place] [address], [place] [address] Sep, [facility] [address] [id number] [address] [place] [address], [place] [address] Sep, [facility] [address] [id number] [address] [place] [address], [place] [address] Sep, [facility] [address] [id number] [address] [place] [address], [place] [address] Aug, [facility] [address] [id number] [address] [place] [address], [place] [address] Aug, [facility] [address] [id number] [address] [place] [address], [place] [address] Apr, [facility] [address] [id number] [address] [place] [address], [place] [address] 27 Apr, 2014 [facility] [address] [id number] [address] [place] [address], [place] [address] 17 Apr, 2014 [facility] [address] [id number] [address] [place] [address], [place] [address] 17 Apr, 2014 [facility] [address] [id number] [address] [place] [address], [place] [address] Apr, [facility] [address] [id number] [address] [place] [address], [place] [address] Apr, [facility] [address] [id number] [address] [place] [address], [place] [address] March, [facility] [address] [id number] [address] [place] [address], [place] [address] March, [facility] [address] [id number] [address] [place] [address], [place] [address] Dec, [facility] [address] [id number] [address] [place] [address], [place] [address] Dec, [facility] [address] [id number] [address] [place] [address], [place] [address] Sep, [facility] [address] [id number] [address] [place] [address], [place] [address] Sep, [facility] [address] [id number] [address] [place] [address], [place] [address] Aug, [facility] [address] [id number] [address] [place] [address], [place] [address] Aug, [facility] [address] [id number] [address] [place] [address], [place] [address] Aug, [facility] [address] [id number] [address] [place] [address], [place] [address] Aug, [facility] [address] [id number] [address] [place] [address], [place] [address] Aug, [facility] [address] [id number] [address] [place] [address], [place] [address] Aug, 2012 [facility] [address] [id number] [address] [place] [address], [place] [address] Aug, [facility] [address] [id number] [address] [place] [address], [place] [address] Aug, [facility] [address] [id number] [address] [place] [address], [place] [address] Aug, [facility] [address] [id number] [address] [place] [address], [place] [address] Aug, [facility] [address] [id number] [address] [place] [address], [place] [address] Jul, [facility] [address] [id number] [address] [place] [address], [place] [address] Jul, [facility] [address] [id number] [address] [place] [address], [place] [address] Jul, [facility] [address] [id number] [address] [place] [address], [place] [address] Jun, [facility] [address] [id number] [address] [place] [address], [place] [address] May, [facility] [address] [id number] [address] [place] [address], [place] [address] May, [facility] [address] [id number] [address] [place] [address], [place] [address] May, [facility] [address] [id number] [address] [place] [address] [place] [address] Apr, [facility] [address] [id number] [address] [place] [address], [place] [address] March, [facility] [address] [id number] [address] [place] [address], [place] [address] March, [facility] [address] [id number] [address] [place] [address], [place] [address] Feb, [facility] [address] [id number] [address] [place] [address], [place] [address] Feb, [facility] [address] [id number] [address] [place] [address], [place] [address] Feb, [facility] [address] [id number] [address] [place] [address], [place] [address] Feb, [facility] [address] [id number] [address] [place] [address], [place] [address] Jan, [facility] [address] [id number] [address] [place] [address], [place] [address] Jan, [facility] [address] [id number] [address] [place] [address], [place] [address] Jan, [facility] [address] [id number] [address] [place] [address], [place] [address] Jan, [facility] [address] [id number] [address] [place] [address], [place] [address] Dec, [facility] [address] [id number] [address] [place] [address], [place] [address] Dec, [facility] [address] [id number] [address] [place] [address], [place] [address] Dec, [facility] [address] [id number] [address] [place] [address], [place] [address] Nov, [facility] [address] [id number] [address] [place] [address], [place] [address] Nov, [facility] [address] [id number] [address] [place] [address], [place] [address] Nov, [facility] [address] [id number] [address] [place] [address], [place] [address] Nov, [facility] [address] [id number] [address] [place] [address], [place] [address] Oct, [facility] [address] [id number] [address] [place] [address], [place] [address] Oct, [facility] [address] [id number] [address] [place] [address], [place] [address] Oct, [facility] [address] [id number] [address] [place] [address], [place] [address] Oct, [facility] [address] [id number] [address] [place] [address], [place] [address] Sep, [facility] [address] [id number] [address] [place] [address], [place] [address] Sep, [facility] [address] [id number] [address] [place] [address], [place] [address] Sep, [facility] [address] [id number] [address] [place] [address], [place] [address] Sep, [facility] [address] [id number] [address] [place] [address], [place] [address] Aug, [facility] [address] [id number] [address] [place] [address], [place] [address] Aug, [facility] [address] [id number] [address] [place] [address], [place] [address] Aug, [facility] [address] [id number] [address] [place] [address], [place] [address] Jul, [facility] [address] [id number] [address] [place] [address], [place] [address] Jun, [facility] [address] [id number] [address] [place] [address], [place] [address] May, [facility] [address] [id number] [address] [place] [address], [place] [address] May, [facility] [address] [id number] [address] [place] [address], [place] [address] May, [facility] [address] [id number] [address] [place] [address], [place] [address] March, [facility] [address] [id number] [address] [place] [address], [place] [address] March, [facility] [address] [id number] [address] [place] [address], [place] [id number] Feb, [facility] [address] [id number] [address] [place] [address], [place] [id number] Feb, [facility] [address] [id number] [address] [place] [address], [place] [id number] Feb, [facility] [address] [id number] [address] [place] [address], [place] [id number] Feb, [facility] [address] [id number] [address] [place] [address], [place] [id number] Feb, [facility] [address] [id number] [address] [place] [address], [place] [id number] Feb, [facility] [address] [id number] [address] [place] [address], [place] [id number] Feb, [facility] [address] [id number] [address] [place] [address], [place] [id number] Feb, [facility] [address] [id number] [address] [place] [address], [place] [id number] Dec, [facility] [address] [id number] [address] [place] [address], [place] [id number] Nov, [facility] [address] [id number] [address] [place] [address], [place] [id number] Nov, [facility] [address] [id number] [address] [place] [address], [place] [id number] 27 Nov, 2011 [facility] [address] [id number] [address] [place] [address], [place] [id number] 13 Nov, 2011 [facility] [address] [id number] [address] [place] [address], [place] [id number] 13 Nov, 2011 [facility] [address] [id number] [address] [place] [address], [place] [id number] 12 Nov, 2011 [facility] [address] [id number] [address] [place] [address], [place] [id number] 14 Oct, 2011 [facility] [address] [id number] [address] [place] [address], [place] [id number] Sep, [facility] [address] [id number] [address] [place] [address], [place] [id number] Sep, [facility] [address] [id number] [address] [place] [address], [place] [id number] Sep, [facility] [address] [id number] [address] [place] [address], [place] [id number] Sep, [facility] [address] [id number] [address] [place] [address], [place] [id number] Aug, [facility] [address] [id number] [address] [place] [address], [place] [id number] 24 Aug, 2011 [facility] [address] [id number] [address] [place] [address], [place] [id number] Aug, [facility] [address] [id number] [address] [place] [address], [place] [id number] Aug, [facility] [address] [id number] [address] [place] [address], [place] [id number] Aug, [facility] [address] [id number] [address] [place] [address], [place] [id number] Aug, [facility] [address] [id number] [address] [place] [address], [place] [id number] Aug, [facility] [address] [facility] [id number] [address] [place] [id number] Aug, [facility] [address] [facility] [id number] [address] [place] [id number] Aug, [facility] [address] [facility] [id number] [address] [place] [id number] Jul, [facility] [address] [facility] [id number] [address] [place] [id number] May, IMMUNIZATIONS No Known Immunizations SOCIAL HISTORY Never Assessed REASON FOR VISIT PALS-cymbalta rexdimai PLAN OF CARE VITAL SIGNS MEDICATIONS Medication Instructions Dosage Frequency Start Date End Date Duration S tatus Rexulti 1 MG Orally Once a day 1 tablet 24h 19 Jul, 2017 90 days Active Cymbalta 60 mg Orally twice a day 1 capsule 12h March, 90 days Active RESULTS No Results PROCEDURES [...]
--- OUTSIDE RECORDS SUMMARY | 2020-02-07 09:23 | XMS REPORT ---
Author Author Britton MARQUEZ Organization [facility] Address [address] [place] [address] Care Team Providers Care Director Product Name Role Phone JABIER MARQUEZ Unavailable PROBLEMS Type Condition ICD9-CM Code FUT63-YW Code Onset Dates Condition S tatus SNOMED Code Problem Tingling in extremities R20.2 Active 54914586 Problem Generalized anxiety disorder F41.1 A ctive 05713827 Problem Personality disorder in adult F60.9 Active 41473918 Problem Hypothyroidism (acquired) E03.9 Acti ve 171619362 Problem Depression, unspecified depression type F32.9 Active 27774276 Problem Gastroesophageal reflux disease without esophagitis K21.9 Active 267649289 Problem Drug-induced erectile dysfunction N52.2 Active 781461877 Problem Major depressive disorder, recurrent, moderate F33 .1 Active 02207471 Problem Primary insomnia F51.01 Active 397 2004 Problem Acute left-sided low back pain with left-sided sciatica M54.42 Active 670086222 Problem 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 Active 933755065 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 21858031 Problem Insomnia, unspecified type G47.00 Act mary 103499051 Problem Gastroesophageal reflux disease, esophagitis pre sence not specified K21.9 Active 286354198 Problem Anxiety F41.9 Active 07039016 Problem Acquired hypothyroidism E03.9 Active 049239342 Problem Secondary hypertension I15.9 Active 88335387 Problem Acute eczema L30.9 Active 4597049 02 Problem Hypercholesterolemia E78.0 Active 89799754 Problem Environmental allergies Z91.09 Active 564800502 ALLERGIES No Information ENCOUNTERS Encounter Location Date Diagnosis [facility] [address] [facility] [id number] [address] [place] [phone] Sep, [facility] [address] [facility] [id number] [address] [place] [address] Jul, Generalized anxiety disorder F41.1 [facility] [address] [facility] [id number] [address] [place] [address] 04 Jul, 2018 Generalized anxiety disorder F41.1 ; Major depressive disorder, recurrent, moderate F33.1 and Personality disorder in adult F60.9 [facility] [address] [facility] [id number] [address] [place] [address] Jun, Generalized anxiety disorder F41.1 ; Major depressive disorder, recurrent, moderate F33.1 ; Primary insomnia F51.01 and Personality disorder in adult F60.9 [facility] [address] [facility] [id number] [address] [place] [address] May, Acquired hypothyroidism E03. 9 [facility] [address] [facility] [id number] [address] [place] [address] May, Hypothyroidism (acquired) E0 3.9 and Gastroesophageal reflux disease without esophagitis K21.9 [facility] [address] [facility] [id number] [address] [place] [address] Apr, [facility] [address] [facility] [id number] [address] [place] [address] Apr, Skin infection L08.9 [facility] [address] [facility] [id number] [address] [place] [address] Apr, Generalized anxiety disorder F41.1 ; Major depressive disorder, recurrent, moderate F33.1 ; Primary insomnia F51.01 and Personality disorder in adult F60.9 [facility] [address] [facility] [id number] [address] [place] [address] March, Generalized anxiety disorder F41.1 ; Major depressive disorder, recurrent, moderate F33.1 and Personality disorder in adult F60.9 [facility] [address] [facility] [id number] [address] [place] [address] Feb, [facility] [address] [facility] [id number] [address] [place] [address] Dec, Generalized anxiety disorder F41.1 ; Major depressive disorder, recurrent, moderate F33.1 and Personality disorder in adult F60.9 [facility] [address] [id number] [address] [place] [address] 06 Dec, 2017 Acute left-sided low back pa in with left-sided sciatica M54.42 [facility] [address] [id number] [address] [place] [address] Nov, [facility] [address] [id number] [address] [place] [address] Oct, Generalized anxiety disorder F41.1 ; Major depressive disorder, recurrent, moderate F33.1 and Personality disorder in adult F60.9 [facility] [address] [id number] [address] [place] [address] Sep, Acquired hypothyroidism E03. 9 ; Hypercholesterolemia E78.0 ; Generalized anxiety disorder F41.1 and Drug-induced erectile dysfunction N52.2 [facility] [address] [facility] [id number] [address] [place] [address] Sep, [facility] [address] [facility] [id number] [address] [place] [address] Sep, Acquired hypothyroidism E03. 9 ; Hypercholesterolemia E78.0 ; Generalized anxiety disorder F41.1 and Drug-induced erectile dysfunction N52.2 [facility] [address] [facility] [id number] [address] [place] [address] Sep, Generalized anxiety disorder F41.1 ; Major depressive disorder, recurrent, moderate F33.1 and Personality disorder in adult F60.9 [facility] [address] [id number] [address] [place] [id number] Aug, Dental examination Z01.20 [facility] [address] [id number] [address] [place] [id number] Aug, Dental caries K02.9 [facility] [address] [id number] [address] [place] [address] Aug, [facility] [address] [id number] [address] [place] [id number] 10 Aug, 2017 Dental examination Z01.20 [place] [address] [address] 20 Jul, 2017 Major depressive disorder, r ecurrent, moderate F33.1 [place] [address] [place] [id number] [address] [place] [address] 19 Jul, 2017 Generalized anxiety disorder F41.1 ; Major depressive disorder, recurrent, moderate F33.1 and Personality disorder in adult F60.9 [place] [address] [place] [id number] [address] [place] [address] 08 Jul, 2017 Generalized anxiety disorder F41.1 ; Major depressive disorder, recurrent, moderate F33.1 and Personality disorder in adult F60.9 [place] [address] [place] [id number] [address] [place] [address] Jun, Generalized anxiety disorder F41.1 ; Major depressive disorder, recurrent, moderate F33.1 and Personality disorder in adult F60.9 [place] [address] [place] [id number] [address] [place] [address] Apr, Generalized anxiety disorder F41.1 ; Major depressive disorder, recurrent, moderate F33.1 and Personality disorder in adult F60.9 [place] [address] [place] [id number] [address] [place] [address] March, Acquired hypothyroidism E03. 9 [place] [address] [address] March, Acquired hypothyroidism E03. 9 and Left lower quadrant pain R10.32 [place] [address] [place] [id number] [address] [place] [address] March, Hypercholesterolemia E78.0 ; Acquired hypothyroidism E03.9 ; Insomnia, unspecified type G47.00 ; Secondary hypertension I15.9 ; Gastroesophageal reflux disease, esophagitis presence not specified K21.9 ; Tingling in extremities R20.2 ; Environmental allergies Z91.09 ; Depression, unspecified depression type F32.9 and Left lower quadrant pain R10.32 [place] [address] [place] [id number] [address] [place] [address] Feb, High risk sexual behavior Z7 2.51 [place] [address] [place] [id number] Feb, Major depressive disorder, r ecurrent, moderate F33.1 and Generalized anxiety disorder F41.1 [place] [address] [address] Dec, Major depressive disorder, r ecurrent, moderate F33.1 [place] [address] [address] Dec, [place] [address] [address] 16 Dec, 2016 Acquired hypothyroidism E03. 9 and High risk sexual behavior Z72.51 [place] [address] [address] Dec, Major depressive disorder, r ecurrent, moderate F33.1 and Generalized anxiety disorder F41.1 [place] [address] [address] 07 Dec, 2016 Acquired hypothyroidism E03. 9 ; Secondary hypertension I15.9 and Acute eczema L30.9 [place] [address] [address] Nov, Acquired hypothyroidism E03. 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 ; Hypercholesterolemia E78.0 ; Gastroesophageal reflux disease, esophagitis presence not specified K21.9 ; Anxiety F41.9 and Secondary hypertension I15.9 [place] [address] [address] Oct, Major depressive disorder, r ecurrent, moderate F33.1 and Generalized anxiety disorder F41.1 [place] [address] [address] Aug, [place] [address] [address] Aug, Insomnia, unspecified type G 47.00 ; Acquired hypothyroidism E03.9 ; Hypercholesterolemia E78.0 and Gastroesophageal reflux disease, esophagitis presence not specified K21.9 [place] [address] [address] Jul, [place] [address] [address] Jul, Major depressive disorder, r ecurrent, in partial remission F33.41 and Generalized anxiety disorder F41.1 [place] [address] [address] Jun, [place] [address] [address] Jun, Cervical pain (neck) M54.2 a nd Cervical neuropathic pain M54.12 [place] [address] [address] Apr, Insomnia, unspecified type G 47.00 ; Acquired hypothyroidism E03.9 ; Hypercholesterolemia E78.0 ; 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 ; Depression, unspecified depression type F32.9 ; 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 ; Gastroesophageal reflux disease, esophagitis presence not specified K21.9 ; Anxiety F41.9 ; Secondary hypertension I15.9 and Post- nasal drainage R09.82 [place] [address] [address] Apr, [place] [address] [address] March, [place] [address] [address] March, Unspecified hypothyroidism 2 44.9 and HTN (hypertension) 401.9 [place] [address] [address] March, [place] [address] [address] Dec, [place] [address] [address] Nov, [place] [address] [address] Sep, Generalized anxiety disorder F41.1 and Major depressive disorder, recurrent, in partial remission F33.[address] [address] Jun, Unspecified hypothyroidism 2 44.9 ; Sciatica 724.3 ; Major depressive disorder, recurrent episode, in partial or unspecified remission 296.35 ; Combined hyperlipidemia 272.2 ; HTN (hypertension) 401.9 ; Hidrosis 780.8 ; Cat allergies 477.8 and Environmental allergies V15.09 [place] [address] [address] Jun, Major depressive disorder, r ecurrent episode, in partial or unspecified remission 296.35 ; Insomnia, unspecified 780.52 and Generalized anxiety disorder 300.02 [place] [address] [address] May, [place] [address] [address] Apr, [place] [address] [address] Apr, Closed mallet fracture of di stal phalanx of ring finger 816.02 [place] [address] [address] March, Depression, major, recurrent , moderate 296.32 ; Generalized anxiety disorder 300.02 and Borderline personality disorder 301.[address] [address] 14 Feb, 2015 [facility] [address] [id number] [address] [place] [address], [place] [address] Feb, [facility] [address] [id number] [address] [place] [address], [place] [address] Jan, [facility] [address] [id number] [address] [place] [address], [place] [address] Jan, [facility] [address] [id number] [address] [place] [address], [place] [address] Jan, [facility] [address] [id number] [address] [place] [address], [place] [address] Jan, [facility] [address] [id number] [address] [place] [address], [place] [address] Jan, [facility] [address] [id number] [address] [place] [address], [place] [address] Jan, [facility] [address] [id number] [address] [place] [address], [place] [address] Dec, [facility] [address] [id number] [address] [place] [address], [place] [address] Dec, [facility] [address] [id number] [address] [place] [address], [place] [address] Dec, [facility] [address] [id number] [address] [place] [address], [place] [address] Dec, [facility] [address] [id number] [address] [place] [address], [place] [address] Nov, [facility] [address] [id number] [address] [place] [address], [place] [address] Nov, [facility] [address] [id number] [address] [place] [address], [place] [address] Nov, [facility] [address] [id number] [address] [place] [address], [place] [address] Nov, [facility] [address] [id number] [address] [place] [address], [place] [address] Nov, [facility] [address] [id number] [address] [place] [address], [place] [address] Nov, [facility] [address] [id number] [address] [place] [address], [place] [address] Oct, [facility] [address] [id number] [address] [place] [address], [place] [address] Oct, [facility] [address] [id number] [address] [place] [address], [place] [address] Oct, [facility] [address] [id number] [address] [place] [address], [place] [address] Oct, [facility] [address] [id number] [address] [place] [address], [place] [address] Oct, [facility] [address] [id number] [address] [place] [address], [place] [address] Oct, [facility] [address] [id number] [address] [place] [address], [place] [address] Sep, [facility] [address] [id number] [address] [place] [address], [place] [address] Sep, [facility] [address] [id number] [address] [place] [address], [place] [address] Sep, [facility] [address] [id number] [address] [place] [address], [place] [address] Sep, [facility] [address] [id number] [address] [place] [address], [place] [address] Aug, [facility] [address] [id number] [address] [place] [address], [place] [address] Aug, [facility] [address] [id number] [address] [place] [address], [place] [address] Apr, [facility] [address] [id number] [address] [place] [address], [place] [address] Apr, [facility] [address] [id number] [address] [place] [address], [place] [address] Apr, [facility] [address] [id number] [address] [place] [address], [place] [address] Apr, [facility] [address] [id number] [address] [place] [address], [place] [address] Apr, [facility] [address] [id number] [address] [place] [address], [place] [address] Apr, [facility] [address] [id number] [address] [place] [address], [place] [address] March, [facility] [address] [id number] [address] [place] [address], [place] [address] March, [facility] [address] [id number] [address] [place] [address], [place] [address] Dec, [facility] [address] [id number] [address] [place] [address], [place] [address] Dec, [facility] [address] [id number] [address] [place] [address], [place] [address] Sep, [facility] [address] [id number] [address] [place] [address], [place] [address] Sep, [facility] [address] [id number] [address] [place] [address], [place] [address] Aug, [facility] [address] [id number] [address] [place] [address], [place] [address] Aug, [facility] [address] [id number] [address] [place] [address], [place] [address] Aug, [facility] [address] [id number] [address] [place] [address], [place] [address] Aug, [facility] [address] [id number] [address] [place] [address], [place] [address] Aug, [facility] [address] [id number] [address] [place] [address] [place] [address] 09 Aug, 2013 [facility] [address] [id number] [address] [place] [address], [place] [address] 08 Aug, 2013 [facility] [address] [id number] [address] [place] [address], [place] [address] Aug, [facility] [address] [id number] [address] [place] [address], [place] [address] Aug, [facility] [address] [id number] [address] [place] [address], [place] [address] Aug, [facility] [address] [id number] [address] [place] [address], [place] [address] 27 Jul, 2013 [facility] [address] [id number] [address] [place] [address], [place] [address] Jul, [facility] [address] [id number] [address] [place] [address], [place] [address] 05 Jul, 2013 [facility] [address] [id number] [address] [place] [address], [place] [address] Jun, [facility] [address] [id number] [address] [place] [address], [place] [address] May, [facility] [address] [id number] [address] [place] [address], [place] [address] May, [facility] [address] [id number] [address] [place] [address], [place] [address] May, [facility] [address] [id number] [address] [place] [address], [place] [address] Apr, [facility] [address] [id number] [address] [place] [address], [place] [address] March, [facility] [address] [id number] [address] [place] [address], [place] [address] March, [facility] [address] [id number] [address] [place] [address], [place] [address] Feb, [facility] [address] [id number] [address] [place] [address], [place] [address] 18 Feb, 2013 [facility] [address] [id number] [address] [place] [address], [place] [address] Feb, [facility] [address] [id number] [address] [place] [address], [place] [address] Feb, [facility] [address] [id number] [address] [place] [address], [place] [address] Jan, [facility] [address] [id number] [address] [place] [address], [place] [address] Jan, [facility] [address] [id number] [address] [place] [address], [place] [address] Jan, [facility] [address] [id number] [address] [place] [address], [place] [address] Jan, [facility] [address] [id number] [address] [place] [address], [place] [address] Dec, [facility] [address] [id number] [address] [place] [address], [place] [address] Dec, [facility] [address] [id number] [address] [place] [address], [place] [address] Dec, [facility] [address] [id number] [address] [place] [address], [place] [address] Nov, [facility] [address] [id number] [address] [place] [address], [place] [address] Nov, [facility] [address] [id number] [address] [place] [address], [place] [address] Nov, [facility] [address] [id number] [address] [place] [address], [place] [address] Nov, [facility] [address] [id number] [address] [place] [address], [place] [address] Oct, [facility] [address] [id number] [address] [place] [address], [place] [address] Oct, [facility] [address] [id number] [address] [place] [address], [place] [address] Oct, [facility] [address] [id number] [address] [place] [address], [place] [address] Oct, [facility] [address] [id number] [address] [place] [address], [place] [address] Sep, [facility] [address] [id number] [address] [place] [address], [place] [address] Sep, [facility] [address] [id number] [address] [place] [address], [place] [address] Sep, [facility] [address] [id number] [address] [place] [address], [place] [address] Sep, [facility] [address] [id number] [address] [place] [address], [place] [address] Aug, [facility] [address] [id number] [address] [place] [address], [place] [address] Aug, [facility] [address] [id number] [address] [place] [address], [place] [address] Aug, [facility] [address] [id number] [address] [place] [address], [place] [address] Jul, [facility] [address] [id number] [address] [place] [address], [place] [address] Jun, [facility] [address] [id number] [address] [place] [address], [place] [address] May, [facility] [address] [id number] [address] [place] [address], [place] [address] May, [facility] [address] [id number] [address] [place] [address], [place] [address] May, [facility] [address] [id number] [address] [place] [address], [place] [address] March, [facility] [address] [id number] [address] [place] [address], [place] [address] March, [facility] [address] [id number] [address] [place] [address], [place] [address] Feb, [facility] [address] [id number] [address] [place] [address], [place] [address] Feb, [facility] [address] [id number] [address] [place] [address], [place] [address] 24 Feb, 2012 [facility] [address] [id number] [address] [place] [address], [place] [address] Feb, [facility] [address] [id number] [address] [place] [address], [place] [address] Feb, [facility] [address] [id number] [address] [place] [address], [place] [address] Feb, [facility] [address] [id number] [address] [place] [address], [place] [address] Feb, [facility] [address] [id number] [address] [place] [address], [place] [address] Feb, [facility] [address] [id number] [address] [place] [address], [place] [address] Dec, [facility] [facility] [address] [id number] [address] [place] [address], [place] [address] Nov, [facility] [address] [id number] [address] [place] [address], [place] [address] Nov, [facility] [address] [id number] [address] [place] [address], [place] [address] Nov, [facility] [address] [id number] [address] [place] [address], [place] [address] Nov, [facility] [address] [id number] [address] [place] [address], [place] [address] Nov, [facility] [address] [id number] [address] [place] [address], [place] [address] Nov, [facility] [address] [id number] [address] [place] [address], [place] [address] Oct, [facility] [address] [id number] [address] [place] [address], [place] [address] Sep, [facility] [address] [id number] [address] [place] [address], [place] [address] Sep, [facility] [address] [id number] [address] [place] [address], [place] [address] Sep, [facility] [address] [id number] [address] [place] [address], [place] [address] Sep, [facility] [address] [id number] [address] [place] [address], [place] [address] Aug, [facility] [address] [id number] [address] [place] [address], [place] [address] Aug, [facility] [address] [id number] [address] [place] [address], [place] [address] Aug, [facility] [address] [id number] [address] [place] [address], [place] [address] Aug, [facility] [address] [id number] [address] [place] [address], [place] [address] Aug, [facility] [address] [id number] [address] [place] [address], [place] [address] Aug, [facility] [address] [id number] [address] [place] [address], [place] [address] 17 Aug, 2011 [facility] [address] [id number] [address] [place] [address], [place] [address] Aug, [facility] [address] [id number] [address] [place] [address], [place] [address] 10 Aug, 2011 [facility] [address] [id number] [address] [place] [address], [place] [address] 12 Jul, 2011 [facility] [address] [id number] [address] [place] [address] [place] [address] May, IMMUNIZATIONS No Known Immunizations SOCIAL HISTORY Never Assessed REASON FOR VISIT lab PLAN OF CARE VITAL SIGNS MEDICATIONS Unknown [...]
--- OUTSIDE RECORDS SUMMARY | 2020-02-07 09:23 | XMS REPORT ---
Author [facility] Address [address] [place] [address] Care Team Providers Care Poleyard Supervisor Name Role Phone BRIDGETTE, XAVIER Unavailable PROBLEMS Type Condition ICD9-CM Code DPP25-AE Code Onset Dates Condition S tatus SNOMED Code Problem Tingling in extremities R20.2 Active 46070893 Problem Generalized anxiety disorder F41.1 A ctive 29400035 Problem Personality disorder in adult F60.9 Active 57745746 Problem Hypothyroidism (acquired) E03.9 Acti ve 793610466 Problem Depression, unspecified depression type F32.9 Active 96321016 Problem Gastroesophageal reflux disease without esophagitis K21.9 Active 364495095 Problem Drug-induced erectile dysfunction N52.2 Active 490503465 Problem Major depressive disorder, recurrent, moderate F33 .1 Active 16015966 Problem Primary insomnia F51.01 Active 397 2004 Problem Acute left-sided low back pain with left-sided sciatica M54.42 Active 883571093 Problem 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 Active 502150699 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 44953756 Problem Insomnia, unspecified type G47.00 Act mary 613606201 Problem Gastroesophageal reflux disease, esophagitis pre sence not specified K21.9 Active 226630756 Problem Anxiety F41.9 Active 54647059 Problem Acquired hypothyroidism E03.9 Active 499927552 Problem Secondary hypertension I15.9 Active 60366875 Problem Acute eczema L30.9 Active 1891253 02 Problem Hypercholesterolemia E78.0 Active 40840028 Problem Environmental allergies Z91.09 Active 257929577 ALLERGIES Substance Reaction Event Type Date Status Amoxicillin vomiting Drug Allergy Jun, Active ENCOUNTERS Encounter Location Date Diagnosis [facility] [address] [facility] [id number] [address] [place] [address] Sep, [facility] [address] [place] [id number] [address] [place] [address] 12 Jul, 2018 Acquired hypothyroidism E03. 9 [facility] [address] [facility] [id number] [address] [place] [address] 10 Jul, 2018 Generalized anxiety disorder F41.1 [place] [address] [facility] [id number] [address] [place] [address] 04 Jul, 2018 Generalized anxiety disorder F41.1 ; Major depressive disorder, recurrent, moderate F33.1 and Personality disorder in adult F60.9 [facility] [address] [facility] [id number] [address] [place] [address] Jun, Generalized anxiety disorder F41.1 ; Major depressive disorder, recurrent, moderate F33.1 ; Primary insomnia F51.01 and Personality disorder in adult F60.9 [place] [address] [facility] [id number] [address] [place] [address] May, Acquired hypothyroidism E03. 9 [facility] [address] [facility] [id number] [address] [place] [address] May, Hypothyroidism (acquired) E0 3.9 and Gastroesophageal reflux disease without esophagitis K21.9 [place] [address] [facility] [id number] [address] [place] [address] Apr, [facility] [address] [facility] [id number] [address] [place] [address] Apr, Skin infection L08.9 [facility] [address] [facility] [id number] [address] [place] [address] 05 Apr, 2018 Generalized anxiety disorder F41.1 ; Major depressive disorder, recurrent, moderate F33.1 ; Primary insomnia F51.01 and Personality disorder in adult F60.9 [place] [address] [facility] [id number] [address] [place] [address] March, Generalized anxiety disorder F41.1 ; Major depressive disorder, recurrent, moderate F33.1 and Personality disorder in adult F60.9 [facility] [address] [facility] [id number] [address] [place] [address] Feb, [facility] [address] [facility] [id number] [address] [place] [address] Dec, Generalized anxiety disorder F41.1 ; Major depressive disorder, recurrent, moderate F33.1 and Personality disorder in adult F60.9 [facility] [address] [facility] [id number] [address] [place] [address] Dec, Acute left-sided low back pa in with left-sided sciatica M54.42 [facility] [address] [facility] [id number] [address] [place] [address] Nov, [facility] [address] [facility] [id number] [address] [place] [address] Oct, Generalized anxiety disorder F41.1 ; Major depressive disorder, recurrent, moderate F33.1 and Personality disorder in adult F60.9 [facility] [address] [facility] [id number] [address] [place] [address] Sep, Acquired hypothyroidism E03. 9 ; Hypercholesterolemia E78.0 ; Generalized anxiety disorder F41.1 and Drug-induced erectile dysfunction N52.2 [facility] [address] [facility] [id number] [address] [place] [address] Sep, [facility] [address] [facility] [id number] [address] [place] [address] Sep, Acquired hypothyroidism E03. 9 ; Hypercholesterolemia E78.0 ; Generalized anxiety disorder F41.1 and Drug-induced erectile dysfunction N52.2 [facility] [address] [facility] [id number] [address] [place] [address] Sep, Generalized anxiety disorder F41.1 ; Major depressive disorder, recurrent, moderate F33.1 and Personality disorder in adult F60.9 [facility] [address] [id number] [address] [place] [id number] Aug, Dental examination Z01.20 [facility] [address] [id number] [address] [place] [id number] Aug, Dental caries K02.9 [facility] [address] [facility] [id number] [address] [place] [address] Aug, [facility] [address] [id number] [address] [place] [address] [id number] Aug, Dental examination Z01.20 [facility] [address] [facility] [id number] [address] [place] [address] 20 Jul, 2017 Major depressive disorder, r ecurrent, moderate F33.1 [facility] [address] [facility] [id number] [address] [place] [address] 19 Jul, 2017 Generalized anxiety disorder F41.1 ; Major depressive disorder, recurrent, moderate F33.1 and Personality disorder in adult F60.9 [facility] [address] [facility] [id number] [address] [place] [address] 08 Jul, 2017 Generalized anxiety disorder F41.1 ; Major depressive disorder, recurrent, moderate F33.1 and Personality disorder in adult F60.9 [facility] [address] [facility] [id number] [address] [place] [address] Jun, Generalized anxiety disorder F41.1 ; Major depressive disorder, recurrent, moderate F33.1 and Personality disorder in adult F60.9 [facility] [address] [facility] [id number] [address] [place] [address] Apr, Generalized anxiety disorder F41.1 ; Major depressive disorder, recurrent, moderate F33.1 and Personality disorder in adult F60.9 [facility] [address] [facility] [id number] [address] [place] [address] March, Acquired hypothyroidism E03. 9 [facility] [address] [facility] [id number] [address] [place] [address] March, Acquired hypothyroidism E03. 9 and Left lower quadrant pain R10.32 [facility] [address] [facility] [id number] [address] [place] [address] March, Hypercholesterolemia E78.0 ; Acquired hypothyroidism E03.9 ; Insomnia, unspecified type G47.00 ; Secondary hypertension I15.9 ; Gastroesophageal reflux disease, esophagitis presence not specified K21.9 ; Tingling in extremities R20.2 ; Environmental allergies Z91.09 ; Depression, unspecified depression type F32.9 and Left lower quadrant pain R10.32 [place] [address] [place] [id number] Feb, High risk sexual behavior Z7 2.51 [place] [address] Feb, Major depressive disorder, r ecurrent, moderate F33.1 and Generalized anxiety disorder F41.[address] 22 Dec, 2016 Major depressive disorder, r ecurrent, moderate F33.1 [address] 17 Dec, 2016 [place] [address] 16 Dec, 2016 Acquired hypothyroidism E03. 9 and High risk sexual behavior Z72.51 [place] [address] [place] [address] 07 Dec, 2016 Major depressive disorder, r ecurrent, moderate F33.1 and Generalized anxiety disorder F41.1 [place] [address] [place] [address] 07 Dec, 2016 Acquired hypothyroidism E03. 9 ; Secondary hypertension I15.9 and Acute eczema L30.9 [place] [address] [place] [address] Nov, Acquired hypothyroidism E03. 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 ; Hypercholesterolemia E78.0 ; Gastroesophageal reflux disease, esophagitis presence not specified K21.9 ; Anxiety F41.9 and Secondary hypertension I15.9 [place] [address] [place] [address] Oct, Major depressive disorder, r ecurrent, moderate F33.1 and Generalized anxiety disorder F41.1 [place] [address] [address] Aug, [place] [address] [place] [id number] [place] [address] Aug, Insomnia, unspecified type G 47.00 ; Acquired hypothyroidism E03.9 ; Hypercholesterolemia E78.0 and Gastroesophageal reflux disease, esophagitis presence not specified K21.[address] [address] Jul, [place] [address] [address] Jul, Major depressive disorder, r ecurrent, in partial remission F33.41 and Generalized anxiety disorder F41.[address] [address] Jun, [address] [address] Jun, Cervical pain (neck) M54.2 a nd Cervical neuropathic pain M54.[address] [address] Apr, Insomnia, unspecified type G 47.00 ; Acquired hypothyroidism E03.9 ; Hypercholesterolemia E78.0 ; 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 ; Depression, unspecified depression type F32.9 ; 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 ; Gastroesophageal reflux disease, esophagitis presence not specified K21.9 ; Anxiety F41.9 ; Secondary hypertension I15.9 and Post- nasal drainage R09.82 [place] [address] [address] Apr, [address] [address] March, [facility] [address] [address] March, Unspecified hypothyroidism 2 44.9 and HTN (hypertension) 401.9 [place] [address] [address] March, [facility] [address] [address] Dec, [place] [address] [address] Nov, [place] [address] [address] Sep, Generalized anxiety disorder F41.1 and Major depressive disorder, recurrent, in partial remission F33.41 [place] [address] [address] Jun, Unspecified hypothyroidism 2 44.9 ; Sciatica 724.3 ; Major depressive disorder, recurrent episode, in partial or unspecified remission 296.35 ; Combined hyperlipidemia 272.2 ; HTN (hypertension) 401.9 ; Hidrosis 780.8 ; Cat allergies 477.8 and Environmental allergies V15.09 [place] [address] [address] Jun, Major depressive disorder, r ecurrent episode, in partial or unspecified remission 296.35 ; Insomnia, unspecified 780.52 and Generalized anxiety disorder 300.02 [place] [address] [place] [id number] [address] [place] [address] May, [place] [address] [address] Apr, [place] [address] [address] Apr, Closed mallet fracture of di stal phalanx of ring finger 816.02 [place] [address] [address] March, Depression, major, recurrent , moderate 296.32 ; Generalized anxiety disorder 300.02 and Borderline personality disorder 301.83 [facility] [address] [id number] [address] [place] [address] 14 Feb, 2015 [facility] [address] [id number] [address] [place] [address] Feb, [facility] [address] [id number] [address] [place] [address] Jan, [facility] [address] [id number] [address] [place] [address] Jan, [facility] [address] [id number] [address] [place] [address] Jan, [facility] [address] [id number] [address] [place] [address] Jan, [facility] [address] [id number] [address] [place] [address] Jan, [facility] [address] [id number] [address] [place] [address] Jan, [facility] [address] [id number] [address] [place] [address] Dec, [facility] [address] [id number] [address] [place] [address] Dec, [facility] [address] [id number] [address] [place] [address] Dec, [facility] [address] [id number] [address] [place] [address] Dec, [facility] [address] [id number] [address] [place] [address] Nov, [facility] [address] [id number] [address] [place] [address] Nov, [facility] [address] [id number] [address] [place] [address] [place] [address] Nov, [facility] [address] [id number] [address] [place] [address], [place] [address] Nov, [facility] [address] [id number] [address] [place] [address], [place] [address] Nov, [facility] [address] [id number] [address] [place] [address], [place] [address] Nov, [facility] [address] [id number] [address] [place] [address], [place] [address] Oct, [facility] [address] [id number] [address] [place] [address], [place] [address] Oct, [facility] [address] [id number] [address] [place] [address], [place] [address] Oct, [facility] [address] [id number] [address] [place] [address], [place] [address] Oct, [facility] [address] [id number] [address] [place] [address], [place] [address] Oct, [facility] [address] [id number] [address] [place] [address], [place] [address] Oct, [facility] [address] [id number] [address] [place] [address], [place] [address] Sep, [facility] [address] [id number] [address] [place] [address], [place] [address] Sep, [facility] [address] [id number] [address] [place] [address], [place] [address] Sep, [facility] [address] [id number] [address] [place] [address], [place] [address] Sep, [facility] [address] [id number] [address] [place] [address], [place] [address] Aug, [facility] [address] [id number] [address] [place] [address], [place] [address] Aug, [facility] [address] [id number] [address] [place] [address], [place] [address] Apr, [facility] [address] [id number] [address] [place] [address], [place] [address] Apr, [facility] [address] [id number] [address] [place] [address], [place] [address] 17 Apr, 2014 [facility] [address] [id number] [address] [place] [address], [place] [address] Apr, [facility] [address] [id number] [address] [place] [address], [place] [address] Apr, [facility] [address] [id number] [address] [place] [address], [place] [address] Apr, [facility] [address] [id number] [address] [place] [address], [place] [address] March, [facility] [address] [id number] [address] [place] [address], [place] [address] March, [facility] [address] [id number] [address] [place] [address], [place] [address] Dec, [facility] [address] [id number] [address] [place] [address], [place] [address] Dec, [facility] [address] [id number] [address] [place] [address], [place] [address] Sep, [facility] [address] [id number] [address] [place] [address], [place] [address] Sep, [facility] [address] [id number] [address] [place] [address], [place] [address] Aug, [facility] [address] [id number] [address] [place] [address], [place] [address] Aug, [facility] [address] [id number] [address] [place] [address], [place] [address] Aug, [facility] [address] [id number] [address] [address] Aug, [facility] [address] [id number] [address] [place] [address], [place] [address] Aug, [facility] [address] [id number] [address] [place] [address], [place] [address] Aug, [facility] [address] [id number] [address] [place] [address], [place] [address] Aug, [facility] [address] [id number] [address] [place] [address] Aug, [facility] [address] [id number] [address] [place] [address], [place] [address] Aug, [facility] [address] [id number] [address] [place] [address] Aug, [facility] [address] [id number] [address] [place] [address], [place] [address] Jul, [facility] [address] [id number] [address] [place] [address], [place] [address] Jul, [facility] [address] [id number] [address] [place] [address], [place] [address] 05 Jul, 2013 [facility] [address] [id number] [address] [place] [address] Jun, [facility] [address] [id number] [address] [place] [address] May, [facility] [address] [id number] [address] [place] [address] May, [facility] [address] [id number] [address] [place] [address], [place] [address] May, [facility] [address] [id number] [address] [place] [address] Apr, [facility] [address] [id number] [address] [place] [address], [place] [address] March, [facility] [address] [id number] [address] [place] [address], [place] [address] March, [facility] [address] [id number] [address] [place] [address], [place] [address] Feb, [facility] [address] [id number] [address] [place] [address], [place] [address] Feb, [facility] [address] [id number] [address] [place] [address], [place] [address] Feb, [facility] [address] [id number] [address] [place] [address], [place] [address] Feb, [facility] [address] [id number] [address] [place] [address], [place] [address] Jan, [facility] [address] [id number] [address] [place] [address], [place] [address] Jan, [facility] [address] [id number] [address] [place] [address], [place] [address] Jan, [facility] [address] [id number] [address] [place] [address], [place] [address] Jan, [facility] [address] [id number] [address] [place] [address], [place] [address] Dec, [facility] [address] [id number] [address] [place] [address], [place] [address] Dec, [facility] [address] [id number] [address] [place] [address], [place] [address] Dec, [facility] [address] [id number] [address] [place] [address], [place] [address] Nov, [facility] [address] [id number] [address] [place] [address], [place] [address] Nov, [facility] [address] [id number] [address] [place] [address], [place] [address] Nov, [facility] [address] [id number] [address] [place] [address], [place] [address] Nov, [facility] [address] [id number] [address] [place] [address], [place] [address] Oct, [facility] [address] [id number] [address] [place] [address], [place] [address] Oct, [facility] [address] [id number] [address] [place] [address], [place] [address] Oct, [facility] [address] [id number] [address] [place] [address], [place] [id number] Oct, [facility] [address] [id number] [address] [place] [address], [place] [id number] Sep, [facility] [address] [id number] [address] [place] [address], [place] [id number] Sep, [facility] [address] [id number] [address] [place] [address], [place] [id number] Sep, [facility] [address] [id number] [address] [place] [address], [place] [id number] Sep, [facility] [address] [id number] [address] [place] [address], [place] [id number] Aug, [facility] [address] [id number] [address] [place] [address], [place] [id number] Aug, [facility] [address] [id number] [address] [place] [address], [place] [id number] Aug, [facility] [address] [id number] [address] [place] [address], [place] [id number] Jul, [facility] [address] [id number] [address] [place] [address], [place] [phone] Jun, [facility] [address] [id number] [address] [place] [address], [place] [id number] May, [facility] [address] [id number] [address] [place] [address], [place] [address] May, [facility] [address] [id number] [address] [place] [address], [place] [id number] May, [facility] [address] [id number] [address] [place] [address], [place] [id number] March, [facility] [address] [id number] [address] [place] [address], [place] [id number] March, [facility] [address] [id number] [address] [place] [address], [place] [id number] Feb, [facility] [address] [id number] [address] [place] [address], [place] [id number] Feb, [facility] [address] [id number] [address] [place] [address], [place] [id number] 24 Feb, 2012 [facility] [address] [id number] [address] [place] [address], [place] [id number] Feb, [facility] [address] [id number] [address] [place] [address], [place] [id number] Feb, [facility] [address] [id number] 45 [place] [address], [place] [id number] Feb, [facility] [address] [id number] [address] [place] [address], [place] [id number] Feb, [facility] [address] [id number] [address] [place] [address], [place] [id number] Feb, [facility] [address] [id number] [address] [place] [address], [place] [id number] Dec, [facility] [address] [id number] [address] [place] [address], [place] [id number] Nov, [facility] [address] [id number] [address] [place] [address], [place] [id number] Nov, [facility] [address] [id number] [address] [place] [address], [place] [id number] Nov, [facility] [address] [id number] [address] [place] [address], [place] [id number] Nov, [facility] [address] [id number] [address] [place] [address], [place] [id number] Nov, [facility] [address] [id number] [address] [place] [address], [place] [id number] Nov, [facility] [address] [id number] [address] [place] [address], [place] [id number] Oct, [facility] [address] [id number] [address] [place] [address], [place] [id number] Sep, [facility] [address] [id number] [address] [place] [address], [place] [id number] Sep, [facility] [address] [id number] [address] [place] [address], [place] [id number] Sep, [facility] [address] [id number] [address] [place] [address], [place] [id number] Sep, [facility] [address] [id number] [address] [place] [address], [place] [id number] Aug, [facility] [address] [id number] [address] [place] [address], [place] [id number] 24 Aug, 2011 [facility] [address] [id number] [address] [place] [address], [place] [id number] Aug, [facility] [address] [id number] [address] [place] [address], [place] [id number] Aug, [facility] [address] [id number] [address] [place] [address], [place] [id number] Aug, [facility] [address] [id number] [address] [place] [address], [place] [id number] Aug, [facility] [address] [id number] [address] [place] [address], [place] [id number] 17 Aug, 2011 [facility] [address] [id number] [address] [place] [address], [place] [id number] 10 Aug, 2011 [facility] [address] [id number] [address] [address] Aug, [facility] [address] [facility] [id number] [address] [place] [id number] Jul, [facility] [address] [facility] [id number] [address] [place] [id number] May, IMMUNIZATIONS No Known Immunizations SOCIAL HISTORY Never Assessed REASON FOR VISIT f/u [facility] PLAN OF CARE Activity Details Follow Up 4 Weeks Reason: f/u VITAL SIGNS Height 68 in 2018-07-02 Weight 202.9 lbs 2018-07-02 Heart Rate 108 bpm 2018-07-02 Respiratory Rate 20 2018-07-02 BMI 30.85 kg/m2 2018-07-02 Blood pressure systolic 128 mmHg 2018-07-02 Blood pressure diastolic 90 mmHg 2018-07-02 MEDICATIONS Medication Instructions Dosage Frequency Start Date End Date Duration S tatus Rexulti 1 MG Orally Once a day 1 tablet 24h Jul, 30 days Active Lipitor 10 mg Orally Once a day 1 tablet 24h 24 Jan, 2015 Active Lisinopril 20 mg Orally Once a day 1 tablet 24h 30 Active Cialis 20 mg Orally Once a day 1 tablet 24h 17 Sep, 2017 Active Simethicone 80 MG Orally Four times a day 1 tablet after m eals and at bedtime as needed 6h May, Active Bactrim DS 800-160 MG Orally Twice a day 1 tablet 12h 5 days Not-Taking Fish Oil 1200 MG Orally Once a day 2 capsule 24h Active Multivital Active Topiramate 100 mg Orally Once a day 1 tablet 24h Active Cymbalta 60 mg Orally twice a day 1 capsule 12h March, Active Protonix 40 mg Orally Once a day, voucher 1st fill. 1 tablet Active Levothyroxine Sodium 125 mcg 1 tablet 24h 30 Active Pantoprazole Sodium 40 MG TAKE ONE TABLET BY MOUTH ONCE DAILY 30 Not-Taking RESULTS No Results PROCEDURES No Known [...]
--- OUTSIDE RECORDS SUMMARY | 2020-02-07 09:24 | XMS REPORT ---
Author Author Britton FLEMING [facility] IN [facility] Address [address] [place] [address] Care Team Providers Care Box Strapper Name Role Phone NICKOLAS FLEMING Unavailable PROBLEMS Type Condition ICD9-CM Code [id number] Code Onset Dates Condition S tatus SNOMED Code Problem Tingling in extremities R20.2 Active 19252611 Problem Generalized anxiety disorder F41.1 A ctive 28602080 Problem Personality disorder in adult F60.9 Active 29695471 Problem Hypothyroidism (acquired) E03.9 Acti ve 435829776 Problem Depression, unspecified depression type F32.9 Active 28469515 Problem Gastroesophageal reflux disease without esophagitis K21.9 Active 662132679 Problem Drug-induced erectile dysfunction N52.2 Active 576649676 Problem Major depressive disorder, recurrent, moderate F33 .1 Active 25459414 Problem Primary insomnia F51.01 Active 397 2004 Problem Acute left-sided low back pain with left-sided sciatica M54.42 Active 467701747 Problem 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 Active 313358278 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 16756552 Problem Insomnia, unspecified type G47.00 Act mary 330228828 Problem Gastroesophageal reflux disease, esophagitis pre sence not specified K21.9 Active 036336292 Problem Anxiety F41.9 Active 59558618 Problem Acquired hypothyroidism E03.9 Active 332556804 Problem Secondary hypertension I15.9 Active 57890941 Problem Acute eczema L30.9 Active 7712399 02 Problem Hypercholesterolemia E78.0 Active 67031314 Problem Environmental allergies Z91.09 Active 841232767 ALLERGIES Substance Reaction Event Type Date Status Amoxicillin vomiting Drug Allergy Apr, Active ENCOUNTERS Encounter Location Date Diagnosis [facility] [address] [facility] [id number] [address] [place] [address] Jul, [facility] [address] [facility] [id number] [address] [place] [address] Jun, Generalized anxiety disorder F41.1 ; Major depressive disorder, recurrent, moderate F33.1 ; Primary insomnia F51.01 and Personality disorder in adult F60.9 [facility] [address] [facility] [id number] [address] [place] [address] May, Acquired hypothyroidism E03. 9 [facility] [address] [facility] [id number] [address] [place] [phone] 27 May, 2018 Hypothyroidism (acquired) E0 3.9 and Gastroesophageal reflux disease without esophagitis K21.9 [place] [address] [facility] [id number] [address] [place] [phone] Apr, [facility] [address] [facility] [id number] [address] [place] [address] Apr, Skin infection L08.9 [place] [address] [facility] [id number] [address] [place] [address] Apr, Generalized anxiety disorder F41.1 ; Major depressive disorder, recurrent, moderate F33.1 ; Primary insomnia F51.01 and Personality disorder in adult F60.9 [place] [address] [place] [id number] [address] [place] [address] March, Generalized anxiety disorder F41.1 ; Major depressive disorder, recurrent, moderate F33.1 and Personality disorder in adult F60.9 [place] [address] [facility] [id number] [address] [place] [address] Feb, [place] [address] [place] [id number] [address] [place] [address] Dec, Generalized anxiety disorder F41.1 ; Major depressive disorder, recurrent, moderate F33.1 and Personality disorder in adult F60.9 [facility] [address] [facility] [id number] [address] [place] [address] Dec, Acute left-sided low back pa in with left-sided sciatica M54.42 [place] [address] [id number] [address] [place] [address] Nov, [facility] [address] [facility] [id number] [address] [place] [address] Oct, Generalized anxiety disorder F41.1 ; Major depressive disorder, recurrent, moderate F33.1 and Personality disorder in adult F60.9 [facility] [address] [id number] [address] [place] [address] Sep, Acquired hypothyroidism E03. 9 ; Hypercholesterolemia E78.0 ; Generalized anxiety disorder F41.1 and Drug-induced erectile dysfunction N52.2 [facility] [address] [id number] [address] [place] [address] Sep, [facility] [address] [facility] [id number] [address] [place] [address] Sep, Acquired hypothyroidism E03. 9 ; Hypercholesterolemia E78.0 ; Generalized anxiety disorder F41.1 and Drug-induced erectile dysfunction N52.2 [facility] [address] [facility] [id number] [address] [place] [address] Sep, Generalized anxiety disorder F41.1 ; Major depressive disorder, recurrent, moderate F33.1 and Personality disorder in adult F60.9 [facility] [address] [id number] [address] [place] [id number] Aug, Dental examination Z01.20 [facility] [address] [id number] [address] [place] [id number] Aug, Dental caries K02.9 [facility] [address] [id number] [address] [place] [address] Aug, [facility] [address] [id number] [address] [place] [address] [id number] Aug, Dental examination Z01.20 [facility] [address] [id number] [address] [place] [address] Jul, Major depressive disorder, r ecurrent, moderate F33.1 [facility] [address] [place] [id number] [address] [place] [address] Jul, Generalized anxiety disorder F41.1 ; Major depressive disorder, recurrent, moderate F33.1 and Personality disorder in adult F60.9 [facility] [address] [place] [id number] [address] [place] [address] Jul, Generalized anxiety disorder F41.1 ; Major depressive disorder, recurrent, moderate F33.1 and Personality disorder in adult F60.9 [place] [address] [address] Jun, Generalized anxiety disorder F41.1 ; Major depressive disorder, recurrent, moderate F33.1 and Personality disorder in adult F60.9 [place] [address] [place] [id number] [address] [place] [address] Apr, Generalized anxiety disorder F41.1 ; Major depressive disorder, recurrent, moderate F33.1 and Personality disorder in adult F60.9 [place] [address] [place] [id number] [address] [place] [address] March, Acquired hypothyroidism E03. 9 [place] [address] [address] March, Acquired hypothyroidism E03. 9 and Left lower quadrant pain R10.32 [place] [address] [place] [id number] [address] [place] [address] March, Hypercholesterolemia E78.0 ; Acquired hypothyroidism E03.9 ; Insomnia, unspecified type G47.00 ; Secondary hypertension I15.9 ; Gastroesophageal reflux disease, esophagitis presence not specified K21.9 ; Tingling in extremities R20.2 ; Environmental allergies Z91.09 ; Depression, unspecified depression type F32.9 and Left lower quadrant pain R10.32 [place] [address] [place] [id number] [address] [place] [address] Feb, High risk sexual behavior Z7 2.51 [place] [address] [address] Feb, Major depressive disorder, r ecurrent, moderate F33.1 and Generalized anxiety disorder F41.1 [place] [address] [place] [id number] Dec, Major depressive disorder, r ecurrent, moderate F33.1 [place] [address] [address] Dec, [place] [address] [place] [address] Dec, Acquired hypothyroidism E03. 9 and High risk sexual behavior Z72.51 [place] [address] Dec, Major depressive disorder, r ecurrent, moderate F33.1 and Generalized anxiety disorder F41.[address] [address] Dec, Acquired hypothyroidism E03. 9 ; Secondary hypertension I15.9 and Acute eczema L30.9 [place] [address] [address] Nov, Acquired hypothyroidism E03. 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 ; Hypercholesterolemia E78.0 ; Gastroesophageal reflux disease, esophagitis presence not specified K21.9 ; Anxiety F41.9 and Secondary hypertension I15.9 [place] [address] [address] Oct, Major depressive disorder, r ecurrent, moderate F33.1 and Generalized anxiety disorder F41.1 [place] [id number] Aug, [place] [address] [address] Aug, Insomnia, unspecified type G 47.00 ; Acquired hypothyroidism E03.9 ; Hypercholesterolemia E78.0 and Gastroesophageal reflux disease, esophagitis presence not specified K21.9 [facility] [address] [address] Jul, [facility] [address] [address] 06 Jul, 2016 Major depressive disorder, r ecurrent, in partial remission F33.41 and Generalized anxiety disorder F41.1 [place] [address] [address] Jun, [place] [address] [address] Jun, Cervical pain (neck) M54.2 a nd Cervical neuropathic pain M54.12 [place] [address] [address] 14 Apr, 2016 Insomnia, unspecified type G 47.00 ; Acquired hypothyroidism E03.9 ; Hypercholesterolemia E78.0 ; 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 ; Depression, unspecified depression type F32.9 ; 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 ; Gastroesophageal reflux disease, esophagitis presence not specified K21.9 ; Anxiety F41.9 ; Secondary hypertension I15.9 and Post- nasal drainage R09.82 [place] [address] [place] [id number] [address] [place] [address] Apr, [place] [address] [address] March, [place] [address] [address] March, Unspecified hypothyroidism 2 44.9 and HTN (hypertension) 401.9 [place] [address] [address] March, [place] [address] [place] [id number] [address] [place] [phone] Dec, [facility] [address] [address] Nov, [facility] [address] [address] Sep, Generalized anxiety disorder F41.1 and Major depressive disorder, recurrent, in partial remission F33.41 [place] [address] [address] Jun, Unspecified hypothyroidism 2 44.9 ; Sciatica 724.3 ; Major depressive disorder, recurrent episode, in partial or unspecified remission 296.35 ; Combined hyperlipidemia 272.2 ; HTN (hypertension) 401.9 ; Hidrosis 780.8 ; Cat allergies 477.8 and Environmental allergies V15.09 [place] [address] [address] Jun, Major depressive disorder, r ecurrent episode, in partial or unspecified remission 296.35 ; Insomnia, unspecified 780.52 and Generalized anxiety disorder 300.02 [place] [address] [address] May, [facility] [address] [address] Apr, [place] [address] [address] Apr, Closed mallet fracture of di stal phalanx of ring finger 816.02 [place] [address] [address] March, Depression, major, recurrent , moderate 296.32 ; Generalized anxiety disorder 300.02 and Borderline personality disorder 301.83 [facility] [address] [address] Feb, [facility] [address] [address] Feb, [facility] [address] [address] Jan, [facility] [address] [id number] [address] [place] [address], [place] [address] Jan, [facility] [address] [id number] [address] [place] [address], [place] [address] Jan, [facility] [address] [id number] [address] [place] [address], [place] [address] Jan, [facility] [address] [id number] [address] [place] [address], [place] [address] Jan, [facility] [address] [id number] [address] [place] [address], [place] [address] Jan, [facility] [address] [id number] [address] [place] [address], [place] [address] Dec, [facility] [address] [id number] [address] [place] [address], [place] [address] Dec, [facility] [address] [id number] [address] [place] [address], [place] [address] Dec, [facility] [address] [id number] [address] [place] [address], [place] [address] Dec, [facility] [address] [id number] [address] [place] [address], [place] [address] Nov, [facility] [address] [id number] [address] [place] [address], [place] [address] Nov, [facility] [address] [id number] [address] [place] [address] Nov, [facility] [address] [id number] [address] [place] [address], [place] [address] Nov, [facility] [address] [id number] [address] [place] [address], [place] [address] Nov, [facility] [address] [id number] [address] [place] [address], [place] [address] Nov, [facility] [address] [id number] [address] [place] [address], [place] [address] Oct, [facility] [address] [id number] [address] [place] [address], [place] [address] Oct, [facility] [address] [id number] [address] [place] [address], [place] [address] Oct, [facility] [address] [id number] [address] [place] [address], [place] [address] Oct, [facility] [address] [id number] [address] [place] [address], [place] [address] Oct, [facility] [address] [id number] [address] [place] [address], [place] [address] Oct, [facility] [address] [id number] [address] [place] [address], [place] [address] Sep, [facility] [address] [id number] [address] [place] [address], [place] [address] Sep, [facility] [address] [id number] [address] [place] [address], [place] [address] Sep, [facility] [address] [id number] [address] [place] [address], [place] [address] Sep, [facility] [address] [id number] [address] [place] [address], [place] [address] Aug, [facility] [address] [id number] [address] [place] [address], [place] [address] Aug, [facility] [address] [id number] [address] [place] [address], [place] [address] Apr, [facility] [address] [id number] [address] [place] [address], [place] [address] Apr, [facility] [address] [id number] [address] [place] [address], [place] [address] Apr, [facility] [address] [id number] [address] [place] [address], [place] [address] Apr, [facility] [address] [id number] [address] [place] [address], [place] [address] Apr, [facility] [address] [id number] [address] [place] [address], [place] [address] Apr, [facility] [address] [id number] [address] [place] [address], [place] [address] March, [facility] [address] [id number] [address] [place] [address], [place] [address] March, [facility] [address] [id number] [address] [place] [address], [place] [address] Dec, [facility] [address] [id number] [address] [place] [address], [place] [address] Dec, [facility] [address] [id number] [address] [place] [address], [place] [address] Sep, [facility] [address] [id number] [address] [place] [address], [place] [address] Sep, [facility] [address] [id number] [address] [place] [address], [place] [address] Aug, [facility] [address] [id number] [address] [place] [address], [place] [address] Aug, [facility] [address] [id number] [address] [place] [address], [place] [address] Aug, [facility] [address] [id number] [address] [place] [address], [place] [address] Aug, [facility] [address] [id number] [address] [place] [address], [place] [address] Aug, [facility] [address] [id number] [address] [place] [address], [place] [address] Aug, [facility] [address] [id number] [address] [place] [address], [place] [address] Aug, [facility] [address] [id number] [address] [place] [address], [place] [address] Aug, [facility] [address] [id number] [address] [place] [address], [place] [address] Aug, [facility] [address] [id number] [address] [place] [address], [place] [address] Aug, [facility] [address] [id number] [address] [place] [address], [place] [address] Jul, [facility] [address] [id number] [address] [place] [address], [place] [address] Jul, [facility] [address] [id number] [address] [place] [address], [place] [address] Jul, [facility] [address] [id number] [address] [place] [address], [place] [address] Jun, [facility] [address] [id number] [address] [place] [address], [place] [address] May, [facility] [address] [id number] [address] [place] [address], [place] [address] May, [facility] [address] [id number] [address] [place] [address], [place] [address] May, [facility] [address] [id number] [address] [place] [address], [place] [address] Apr, [facility] [address] [id number] [address] [place] [address], [place] [address] March, [facility] [address] [id number] [address] [place] [address], [place] [address] March, [facility] [address] [id number] [address] [place] [address], [place] [address] 30 Feb, 2013 [facility] [address] [id number] [address] [place] [address], [place] [address] 18 Feb, 2013 [facility] [address] [id number] [address] [place] [address], [place] [address] Feb, [facility] [address] [id number] [address] [place] [address], [place] [address] 09 Feb, 2013 [facility] [address] [id number] [address] [place] [address], [place] [address] Jan, [facility] [address] [id number] [address] [place] [address], [place] [address] Jan, [facility] [address] [id number] [address] [place] [address], [place] [address] Jan, [facility] [address] [id number] [address] [place] [address], [place] [address] Jan, [facility] [address] [id number] [address] [place] [address], [place] [address] Dec, [facility] [address] [id number] [address] [place] [address], [place] [address] Dec, [facility] [address] [id number] [address] [place] [address], [place] [address] Dec, [facility] [address] [id number] [address] [place] [address], [place] [address] Nov, [facility] [address] [id number] [address] [place] [address], [place] [address] Nov, [facility] [address] [id number] [address] [place] [address], [place] [address] Nov, [facility] [address] [id number] [address] [place] [address], [place] [address] Nov, [facility] [address] [id number] [address] [place] [address], [place] [address] Oct, [facility] [address] [id number] [address] [place] [address], [place] [address] Oct, [facility] [address] [id number] [address] [place] [address], [place] [address] Oct, [facility] [address] [id number] [address] [place] [address], [place] [address] Oct, [facility] [address] [id number] [address] [place] [address], [place] [address] Sep, [facility] [address] [id number] [address] [place] [address], [place] [address] Sep, [facility] [address] [id number] [address] [place] [address], [place] [address] Sep, [facility] [address] [id number] [address] [place] [address], [place] [address] Sep, [facility] [address] [id number] [address] [place] [address], [place] [address] Aug, [facility] [address] [id number] [address] [place] [address], [place] [address] Aug, [facility] [address] [id number] [address] [place] [address], [place] [address] Aug, [facility] [address] [id number] [address] [place] [address], [place] [address] Jul, [facility] [address] [id number] [address] [place] [address], [place] [address] Jun, [facility] [address] [id number] [address] [place] [address], [place] [address] May, [facility] [address] [id number] [address] [place] [address], [place] [address] May, [facility] [address] [id number] [address] [place] [phone] May, [facility] [address] [id number] [address] [place] [address], [place] [address] March, [facility] [address] [id number] [address] [place] [address], [place] [address] March, [facility] [address] [id number] [address] [place] [address], [place] [address] Feb, [facility] [address] [id number] [address] [place] [id number] 30 Feb, 2012 [facility] [address] [id number] [address] [place] [address], [place] [address] 24 Feb, 2012 [facility] [address] [id number] [address] [place] [address], [place] [address] 17 Feb, 2012 [facility] [address] [id number] [address] [place] [address], [place] [address] Feb, [facility] [address] [id number] [address] [place] [address], [place] [address] 16 Feb, 2012 [facility] [address] [id number] [address] [place] [address], [place] [address] Feb, [facility] [address] [id number] [address] [place] [address], [place] [address] Feb, [facility] [address] [id number] [address] [place] [address], [place] [address] Dec, [facility] [address] [id number] [address] [place] [address], [place] [address] Nov, [facility] [address] [id number] [address] [place] [address], [place] [address] Nov, [facility] [address] [id number] [address] [place] [address], [place] [address] Nov, [facility] [address] [id number] [address] [place] [address], [place] [address] Nov, [facility] [address] [id number] [address] [place] [address], [place] [address] Nov, [facility] [address] [id number] [address] [place] [address], [place] [address] Nov, [facility] [address] [id number] [address] [place] [address], [place] [id number] 14 Oct, 2011 [facility] [address] [id number] [address] [place] [address], [place] [id number] Sep, [facility] [address] [id number] [address] [place] [phone] Sep, [facility] [address] [id number] [address] [place] [phone] Sep, [facility] [address] [id number] [address] [place] [phone] Sep, [facility] [address] [id number] [address] [place] [id number] Aug, [facility] [address] [id number] [address] [place] [phone] Aug, [facility] [address] [id number] [address] [place] [phone] Aug, [facility] [address] [id number] [address] [place] [phone] Aug, [facility] [address] [id number] [address] [place] [phone] Aug, [facility] [address] [id number] [address] [place] [phone] Aug, [facility] [address] [id number] [address] [place] [phone] Aug, [facility] [address] [id number] [address] [place] [phone] Aug, [facility] [address] [id number] [address] [place] [phone] Aug, [facility] [address] [id number] [address] [place] [phone] Jul, [facility] [address] [id number] [address] [place] [phone] May, IMMUNIZATIONS No Known Immunizations SOCIAL HISTORY Never Assessed REASON FOR VISIT pts left breast is red et swollen. nipple is pierced...has been since 1999 et otero snt changed the ring. been like this since yesterday. [email or web address] PLAN OF CARE Activity Details Follow Up prn Reason: VITAL SIGNS Height 68 in 2018-05-06 Weight 200.2 lbs 2018-05-06 Temperature 98.6 degrees Fahrenheit 2018-05-06 Heart Rate 104 bpm 2018-05-06 Respiratory Rate 20 2018-05-06 BMI 30.44 kg/m2 2018-05-06 Blood pressure systolic 116 mmHg 2018-05-06 Blood pressure diastolic 76 mmHg 2018-05-06 MEDICATIONS Medication Instructions Dosage Frequency Start Date End Date Duration S tatus Rexulti 0.5 MG Orally Once a day 1 tablet 24h Jul, Active Multivital Active Topiramate 100 mg Orally Once a day 1 tablet 24h Active Levothyroxine Sodium 125 mcg 1 tablet 24h 30 Active Cymbalta 60 mg Orally twice a day 1 capsule 12h March, Active Lisinopril 20 mg Orally Once a day 1 tablet 24h 30 Active Bactrim DS 800-160 MG Orally Twice a day 1 tablet 12h 5 days Active Amitriptyline HCl 10 mg Orally Once a day at bedtime 1 tablet Apr, 30 day(s) Active Fish Oil 1200 MG Orally Once a day 2 capsule 24h Active Cialis 20 mg Orally Once a day 1 tablet 24h Sep, Active Protonix 40 mg Orally Once a day, voucher 1st fill. 1 tablet Active Lipitor 10 mg Orally Once a day 1 tablet 24h Jan, Active RESULTS No Results PROCEDURES No Known [...]
--- OUTSIDE RECORDS SUMMARY | 2020-02-07 09:24 | XMS REPORT ---
Author [facility] Address [address] [place] [address] Care Team Providers Care Welt Treater Name Role Phone BRIDGETTE, XAVIER Unavailable PROBLEMS Type Condition ICD9-CM Code ECY44-UX Code Onset Dates Condition S tatus SNOMED Code Problem Tingling in extremities R20.2 Active 61134894 Problem Generalized anxiety disorder F41.1 A ctive 61144781 Problem Personality disorder in adult F60.9 Active 38610010 Problem Hypothyroidism (acquired) E03.9 Acti ve 144436587 Problem Depression, unspecified depression type F32.9 Active 22020726 Problem Gastroesophageal reflux disease without esophagitis K21.9 Active 428078081 Problem Drug-induced erectile dysfunction N52.2 Active 039292343 Problem Major depressive disorder, recurrent, moderate F33 .1 Active 97138144 Problem Primary insomnia F51.01 Active 397 2004 Problem Acute left-sided low back pain with left-sided sciatica M54.42 Active 302949340 Problem 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 Active 424326181 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 55785127 Problem Insomnia, unspecified type G47.00 Act mary [id number] Problem Gastroesophageal reflux disease, esophagitis pre sence not specified K21.9 Active 999616585 Problem Anxiety F41.9 Active 18325718 Problem Acquired hypothyroidism E03.9 Active 519433887 Problem Secondary hypertension I15.9 Active 28927252 Problem Acute eczema L30.9 Active 9586768 02 Problem Hypercholesterolemia E78.0 Active 18008284 Problem Environmental allergies Z91.09 Active 640003003 ALLERGIES No Information ENCOUNTERS Encounter Location Date Diagnosis [facility] [place] [address] [facility] [id number] [address] [place] [id number] 04 Jul, 2018 [facility] [place] [address] [facility] [id number] [address] [place] [phone] Jun, Generalized anxiety disorder F41.1 ; Major depressive disorder, recurrent, moderate F33.1 ; Primary insomnia F51.01 and Personality disorder in adult F60.9 [facility] [place] [address] [facility] [id number] [address] [place] [phone] May, Acquired hypothyroidism E03. 9 [facility] [place] [address] [facility] [id number] [address] [place] [id number] 27 May, 2018 Hypothyroidism (acquired) E0 3.9 and Gastroesophageal reflux disease without esophagitis K21.9 [facility] [place] [address] [facility] [id number] [address] [place] [id number] Apr, [facility] [address] [place] [id number] [place] [phone] Apr, Skin infection L08.9 [place] [address] [place] [id number] [address] [place] [id number] 05 Apr, 2018 Generalized anxiety disorder F41.1 ; Major depressive disorder, recurrent, moderate F33.1 ; Primary insomnia F51.01 and Personality disorder in adult F60.9 [place] [address] [place] [id number] [address] [place] [phone] March, Generalized anxiety disorder F41.1 ; Major depressive disorder, recurrent, moderate F33.1 and Personality disorder in adult F60.9 [place] [id number] [place] [id number] [address] [place] [phone] Feb, [facility] [place] [address] [place] [id number] [address] [place] [id number] Dec, Generalized anxiety disorder F41.1 ; Major depressive disorder, recurrent, moderate F33.1 and Personality disorder in adult F60.9 [facility] [address] [facility] [id number] [address] [place] [address] Dec, Acute left-sided low back pa in with left-sided sciatica M54.42 [facility] [place] [address] [place] [id number] [address] [place] [phone] Nov, [facility] [place] [address] [facility] [id number] [address] [place] [phone] Oct, Generalized anxiety disorder F41.1 ; Major depressive disorder, recurrent, moderate F33.1 and Personality disorder in adult F60.9 [facility] [place] [address] [id number] [address] [place] [phone] Sep, Acquired hypothyroidism E03. 9 ; Hypercholesterolemia E78.0 ; Generalized anxiety disorder F41.1 and Drug-induced erectile dysfunction N52.2 [facility] [place] [address] [id number] [address] [place] [phone] Sep, [facility] [place] [address] [id number] [address] [place] [phone] Sep, Acquired hypothyroidism E03. 9 ; Hypercholesterolemia E78.0 ; Generalized anxiety disorder F41.1 and Drug-induced erectile dysfunction N52.2 [facility] [place] [address] [id number] [address] [place] [phone] Sep, Generalized anxiety disorder F41.1 ; Major depressive disorder, recurrent, moderate F33.1 and Personality disorder in adult F60.9 [facility] [address] [id number] [address] [place] [id number] Aug, Dental examination Z01.20 [facility] [address] [id number] [address] [place] [id number] Aug, Dental caries K02.9 [facility] [place] [address] [id number] [address] [place] [id number] Aug, [facility] [address] [id number] [address] [place] [address] [id number] Aug, Dental examination Z01.20 [facility] [place] [address] [id number] [address] [place] [phone] Jul, Major depressive disorder, r ecurrent, moderate F33.1 [facility] [place] [address] [id number] [address] [place] [phone] Jul, Generalized anxiety disorder F41.1 ; Major depressive disorder, recurrent, moderate F33.1 and Personality disorder in adult F60.9 [place] [address] [address] Jul, Generalized anxiety disorder F41.1 ; Major depressive disorder, recurrent, moderate F33.1 and Personality disorder in adult F60.9 [place] [address] [address] Jun, Generalized anxiety disorder F41.1 ; Major depressive disorder, recurrent, moderate F33.1 and Personality disorder in adult F60.9 [place] [address] [address] Apr, Generalized anxiety disorder F41.1 ; Major depressive disorder, recurrent, moderate F33.1 and Personality disorder in adult F60.9 [place] [address] [address] March, Acquired hypothyroidism E03. 9 [place] [address] [address] March, Acquired hypothyroidism E03. 9 and Left lower quadrant pain R10.32 [place] [address] [address] March, Hypercholesterolemia E78.0 ; Acquired hypothyroidism E03.9 ; Insomnia, unspecified type G47.00 ; Secondary hypertension I15.9 ; Gastroesophageal reflux disease, esophagitis presence not specified K21.9 ; Tingling in extremities R20.2 ; Environmental allergies Z91.09 ; Depression, unspecified depression type F32.9 and Left lower quadrant pain R10.32 [place] [address] [address] Feb, High risk sexual behavior Z7 2.51 [place] [address] [place] [id number] [address] [place] [phone] Feb, Major depressive disorder, r ecurrent, moderate F33.1 and Generalized anxiety disorder F41.1 [place] [address] [place] [id number] [address] [place] [phone] Dec, Major depressive disorder, r ecurrent, moderate F33.1 [place] [address] [place] [id number] [address] [place] [phone] Dec, [place] [address] [address] Dec, Acquired hypothyroidism E03. 9 and High risk sexual behavior Z72.51 [place] [address] [address] Dec, Major depressive disorder, r ecurrent, moderate F33.1 and Generalized anxiety disorder F41.1 [place] [address] [address] Dec, Acquired hypothyroidism E03. 9 ; Secondary hypertension I15.9 and Acute eczema L30.9 [place] [address] [address] Nov, Acquired hypothyroidism E03. 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 ; Hypercholesterolemia E78.0 ; Gastroesophageal reflux disease, esophagitis presence not specified K21.9 ; Anxiety F41.9 and Secondary hypertension I15.9 [place] [address] [address] Oct, Major depressive disorder, r ecurrent, moderate F33.1 and Generalized anxiety disorder F41.1 [place] [address] [address] Aug, [address] [address] Aug, Insomnia, unspecified type G 47.00 ; Acquired hypothyroidism E03.9 ; Hypercholesterolemia E78.0 and Gastroesophageal reflux disease, esophagitis presence not specified K21.9 [place] [address] [address] 15 Jul, 2016 [facility] [place] [address] [address] Jul, Major depressive disorder, r ecurrent, in partial remission F33.41 and Generalized anxiety disorder F41.1 [place] [address] [address] Jun, [facility] [place] [address] [address] Jun, Cervical pain (neck) M54.2 a nd Cervical neuropathic pain M54.12 [place] [address] [address] 14 Apr, 2016 Insomnia, unspecified type G 47.00 ; Acquired hypothyroidism E03.9 ; Hypercholesterolemia E78.0 ; 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 ; Depression, unspecified depression type F32.9 ; 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 ; Gastroesophageal reflux disease, esophagitis presence not specified K21.9 ; Anxiety F41.9 ; Secondary hypertension I15.9 and Post- nasal drainage R09.82 [place] [address] [address] Apr, [facility] [place] [address] [address] March, [place] [address] [address] March, Unspecified hypothyroidism 2 44.9 and HTN (hypertension) 401.9 [place] [address] [address] March, [facility] [place] [address] [address] Dec, [facility] [place] [address] [address] Nov, [place] [address] [address] Sep, Generalized anxiety disorder F41.1 and Major depressive disorder, recurrent, in partial remission F33.41 [facility] [place] [address] [address] Jun, Unspecified hypothyroidism 2 44.9 ; Sciatica 724.3 ; Major depressive disorder, recurrent episode, in partial or unspecified remission 296.35 ; Combined hyperlipidemia 272.2 ; HTN (hypertension) 401.9 ; Hidrosis 780.8 ; Cat allergies 477.8 and Environmental allergies V15.09 [place] [address] [address] Jun, Major depressive disorder, r ecurrent episode, in partial or unspecified remission 296.35 ; Insomnia, unspecified 780.52 and Generalized anxiety disorder 300.02 [place] [address] [address] May, [facility] [place] [address] [address] Apr, [place] [address] [address] Apr, Closed mallet fracture of di stal phalanx of ring finger 816.02 [place] [address] [address] March, Depression, major, recurrent , moderate 296.32 ; Generalized anxiety disorder 300.02 and Borderline personality disorder 301.83 [place] [address] [address] Feb, [facility] [place] [address] [address] Feb, [facility] [place] [address] [address] Jan, [facility] [place] [address] [address] Jan, [facility] [address] [id number] [address] [place] [address], [place] [address] Jan, [facility] [address] [id number] [address] [place] [address], [place] [address] Jan, [facility] [address] [id number] [address] [place] [address], [place] [address] Jan, [facility] [address] [id number] [address] [place] [address], [place] [address] Jan, [facility] [address] [id number] [address] [place] [address], [place] [address] Dec, [facility] [address] [id number] [address] [place] [address], [place] [address] Dec, [facility] [address] [id number] [address] [place] [address], [place] [address] Dec, [facility] [address] [id number] [address] [place] [address], [place] [address] Dec, [facility] [address] [id number] [address] [place] [address], [place] [address] Nov, [facility] [address] [id number] [address] [place] [address], [place] [address] Nov, [facility] [address] [id number] [address] [place] [address], [place] [address] Nov, [facility] [address] [id number] [address] [place] [address] Nov, [facility] [address] [id number] [address] [place] [address], [place] [address] Nov, [facility] [address] [id number] [address] [place] [address], [place] [address] Nov, [facility] [address] [id number] [address] [place] [address], [place] [address] Oct, [facility] [address] [id number] [address] [place] [address], [place] [address] Oct, [facility] [address] [id number] [address] [place] [address], [place] [address] Oct, [facility] [address] [id number] [address] [place] [address], [place] [address] Oct, [facility] [address] [id number] [address] [place] [address], [place] [address] Oct, [facility] [address] [id number] [address] [place] [address], [place] [address] Oct, [facility] [address] [id number] [address] [place] [address], [place] [address] Sep, [facility] [address] [id number] [address] [place] [address], [place] [address] Sep, [facility] [address] [id number] [address] [place] [address], [place] [address] Sep, [facility] [address] [id number] [address] [place] [address], [place] [address] Sep, [facility] [address] [id number] [address] [place] [address], [place] [address] Aug, [facility] [address] [id number] [address] [place] [address], [place] [address] Aug, [facility] [address] [id number] [address] [place] [address], [place] [address] Apr, [facility] [address] [id number] [address] [place] [address], [place] [address] Apr, [facility] [address] [id number] [address] [place] [address], [place] [address] Apr, [facility] [address] [id number] [address] [place] [address], [place] [address] 17 Apr, 2014 [facility] [address] [id number] [address] [place] [address], [place] [address] Apr, [facility] [address] [id number] [address] [place] [address], [place] [address] Apr, [facility] [address] [id number] [address] [place] [address], [place] [address] March, [facility] [address] [id number] [address] [place] [address], [place] [address] March, [facility] [address] [id number] [address] [place] [address], [place] [address] Dec, [facility] [address] [id number] [address] [place] [address], [place] [address] Dec, [facility] [address] [id number] [address] [place] [address], [place] [address] Sep, [facility] [address] [id number] [address] [place] [address], [place] [address] Sep, [facility] [address] [id number] [address] [place] [address], [place] [address] Aug, [facility] [address] [id number] [address] [place] [address], [place] [address] Aug, [facility] [address] [id number] [address] [place] [address], [place] [address] Aug, [facility] [address] [id number] [address] [place] [address] Aug, [facility] [address] [id number] [address] [place] [address] Aug, [facility] [address] [id number] [address] [place] [address], [place] [address] Aug, [facility] [address] [id number] [address] [place] [address], [place] [address] Aug, [facility] [address] [id number] [address] [place] [address], [place] [address] Aug, [facility] [address] [id number] [address] [place] [address], [place] [address] Aug, [facility] [address] [id number] [address] [place] [address], [place] [address] Aug, [facility] [address] [id number] [address] [place] [address], [place] [address] 27 Jul, 2013 [facility] [address] [id number] [address] [place] [address], [place] [address] Jul, [facility] [address] [id number] [address] [place] [address], [place] [address] 05 Jul, 2013 [facility] [address] [id number] [address] [place] [address], [place] [address] Jun, [facility] [address] [id number] [address] [place] [address], [place] [address] May, [facility] [place] [address] [id number] [address] [place] [address], [place] [address] May, [facility] [place] [address] [id number] [address] [place] [address], [place] [address] May, [facility] [place] [address] [id number] [address] [place] [address], [place] [address] Apr, [facility] [address] [id number] [address] [place] [address], [place] [address] March, [facility] [place] [address] [id number] [address] [place] [address], [place] [address] March, [facility] [address] [id number] [address] [place] [address], [place] [address] Feb, [facility] [address] [id number] [address] [place] [address], [place] [address] Feb, [facility] [address] [id number] [address] [place] [address], [place] [address] Feb, [facility] [address] [id number] [address] [place] [address], [place] [address] Feb, [facility] [place] [address] [id number] [address] [place] [address], [place] [address] Jan, [facility] [address] [id number] [address] [place] [address], [place] [address] Jan, [facility] [address] [id number] [address] [place] [address], [place] [address] Jan, [facility] [address] [id number] [address] [place] [address], [place] [address] Jan, [facility] [address] [id number] [address] [place] [address], [place] [address] Dec, [facility] [address] [id number] [address] [place] [address], [place] [address] Dec, [facility] [address] [id number] [address] [place] [address], [place] [address] Dec, [facility] [address] [id number] [address] [place] [address], [place] [address] Nov, [facility] [place] [address] [id number] [address] [place] [address], [place] [address] Nov, [facility] [place] [address] [id number] [address] [place] [address], [place] [address] Nov, [facility] [address] [id number] [address] [place] [address], [place] [address] Nov, [facility] [address] [id number] [address] [place] [address], [place] [address] Oct, [facility] [address] [id number] [address] [place] [address], [place] [address] Oct, [facility] [address] [id number] [address] [place] [address], [place] [id number] Oct, [facility] [address] [id number] [address] [place] [address], [place] [address] Oct, [facility] [address] [id number] [address] [place] [address], [place] [address] Sep, [facility] [address] [id number] [address] [place] [address], [place] [address] Sep, [facility] [address] [id number] [address] [place] [address], [place] [address] Sep, [facility] [address] [id number] [address] [place] [address], [place] [address] Sep, [facility] [address] [id number] [address] [place] [address], [place] [id number] Aug, [facility] [address] [id number] [address] [place] [address], [place] [address] Aug, [facility] [address] [id number] [address] [place] [address], [place] [address] Aug, [facility] [address] [id number] [address] [place] [address], [place] [address] Jul, [facility] [address] [id number] [address] [place] [address], [place] [address] Jun, [facility] [address] [id number] [address] [place] [address], [place] [address] May, [facility] [address] [id number] [address] [place] [address], [place] [address] May, [facility] [address] [id number] [address] [place] [address], [place] [address] May, [facility] [address] [id number] [address] [place] [address], [place] [address] March, [facility] [address] [id number] [address] [place] [address], [place] [address] March, [facility] [address] [id number] [address] [place] [address], [place] [address] Feb, [facility] [address] [id number] [address] [place] [address], [place] [address] Feb, [facility] [address] [id number] [address] [place] [address], [place] [address] 24 Feb, 2012 [facility] [address] [id number] [address] [place] [address], [place] [id number] 17 Feb, 2012 [facility] [address] [id number] [address] [place] [address], [place] [address] 16 Feb, 2012 [facility] [address] [id number] [address] [place] [address], [place] [address] 16 Feb, 2012 [facility] [facility] [address] [id number] [address] [place] [address], [place] [id number] Feb, [facility] [address] [id number] [address] [place] [address], [place] [id number] Feb, [facility] [address] [id number] [address] [place] [address], [place] [id number] Dec, [facility] [address] [id number] [address] [place] [address], [place] [id number] Nov, [facility] [address] [id number] [address] [place] [address], [place] [id number] Nov, [facility] [address] [id number] [address] [place] [address], [place] [id number] Nov, [facility] [address] [id number] [address] [place] [address], [place] [id number] Nov, [facility] [address] [id number] [address] [place] [address], [place] [id number] Nov, [facility] [address] [id number] [address] [place] [address], [place] [id number] Nov, [facility] [address] [id number] [address] [place] [address], [place] [id number] Oct, [facility] [address] [id number] [address] [place] [address], [place] [id number] Sep, [facility] [address] [id number] [address] [place] [address], [place] [id number] Sep, [facility] [place] [address] [id number] [address] [place] [id number] Sep, [facility] [place] [address] [id number] [address] [place] [phone] Sep, [facility] [place] [address] [id number] [address] [place] [phone] Aug, [facility] [place] [address] [id number] [address] [place] [phone] Aug, [facility] [place] [address] [id number] [address] [place] [phone] Aug, [facility] [place] [address] [id number] [address] [place] [id number] Aug, [facility] [place] [address] [id number] [address] [place] [phone] Aug, [facility] [place] [address] [id number] [address] [place] [id number] Aug, [facility] [place] [address] [id number] [address] [place] [id number] Aug, [facility] [place] [address] [id number] [address] [place] [id number] Aug, [facility] [place] [address] [id number] [address] [place] [phone] Aug, [facility] [place] [address] [id number] [address] [place] [id number] Jul, [facility] [place] [address] [id number] [address] [place] [phone] May, IMMUNIZATIONS No Known Immunizations SOCIAL HISTORY [...]
--- OUTSIDE RECORDS SUMMARY | 2020-02-07 09:24 | XMS REPORT ---
Author Author Britton MARQUEZ Organization [facility] Address [address] [place] [address] Care Team Providers Care Technical Documentation Specialist Name Role Phone JABIER MARQUEZ Unavailable PROBLEMS Type Condition ICD9-CM Code [id number] Code Onset Dates Condition S tatus SNOMED Code Problem Tingling in extremities R20.2 Active 99957492 Problem Generalized anxiety disorder F41.1 A ctive 57909254 Problem Personality disorder in adult F60.9 Active 74259388 Problem Hypothyroidism (acquired) E03.9 Acti ve 383764681 Problem Depression, unspecified depression type F32.9 Active 76422104 Problem Gastroesophageal reflux disease without esophagitis K21.9 Active 079005792 Problem Drug-induced erectile dysfunction N52.2 Active 664851171 Problem Major depressive disorder, recurrent, moderate F33 .1 Active 34624847 Problem Primary insomnia F51.01 Active 397 2004 Problem Acute left-sided low back pain with left-sided sciatica M54.42 Active 260596156 Problem 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 Active 344123046 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 91673698 Problem Insomnia, unspecified type G47.00 Act mary 632476031 Problem Gastroesophageal reflux disease, esophagitis pre sence not specified K21.9 Active 840763750 Problem Anxiety F41.9 Active 09593491 Problem Acquired hypothyroidism E03.9 Active 842921285 Problem Secondary hypertension I15.9 Active 79398279 Problem Acute eczema L30.9 Active 6080980 02 Problem Hypercholesterolemia E78.0 Active 81035748 Problem Environmental allergies Z91.09 Active 457724223 ALLERGIES Substance Reaction Event Type Date Status Amoxicillin vomiting Drug Allergy May, Active ENCOUNTERS Encounter Location Date Diagnosis [facility] [address] [facility] [id number] [address] [place] [address] Sep, [facility] [address] [facility] [id number] [address] [place] [phone] 10 Jul, 2018 Generalized anxiety disorder F41.1 [facility] [address] [place] [id number] [place] [address] 04 Jul, 2018 Generalized anxiety disorder F41.1 ; Major depressive disorder, recurrent, moderate F33.1 and Personality disorder in adult F60.9 [facility] [address] [place] [id number] [address] [place] [address] Jun, Generalized anxiety disorder F41.1 ; Major depressive disorder, recurrent, moderate F33.1 ; Primary insomnia F51.01 and Personality disorder in adult F60.9 [facility] [id number] [place] [address] May, Acquired hypothyroidism E03. 9 [facility] [id number] [place] [address] May, Hypothyroidism (acquired) E0 3.9 and Gastroesophageal reflux disease without esophagitis K21.9 [facility] [id number] [place] [address] Apr, [facility] [id number] [place] [address] Apr, Skin infection L08.9 [facility] [address] [address] [id number] [address] [place] [phone] 05 Apr, 2018 Generalized anxiety disorder F41.1 ; Major depressive disorder, recurrent, moderate F33.1 ; Primary insomnia F51.01 and Personality disorder in adult F60.9 [facility] [id number] [place] [address] March, Generalized anxiety disorder F41.1 ; Major depressive disorder, recurrent, moderate F33.1 and Personality disorder in adult F60.9 [facility] [address] [address] [id number] [address] [place] [address] Feb, [facility] [id number] [place] [address] Dec, Generalized anxiety disorder F41.1 ; Major depressive disorder, recurrent, moderate F33.1 and Personality disorder in adult F60.9 [facility] [address] [facility] [id number] [address] [place] [address] 06 Dec, 2017 Acute left-sided low back pa in with left-sided sciatica M54.42 [facility] [address] [facility] [id number] [address] [place] [address] Nov, [facility] [address] [facility] [id number] [address] [place] [address] Oct, Generalized anxiety disorder F41.1 ; Major depressive disorder, recurrent, moderate F33.1 and Personality disorder in adult F60.9 [facility] [address] [facility] [id number] [address] [place] [address] Sep, Acquired hypothyroidism E03. 9 ; Hypercholesterolemia E78.0 ; Generalized anxiety disorder F41.1 and Drug-induced erectile dysfunction N52.2 [facility] [address] [id number] [address] [place] [address] Sep, [facility] [address] [facility] [id number] [address] [place] [address] Sep, Acquired hypothyroidism E03. 9 ; Hypercholesterolemia E78.0 ; Generalized anxiety disorder F41.1 and Drug-induced erectile dysfunction N52.2 [facility] [address] [facility] [id number] [address] [place] [address] Sep, Generalized anxiety disorder F41.1 ; Major depressive disorder, recurrent, moderate F33.1 and Personality disorder in adult F60.9 [facility] [address] [id number] [address] [place] [id number] Aug, Dental examination Z01.20 [facility] [address] [id number] [address] [place] [id number] Aug, Dental caries K02.9 [facility] [address] [facility] [id number] [address] [place] [address] Aug, [facility] [address] [id number] [address] [place] [address] [id number] 10 Aug, [address] [facility] [address] [place] [id number] [address] [place] [address] 20 Jul, 2017 Major depressive disorder, r ecurrent, moderate F33.1 [facility] [address] [id number] [address] [place] [address] 19 Jul, 2017 Generalized anxiety disorder F41.1 ; Major depressive disorder, recurrent, moderate F33.1 and Personality disorder in adult F60.9 [place] [id number] [place] [address] 08 Jul, 2017 Generalized anxiety disorder F41.1 ; Major depressive disorder, recurrent, moderate F33.1 and Personality disorder in adult F60.9 [place] [address] [place] [id number] [address] [place] [address] Jun, Generalized anxiety disorder F41.1 ; Major depressive disorder, recurrent, moderate F33.1 and Personality disorder in adult F60.9 [place] [address] [place] [id number] [address] [place] [address] Apr, Generalized anxiety disorder F41.1 ; Major depressive disorder, recurrent, moderate F33.1 and Personality disorder in adult F60.9 [place] [address] [place] [id number] [address] [place] [address] March, Acquired hypothyroidism E03. 9 [place] [address] [place] [id number] [address] [place] [address] March, Acquired hypothyroidism E03. 9 and Left lower quadrant pain R10.32 [place] [address] [place] [id number] [address] [place] [address] March, Hypercholesterolemia E78.0 ; Acquired hypothyroidism E03.9 ; Insomnia, unspecified type G47.00 ; Secondary hypertension I15.9 ; Gastroesophageal reflux disease, esophagitis presence not specified K21.9 ; Tingling in extremities R20.2 ; Environmental allergies Z91.09 ; Depression, unspecified depression type F32.9 and Left lower quadrant pain R10.32 [place] [address] [place] [id number] Feb, High risk sexual behavior Z7 2.51 [place] [address] [place] [id number] 13 Feb, 2017 Major depressive disorder, r ecurrent, moderate F33.1 and Generalized anxiety disorder F41.1 [place] [address] [place] [id number] Dec, Major depressive disorder, r ecurrent, moderate F33.1 [place] [address] [place] [id number] 17 Dec, 2016 [place] [address] [address] 16 Dec, 2016 Acquired hypothyroidism E03. 9 and High risk sexual behavior Z72.51 [place] [address] [address] 07 Dec, 2016 Major depressive disorder, r ecurrent, moderate F33.1 and Generalized anxiety disorder F41.1 [place] [address] [place] [id number] 07 Dec, 2016 Acquired hypothyroidism E03. 9 ; Secondary hypertension I15.9 and Acute eczema L30.9 [place] [id number] Nov, Acquired hypothyroidism E03. 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 ; Hypercholesterolemia E78.0 ; Gastroesophageal reflux disease, esophagitis presence not specified K21.9 ; Anxiety F41.9 and Secondary hypertension I15.9 [place] [address] [address] Oct, Major depressive disorder, r ecurrent, moderate F33.1 and Generalized anxiety disorder F41.1 [place] [address] [facility] [id number] [address] [place] [phone] Aug, [place] [address] [place] [id number] [place] [address] Aug, Insomnia, unspecified type G 47.00 ; Acquired hypothyroidism E03.9 ; Hypercholesterolemia E78.0 and Gastroesophageal reflux disease, esophagitis presence not specified K21.9 [place] [address] [address] Jul, [place] [address] [address] Jul, Major depressive disorder, r ecurrent, in partial remission F33.41 and Generalized anxiety disorder F41.1 [place] [address] [place] [id number] [place] [address] Jun, [place] [address] [address] Jun, Cervical pain (neck) M54.2 a nd Cervical neuropathic pain M54.12 [place] [address] [address] 14 Apr, 2016 Insomnia, unspecified type G 47.00 ; Acquired hypothyroidism E03.9 ; Hypercholesterolemia E78.0 ; 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 ; Depression, unspecified depression type F32.9 ; 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 [address] [address] Dec, [place] [address] [address] Nov, [place] [address] [address] Sep, Generalized anxiety disorder F41.1 and Major depressive disorder, recurrent, in partial remission F33.[address] [address] Jun, Unspecified hypothyroidism 2 44.9 ; Sciatica 724.3 ; Major depressive disorder, recurrent episode, in partial or unspecified remission 296.35 ; Combined hyperlipidemia 272.2 ; HTN (hypertension) 401.9 ; Hidrosis 780.8 ; Cat allergies 477.8 and Environmental allergies V15.09 [place] [address] [address] Jun, Major depressive disorder, r ecurrent episode, in partial or unspecified remission 296.35 ; Insomnia, unspecified 780.52 and Generalized anxiety disorder 300.02 [place] [address] [address] May, [place] [address] [address] Apr, [place] [address] [address] Apr, Closed mallet fracture of di stal phalanx of ring finger 816.02 [place] [address] [address] March, Depression, major, recurrent , moderate 296.32 ; Generalized anxiety disorder 300.02 and Borderline personality disorder 301.83 [place] [address] [place] [address] 14 Feb, 2015 [facility] [address] [id number] [address] [place] [address], [place] [address] Feb, [facility] [address] [id number] [address] [place] [address], [place] [address] Jan, [facility] [address] [id number] [address] [place] [address], [place] [address] Jan, [facility] [address] [id number] [address] [place] [address], [place] [address] Jan, [facility] [address] [id number] [address] [place] [address], [place] [address] Jan, [facility] [address] [id number] [address] [place] [address], [place] [address] Jan, [facility] [address] [id number] [address] [place] [address], [place] [address] Jan, [facility] [address] [id number] [address] [place] [address], [place] [address] Dec, [facility] [address] [id number] [address] [place] [address], [place] [address] Dec, [facility] [address] [id number] [address] [place] [address], [place] [address] Dec, [facility] [address] [id number] [address] [place] [address], [place] [address] Dec, [facility] [address] [id number] [address] [place] [address], [place] [address] Nov, [facility] [address] [id number] [address] [place] [address], [place] [address] Nov, [facility] [address] [id number] [address] [place] [address], [place] [address] Nov, [facility] [address] [id number] [address] [place] [address], [place] [address] Nov, [facility] [address] [id number] [address] [place] [address], [place] [address] Nov, [facility] [place] [facility] [address] [id number] [address] [place] [address], [place] [address] Nov, [facility] [address] [id number] [address] [place] [address], [place] [address] Oct, [facility] [place] [facility] [address] [id number] [address] [place] [address], [place] [address] Oct, [facility] [address] [id number] [address] [place] [address], [place] [address] Oct, [facility] [place] [facility] [address] [id number] [address] [place] [address], [place] [address] Oct, [facility] [address] [id number] [address] [place] [address], [place] [address] Oct, [facility] [address] [id number] [address] [place] [address], [place] [address] Oct, [facility] [place] [facility] [address] [id number] [address] [place] [address], [place] [address] Sep, [facility] [place] [facility] [address] [id number] [address] [place] [address], [place] [address] Sep, [facility] [place] [facility] [address] [id number] [address] [place] [address], [place] [address] Sep, [facility] [place] [facility] [address] [id number] [address] [place] [address] Sep, [facility] [place] [facility] [address] [id number] [address] [place] [address], [place] [address] Aug, [facility] [place] [facility] [address] [id number] [address] [place] [address], [place] [address] Aug, [facility] [place] [facility] [address] [id number] [address] [place] [address], [place] [address] Apr, [facility] [place] [facility] [address] [id number] [address] [place] [address] Apr, [facility] [address] [id number] [address] [place] [address], [place] [address] Apr, [facility] [place] [facility] [address] [id number] [address] [place] [address], [place] [address] 17 Apr, 2014 [facility] [address] [id number] [address] [place] [address], [place] [address] Apr, [facility] [place] [facility] [address] [id number] [address] [place] [address], [place] [address] Apr, [facility] [address] [id number] [address] [place] [address], [place] [address] March, [facility] [place] [facility] [address] [id number] [address] [place] [address], [place] [address] March, [facility] [address] [id number] [address] [place] [address], [place] [address] Dec, [facility] [place] [facility] [address] [id number] [address] [place] [address], [place] [address] Dec, [facility] [address] [id number] [address] [place] [address], [place] [address] Sep, [facility] [address] [id number] [address] [place] [address], [place] [address] Sep, [facility] [address] [id number] [address] [place] [address], [place] [address] Aug, [facility] [address] [id number] [address] [place] [address], [place] [address] Aug, [facility] [address] [id number] [address] [place] [address], [place] [address] Aug, [facility] [place] [facility] [address] [id number] [address] [place] [address], [place] [address] Aug, [facility] [address] [id number] [address] [place] [address], [place] [address] Aug, [facility] [place] [facility] [address] [id number] [address] [place] [address], [place] [address] Aug, [facility] [address] [id number] [address] [place] [address], [place] [address] Aug, [facility] [address] [id number] [address] [place] [address], [place] [address] Aug, [facility] [address] [id number] [address] [place] [address], [place] [address] Aug, [facility] [address] [id number] [address] [place] [address], [place] [address] Aug, [facility] [address] [id number] [address] [place] [address], [place] [address] Jul, [facility] [address] [id number] [address] [place] [address], [place] [address] Jul, [facility] [address] [id number] [address] [place] [address], [place] [address] Jul, [facility] [address] [id number] [address] [place] [address], [place] [address] Jun, [facility] [address] [id number] [address] [place] [address], [place] [address] May, [facility] [address] [id number] [address] [place] [address], [place] [address] May, [facility] [address] [id number] [address] [place] [address], [place] [address] May, [facility] [address] [id number] [address] [place] [address], [place] [address] Apr, [facility] [address] [id number] [address] [place] [address], [place] [address] March, [facility] [address] [id number] [address] [place] [address], [place] [address] March, [facility] [address] [id number] [address] [place] [address], [place] [address] 30 Feb, 2013 [facility] [address] [id number] [address] [place] [address], [place] [address] 18 Feb, 2013 [facility] [address] [id number] [address] [place] [address], [place] [address] Feb, [facility] [address] [id number] [address] [place] [address], [place] [address] Feb, [facility] [address] [id number] [address] [place] [address], [place] [address] Jan, [facility] [address] [id number] [address] [place] [address], [place] [address] Jan, [facility] [address] [id number] [address] [place] [address], [place] [address] Jan, [facility] [address] [id number] [address] [place] [address], [place] [address] Jan, [facility] [address] [id number] [address] [place] [address], [place] [address] Dec, [facility] [address] [id number] [address] [place] [address], [place] [address] Dec, [facility] [address] [id number] [address] [place] [address], [place] [address] Dec, [facility] [address] [id number] [address] [place] [address], [place] [address] Nov, [facility] [address] [id number] [address] [place] [address], [place] [address] Nov, [facility] [address] [id number] [address] [place] [address], [place] [address] Nov, [facility] [address] [id number] [address] [place] [address], [place] [address] Nov, [facility] [address] [id number] [address] [place] [address], [place] [address] Oct, [facility] [address] [id number] [address] [place] [address], [place] [address] Oct, [facility] [address] [id number] [address] [place] [address], [place] [address] Oct, [facility] [address] [id number] [address] [place] [address], [place] [address] Oct, [facility] [address] [id number] [address] [place] [address], [place] [address] Sep, [facility] [address] [id number] [address] [place] [address], [place] [address] Sep, [facility] [address] [id number] [address] [place] [address], [place] [address] Sep, [facility] [address] [id number] [address] [place] [address], [place] [address] Sep, [facility] [address] [id number] [address] [place] [address], [place] [address] Aug, [facility] [address] [id number] [address] [place] [address], [place] [address] Aug, [facility] [address] [id number] [address] [place] [address], [place] [address] Aug, [facility] [address] [id number] [address] [place] [address], [place] [address] Jul, [facility] [address] [id number] [address] [place] [address], [place] [address] Jun, [facility] [address] [id number] [address] [place] [address], [place] [address] May, [facility] [address] [id number] [address] [place] [address], [place] [address] May, [facility] [address] [id number] [address] [place] [address], [place] [address] May, [facility] [address] [id number] [address] [place] [address], [place] [address] March, [facility] [address] [id number] [address] [place] [address], [place] [address] March, [facility] [address] [id number] [address] [place] [address], [place] [address] Feb, [facility] [address] [id number] [address] [place] [address], [place] [address] Feb, [facility] [address] [id number] [address] [place] [address], [place] [address] 24 Feb, 2012 [facility] [facility] [address] [id number] [address] [place] [address], [place] [address] Feb, [facility] [address] [id number] [address] [place] [address], [place] [address] Feb, [facility] [address] [id number] [address] [place] [address], [place] [address] Feb, [facility] [address] [id number] [address] [place] [address], [place] [address] Feb, [facility] [address] [id number] [address] [place] [address], [place] [address] Feb, [facility] [address] [id number] [address] [place] [address], [place] [address] Dec, [facility] [address] [id number] [address] [place] [address], [place] [address] Nov, [facility] [address] [id number] [address] [place] [address], [place] [address] Nov, [facility] [address] [id number] [address] [place] [address], [place] [address] Nov, [facility] [address] [id number] [address] [place] [address], [place] [address] Nov, [facility] [address] [id number] [address] [place] [address], [place] [address] Nov, [facility] [address] [id number] [address] [place] [address], [place] [address] Nov, [facility] [address] [id number] [address] [place] [address], [place] [address] Oct, [facility] [address] [id number] [address] [place] [address], [place] [address] Sep, [facility] [address] [id number] [address] [place] [address], [place] [address] Sep, [facility] [address] [id number] [address] [place] [address], [place] [address] Sep, [facility] [address] [id number] [address] [place] [address], [place] [address] Sep, [facility] [address] [id number] [address] [place] [address], [place] [address] Aug, [facility] [address] [id number] [address] [place] [address], [place] [address] Aug, [facility] [address] [id number] [address] [place] [address], [place] [address] Aug, [facility] [address] [id number] [address] [place] [address], [place] [address] Aug, [facility] [address] [id number] [address] [place] [address], [place] [address] Aug, [facility] [address] [id number] [address] [place] [address], [place] [address] Aug, [facility] [address] [id number] [address] [place] [address], [place] [address] 17 Aug, 2011 [facility] [address] [id number] [address] [place] [address], [place] [address] 10 Aug, 2011 [facility] [address] [id number] [address] [place] [address], [place] [address] 10 Aug, 2011 [facility] [address] [id number] [address] [place] [address], [place] [address] 12 Jul, 2011 [facility] [address] [facility] [id number] [address] [place] [address] May, IMMUNIZATIONS No Known Immunizations SOCIAL HISTORY Never Assessed REASON FOR VISIT Thyroid-JAILYN brasher PLAN OF CARE VITAL SIGNS Height 68 in 2018-06-21 Weight 200.9 lbs 2018-06-21 Temperature 98.2 degrees Fahrenheit 2018-06-21 Heart Rate 113 bpm 2018-06-21 Respiratory Rate 20 2018-06-21 BMI 30.54 kg/m2 2018-06-21 Blood pressure systolic 120 mmHg 2018-06-21 Blood pressure diastolic 82 mmHg 2018-06-21 MEDICATIONS Medication Instructions Dosage Frequency Start Date End Date Duration S tatus Cymbalta 60 mg Orally twice a day 1 capsule 12h March, Active Cialis 20 mg Orally Once a day 1 tablet 24h Sep, Active Amitriptyline HCl 10 mg Orally Once a day at bedtime 1 tablet Apr, 30 day(s) Active Protonix 40 mg Orally Once a day, voucher 1st fill. 1 tablet Active Lisinopril 20 mg Orally Once a day 1 tablet 24h 30 Active Pantoprazole Sodium 40 MG TAKE ONE TABLET BY MOUTH ONCE DAILY 30 Not-Taking Rexulti 0.5 MG Orally Once a day 1 tablet 24h Jul, Active Levothyroxine Sodium 125 mcg 1 tablet 24h 30 Active Lipitor 10 mg Orally Once a day 1 tablet 24h 24 Jan, 2015 Active Multivital Active Topiramate 100 mg Orally Once a day 1 tablet 24h Active Fish Oil 1200 MG Orally Once a day 2 capsule 24h Active Bactrim DS 800-160 MG Orally Twice a day 1 tablet 12h 5 days Not-Taking Simethicone 80 MG Orally Four times a day 1 tablet after m eals and at bedtime as needed 6h May, Active RESULTS No Results PROCEDURES Procedure Date Ordered Result Body Site COMPREHEN METABOLIC PANEL June 21, 2018 ASSAY THYROID STIM HORMONE June 21, 2018 COMPLETE CBC W/AUTO DIFF WBC June 21, 2018 VENIPUNCT, ROUTINE* June 21, 2018 INSTRUCTIONS MEDICATIONS ADMINISTERED No Known Medications MEDICAL [...]
--- OUTSIDE RECORDS SUMMARY | 2020-02-07 09:25 | XMS REPORT ---
Author Author Britton ANGELES [facility] Address [address] [place] [address] Care Team Providers Care Evp Business Development Name Role Phone BRIDGETTEXAVIER Unavailable PROBLEMS Type Condition ICD9-CM Code BZM23-TC Code Onset Dates Condition S tatus SNOMED Code Problem Gastroesophageal reflux disease, esophagitis pre sence not specified K21.9 Active 536688266 Problem Environmental allergies Z91.09 Active 261163341 Problem Acute eczema L30.9 Active 1678127 02 Problem Acute left-sided low back pain with left-sided sciatica M54.42 Active 938298021 Problem Drug-induced erectile dysfunction N52.2 Active 975275801 Problem Personality disorder in adult F60.9 Active 29980471 Problem Tingling in extremities R20.2 Active 71830124 Problem Major depressive disorder, recurrent, moderate F33 .1 Active 79620344 Problem Generalized anxiety disorder F41.1 A ctive 77755119 Problem 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 Active 131811536 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 37780921 Problem Hypercholesterolemia E78.0 Active 36708923 Problem Anxiety F41.9 Active 84184460 Problem Secondary hypertension I15.9 Active 82747611 Problem Depression, unspecified depression type F32.9 Active 02155897 Problem Acquired hypothyroidism E03.9 Active 417518709 Problem Insomnia, unspecified type G47.00 Act mary [id number] ALLERGIES No Known Allergies ENCOUNTERS Encounter Location Date Diagnosis [facility] [address] [facility] [id number] [address] [place] [id number] March, [facility] [address] [facility] [id number] [address] [place] [id number] Feb, [facility] [address] [facility] [id number] [address] [place] [id number] Dec, Generalized anxiety disorder F41.1 ; Major depressive disorder, recurrent, moderate F33.1 and Personality disorder in adult F60.9 [facility] [address] [facility] [id number] [address] [place] [id number] 06 Dec, 2017 Acute left-sided low back pa in with left-sided sciatica M54.42 [facility] [address] [facility] [id number] [address] [place] [id number] Nov, [facility] [address] [facility] [id number] [address] [place] [id number] Oct, Generalized anxiety disorder F41.1 ; Major depressive disorder, recurrent, moderate F33.1 and Personality disorder in adult F60.9 [facility] [address] [facility] [id number] [address] [place] [id number] Sep, Acquired hypothyroidism E03. 9 ; Hypercholesterolemia E78.0 ; Generalized anxiety disorder F41.1 and Drug-induced erectile dysfunction N52.2 [facility] [address] [place] [id number] [address] [place] [phone] Sep, [facility] [address] [facility] [id number] [address] [place] [id number] Sep, Acquired hypothyroidism E03. 9 ; Hypercholesterolemia E78.0 ; Generalized anxiety disorder F41.1 and Drug-induced erectile dysfunction N52.2 [facility] [address] [facility] [id number] [address] [place] [id number] Sep, Generalized anxiety disorder F41.1 ; Major depressive disorder, recurrent, moderate F33.1 and Personality disorder in adult F60.9 [facility] [address] [id number] [address] [place] [id number] Aug, Dental examination Z01.20 [facility] [address] [id number] [address] [place] [id number] Aug, Dental caries K02.9 [facility] [address] [facility] [id number] [address] [place] [phone] Aug, [facility] [address] [id number] [address] [place] [id number] 10 Aug, 2017 Dental examination Z01.20 [facility] [address] [place] [id number] [address] [place] [id number] 20 Jul, 2017 Major depressive disorder, r ecurrent, moderate F33.1 [facility] [address] [place] [id number] [address] [place] [id number] 19 Jul, 2017 Generalized anxiety disorder F41.1 ; Major depressive disorder, recurrent, moderate F33.1 and Personality disorder in adult F60.9 [place] [id number] [place] [phone] 08 Jul, 2017 Generalized anxiety disorder F41.1 ; Major depressive disorder, recurrent, moderate F33.1 and Personality disorder in adult F60.9 [place] [address] [place] [id number] [address] [place] [phone] Jun, Generalized anxiety disorder F41.1 ; Major depressive disorder, recurrent, moderate F33.1 and Personality disorder in adult F60.9 [place] [address] [place] [id number] [address] [place] [phone] Apr, Generalized anxiety disorder F41.1 ; Major depressive disorder, recurrent, moderate F33.1 and Personality disorder in adult F60.9 [place] [address] [place] [id number] [address] [place] [phone] March, Acquired hypothyroidism E03. 9 [place] [address] [place] [id number] [address] [place] [phone] March, Acquired hypothyroidism E03. 9 and Left lower quadrant pain R10.32 [place] [address] [place] [id number] [address] [place] [phone] March, Hypercholesterolemia E78.0 ; Acquired hypothyroidism E03.9 ; Insomnia, unspecified type G47.00 ; Secondary hypertension I15.9 ; Gastroesophageal reflux disease, esophagitis presence not specified K21.9 ; Tingling in extremities R20.2 ; Environmental allergies Z91.09 ; Depression, unspecified depression type F32.9 and Left lower quadrant pain R10.32 [place] [address] [place] [id number] Feb, High risk sexual behavior Z7 2.51 [place] [address] [place] [id number] 13 Feb, 2017 Major depressive disorder, r ecurrent, moderate F33.1 and Generalized anxiety disorder F41.1 [place] [address] [place] [id number] Dec, Major depressive disorder, r ecurrent, moderate F33.1 [place] [address] [place] [id number] 17 Dec, 2016 [place] [address] [address] 16 Dec, 2016 Acquired hypothyroidism E03. 9 and High risk sexual behavior Z72.51 [place] [address] [id number] 07 Dec, 2016 Major depressive disorder, r ecurrent, moderate F33.1 and Generalized anxiety disorder F41.1 [place] [address] [place] [id number] 07 Dec, 2016 Acquired hypothyroidism E03. 9 ; Secondary hypertension I15.9 and Acute eczema L30.9 [place] [id number] Nov, Acquired hypothyroidism E03. 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 ; Hypercholesterolemia E78.0 ; Gastroesophageal reflux disease, esophagitis presence not specified K21.9 ; Anxiety F41.9 and Secondary hypertension I15.9 [place] [address] [id number] Oct, Major depressive disorder, r ecurrent, moderate F33.1 and Generalized anxiety disorder F41.1 [place] [address] [facility] [id number] [address] [place] [phone] Aug, [place] [address] [place] [id number] [place] [address] Aug, Insomnia, unspecified type G 47.00 ; Acquired hypothyroidism E03.9 ; Hypercholesterolemia E78.0 and Gastroesophageal reflux disease, esophagitis presence not specified K21.9 [place] [address] [address] Jul, [place] [address] [address] Jul, Major depressive disorder, r ecurrent, in partial remission F33.41 and Generalized anxiety disorder F41.1 [place] [address] [place] [id number] [place] [phone] Jun, [place] [address] [address] Jun, Cervical pain (neck) M54.2 a nd Cervical neuropathic pain M54.12 [place] [address] [address] 14 Apr, 2016 Insomnia, unspecified type G 47.00 ; Acquired hypothyroidism E03.9 ; Hypercholesterolemia E78.0 ; 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 ; Depression, unspecified depression type F32.9 ; 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 ; Gastroesophageal reflux disease, esophagitis presence not specified K21.9 ; Anxiety F41.9 ; Secondary hypertension I15.9 and Post- nasal drainage R09.82 [place] [address] [place] [id number] [address] [place] [phone] Apr, [place] [address] [address] March, [place] [address] [place] [id number] [place] [address] March, Unspecified hypothyroidism 2 44.9 and HTN (hypertension) 401.9 [place] [address] [address] March, [facility] [address] [address] Dec, [place] [address] [address] Nov, [place] [address] [address] Sep, Generalized anxiety disorder F41.1 and Major depressive disorder, recurrent, in partial remission F33.[address] [address] Jun, Unspecified hypothyroidism 2 44.9 ; Sciatica 724.3 ; Major depressive disorder, recurrent episode, in partial or unspecified remission 296.35 ; Combined hyperlipidemia 272.2 ; HTN (hypertension) 401.9 ; Hidrosis 780.8 ; Cat allergies 477.8 and Environmental allergies V15.09 [place] [address] [address] Jun, Major depressive disorder, r ecurrent episode, in partial or unspecified remission 296.35 ; Insomnia, unspecified 780.52 and Generalized anxiety disorder 300.02 [place] [address] [address] May, [place] [address] [address] Apr, [place] [address] [address] Apr, Closed mallet fracture of di stal phalanx of ring finger 816.02 [place] [address] [address] March, Depression, major, recurrent , moderate 296.32 ; Generalized anxiety disorder 300.02 and Borderline personality disorder 301.83 [place] [address] [place] [address] 14 Feb, 2015 [facility] [address] [id number] [address] [place] [address], [place] [address] Feb, [facility] [address] [id number] [address] [place] [address], [place] [address] Jan, [facility] [address] [id number] [address] [place] [address], [place] [address] Jan, [facility] [address] [id number] [address] [place] [address], [place] [address] Jan, [facility] [address] [id number] [address] [place] [address], [place] [address] Jan, [facility] [address] [id number] [address] [place] [address], [place] [address] Jan, [facility] [address] [id number] [address] [place] [address], [place] [address] Jan, [facility] [address] [id number] [address] [place] [address], [place] [address] Dec, [facility] [address] [id number] [address] [place] [address], [place] [address] Dec, [facility] [address] [id number] [address] [place] [address], [place] [address] Dec, [facility] [address] [id number] [address] [place] [address], [place] [address] Dec, [facility] [address] [id number] [address] [place] [address], [place] [address] Nov, [facility] [address] [id number] [address] [place] [address], [place] [address] Nov, [facility] [address] [id number] [address] [place] [address], [place] [address] Nov, [facility] [address] [id number] [address] [place] [address], [place] [address] Nov, [facility] [address] [id number] [address] [place] [address], [place] [address] Nov, [facility] [place] [address] [id number] [address] [place] [address], [place] [address] Nov, [facility] [address] [id number] [address] [place] [address], [place] [address] Oct, [facility] [place] [facility] [address] [id number] [address] [place] [address], [place] [address] Oct, [facility] [address] [id number] [address] [place] [address], [place] [address] Oct, [facility] [place] [facility] [address] [id number] [address] [place] [address], [place] [address] Oct, [facility] [address] [id number] [address] [place] [address], [place] [address] Oct, [facility] [address] [id number] [address] [place] [address], [place] [address] Oct, [facility] [address] [id number] [address] [place] [address], [place] [address] Sep, [facility] [address] [id number] [address] [place] [address], [place] [address] Sep, [facility] [address] [id number] [address] [place] [address], [place] [address] Sep, [facility] [place] [facility] [address] [id number] [address] [place] [id number] Sep, [facility] [address] [id number] [address] [place] [address], [place] [address] Aug, [facility] [place] [facility] [address] [id number] [address] [place] [address], [place] [address] Aug, [facility] [address] [id number] [address] [place] [address], [place] [address] Apr, [facility] [place] [facility] [address] [id number] [address] [place] [id number] Apr, [facility] [address] [id number] [address] [place] [address], [place] [address] Apr, [facility] [address] [id number] [address] [place] [address], [place] [id number] 17 Apr, 2014 [facility] [address] [id number] [address] [place] [address], [place] [address] Apr, [facility] [address] [id number] [address] [place] [address], [place] [address] Apr, [facility] [address] [id number] [address] [place] [address], [place] [id number] March, [facility] [address] [id number] [address] [place] [address], [place] [address] March, [facility] [address] [id number] [address] [place] [address], [place] [address] Dec, [facility] [place] [facility] [address] [id number] [address] [place] [address], [place] [address] Dec, [facility] [address] [id number] [address] [place] [address], [place] [address] Sep, [facility] [address] [id number] [address] [place] [address], [place] [address] Sep, [facility] [address] [id number] [address] [place] [address], [place] [address] Aug, [facility] [address] [id number] [address] [place] [address], [place] [address] Aug, [facility] [address] [id number] [address] [place] [address], [place] [address] Aug, [facility] [address] [id number] [address] [place] [address], [place] [address] Aug, [facility] [address] [id number] [address] [place] [address], [place] [address] Aug, [facility] [address] [id number] [address] [place] [address], [place] [address] Aug, [facility] [address] [id number] [address] [place] [address], [place] [address] Aug, [facility] [address] [id number] [address] [place] [address], [place] [address] Aug, [facility] [address] [id number] [address] [place] [address], [place] [address] Aug, [facility] [address] [id number] [address] [place] [address], [place] [address] Aug, [facility] [address] [id number] [address] [place] [address], [place] [address] Jul, [facility] [address] [id number] [address] [place] [address], [place] [address] Jul, [facility] [address] [id number] [address] [place] [address], [place] [address] Jul, [facility] [address] [id number] [address] [place] [address], [place] [address] Jun, [facility] [address] [id number] [address] [place] [address], [place] [address] May, [facility] [address] [id number] [address] [place] [address], [place] [address] May, [facility] [address] [id number] [address] [place] [address], [place] [address] May, [facility] [address] [id number] [address] [place] [address], [place] [address] Apr, [facility] [address] [id number] [address] [place] [address], [place] [address] March, [facility] [address] [id number] [address] [place] [address], [place] [address] March, [facility] [address] [id number] [address] [place] [address], [place] [address] 30 Feb, 2013 [facility] [address] [id number] [address] [place] [address], [place] [id number] 18 Feb, 2013 [facility] [address] [id number] [address] [place] [address], [place] [address] Feb, [facility] [address] [id number] [address] [place] [address], [place] [address] Feb, [facility] [address] [id number] [address] [place] [address], [place] [address] Jan, [facility] [address] [id number] [address] [place] [address], [place] [address] Jan, [facility] [address] [id number] [address] [place] [address], [place] [address] Jan, [facility] [address] [id number] [address] [place] [address], [place] [address] Jan, [facility] [address] [id number] [address] [place] [address], [place] [address] Dec, [facility] [address] [id number] [address] [place] [address], [place] [address] Dec, [facility] [address] [id number] [address] [place] [address], [place] [address] Dec, [facility] [address] [id number] [address] [place] [address], [place] [address] Nov, [facility] [address] [id number] [address] [place] [address], [place] [id number] Nov, [facility] [address] [id number] [address] [place] [address], [place] [address] Nov, [facility] [address] [id number] [address] [place] [address], [place] [id number] Nov, [facility] [address] [id number] [address] [place] [address], [place] [address] Oct, [facility] [address] [id number] [address] [place] [address], [place] [address] Oct, [facility] [address] [id number] [address] [place] [address], [place] [address] Oct, [facility] [address] [id number] [address] [place] [address], [place] [address] Oct, [facility] [address] [id number] [address] [place] [address], [place] [address] Sep, [facility] [address] [id number] [address] [place] [address], [place] [address] Sep, [facility] [address] [id number] [address] [place] [address], [place] [address] Sep, [facility] [address] [id number] [address] [place] [address], [place] [address] Sep, [facility] [address] [id number] [address] [place] [address], [place] [address] Aug, [facility] [address] [id number] [address] [place] [address], [place] [address] Aug, [facility] [address] [id number] [address] [place] [address], [place] [address] Aug, [facility] [address] [id number] [address] [place] [address], [place] [address] Jul, [facility] [address] [id number] [address] [place] [address], [place] [address] Jun, [facility] [address] [id number] [address] [place] [address], [place] [address] May, [facility] [address] [id number] [address] [place] [address], [place] [id number] May, [facility] [address] [id number] [address] [place] [address], [place] [id number] May, [facility] [address] [id number] [address] [place] [address], [place] [id number] March, [facility] [address] [id number] [address] [place] [address], [place] [id number] March, [facility] [address] [id number] [address] [place] [address], [place] [id number] Feb, [facility] [address] [id number] [address] [place] [address], [place] [id number] Feb, [facility] [address] [id number] [address] [place] [address], [place] [id number] 24 Feb, 2012 [facility] [address] [id number] [address] [place] [address], [place] [id number] Feb, [facility] [address] [id number] [address] [place] [address], [place] [id number] Feb, [facility] [address] [id number] [address] [place] [address], [place] [id number] Feb, [facility] [address] [id number] [address] [place] [address], [place] [id number] Feb, [facility] [address] [id number] [address] [place] [address], [place] [id number] Feb, [facility] [address] [id number] [address] [place] [address], [place] [id number] Dec, [facility] [address] [id number] [address] [place] [address], [place] [id number] Nov, [facility] [address] [id number] [address] [place] [address], [place] [id number] Nov, [facility] [address] [id number] [address] [place] [address], [place] [id number] Nov, [facility] [address] [id number] [address] [place] [address], [place] [id number] Nov, [facility] [address] [id number] [address] [place] [address], [place] [id number] Nov, [facility] [address] [id number] [address] [place] [address], [place] [id number] Nov, [facility] [address] [id number] [address] [place] [address], [place] [id number] Oct, [facility] [address] [id number] [address] [place] [address], [place] [id number] Sep, [facility] [address] [id number] [address] [place] [address], [place] [id number] Sep, [facility] [address] [id number] [address] [place] [address], [place] [id number] Sep, [facility] [address] [id number] [address] [place] [address], [place] [id number] Sep, [facility] [address] [id number] [address] [place] [address], [place] [id number] Aug, [facility] [address] [id number] [address] [place] [address], [place] [id number] Aug, [facility] [address] [id number] [address] [place] [address], [place] [id number] Aug, [facility] [address] [id number] [address] [place] [address], [place] [id number] Aug, [facility] [address] [id number] [address] [place] [address], [place] [id number] Aug, [facility] [address] [id number] [address] [place] [address], [place] [id number] Aug, [facility] [address] [id number] [address] [place] [address], [place] [id number] 17 Aug, 2011 [facility] [address] [id number] [address] [place] [address], [place] [id number] 10 Aug, 2011 [facility] [address] [id number] [address] [place] [address], [place] [id number] 10 Aug, 2011 [facility] [address] [id number] [address] [place] [address], [place] [id number] 12 Jul, 2011 [facility] [address] [facility] [id number] [address] [place] [id number] May, IMMUNIZATIONS No Known Immunizations SOCIAL HISTORY Never Assessed REASON FOR VISIT f/u - Alex GLASER PLAN OF CARE Activity Details Follow Up 4 Weeks Reason: f/u VITAL SIGNS Height 68 in 2017-06-26 Weight 204.0 lbs 2017-06-26 Heart Rate 92 bpm 2017-06-26 Respiratory Rate 20 2017-06-26 BMI 31.01 kg/m2 2017-06-26 Blood pressure systolic 110 mmHg 2017-06-26 Blood pressure diastolic 76 mmHg 2017-06-26 MEDICATIONS Medication Instructions Dosage Frequency Start Date End Date Duration S tatus Topiramate 100 MG Orally Once a day 1 tablet 24h Active Lisinopril 20 mg Orally Once a day 1 tablet 24h 30 Active Levothyroxine Sodium 125 MCG Orally Once a day 1 tablet on an empty stomach in the morning 24h March, 30 day(s) Active Cymbalta 30 MG Orally Once a day 3 capsules 24h Jun, 30 day(s) Active Lipitor 10 mg Orally Once a day 1 tablet 24h 24 Jan, 2015 Active Aluminum Chloride 20 % 1 time per dayat night May, 12 Active RESULTS No Results PROCEDURES No Known [...]
--- OUTSIDE RECORDS SUMMARY | 2020-02-07 09:25 | XMS REPORT ---
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 Ground Bone Name Role Phone BRIDGETTE, XAVIER Unavailable PROBLEMS Type Condition ICD9-CM Code KOK41-HV Code Onset Dates Condition S tatus SNOMED Code Problem Acute eczema L30.9 Active 2429399 02 Problem Tingling in extremities R20.2 Active 99350549 Problem Environmental allergies Z91.09 Active 387635719 Problem Primary insomnia F51.01 Active 397 2004 Problem Acute left-sided low back pain with left-sided sciatica M54.42 Active 573253071 Problem Generalized anxiety disorder F41.1 A ctive 09284753 Problem Personality disorder in adult F60.9 Active 43986800 Problem Drug-induced erectile dysfunction N52.2 Active 267692227 Problem Major depressive disorder, recurrent, moderate F33 .1 Active 03268380 Problem Anxiety F41.9 Active 69426993 Problem Acquired hypothyroidism E03.9 Active 049265407 Problem Hypercholesterolemia E78.0 Active 18755904 Problem Secondary hypertension I15.9 Active 42398919 Problem Depression, unspecified depression type F32.9 Active 86040704 Problem 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 Active 867945905 Problem Insomnia, unspecified type G47.00 Act mary 449356488 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 47795111 Problem Gastroesophageal reflux disease, esophagitis pre sence not specified K21.9 Active 675105346 ALLERGIES No Information ENCOUNTERS Encounter Location Date Diagnosis [facility] [place] [address] [facility] [id number] [address] [place] [phone] Jun, [facility] [place] [address] [facility] [id number] [address] [place] [phone] May, [facility] [place] [address] [facility] [id number] [address] [place] [phone] Apr, [facility] [address] [facility] [id number] [address] [place] [phone] 11 Apr, 2018 Skin infection L08.9 [facility] [place] [address] [facility] [id number] [address] [place] [phone] 05 Apr, 2018 Generalized anxiety disorder F41.1 ; Major depressive disorder, recurrent, moderate F33.1 ; Primary insomnia F51.01 and Personality disorder in adult F60.9 [facility] [place] [address] [facility] [id number] [address] [place] [phone] March, Generalized anxiety disorder F41.1 ; Major depressive disorder, recurrent, moderate F33.1 and Personality disorder in adult F60.9 [facility] [place] [address] [facility] [id number] [address] [place] [phone] Feb, [facility] [place] [address] [facility] [id number] [address] [place] [id number] 06 Dec, 2017 Generalized anxiety disorder F41.1 ; Major depressive disorder, recurrent, moderate F33.1 and Personality disorder in adult F60.9 [facility] [address] [facility] [id number] [address] [place] [id number] 06 Dec, 2017 Acute left-sided low back pa in with left-sided sciatica M54.42 [facility] [place] [address] [place] [id number] [address] [place] [phone] Nov, [facility] [place] [address] [facility] [id number] [address] [place] [phone] Oct, Generalized anxiety disorder F41.1 ; Major depressive disorder, recurrent, moderate F33.1 and Personality disorder in adult F60.9 [facility] [place] [address] [facility] [id number] [address] [place] [phone] Sep, Acquired hypothyroidism E03. 9 ; Hypercholesterolemia E78.0 ; Generalized anxiety disorder F41.1 and Drug-induced erectile dysfunction N52.2 [facility] [place] [address] [facility] [id number] [address] [place] [phone] Sep, [facility] [place] [address] [id number] [address] [place] [phone] Sep, Acquired hypothyroidism E03. 9 ; Hypercholesterolemia E78.0 ; Generalized anxiety disorder F41.1 and Drug-induced erectile dysfunction N52.2 [facility] [place] [address] [id number] [address] [place] [phone] 07 Sep, 2017 Generalized anxiety disorder F41.1 ; Major depressive disorder, recurrent, moderate F33.1 and Personality disorder in adult F60.9 [facility] [address] [id number] [address] [place] [address] [id number] Aug, Dental examination Z01.20 [facility] [address] [id number] [address] [place] [address] [id number] Aug, Dental caries K02.9 [facility] [place] [address] [id number] [address] [place] [phone] Aug, [facility] [address] [id number] [address] [place] [address] [id number] Aug, Dental examination Z01.20 [facility] [place] [address] [id number] [address] [place] [id number] 20 Jul, 2017 Major depressive disorder, r ecurrent, moderate F33.1 [facility] [place] [address] [id number] [address] [place] [phone] 19 Jul, 2017 Generalized anxiety disorder F41.1 ; Major depressive disorder, recurrent, moderate F33.1 and Personality disorder in adult F60.9 [facility] [place] [address] [id number] [address] [place] [phone] 08 Jul, 2017 Generalized anxiety disorder F41.1 ; Major depressive disorder, recurrent, moderate F33.1 and Personality disorder in adult F60.9 [facility] [place] [address] [id number] [address] [place] [phone] Jun, Generalized anxiety disorder F41.1 ; Major depressive disorder, recurrent, moderate F33.1 and Personality disorder in adult F60.9 [place] [address] [place] [id number] [address] [place] [phone] Apr, Generalized anxiety disorder F41.1 ; Major depressive disorder, recurrent, moderate F33.1 and Personality disorder in adult F60.9 [place] [address] [address] March, Acquired hypothyroidism E03. 9 [place] [address] [address] March, Acquired hypothyroidism E03. 9 and Left lower quadrant pain R10.32 [place] [address] [address] March, Hypercholesterolemia E78.0 ; Acquired hypothyroidism E03.9 ; Insomnia, unspecified type G47.00 ; Secondary hypertension I15.9 ; Gastroesophageal reflux disease, esophagitis presence not specified K21.9 ; Tingling in extremities R20.2 ; Environmental allergies Z91.09 ; Depression, unspecified depression type F32.9 and Left lower quadrant pain R10.32 [place] [address] [address] Feb, High risk sexual behavior Z7 2.51 [place] [address] [address] Feb, Major depressive disorder, r ecurrent, moderate F33.1 and Generalized anxiety disorder F41.1 [place] [address] [address] Dec, Major depressive disorder, r ecurrent, moderate F33.1 [place] [address] [address] 17 Dec, 2016 [place] [address] [address] 16 Dec, 2016 Acquired hypothyroidism E03. 9 and High risk sexual behavior Z72.51 [place] [address] [id number] 07 Dec, 2016 Major depressive disorder, r ecurrent, moderate F33.1 and Generalized anxiety disorder F41.1 [place] [address] [place] [id number] [place] [phone] 07 Dec, 2016 Acquired hypothyroidism E03. 9 ; Secondary hypertension I15.9 and Acute eczema L30.9 [place] [address] [place] [id number] [place] [address] Nov, Acquired hypothyroidism E03. 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 ; Hypercholesterolemia E78.0 ; Gastroesophageal reflux disease, esophagitis presence not specified K21.9 ; Anxiety F41.9 and Secondary hypertension I15.9 [place] [address] [address] Oct, Major depressive disorder, r ecurrent, moderate F33.1 and Generalized anxiety disorder F41.1 [place] [address] [address] Aug, [address] [address] Aug, Insomnia, unspecified type G 47.00 ; Acquired hypothyroidism E03.9 ; Hypercholesterolemia E78.0 and Gastroesophageal reflux disease, esophagitis presence not specified K21.9 [place] [address] [address] Jul, [place] [address] [address] Jul, Major depressive disorder, r ecurrent, in partial remission F33.41 and Generalized anxiety disorder F41.1 [place] [address] [place] [id number] [address] [place] [phone] Jun, [place] [address] [place] [id number] [address] [place] [phone] Jun, Cervical pain (neck) M54.2 a nd Cervical neuropathic pain M54.12 [place] [address] [address] 14 Apr, 2016 Insomnia, unspecified type G 47.00 ; Acquired hypothyroidism E03.9 ; Hypercholesterolemia E78.0 ; 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 ; Depression, unspecified depression type F32.9 ; 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 ; Gastroesophageal reflux disease, esophagitis presence not specified K21.9 ; Anxiety F41.9 ; Secondary hypertension I15.9 and Post- nasal drainage R09.82 [place] [address] [address] Apr, [place] [address] [address] March, [place] [address] [address] March, Unspecified hypothyroidism 2 44.9 and HTN (hypertension) 401.9 [place] [address] [address] March, [place] [address] [address] Dec, [place] [address] [address] Nov, [place] [address] [address] Sep, Generalized anxiety disorder F41.1 and Major depressive disorder, recurrent, in partial remission F33.41 [place] [address] [place] [id number] [place] [address] Jun, Unspecified hypothyroidism 2 44.9 ; Sciatica 724.3 ; Major depressive disorder, recurrent episode, in partial or unspecified remission 296.35 ; Combined hyperlipidemia 272.2 ; HTN (hypertension) 401.9 ; Hidrosis 780.8 ; Cat allergies 477.8 and Environmental allergies V15.09 [place] [address] [place] [id number] [address] [place] [phone] Jun, Major depressive disorder, r ecurrent episode, in partial or unspecified remission 296.35 ; Insomnia, unspecified 780.52 and Generalized anxiety disorder 300.02 [facility] [place] [address] [facility] [id number] [address] [place] [phone] May, [facility] [place] [address] [place] [id number] [address] [place] [phone] Apr, [facility] [place] [address] [place] [id number] [address] [place] [phone] Apr, Closed mallet fracture of di stal phalanx of ring finger 816.02 [facility] [place] [address] [place] [id number] [address] [place] [address] March, Depression, major, recurrent , moderate 296.32 ; Generalized anxiety disorder 300.02 and Borderline personality disorder 301.83 [facility] [place] [address] [place] [id number] [address] [place] [phone] Feb, [facility] [place] [address] [place] [id number] [address] [place] [phone] Feb, [facility] [place] [address] [place] [id number] [address] [place] [phone] Jan, [facility] [place] [address] [place] [id number] [address] [place] [phone] Jan, [facility] [place] [address] [facility] [id number] [address] [place] [phone] Jan, [facility] [place] [address] [facility] [id number] [address] [place] [phone] Jan, [facility] [place] [address] [facility] [id number] [address] [place] [phone] Jan, [facility] [place] [address] [facility] [id number] [address] [place] [phone] Jan, [facility] [place] [address] [place] [id number] [address] [place] [phone] Dec, [facility] [address] [id number] [address] [place] [address], [place] [address] Dec, [facility] [address] [id number] [address] [place] [address], [place] [address] Dec, [facility] [address] [id number] [address] [place] [address], [place] [address] Dec, [facility] [address] [id number] [address] [place] [address], [place] [address] Nov, [facility] [address] [id number] [address] [place] [address], [place] [address] Nov, [facility] [address] [id number] [address] [place] [address], [place] [address] Nov, [facility] [address] [id number] [address] [place] [address], [place] [address] Nov, [facility] [address] [id number] [address] [place] [address], [place] [address] Nov, [facility] [address] [id number] [address] [place] [address], [place] [address] Nov, [facility] [address] [id number] [address] [place] [address], [place] [address] Oct, [facility] [address] [id number] [address] [place] [address], [place] [address] Oct, [facility] [address] [id number] [address] [place] [address], [place] [address] Oct, [facility] [address] [id number] [address] [place] [address], [place] [address] Oct, [facility] [address] [id number] [address] [place] [address], [place] [address] Oct, [facility] [address] [id number] [address] [place] [address], [place] [address] Oct, [facility] [address] [id number] [address] [place] [address], [place] [address] Sep, [facility] [address] [id number] [address] [place] [address], [place] [address] Sep, [facility] [address] [id number] [address] [place] [address], [place] [address] Sep, [facility] [address] [id number] [address] [place] [address], [place] [address] Sep, [facility] [address] [id number] [address] [place] [address], [place] [address] Aug, [facility] [address] [id number] [address] [place] [address], [place] [address] Aug, [facility] [address] [id number] [address] [place] [address], [place] [address] Apr, [facility] [address] [id number] [address] [place] [address], [place] [address] Apr, [facility] [address] [id number] [address] [place] [address], [place] [address] Apr, [facility] [address] [id number] [address] [place] [address], [place] [address] Apr, [facility] [address] [id number] [address] [place] [address], [place] [address] Apr, [facility] [address] [id number] [address] [place] [address], [place] [address] Apr, [facility] [address] [id number] [address] [place] [address], [place] [address] March, [facility] [address] [id number] [address] [place] [address], [place] [address] March, [facility] [address] [id number] [address] [place] [address], [place] [address] Dec, [facility] [address] [id number] [address] [place] [phone] Dec, [facility] [address] [id number] [address] [place] [address], [place] [address] Sep, [facility] [address] [id number] [address] [place] [address] Sep, [facility] [address] [id number] [address] [place] [address], [place] [address] Aug, [facility] [address] [id number] [address] [place] [address] Aug, [facility] [address] [id number] [address] [place] [address], [place] [address] Aug, [facility] [address] [id number] [address] [place] [address] Aug, [facility] [address] [id number] [address] [place] [address] Aug, [facility] [address] [id number] [address] [place] [address] Aug, [facility] [address] [id number] [address] [place] [address] Aug, [facility] [address] [id number] [address] [place] [address] Aug, [facility] [address] [id number] [address] [place] [address] Aug, [facility] [address] [id number] [address] [place] [address] Aug, [facility] [address] [id number] [address] [place] [address] Jul, [facility] [address] [id number] [address] [place] [id number] 19 Jul, 2013 [facility] [address] [id number] [address] [place] [id number] 05 Jul, 2013 [facility] [address] [id number] [address] [place] [address], [place] [address] Jun, [facility] [address] [id number] [address] [place] [address], [place] [address] May, [facility] [address] [id number] [address] [place] [address], [place] [address] May, [facility] [address] [id number] [address] [place] [address], [place] [address] May, [facility] [address] [id number] [address] [place] [address], [place] [address] Apr, [facility] [address] [id number] [address] [place] [address], [place] [address] March, [facility] [address] [id number] [address] [place] [address], [place] [address] March, [facility] [address] [id number] [address] [place] [address], [place] [address] Feb, [facility] [address] [id number] [address] [place] [address], [place] [address] Feb, [facility] [address] [id number] [address] [place] [address], [place] [address] Feb, [facility] [address] [id number] [address] [place] [address], [place] [address] Feb, [facility] [address] [id number] [address] [place] [address], [place] [address] Jan, [facility] [address] [id number] [address] [place] [address], [place] [address] Jan, [facility] [address] [id number] [address] [place] [address], [place] [address] Jan, [facility] [address] [id number] [address] [place] [address], [place] [address] Jan, [facility] [address] [id number] [address] [place] [address], [place] [address] Dec, [facility] [address] [id number] [address] [place] [address], [place] [address] Dec, [facility] [address] [id number] [address] [place] [address], [place] [address] Dec, [facility] [address] [id number] [address] [place] [address], [place] [address] Nov, [facility] [address] [id number] [address] [place] [address], [place] [address] Nov, [facility] [address] [id number] [address] [place] [address], [place] [address] Nov, [facility] [address] [id number] [address] [place] [address], [place] [address] Nov, [facility] [address] [id number] [address] [place] [address], [place] [address] Oct, [facility] [address] [id number] [address] [place] [address], [place] [address] Oct, [facility] [address] [id number] [address] [place] [address], [place] [address] Oct, [facility] [address] [id number] [address] [place] [address], [place] [address] Oct, [facility] [address] [id number] [address] [place] [address], [place] [address] Sep, [facility] [address] [id number] [address] [place] [address], [place] [address] Sep, [facility] [address] [id number] [address] [place] [address], [place] [address] Sep, [facility] [address] [id number] [address] [place] [address], [place] [address] Sep, [facility] [address] [id number] [address] [place] [address], [place] [address] 30 Aug, 2012 [facility] [address] [id number] [address] [place] [address], [place] [address] Aug, [facility] [address] [id number] [address] [place] [address], [place] [address] Aug, [facility] [address] [id number] [address] [place] [address], [place] [address] Jul, [facility] [address] [id number] [address] [place] [address], [place] [address] Jun, [facility] [address] [id number] [address] [place] [address], [place] [address] May, [facility] [address] [id number] [address] [place] [address], [place] [address] May, [facility] [address] [id number] [address] [place] [address], [place] [address] May, [facility] [address] [id number] [address] [place] [address], [place] [address] March, [facility] [address] [id number] [address] [place] [address], [place] [address] March, [facility] [address] [id number] [address] [place] [address], [place] [address] Feb, [facility] [address] [id number] [address] [place] [address], [place] [address] Feb, [facility] [address] [id number] [address] [place] [address], [place] [address] 24 Feb, 2012 [facility] [address] [id number] [address] [place] [address], [place] [address] 17 Feb, 2012 [facility] [address] [id number] [address] [place] [address], [place] [address] 16 Feb, 2012 [facility] [address] [id number] [address] [place] [address], [place] [address] Feb, [facility] [address] [id number] [address] [place] [address], [place] [address] Feb, [facility] [address] [id number] [address] [place] [address], [place] [address] Feb, [facility] [address] [id number] [address] [place] [address], [place] [address] Dec, [facility] [address] [id number] [address] [place] [address], [place] [address] Nov, [facility] [address] [id number] [address] [place] [address], [place] [address] Nov, [facility] [address] [id number] [address] [place] [address], [place] [address] Nov, [facility] [address] [id number] [address] [place] [address], [place] [address] Nov, [facility] [address] [id number] [address] [place] [address], [place] [address] Nov, [facility] [address] [id number] [address] [place] [address], [place] [address] Nov, [facility] [address] [id number] [address] [place] [address], [place] [address] Oct, [facility] [address] [id number] [address] [place] [address], [place] [address] Sep, [facility] [address] [id number] [address] [place] [address], [place] [address] Sep, [facility] [address] [id number] [address] [place] [id number] Sep, [facility] [address] [id number] [address] [place] [address], [place] [address] Sep, [facility] [address] [id number] [address] [place] [address], [place] [address] Aug, [facility] [address] [id number] [address] [place] [address], [place] [address] Aug, [facility] [address] [id number] [address] [place] [phone] Aug, [facility] [place] [address] [id number] [address] [place] [phone] Aug, [facility] [place] [address] [id number] [address] [place] [address] Aug, [facility] [place] [address] [id number] [address] [place] [phone] Aug, [facility] [place] [address] [id number] [address] [place] [phone] Aug, [facility] [place] [address] [id number] [address] [place] [id number] Aug, [facility] [place] [address] [id number] [address] [place] [phone] Aug, [facility] [place] [address] [id number] [address] [place] [id number] Jul, [facility] [place] [address] [id number] [address] [place] [id number] May, IMMUNIZATIONS No Known Immunizations SOCIAL HISTORY [...]
--- OUTSIDE RECORDS SUMMARY | 2020-02-07 09:25 | XMS REPORT ---
Author Author BRIDGETTEBritton [facility] Address [address] [place] [address] Care Team Providers Care Outdoor Pursuits Instructor Name Role Phone BRIDGETTE, XAVIER Unavailable PROBLEMS Type Condition ICD9-CM Code PPE19-JW Code Onset Dates Condition S tatus SNOMED Code Problem Tingling in extremities R20.2 Active 29214691 Problem Generalized anxiety disorder F41.1 A ctive 12769057 Problem Personality disorder in adult F60.9 Active 83054291 Problem Hypothyroidism (acquired) E03.9 Acti ve 003732954 Problem Depression, unspecified depression type F32.9 Active 05170600 Problem Gastroesophageal reflux disease without esophagitis K21.9 Active 263782472 Problem Drug-induced erectile dysfunction N52.2 Active 379518288 Problem Major depressive disorder, recurrent, moderate F33 .1 Active 36858154 Problem Primary insomnia F51.01 Active 397 2004 Problem Acute left-sided low back pain with left-sided sciatica M54.42 Active 970271775 Problem 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 Active 970958437 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 25704956 Problem Insomnia, unspecified type G47.00 Act mary 520518305 Problem Gastroesophageal reflux disease, esophagitis pre sence not specified K21.9 Active 836549525 Problem Anxiety F41.9 Active 70603473 Problem Acquired hypothyroidism E03.9 Active 944337982 Problem Secondary hypertension I15.9 Active 46601144 Problem Acute eczema L30.9 Active 5319133 02 Problem Hypercholesterolemia E78.0 Active 57062931 Problem Environmental allergies Z91.09 Active 415534518 ALLERGIES Substance Reaction Event Type Date Status Amoxicillin vomiting Drug Allergy Apr, Active ENCOUNTERS Encounter Location Date Diagnosis [facility] [address] [facility] [id number] [address] [place] [address] Jul, [facility] [address] [place] [id number] [address] [place] [address] Jun, Generalized anxiety disorder F41.1 ; Major depressive disorder, recurrent, moderate F33.1 ; Primary insomnia F51.01 and Personality disorder in adult F60.9 [facility] [address] [facility] [id number] [address] [place] [address] May, Acquired hypothyroidism E03. 9 [facility] [address] [facility] [id number] [address] [place] [address] 27 May, 2018 Hypothyroidism (acquired) E0 3.9 and Gastroesophageal reflux disease without esophagitis K21.9 [place] [address] [facility] [id number] [address] [place] [address] Apr, [facility] [address] [place] [id number] [address] [place] [address] Apr, Skin infection L08.9 [place] [address] [facility] [id number] [address] [place] [address] Apr, Generalized anxiety disorder F41.1 ; Major depressive disorder, recurrent, moderate F33.1 ; Primary insomnia F51.01 and Personality disorder in adult F60.9 [place] [address] [place] [id number] [address] [place] [address] March, Generalized anxiety disorder F41.1 ; Major depressive disorder, recurrent, moderate F33.1 and Personality disorder in adult F60.9 [place] [address] [facility] [id number] [address] [place] [address] Feb, [place] [address] [facility] [id number] [address] [place] [address] Dec, Generalized anxiety disorder F41.1 ; Major depressive disorder, recurrent, moderate F33.1 and Personality disorder in adult F60.9 [facility] [address] [facility] [id number] [address] [place] [address] Dec, Acute left-sided low back pa in with left-sided sciatica M54.42 [facility] [address] [id number] [address] [place] [address] Nov, [facility] [address] [id number] [address] [place] [address] Oct, Generalized anxiety disorder F41.1 ; Major depressive disorder, recurrent, moderate F33.1 and Personality disorder in adult F60.9 [facility] [address] [id number] [address] [place] [address] Sep, Acquired hypothyroidism E03. 9 ; Hypercholesterolemia E78.0 ; Generalized anxiety disorder F41.1 and Drug-induced erectile dysfunction N52.2 [facility] [address] [id number] [address] [place] [address] Sep, [facility] [address] [id number] [address] [place] [address] Sep, Acquired hypothyroidism E03. 9 ; Hypercholesterolemia E78.0 ; Generalized anxiety disorder F41.1 and Drug-induced erectile dysfunction N52.2 [facility] [address] [id number] [address] [place] [address] Sep, Generalized anxiety disorder F41.1 ; Major depressive disorder, recurrent, moderate F33.1 and Personality disorder in adult F60.9 [facility] [address] [id number] [address] [place] [address] [id number] Aug, Dental examination Z01.20 [facility] [address] [id number] [address] [place] [id number] Aug, Dental caries K02.9 [facility] [address] [id number] [address] [place] [address] Aug, [facility] [address] [id number] [address] [place] [id number] Aug, Dental examination Z01.20 [facility] [address] [id number] [address] [place] [address] Jul, Major depressive disorder, r ecurrent, moderate F33.1 [facility] [address] [address] Jul, Generalized anxiety disorder F41.1 ; Major depressive disorder, recurrent, moderate F33.1 and Personality disorder in adult F60.9 [place] [address] [address] 08 Jul, 2017 Generalized anxiety disorder F41.1 ; Major depressive disorder, recurrent, moderate F33.1 and Personality disorder in adult F60.9 [place] [address] [address] Jun, Generalized anxiety disorder F41.1 ; Major depressive disorder, recurrent, moderate F33.1 and Personality disorder in adult F60.9 [place] [address] [address] Apr, Generalized anxiety disorder F41.1 ; Major depressive disorder, recurrent, moderate F33.1 and Personality disorder in adult F60.9 [place] [address] [address] March, Acquired hypothyroidism E03. 9 [place] [address] [address] March, Acquired hypothyroidism E03. 9 and Left lower quadrant pain R10.32 [place] [address] [address] March, Hypercholesterolemia E78.0 ; Acquired hypothyroidism E03.9 ; Insomnia, unspecified type G47.00 ; Secondary hypertension I15.9 ; Gastroesophageal reflux disease, esophagitis presence not specified K21.9 ; Tingling in extremities R20.2 ; Environmental allergies Z91.09 ; Depression, unspecified depression type F32.9 and Left lower quadrant pain R10.32 [place] [address] [address] Feb, High risk sexual behavior Z7 2.51 [place] [address] [address] Feb, Major depressive disorder, r ecurrent, moderate F33.1 and Generalized anxiety disorder F41.1 [place] [address] [address] Dec, Major depressive disorder, r ecurrent, moderate F33.1 [place] [address] [place] [id number] [place] [address] Dec, [place] [address] [place] [address] Dec, Acquired hypothyroidism E03. 9 and High risk sexual behavior Z72.51 [place] [address] [place] [address] Dec, Major depressive disorder, r ecurrent, moderate F33.1 and Generalized anxiety disorder F41.1 [place] [address] [address] Dec, Acquired hypothyroidism E03. 9 ; Secondary hypertension I15.9 and Acute eczema L30.9 [place] [address] [address] Nov, Acquired hypothyroidism E03. 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 ; Hypercholesterolemia E78.0 ; Gastroesophageal reflux disease, esophagitis presence not specified K21.9 ; Anxiety F41.9 and Secondary hypertension I15.9 [place] [address] [address] Oct, Major depressive disorder, r ecurrent, moderate F33.1 and Generalized anxiety disorder F41.1 [place] [address] [place] [address] Aug, [place] [address] [address] Aug, Insomnia, unspecified type G 47.00 ; Acquired hypothyroidism E03.9 ; Hypercholesterolemia E78.0 and Gastroesophageal reflux disease, esophagitis presence not specified K21.9 [place] [address] [address] Jul, [place] [address] [address] 06 Jul, 2016 Major depressive disorder, r ecurrent, in partial remission F33.41 and Generalized anxiety disorder F41.1 [place] [address] [address] Jun, [place] [address] [address] Jun, Cervical pain (neck) M54.2 a nd Cervical neuropathic pain M54.12 [place] [address] [address] 14 Apr, 2016 Insomnia, unspecified type G 47.00 ; Acquired hypothyroidism E03.9 ; Hypercholesterolemia E78.0 ; 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 ; Depression, unspecified depression type F32.9 ; 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 ; Gastroesophageal reflux disease, esophagitis presence not specified K21.9 ; Anxiety F41.9 ; Secondary hypertension I15.9 and Post- nasal drainage R09.82 [place] [address] [address] Apr, [place] [address] [address] March, [place] [address] [address] March, Unspecified hypothyroidism 2 44.9 and HTN (hypertension) 401.9 [place] [address] [address] March, [place] [address] [address] Dec, [place] [address] [address] Nov, [facility] [address] [place] [id number] [address] [place] [address] Sep, Generalized anxiety disorder F41.1 and Major depressive disorder, recurrent, in partial remission F33.41 [place] [address] [place] [id number] [address] [place] [address] Jun, Unspecified hypothyroidism 2 44.9 ; Sciatica 724.3 ; Major depressive disorder, recurrent episode, in partial or unspecified remission 296.35 ; Combined hyperlipidemia 272.2 ; HTN (hypertension) 401.9 ; Hidrosis 780.8 ; Cat allergies 477.8 and Environmental allergies V15.09 [place] [address] [address] Jun, Major depressive disorder, r ecurrent episode, in partial or unspecified remission 296.35 ; Insomnia, unspecified 780.52 and Generalized anxiety disorder 300.02 [place] [address] [place] [id number] [address] [place] [address] May, [facility] [address] [place] [id number] [address] [place] [address] Apr, [place] [address] [address] Apr, Closed mallet fracture of di stal phalanx of ring finger 816.02 [place] [address] [place] [id number] [address] [place] [address] March, Depression, major, recurrent , moderate 296.32 ; Generalized anxiety disorder 300.02 and Borderline personality disorder 301.83 [facility] [address] [place] [id number] [address] [place] [address] Feb, [facility] [address] [address] Feb, [facility] [address] [place] [id number] [address] [place] [address] Jan, [facility] [address] [id number] [address] [place] [address], [place] [address] Jan, [facility] [address] [id number] [address] [place] [address], [place] [address] Jan, [facility] [address] [id number] [address] [place] [address], [place] [address] Jan, [facility] [address] [id number] [address] [place] [address], [place] [address] Jan, [facility] [address] [id number] [address] [place] [address], [place] [address] Jan, [facility] [address] [id number] [address] [place] [address], [place] [address] Dec, [facility] [address] [id number] [address] [place] [address], [place] [address] Dec, [facility] [address] [id number] [address] [place] [address], [place] [address] Dec, [facility] [address] [id number] [address] [place] [address], [place] [address] Dec, [facility] [address] [id number] [address] [place] [address], [place] [address] Nov, [facility] [address] [id number] [address] [place] [address], [place] [address] Nov, [facility] [address] [id number] [address] [place] [address], [place] [address] Nov, [facility] [address] [id number] [address] [place] [address], [place] [address] Nov, [facility] [address] [id number] [address] [place] [address], [place] [address] Nov, [facility] [address] [id number] [address] [place] [address], [place] [address] Nov, [facility] [address] [id number] [address] [place] [address], [place] [address] Oct, [facility] [address] [id number] [address] [place] [address], [place] [address] Oct, [facility] [address] [id number] [address] [place] [address], [place] [address] Oct, [facility] [address] [id number] [address] [place] [address], [place] [address] Oct, [facility] [address] [id number] [address] [place] [address], [place] [address] Oct, [facility] [address] [id number] [address] [place] [address], [place] [address] Oct, [facility] [address] [id number] [address] [place] [address], [place] [address] Sep, [facility] [address] [id number] [address] [place] [address], [place] [address] Sep, [facility] [address] [id number] [address] [place] [address], [place] [address] Sep, [facility] [address] [id number] [address] [place] [address], [place] [address] Sep, [facility] [address] [id number] [address] [place] [address], [place] [address] Aug, [facility] [address] [id number] [address] [place] [address], [place] [address] Aug, [facility] [address] [id number] [address] [place] [address], [place] [address] Apr, [facility] [address] [id number] [address] [place] [address], [place] [address] Apr, [facility] [address] [id number] [address] [place] [address], [place] [address] Apr, [facility] [address] [id number] [address] [place] [address], [place] [address] Apr, [facility] [address] [id number] [address] [place] [address], [place] [address] Apr, [facility] [address] [id number] [address] [place] [address], [place] [address] Apr, [facility] [address] [id number] [address] [place] [address], [place] [address] March, [facility] [address] [id number] [address] [place] [address], [place] [address] March, [facility] [address] [id number] [address] [place] [address], [place] [address] Dec, [facility] [address] [id number] [address] [place] [address], [place] [address] Dec, [facility] [address] [id number] [address] [place] [address], [place] [address] Sep, [facility] [address] [id number] [address] [place] [address], [place] [address] Sep, [facility] [address] [id number] [address] [place] [address], [place] [address] Aug, [facility] [address] [id number] [address] [place] [address], [place] [address] Aug, [facility] [address] [id number] [address] [place] [address], [place] [address] Aug, [facility] [address] [id number] [address] [place] [address], [place] [address] Aug, [facility] [address] [id number] [address] [place] [address], [place] [address] Aug, [facility] [address] [id number] [address] [place] [address], [place] [address] Aug, [facility] [address] [id number] [address] [place] [address], [place] [address] Aug, [facility] [address] [id number] [address] [place] [address], [place] [address] Aug, [facility] [address] [id number] [address] [place] [address], [place] [address] Aug, [facility] [address] [id number] [address] [place] [address], [place] [address] Aug, [facility] [address] [id number] [address] [place] [address], [place] [address] 27 Jul, 2013 [facility] [address] [id number] [address] [place] [address], [place] [address] Jul, [facility] [address] [id number] [address] [place] [address], [place] [address] 05 Jul, 2013 [facility] [address] [id number] [address] [place] [address], [place] [address] Jun, [facility] [address] [id number] [address] [place] [address], [place] [address] May, [facility] [address] [id number] [address] [place] [address], [place] [address] May, [facility] [address] [id number] [address] [place] [address], [place] [address] May, [facility] [address] [id number] [address] [place] [address], [place] [address] Apr, [facility] [address] [id number] [address] [place] [address], [place] [address] March, [facility] [address] [id number] [address] [place] [address], [place] [address] March, [facility] [address] [id number] [address] [place] [address], [place] [address] 30 Feb, 2013 [facility] [address] [id number] [address] [place] [address], [place] [address] 18 Feb, 2013 [facility] [address] [id number] [address] [place] [address], [place] [address] Feb, [facility] [address] [id number] [address] [place] [address] Feb, [facility] [address] [id number] [address] [place] [address], [place] [address] Jan, [facility] [address] [id number] [address] [place] [address], [place] [address] Jan, [facility] [address] [id number] [address] [place] [address], [place] [address] Jan, [facility] [address] [id number] [address] [place] [address], [place] [address] Jan, [facility] [address] [id number] [address] [place] [address], [place] [address] Dec, [facility] [address] [id number] [address] [place] [address], [place] [address] Dec, [facility] [address] [id number] [address] [place] [address], [place] [address] Dec, [facility] [address] [id number] [address] [place] [address], [place] [address] Nov, [facility] [address] [id number] [address] [place] [address], [place] [address] Nov, [facility] [address] [id number] [address] [place] [address], [place] [address] Nov, [facility] [address] [id number] [address] [place] [address], [place] [address] Nov, [facility] [address] [id number] [address] [place] [address], [place] [address] Oct, [facility] [address] [id number] [address] [place] [address], [place] [address] Oct, [facility] [address] [id number] [address] [place] [address], [place] [address] Oct, [facility] [address] [id number] [address] [place] [address], [place] [address] Oct, [facility] [address] [id number] [address] [place] [address], [place] [address] Sep, [facility] [address] [id number] [address] [place] [address], [place] [address] Sep, [facility] [address] [id number] [address] [place] [address], [place] [address] Sep, [facility] [address] [id number] [address] [place] [address], [place] [address] Sep, [facility] [address] [id number] [address] [place] [address], [place] [address] Aug, [facility] [address] [id number] [address] [place] [address], [place] [address] Aug, [facility] [address] [id number] [address] [place] [address], [place] [address] Aug, [facility] [address] [id number] [address] [place] [address], [place] [address] Jul, [facility] [address] [id number] [address] [place] [address], [place] [address] Jun, [facility] [address] [id number] [address] [place] [address], [place] [address] May, [facility] [address] [id number] [address] [place] [address], [place] [address] May, [facility] [address] [id number] [address] [place] [address], [place] [address] May, [facility] [address] [id number] [address] [place] [address], [place] [address] March, [facility] [address] [id number] [address] [place] [address], [place] [address] March, [facility] [address] [id number] [address] [place] [address], [place] [address] Feb, [facility] [address] [id number] [address] [place] [address], [place] [address] Feb, 2012 [facility] [address] [id number] [address] [place] [address], [place] [address] 24 Feb, 2012 [facility] [address] [id number] [address] [place] [address], [place] [address] 17 Feb, 2012 [facility] [address] [id number] [address] [place] [address], [place] [address] Feb, [facility] [address] [id number] [address] [place] [address], [place] [address] Feb, [facility] [address] [id number] [address] [place] [address], [place] [address] Feb, [facility] [address] [id number] [address] [place] [address], [place] [address] Feb, [facility] [address] [id number] [address] [place] [address], [place] [address] Dec, [facility] [address] [id number] [address] [place] [address], [place] [address] Nov, [facility] [address] [id number] [address] [place] [address], [place] [address] Nov, [facility] [address] [id number] [address] [place] [address], [place] [address] Nov, [facility] [address] [id number] [address] [place] [address], [place] [address] Nov, [facility] [address] [id number] [address] [place] [address], [place] [address] Nov, [facility] [address] [id number] [address] [place] [address], [place] [id number] Nov, [facility] [address] [id number] [address] [place] [address], [place] [id number] Oct, [facility] [address] [id number] [address] [place] [address], [place] [id number] Sep, [facility] [address] [id number] [address] [place] [id number] Sep, [facility] [address] [id number] [address] [place] [id number] Sep, [facility] [address] [id number] [address] [place] [id number] Sep, [facility] [address] [id number] [address] [place] [id number] Aug, [facility] [address] [id number] [address] [place] [phone] Aug, [facility] [address] [id number] [address] [place] [id number] Aug, [facility] [address] [id number] [address] [place] [phone] Aug, [facility] [address] [id number] [address] [place] [phone] Aug, [facility] [address] [id number] [address] [place] [phone] Aug, [facility] [address] [id number] [address] [place] [id number] Aug, [facility] [address] [id number] [address] [place] [id number] Aug, [facility] [address] [id number] [address] [place] [phone] Aug, [facility] [address] [id number] [address] [place] [id number] Jul, [facility] [address] [id number] [address] [place] [phone] May, IMMUNIZATIONS No Known Immunizations SOCIAL HISTORY Never Assessed REASON FOR VISIT [place] f/u, States he is taking a supplement called forskolin, unable to put that in the list PLAN OF CARE Activity Details Follow Up 2 Months Reason:[place] f/u VITAL SIGNS Height 68 in 2018-04-30 Weight 197 lbs 2018-04-30 BMI 29.95 kg/m2 2018-04-30 Blood pressure systolic 110 mmHg 2018-04-30 Blood pressure diastolic 78 mmHg 2018-04-30 MEDICATIONS Medication Instructions Dosage Frequency Start Date End Date Duration S tatus Multivital Active Lisinopril 20 mg Orally Once a day 1 tablet 24h 30 Active Levothyroxine Sodium 125 mcg 1 tablet 24h 30 Active Cymbalta 60 mg Orally twice a day 1 capsule 12h March, Active Lipitor 10 mg Orally Once a day 1 tablet 24h 24 Jan, 2015 Active Fish Oil 1200 MG Orally Once a day 2 capsule 24h Active Cialis 20 mg Orally Once a day 1 tablet 24h 17 Sep, 2017 Not-Taking Rexulti 0.5 MG Orally Once a day 1 tablet 24h Jul, Active Protonix 40 mg Orally Once a day, voucher 1st fill. 1 tablet Active Topiramate 100 mg Orally Once a day 1 tablet 24h Active Amitriptyline HCl 10 mg Orally Once a day at bedtime 1 tablet Apr, 30 day(s) Active RESULTS No Results PROCEDURES No Known [...]
--- OUTSIDE RECORDS SUMMARY | 2020-02-07 09:25 | XMS REPORT ---
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 Helper Name Role Phone BRIDGETTE, XAVIER Unavailable PROBLEMS Type Condition ICD9-CM Code KEB11-ER Code Onset Dates Condition S tatus SNOMED Code Problem Tingling in extremities R20.2 Active 85784294 Problem Generalized anxiety disorder F41.1 A ctive 79876998 Problem Personality disorder in adult F60.9 Active 24541412 Problem Hypothyroidism (acquired) E03.9 Acti ve 175820218 Problem Depression, unspecified depression type F32.9 Active 35825122 Problem Gastroesophageal reflux disease without esophagitis K21.9 Active 824426871 Problem Drug-induced erectile dysfunction N52.2 Active 314309392 Problem Major depressive disorder, recurrent, moderate F33 .1 Active 91168551 Problem Primary insomnia F51.01 Active 397 2004 Problem Acute left-sided low back pain with left-sided sciatica M54.42 Active 268009647 Problem 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 Active 163963189 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 24853238 Problem Insomnia, unspecified type G47.00 Act mary 481341317 Problem Gastroesophageal reflux disease, esophagitis pre sence not specified K21.9 Active 111609773 Problem Anxiety F41.9 Active 22111436 Problem Acquired hypothyroidism E03.9 Active 220524268 Problem Secondary hypertension I15.9 Active 43971050 Problem Acute eczema L30.9 Active 6267641 02 Problem Hypercholesterolemia E78.0 Active 29614188 Problem Environmental allergies Z91.09 Active 165448643 ALLERGIES Substance Reaction Event Type Date Status Amoxicillin vomiting Drug Allergy March, Active ENCOUNTERS Encounter Location Date Diagnosis [facility] [address] [facility] [id number] [address] [place] [address] Jul, [facility] [address] [place] [id number] [address] [place] [address] Jun, Generalized anxiety disorder F41.1 ; Major depressive disorder, recurrent, moderate F33.1 ; Primary insomnia F51.01 and Personality disorder in adult F60.9 [facility] [address] [facility] [id number] [address] [place] [address] May, Acquired hypothyroidism E03. 9 [facility] [address] [facility] [id number] [address] [place] [address] 27 May, 2018 Hypothyroidism (acquired) E0 3.9 and Gastroesophageal reflux disease without esophagitis K21.9 [place] [address] [facility] [id number] [address] [place] [address] Apr, [facility] [address] [place] [id number] [address] [place] [address] Apr, Skin infection L08.9 [place] [address] [facility] [id number] [address] [place] [address] Apr, Generalized anxiety disorder F41.1 ; Major depressive disorder, recurrent, moderate F33.1 ; Primary insomnia F51.01 and Personality disorder in adult F60.9 [place] [address] [place] [id number] [address] [place] [address] March, Generalized anxiety disorder F41.1 ; Major depressive disorder, recurrent, moderate F33.1 and Personality disorder in adult F60.9 [place] [address] [facility] [id number] [address] [place] [address] Feb, [place] [address] [facility] [id number] [address] [place] [address] Dec, Generalized anxiety disorder F41.1 ; Major depressive disorder, recurrent, moderate F33.1 and Personality disorder in adult F60.9 [facility] [address] [facility] [id number] [address] [place] [address] Dec, Acute left-sided low back pa in with left-sided sciatica M54.42 [facility] [address] [id number] [address] [place] [address] Nov, [facility] [address] [id number] [address] [place] [address] Oct, Generalized anxiety disorder F41.1 ; Major depressive disorder, recurrent, moderate F33.1 and Personality disorder in adult F60.9 [facility] [address] [id number] [address] [place] [address] Sep, Acquired hypothyroidism E03. 9 ; Hypercholesterolemia E78.0 ; Generalized anxiety disorder F41.1 and Drug-induced erectile dysfunction N52.2 [facility] [address] [id number] [address] [place] [address] Sep, [facility] [address] [id number] [address] [place] [address] Sep, Acquired hypothyroidism E03. 9 ; Hypercholesterolemia E78.0 ; Generalized anxiety disorder F41.1 and Drug-induced erectile dysfunction N52.2 [facility] [address] [id number] [address] [place] [address] Sep, Generalized anxiety disorder F41.1 ; Major depressive disorder, recurrent, moderate F33.1 and Personality disorder in adult F60.9 [facility] [address] [id number] [address] [place] [id number] Aug, Dental examination Z01.20 [facility] [address] [id number] [address] [place] [id number] Aug, Dental caries K02.9 [facility] [address] [id number] [address] [place] [address] Aug, [facility] [address] [id number] [address] [place] [id number] Aug, Dental examination Z01.20 [facility] [address] [id number] [address] [place] [address] Jul, Major depressive disorder, r ecurrent, moderate F33.1 [facility] [address] [address] Jul, Generalized anxiety disorder F41.1 ; Major depressive disorder, recurrent, moderate F33.1 and Personality disorder in adult F60.9 [place] [address] [id number] 08 Jul, 2017 Generalized anxiety disorder F41.1 ; Major depressive disorder, recurrent, moderate F33.1 and Personality disorder in adult F60.9 [place] [address] [address] Jun, Generalized anxiety disorder F41.1 ; Major depressive disorder, recurrent, moderate F33.1 and Personality disorder in adult F60.9 [place] [address] [address] Apr, Generalized anxiety disorder F41.1 ; Major depressive disorder, recurrent, moderate F33.1 and Personality disorder in adult F60.9 [place] [address] [address] March, Acquired hypothyroidism E03. 9 [place] [address] [address] March, Acquired hypothyroidism E03. 9 and Left lower quadrant pain R10.32 [place] [address] [address] March, Hypercholesterolemia E78.0 ; Acquired hypothyroidism E03.9 ; Insomnia, unspecified type G47.00 ; Secondary hypertension I15.9 ; Gastroesophageal reflux disease, esophagitis presence not specified K21.9 ; Tingling in extremities R20.2 ; Environmental allergies Z91.09 ; Depression, unspecified depression type F32.9 and Left lower quadrant pain R10.32 [place] [address] [address] Feb, High risk sexual behavior Z7 2.51 [place] [address] [address] Feb, Major depressive disorder, r ecurrent, moderate F33.1 and Generalized anxiety disorder F41.1 [place] [address] [address] Dec, Major depressive disorder, r ecurrent, moderate F33.1 [place] [address] [place] [id number] [place] [address] Dec, [place] [address] [place] [address] Dec, Acquired hypothyroidism E03. 9 and High risk sexual behavior Z72.51 [place] [address] [place] [address] Dec, Major depressive disorder, r ecurrent, moderate F33.1 and Generalized anxiety disorder F41.1 [place] [address] [address] Dec, Acquired hypothyroidism E03. 9 ; Secondary hypertension I15.9 and Acute eczema L30.9 [place] [address] [address] Nov, Acquired hypothyroidism E03. 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 ; Hypercholesterolemia E78.0 ; Gastroesophageal reflux disease, esophagitis presence not specified K21.9 ; Anxiety F41.9 and Secondary hypertension I15.9 [place] [address] [address] Oct, Major depressive disorder, r ecurrent, moderate F33.1 and Generalized anxiety disorder F41.1 [place] [address] [place] [address] Aug, [place] [address] [address] Aug, Insomnia, unspecified type G 47.00 ; Acquired hypothyroidism E03.9 ; Hypercholesterolemia E78.0 and Gastroesophageal reflux disease, esophagitis presence not specified K21.9 [place] [address] [address] Jul, [place] [address] [address] 06 Jul, 2016 Major depressive disorder, r ecurrent, in partial remission F33.41 and Generalized anxiety disorder F41.1 [place] [address] [address] Jun, [place] [address] [address] Jun, Cervical pain (neck) M54.2 a nd Cervical neuropathic pain M54.12 [place] [address] [address] 14 Apr, 2016 Insomnia, unspecified type G 47.00 ; Acquired hypothyroidism E03.9 ; Hypercholesterolemia E78.0 ; 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 ; Depression, unspecified depression type F32.9 ; 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 ; Gastroesophageal reflux disease, esophagitis presence not specified K21.9 ; Anxiety F41.9 ; Secondary hypertension I15.9 and Post- nasal drainage R09.82 [place] [address] [address] Apr, [place] [address] [address] March, [place] [address] [address] March, Unspecified hypothyroidism 2 44.9 and HTN (hypertension) 401.9 [place] [address] [address] March, [place] [address] [address] Dec, [place] [address] [address] Nov, [facility] [address] [place] [id number] [address] [place] [address] Sep, Generalized anxiety disorder F41.1 and Major depressive disorder, recurrent, in partial remission F33.41 [place] [address] [place] [id number] [address] [place] [address] Jun, Unspecified hypothyroidism 2 44.9 ; Sciatica 724.3 ; Major depressive disorder, recurrent episode, in partial or unspecified remission 296.35 ; Combined hyperlipidemia 272.2 ; HTN (hypertension) 401.9 ; Hidrosis 780.8 ; Cat allergies 477.8 and Environmental allergies V15.09 [place] [address] [address] Jun, Major depressive disorder, r ecurrent episode, in partial or unspecified remission 296.35 ; Insomnia, unspecified 780.52 and Generalized anxiety disorder 300.02 [place] [address] [place] [id number] [address] [place] [address] May, [facility] [address] [place] [id number] [address] [place] [address] Apr, [place] [address] [address] Apr, Closed mallet fracture of di stal phalanx of ring finger 816.02 [place] [address] [place] [id number] [address] [place] [address] March, Depression, major, recurrent , moderate 296.32 ; Generalized anxiety disorder 300.02 and Borderline personality disorder 301.83 [facility] [address] [place] [id number] [address] [place] [address] Feb, [facility] [address] [address] Feb, [facility] [address] [place] [id number] [address] [place] [address] Jan, [facility] [address] [id number] [address] [place] [address], [place] [address] Jan, [facility] [address] [id number] [address] [place] [address], [place] [address] Jan, [facility] [address] [id number] [address] [place] [address], [place] [address] Jan, [facility] [address] [id number] [address] [place] [address], [place] [address] Jan, [facility] [address] [id number] [address] [place] [address], [place] [address] Jan, [facility] [address] [id number] [address] [place] [address], [place] [address] Dec, [facility] [address] [id number] [address] [place] [address], [place] [address] Dec, [facility] [address] [id number] [address] [place] [address], [place] [address] Dec, [facility] [address] [id number] [address] [place] [address], [place] [address] Dec, [facility] [address] [id number] [address] [place] [address], [place] [address] Nov, [facility] [address] [id number] [address] [place] [address], [place] [address] Nov, [facility] [address] [id number] [address] [place] [address], [place] [address] Nov, [facility] [address] [id number] [address] [place] [address], [place] [address] Nov, [facility] [address] [id number] [address] [place] [address], [place] [address] Nov, [facility] [address] [id number] [address] [place] [address], [place] [address] Nov, [facility] [address] [id number] [address] [place] [address], [place] [address] Oct, [facility] [address] [id number] [address] [place] [address], [place] [address] Oct, [facility] [address] [id number] [address] [place] [address], [place] [address] Oct, [facility] [address] [id number] [address] [place] [address], [place] [address] Oct, [facility] [address] [id number] [address] [place] [address], [place] [address] Oct, [facility] [address] [id number] [address] [place] [address], [place] [address] Oct, [facility] [address] [id number] [address] [place] [address], [place] [address] Sep, [facility] [address] [id number] [address] [place] [address], [place] [address] Sep, [facility] [address] [id number] [address] [place] [address], [place] [address] Sep, [facility] [address] [id number] [address] [place] [address], [place] [address] Sep, [facility] [address] [id number] [address] [place] [address], [place] [address] Aug, [facility] [address] [id number] [address] [place] [address], [place] [address] Aug, [facility] [address] [id number] [address] [place] [address], [place] [address] Apr, [facility] [address] [id number] [address] [place] [address], [place] [address] Apr, [facility] [address] [id number] [address] [place] [address], [place] [address] Apr, [facility] [address] [id number] [address] [place] [address], [place] [address] Apr, [facility] [address] [id number] [address] [place] [address], [place] [address] Apr, [facility] [address] [id number] [address] [place] [address], [place] [address] Apr, [facility] [address] [id number] [address] [place] [address], [place] [address] March, [facility] [address] [id number] [address] [place] [address], [place] [address] March, [facility] [address] [id number] [address] [place] [address], [place] [address] Dec, [facility] [address] [id number] [address] [place] [address], [place] [address] Dec, [facility] [address] [id number] [address] [place] [address], [place] [address] Sep, [facility] [address] [id number] [address] [place] [address], [place] [address] Sep, [facility] [address] [id number] [address] [place] [address], [place] [address] Aug, [facility] [address] [id number] [address] [place] [address], [place] [address] Aug, [facility] [address] [id number] [address] [place] [address], [place] [address] Aug, [facility] [address] [id number] [address] [place] [address], [place] [address] Aug, [facility] [address] [id number] [address] [place] [address], [place] [address] Aug, [facility] [address] [id number] [address] [place] [address], [place] [address] Aug, [facility] [address] [id number] [address] [place] [address], [place] [address] Aug, [facility] [address] [id number] [address] [place] [address], [place] [address] Aug, [facility] [address] [id number] [address] [place] [address], [place] [address] Aug, [facility] [address] [id number] [address] [place] [address], [place] [address] Aug, [facility] [address] [id number] [address] [place] [address], [place] [address] 27 Jul, 2013 [facility] [address] [id number] [address] [place] [address], [place] [address] Jul, [facility] [address] [id number] [address] [place] [address], [place] [address] 05 Jul, 2013 [facility] [address] [id number] [address] [place] [address], [place] [address] Jun, [facility] [address] [id number] [address] [place] [address], [place] [address] May, [facility] [address] [id number] [address] [place] [address], [place] [address] May, [facility] [address] [id number] [address] [place] [address], [place] [address] May, [facility] [address] [id number] [address] [place] [address], [place] [address] Apr, [facility] [address] [id number] [address] [place] [address], [place] [address] March, [facility] [address] [id number] [address] [place] [address], [place] [address] March, [facility] [address] [id number] [address] [place] [address], [place] [address] 30 Feb, 2013 [facility] [address] [id number] [address] [place] [address], [place] [address] 18 Feb, 2013 [facility] [address] [id number] [address] [place] [address], [place] [address] Feb, [facility] [address] [id number] [address] [place] [address] Feb, [facility] [address] [id number] [address] [place] [address], [place] [address] Jan, [facility] [address] [id number] [address] [place] [address], [place] [address] Jan, [facility] [address] [id number] [address] [place] [address], [place] [address] Jan, [facility] [address] [id number] [address] [place] [address], [place] [address] Jan, [facility] [address] [id number] [address] [place] [address], [place] [address] Dec, [facility] [address] [id number] [address] [place] [address], [place] [address] Dec, [facility] [address] [id number] [address] [place] [address], [place] [address] Dec, [facility] [address] [id number] [address] [place] [address], [place] [address] Nov, [facility] [address] [id number] [address] [place] [address], [place] [address] Nov, [facility] [address] [id number] [address] [place] [address], [place] [address] Nov, [facility] [address] [id number] [address] [place] [address], [place] [address] Nov, [facility] [address] [id number] [address] [place] [address], [place] [address] Oct, [facility] [address] [id number] [address] [place] [address], [place] [address] Oct, [facility] [address] [id number] [address] [place] [address], [place] [address] Oct, [facility] [address] [id number] [address] [place] [address], [place] [address] Oct, [facility] [address] [id number] [address] [place] [address], [place] [address] Sep, [facility] [address] [id number] [address] [place] [address], [place] [address] Sep, [facility] [address] [id number] [address] [place] [address], [place] [id number] Sep, [facility] [address] [id number] [address] [place] [address], [place] [id number] Sep, [facility] [address] [id number] [address] [place] [address], [place] [id number] Aug, [facility] [address] [id number] [address] [place] [address], [place] [id number] Aug, [facility] [address] [id number] [address] [place] [address], [place] [id number] Aug, [facility] [address] [id number] [address] [place] [address], [place] [id number] Jul, [facility] [address] [id number] [address] [place] [address], [place] [id number] Jun, [facility] [address] [id number] [address] [place] [address], [place] [id number] May, [facility] [address] [id number] [address] [place] [address], [place] [id number] May, [facility] [address] [id number] [address] [place] [address], [place] [address] May, [facility] [address] [id number] [address] [place] [address], [place] [id number] March, [facility] [address] [id number] [address] [place] [address], [place] [address] March, [facility] [address] [id number] [address] [place] [address], [place] [id number] Feb, [facility] [address] [id number] [address] [place] [address], [place] [address] Feb, 2012 [facility] [address] [id number] [address] [place] [address], [place] [id number] 24 Feb, 2012 [facility] [address] [id number] [address] [place] [address], [place] [id number] 17 Feb, 2012 [facility] [address] [id number] [address] [place] [address], [place] [id number] Feb, [facility] [address] [id number] [address] [place] [address], [place] [id number] Feb, [facility] [address] [id number] [address] [place] [address], [place] [id number] Feb, [facility] [address] [id number] [address] [place] [address], [place] [address] Feb, [facility] [address] [id number] [address] [place] [address], [place] [id number] Dec, [facility] [address] [id number] [address] [place] [address], [place] [id number] Nov, [facility] [address] [id number] [address] [place] [address], [place] [address] Nov, [facility] [address] [id number] [address] [place] [address], [place] [id number] Nov, [facility] [address] [id number] [address] [place] [address], [place] [id number] Nov, [facility] [address] [id number] [address] [place] [address], [place] [id number] Nov, [facility] [address] [id number] [address] [place] [address], [place] [id number] Nov, [facility] [address] [id number] [address] [place] [address], [place] [id number] Oct, [facility] [address] [id number] [address] [place] [address], [place] [id number] Sep, [facility] [address] [id number] [address] [place] [id number] Sep, [facility] [place] [address] [id number] [address] [place] [id number] Sep, [facility] [place], [facility] [address] [id number] [address] [place] [phone] Sep, [facility] [place], [facility] [address] [id number] [address] [place] [id number] Aug, [facility] [place], [facility] [address] [id number] [address] [place] [id number] Aug, [facility] [address] [id number] [address] [place] [id number] Aug, [facility] [place], [facility] [address] [id number] [address] [place] [id number] Aug, [facility] [address] [id number] [address] [place] [phone] Aug, [facility] [address] [id number] [address] [place] [phone] Aug, [facility] [address] [id number] [address] [place] [id number] Aug, [facility] [address] [id number] [address] [place] [phone] Aug, [facility] [address] [id number] [address] [place] [id number] Aug, [facility] [address] [id number] [address] [place] [phone] Jul, [facility] [address] [id number] [address] [place] [phone] May, IMMUNIZATIONS No Known Immunizations SOCIAL HISTORY Never Assessed REASON FOR VISIT [place] f/u ROSY PLAN OF CARE Activity Details Follow Up 4 Weeks Reason:[place] f/u VITAL SIGNS Height 68 in 2018-04-02 Weight 198 lbs 2018-04-02 Heart Rate 120 bpm 2018-04-02 Respiratory Rate 20 2018-04-02 BMI 30.10 kg/m2 2018-04-02 Blood pressure systolic 122 mmHg 2018-04-02 Blood pressure diastolic 82 mmHg 2018-04-02 MEDICATIONS Medication Instructions Dosage Frequency Start Date End Date Duration S tatus Levothyroxine Sodium 125 mcg 1 tablet 24h 30 Active Hydrocodone-Acetaminophen 5-325 MG Orally every 6 hrs 1 tablet as need ed 6h Not-Taking Topiramate 100 mg Orally Once a day 1 tablet 24h 30 days Active Aluminum Chloride 20 % 1 time per dayat night May, 12 Not-Taking Fish Oil 1200 MG Orally Once a day 2 capsule 24h Active Protonix 40 mg Orally Once a day, voucher 1st fill. 1 tablet Active Lisinopril 20 mg Orally Once a day 1 tablet 24h 30 Active Cialis 20 mg Orally Once a day 1 tablet 24h Sep, Active Lipitor 10 mg Orally Once a day 1 tablet 24h 24 Jan, 2015 Active Rexulti 0.5 MG Orally Once a day 1 tablet 24h Jul, Active Cymbalta 60 mg Orally twice a day 1 capsule 12h March, 30 day(s) Active RESULTS No Results PROCEDURES [...]
--- OUTSIDE RECORDS SUMMARY | 2020-02-07 09:26 | XMS REPORT ---
Author Author Britton ANGELES [facility] Address [address] [place] [address] Care Team Providers Care Aquatic Physiotherapist Name Role Phone BRIDGETTEXAVIER Unavailable PROBLEMS Type Condition ICD9-CM Code [id number] Code Onset Dates Condition S tatus SNOMED Code Problem Acute eczema L30.9 Active 9002202 02 Problem Tingling in extremities R20.2 Active 38585819 Problem Environmental allergies Z91.09 Active 783911681 Problem Primary insomnia F51.01 Active 397 2004 Problem Acute left-sided low back pain with left-sided sciatica M54.42 Active 614087159 Problem Generalized anxiety disorder F41.1 A ctive 15524814 Problem Personality disorder in adult F60.9 Active 23341357 Problem Drug-induced erectile dysfunction N52.2 Active 343737273 Problem Major depressive disorder, recurrent, moderate F33 .1 Active 22406977 Problem Anxiety F41.9 Active 27320369 Problem Acquired hypothyroidism E03.9 Active 882148428 Problem Hypercholesterolemia E78.0 Active 15300875 Problem Secondary hypertension I15.9 Active 97409665 Problem Depression, unspecified depression type F32.9 Active 10046470 Problem 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 Active 231831701 Problem Insomnia, unspecified type G47.00 Act mary 837362045 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 56342685 Problem Gastroesophageal reflux disease, esophagitis pre sence not specified K21.9 Active [id number] ALLERGIES No Information ENCOUNTERS Encounter Location Date Diagnosis [facility] [address] [facility] [id number] [address] [place] [address] 07 Jun, 2018 [facility] [address] [facility] [id number] [address] [place] [address] Apr, Skin infection L08.9 [facility] [address] [facility] [id number] [address] [place] [address] 05 Apr, 2018 Generalized anxiety disorder F41.1 ; Major depressive disorder, recurrent, moderate F33.1 ; Primary insomnia F51.01 and Personality disorder in adult F60.9 [facility] [address] [facility] [id number] [address] [place] [address] March, Generalized anxiety disorder F41.1 ; Major depressive disorder, recurrent, moderate F33.1 and Personality disorder in adult F60.9 [facility] [address] [facility] [id number] [address] [place] [address] Feb, [facility] [address] [facility] [id number] [address] [place] [address] 06 Dec, 2017 Generalized anxiety disorder F41.1 ; Major depressive disorder, recurrent, moderate F33.1 and Personality disorder in adult F60.9 [facility] [address] [facility] [id number] [address] [place] [address] Dec, Acute left-sided low back pa in with left-sided sciatica M54.42 [facility] [address] [facility] [id number] [address] [place] [address] Nov, [facility] [address] [facility] [id number] [address] [place] [address] Oct, Generalized anxiety disorder F41.1 ; Major depressive disorder, recurrent, moderate F33.1 and Personality disorder in adult F60.9 [facility] [address] [facility] [id number] [address] [place] [address] Sep, Acquired hypothyroidism E03. 9 ; Hypercholesterolemia E78.0 ; Generalized anxiety disorder F41.1 and Drug-induced erectile dysfunction N52.2 [facility] [address] [facility] [id number] [address] [place] [address] Sep, [facility] [address] [facility] [id number] [address] [place] [address] 17 Sep, 2017 Acquired hypothyroidism E03. 9 ; Hypercholesterolemia E78.0 ; Generalized anxiety disorder F41.1 and Drug-induced erectile dysfunction N52.2 [facility] [address] [id number] [address] [place] [address] Sep, Generalized anxiety disorder F41.1 ; Major depressive disorder, recurrent, moderate F33.1 and Personality disorder in adult F60.9 [facility] [address] [id number] [address] [place] [id number] Aug, Dental examination Z01.20 [facility] [address] [id number] [address] [place] [address] [id number] Aug, Dental caries K02.9 [facility] [address] [id number] [address] [place] [address] Aug, [facility] [address] [id number] [address] [place] [id number] Aug, Dental examination Z01.20 [facility] [address] [id number] [address] [place] [address] Jul, Major depressive disorder, r ecurrent, moderate F33.1 [facility] [address] [id number] [address] [place] [address] Jul, Generalized anxiety disorder F41.1 ; Major depressive disorder, recurrent, moderate F33.1 and Personality disorder in adult F60.9 [facility] [address] [id number] [address] [place] [address] 08 Jul, 2017 Generalized anxiety disorder F41.1 ; Major depressive disorder, recurrent, moderate F33.1 and Personality disorder in adult F60.9 [facility] [address] [id number] [address] [place] [address] Jun, Generalized anxiety disorder F41.1 ; Major depressive disorder, recurrent, moderate F33.1 and Personality disorder in adult F60.9 [facility] [address] [id number] [address] [place] [address] Apr, Generalized anxiety disorder F41.1 ; Major depressive disorder, recurrent, moderate F33.1 and Personality disorder in adult F60.9 [facility] [address] [address] March, Acquired hypothyroidism E03. 9 [facility] [place] [address] [address] March, Acquired hypothyroidism E03. 9 and Left lower quadrant pain R10.32 [facility] [address] [address] March, Hypercholesterolemia E78.0 ; Acquired hypothyroidism E03.9 ; Insomnia, unspecified type G47.00 ; Secondary hypertension I15.9 ; Gastroesophageal reflux disease, esophagitis presence not specified K21.9 ; Tingling in extremities R20.2 ; Environmental allergies Z91.09 ; Depression, unspecified depression type F32.9 and Left lower quadrant pain R10.32 [facility] [place] [address] [address] Feb, High risk sexual behavior Z7 2.51 [facility] [address] [address] Feb, Major depressive disorder, r ecurrent, moderate F33.1 and Generalized anxiety disorder F41.[address] [address] Dec, Major depressive disorder, r ecurrent, moderate F33.1 [facility] [place] [address] [address] Dec, [facility] [place] [address] [address] 16 Dec, 2016 Acquired hypothyroidism E03. 9 and High risk sexual behavior Z72.51 [facility] [place] [address] [address] 07 Dec, 2016 Major depressive disorder, r ecurrent, moderate F33.1 and Generalized anxiety disorder F41.1 [facility] [place] [address] [address] Dec, Acquired hypothyroidism E03. 9 ; Secondary hypertension I15.9 and Acute eczema L30.9 [facility] [place] [address] [address] Nov, Acquired hypothyroidism E03. 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 ; Hypercholesterolemia E78.0 ; Gastroesophageal reflux disease, esophagitis presence not specified K21.9 ; Anxiety F41.9 and Secondary hypertension I15.9 [facility] [place] [address] [address] Oct, Major depressive disorder, r ecurrent, moderate F33.1 and Generalized anxiety disorder F41.1 [facility] [place] [address] [address] Aug, [facility] [place] [address] [address] Aug, Insomnia, unspecified type G 47.00 ; Acquired hypothyroidism E03.9 ; Hypercholesterolemia E78.0 and Gastroesophageal reflux disease, esophagitis presence not specified K21.9 [facility] [place] [address] [address] Jul, [facility] [place] [address] [address] Jul, Major depressive disorder, r ecurrent, in partial remission F33.41 and Generalized anxiety disorder F41.1 [facility] [place] [address] [address] Jun, [facility] [place] [address] [address] Jun, Cervical pain (neck) M54.2 a nd Cervical neuropathic pain M54.12 [facility] [place] [address] [place] [id number] [place] [address] 14 Apr, 2016 Insomnia, unspecified type G 47.00 ; Acquired hypothyroidism E03.9 ; Hypercholesterolemia E78.0 ; 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 ; Depression, unspecified depression type F32.9 ; 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 ; Gastroesophageal reflux disease, esophagitis presence not specified K21.9 ; Anxiety F41.9 ; Secondary hypertension I15.9 and Post- nasal drainage R09.82 [facility] [address] [address] Apr, [place] [address] [address] March, [facility] [address] [address] March, Unspecified hypothyroidism 2 44.9 and HTN (hypertension) 401.9 [facility] [address] [address] March, [facility] [address] [address] Dec, [facility] [address] [address] Nov, [facility] [address] [address] Sep, Generalized anxiety disorder F41.1 and Major depressive disorder, recurrent, in partial remission F33.41 [facility] [address] [address] Jun, Unspecified hypothyroidism 2 44.9 ; Sciatica 724.3 ; Major depressive disorder, recurrent episode, in partial or unspecified remission 296.35 ; Combined hyperlipidemia 272.2 ; HTN (hypertension) 401.9 ; Hidrosis 780.8 ; Cat allergies 477.8 and Environmental allergies V15.09 [facility] [address] [address] Jun, Major depressive disorder, r ecurrent episode, in partial or unspecified remission 296.35 ; Insomnia, unspecified 780.52 and Generalized anxiety disorder 300.02 [facility] [address] [place] [id number] [address] [place] [address] May, [facility] [address] [id number] [address] [place] [address] Apr, [facility] [address] [facility] [id number] [address] [place] [address] Apr, Closed mallet fracture of di stal phalanx of ring finger 816.02 [facility] [address] [id number] [address] [place] [address] March, Depression, major, recurrent , moderate 296.32 ; Generalized anxiety disorder 300.02 and Borderline personality disorder 301.83 [facility] [address] [id number] [address] [place] [address] Feb, [facility] [address] [facility] [id number] [address] [place] [address] Feb, [facility] [address] [facility] [id number] [address] [place] [address] Jan, [facility] [address] [id number] [address] [place] [address] Jan, [facility] [address] [facility] [id number] [address] [place] [address] Jan, [facility] [address] [facility] [id number] [address] [place] [address] Jan, [facility] [address] [id number] [address] [place] [address] Jan, [facility] [address] [id number] [address] [place] [address] Jan, [facility] [address] [facility] [id number] [address] [place] [address] Dec, [facility] [address] [facility] [id number] [address] [place] [address] Dec, [facility] [address] [id number] [address] [place] [address] [place] [address] Dec, [facility] [address] [id number] [address] [place] [address], [place] [address] Dec, [facility] [address] [id number] [address] [place] [address], [place] [address] Nov, [facility] [address] [id number] [address] [place] [address], [place] [address] Nov, [facility] [address] [id number] [address] [place] [address], [place] [address] Nov, [facility] [address] [id number] [address] [place] [address], [place] [address] Nov, [facility] [address] [id number] [address] [place] [address], [place] [address] Nov, [facility] [address] [id number] [address] [place] [address], [place] [address] Nov, [facility] [address] [id number] [address] [place] [address], [place] [address] Oct, [facility] [address] [id number] [address] [place] [address], [place] [address] Oct, [facility] [address] [id number] [address] [place] [address], [place] [address] Oct, [facility] [address] [id number] [address] [place] [address], [place] [address] Oct, [facility] [address] [id number] [address] [place] [address], [place] [address] Oct, [facility] [address] [id number] [address] [place] [address], [place] [address] Oct, [facility] [address] [id number] [address] [place] [address], [place] [address] Sep, [facility] [address] [id number] [address] [place] [address], [place] [address] Sep, [facility] [address] [id number] [address] [place] [address], [place] [address] Sep, [facility] [address] [id number] [address] [place] [address], [place] [address] Sep, [facility] [address] [id number] [address] [place] [address], [place] [address] Aug, [facility] [address] [id number] [address] [place] [address], [place] [address] Aug, [facility] [address] [id number] [address] [place] [address], [place] [address] Apr, [facility] [address] [id number] [address] [place] [address], [place] [address] Apr, [facility] [address] [id number] [address] [place] [address], [place] [address] Apr, [facility] [address] [id number] [address] [place] [address], [place] [address] Apr, [facility] [address] [id number] [address] [place] [address], [place] [address] Apr, [facility] [address] [id number] [address] [place] [address], [place] [address] Apr, [facility] [address] [id number] [address] [place] [address], [place] [address] March, [facility] [address] [id number] [address] [place] [address], [place] [address] March, [facility] [address] [id number] [address] [place] [address], [place] [address] Dec, [facility] [address] [id number] [address] [place] [address], [place] [address] Dec, [facility] [address] [id number] [address] [place] [address], [place] [address] Sep, [facility] [address] [id number] [address] [place] [address] 08 Sep, 2013 [facility] [address] [id number] [address] [place] [address], [place] [address] Aug, [facility] [address] [id number] [address] [place] [address] Aug, [facility] [address] [id number] [address] [place] [address] Aug, [facility] [address] [id number] [address] [place] [address] Aug, [facility] [address] [id number] [address] [place] [address], [place] [address] Aug, [facility] [address] [id number] [address] [place] [address] Aug, [facility] [address] [id number] [address] [place] [address] Aug, [facility] [address] [id number] [address] [place] [address] Aug, [facility] [address] [id number] [address] [place] [address] Aug, [facility] [address] [id number] [address] [place] [address] Aug, [facility] [address] [id number] [address] [place] [address] 27 Jul, 2013 [facility] [address] [id number] [address] [place] [address] 19 Jul, 2013 [facility] [address] [id number] [address] [place] [address] 05 Jul, 2013 [facility] [address] [id number] [address] [place] [address] Jun, [facility] [address] [id number] [address] [place] [address] May, [facility] [address] [id number] [address] [place] [address], [place] [address] May, [facility] [address] [id number] [address] [place] [address], [place] [address] May, [facility] [address] [id number] [address] [place] [address], [place] [address] Apr, [facility] [address] [id number] [address] [place] [address], [place] [address] March, [facility] [address] [id number] [address] [place] [address], [place] [address] March, [facility] [address] [id number] [address] [place] [address], [place] [address] Feb, [facility] [address] [id number] [address] [place] [address], [place] [address] Feb, [facility] [address] [id number] [address] [place] [address], [place] [address] Feb, [facility] [address] [id number] [address] [place] [address], [place] [address] Feb, [facility] [address] [id number] [address] [place] [address], [place] [address] Jan, [facility] [address] [id number] [address] [place] [address], [place] [address] Jan, [facility] [address] [id number] [address] [place] [address], [place] [address] Jan, [facility] [address] [id number] [address] [place] [address], [place] [address] Jan, [facility] [address] [id number] [address] [place] [address], [place] [address] Dec, [facility] [address] [id number] [address] [place] [address], [place] [address] Dec, [facility] [address] [id number] [address] [place] [address], [place] [address] Dec, [facility] [address] [id number] [address] [place] [address], [place] [address] Nov, [facility] [address] [id number] [address] [place] [address], [place] [address] Nov, [facility] [address] [id number] [address] [place] [address], [place] [address] Nov, [facility] [address] [id number] [address] [place] [address], [place] [address] Nov, [facility] [address] [id number] [address] [place] [address], [place] [address] Oct, [facility] [address] [id number] [address] [place] [address], [place] [address] Oct, [facility] [address] [id number] [address] [place] [address], [place] [address] Oct, [facility] [address] [id number] [address] [place] [address], [place] [address] Oct, [facility] [address] [id number] [address] [place] [address], [place] [address] Sep, [facility] [address] [id number] [address] [place] [address], [place] [address] Sep, [facility] [address] [id number] [address] [place] [address], [place] [address] Sep, [facility] [address] [id number] [address] [place] [address] Sep, [facility] [address] [id number] [address] [place] [address], [place] [address] Aug, [facility] [address] [id number] [address] [place] [address], [place] [address] Aug, [facility] [address] [id number] [address] [place] [address], [place] [address] Aug, [facility] [address] [id number] [address] [place] [address], [place] [address] Jul, [facility] [address] [id number] [address] [place] [address], [place] [address] Jun, [facility] [address] [id number] [address] [place] [address], [place] [address] May, [facility] [address] [id number] [address] [place] [address], [place] [address] May, [facility] [address] [id number] [address] [place] [address], [place] [address] May, [facility] [address] [id number] [address] [place] [address], [place] [address] March, [facility] [address] [id number] [address] [place] [address], [place] [address] March, [facility] [address] [id number] [address] [place] [address], [place] [address] Feb, [facility] [address] [id number] [address] [place] [address], [place] [address] Feb, [facility] [address] [id number] [address] [place] [address], [place] [address] Feb, [facility] [address] [id number] [address] [place] [address], [place] [address] Feb, [facility] [address] [id number] [address] [place] [address], [place] [address] Feb, [facility] [address] [id number] [address] [place] [address], [place] [address] Feb, [facility] [address] [id number] [address] [place] [address], [place] [address] Feb, [facility] [address] [id number] [address] [place] [address], [place] [address] Feb, [facility] [address] [id number] [address] [place] [address], [place] [address] Dec, [facility] [address] [id number] [address] [place] [address], [place] [address] Nov, [facility] [address] [id number] [address] [place] [address], [place] [address] Nov, [facility] [address] [id number] [address] [place] [address], [place] [address] Nov, [facility] [address] [id number] [address] [place] [address], [place] [address] Nov, [facility] [address] [id number] [address] [place] [address], [place] [address] Nov, [facility] [address] [id number] [address] [place] [address], [place] [address] Nov, [facility] [address] [id number] [address] [place] [address], [place] [address] Oct, [facility] [address] [id number] [address] [place] [address], [place] [address] Sep, [facility] [address] [id number] [address] [place] [address], [place] [address] Sep, [facility] [address] [id number] [address] [place] [address], [place] [address] Sep, [facility] [facility] [address] [id number] [address] [place] [address], [place] [address] Sep, [facility] [address] [id number] [address] [place] [address], [place] [address] Aug, [facility] [address] [id number] [address] [place] [address], [place] [id number] Aug, [facility] [address] [id number] [address] [place] [address], [place] [id number] Aug, [facility] [address] [id number] [address] [place] [address], [place] [address] Aug, [facility] [address] [id number] [address] [place] [id number] Aug, [facility] [address] [id number] [address] [place] [id number] Aug, [facility] [address] [id number] [address] [place] [id number] Aug, [facility] [address] [facility] [id number] [address] [place] [id number] Aug, [facility] [address] [facility] [id number] [address] [place] [id number] Aug, [facility] [address] [facility] [id number] [address] [place] [id number] Jul, [facility] [address] [facility] [id number] [address] [place] [id number] May, IMMUNIZATIONS No Known Immunizations SOCIAL HISTORY [...]
--- OUTSIDE RECORDS SUMMARY | 2020-02-07 09:26 | XMS REPORT ---
Author Author Britton ANGELES [facility] Address [address] [place] [address] Care Team Providers Care Chief Cruiser Name Role Phone BRIDGETTEXAVIER Unavailable PROBLEMS Type Condition ICD9-CM Code QPG87-OT Code Onset Dates Condition S tatus SNOMED Code Problem Gastroesophageal reflux disease, esophagitis pre sence not specified K21.9 Active 289669473 Problem Environmental allergies Z91.09 Active 320094533 Problem Acute eczema L30.9 Active 6852020 02 Problem Acute left-sided low back pain with left-sided sciatica M54.42 Active 517866107 Problem Drug-induced erectile dysfunction N52.2 Active 901101461 Problem Personality disorder in adult F60.9 Active 42957955 Problem Tingling in extremities R20.2 Active 65841602 Problem Major depressive disorder, recurrent, moderate F33 .1 Active 56035948 Problem Generalized anxiety disorder F41.1 A ctive 68591327 Problem 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 Active 207716099 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 23667352 Problem Hypercholesterolemia E78.0 Active 08295071 Problem Anxiety F41.9 Active 83864663 Problem Secondary hypertension I15.9 Active 17188914 Problem Depression, unspecified depression type F32.9 Active 92106378 Problem Acquired hypothyroidism E03.9 Active 602087447 Problem Insomnia, unspecified type G47.00 Act mary [id number] ALLERGIES No Information ENCOUNTERS Encounter Location Date Diagnosis [facility] [address] [facility] [id number] [address] [place] [id number] March, [facility] [address] [facility] [id number] [address] [place] [id number] Feb, [facility] [address] [facility] [id number] [address] [place] [id number] Dec, Generalized anxiety disorder F41.1 ; Major depressive disorder, recurrent, moderate F33.1 and Personality disorder in adult F60.9 [facility] [address] [facility] [id number] [address] [place] [id number] 06 Dec, 2017 Acute left-sided low back pa in with left-sided sciatica M54.42 [facility] [address] [facility] [id number] [address] [place] [id number] Nov, [facility] [address] [facility] [id number] [address] [place] [phone] Oct, Generalized anxiety disorder F41.1 ; Major depressive disorder, recurrent, moderate F33.1 and Personality disorder in adult F60.9 [facility] [address] [facility] [id number] [address] [place] [phone] Sep, Acquired hypothyroidism E03. 9 ; Hypercholesterolemia E78.0 ; Generalized anxiety disorder F41.1 and Drug-induced erectile dysfunction N52.2 [facility] [address] [facility] [id number] [address] [place] [phone] Sep, [facility] [address] [facility] [id number] [address] [place] [phone] Sep, Acquired hypothyroidism E03. 9 ; Hypercholesterolemia E78.0 ; Generalized anxiety disorder F41.1 and Drug-induced erectile dysfunction N52.2 [facility] [address] [facility] [id number] [address] [place] [phone] Sep, Generalized anxiety disorder F41.1 ; Major depressive disorder, recurrent, moderate F33.1 and Personality disorder in adult F60.9 [facility] [address] [id number] [address] [place] [address] [id number] Aug, Dental examination Z01.20 [facility] [address] [id number] [address] [place] [address] [id number] Aug, Dental caries K02.9 [facility] [address] [facility] [id number] [address] [place] [phone] Aug, [facility] [address] [id number] [address] [place] [address] [id number] 10 Aug, 2017 Dental examination Z01.20 [facility] [address] [facility] [id number] [address] [place] [id number] 20 Jul, 2017 Major depressive disorder, r ecurrent, moderate F33.1 [facility] [address] [place] [id number] [address] [place] [id number] 19 Jul, 2017 Generalized anxiety disorder F41.1 ; Major depressive disorder, recurrent, moderate F33.1 and Personality disorder in adult F60.9 [place] [address] [facility] [id number] [address] [place] [id number] 08 Jul, 2017 Generalized anxiety disorder F41.1 ; Major depressive disorder, recurrent, moderate F33.1 and Personality disorder in adult F60.9 [place] [address] [place] [id number] [address] [place] [phone] Jun, Generalized anxiety disorder F41.1 ; Major depressive disorder, recurrent, moderate F33.1 and Personality disorder in adult F60.9 [place] [address] [place] [id number] [address] [place] [phone] Apr, Generalized anxiety disorder F41.1 ; Major depressive disorder, recurrent, moderate F33.1 and Personality disorder in adult F60.9 [place] [address] [place] [id number] [address] [place] [phone] March, Acquired hypothyroidism E03. 9 [place] [address] [place] [id number] [address] [place] [phone] March, Acquired hypothyroidism E03. 9 and Left lower quadrant pain R10.32 [place] [address] [facility] [id number] [address] [place] [phone] March, Hypercholesterolemia E78.0 ; Acquired hypothyroidism E03.9 ; Insomnia, unspecified type G47.00 ; Secondary hypertension I15.9 ; Gastroesophageal reflux disease, esophagitis presence not specified K21.9 ; Tingling in extremities R20.2 ; Environmental allergies Z91.09 ; Depression, unspecified depression type F32.9 and Left lower quadrant pain R10.32 [place] [address] [place] [id number] Feb, High risk sexual behavior Z7 2.51 [place] [address] [place] [id number] 13 Feb, 2017 Major depressive disorder, r ecurrent, moderate F33.1 and Generalized anxiety disorder F41.1 [place] [address] [place] [address] Dec, Major depressive disorder, r ecurrent, moderate F33.1 [place] [address] [place] [id number] 17 Dec, 2016 [place] [address] [address] 16 Dec, 2016 Acquired hypothyroidism E03. 9 and High risk sexual behavior Z72.51 [place] [address] [id number] 07 Dec, 2016 Major depressive disorder, r ecurrent, moderate F33.1 and Generalized anxiety disorder F41.1 [place] [address] [place] [id number] 07 Dec, 2016 Acquired hypothyroidism E03. 9 ; Secondary hypertension I15.9 and Acute eczema L30.9 [place] [id number] Nov, Acquired hypothyroidism E03. 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 ; Hypercholesterolemia E78.0 ; Gastroesophageal reflux disease, esophagitis presence not specified K21.9 ; Anxiety F41.9 and Secondary hypertension I15.9 [place] [address] [id number] 06 Oct, 2016 Major depressive disorder, r ecurrent, moderate F33.1 and Generalized anxiety disorder F41.1 [place] [id number] [place] [phone] Aug, [place] [address] [address] Aug, Insomnia, unspecified type G 47.00 ; Acquired hypothyroidism E03.9 ; Hypercholesterolemia E78.0 and Gastroesophageal reflux disease, esophagitis presence not specified K21.9 [place] [address] [address] Jul, [place] [address] [address] Jul, Major depressive disorder, r ecurrent, in partial remission F33.41 and Generalized anxiety disorder F41.1 [place] [address] [id number] Jun, [place] [address] [address] Jun, Cervical pain (neck) M54.2 a nd Cervical neuropathic pain M54.12 [place] [address] [address] 14 Apr, 2016 Insomnia, unspecified type G 47.00 ; Acquired hypothyroidism E03.9 ; Hypercholesterolemia E78.0 ; 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 ; Depression, unspecified depression type F32.9 ; 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 ; Gastroesophageal reflux disease, esophagitis presence not specified K21.9 ; Anxiety F41.9 ; Secondary hypertension I15.9 and Post- nasal drainage R09.82 [place] [address] [address] Apr, [place] [address] [address] March, [place] [address] [address] March, Unspecified hypothyroidism 2 44.9 and HTN (hypertension) 401.9 [place] [address] [address] March, [facility] [address] [address] Dec, [place] [address] [address] Nov, [place] [address] [address] Sep, Generalized anxiety disorder F41.1 and Major depressive disorder, recurrent, in partial remission F33.41 [place] [address] [address] Jun, Unspecified hypothyroidism 2 44.9 ; Sciatica 724.3 ; Major depressive disorder, recurrent episode, in partial or unspecified remission 296.35 ; Combined hyperlipidemia 272.2 ; HTN (hypertension) 401.9 ; Hidrosis 780.8 ; Cat allergies 477.8 and Environmental allergies V15.09 [place] [address] [address] Jun, Major depressive disorder, r ecurrent episode, in partial or unspecified remission 296.35 ; Insomnia, unspecified 780.52 and Generalized anxiety disorder 300.02 [place] [address] [address] May, [place] [address] [address] Apr, [place] [address] [address] Apr, Closed mallet fracture of di stal phalanx of ring finger 816.02 [place] [address] [address] March, Depression, major, recurrent , moderate 296.32 ; Generalized anxiety disorder 300.02 and Borderline personality disorder 301.83 [place] [address] [place] [address] 14 Feb, 2015 [facility] [address] [id number] [address] [place] [address], [place] [address] Feb, [facility] [address] [id number] [address] [place] [address], [place] [address] Jan, [facility] [address] [id number] [address] [place] [address], [place] [address] Jan, [facility] [address] [id number] [address] [place] [address], [place] [address] Jan, [facility] [address] [id number] [address] [place] [address], [place] [id number] Jan, [facility] [address] [id number] [address] [place] [address], [place] [address] Jan, [facility] [address] [id number] [address] [place] [address], [place] [address] Jan, [facility] [address] [id number] [address] [place] [address], [place] [address] Dec, [facility] [address] [id number] [address] [place] [address], [place] [address] Dec, [facility] [address] [id number] [address] [place] [address], [place] [address] Dec, [facility] [address] [id number] [address] [place] [address], [place] [address] Dec, [facility] [address] [id number] [address] [place] [address], [place] [address] Nov, [facility] [address] [id number] [address] [place] [address], [place] [address] Nov, [facility] [address] [id number] [address] [place] [address], [place] [address] Nov, [facility] [address] [id number] [address] [place] [address], [place] [address] Nov, [facility] [address] [id number] [address] [place] [address], [place] [address] Nov, [facility] [address] [id number] [address] [place] [address], [place] [address] Nov, [facility] [address] [id number] [address] [place] [address], [place] [address] Oct, [facility] [address] [id number] [address] [place] [address], [place] [address] Oct, [facility] [address] [id number] [address] [place] [address], [place] [address] Oct, [facility] [address] [id number] [address] [place] [address], [place] [address] Oct, [facility] [address] [id number] [address] [place] [address], [place] [address] Oct, [facility] [address] [id number] [address] [place] [address], [place] [address] Oct, [facility] [address] [id number] [address] [place] [address], [place] [address] Sep, [facility] [address] [id number] [address] [place] [address], [place] [address] Sep, [facility] [address] [id number] [address] [place] [address], [place] [address] Sep, [facility] [address] [id number] [address] [place] [address] Sep, [facility] [address] [id number] [address] [place] [address], [place] [address] Aug, [facility] [address] [id number] [address] [place] [address], [place] [address] Aug, [facility] [address] [id number] [address] [place] [address], [place] [address] Apr, [facility] [address] [id number] [address] [place] [address], [place] [address] Apr, [facility] [address] [id number] [address] [place] [address], [place] [address] Apr, [facility] [address] [id number] [address] [place] [address], [place] [address] Apr, [facility] [address] [id number] [address] [place] [address], [place] [address] Apr, [facility] [address] [id number] [address] [place] [address], [place] [address] Apr, [facility] [address] [id number] [address] [place] [address], [place] [address] March, [facility] [address] [id number] [address] [place] [address], [place] [address] March, [facility] [address] [id number] [address] [place] [address], [place] [address] Dec, [facility] [address] [id number] [address] [place] [address], [place] [address] Dec, [facility] [address] [id number] [address] [place] [address], [place] [address] Sep, [facility] [address] [id number] [address] [place] [address], [place] [address] Sep, [facility] [address] [id number] [address] [place] [address], [place] [address] Aug, [facility] [address] [id number] [address] [place] [address], [place] [address] Aug, [facility] [address] [id number] [address] [place] [address], [place] [address] Aug, [facility] [address] [id number] [address] [place] [address], [place] [address] Aug, [facility] [address] [id number] [address] [place] [address], [place] [address] Aug, [facility] [address] [id number] [address] [place] [address], [place] [address] 09 Aug, 2013 [facility] [address] [id number] [address] [place] [address], [place] [address] 08 Aug, 2013 [facility] [address] [id number] [address] [place] [address], [place] [address] Aug, [facility] [address] [id number] [address] [place] [address], [place] [address] Aug, [facility] [address] [id number] [address] [place] [address], [place] [address] Aug, [facility] [address] [id number] [address] [place] [address], [place] [address] 27 Jul, 2013 [facility] [address] [id number] [address] [place] [address], [place] [address] Jul, [facility] [address] [id number] [address] [place] [address], [place] [address] 05 Jul, 2013 [facility] [address] [id number] [address] [place] [address], [place] [address] Jun, [facility] [address] [id number] [address] [place] [address], [place] [address] May, [facility] [address] [id number] [address] [place] [address], [place] [address] May, [facility] [address] [id number] [address] [place] [address], [place] [address] May, [facility] [address] [id number] [address] [place] [address], [place] [address] Apr, [facility] [address] [id number] [address] [place] [address], [place] [address] March, [facility] [address] [id number] [address] [place] [address], [place] [address] March, [facility] [address] [id number] [address] [place] [address], [place] [address] 30 Feb, 2013 [facility] [address] [id number] [address] [place] [address], [place] [address] 18 Feb, 2013 [facility] [address] [id number] [address] [place] [address], [place] [address] Feb, [facility] [address] [id number] [address] [place] [address], [place] [address] Feb, [facility] [address] [id number] [address] [place] [address], [place] [address] Jan, [facility] [address] [id number] [address] [place] [address], [place] [address] Jan, [facility] [address] [id number] [address] [place] [address], [place] [address] Jan, [facility] [address] [id number] [address] [place] [address], [place] [address] Jan, [facility] [address] [id number] [address] [place] [address], [place] [address] Dec, [facility] [address] [id number] [address] [place] [address], [place] [address] Dec, [facility] [address] [id number] [address] [place] [address], [place] [address] Dec, [facility] [address] [id number] [address] [place] [address], [place] [address] Nov, [facility] [address] [id number] [address] [place] [address], [place] [address] Nov, [facility] [address] [id number] [address] [place] [address], [place] [address] Nov, [facility] [address] [id number] [address] [place] [address], [place] [address] Nov, [facility] [address] [id number] [address] [place] [address], [place] [address] Oct, [facility] [address] [id number] [address] [place] [address], [place] [address] Oct, [facility] [address] [id number] [address] [place] [address], [place] [address] Oct, [facility] [address] [id number] [address] [place] [address], [place] [address] Oct, [facility] [address] [id number] [address] [place] [address], [place] [address] Sep, [facility] [address] [id number] [address] [place] [address], [place] [address] Sep, [facility] [address] [id number] [address] [place] [address], [place] [address] Sep, [facility] [address] [id number] [address] [place] [address], [place] [address] Sep, [facility] [address] [id number] [address] [place] [address], [place] [address] Aug, [facility] [address] [id number] [address] [place] [address], [place] [address] Aug, [facility] [address] [id number] [address] [place] [address], [place] [address] Aug, [facility] [address] [id number] [address] [place] [address], [place] [address] Jul, [facility] [address] [id number] [address] [place] [address], [place] [address] Jun, [facility] [address] [id number] [address] [place] [address], [place] [address] May, [facility] [address] [id number] [address] [place] [address], [place] [id number] May, [facility] [address] [id number] [address] [place] [address], [place] [id number] May, [facility] [address] [id number] [address] [place] [address], [place] [id number] March, [facility] [address] [id number] [address] [place] [address], [place] [id number] March, [facility] [address] [id number] [address] [place] [address], [place] [id number] Feb, [facility] [address] [id number] [address] [place] [address], [place] [id number] Feb, [facility] [address] [id number] [address] [place] [address], [place] [id number] Feb, [facility] [address] [id number] [address] [place] [address], [place] [id number] Feb, [facility] [address] [id number] [address] [place] [address], [place] [id number] Feb, [facility] [address] [id number] [address] [place] [address], [place] [id number] Feb, [facility] [address] [id number] [address] [place] [address], [place] [id number] Feb, [facility] [address] [id number] [address] [place] [address], [place] [id number] Feb, [facility] [address] [id number] [address] [place] [address], [place] [id number] Dec, [facility] [address] [id number] [address] [place] [address], [place] [id number] Nov, [facility] [address] [id number] [address] [place] [address], [place] [id number] Nov, [facility] [address] [id number] [address] [place] [address], [place] [id number] Nov, [facility] [address] [id number] [address] [place] [address], [place] [id number] Nov, [facility] [address] [id number] [address] [place] [address], [place] [id number] Nov, [facility] [address] [id number] [address] [place] [address], [place] [id number] Nov, [facility] [address] [id number] [address] [place] [address], [place] [id number] Oct, [facility] [address] [id number] [address] [place] [address], [place] [id number] Sep, [facility] [address] [id number] [address] [place] [address], [place] [id number] Sep, [facility] [address] [id number] [address] [place] [address], [place] [id number] Sep, [facility] [address] [id number] [address] [place] [address], [place] [id number] Sep, [facility] [address] [id number] [address] [place] [address], [place] [id number] Aug, [facility] [address] [id number] [address] [place] [address], [place] [id number] Aug, [facility] [address] [id number] [address] [place] [address], [place] [id number] Aug, [facility] [facility] [address] [id number] [address] [place] [address], [place] [id number] Aug, [facility] [address] [id number] [address] [place] [address], [place] [id number] Aug, [facility] [address] [id number] [address] [place] [address], [place] [id number] Aug, [facility] [address] [id number] [address] [place] [address], [place] [id number] 17 Aug, 2011 [facility] [address] [id number] [address] [place] [address], [place] [id number] 10 Aug, 2011 [facility] [address] [id number] [address] [place] [address], [place] [id number] 10 Aug, 2011 [facility] [address] [id number] [address] [place] [address], [place] [id number] 12 Jul, 2011 [facility] [address] [facility] [id number] [address] [place] [address] May, IMMUNIZATIONS No Known Immunizations SOCIAL HISTORY Never Assessed REASON FOR VISIT PALS-rexulti PLAN OF CARE VITAL SIGNS MEDICATIONS Medication Instructions Dosage Frequency Start Date End Date Duration S tatus Rexulti 0.5 MG Orally Once a day 1 tablet 24h Jul, 9 0 days Active RESULTS No Results PROCEDURES No [...]
--- OUTSIDE RECORDS SUMMARY | 2020-02-07 09:26 | XMS REPORT ---
Author Author Britton KING [facility] Address Unknown Care Team Providers Care Warp Coiler Name Role Phone SUNNY KING Unavailable PROBLEMS Type Condition ICD9-CM Code [id number] Code Onset Dates Condition S tatus SNOMED Code Problem Gastroesophageal reflux disease, esophagitis pre sence not specified K21.9 Active 642715778 Problem Environmental allergies Z91.09 Active 229281835 Problem Acute eczema L30.9 Active 8843956 02 Problem Acute left-sided low back pain with left-sided sciatica M54.42 Active 095420317 Problem Drug-induced erectile dysfunction N52.2 Active 032024106 Problem Personality disorder in adult F60.9 Active 04225988 Problem Tingling in extremities R20.2 Active 47613550 Problem Major depressive disorder, recurrent, moderate F33 .1 Active 31789336 Problem Generalized anxiety disorder F41.1 A ctive 13828336 Problem 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 Active 020936475 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 40193693 Problem Hypercholesterolemia E78.0 Active 19992813 Problem Anxiety F41.9 Active 96159291 Problem Secondary hypertension I15.9 Active 21716740 Problem Depression, unspecified depression type F32.9 Active 85731963 Problem Acquired hypothyroidism E03.9 Active 134578059 Problem Insomnia, unspecified type G47.00 Act mary [id number] ALLERGIES Substance Reaction Event Type Date Status Amoxicillin vomiting Drug Allergy Aug, Active ENCOUNTERS Encounter Location Date Diagnosis [facility] [address] [facility] [id number] [address] [place] [address] Apr, [facility] [address] [facility] [id number] [address] [place] [address] March, Generalized anxiety disorder F41.1 ; Major depressive disorder, recurrent, moderate F33.1 and Personality disorder in adult F60.9 [facility] [address] [id number] [address] [place] [address] Feb, [facility] [address] [facility] [id number] [address] [place] [address] Dec, Generalized anxiety disorder F41.1 ; Major depressive disorder, recurrent, moderate F33.1 and Personality disorder in adult F60.9 [facility] [address] [id number] [address] [place] [address] 06 Dec, 2017 Acute left-sided low back pa in with left-sided sciatica M54.42 [facility] [address] [id number] [address] [place] [address] Nov, [facility] [address] [facility] [id number] [address] [place] [address] Oct, Generalized anxiety disorder F41.1 ; Major depressive disorder, recurrent, moderate F33.1 and Personality disorder in adult F60.9 [facility] [address] [facility] [id number] [address] [place] [address] Sep, Acquired hypothyroidism E03. 9 ; Hypercholesterolemia E78.0 ; Generalized anxiety disorder F41.1 and Drug-induced erectile dysfunction N52.2 [facility] [address] [facility] [id number] [address] [place] [address] Sep, [facility] [address] [facility] [id number] [address] [place] [address] Sep, Acquired hypothyroidism E03. 9 ; Hypercholesterolemia E78.0 ; Generalized anxiety disorder F41.1 and Drug-induced erectile dysfunction N52.2 [facility] [address] [facility] [id number] [address] [place] [address] Sep, Generalized anxiety disorder F41.1 ; Major depressive disorder, recurrent, moderate F33.1 and Personality disorder in adult F60.9 [facility] [address] [id number] [address] [place] [id number] Aug, Dental examination Z01.20 [facility] [address] [id number] [address] [place] [id number] Aug, Dental caries K02.9 [facility] [address] [id number] [address] [place] [address] Aug, [facility] [address] [id number] [address] [place] [address] [id number] 10 Aug, 2017 Dental examination Z01.20 [facility] [address] [id number] [address] [place] [address] 20 Jul, 2017 Major depressive disorder, r ecurrent, moderate F33.1 [facility] [address] [facility] [id number] [address] [place] [address] 19 Jul, 2017 Generalized anxiety disorder F41.1 ; Major depressive disorder, recurrent, moderate F33.1 and Personality disorder in adult F60.9 [facility] [address] [facility] [id number] [address] [place] [address] 08 Jul, 2017 Generalized anxiety disorder F41.1 ; Major depressive disorder, recurrent, moderate F33.1 and Personality disorder in adult F60.9 [facility] [address] [facility] [id number] [address] [place] [address] Jun, Generalized anxiety disorder F41.1 ; Major depressive disorder, recurrent, moderate F33.1 and Personality disorder in adult F60.9 [facility] [address] [facility] [id number] [address] [place] [address] Apr, Generalized anxiety disorder F41.1 ; Major depressive disorder, recurrent, moderate F33.1 and Personality disorder in adult F60.9 [facility] [address] [facility] [id number] [address] [place] [address] March, Acquired hypothyroidism E03. 9 [facility] [address] [facility] [id number] [address] [place] [address] March, Acquired hypothyroidism E03. 9 and Left lower quadrant pain R10.32 [facility] [address] [facility] [id number] [address] [place] [address] March, Hypercholesterolemia E78.0 ; Acquired hypothyroidism E03.9 ; Insomnia, unspecified type G47.00 ; Secondary hypertension I15.9 ; Gastroesophageal reflux disease, esophagitis presence not specified K21.9 ; Tingling in extremities R20.2 ; Environmental allergies Z91.09 ; Depression, unspecified depression type F32.9 and Left lower quadrant pain R10.32 [place] [place] [address] [place] [id number] 13 Feb, 2017 High risk sexual behavior Z7 2.51 [place] [place] [address] Feb, Major depressive disorder, r ecurrent, moderate F33.1 and Generalized anxiety disorder F41.1 [place] [id number] 22 Dec, 2016 Major depressive disorder, r ecurrent, moderate F33.1 [place] [address] [place] [id number] 17 Dec, 2016 [place] [address] [address] 16 Dec, 2016 Acquired hypothyroidism E03. 9 and High risk sexual behavior Z72.51 [place] [address] [place] [id number] 07 Dec, 2016 Major depressive disorder, r ecurrent, moderate F33.1 and Generalized anxiety disorder F41.1 [place] [id number] 07 Dec, 2016 Acquired hypothyroidism E03. 9 ; Secondary hypertension I15.9 and Acute eczema L30.9 [place] [address] [place] [id number] Nov, Acquired hypothyroidism E03. 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 ; Hypercholesterolemia E78.0 ; Gastroesophageal reflux disease, esophagitis presence not specified K21.9 ; Anxiety F41.9 and Secondary hypertension I15.9 [place] [place] [address] [place] [id number] [place] [address] Oct, Major depressive disorder, r ecurrent, moderate F33.1 and Generalized anxiety disorder F41.1 [place] [address] [place] [id number] [address] [place] [address] Aug, [place] [address] [place] [id number] [place] [address] Aug, Insomnia, unspecified type G 47.00 ; Acquired hypothyroidism E03.9 ; Hypercholesterolemia E78.0 and Gastroesophageal reflux disease, esophagitis presence not specified K21.9 [place] [address] [address] Jul, [facility] [address] [place] [id number] [place] [address] Jul, Major depressive disorder, r ecurrent, in partial remission F33.41 and Generalized anxiety disorder F41.1 [place] [address] [place] [id number] [place] [address] Jun, [address] [address] Jun, Cervical pain (neck) M54.2 a nd Cervical neuropathic pain M54.12 [place] [address] [place] [id number] [place] [address] Apr, Insomnia, unspecified type G 47.00 ; Acquired hypothyroidism E03.9 ; Hypercholesterolemia E78.0 ; 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 ; Depression, unspecified depression type F32.9 ; 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 ; Gastroesophageal reflux disease, esophagitis presence not specified K21.9 ; Anxiety F41.9 ; Secondary hypertension I15.9 and Post- nasal drainage R09.82 [place] [address] [place] [id number] [address] [place] [address] Apr, [place] [address] [address] March, [facility] [address] [address] March, Unspecified hypothyroidism 2 44.9 and HTN (hypertension) 401.9 [facility] [address] [place] [id number] [address] [place] [address] March, [facility] [address] [address] Dec, [facility] [address] [address] Nov, [place] [address] [address] Sep, Generalized anxiety disorder F41.1 and Major depressive disorder, recurrent, in partial remission F33.41 [place] [address] [address] Jun, Unspecified hypothyroidism 2 44.9 ; Sciatica 724.3 ; Major depressive disorder, recurrent episode, in partial or unspecified remission 296.35 ; Combined hyperlipidemia 272.2 ; HTN (hypertension) 401.9 ; Hidrosis 780.8 ; Cat allergies 477.8 and Environmental allergies V15.09 [place] [address] [place] [id number] [address] [place] [address] Jun, Major depressive disorder, r ecurrent episode, in partial or unspecified remission 296.35 ; Insomnia, unspecified 780.52 and Generalized anxiety disorder 300.02 [facility] [address] [place] [id number] [address] [place] [address] May, [place] [address] [address] Apr, [place] [address] [address] Apr, Closed mallet fracture of di stal phalanx of ring finger 816.02 [place] [address] [place] [address] March, Depression, major, recurrent , moderate 296.32 ; Generalized anxiety disorder 300.02 and Borderline personality disorder 301.83 [facility] [address] [id number] [address] [place] [address] Feb, [facility] [address] [facility] [id number] [address] [place] [address] Feb, [facility] [address] [id number] [address] [place] [address] Jan, [facility] [address] [id number] [address] [place] [address] Jan, [facility] [address] [id number] [address] [place] [address] Jan, [facility] [address] [id number] [address] [place] [address] Jan, [facility] [address] [id number] [address] [place] [address] Jan, [facility] [address] [id number] [address] [place] [address] Jan, [facility] [address] [id number] [address] [place] [address] Dec, [facility] [address] [id number] [address] [place] [address] Dec, [facility] [address] [id number] [address] [place] [address] Dec, [facility] [address] [id number] [address] [place] [address] Dec, [facility] [address] [facility] [id number] [address] [place] [address] Nov, [facility] [address] [id number] [address] [place] [address] Nov, [facility] [place] [facility] [address] [id number] [address] [place] [address], [place] [address] Nov, [facility] [address] [id number] [address] [place] [address], [place] [address] Nov, [facility] [place] [facility] [address] [id number] [address] [place] [address], [place] [address] Nov, [facility] [place] [facility] [address] [id number] [address] [place] [address], [place] [address] Nov, [facility] [place] [facility] [address] [id number] [address] [place] [address], [place] [address] Oct, [facility] [place] [facility] [address] [id number] [address] [place] [address], [place] [address] Oct, [facility] [place] [facility] [address] [id number] [address] [place] [address], [place] [address] Oct, [facility] [place] [facility] [address] [id number] [address] [place] [address], [place] [address] Oct, [facility] [address] [id number] [address] [place] [address], [place] [address] Oct, [facility] [place] [facility] [address] [id number] [address] [place] [address], [place] [address] Oct, [facility] [address] [id number] [address] [place] [address], [place] [address] Sep, [facility] [place] [facility] [address] [id number] [address] [place] [address], [place] [address] Sep, [facility] [place] [facility] [address] [id number] [address] [place] [address], [place] [address] Sep, [facility] [place] [facility] [address] [id number] [address] [place] [address], [place] [address] Sep, [facility] [place] [facility] [address] [id number] [address] [place] [address], [place] [address] Aug, [facility] [place] [facility] [address] [id number] [address] [place] [address] [address] Aug, [facility] [address] [id number] [address] [place] [address], [place] [address] Apr, [facility] [place] [facility] [address] [id number] [address] [place] [address], [place] [address] Apr, [facility] [address] [id number] [address] [place] [address], [place] [address] 17 Apr, 2014 [facility] [place] [facility] [address] [id number] [address] [place] [address], [place] [address] 17 Apr, 2014 [facility] [address] [id number] [address] [place] [address], [place] [address] Apr, [facility] [address] [id number] [address] [place] [address], [place] [address] Apr, [facility] [address] [id number] [address] [place] [address], [place] [address] March, [facility] [place] [facility] [address] [id number] [address] [place] [address], [place] [address] March, [facility] [address] [id number] [address] [place] [address], [place] [address] Dec, [facility] [place] [facility] [address] [id number] [address] [place] [address], [place] [address] Dec, [facility] [address] [id number] [address] [place] [address], [place] [address] Sep, [facility] [place] [facility] [address] [id number] [address] [place] [address], [place] [address] Sep, [facility] [place] [facility] [address] [id number] [address] [place] [address], [place] [address] Aug, [facility] [place] [facility] [address] [id number] [address] [place] [address], [place] [address] Aug, [facility] [place] [facility] [address] [id number] [address] [place] [address], [place] [address] Aug, [facility] [place] [facility] [address] [id number] [address] [place] [address], [place] [address] Aug, [facility] [address] [id number] [address] [place] [address], [place] [address] Aug, [facility] [address] [id number] [address] [place] [address], [place] [address] Aug, [facility] [address] [id number] [address] [place] [address], [place] [address] Aug, [facility] [address] [id number] [address] [place] [address], [place] [address] Aug, [facility] [address] [id number] [address] [place] [address], [place] [address] Aug, [facility] [address] [id number] [address] [place] [address], [place] [address] Aug, [facility] [address] [id number] [address] [place] [address], [place] [address] Jul, [facility] [address] [id number] [address] [place] [address], [place] [address] Jul, [facility] [address] [id number] [address] [place] [address], [place] [address] 05 Jul, 2013 [facility] [address] [id number] [address] [place] [address], [place] [address] Jun, [facility] [address] [id number] [address] [place] [address], [place] [address] May, [facility] [address] [id number] [address] [place] [address], [place] [address] May, [facility] [address] [id number] [address] [place] [address], [place] [address] May, [facility] [address] [id number] [address] [place] [address], [place] [address] Apr, [facility] [address] [id number] [address] [place] [address], [place] [address] March, [facility] [address] [id number] [address] [place] [address], [place] [address] March, [facility] [address] [id number] [address] [place] [address], [place] [address] Feb, [facility] [address] [id number] [address] [place] [address], [place] [address] Feb, [facility] [address] [id number] [address] [place] [address], [place] [address] Feb, [facility] [address] [id number] [address] [place] [address], [place] [address] Feb, [facility] [address] [id number] [address] [place] [address], [place] [address] Jan, [facility] [address] [id number] [address] [place] [address], [place] [address] Jan, [facility] [address] [id number] [address] [place] [address], [place] [address] Jan, [facility] [address] [id number] [address] [place] [address], [place] [address] Jan, [facility] [address] [id number] [address] [place] [address], [place] [address] Dec, [facility] [address] [id number] [address] [place] [address], [place] [address] Dec, [facility] [address] [id number] [address] [place] [address], [place] [address] Dec, [facility] [address] [id number] [address] [place] [address], [place] [address] Nov, [facility] [address] [id number] [address] [place] [address], [place] [address] Nov, [facility] [address] [id number] [address] [place] [address], [place] [address] Nov, [facility] [address] [id number] [address] [place] [address] [place] [address] Nov, [facility] [address] [id number] [address] [place] [address], [place] [address] Oct, [facility] [address] [id number] [address] [place] [address], [place] [address] Oct, [facility] [address] [id number] [address] [place] [address], [place] [address] Oct, [facility] [address] [id number] [address] [place] [address], [place] [address] Oct, [facility] [address] [id number] [address] [place] [address], [place] [address] Sep, [facility] [address] [id number] [address] [place] [address], [place] [address] Sep, [facility] [address] [id number] [address] [place] [address], [place] [address] Sep, [facility] [address] [id number] [address] [place] [address], [place] [address] Sep, [facility] [address] [id number] [address] [place] [address], [place] [address] Aug, [facility] [address] [id number] [address] [place] [address], [place] [address] Aug, [facility] [address] [id number] [address] [place] [address], [place] [address] Aug, [facility] [address] [id number] [address] [place] [address], [place] [address] Jul, [facility] [address] [id number] [address] [place] [address], [place] [address] Jun, [facility] [address] [id number] [address] [place] [address], [place] [address] May, [facility] [address] [id number] [address] [place] [address], [place] [address] May, [facility] [address] [id number] [address] [place] [address], [place] [address] May, [facility] [address] [id number] [address] [place] [address], [place] [address] March, [facility] [address] [id number] [address] [place] [address], [place] [address] March, [facility] [address] [id number] [address] [place] [address], [place] [address] Feb, [facility] [address] [id number] [address] [place] [address], [place] [address] Feb, [facility] [address] [id number] [address] [place] [address], [place] [address] Feb, [facility] [address] [id number] [address] [place] [address], [place] [address] Feb, [facility] [address] [id number] [address] [place] [address], [place] [address] Feb, [facility] [address] [id number] [address] [place] [address], [place] [address] Feb, [facility] [address] [id number] [address] [place] [address], [place] [address] Feb, [facility] [address] [id number] [address] [place] [address], [place] [address] Feb, [facility] [address] [id number] [address] [place] [address], [place] [address] Dec, [facility] [address] [id number] [address] [place] [address], [place] [address] Nov, [facility] [address] [id number] [address] [place] [address], [place] [address] Nov, [facility] [address] [id number] [address] [place] [address], [place] [address] Nov, [facility] [address] [id number] [address] [place] [address], [place] [address] 13 Nov, 2011 [facility] [address] [id number] [address] [place] [address], [place] [address] 13 Nov, 2011 [facility] [address] [id number] [address] [place] [address], [place] [address] 12 Nov, 2011 [facility] [address] [id number] [address] [place] [address], [place] [address] Oct, [facility] [address] [id number] [address] [place] [address], [place] [address] Sep, [facility] [address] [id number] [address] [place] [address], [place] [address] Sep, [facility] [address] [id number] [address] [place] [address], [place] [address] Sep, [facility] [address] [id number] [address] [place] [address], [place] [address] Sep, [facility] [address] [id number] [address] [place] [address], [place] [address] Aug, [facility] [address] [id number] [address] [place] [address], [place] [id number] 24 Aug, 2011 [facility] [address] [id number] [address] [place] [address], [place] [id number] Aug, [facility] [address] [id number] [address] [place] [phone] Aug, [facility] [address] [id number] [address] [place] [id number] 20 Aug, 2011 [facility] [address] [id number] [address] [place] [address], [place] [id number] Aug, [facility] [address] [id number] [address] [place] [address], [place] [address] 17 Aug, 2011 [facility] [address] [id number] [address] [place] [phone] 10 Aug, 2011 [facility] [address] [id number] [address] [place] [phone] 10 Aug, 2011 [facility] [address] [facility] [id number] [address] [place] [phone] Jul, [facility] [address] [facility] [id number] [address] [place] [phone] May, IMMUNIZATIONS No Known Immunizations SOCIAL HISTORY Never Assessed REASON FOR VISIT donald PLAN OF CARE Activity Details Follow Up prn Reason:TE once radiograp hs are received from [facility] and reviewed. VITAL SIGNS Height 68 in 2017-09-20 Blood pressure systolic 128 mmHg 2017-09-20 Blood pressure diastolic 93 mmHg 2017-09-20 MEDICATIONS Medication Instructions Dosage Frequency Start Date End Date Duration S tatus Aluminum Chloride 20 % 1 time per dayat night May, 12 Active Lipitor 10 mg Orally Once a day 1 tablet 24h 24 Jan, 2015 Active Topiramate 100 MG Orally Once a day 1 tablet 24h Active Levothyroxine Sodium 125 MCG TAKE ONE TA BLET BY MOUTH ONCE DAILY IN THE MORNING ON AN EMPTY STOMACH 30 Active Lisinopril 20 mg Orally Once a day 1 tablet 24h 30 Active Atorvastatin Calcium 10 MG TAKE ONE TABLET BY MOUTH ONCE DAILY 30 Active Rexulti 0.5 MG Orally Once a day 1 tablet 24h Jul, 9 0 days Active Cymbalta 30 MG Orally Once a day 3 capsules 24h 30 d ay(s) Active RESULTS No Results PROCEDURES Procedure Date Ordered Result Body Site LTD ORAL EVALUATION - PROBLEM FOCUS Sep 20, 2017 INTRAORL-PERIAPICAL 1 FILM [id number] Sep 20, 2017 PANORAMIC FILM SEE ALSO CODE [id number] Sep 20, 2017 INSTRUCTIONS MEDICATIONS ADMINISTERED No Known Medications MEDICAL [...]
--- OUTSIDE RECORDS SUMMARY | 2020-02-07 09:26 | XMS REPORT ---
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 Name Role Phone BRIDGETTE, XAVIER Unavailable PROBLEMS Type Condition ICD9-CM Code [id number] Code Onset Dates Condition S tatus SNOMED Code Problem Acute eczema L30.9 Active 8015751 02 Problem Tingling in extremities R20.2 Active 86437311 Problem Environmental allergies Z91.09 Active 580805574 Problem Primary insomnia F51.01 Active 397 2004 Problem Acute left-sided low back pain with left-sided sciatica M54.42 Active 218324055 Problem Generalized anxiety disorder F41.1 A ctive 13840286 Problem Personality disorder in adult F60.9 Active 28239538 Problem Drug-induced erectile dysfunction N52.2 Active 799049440 Problem Major depressive disorder, recurrent, moderate F33 .1 Active 54814084 Problem Anxiety F41.9 Active 38639565 Problem Acquired hypothyroidism E03.9 Active 778714366 Problem Hypercholesterolemia E78.0 Active 12122372 Problem Secondary hypertension I15.9 Active 04423940 Problem Depression, unspecified depression type F32.9 Active 32634184 Problem 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 Active 965520406 Problem Insomnia, unspecified type G47.00 Act mary 811807978 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 18384304 Problem Gastroesophageal reflux disease, esophagitis pre sence not specified K21.9 Active 537583281 ALLERGIES Substance Reaction Event Type Date Status Amoxicillin vomiting Drug Allergy Oct, Active ENCOUNTERS Encounter Location Date Diagnosis [facility] [address] [facility] [id number] [address] [place] [address] Jun, [facility] [address] [facility] [id number] [address] [place] [address] Apr, Generalized anxiety disorder F41.1 ; Major depressive disorder, recurrent, moderate F33.1 ; Primary insomnia F51.01 and Personality disorder in adult F60.9 [facility] [address] [facility] [id number] [address] [place] [phone] March, Generalized anxiety disorder F41.1 ; Major depressive disorder, recurrent, moderate F33.1 and Personality disorder in adult F60.9 [facility] [address] [facility] [id number] [address] [place] [phone] Feb, [facility] [address] [facility] [id number] [address] [place] [phone] Dec, Generalized anxiety disorder F41.1 ; Major depressive disorder, recurrent, moderate F33.1 and Personality disorder in adult F60.9 [facility] [address] [facility] [id number] [address] [place] [phone] Dec, Acute left-sided low back pa in with left-sided sciatica M54.42 [facility] [address] [facility] [id number] [address] [place] [address] Nov, [facility] [address] [facility] [id number] [address] [place] [address] Oct, Generalized anxiety disorder F41.1 ; Major depressive disorder, recurrent, moderate F33.1 and Personality disorder in adult F60.9 [facility] [address] [facility] [id number] [address] [place] [address] Sep, Acquired hypothyroidism E03. 9 ; Hypercholesterolemia E78.0 ; Generalized anxiety disorder F41.1 and Drug-induced erectile dysfunction N52.2 [facility] [address] [facility] [id number] [address] [place] [address] Sep, [facility] [address] [facility] [id number] [address] [place] [address] Sep, Acquired hypothyroidism E03. 9 ; Hypercholesterolemia E78.0 ; Generalized anxiety disorder F41.1 and Drug-induced erectile dysfunction N52.2 [facility] [address] [facility] [id number] [address] [place] [phone] Sep, Generalized anxiety disorder F41.1 ; Major depressive disorder, recurrent, moderate F33.1 and Personality disorder in adult F60.9 [facility] [address] [id number] [address] [place] [id number] Aug, Dental examination Z01.20 [facility] [address] [id number] [address] [place] [address] [id number] Aug, Dental caries K02.9 [facility] [address] [id number] [address] [place] [address] Aug, [facility] [address] [id number] [address] [place] [id number] Aug, Dental examination Z01.20 [facility] [address] [id number] [address] [place] [address] Jul, Major depressive disorder, r ecurrent, moderate F33.1 [facility] [address] [facility] [id number] [address] [place] [address] Jul, Generalized anxiety disorder F41.1 ; Major depressive disorder, recurrent, moderate F33.1 and Personality disorder in adult F60.9 [facility] [address] [facility] [id number] [address] [place] [id number] 08 Jul, 2017 Generalized anxiety disorder F41.1 ; Major depressive disorder, recurrent, moderate F33.1 and Personality disorder in adult F60.9 [facility] [address] [id number] [address] [place] [id number] Jun, Generalized anxiety disorder F41.1 ; Major depressive disorder, recurrent, moderate F33.1 and Personality disorder in adult F60.9 [facility] [address] [facility] [id number] [address] [place] [address] Apr, Generalized anxiety disorder F41.1 ; Major depressive disorder, recurrent, moderate F33.1 and Personality disorder in adult F60.9 [facility] [address] [id number] [address] [place] [address] March, Acquired hypothyroidism E03. 9 [place] [place] [address] [place] [id number] [address] [place] [address] March, Acquired hypothyroidism E03. 9 and Left lower quadrant pain R10.32 [place] [address] [address] March, Hypercholesterolemia E78.0 ; Acquired hypothyroidism E03.9 ; Insomnia, unspecified type G47.00 ; Secondary hypertension I15.9 ; Gastroesophageal reflux disease, esophagitis presence not specified K21.9 ; Tingling in extremities R20.2 ; Environmental allergies Z91.09 ; Depression, unspecified depression type F32.9 and Left lower quadrant pain R10.32 [place] [address] [address] Feb, High risk sexual behavior Z7 2.51 [place] [address] [address] Feb, Major depressive disorder, r ecurrent, moderate F33.1 and Generalized anxiety disorder F41.1 [place] [address] [address] Dec, Major depressive disorder, r ecurrent, moderate F33.1 [place] [address] [address] 17 Dec, 2016 [place] [address] [address] 16 Dec, 2016 Acquired hypothyroidism E03. 9 and High risk sexual behavior Z72.51 [place] [address] [place] [id number] [address] [place] [phone] 07 Dec, 2016 Major depressive disorder, r ecurrent, moderate F33.1 and Generalized anxiety disorder F41.1 [place] [address] [place] [id number] [place] [address] 07 Dec, 2016 Acquired hypothyroidism E03. 9 ; Secondary hypertension I15.9 and Acute eczema L30.9 [place] [address] [address] Nov, Acquired hypothyroidism E03. 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 ; Hypercholesterolemia E78.0 ; Gastroesophageal reflux disease, esophagitis presence not specified K21.9 ; Anxiety F41.9 and Secondary hypertension I15.9 [place] [address] [address] Oct, Major depressive disorder, r ecurrent, moderate F33.1 and Generalized anxiety disorder F41.1 [place] [address] [address] Aug, [place] [address] [address] Aug, Insomnia, unspecified type G 47.00 ; Acquired hypothyroidism E03.9 ; Hypercholesterolemia E78.0 and Gastroesophageal reflux disease, esophagitis presence not specified K21.9 [place] [address] [address] Jul, [place] [address] [address] Jul, Major depressive disorder, r ecurrent, in partial remission F33.41 and Generalized anxiety disorder F41.1 [place] [address] [address] Jun, [place] [address] [address] Jun, Cervical pain (neck) M54.2 a nd Cervical neuropathic pain M54.12 [place] [address] [address] 14 Apr, 2016 Insomnia, unspecified type G 47.00 ; Acquired hypothyroidism E03.9 ; Hypercholesterolemia E78.0 ; 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 ; Depression, unspecified depression type F32.9 ; 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 ; Gastroesophageal reflux disease, esophagitis presence not specified K21.9 ; Anxiety F41.9 ; Secondary hypertension I15.9 and Post- nasal drainage R09.82 [facility] [address] [address] Apr, [facility] [address] [address] March, [facility] [address] [address] March, Unspecified hypothyroidism 2 44.9 and HTN (hypertension) 401.9 [place] [address] [address] March, [place] [address] [address] Dec, [place] [address] [address] Nov, [place] [address] [address] Sep, Generalized anxiety disorder F41.1 and Major depressive disorder, recurrent, in partial remission F33.41 [place] [address] [address] Jun, Unspecified hypothyroidism 2 44.9 ; Sciatica 724.3 ; Major depressive disorder, recurrent episode, in partial or unspecified remission 296.35 ; Combined hyperlipidemia 272.2 ; HTN (hypertension) 401.9 ; Hidrosis 780.8 ; Cat allergies 477.8 and Environmental allergies V15.09 [place] [address] [address] Jun, Major depressive disorder, r ecurrent episode, in partial or unspecified remission 296.35 ; Insomnia, unspecified 780.52 and Generalized anxiety disorder 300.02 [place] [address] [address] May, [facility] [address] [id number] [address] [place] [address] Apr, [facility] [address] [id number] [address] [place] [address] Apr, Closed mallet fracture of di stal phalanx of ring finger 816.02 [facility] [address] [id number] [address] [place] [address] March, Depression, major, recurrent , moderate 296.32 ; Generalized anxiety disorder 300.02 and Borderline personality disorder 301.83 [facility] [address] [id number] [address] [place] [address] Feb, [facility] [address] [id number] [address] [place] [address] Feb, [facility] [address] [id number] [address] [place] [address] Jan, [facility] [address] [id number] [address] [place] [address] Jan, [facility] [address] [id number] [address] [place] [address] Jan, [facility] [address] [id number] [address] [place] [address] Jan, [facility] [address] [id number] [address] [place] [address] Jan, [facility] [address] [id number] [address] [place] [address] Jan, [facility] [address] [id number] [address] [place] [address] Dec, [facility] [address] [id number] [address] [place] [address] Dec, [facility] [address] [id number] [address] [place] [address] Dec, [facility] [address] [id number] [address] [place] [address], [place] [address] Dec, [facility] [address] [id number] [address] [place] [address], [place] [address] Nov, [facility] [address] [id number] [address] [place] [address], [place] [address] Nov, [facility] [address] [id number] [address] [place] [address], [place] [address] Nov, [facility] [address] [id number] [address] [place] [address], [place] [address] Nov, [facility] [address] [id number] [address] [place] [address], [place] [address] Nov, [facility] [address] [id number] [address] [place] [address], [place] [address] Nov, [facility] [address] [id number] [address] [place] [address], [place] [address] Oct, [facility] [address] [id number] [address] [place] [address], [place] [address] Oct, [facility] [address] [id number] [address] [place] [address], [place] [address] Oct, [facility] [address] [id number] [address] [place] [address], [place] [address] Oct, [facility] [address] [id number] [address] [place] [address], [place] [address] Oct, [facility] [address] [id number] [address] [place] [address], [place] [address] Oct, [facility] [address] [id number] [address] [place] [address], [place] [address] Sep, [facility] [address] [id number] [address] [place] [address], [place] [address] Sep, [facility] [address] [id number] [address] [place] [address], [place] [address] Sep, [facility] [address] [id number] [address] [place] [address], [place] [address] Sep, [facility] [address] [id number] [address] [place] [address], [place] [address] Aug, [facility] [address] [id number] [address] [place] [address], [place] [address] Aug, [facility] [address] [id number] [address] [place] [address], [place] [address] Apr, [facility] [address] [id number] [address] [place] [address], [place] [address] Apr, [facility] [address] [id number] [address] [place] [address], [place] [address] Apr, [facility] [address] [id number] [address] [place] [address], [place] [address] Apr, [facility] [address] [id number] [address] [place] [address], [place] [address] Apr, [facility] [address] [id number] [address] [place] [address], [place] [address] Apr, [facility] [address] [id number] [address] [place] [address], [place] [address] March, [facility] [address] [id number] [address] [place] [address], [place] [address] March, [facility] [address] [id number] [address] [place] [address], [place] [address] Dec, [facility] [address] [id number] [address] [place] [address], [place] [address] Dec, [facility] [address] [id number] [address] [place] [address], [place] [address] Sep, [facility] [address] [id number] [address] [place] [address], [place] [address] Sep, [facility] [address] [id number] [address] [place] [address], [place] [address] Aug, 2012 [facility] [address] [id number] [address] [place] [address], [place] [address] Aug, 2012 [facility] [address] [id number] [address] [place] [address], [place] [address] Aug, 2012 [facility] [address] [id number] [address] [place] [address], [place] [address] Aug, 2012 [facility] [address] [id number] [address] [place] [address], [place] [address] Aug, 2012 [facility] [address] [id number] [address] [place] [address], [place] [address] Aug, [facility] [address] [id number] [address] [place] [address], [place] [address] Aug, [facility] [address] [id number] [address] [place] [address], [place] [address] Aug, [facility] [address] [id number] [address] [place] [address], [place] [address] Aug, [facility] [address] [id number] [address] [place] [address], [place] [address] Aug, [facility] [address] [id number] [address] [place] [address], [place] [address] Jul, [facility] [address] [id number] [address] [place] [address], [place] [address] Jul, [facility] [address] [id number] [address] [place] [address], [place] [address] 05 Jul, 2013 [facility] [address] [id number] [address] [place] [address], [place] [address] Jun, [facility] [address] [id number] [address] [place] [address], [place] [address] May, [facility] [address] [id number] [address] [place] [address], [place] [address] May, [facility] [address] [id number] [address] [place] [address], [place] [address] May, [facility] [address] [id number] [address] [place] [address], [place] [address] Apr, [facility] [address] [id number] [address] [place] [address], [place] [address] March, [facility] [address] [id number] [address] [place] [address], [place] [address] March, [facility] [address] [id number] [address] [place] [address], [place] [address] Feb, [facility] [address] [id number] [address] [place] [address], [place] [address] Feb, [facility] [address] [id number] [address] [place] [address], [place] [address] Feb, [facility] [address] [id number] [address] [place] [address], [place] [address] Feb, [facility] [address] [id number] [address] [place] [address], [place] [address] Jan, [facility] [address] [id number] [address] [place] [address], [place] [address] Jan, [facility] [address] [id number] [address] [place] [address], [place] [address] Jan, [facility] [address] [id number] [address] [place] [address], [place] [address] Jan, [facility] [address] [id number] [address] [place] [address], [place] [address] Dec, [facility] [address] [id number] [address] [place] [address], [place] [address] Dec, [facility] [address] [id number] [address] [place] [address], [place] [address] Dec, [facility] [address] [id number] [address] [place] [address] Nov, [facility] [address] [id number] [address] [place] [address], [place] [address] Nov, [facility] [address] [id number] [address] [place] [address], [place] [address] Nov, [facility] [address] [id number] [address] [place] [address], [place] [address] Nov, [facility] [address] [id number] [address] [place] [address], [place] [address] Oct, [facility] [address] [id number] [address] [place] [address], [place] [address] Oct, [facility] [address] [id number] [address] [place] [address], [place] [address] Oct, [facility] [address] [id number] [address] [place] [address], [place] [address] Oct, [facility] [address] [id number] [address] [place] [address], [place] [address] Sep, [facility] [address] [id number] [address] [place] [address], [place] [address] Sep, [facility] [address] [id number] [address] [place] [address], [place] [address] Sep, [facility] [address] [id number] [address] [place] [id number] Sep, [facility] [address] [id number] [address] [place] [id number] Aug, [facility] [address] [id number] [address] [place] [address], [place] [address] Aug, [facility] [address] [id number] [address] [place] [address], [place] [address] Aug, [facility] [address] [id number] [address] [place] [address], [place] [address] Jul, [facility] [address] [id number] [address] [place] [address], [place] [address] Jun, [facility] [address] [id number] [address] [place] [address], [place] [address] May, [facility] [address] [id number] [address] [place] [address], [place] [address] May, [facility] [address] [id number] [address] [place] [address], [place] [address] May, [facility] [address] [id number] [address] [place] [address], [place] [address] March, [facility] [address] [id number] [address] [place] [address], [place] [address] March, [facility] [address] [id number] [address] [place] [address], [place] [address] Feb, [facility] [address] [id number] [address] [place] [address], [place] [address] Feb, [facility] [address] [id number] [address] [place] [address], [place] [address] Feb, [facility] [address] [id number] [address] [place] [address], [place] [address] Feb, [facility] [address] [id number] [address] [place] [address], [place] [address] Feb, [facility] [address] [id number] [address] [place] [address], [place] [address] Feb, [facility] [address] [id number] [address] [place] [address], [place] [address] Feb, [facility] [address] [id number] [address] [place] [address], [place] [address] Feb, [facility] [address] [id number] [address] [place] [address], [place] [address] Dec, [facility] [address] [id number] [address] [place] [address], [place] [address] 2011 [facility] [address] [id number] [address] [place] [address] [id number] 2011 [facility] [address] [id number] [address] [place] [address], [place] [id number] 27 Nov, 2011 [facility] [address] [id number] [address] [place] [address], [place] [id number] 13 Nov, 2011 [facility] [address] [id number] [address] [place] [address], [place] [id number] 13 Nov, 2011 [facility] [address] [id number] [address] [place] [address], [place] [address] Nov, [facility] [address] [id number] [address] [place] [address], [place] [address] Oct, [facility] [address] [id number] [address] [place] [address], [place] [id number] Sep, [facility] [address] [id number] [address] [place] [address], [place] [address] Sep, [facility] [address] [id number] [address] [place] [address], [place] [address] Sep, [facility] [address] [id number] [address] [place] [address], [place] [address] Sep, [facility] [address] [id number] [address] [place] [address], [place] [address] Aug, [facility] [address] [id number] [address] [place] [phone] Aug, [facility] [address] [id number] [address] [place] [address], [place] [address] Aug, [facility] [address] [id number] [address] [place] [address], [place] [address] Aug, [facility] [address] [id number] [address] [place] [address], [place] [address] Aug, [facility] [address] [id number] [address] [place] [phone] Aug, [facility] [address] [facility] [id number] [address] [place] [phone] Aug, [facility] [address] [facility] [id number] [address] [place] [phone] Aug, [facility] [address] [facility] [id number] [address] [place] [phone] Aug, [facility] [address] [facility] [id number] [address] [place] [phone] Jul, [facility] [address] [facility] [id number] [address] [place] [id number] May, IMMUNIZATIONS No Known Immunizations SOCIAL HISTORY Never Assessed REASON FOR VISIT f/u-Ayse Garzon MA PLAN OF CARE Activity Details Follow Up 2 Months Reason: f/u VITAL SIGNS Height 68 in 2017-10-30 Weight 199.3 lbs 2017-10-30 Heart Rate 96 bpm 2017-10-30 Respiratory Rate 20 2017-10-30 BMI 30.30 kg/m2 2017-10-30 Blood pressure systolic 104 mmHg 2017-10-30 Blood pressure diastolic 62 mmHg 2017-10-30 MEDICATIONS Medication Instructions Dosage Frequency Start Date End Date Duration S tatus Levothyroxine Sodium 125 mcg 1 tablet 24h 30 Active Hydrocodone-Acetaminophen 5-325 MG Orally every 6 hrs 1 tablet as need ed 6h Active Cialis 20 mg Orally Once a day 1 tablet 24h Sep, Active Fish Oil 1200 MG Orally Once a day 2 capsule 24h Active Protonix 40 mg Orally Once a day, voucher 1st fill. 1 tablet Active Lipitor 10 mg Orally Once a day 1 tablet 24h 24 Jan, 2015 Active Cymbalta 30 MG Orally Once a day 3 capsules 24h Active Topiramate 100 MG Orally Once a day 1 tablet 24h Active Lisinopril 20 mg Orally Once a day 1 tablet 24h 30 Active Rexulti 0.5 MG Orally Once a day 1 tablet 24h Jul, Active Aluminum Chloride 20 % 1 time per dayat night May, 12 Not-Taking RESULTS No Results PROCEDURES No Known [...]
--- OUTSIDE RECORDS SUMMARY | 2020-02-07 09:27 | XMS REPORT ---
Author Author Britton KING [facility] Address Unknown Care Team Providers Care Hydrogeologist Name Role Phone SUNNY KING Unavailable PROBLEMS Type Condition ICD9-CM Code [id number] Code Onset Dates Condition S tatus SNOMED Code Problem Gastroesophageal reflux disease, esophagitis pre sence not specified K21.9 Active 668519979 Problem Environmental allergies Z91.09 Active 083938236 Problem Acute eczema L30.9 Active 5778347 02 Problem Acute left-sided low back pain with left-sided sciatica M54.42 Active 864270907 Problem Drug-induced erectile dysfunction N52.2 Active 036596294 Problem Personality disorder in adult F60.9 Active 05092527 Problem Tingling in extremities R20.2 Active 49839230 Problem Major depressive disorder, recurrent, moderate F33 .1 Active 46764926 Problem Generalized anxiety disorder F41.1 A ctive 35097934 Problem 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 Active 120456433 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 94567919 Problem Hypercholesterolemia E78.0 Active 64467869 Problem Anxiety F41.9 Active 88826487 Problem Secondary hypertension I15.9 Active 88371908 Problem Depression, unspecified depression type F32.9 Active 73512811 Problem Acquired hypothyroidism E03.9 Active 950554748 Problem Insomnia, unspecified type G47.00 Act mary [id number] ALLERGIES Substance Reaction Event Type Date Status Amoxicillin vomiting Drug Allergy Aug, Active ENCOUNTERS Encounter Location Date Diagnosis [facility] [address] [facility] [id number] [address] [place] [address] Apr, [facility] [address] [facility] [id number] [address] [place] [id number] March, Generalized anxiety disorder F41.1 ; Major depressive disorder, recurrent, moderate F33.1 and Personality disorder in adult F60.9 [facility] [address] [id number] [address] [place] [id number] Feb, [facility] [address] [facility] [id number] [address] [place] [phone] Dec, Generalized anxiety disorder F41.1 ; Major depressive disorder, recurrent, moderate F33.1 and Personality disorder in adult F60.9 [facility] [address] [id number] [address] [place] [id number] 06 Dec, 2017 Acute left-sided low back pa in with left-sided sciatica M54.42 [facility] [address] [id number] [address] [place] [address] Nov, [facility] [address] [facility] [id number] [address] [place] [address] Oct, Generalized anxiety disorder F41.1 ; Major depressive disorder, recurrent, moderate F33.1 and Personality disorder in adult F60.9 [facility] [address] [facility] [id number] [address] [place] [phone] Sep, Acquired hypothyroidism E03. 9 ; Hypercholesterolemia E78.0 ; Generalized anxiety disorder F41.1 and Drug-induced erectile dysfunction N52.2 [facility] [address] [facility] [id number] [address] [place] [address] Sep, [facility] [address] [facility] [id number] [address] [place] [address] Sep, Acquired hypothyroidism E03. 9 ; Hypercholesterolemia E78.0 ; Generalized anxiety disorder F41.1 and Drug-induced erectile dysfunction N52.2 [facility] [address] [facility] [id number] [address] [place] [address] Sep, Generalized anxiety disorder F41.1 ; Major depressive disorder, recurrent, moderate F33.1 and Personality disorder in adult F60.9 [facility] [address] [id number] [address] [place] [address] [id number] Aug, Dental examination Z01.20 [facility] [address] [id number] [address] [place] [id number] Aug, Dental caries K02.9 [facility] [address] [id number] [address] [place] [address] Aug, [facility] [address] [id number] [address] [place] [address] [id number] 10 Aug, 2017 Dental examination Z01.20 [facility] [address] [id number] [address] [place] [id number] 20 Jul, 2017 Major depressive disorder, r ecurrent, moderate F33.1 [facility] [address] [facility] [id number] [address] [place] [id number] 19 Jul, 2017 Generalized anxiety disorder F41.1 ; Major depressive disorder, recurrent, moderate F33.1 and Personality disorder in adult F60.9 [facility] [address] [facility] [id number] [address] [place] [id number] 08 Jul, 2017 Generalized anxiety disorder F41.1 ; Major depressive disorder, recurrent, moderate F33.1 and Personality disorder in adult F60.9 [facility] [address] [facility] [id number] [address] [place] [address] Jun, Generalized anxiety disorder F41.1 ; Major depressive disorder, recurrent, moderate F33.1 and Personality disorder in adult F60.9 [facility] [address] [facility] [id number] [address] [place] [phone] Apr, Generalized anxiety disorder F41.1 ; Major depressive disorder, recurrent, moderate F33.1 and Personality disorder in adult F60.9 [facility] [address] [facility] [id number] [address] [place] [id number] March, Acquired hypothyroidism E03. 9 [facility] [address] [facility] [id number] [address] [place] [address] March, Acquired hypothyroidism E03. 9 and Left lower quadrant pain R10.32 [facility] [address] [facility] [id number] [address] [place] [address] March, Hypercholesterolemia E78.0 ; Acquired hypothyroidism E03.9 ; Insomnia, unspecified type G47.00 ; Secondary hypertension I15.9 ; Gastroesophageal reflux disease, esophagitis presence not specified K21.9 ; Tingling in extremities R20.2 ; Environmental allergies Z91.09 ; Depression, unspecified depression type F32.9 and Left lower quadrant pain R10.32 [place] [address] [place] [id number] 13 Feb, 2017 High risk sexual behavior Z7 2.51 [place] [address] Feb, Major depressive disorder, r ecurrent, moderate F33.1 and Generalized anxiety disorder F41.1 [place] [id number] 22 Dec, 2016 Major depressive disorder, r ecurrent, moderate F33.1 [place] [address] [place] [id number] 17 Dec, 2016 [place] [address] [address] 16 Dec, 2016 Acquired hypothyroidism E03. 9 and High risk sexual behavior Z72.51 [place] [address] [place] [address] 07 Dec, 2016 Major depressive disorder, r ecurrent, moderate F33.1 and Generalized anxiety disorder F41.1 [place] [id number] 07 Dec, 2016 Acquired hypothyroidism E03. 9 ; Secondary hypertension I15.9 and Acute eczema L30.9 [place] [address] [place] [address] Nov, Acquired hypothyroidism E03. 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 ; Hypercholesterolemia E78.0 ; Gastroesophageal reflux disease, esophagitis presence not specified K21.9 ; Anxiety F41.9 and Secondary hypertension I15.9 [place] [address] [place] [id number] [place] [address] Oct, Major depressive disorder, r ecurrent, moderate F33.1 and Generalized anxiety disorder F41.1 [place] [address] [place] [id number] [address] [place] [phone] Aug, [place] [address] [place] [id number] [place] [address] Aug, Insomnia, unspecified type G 47.00 ; Acquired hypothyroidism E03.9 ; Hypercholesterolemia E78.0 and Gastroesophageal reflux disease, esophagitis presence not specified K21.9 [place] [address] [address] Jul, [place] [address] [place] [id number] [place] [phone] Jul, Major depressive disorder, r ecurrent, in partial remission F33.41 and Generalized anxiety disorder F41.1 [place] [address] [place] [id number] [place] [address] Jun, [address] [address] Jun, Cervical pain (neck) M54.2 a nd Cervical neuropathic pain M54.12 [place] [address] [place] [id number] [place] [address] Apr, Insomnia, unspecified type G 47.00 ; Acquired hypothyroidism E03.9 ; Hypercholesterolemia E78.0 ; 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 ; Depression, unspecified depression type F32.9 ; 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 ; Gastroesophageal reflux disease, esophagitis presence not specified K21.9 ; Anxiety F41.9 ; Secondary hypertension I15.9 and Post- nasal drainage R09.82 [place] [address] [place] [id number] [address] [place] [address] Apr, [place] [address] [address] March, [facility] [address] [address] March, Unspecified hypothyroidism 2 44.9 and HTN (hypertension) 401.9 [facility] [address] [place] [id number] [address] [place] [address] March, [facility] [address] [address] Dec, [facility] [address] [address] Nov, [place] [address] [address] Sep, Generalized anxiety disorder F41.1 and Major depressive disorder, recurrent, in partial remission F33.41 [place] [address] [address] Jun, Unspecified hypothyroidism 2 44.9 ; Sciatica 724.3 ; Major depressive disorder, recurrent episode, in partial or unspecified remission 296.35 ; Combined hyperlipidemia 272.2 ; HTN (hypertension) 401.9 ; Hidrosis 780.8 ; Cat allergies 477.8 and Environmental allergies V15.09 [place] [address] [place] [id number] [address] [place] [address] Jun, Major depressive disorder, r ecurrent episode, in partial or unspecified remission 296.35 ; Insomnia, unspecified 780.52 and Generalized anxiety disorder 300.02 [facility] [address] [place] [id number] [address] [place] [address] May, [place] [address] [address] Apr, [place] [address] [address] Apr, Closed mallet fracture of di stal phalanx of ring finger 816.02 [place] [address] [place] [address] March, Depression, major, recurrent , moderate 296.32 ; Generalized anxiety disorder 300.02 and Borderline personality disorder 301.83 [facility] [address] [id number] [address] [place] [address] Feb, [facility] [address] [facility] [id number] [address] [place] [address] Feb, [facility] [address] [id number] [address] [place] [address] Jan, [facility] [address] [id number] [address] [place] [address] Jan, [facility] [address] [id number] [address] [place] [address] Jan, [facility] [address] [id number] [address] [place] [address] Jan, [facility] [address] [id number] [address] [place] [address] Jan, [facility] [address] [id number] [address] [place] [address] Jan, [facility] [address] [id number] [address] [place] [address] Dec, [facility] [address] [id number] [address] [place] [address] Dec, [facility] [address] [id number] [address] [place] [address] Dec, [facility] [address] [id number] [address] [place] [address] Dec, [facility] [address] [facility] [id number] [address] [place] [address] Nov, [facility] [address] [id number] [address] [place] [id number] Nov, [facility] [place] [facility] [address] [id number] [address] [place] [address], [place] [address] Nov, [facility] [address] [id number] [address] [place] [address], [place] [address] Nov, [facility] [place] [facility] [address] [id number] [address] [place] [address], [place] [address] Nov, [facility] [place] [facility] [address] [id number] [address] [place] [address], [place] [address] Nov, [facility] [place] [facility] [address] [id number] [address] [place] [address], [place] [address] Oct, [facility] [place] [facility] [address] [id number] [address] [place] [address], [place] [address] Oct, [facility] [place] [facility] [address] [id number] [address] [place] [address], [place] [address] Oct, [facility] [place] [facility] [address] [id number] [address] [place] [address], [place] [address] Oct, [facility] [address] [id number] [address] [place] [address], [place] [address] Oct, [facility] [place] [facility] [address] [id number] [address] [place] [address], [place] [address] Oct, [facility] [address] [id number] [address] [place] [address], [place] [address] Sep, [facility] [place] [facility] [address] [id number] [address] [place] [address], [place] [address] Sep, [facility] [place] [facility] [address] [id number] [address] [place] [address], [place] [address] Sep, [facility] [place] [facility] [address] [id number] [address] [place] [address], [place] [address] Sep, [facility] [place] [facility] [address] [id number] [address] [place] [address], [place] [address] Aug, [facility] [place] [facility] [address] [id number] [address] [place] [address] [address] Aug, [facility] [address] [id number] [address] [place] [address], [place] [address] Apr, [facility] [place] [facility] [address] [id number] [address] [place] [address], [place] [address] Apr, [facility] [address] [id number] [address] [place] [address], [place] [address] 17 Apr, 2014 [facility] [place] [facility] [address] [id number] [address] [place] [address], [place] [address] 17 Apr, 2014 [facility] [address] [id number] [address] [place] [address], [place] [address] Apr, [facility] [address] [id number] [address] [place] [address], [place] [address] Apr, [facility] [address] [id number] [address] [place] [address], [place] [address] March, [facility] [place] [facility] [address] [id number] [address] [place] [address], [place] [address] March, [facility] [address] [id number] [address] [place] [address], [place] [address] Dec, [facility] [place] [facility] [address] [id number] [address] [place] [address], [place] [address] Dec, [facility] [address] [id number] [address] [place] [address], [place] [address] Sep, [facility] [place] [facility] [address] [id number] [address] [place] [address], [place] [address] Sep, [facility] [place] [facility] [address] [id number] [address] [place] [address], [place] [address] Aug, [facility] [place] [facility] [address] [id number] [address] [place] [address], [place] [address] Aug, [facility] [place] [facility] [address] [id number] [address] [place] [address], [place] [address] Aug, [facility] [place] [facility] [address] [id number] [address] [place] [address], [place] [address] Aug, [facility] [address] [id number] [address] [place] [address], [place] [address] Aug, [facility] [address] [id number] [address] [place] [address], [place] [address] Aug, [facility] [address] [id number] [address] [place] [address], [place] [address] Aug, [facility] [address] [id number] [address] [place] [address], [place] [address] Aug, [facility] [address] [id number] [address] [place] [address], [place] [address] Aug, [facility] [address] [id number] [address] [place] [address], [place] [address] Aug, [facility] [address] [id number] [address] [place] [address], [place] [address] Jul, [facility] [address] [id number] [address] [place] [address], [place] [address] Jul, [facility] [address] [id number] [address] [place] [address], [place] [address] 05 Jul, 2013 [facility] [address] [id number] [address] [place] [address], [place] [address] Jun, [facility] [address] [id number] [address] [place] [address], [place] [address] May, [facility] [address] [id number] [address] [place] [address], [place] [address] May, [facility] [address] [id number] [address] [place] [address], [place] [address] May, [facility] [address] [id number] [address] [place] [address], [place] [address] Apr, [facility] [address] [id number] [address] [place] [address], [place] [address] March, [facility] [address] [id number] [address] [place] [address], [place] [address] March, [facility] [address] [id number] [address] [place] [address], [place] [address] Feb, [facility] [address] [id number] [address] [place] [address], [place] [address] Feb, [facility] [address] [id number] [address] [place] [address], [place] [address] Feb, [facility] [address] [id number] [address] [place] [address], [place] [address] Feb, [facility] [address] [id number] [address] [place] [address], [place] [address] Jan, [facility] [address] [id number] [address] [place] [address], [place] [address] Jan, [facility] [address] [id number] [address] [place] [address], [place] [address] Jan, [facility] [address] [id number] [address] [place] [address], [place] [address] Jan, [facility] [address] [id number] [address] [place] [address], [place] [address] Dec, [facility] [address] [id number] [address] [place] [address], [place] [address] Dec, [facility] [address] [id number] [address] [place] [address], [place] [address] Dec, [facility] [address] [id number] [address] [place] [address], [place] [address] Nov, [facility] [address] [id number] [address] [place] [address], [place] [address] Nov, [facility] [address] [id number] [address] [place] [address], [place] [address] Nov, [facility] [address] [id number] [address] [place] [address] [place] [address] Nov, [facility] [address] [id number] [address] [place] [address], [place] [address] Oct, [facility] [address] [id number] [address] [place] [address], [place] [address] Oct, [facility] [address] [id number] [address] [place] [address], [place] [address] Oct, [facility] [address] [id number] [address] [place] [address], [place] [address] Oct, [facility] [address] [id number] [address] [place] [address], [place] [address] Sep, [facility] [address] [id number] [address] [place] [address], [place] [address] Sep, [facility] [address] [id number] [address] [place] [address], [place] [address] Sep, [facility] [address] [id number] [address] [place] [address], [place] [address] Sep, [facility] [address] [id number] [address] [place] [address], [place] [address] Aug, [facility] [address] [id number] [address] [place] [address], [place] [address] Aug, [facility] [address] [id number] [address] [place] [address], [place] [address] Aug, [facility] [address] [id number] [address] [place] [address], [place] [address] Jul, [facility] [address] [id number] [address] [place] [address], [place] [address] Jun, [facility] [place] [facility] [address] [id number] [address] [place] [address], [place] [address] May, [facility] [address] [id number] [address] [place] [address], [place] [address] May, [facility] [address] [id number] [address] [place] [address], [place] [address] May, [facility] [address] [id number] [address] [place] [address], [place] [address] March, [facility] [address] [id number] [address] [place] [address], [place] [address] March, [facility] [address] [id number] [address] [place] [address], [place] [address] Feb, [facility] [address] [id number] [address] [place] [address], [place] [address] Feb, [facility] [address] [id number] [address] [place] [address], [place] [address] Feb, [facility] [address] [id number] [address] [place] [address], [place] [address] Feb, [facility] [address] [id number] [address] [place] [address], [place] [address] Feb, [facility] [address] [id number] [address] [place] [address], [place] [address] Feb, [facility] [address] [id number] [address] [place] [address], [place] [address] Feb, [facility] [address] [id number] [address] [place] [address], [place] [address] Feb, [facility] [address] [id number] [address] [place] [address], [place] [address] Dec, [facility] [address] [id number] [address] [place] [address], [place] [address] Nov, [facility] [address] [id number] [address] [place] [address], [place] [address] Nov, [facility] [address] [id number] [address] [place] [address], [place] [address] Nov, [facility] [address] [id number] [address] [place] [address], [place] [address] 13 Nov, 2011 [facility] [address] [id number] [address] [place] [address], [place] [address] 13 Nov, 2011 [facility] [address] [id number] [address] [place] [address], [place] [address] 12 Nov, 2011 [facility] [address] [id number] [address] [place] [address], [place] [address] Oct, [facility] [address] [id number] [address] [place] [address], [place] [address] Sep, [facility] [address] [id number] [address] [place] [address], [place] [address] Sep, [facility] [address] [id number] [address] [place] [address], [place] [address] Sep, [facility] [address] [id number] [address] [place] [address], [place] [address] Sep, [facility] [address] [id number] [address] [place] [address], [place] [address] Aug, [facility] [address] [id number] [address] [place] [address], [place] [id number] 24 Aug, 2011 [facility] [address] [id number] [address] [place] [address], [place] [address] Aug, [facility] [address] [id number] [address] [place] [id number] Aug, [facility] [address] [id number] [address] [place] [id number] 20 Aug, 2011 [facility] [address] [id number] [address] [place] [address], [place] [address] Aug, [facility] [address] [id number] [address] [place] [address], [place] [id number] 17 Aug, 2011 [facility] [address] [id number] [address] [place] [id number] 10 Aug, 2011 [facility] [address] [id number] [address] [place] [id number] 10 Aug, 2011 [facility] [address] [facility] [id number] [address] [place] [id number] Jul, [facility] [address] [facility] [id number] [address] [place] [id number] May, IMMUNIZATIONS No Known Immunizations SOCIAL HISTORY Never Assessed REASON FOR VISIT 1 WK TE PLAN OF CARE VITAL SIGNS Height 68 in 2017-09-18 Blood pressure systolic 129 mmHg 2017-09-18 Blood pressure diastolic 99 mmHg 2017-09-18 MEDICATIONS Medication Instructions Dosage Frequency Start Date End Date Duration S tatus Levothyroxine Sodium 125 MCG TAKE ONE TA BLET BY MOUTH ONCE DAILY IN THE MORNING ON AN EMPTY STOMACH 30 Active Atorvastatin Calcium 10 MG TAKE ONE TABLET BY MOUTH ONCE DAILY 30 Active Lisinopril 20 mg Orally Once a day 1 tablet 24h 30 Active Aluminum Chloride 20 % 1 time per dayat night May, 12 Active Lipitor 10 mg Orally Once a day 1 tablet 24h Jan, Active Topiramate 100 MG Orally Once a day 1 tablet 24h Active Cymbalta 30 MG Orally Once a day 3 capsules 24h 30 d ay(s) Active Rexulti 0.5 MG Orally Once a day 1 tablet 24h Jul, 9 0 days Active RESULTS No Results PROCEDURES Procedure Date Ordered Result Body Site EXTRAC ERUPTED TOOTH/EXPOSED ROOT Sep 18, 2017 INSTRUCTIONS MEDICATIONS ADMINISTERED No Known Medications [...]
--- OUTSIDE RECORDS SUMMARY | 2020-02-07 09:27 | XMS REPORT ---
Author Author Britton ANGELES Organization [facility] Address [address] [place] [address] Care Team Providers Care Oyster Harvester Name Role Phone BRIDGETTE, XAVIER Unavailable PROBLEMS Type Condition ICD9-CM Code [id number] Code Onset Dates Condition S tatus SNOMED Code Problem Gastroesophageal reflux disease, esophagitis pre sence not specified K21.9 Active 487003687 Problem Environmental allergies Z91.09 Active 261395193 Problem Acute eczema L30.9 Active 7706172 02 Problem Acute left-sided low back pain with left-sided sciatica M54.42 Active 816086734 Problem Drug-induced erectile dysfunction N52.2 Active 552988089 Problem Personality disorder in adult F60.9 Active 58976590 Problem Tingling in extremities R20.2 Active 18518325 Problem Major depressive disorder, recurrent, moderate F33 .1 Active 62475722 Problem Generalized anxiety disorder F41.1 A ctive 56380515 Problem 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 Active 549774668 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 14715844 Problem Hypercholesterolemia E78.0 Active 53062109 Problem Anxiety F41.9 Active 46017895 Problem Secondary hypertension I15.9 Active 13026079 Problem Depression, unspecified depression type F32.9 Active 77001062 Problem Acquired hypothyroidism E03.9 Active 885316527 Problem Insomnia, unspecified type G47.00 Act mary [id number] ALLERGIES No Known Allergies ENCOUNTERS Encounter Location Date Diagnosis [facility] [address] [facility] [id number] [address] [place] [address] March, [facility] [address] [facility] [id number] [address] [place] [address] Dec, Generalized anxiety disorder F41.1 ; Major depressive disorder, recurrent, moderate F33.1 and Personality disorder in adult F60.9 [facility] [address] [id number] [address] [place] [address] Dec, Acute left-sided low back pa in with left-sided sciatica M54.42 [facility] [address] [id number] [address] [place] [address] Nov, [facility] [address] [id number] [address] [place] [address] Oct, Generalized anxiety disorder F41.1 ; Major depressive disorder, recurrent, moderate F33.1 and Personality disorder in adult F60.9 [facility] [address] [id number] [address] [place] [address] Sep, Acquired hypothyroidism E03. 9 ; Hypercholesterolemia E78.0 ; Generalized anxiety disorder F41.1 and Drug-induced erectile dysfunction N52.2 [facility] [address] [id number] [address] [place] [address] Sep, [facility] [address] [id number] [address] [place] [address] Sep, Acquired hypothyroidism E03. 9 ; Hypercholesterolemia E78.0 ; Generalized anxiety disorder F41.1 and Drug-induced erectile dysfunction N52.2 [facility] [address] [id number] [address] [place] [address] Sep, Generalized anxiety disorder F41.1 ; Major depressive disorder, recurrent, moderate F33.1 and Personality disorder in adult F60.9 [facility] [address] [id number] [address] [place] [id number] Aug, Dental examination Z01.20 [facility] [address] [id number] [address] [place] [id number] Aug, Dental caries K02.9 [facility] [address] [id number] [address] [place] [address] Aug, [facility] [address] [id number] [address] [place] [address] [id number] 10 Oct, 2017 Dental examination Z01.20 [place] [address] [address] 20 Jul, 2017 Major depressive disorder, r ecurrent, moderate F33.1 [place] [address] [address] 19 Jul, 2017 Generalized anxiety disorder F41.1 ; Major depressive disorder, recurrent, moderate F33.1 and Personality disorder in adult F60.9 [place] [address] [address] 08 Jul, 2017 Generalized anxiety disorder F41.1 ; Major depressive disorder, recurrent, moderate F33.1 and Personality disorder in adult F60.9 [place] [address] [address] Jun, Generalized anxiety disorder F41.1 ; Major depressive disorder, recurrent, moderate F33.1 and Personality disorder in adult F60.9 [place] [address] [address] Apr, Generalized anxiety disorder F41.1 ; Major depressive disorder, recurrent, moderate F33.1 and Personality disorder in adult F60.9 [place] [address] [address] March, Acquired hypothyroidism E03. 9 [place] [address] [address] March, Acquired hypothyroidism E03. 9 and Left lower quadrant pain R10.32 [place] [address] [address] March, Hypercholesterolemia E78.0 ; Acquired hypothyroidism E03.9 ; Insomnia, unspecified type G47.00 ; Secondary hypertension I15.9 ; Gastroesophageal reflux disease, esophagitis presence not specified K21.9 ; Tingling in extremities R20.2 ; Environmental allergies Z91.09 ; Depression, unspecified depression type F32.9 and Left lower quadrant pain R10.32 [place] [address] [place] [address] 13 Feb, 2017 High risk sexual behavior Z7 2.51 [place] [address] [place] [id number] 13 Feb, 2017 Major depressive disorder, r ecurrent, moderate F33.1 and Generalized anxiety disorder F41.1 [place] [address] [address] 22 Dec, 2016 Major depressive disorder, r ecurrent, moderate F33.1 [place] [address] [address] 17 Dec, 2016 [place] [address] [place] [id number] 16 Dec, 2016 Acquired hypothyroidism E03. 9 and High risk sexual behavior Z72.51 [place] [address] [address] 07 Dec, 2016 Major depressive disorder, r ecurrent, moderate F33.1 and Generalized anxiety disorder F41.1 [place] [address] [address] 07 Dec, 2016 Acquired hypothyroidism E03. 9 ; Secondary hypertension I15.9 and Acute eczema L30.9 [place] [address] [address] Nov, Acquired hypothyroidism E03. 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 ; Hypercholesterolemia E78.0 ; Gastroesophageal reflux disease, esophagitis presence not specified K21.9 ; Anxiety F41.9 and Secondary hypertension I15.9 [place] [address] [place] [id number] 06 Oct, 2016 Major depressive disorder, r ecurrent, moderate F33.1 and Generalized anxiety disorder F41.1 [place] [address] [address] Aug, [place] [address] [address] Aug, Insomnia, unspecified type G 47.00 ; Acquired hypothyroidism E03.9 ; Hypercholesterolemia E78.0 and Gastroesophageal reflux disease, esophagitis presence not specified K21.9 [place] [address] [address] Jul, [place] [address] [address] Jul, Major depressive disorder, r ecurrent, in partial remission F33.41 and Generalized anxiety disorder F41.[address] [address] Jun, [place] [address] [address] Jun, Cervical pain (neck) M54.2 a nd Cervical neuropathic pain M54.12 [place] [address] [address] Apr, Insomnia, unspecified type G 47.00 ; Acquired hypothyroidism E03.9 ; Hypercholesterolemia E78.0 ; 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 ; Depression, unspecified depression type F32.9 ; 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 ; Gastroesophageal reflux disease, esophagitis presence not specified K21.9 ; Anxiety F41.9 ; Secondary hypertension I15.9 and Post- nasal drainage R09.82 [place] [address] [address] Apr, [place] [address] [address] March, [address] [address] March, Unspecified hypothyroidism 2 44.9 and HTN (hypertension) 401.[address] [address] March, [facility] [address] [address] Dec, [facility] [address] [address] Nov, [place] [address] [address] Sep, Generalized anxiety disorder F41.1 and Major depressive disorder, recurrent, in partial remission F33.41 [place] [address] [address] Jun, Unspecified hypothyroidism 2 44.9 ; Sciatica 724.3 ; Major depressive disorder, recurrent episode, in partial or unspecified remission 296.35 ; Combined hyperlipidemia 272.2 ; HTN (hypertension) 401.9 ; Hidrosis 780.8 ; Cat allergies 477.8 and Environmental allergies V15.09 [place] [address] [address] Jun, Major depressive disorder, r ecurrent episode, in partial or unspecified remission 296.35 ; Insomnia, unspecified 780.52 and Generalized anxiety disorder 300.02 [place] [address] [address] May, [place] [address] [address] Apr, [place] [address] [address] Apr, Closed mallet fracture of di stal phalanx of ring finger 816.02 [place] [address] [address] March, Depression, major, recurrent , moderate 296.32 ; Generalized anxiety disorder 300.02 and Borderline personality disorder 301.83 [place] [address] [address] Feb, [place] [address] [place] [address] Feb, [facility] [address] [id number] [address] [place] [address], [place] [address] Jan, [facility] [address] [id number] [address] [place] [address], [place] [address] Jan, [facility] [address] [id number] [address] [place] [address], [place] [address] Jan, [facility] [address] [id number] [address] [place] [address], [place] [address] Jan, [facility] [address] [id number] [address] [place] [address], [place] [address] Jan, [facility] [address] [id number] [address] [place] [address], [place] [address] Jan, [facility] [address] [id number] [address] [place] [address], [place] [address] Dec, [facility] [address] [id number] [address] [place] [address], [place] [address] Dec, [facility] [address] [id number] [address] [place] [address], [place] [address] Dec, [facility] [address] [id number] [address] [place] [address], [place] [address] Dec, [facility] [address] [id number] [address] [place] [address], [place] [address] Nov, [facility] [address] [id number] [address] [place] [address], [place] [address] Nov, [facility] [address] [id number] [address] [place] [address], [place] [address] Nov, [facility] [address] [id number] [address] [place] [address], [place] [address] Nov, [facility] [address] [id number] [address] [place] [address], [place] [address] Nov, [facility] [address] [id number] [address] [place] [address], [place] [address] Nov, [facility] [place] [facility] [address] [id number] [address] [place] [address], [place] [address] Oct, [facility] [place] [facility] [address] [id number] [address] [place] [address], [place] [address] Oct, [facility] [place] [facility] [address] [id number] [address] [place] [address], [place] [address] Oct, [facility] [address] [id number] [address] [place] [address], [place] [address] Oct, [facility] [place] [facility] [address] [id number] [address] [place] [address], [place] [address] Oct, [facility] [place] [facility] [address] [id number] [address] [place] [address], [place] [address] Oct, [facility] [place] [address] [id number] [address] [place] [address], [place] [address] Sep, [facility] [place] [facility] [address] [id number] [address] [place] [address], [place] [address] Sep, [facility] [place] [facility] [address] [id number] [address] [place] [address], [place] [address] Sep, [facility] [address] [id number] [address] [place] [address], [place] [address] Sep, [facility] [place] [facility] [address] [id number] [address] [place] [address], [place] [address] Aug, [facility] [place] [facility] [address] [id number] [address] [place] [address], [place] [address] Aug, [facility] [facility] [address] [id number] [address] [place] [address], [place] [address] Apr, [facility] [address] [id number] [address] [place] [address], [place] [address] Apr, [facility] [place] [address] [id number] [address] [place] [address] Apr, [facility] [address] [id number] [address] [place] [address], [place] [address] Apr, [facility] [address] [id number] [address] [place] [address], [place] [address] Apr, [facility] [address] [id number] [address] [place] [address], [place] [address] Apr, [facility] [address] [id number] [address] [place] [address], [place] [address] March, [facility] [address] [id number] [address] [place] [address], [place] [address] March, [facility] [address] [id number] [address] [place] [address], [place] [address] Dec, [facility] [address] [id number] [address] [place] [address], [place] [address] Dec, [facility] [address] [id number] [address] [place] [address], [place] [address] Sep, [facility] [address] [id number] [address] [place] [address], [place] [address] Sep, [facility] [address] [id number] [address] [place] [address], [place] [address] Aug, [facility] [address] [id number] [address] [place] [address], [place] [address] Aug, [facility] [place] [facility] [address] [id number] [address] [place] [address], [place] [address] Aug, [facility] [address] [id number] [address] [place] [address], [place] [address] Aug, [facility] [place] [facility] [address] [id number] [address] [place] [address], [place] [address] Aug, [facility] [address] [id number] [address] [place] [address] Aug, [facility] [place] [address] [id number] [address] [place] [address], [place] [address] 08 Aug, 2013 [facility] [address] [id number] [address] [place] [address], [place] [address] Aug, [facility] [address] [id number] [address] [place] [address], [place] [address] Aug, [facility] [address] [id number] [address] [place] [address], [place] [address] Aug, [facility] [address] [id number] [address] [place] [address], [place] [address] Jul, [facility] [address] [id number] [address] [place] [address], [place] [address] Jul, [facility] [address] [id number] [address] [place] [address], [place] [address] 05 Jul, 2013 [facility] [address] [id number] [address] [place] [address], [place] [address] Jun, [facility] [address] [id number] [address] [place] [address], [place] [address] May, [facility] [address] [id number] [address] [place] [address], [place] [address] May, [facility] [address] [id number] [address] [place] [address], [place] [address] May, [facility] [address] [id number] [address] [place] [address], [place] [address] Apr, [facility] [address] [id number] [address] [place] [address], [place] [address] March, [facility] [address] [id number] [address] [place] [address], [place] [address] March, [facility] [address] [id number] [address] [place] [address], [place] [address] Feb, [facility] [address] [id number] [address] [place] [address], [place] [address] 18 Feb, 2013 [facility] [address] [id number] [address] [place] [address], [place] [address] Feb, [facility] [address] [id number] [address] [place] [address], [place] [address] Feb, [facility] [address] [id number] [address] [place] [address], [place] [address] Jan, [facility] [address] [id number] [address] [place] [address], [place] [address] Jan, [facility] [address] [id number] [address] [place] [address], [place] [address] Jan, [facility] [address] [id number] [address] [place] [address], [place] [address] Jan, [facility] [address] [id number] [address] [place] [address], [place] [address] Dec, [facility] [address] [id number] [address] [place] [address], [place] [address] Dec, [facility] [address] [id number] [address] [place] [address], [place] [address] Dec, [facility] [address] [id number] [address] [place] [address], [place] [address] Nov, [facility] [address] [id number] [address] [place] [address], [place] [address] Nov, [facility] [address] [id number] [address] [place] [address], [place] [address] Nov, [facility] [address] [id number] [address] [place] [address], [place] [address] Nov, [facility] [address] [id number] [address] [place] [address], [place] [address] Oct, [facility] [address] [id number] [address] [place] [address], [place] [address] Oct, [facility] [address] [id number] [address] [place] [address], [place] [address] Oct, [facility] [address] [id number] [address] [place] [address], [place] [address] Oct, [facility] [address] [id number] [address] [place] [address], [place] [address] Sep, [facility] [address] [id number] [address] [place] [address], [place] [address] Sep, [facility] [address] [id number] [address] [place] [address], [place] [address] Sep, [facility] [address] [id number] [address] [place] [address], [place] [address] Sep, [facility] [address] [id number] [address] [place] [address], [place] [address] Aug, [facility] [address] [id number] [address] [place] [address], [place] [address] Aug, [facility] [address] [id number] [address] [place] [address], [place] [address] Aug, [facility] [address] [id number] [address] [place] [address], [place] [address] Jul, [facility] [address] [id number] [address] [place] [address], [place] [address] Jun, [facility] [address] [id number] [address] [place] [address], [place] [address] May, [facility] [address] [id number] [address] [place] [address], [place] [address] May, [facility] [address] [id number] [address] [place] [address], [place] [address] May, [facility] [address] [id number] [address] [place] [address], [place] [address] March, [facility] [address] [id number] [address] [place] [address], [place] [address] March, [facility] [address] [id number] [address] [place] [address], [place] [address] Feb, [facility] [address] [id number] [address] [place] [address], [place] [address] Feb, [facility] [address] [id number] [address] [place] [address], [place] [address] Feb, [facility] [address] [id number] [address] [place] [address], [place] [address] Feb, [facility] [address] [id number] [address] [place] [address], [place] [address] Feb, [facility] [address] [id number] [address] [place] [address], [place] [address] Feb, [facility] [address] [id number] [address] [place] [address], [place] [address] Feb, [facility] [address] [id number] [address] [place] [address], [place] [address] Feb, [facility] [address] [id number] [address] [place] [address], [place] [address] Dec, [facility] [address] [id number] [address] [place] [address], [place] [address] Nov, [facility] [address] [id number] [address] [place] [address], [place] [address] Nov, [facility] [address] [id number] [address] [place] [address], [place] [address] Nov, [facility] [address] [id number] [address] [place] [address], [place] [address] Nov, [facility] [address] [id number] [address] [place] [address], [place] [address] Nov, [facility] [address] [id number] [address] [place] [address], [place] [address] Nov, [facility] [address] [id number] [address] [place] [address], [place] [address] 14 Oct, 2011 [facility] [address] [id number] [address] [place] [address], [place] [address] Sep, [facility] [address] [id number] [address] [place] [phone] Sep, [facility] [address] [id number] [address] [place] [id number] Sep, [facility] [address] [id number] [address] [place] [address], [place] [address] Sep, [facility] [address] [id number] [address] [place] [address], [place] [address] Aug, [facility] [address] [id number] [address] [place] [address], [place] [address] Aug, [facility] [address] [id number] [address] [place] [id number] Aug, [facility] [address] [id number] [address] [place] [phone] Aug, [facility] [address] [id number] [address] [place] [id number] Aug, [facility] [address] [id number] [address] [place] [phone] Aug, [facility] [address] [id number] [address] [place] [phone] Aug, [facility] [address] [id number] [address] [place] [phone] Aug, [facility] [facility] [address] [id number] [address] [place] [id number] Aug, [facility] [address] [id number] [address] [place] [phone] Jul, [facility] [address] [id number] [address] [place] [id number] May, IMMUNIZATIONS No Known Immunizations SOCIAL HISTORY Never Assessed REASON FOR VISIT BH intake -- Past patient of Hernando Gross. Kati MELCHOR PLAN OF CARE Activity Details Follow Up 4 Weeks Reason:med f/u VITAL SIGNS Height 68 in 2017-05-15 Weight 206.8 lbs 2017-05-15 Heart Rate 84 bpm 2017-05-15 Respiratory Rate 20 2017-05-15 BMI 31.44 kg/m2 2017-05-15 Blood pressure systolic 122 mmHg 2017-05-15 Blood pressure diastolic 68 mmHg 2017-05-15 MEDICATIONS Medication Instructions Dosage Frequency Start Date End Date Duration S tatus Lipitor 10 mg Orally Once a day 1 tablet 24h Jan, Active Aciphex 20 mg Orally Once a day 1 tablet 24h Jan, Active Aluminum Chloride 20 % 1 time per dayat night May, Active Cymbalta 30 MG Orally Once a day 1 capsule 24h Apr, 07 days Active Lisinopril 20 mg Orally Once a day 1 tablet 24h 30 Active Levothyroxine Sodium 125 MCG Orally Once a day 1 tablet on an empty stomach in the morning 24h March, 30 day(s) Active Topiramate 100 MG Orally Once a day 1 tablet 24h Dec, Active Cymbalta 60 mg Orally Once a day 1 capsule 24h Apr, 30 day(s) Active RESULTS No Results [...]
--- OUTSIDE RECORDS SUMMARY | 2020-02-07 09:27 | XMS REPORT ---
Author Author Britton CHUA Organization [facility] Address [address] [place] [address] Care Team Providers Care Global Human Resources Director Name Role Phone CHUAVAZQUEZYULI Unavailable PROBLEMS Type Condition ICD9-CM Code [id number] Code Onset Dates Condition S tatus SNOMED Code Problem Depression, unspecified depression type F32.9 Active 84877848 Problem Gastroesophageal reflux disease, esophagitis pre sence not specified K21.9 Active 418868048 Problem Insomnia, unspecified type G47.00 Act mary 734150966 Problem Major depressive disorder, recurrent, moderate F33 .1 Active 55227651 Problem Generalized anxiety disorder F41.1 A ctive 28529794 Problem Environmental allergies Z91.09 Active 627312940 Problem Acute eczema L30.9 Active 7878321 02 Problem Personality disorder in adult F60.9 Active 54333369 Problem Tingling in extremities R20.2 Active 02817029 Problem Anxiety F41.9 Active 64554123 Problem 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
--- OUTSIDE RECORDS SUMMARY | 2020-02-07 09:27 | XMS REPORT ---
Author Author Britton CHUA Organization [facility] Address [address] [place] [address] Care Team Providers Care Mill Control Operator Name Role Phone HARSHIL YULI Unavailable PROBLEMS Type Condition ICD9-CM Code [id number] Code Onset Dates Condition S tatus SNOMED Code Problem Depression, unspecified depression type F32.9 Active 54031762 Problem Gastroesophageal reflux disease, esophagitis pre sence not specified K21.9 Active 977836523 Problem Insomnia, unspecified type G47.00 Act mary 857540950 Problem Major depressive disorder, recurrent, moderate F33 .1 Active 21331351 Problem Generalized anxiety disorder F41.1 A ctive 46028137 Problem Environmental allergies Z91.09 Active 575472988 Problem Acute eczema L30.9 Active 7547958 02 Problem Personality disorder in adult F60.9 Active 28808876 Problem Tingling in extremities R20.2 Active 47222889 Problem Anxiety F41.9 Active 70952142 Problem 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 Active 387931715 Problem Acquired hypothyroidism E03.9 Active 183921470 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 38747638 Problem Hypercholesterolemia E78.0 Active 74702303 Problem Secondary hypertension I15.9 Active 96895340 ALLERGIES No Known Allergies SOCIAL HISTORY Never Assessed PLAN OF CARE Activity Details Follow Up 3 Months Reason:hypothyroid VITAL SIGNS Height 68 in 2017-03-29 Weight 213 lbs 2017-03-29 Temperature 98.7 degrees Fahrenheit 2017-03-29 Heart Rate 80 bpm 2017-03-29 Respiratory Rate 18 2017-03-29 BMI 32.38 kg/m2 2017-03-29 Blood pressure systolic 112 mmHg 2017-03-29 Blood pressure diastolic 80 mmHg 2017-03-29 MEDICATIONS Medication Instructions Dosage Frequency Start Date End Date Duration S tatus Lipitor 10 mg Orally Once a day 1 tablet 24h Jan, Active Aciphex 20 mg Orally Once a day 1 tablet 24h 24 Jan, 2015 Active Multivitamins Active Levothyroxine Sodium 100 MCG Orally Once a day 1 tablet on an empty stomach in the morning 24h Aug, Active Aluminum Chloride 20 % 1 time per dayat night May, Active Zyrtec Allergy 10 MG Orally Once a day 1 capsule as needed 24h Active Sertraline HCl 50 MG TAKE ONE TABLET BY MOUTH ONCE DAILY Active Zoloft 100 mg Orally Once a day 2 tablets 24h Nov, Active Topiramate 100 MG Orally Once a day 1 tablet 24h Dec, Active Lisinopril 20 mg Orally Once a day 1 tablet 24h Active Fish Oil 2 Capsule by Oral route 1 time per day Dec, Active RESULTS Name Result Date Reference Range A1C (IN HOUSE) 2017-03-29 A1C IN HOUSE 5.5 4.3 - 5.6 % Previous A1c n/a Lot [id number] Exp date 11/2018 PROCEDURES Procedure Date Ordered Result Body Site GLYCATED HEMOGLOBIN TEST March 29, 2017 IMMUNIZATIONS No Known Immunizations MEDICAL (GENERAL) HISTORY [...]
--- OUTSIDE RECORDS SUMMARY | 2020-02-07 09:29 | XMS REPORT | Continuity of Care Document ---
Author Organization Unknown Address Unknown Phone Unavailable Allergies Active Description Code Type Severity Reaction Onset Reported/Identified Relationship to Patient Clinical Status Yes No Known Drug Allergies [id number] Drug Allergy Unknown N/A 02/10/2012 Yes amoxicillin [id number] Drug Aller gy Unknown N/A 02/05/2020 Medications There is no data. 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 06/12/2011 VINITA BARBOSA DO 696.1 Other Psoriasis And Similar Disorders 06/12/2011 VINITA BARBOSA DO 788.42 Polyuria 06/12/2011 VINITA BARBOSA DO V69.2 High-risk Sexual Behavior 06/12/2011 JOVITA MURRAY DO 401 .1 HYPERTENSION, BENIGN ESSENTIAL 06/12/2011 JOVITA MURRAY DO 607 .84 Impotence Organic 06/12/2011 JOVITA MURRAY DO 696 .1 Other Psoriasis And Similar Disorders 06/12/2011 JOVITA MURRAY DO 788 .42 Polyuria 06/12/2011 JOVITA MURRAY DO V69 .2 High-risk Sexual Behavior 06/12/2011 NILSON IRWIN APRN 401.1 HYPERTENSION, BENIGN ESSENTIAL 06/12/2011 NILSON IRWIN APRN 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 06/12/2011 NILSON IRWIN APRN 696.1 Other Psoriasis And Similar Disorders 06/12/2011 NILSON IRWIN APRN 788.42 Polyuria 06/12/2011 NILSON IRWIN APRN V69.2 High-risk Sexual Behavior 06/12/2011 CHARISSE GUTIERREZ PA-C 401.1 HYPERTENSION, BENIGN ESSENTIAL 06/12/2011 CHARISSE GUTIERREZ PA-C 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 06/12/2011 CHARISSE GUTIERREZ PA-C 696.1 Other Psoriasis And Similar Disorders 06/12/2011 CHARISSE GUTIERREZ PA-C 788.42 Polyuria 06/12/2011 CHARISSE GUTIERREZ PA-C V69.2 High-risk Sexual Behavior 06/12/2011 401.1 HYPE RTENSION, BENIGN ESSENTIAL 06/12/2011 607.84 Imp otence Organic 06/12/2011 696.1 Othe r Psoriasis And Similar Disorders 06/12/2011 788.42 Carmelo yuria 06/12/2011 V69.2 High -risk Sexual Behavior 06/12/2011 401.1 HYPE RTENSION, BENIGN ESSENTIAL 06/12/2011 607.84 Imp otence Organic 06/12/2011 696.1 Othe r Psoriasis And Similar Disorders 06/12/2011 788.42 Carmelo yuria 06/12/2011 V69.2 High -risk Sexual Behavior 06/12/2011 401.1 HYPE RTENSION, BENIGN ESSENTIAL 06/12/2011 607.84 Imp otence Organic 06/12/2011 696.1 Othe r Psoriasis And Similar Disorders 06/12/2011 788.42 Carmelo yuria 06/12/2011 V69.2 High -risk Sexual Behavior 06/12/2011 401.1 HYPE RTENSION, BENIGN ESSENTIAL 06/12/2011 607.84 Imp otence Organic 06/12/2011 696.1 Othe r Psoriasis And Similar Disorders 06/12/2011 788.42 Carmelo yuria 06/12/2011 V69.2 High -risk Sexual Behavior 06/12/2011 NILSON IRWIN APRN 401.1 HYPERTENSION, BENIGN ESSENTIAL 06/12/2011 NILSON IRWIN APRN 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 06/12/2011 NILSON IRWIN APRN 696.1 Other Psoriasis And Similar Disorders 06/12/2011 NILSON IRWIN APRN 788.42 Polyuria 06/12/2011 NILSON IRWIN APRN V69.2 High-risk Sexual Behavior 06/12/2011 [facility] HYPERTENSION, BENIGN ESSENTIAL 06/12/2011 [facility], NAVEEN R 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 06/12/2011 [facility] 696.1 Other Psoriasis And Similar Disorders 06/12/2011 [facility] 788.42 Polyuria 06/12/2011 [facility] V69.2 High-risk Sexual Behavior 06/12/2011 BARBOSA DO, VINITA K 401.1 HYPERTENSION, BENIGN ESSENTIAL 06/12/2011 BARBOSA DO, VINITA K 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 06/12/2011 BARBOSA DO, VINITA K 696.1 Other Psoriasis And Similar Disorders 06/12/2011 BARBOSA DO, VINITA K 788.42 Polyuria 06/12/2011 BARBOSA DO, VINITA K V69.2 High-risk Sexual Behavior 06/12/2011 401.1 HYPE RTENSION, BENIGN ESSENTIAL 06/12/2011 607.84 Imp otence Organic 06/12/2011 696.1 Othe r Psoriasis And Similar Disorders 06/12/2011 788.42 Carmelo yuria 06/12/2011 V69.2 High -risk Sexual Behavior 06/12/2011 [facility], NAVEEN R 401.1 HYPERTENSION, BENIGN ESSENTIAL 06/12/2011 [facility] 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 06/12/2011 [facility], NAVEEN R 696.1 Other Psoriasis And Similar Disorders 06/12/2011 [facility] 788.42 Polyuria 06/12/2011 [facility], NAVEEN R V69.2 High-risk Sexual Behavior 06/12/2011 SONYA WHITAKER MD 401.1 HYPERTENSION, BENIGN ESSENTIAL 06/12/2011 SONYA WHITAKER MD 607.8 4 Impotence Organic 06/12/2011 SONYA WHITAKER MD 696.1 Other Psoriasis And Similar Disorders 06/12/2011 SONYA WHITAKER MD 788.4 2 Polyuria 06/12/2011 SONYA WHITAKER MD V69.2 High-risk Sexual Behavior 06/12/2011 BARBOSA DO, VINITA K 401.1 HYPERTENSION, BENIGN ESSENTIAL 06/12/2011 BARBOSA DO, VINITA K 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 06/12/2011 BARBOSA DO, VINITA K 696.1 Other Psoriasis And Similar Disorders 06/12/2011 BARBOSA DO, VINITA K 788.42 Polyuria 06/12/2011 BARBOSA DO, VINITA K V69.2 High-risk Sexual Behavior 06/12/2011 [employer] 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, DIANE 401 .1 HYPERTENSION, BENIGN ESSENTIAL 06/12/2011 [employer] 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, DIANE 607 .84 Impotence Organic 06/12/2011 [employer] 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, DIANE 696 .1 Other Psoriasis And Similar Disorders 06/12/2011 [employer] 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, DIANE 788 .42 Polyuria 06/12/2011 [employer] 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, DIANE V69 .2 High-risk Sexual Behavior 06/12/2011 [employer] 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, DIANE 401 .1 HYPERTENSION, BENIGN ESSENTIAL 06/12/2011 [employer] 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, DIANE 607 .84 Impotence Organic 06/12/2011 R[employer] 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, DIANE 696 .1 Other Psoriasis And Similar Disorders 06/12/2011 [employer] 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, DIANE 788 .42 Polyuria 06/12/2011 RAND[employer] 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, DIANE V69 .2 High-risk Sexual Behavior 06/12/2011 BARBARA 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, FATOU R 401.1 HYPERTENSION, BENIGN ESSENTIAL 06/12/2011 [employer]A 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, FATOU R 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 06/12/2011 BARBARA 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, FATOU R 696.1 Other Psoriasis And Similar Disorders 06/12/2011 [employer]BARA 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, FATOU R 788.42 Polyuria 06/12/2011 BARBARA 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, FATOU R V69.2 High-risk Sexual Behavior 06/12/2011 BARBOSA DO, VINITA K 401.1 HYPERTENSION, BENIGN ESSENTIAL 06/12/2011 BARBOSA DO, VINITA K 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 06/12/2011 BARBOSA DO, VINITA K 696.1 Other Psoriasis And Similar Disorders 06/12/2011 BARBOSA DO, VINITA K 788.42 Polyuria 06/12/2011 BARBOSA DO, VINITA K V69.2 High-risk Sexual Behavior 06/12/2011 [employer] 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, DIANE 401 .1 HYPERTENSION, BENIGN ESSENTIAL 06/12/2011 [employer] 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, DIANE 607 .84 Impotence Organic 06/12/2011 R[employer] 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, DIANE 696 .1 Other Psoriasis And Similar Disorders 06/12/2011 R[employer] 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, DIANE 788 .42 Polyuria 06/12/2011 R[employer] 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, DIANE V69 .2 High-risk Sexual Behavior 06/12/2011 CARLO NGUYEN APRN 401. 1 HYPERTENSION, BENIGN ESSENTIAL 06/12/2011 CARLO NGUYEN APRN 607. 84 Impotence Organic 06/12/2011 CARLO NGUYEN APRN 696. 1 Other Psoriasis And Similar Disorders 06/12/2011 CARLO NGUYEN APRN 788. 42 Polyuria 06/12/2011 CARLO NGUYEN APRN V69. 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 06/12/2011 BARBOSA DO, VINITA K 696.1 Other Psoriasis And Similar Disorders 06/12/2011 BARBOSA DO, VINITA K 788.42 Polyuria 06/12/2011 BARBOSA DO, VINITA K V69.2 High-risk Sexual Behavior 06/12/2011 BARBOSA DO, VINITA K 401.1 HYPERTENSION, BENIGN ESSENTIAL 06/12/2011 BARBOSA DO, VINITA K 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 06/12/2011 BARBOSA DO, VINITA K 696.1 Other Psoriasis And Similar Disorders 06/12/2011 BARBOSA DO, VINITA K 788.42 Polyuria 06/12/2011 BARBOSA DO, VINITA K V69.2 High-risk Sexual Behavior 06/15/2011 BARBOSA DO, VINITA K 300.02 AN GEN ANXIETY 06/15/2011 JOVITA MURRAY DO 300 .02 AN GEN ANXIETY 06/15/2011 NILSON IRWIN APRN 300.02 AN GEN ANXIETY 06/15/2011 CHARISSE GUTIERREZ PA-C 300.02 AN GEN ANXIETY 06/15/2011 300.02 AN GEN ANXIETY 06/15/2011 300.02 AN GEN ANXIETY 06/15/2011 300.02 AN GEN ANXIETY 06/15/2011 300.02 AN GEN ANXIETY 06/15/2011 NILSON IRWIN APRN 300.02 AN GEN ANXIETY 06/15/2011 [facility], NAVEEN R 300.02 AN GEN ANXIETY 06/15/2011 VINITA BARBOSA DO 300.02 AN GEN ANXIETY 06/15/2011 300.02 AN GEN ANXIETY 06/15/2011 [facility], NAVEEN R 300.02 AN GEN ANXIETY 06/15/2011 JULIANNE BERGMAN, SONYA 300.0 2 AN GEN ANXIETY 06/15/2011 VINITA BARBOSA DO 300.02 AN GEN ANXIETY 06/15/2011 [employer]AND[employer] 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SAM BeckerDIANE 300 .02 AN GEN ANXIETY 06/15/2011 RAND[employer] 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, DIANE 300 .02 AN GEN ANXIETY 06/15/2011 FATOU JIMENEZ APRN R 300.02 AN GEN ANXIETY 06/15/2011 VINITA BARBOSA DO 300.02 AN GEN ANXIETY 06/15/2011 RANDALL HUGH DIANE 300 .02 AN GEN ANXIETY 06/15/2011 CARLO NGUYEN APRN 300. 02 AN GEN ANXIETY 06/15/2011 RANDALL HUGH DIANE 300 .02 AN GEN ANXIETY 06/15/2011 VINITA BARBOSA DO 300.02 AN GEN ANXIETY 06/15/2011 VINITA BARBOSA DO 300.02 AN GEN ANXIETY 06/29/2011 VINITA BARBOSA DO 296.33 MO DEPRESSIVE 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 06/29/2011 VINITA BARBOSA DO 301.9 PD PERS DIS NOS 06/29/2011 JOVITA MURRAY DO F 296 .33 MO DEPRESSIVE 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 06/29/2011 JOVITA MURRAY DO F 301 .9 PD PERS DIS NOS 06/29/2011 NILSON IRWIN APRN 296.33 MO DEPRESSIVE 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 06/29/2011 NILSON IRWIN APRN 301.9 PD PERS DIS NOS 06/29/2011 CHARISSE GUTIERREZ PA-C 296.33 MO DEPRESSIVE 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 06/29/2011 CHARISSE GUTIERREZ PA-C 301.9 PD PERS DIS NOS 06/29/2011 296.33 MO DEPRESSIVE 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 06/29/2011 301.9 PD P ERS DIS NOS 06/29/2011 296.33 MO DEPRESSIVE 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 06/29/2011 301.9 PD P ERS DIS NOS 06/29/2011 296.33 MO DEPRESSIVE 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 06/29/2011 301.9 PD P ERS DIS NOS 06/29/2011 296.33 MO DEPRESSIVE 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 06/29/2011 301.9 PD P ERS DIS NOS 06/29/2011 NILSON IRWIN APRN 296.33 MO DEPRESSIVE 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 06/29/2011 NILSON IRWIN APRN 301.9 PD PERS DIS NOS 06/29/2011 [facility], NAVEEN R 296.33 MO DEPRESSIVE 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 06/29/2011 [facility], NAVEEN R 301.9 PD PERS DIS NOS 06/29/2011 VINITA BARBOSA DO K 296.33 MO DEPRESSIVE 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 06/29/2011 ZEENAT BARBOSA DOA K 301.9 PD PERS DIS NOS 06/29/2011 296.33 MO DEPRESSIVE 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 06/29/2011 301.9 PD P ERS DIS NOS 06/29/2011 [facility], NAVEEN R 296.33 MO DEPRESSIVE 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 06/29/2011 [facility], NAVEEN R 301.9 PD PERS DIS NOS 06/29/2011 SONYA WHITAKER MD 296.3 3 MO DEPRESSIVE 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 06/29/2011 SONYA WHITAKER MD 301.9 PD PERS DIS NOS 06/29/2011 BARBOSA DO VINITA K 296.33 MO DEPRESSIVE 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 06/29/2011 BARBOAS DO VINITA K 301.9 PD PERS DIS NOS 06/29/2011 RANDALL REESE DIANE 296 .33 MO DEPRESSIVE 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 06/29/2011 RAND[employer] 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, DIANE 301 .9 PD PERS DIS NOS 06/29/2011 RAND[employer] 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, DIANE 296 .33 MO DEPRESSIVE 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 06/29/2011 RANDALL REESE DIANE 301 .9 PD PERS DIS NOS 06/29/2011 [employer]A 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, FATOU R 296.33 MO DEPRESSIVE 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 06/29/2011 [employer] 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, FATOU R 301.9 PD PERS DIS NOS 06/29/2011 BARBOSA DO, VINITA K 296.33 MO DEPRESSIVE 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 06/29/2011 BARBOSA DO, VINITA K 301.9 PD PERS DIS NOS 06/29/2011 RAND[employer] 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, DIANE 296 .33 MO DEPRESSIVE 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 06/29/2011 RAND[employer] 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, DIANE 301 .9 PD PERS DIS NOS 06/29/2011 NGUYEN 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, CARLO D 296. 33 MO DEPRESSIVE 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 06/29/2011 NGUYEN 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 CARLO D 301. 9 PD PERS DIS NOS 06/29/2011 RANDALL 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, DIANE 296 .33 MO DEPRESSIVE 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 06/29/2011 RAND[employer] 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, DIANE 301 .9 PD PERS DIS NOS 06/29/2011 BARBOSA DO, VINITA K 296.33 MO DEPRESSIVE 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 06/29/2011 BARBOSA DO, VINITA K 301.9 PD PERS DIS NOS 06/29/2011 BARBOSA DO, VINITA K 296.33 MO DEPRESSIVE 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 06/29/2011 BARBOSA DO, VINITA K 301.9 PD PERS DIS NOS 07/21/2011 BARBOSA DO, VINITA K 301.83 PD BORDERLINE 07/21/2011 JOVITA MURRAY DO 301 .83 PD BORDERLINE 07/21/2011 NILSON IRWIN APRN 301.83 PD BORDERLINE 07/21/2011 CHARISSE GUTIERREZ PA-C 301.83 PD BORDERLINE 07/21/2011 301.83 PD BORDERLINE 07/21/2011 301.83 PD BORDERLINE 07/21/2011 301.83 PD BORDERLINE 07/21/2011 301.83 PD BORDERLINE 07/21/2011 NILSON IRWIN APRN 301.83 PD BORDERLINE 07/21/2011 [facility], NAVEEN Maciel 301.83 PD BORDERLINE 07/21/2011 BARBOSA ZEENAT MARROQUINA K 301.83 PD BORDERLINE 07/21/2011 301.83 PD BORDERLINE 07/21/2011 [facility], NAVEEN Maciel 301.83 PD BORDERLINE 07/21/2011 JULIANNE BERGMAN, SONYA 301.8 3 PD BORDERLINE 07/21/2011 BARBOSA DO, VINITA K 301.83 PD BORDERLINE 07/21/2011 RAND[employer] 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, DIANE 301 .83 PD BORDERLINE 07/21/2011 RAND[employer] 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, DIANE 301 .83 PD BORDERLINE 07/21/2011 [employer] 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, FATOU R 301.83 PD BORDERLINE 07/21/2011 BARBOSA DO, VINITA K 301.83 PD BORDERLINE 07/21/2011 RAND[employer] 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, DIANE 301 .83 PD BORDERLINE 07/21/2011 CARLO NGUYEN APRN 301. 83 PD BORDERLINE 07/21/2011 R[employer] 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, DIANE 301 .83 PD BORDERLINE 07/21/2011 BARBOSA DO, VINITA K 301.83 PD BORDERLINE 07/21/2011 BARBOSA DO, VINITA K 301.83 PD BORDERLINE 07/25/2011 BARBOSA DO, VINITA K 729.5 Pain In Limb 07/25/2011 JOVITA MURRAY DO 729 .5 Pain In Limb 07/25/2011 NILSON IRWIN APRN 729.5 Pain In Limb 07/25/2011 CHARISSE GUTIERREZ PA-C 729.5 Pain In Limb 07/25/2011 729.5 Pain In Limb 07/25/2011 729.5 Pain In Limb 07/25/2011 729.5 Pain In Limb 07/25/2011 729.5 Pain In Limb 07/25/2011 NILSON IRWIN APRN 729.5 Pain In Limb 07/25/2011 [facility], NAVEEN R 729.5 Pain In Limb 07/25/2011 BARBOSA DOZEENATA K 729.5 Pain In Limb 07/25/2011 729.5 Pain In Limb 07/25/2011 [facility], NAVEEN R 729.5 Pain In Limb 07/25/2011 SONYA WHITAKER MD 729.5 Pain In Limb 07/25/2011 BARBOSA DO VINITA K 729.5 Pain In Limb 07/25/2011 RAND[employer] 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, DIANE 729 .5 Pain In Limb 07/25/2011 RAND[employer] 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, DIANE 729 .5 Pain In Limb 07/25/2011 LISA JIMENEZ APRNINA R 729.5 Pain In Limb 07/25/2011 BARBOSA DO, VINITA K 729.5 Pain In Limb 07/25/2011 DIANE PEREIRA APRN 729 .5 Pain In Limb 07/25/2011 CARLO NGUYEN APRN 729. 5 Pain In Limb 07/25/2011 DIANE PEREIRA APRN 729 .5 Pain In Limb 07/25/2011 VINTIA BARBOSA DO K 729.5 Pain In Limb 07/25/2011 ZEENAT BARBOSA DOA K 729.5 Pain In Limb 08/04/2011 ZEEANT BARBOSA DOA K 242.90 HYPERTHYROIDISM 08/04/2011 JOVITA MURRAY DO 242 .90 HYPERTHYROIDISM 08/04/2011 NILSON IRWIN APRN 242.90 HYPERTHYROIDISM 08/04/2011 CHARISSE GUTIERREZ PA-C 242.90 HYPERTHYROIDISM 08/04/2011 242.90 HYP ERTHYROIDISM 08/04/2011 242.90 HYP ERTHYROIDISM 08/04/2011 242.90 HYP ERTHYROIDISM 08/04/2011 242.90 HYP ERTHYROIDISM 08/04/2011 NILSON IRWIN APRN 242.90 HYPERTHYROIDISM 08/04/2011 [facility], NAVEEN R 242.90 HYPERTHYROIDISM 08/04/2011 ZEENAT BARBOSA DOA K 242.90 HYPERTHYROIDISM 08/04/2011 242.90 HYP ERTHYROIDISM 08/04/2011 [facility], NAVEEN R 242.90 HYPERTHYROIDISM 08/04/2011 JULIANNE BERGMAN, SONYA 242.9 0 HYPERTHYROIDISM 08/04/2011 VINITA BARBOSA DO K 242.90 HYPERTHYROIDISM 08/04/2011 RANDALL REESE DIANE 242 .90 HYPERTHYROIDISM 08/04/2011 RANDALL REESE DIANE 242 .90 HYPERTHYROIDISM 08/04/2011 FATOU JIMENEZ APRN 242.90 HYPERTHYROIDISM 08/04/2011 CHELSEY MARROQUIN VINITA K 242.90 HYPERTHYROIDISM 08/04/2011 RAND[employer] 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, DIANE 242 .90 HYPERTHYROIDISM 08/04/2011 CARLO NGUYEN APRN 242. 90 HYPERTHYROIDISM 08/04/2011 RANDALLKAROLYN REESE DIANE 242 .90 HYPERTHYROIDISM 08/04/2011 CHELSEY MARROQUIN VINITA K 242.90 HYPERTHYROIDISM 08/04/2011 ZEENAT BARBOSA DOA K 242.90 HYPERTHYROIDISM 08/07/2011 ZEENAT BARBOSA DOA K 272.4 OTHER AND UNSPECIFIED HYPERLIPIDEMIA 08/07/2011 VINITA BARBOSA DO K 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 08/07/2011 VINITA BARBOSA DO K 302.72 PSYCHOSEXUAL DYSFUNCTION WITH INHIBITED SEXUAL EXCITEMENT 08/07/2011 VINITA BARBOSA DO K 553.20 UNSPECIFIED VENTRAL HERNIA WITHOUT OBSTRUCTION OR GANGRENE 08/07/2011 VINITA BARBOSA DO K 692.9 Contact Dermatitis And Other Eczema Unspecified Cause 08/07/2011 VINITA BARBOSA DO K V74.5 Screening Examination For Venereal Disease 08/07/2011 JOVITA MURRAY DO F 272 .4 OTHER AND UNSPECIFIED HYPERLIPIDEMIA 08/07/2011 JOVITA MURRAY DO F 300 .4 MO DYSTHYMIC DISORDER 08/07/2011 JOVITA MURRAY DO F 302 .72 PSYCHOSEXUAL DYSFUNCTION WITH INHIBITED SEXUAL EXCITEMENT 08/07/2011 JOVITA MURRAY DO F 553 .20 UNSPECIFIED VENTRAL HERNIA WITHOUT OBSTRUCTION OR GANGRENE 08/07/2011 JOVITA MURRAY DO F 692 .9 Contact Dermatitis And Other Eczema Unspecified Cause 08/07/2011 JOVITA MURRAY DO V74 .5 Screening Examination For Venereal Disease 08/07/2011 NILSON IRWIN APRN 272.4 OTHER AND UNSPECIFIED HYPERLIPIDEMIA 08/07/2011 NILSON IRWIN APRN 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 08/07/2011 NILSON IRWIN APRN 302.72 PSYCHOSEXUAL DYSFUNCTION WITH INHIBITED SEXUAL EXCITEM ENT 08/07/2011 NILSON IRWIN APRN 553.20 UNSPECIFIED VENTRAL HERNIA WITHOUT OBSTRUCTION OR GANG YENNI 08/07/2011 NILSON IRWIN APRN 692.9 Contact Dermatitis And Other Eczema Unspecified Cause 08/07/2011 NILSON IRWIN APRN V74.5 Screening Examination For Venereal Disease 08/07/2011 CHARISSE GUTIERREZ PA-C 272.4 OTHER AND UNSPECIFIED HYPERLIPIDEMIA 08/07/2011 CHARISSE GUTIERREZ PA-C 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 08/07/2011 CHARISSE GUTIERREZ PA-C 302.72 PSYCHOSEXUAL DYSFUNCTION WITH INHIBITED SEXUAL EXCITEM ENT 08/07/2011 CHARISSE GUTIERREZ PA-C 553.20 UNSPECIFIED VENTRAL HERNIA WITHOUT OBSTRUCTION OR GANG YENNI 08/07/2011 CHARISSE GUTIERREZ PA-C 692.9 Contact Dermatitis And Other Eczema Unspecified Cause 08/07/2011 CHARISSE GUTIERREZ PA-C V74.5 Screening Examination For Venereal Disease 08/07/2011 272.4 OTHE R AND UNSPECIFIED HYPERLIPIDEMIA 08/07/2011 300.4 MO D YSTHYMIC DISORDER 08/07/2011 302.72 PSY CHOSEXUAL DYSFUNCTION WITH INHIBITED SEXUAL EXCITEMENT 08/07/2011 553.20 UNS PECIFIED VENTRAL HERNIA WITHOUT OBSTRUCTION OR GANGRENE 08/07/2011 692.9 Cont act Dermatitis And Other Eczema Unspecified Cause 08/07/2011 V74.5 Scre ening Examination For Venereal Disease 08/07/2011 272.4 OTHE R AND UNSPECIFIED HYPERLIPIDEMIA 08/07/2011 300.4 MO D YSTHYMIC DISORDER 08/07/2011 302.72 PSY CHOSEXUAL DYSFUNCTION WITH INHIBITED SEXUAL EXCITEMENT 08/07/2011 553.20 UNS PECIFIED VENTRAL HERNIA WITHOUT OBSTRUCTION OR GANGRENE 08/07/2011 692.9 Cont act Dermatitis And Other Eczema Unspecified Cause 08/07/2011 V74.5 Scre ening Examination For Venereal Disease 08/07/2011 272.4 OTHE R AND UNSPECIFIED HYPERLIPIDEMIA 08/07/2011 300.4 MO D YSTHYMIC DISORDER 08/07/2011 302.72 PSY CHOSEXUAL DYSFUNCTION WITH INHIBITED SEXUAL EXCITEMENT 08/07/2011 553.20 UNS PECIFIED VENTRAL HERNIA WITHOUT OBSTRUCTION OR GANGRENE 08/07/2011 692.9 Cont act Dermatitis And Other Eczema Unspecified Cause 08/07/2011 V74.5 Scre ening Examination For Venereal Disease 08/07/2011 272.4 OTHE R AND UNSPECIFIED HYPERLIPIDEMIA 08/07/2011 300.4 MO D YSTHYMIC DISORDER 08/07/2011 302.72 PSY CHOSEXUAL DYSFUNCTION WITH INHIBITED SEXUAL EXCITEMENT 08/07/2011 553.20 UNS PECIFIED VENTRAL HERNIA WITHOUT OBSTRUCTION OR GANGRENE 08/07/2011 692.9 Cont act Dermatitis And Other Eczema Unspecified Cause 08/07/2011 V74.5 Scre ening Examination For Venereal Disease 08/07/2011 NILSON IRWIN APRN 272.4 OTHER AND UNSPECIFIED HYPERLIPIDEMIA 08/07/2011 NILSON IRWIN APRN 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 08/07/2011 NILSON IRWIN APRN 302.72 PSYCHOSEXUAL DYSFUNCTION WITH INHIBITED SEXUAL EXCITEM ENT 08/07/2011 NILSON IRWIN APRN 553.20 UNSPECIFIED VENTRAL HERNIA WITHOUT OBSTRUCTION OR GANG YENNI 08/07/2011 NLISON IRWIN APRN 692.9 Contact Dermatitis And Other Eczema Unspecified Cause 08/07/2011 NILSON IRWIN APRN V74.5 Screening [facility] OTHER AND UNSPECIFIED HYPERLIPIDEMIA 08/07/2011 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/07[facility] PSYCHOSEXUAL DYSFUNCTION WITH INHIBITED SEXUAL EXCITEM ENT 08/07/2011 [facility] UNSPECIFIED VENTRAL HERNIA WITHOUT OBSTRUCTION OR GANG YENNI 08/07/2011 [facility] Contact Dermatitis And Other Eczema Unspecified Cause 08/07/[facility] Scre[facility] Examination For Venereal Disease 08/07/2011 VINITA BARBOSA DO 272.4 OTHER AND UNSPECIFIED HYPERLIPIDEMIA 08/07/2011 VINITA BARBOSA DO 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 08/07/2011 VINITA BARBOSA DO 302.72 PSYCHOSEXUAL DYSFUNCTION WITH INHIBITED SEXUAL EXCITEMENT 08/07/2011 VINITA BARBOSA DO 553.20 UNSPECIFIED VENTRAL HERNIA WITHOUT OBSTRUCTION OR GANGRENE 08/07/2011 VINITA BARBOSA DO 692.9 Contact Dermatitis And Other Eczema Unspecified Cause 08/07/2011 VINITA BARBOSA DO V74.5 Screening Examination For Venereal Disease 08/07/2011 272.4 OTHE R AND UNSPECIFIED HYPERLIPIDEMIA 08/07/2011 300.4 MO D YSTHYMIC DISORDER 08/07/2011 302.72 PSY CHOSEXUAL DYSFUNCTION WITH INHIBITED SEXUAL EXCITEMENT 08/07/2011 553.20 UNS PECIFIED VENTRAL HERNIA WITHOUT OBSTRUCTION OR GANGRENE 08/07/2011 692.9 Cont act Dermatitis And Other Eczema Unspecified Cause 08/07/2011 V74.5 Scre ening Examination For [facility]enereal Disease [facility]/07[facility] OTHER AND UNSPECIFIED HYPERLIPIDEMIA 08/07/2011 [facility], NAVEEN R 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 08/07/2011 [facility], NAVENE R 302.72 PSYCHOSEXUAL DYSFUNCTION WITH INHIBITED SEXUAL EXCITEM ENT 08/07/2011 [facility], NAVEEN R 553.20 UNSPECIFIED VENTRAL HERNIA WITHOUT OBSTRUCTION OR GANG YENNI 08/07/2011 [facility], NAVEEN R 692.9 Contact Dermatitis And Other Eczema Unspecified Cause 08/07/2011 [facility], NAVEEN R V74.5 Screening Examination For Venereal Disease 08/07/2011 SONYA WHITAKER MD 272.4 OTHER AND UNSPECIFIED HYPERLIPIDEMIA 08/07/2011 SONYA WHITAKER MD 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 08/07/2011 SONYA WHITAKER MD 302.7 2 PSYCHOSEXUAL DYSFUNCTION WITH INHIBITED SEXUAL EXCITEMENT 08/07/2011 SONYA WHITAKER MD 553.2 0 UNSPECIFIED VENTRAL HERNIA WITHOUT OBSTRUCTION OR GANGRENE 08/07/2011 SONYA WHITAKER MD 692.9 Contact Dermatitis And Other Eczema Unspecified Cause 08/07/2011 SONYA WHITAKER MD V74.5 Screening Examination For Venereal Disease 08/07/2011 VINITA BARBOSA DO 272.4 OTHER AND UNSPECIFIED HYPERLIPIDEMIA 08/07/2011 VINITA BARBOSA DO 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 08/07/2011 VINITA BARBOSA DO 302.72 PSYCHOSEXUAL DYSFUNCTION WITH INHIBITED SEXUAL EXCITEMENT 08/07/2011 VINITA BARBOSA DO 553.20 UNSPECIFIED VENTRAL HERNIA WITHOUT OBSTRUCTION OR GANGRENE 08/07/2011 VINITA BARBOSA DO 692.9 Contact Dermatitis And Other Eczema Unspecified Cause 08/07/2011 VINITA BARBOSA DO V74.5 Screening Examination For Venereal Disease 08/07/2011 RAND[employer] 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, 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 272 .4 OTHER AND UNSPECIFIED HYPERLIPIDEMIA 08/07/2011 RAND[employer] 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, 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 300 .4 MO DYSTHYMIC DISORDER 08/07/2011 RAND[employer] 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, 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 302 .72 PSYCHOSEXUAL DYSFUNCTION WITH INHIBITED SEXUAL EXCITEMENT 08/07/2011 RAND[employer] 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, DIANE 553 .20 UNSPECIFIED VENTRAL HERNIA WITHOUT OBSTRUCTION OR GANGRENE 08/07/2011 R[employer]ALL 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, DIANE 692 .9 Contact Dermatitis And Other Eczema Unspecified Cause 08/07/2011 R[employer] 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, DIANE V74 .5 Screening Examination For Venereal Disease 08/07/2011 RANDALL REESE, DIANE 272 .4 OTHER AND UNSPECIFIED HYPERLIPIDEMIA 08/07/2011 RANDALL 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, DIANE 300 .4 MO DYSTHYMIC DISORDER 08/07/2011 RAND[employer] 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, DIANE 302 .72 PSYCHOSEXUAL DYSFUNCTION WITH INHIBITED SEXUAL EXCITEMENT 08/07/2011 RANDALL 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, DIANE 553 .20 UNSPECIFIED VENTRAL HERNIA WITHOUT OBSTRUCTION OR GANGRENE 08/07/2011 RANDALL REESE, DIANE 692 .9 Contact Dermatitis And Other Eczema Unspecified Cause 08/07/2011 RANDALL REESE, DIANE V74 .5 Screening Examination For Venereal Disease 08/07/2011 BARBARA REESE FATOU R 272.4 OTHER AND UNSPECIFIED HYPERLIPIDEMIA 08/07/2011 BARBARA REESE FATOU R 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 08/07/2011 BARBARA REESE FATOU R 302.72 PSYCHOSEXUAL DYSFUNCTION WITH INHIBITED SEXUAL EXCITEM ENT 08/07/2011 BARBARA REESE FATOU R 553.20 UNSPECIFIED VENTRAL HERNIA WITHOUT OBSTRUCTION OR GANG YENNI 08/07/2011 BARBARA REESE FATOU R 692.9 Contact Dermatitis And Other Eczema Unspecified Cause 08/07/2011 BARBARA REESE FATOU R V74.5 Screening Examination For Venereal Disease 08/07/2011 VINITA BARBOSA DO K 272.4 OTHER AND UNSPECIFIED HYPERLIPIDEMIA 08/07/2011 ZEENAT BARBOSA DOA K 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 08/07/2011 ZEENAT BARBOSA DOA K 302.72 PSYCHOSEXUAL DYSFUNCTION WITH INHIBITED SEXUAL EXCITEMENT 08/07/2011 ZEENAT BARBOSA DOA K 553.20 UNSPECIFIED VENTRAL HERNIA WITHOUT OBSTRUCTION OR GANGRENE 08/07/2011 ZEENAT BARBOSA DOA K 692.9 Contact Dermatitis And Other Eczema Unspecified Cause 08/07/2011 ZEENAT BARBOSA DOA K V74.5 Screening Examination For Venereal Disease 08/07/2011 RANDALL REESE, DIANE 272 .4 OTHER AND UNSPECIFIED HYPERLIPIDEMIA 08/07/2011 RAND[employer] 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, DIANE 300 .4 MO DYSTHYMIC DISORDER 08/07/2011 RAND[employer] 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, DIANE 302 .72 PSYCHOSEXUAL DYSFUNCTION WITH INHIBITED SEXUAL EXCITEMENT 08/07/2011 RANDALL REESE, DIANE 553 .20 UNSPECIFIED VENTRAL HERNIA WITHOUT OBSTRUCTION OR GANGRENE 08/07/2011 DIANE PEREIRA APRN 692 .9 Contact Dermatitis And Other Eczema Unspecified Cause 08/07/2011 DIANE PEREIRA APRN V74 .5 Screening Examination For Venereal Disease 08/07/2011 CARLO NGUYEN APRN 272. 4 OTHER AND UNSPECIFIED HYPERLIPIDEMIA 08/07/2011 CARLO NGUYEN APRN 300. 4 MO DYSTHYMIC DISORDER 08/07/2011 CARLO NGUYEN APRN 302. 72 PSYCHOSEXUAL DYSFUNCTION WITH INHIBITED SEXUAL EXCITEMENT 08/07/2011 CARLO NGUYEN APRN 553. 20 UNSPECIFIED VENTRAL HERNIA WITHOUT OBSTRUCTION OR GANGRENE 08/07/2011 CARLO NGUYEN APRN 692. 9 Contact Dermatitis And Other Eczema Unspecified Cause 08/07/2011 CARLO NGUYEN APRN V74. 5 Screening Examination For Venereal Disease 08/07/2011 DIANE PEREIRA APRN 272 .4 OTHER AND UNSPECIFIED HYPERLIPIDEMIA 08/07/2011 DIANE PEREIRA APRN 300 .4 MO DYSTHYMIC DISORDER 08/07/2011 DIANE PEREIRA APRN 302 .72 PSYCHOSEXUAL DYSFUNCTION WITH INHIBITED SEXUAL EXCITEMENT 08/07/2011 DIANE PEREIRA APRN 553 .20 UNSPECIFIED VENTRAL HERNIA WITHOUT OBSTRUCTION OR GANGRENE 08/07/2011 DIANE PEREIRA APRN 692 .9 Contact Dermatitis And Other Eczema Unspecified Cause 08/07/2011 DIANE PEREIRA APRN V74 .5 Screening Examination For Venereal Disease 08/07/2011 ZEENAT BARBOSA DOA K 272.4 OTHER AND UNSPECIFIED HYPERLIPIDEMIA 08/07/2011 CHELSEY MARROQUIN VINITA K 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 08/07/2011 CHELSEY MARROQUIN VINITA K 302.72 PSYCHOSEXUAL DYSFUNCTION WITH INHIBITED SEXUAL EXCITEMENT 08/07/2011 CHELSEY MARROQUIN VINITA K 553.20 UNSPECIFIED VENTRAL HERNIA WITHOUT OBSTRUCTION OR GANGRENE 08/07/2011 CHELSEY MARROQUIN VINITA K 692.9 Contact Dermatitis And Other Eczema Unspecified Cause 08/07/2011 CHELSEY MARROQUIN VINITA K V74.5 Screening Examination For Venereal Disease 08/07/2011 BARBOSA DO VINITA K 272.4 OTHER AND UNSPECIFIED HYPERLIPIDEMIA 08/07/2011 CHELSEY MARROQUIN VINITA K 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 08/07/2011 VINITA BARBOSA DO K 302.72 PSYCHOSEXUAL DYSFUNCTION WITH INHIBITED SEXUAL EXCITEMENT 08/07/2011 ZEENAT BARBOSA DOA K 553.20 UNSPECIFIED VENTRAL HERNIA WITHOUT OBSTRUCTION OR GANGRENE 08/07/2011 ZEENAT BARBOSA DOA K 692.9 Contact Dermatitis And Other Eczema Unspecified Cause 08/07/2011 ZEENAT BARBOSA DOA K V74.5 Screening Examination For Venereal Disease 08/16/2011 CHELSEY MARROQUIN VINITA K 311 MO DEPRESS NOS 08/16/2011 JOVITA MURRAY DO 311 MO DEPRESS NOS 08/16/2011 NILSON IRWIN APRN 311 MO DEPRESS NOS 08/16/2011 CHARISSE GUTIERREZ PA-C 3 11 MO DEPRESS NOS 08/16/2011 311 MO DEP RESS NOS 08/16/2011 311 MO DEP RESS NOS 08/16/2011 311 MO DEP RESS NOS 08/16/2011 311 MO DEP RESS NOS 08/16/2011 NILSON IRWIN APRN 311 MO DEPRESS NOS 08/16/2011 BRIGITTE [facility], NAVEEN R 311 MO DEPRESS NOS 08/16/2011 CHELSEY MARROQUIN, VINITA K 311 MO DEPRESS NOS 08/16/2011 311 MO DEP RESS NOS 08/16/2011 [facility], NAVEEN R 311 MO DEPRESS NOS 08/16/2011 SONYA WHITAKER MD 311 MO DEPRESS NOS 08/16/2011 CHELSEY MARROQUIN, VINITA K 311 MO DEPRESS NOS 08/16/2011 R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, DIANE 311 MO DEPRESS NOS 08/16/2011 R[employer] 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, DIANE 311 MO DEPRESS NOS 08/16/2011 FATOU JIMENEZ APRN 3 11 MO DEPRESS NOS 08/16/2011 CHELSEY MARROQUIN, VINITA K 311 MO DEPRESS NOS 08/16/2011 R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, DIANE 311 MO DEPRESS NOS 08/16/2011 CARLO NGUYEN APRN 311 MO DEPRESS NOS 08/16/2011 R[employer] 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, DIANE 311 MO DEPRESS NOS 08/16/2011 CHELSEY MARROQUIN VINITA K 311 MO DEPRESS NOS 08/16/2011 BARBOSA DO, VINITA K 311 MO DEPRESS NOS 08/21/2011 CHELSEY MARROQUIN VINITA K 296.32 MO DEPRESSIVE RECURRENT MODERATE 08/21/2011 JOVITA MURRAY DO 296 .32 MO DEPRESSIVE RECURRENT MODERATE 08/21/2011 NILSON IRWIN APRN 296.32 MO DEPRESSIVE RECURRENT MODERATE 08/21/2011 CHARISSE GUTIERREZ PA-C 296.32 MO DEPRESSIVE RECURRENT MODERATE 08/21/2011 296.32 MO DEPRESSIVE RECURRENT MODERATE 08/21/2011 296.32 MO DEPRESSIVE RECURRENT MODERATE 08/21/2011 296.32 MO DEPRESSIVE RECURRENT MODERATE 08/21/2011 296.32 MO DEPRESSIVE RECURRENT MODERATE 08/21/2011 NILSON IRWIN APRN 296.32 MO DEPRESSIVE RECURRENT MODERATE 08/21/2011 [facility], NAVEEN R 296.32 MO DEPRESSIVE RECURRENT MODERATE 08/21/2011 BARBOSA DO, VINITA K 296.32 MO DEPRESSIVE RECURRENT MODERATE 08/21/2011 296.32 MO DEPRESSIVE RECURRENT MODERATE 08/21/2011 [facility], NAVEEN R 296.32 MO DEPRESSIVE RECURRENT MODERATE 08/21/2011 JULIANNE BERGMAN, SONYA 296.3 2 MO DEPRESSIVE RECURRENT MODERATE 08/21/2011 BARBOSA DO, VINITA K 296.32 MO DEPRESSIVE RECURRENT MODERATE 08/21/2011 RAND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, DIANE 296 .32 MO DEPRESSIVE RECURRENT MODERATE 08/21/2011 RAND[employer] 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, DIANE 296 .32 MO DEPRESSIVE RECURRENT MODERATE 08/21/2011 BARBARA 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, FATOU R 296.32 MO DEPRESSIVE RECURRENT MODERATE 08/21/2011 BARBOSA DO, VINITA K 296.32 MO DEPRESSIVE RECURRENT MODERATE 08/21/2011 RAND[employer] 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, DIANE 296 .32 MO DEPRESSIVE RECURRENT MODERATE 08/21/2011 WENDY 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CARLO D 296. 32 MO DEPRESSIVE RECURRENT MODERATE 08/21/2011 RAND[employer] 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, DIANE 296 .32 MO DEPRESSIVE RECURRENT MODERATE 08/21/2011 BARBOSA DO, VINITA K 296.32 MO DEPRESSIVE RECURRENT MODERATE 08/21/2011 BARBOSA DO, VINITA K 296.32 MO DEPRESSIVE RECURRENT MODERATE 09/04/2011 BARBOSA DO, VINITA K 110.4 Dermatophytosis Of Foot 09/04/2011 BARBOSA DO, VINITA K 276.51 Dehydration 09/04/2011 BARBOSA DO, VINITA K 527.7 Disturbance Of Salivary Secretion 09/04/2011 BARBOSA DO, VINITA K 530.81 Esophageal Reflux 09/04/2011 BARBOSA DO, VINITA K 686.9 Unspecified Local Infection Of Skin And Subcutaneous Tissue 09/04/2011 BARBOSA DO VINITA K 724.2 Lumbago 09/04/2011 JOVITA MURRAY DO 110 .4 Dermatophytosis Of Foot 09/04/2011 JOVITA MURRAY DO F 276 .51 Dehydration 09/04/2011 JOVITA MURRAY DO 527 .7 Disturbance Of Salivary Secretion 09/04/2011 JOVITA MURRAY DO 530 .81 Esophageal Reflux 09/04/2011 JOVITA MURRAY DO 686 .9 Unspecified Local Infection Of Skin And Subcutaneous Tissue 09/04/2011 JOVITA MURRAY DO 724 .2 Lumbago 09/04/2011 NILSON IRWIN APRN 110.4 Dermatophytosis Of Foot 09/04/2011 NILSON IRWIN APRN 276.51 Dehydration 09/04/2011 NILSON IRWIN APRN 527.7 Disturbance Of Salivary Secretion 09/04/2011 NILSON IRWIN APRN 530.81 Esophageal Reflux 09/04/2011 NILSON IRWIN APRN 686.9 Unspecified Local Infection Of Skin And Subcutaneous T issue 09/04/2011 NILSON IRWIN APRN 724.2 Lumbago 09/04/2011 CHARISSE GUTIERREZ PA-C 110.4 Dermatophytosis Of Foot 09/04/2011 CHARISSE GUTIERREZ PA-C 276.51 Dehydration 09/04/2011 CHARISSE GUTIERREZ PA-C 527.7 Disturbance Of Salivary Secretion 09/04/2011 CHARISSE GUTIERREZ PA-C 530.81 Esophageal Reflux 09/04/2011 CHARISSE GUTIERREZ PA-C 686.9 Unspecified Local Infection Of Skin And Subcutaneous T issue 09/04/2011 CHARISSE GUTIERREZ PA-C 724.2 Lumbago 09/04/2011 110.4 Derm atophytosis Of Foot 09/04/2011 276.51 Deh ydration 09/04/2011 527.7 Dist urbance Of Salivary Secretion 09/04/2011 530.81 Eso phageal Reflux 09/04/2011 686.9 Unsp ecified Local Infection Of Skin And Subcutaneous Tissue 09/04/2011 724.2 Lumbago 09/04/2011 110.4 Derm atophytosis Of Foot 09/04/2011 276.51 Deh ydration 09/04/2011 527.7 Dist urbance Of Salivary Secretion 09/04/2011 530.81 Eso phageal Reflux 09/04/2011 686.9 Unsp ecified Local Infection Of Skin And Subcutaneous Tissue 09/04/2011 724.2 Lumbago 09/04/2011 110.4 Derm atophytosis Of Foot 09/04/2011 276.51 Deh ydration 09/04/2011 527.7 Dist urbance Of Salivary Secretion 09/04/2011 530.81 Eso phageal Reflux 09/04/2011 686.9 Unsp ecified Local Infection Of Skin And Subcutaneous Tissue 09/04/2011 724.2 Lumbago 09/04/2011 110.4 Derm atophytosis Of Foot 09/04/2011 276.51 Deh ydration 09/04/2011 527.7 Dist urbance Of Salivary Secretion 09/04/2011 530.81 Eso phageal Reflux 09/04/2011 686.9 Unsp ecified Local Infection Of Skin And Subcutaneous Tissue 09/04/2011 724.2 Lumbago 09/04/2011 NILSON IRWIN APRN 110.4 Dermatophytosis Of Foot 09/04/2011 NILSON IRWIN APRN 276.51 Dehydration 09/04/2011 NILSON IRWIN APRN 527.7 Disturbance Of Salivary Secretion 09/04/2011 NILSON IRWIN APRN 530.81 Esophageal Reflux 09/04/2011 NILSON IRWIN APRN 686.9 Unspecified Local Infection Of Skin And Subcutaneous T issue 09/04/2011 NILSON IRWIN APRN 724.2 Lumbago 09/04/2011 NAVEEN BANKS R 110.4 Dermatophytosis Of Foot 09/04/2011 BRIGITTE JOLLY, NAVEEN R 276.51 Dehydration 09/04/2011 NAVEEN BANKS R 527.7 Disturbance Of Salivary Secretion 09/04/2011 YVONNE BANKSELA R 530.81 Esophageal Reflux 09/04/2011 YVONNE BANKSELA R 686.9 Unspecified Local Infection Of Skin And Subcutaneous T issue 09/04/2011 NAVEEN BANKS R 724.2 Lumbago 09/04/2011 VINITA BARBOSA DO 110.4 Dermatophytosis Of Foot 09/04/2011 BARBOSA DO, VINITA K 276.51 Dehydration 09/04/2011 BARBOSA DO, VINITA K 527.7 Disturbance Of Salivary Secretion 09/04/2011 BARBOSA DO, VINITA K 530.81 Esophageal Reflux 09/04/2011 BARBOSA DO, VINITA K 686.9 Unspecified Local Infection Of Skin And Subcutaneous Tissue 09/04/2011 BARBOSA DO, VINITA K 724.2 Lumbago 09/04/2011 110.4 Derm atophytosis Of Foot 09/04/2011 276.51 Deh ydration 09/04/2011 527.7 Dist urbance Of Salivary Secretion 09/04/2011 530.81 Eso phageal Reflux 09/04/2011 686.9 Unsp ecified Local Infection Of Skin And Subcutaneous Tissue 09/04/2011 724.2 Lumbago 09/04/2011 BRIGITTE YAPCSYVONNENAVEEN R 110.4 Dermatophytosis Of Foot 09/04/2011 BRIGITTE [facility], NAVEEN R 276.51 Dehydration 09/04/2011 BRIGITTE LSCSYVONNENAVEEN R 527.7 Disturbance Of Salivary Secretion 09/04/2011 BRIGITTE [facility] NAVEEN R 530.81 Esophageal Reflux 09/04/2011 BRIGITTE [facility] NAVEEN R 686.9 Unspecified Local Infection Of Skin And Subcutaneous T issue 09/04/2011 BRIGITTE LSCSYVONNENAVEEN R 724.2 Lumbago 09/04/2011 SONYA WHITAKER MD 110.4 Dermatophytosis Of Foot 09/04/2011 SONYA WHITAKER MD 276.5 1 Dehydration 09/04/2011 SONYA WHITAKER MD 527.7 Disturbance Of Salivary Secretion 09/04/2011 SONYA WHITAKER MD 530.8 1 Esophageal Reflux 09/04/2011 SONYA WHITAKER MD 686.9 Unspecified Local Infection Of Skin And Subcutaneous Tissue 09/04/2011 SONYA WHITAKER MD 724.2 Lumbago 09/04/2011 BARBOSA DO, VINITA K 110.4 Dermatophytosis Of Foot 09/04/2011 BARBOSA DO, VINITA K 276.51 Dehydration 09/04/2011 BARBOSA DO, VINITA K 527.7 Disturbance Of Salivary Secretion 09/04/2011 BARBOSA DO, VINITA K 530.81 Esophageal Reflux 09/04/2011 BARBOSA DO VINITA K 686.9 Unspecified Local Infection Of Skin And Subcutaneous Tissue 09/04/2011 BARBOSA DO, VINITA K 724.2 Lumbago 09/04/2011 RANDALL 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, DIANE 110 .4 Dermatophytosis Of Foot 09/04/2011 RANDALL 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, DIANE 276 .51 Dehydration 09/04/2011 RANDALL 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, DIANE 527 .7 Disturbance Of Salivary Secretion 09/04/2011 RANDALL 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, DIANE 530 .81 Esophageal Reflux 09/04/2011 RANDALL 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, DIANE 686 .9 Unspecified Local Infection Of Skin And Subcutaneous Tissue 09/04/2011 RANDALL 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, DIANE 724 .2 Lumbago 09/04/2011 RANDALL 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, DIANE 110 .4 Dermatophytosis Of Foot 09/04/2011 RANDALL 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, DIANE 276 .51 Dehydration 09/04/2011 RANDALL 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, DIANE 527 .7 Disturbance Of Salivary Secretion 09/04/2011 RANDALL 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, DIANE 530 .81 Esophageal Reflux 09/04/2011 RANDALL 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, DIANE 686 .9 Unspecified Local Infection Of Skin And Subcutaneous Tissue 09/04/2011 RANDALL REESE, DIANE 724 .2 Lumbago 09/04/2011 BARBARA REESE, FATOU R 110.4 Dermatophytosis Of Foot 09/04/2011 BARBARA REESE FATOU R 276.51 Dehydration 09/04/2011 BARBARA REESE FATOU R 527.7 Disturbance Of Salivary Secretion 09/04/2011 BARBARA REESE FATOU R 530.81 Esophageal Reflux 09/04/2011 BARBARA REESE FATOU R 686.9 Unspecified Local Infection Of Skin And Subcutaneous T issue 09/04/2011 BARBARA REESE FATOU R 724.2 Lumbago 09/04/2011 BARBOSA DO, VINITA K 110.4 Dermatophytosis Of Foot 09/04/2011 BARBOSA DO, VINITA K 276.51 Dehydration 09/04/2011 BARBOSA DO, VINITA K 527.7 Disturbance Of Salivary Secretion 09/04/2011 BARBOSA DO, VINITA K 530.81 Esophageal Reflux 09/04/2011 BARBOSA DO, VINITA K 686.9 Unspecified Local Infection Of Skin And Subcutaneous Tissue 09/04/2011 BARBOSA DO, VINITA K 724.2 Lumbago 09/04/2011 R[employer] 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, DIANE 110 .4 Dermatophytosis Of Foot 09/04/2011 DIANE PEREIRA APRN 276 .51 Dehydration 09/04/2011 RANDALL REESE DIANE 527 .7 Disturbance Of Salivary Secretion 09/04/2011 RANDALL REESE DIANE 530 .81 Esophageal Reflux 09/04/2011 RANDALL REESE DIANE 686 .9 Unspecified Local Infection Of Skin And Subcutaneous Tissue 09/04/2011 SAM PEREIRA APRNETTE 724 .2 Lumbago 09/04/2011 CARLO NGUYEN APRN 110. 4 Dermatophytosis Of Foot 09/04/2011 CARLO NGUYEN APRN 276. 51 Dehydration 09/04/2011 CARLO NGUYEN APRN 527. 7 Disturbance Of Salivary Secretion 09/04/2011 CARLO NGUYEN APRN 530. 81 Esophageal Reflux 09/04/2011 CARLO NGUYEN APRN 686. 9 Unspecified Local Infection Of Skin And Subcutaneous Tissue 09/04/2011 CARLO NGUYEN APRN 724. 2 Lumbago 09/04/2011 DIANE PEREIRA APRN 110 .4 Dermatophytosis Of Foot 09/04/2011 SAM PEREIRA APRNETTE 276 .51 Dehydration 09/04/2011 DIANE PEREIRA APRN 527 .7 Disturbance Of Salivary Secretion 09/04/2011 DIANE PEREIRA APRN 530 .81 Esophageal Reflux 09/04/2011 DIANE PEREIRA APRN 686 .9 Unspecified Local Infection Of Skin And Subcutaneous Tissue 09/04/2011 DIANE PEREIRA APRN 724 .2 Lumbago 09/04/2011 BARBOSA DO, VINITA K 110.4 Dermatophytosis Of Foot 09/04/2011 BARBOSA DO, VINITA K 276.51 Dehydration 09/04/2011 BARBOSA DO, VINITA K 527.7 Disturbance Of Salivary Secretion 09/04/2011 BARBOSA DO, VINITA K 530.81 Esophageal Reflux 09/04/2011 BARBOSA DO, VINITA K 686.9 Unspecified Local Infection Of Skin And Subcutaneous Tissue 09/04/2011 BARBOSA DO, VINITA K 724.2 Lumbago 09/04/2011 BARBOSA DO, VINITA K 110.4 Dermatophytosis Of Foot 09/04/2011 BARBOSA DO, VINITA K 276.51 Dehydration 09/04/2011 BARBOSA DO, VINITA K 527.7 Disturbance Of Salivary Secretion 09/04/2011 VINITA BARBOSA DO 530.81 Esophageal Reflux 09/04/2011 VINITA BARBOSA DO 686.9 Unspecified Local Infection Of Skin And Subcutaneous Tissue 09/04/2011 VINITA BARBOSA DO 724.2 Lumbago 2011 Ot 724.2 LUMBAGO 2011 Ot V57.1 PHYS ICAL THERAPY NEC 02/10/2012 Ot 922.4 CONT USION GENITAL ORGANS 02/10/2012 Ot E000.8 OTH ER EXTERNAL CAUSE STATUS 02/10/2012 Ot E029.9 OT ER ACTIVITY 02/10/2012 Ot E849.0 ACC IDENT IN HOME 02/10/2012 Ot E928.9 ACC IDENT NOS 03/01/2012 VINITA BARBOSA DO 454.9 ASYMPTOMATIC VARICOSE VEINS 03/01/2012 VINITA BARBOSA DO 698.9 UNSPECIFIED PRURITIC DISORDER 03/01/2012 VINITA BARBOSA DO 752.69 OTHER PENILE ANOMALIES 03/01/2012 VINITA BARBOSA DO 782.62 FLUSHING 03/01/2012 VINITA BARBOSA DO V58.69 LONG-TERM (CURRENT) USE OF OTHER MEDICATIONS 03/01/2012 JOVITA MURRAY DO 454 .9 ASYMPTOMATIC VARICOSE VEINS 03/01/2012 JOVITA MURRAY DO 698 .9 Unspecified Pruritic Disorder 03/01/2012 JOVITA MURRAY DO 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 03/01/2012 OJVITA MURRAY DO 782 .62 Flushing 03/01/2012 JOVITA MURRAY DO V58 .69 LONG-TERM (CURRENT) USE OF OTHER MEDICATIONS 03/01/2012 NILSON IRWIN APRN 454.9 ASYMPTOMATIC VARICOSE VEINS 03/01/2012 NILSON IRWIN APRN 698.9 Unspecified Pruritic Disorder 03/01/2012 NILSON IRWIN APRN 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 03/01/2012 NILSON IRWIN APRN 782.62 Flushing 03/01/2012 NILSON IRWIN APRN V58.69 LONG-TERM (CURRENT) USE OF OTHER MEDICATIONS 03/01/2012 CHARISSE GUTIERREZ PA-C 454.9 ASYMPTOMATIC VARICOSE VEINS 03/01/2012 CHARISSE GUTIERREZ PA-C 698.9 Unspecified Pruritic Disorder 03/01/2012 CHARISSE GUTIERREZ PA-C 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 03/01/2012 CHARISSE GUTIERREZ PA-C 782.62 Flushing 03/01/2012 CHARISSE GUTIERREZ PA-C V58.69 LONG-TERM (CURRENT) USE OF OTHER MEDICATIONS 03/01/2012 454.9 ASYM PTOMATIC VARICOSE VEINS 03/01/2012 698.9 Unsp ecified Pruritic Disorder 03/01/2012 752.69 Oth er Penile Anomalies 03/01/2012 782.62 Flu shing 03/01/2012 V58.69 WILTON G-TERM (CURRENT) USE OF OTHER MEDICATIONS 03/01/2012 454.9 ASYM PTOMATIC VARICOSE VEINS 03/01/2012 698.9 Unsp ecified Pruritic Disorder 03/01/2012 752.69 Oth er Penile Anomalies 03/01/2012 782.62 Flu shing 03/01/2012 V58.69 WILTON G-TERM (CURRENT) USE OF OTHER MEDICATIONS 03/01/2012 454.9 ASYM PTOMATIC VARICOSE VEINS 03/01/2012 698.9 Unsp ecified Pruritic Disorder 03/01/2012 752.69 Oth er Penile Anomalies 03/01/2012 782.62 Flu shing 03/01/2012 V58.69 WILTON G-TERM (CURRENT) USE OF OTHER MEDICATIONS 03/01/2012 454.9 ASYM PTOMATIC VARICOSE VEINS 03/01/2012 698.9 Unsp ecified Pruritic Disorder 03/01/2012 752.69 Oth er Penile Anomalies 03/01/2012 782.62 Flu shing 03/01/2012 V58.69 WILTON G-TERM (CURRENT) USE OF OTHER MEDICATIONS 03/01/2012 NILSON IRWIN APRN 454.9 ASYMPTOMATIC VARICOSE VEINS 03/01/2012 NILSON IRWIN APRN 698.9 Unspecified Pruritic Disorder 03/01/2012 NILSON IRWIN APRN 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9 Unspecified Pruritic Disorder 03/01/2012 BARBOSA DO, VINITA K 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 03/01/2012 BARBOSA DO, VINITA K 782.62 Flushing 03/01/2012 BARBOSA DO, VINITA K V58.69 LONG-TERM (CURRENT) USE OF OTHER MEDICATIONS 03/01/2012 454.9 ASYM PTOMATIC VARICOSE VEINS 03/01/2012 698.9 Unsp ecified Pruritic Disorder 03/01/2012 752.69 Oth er Penile Anomalies 03/01/2012 782.62 Flu shing 03/01/2012 V58.69 WILTON G-TERM (CURRENT) USE OF OTHER MEDICATIONS 03/01/2012 [facility], NAVEEN R 454.9 ASYMPTOMATIC VARICOSE VEINS 03/01/2012 [facility] 698.9 Unspecified Pruritic Disorder 03/01/2012 [facility], NAVEEN R 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 03/01/2012 [facility], NAVEEN R 782.62 Flushing 03/01/2012 [facility], NAVEEN R V58.69 LONG-TERM (CURRENT) USE OF OTHER MEDICATIONS 03/01/2012 SONYA WHITAKER MD 454.9 ASYMPTOMATIC VARICOSE VEINS 03/01/2012 SONYA WHITAKER MD 698.9 Unspecified Pruritic Disorder 03/01/2012 SONYA WHITAKER MD 752.6 9 Other Penile Anomalies 03/01/2012 SONYA WHITAKER MD 782.6 2 Flushing 03/01/2012 SONYA WHITAKER MD V58.6 9 LONG-TERM (CURRENT) USE OF OTHER MEDICATIONS 03/01/2012 BARBOSA DO, VINITA K 454.9 ASYMPTOMATIC VARICOSE VEINS 03/01/2012 BARBOSA DO, VINITA K 698.9 Unspecified Pruritic Disorder 03/01/2012 BARBOSA DO, VINITA K 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 03/01/2012 BARBOSA DO, VINITA K 782.62 Flushing 03/01/2012 BARBOSA DO, VINITA K V58.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 03/01/2012 RAND[employer] 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, DIANE 782 .62 Flushing 03/01/2012 RAND[employer] 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, DIANE V58 .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 03/01/2012 RAND[employer] 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, DIANE 782 .62 Flushing 03/01/2012 RAND[employer] 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, DIANE V58 .69 LONG-TERM (CURRENT) USE OF OTHER MEDICATIONS 03/01/2012 BARBARA 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, FATOU R 454.9 ASYMPTOMATIC VARICOSE VEINS 03/01/2012 BARBARA 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, FATOU R 698.9 Unspecified Pruritic Disorder 03/01/2012 BARBAR[employer] 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, FATOU R 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 03/01/2012 [employer] 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, FATOU R 782.62 Flushing 03/01/2012 BARBARA 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, FATOU R V58.69 LONG-TERM (CURRENT) USE OF OTHER MEDICATIONS 03/01/2012 BARBOSA DO, VINITA K 454.9 ASYMPTOMATIC VARICOSE VEINS 03/01/2012 BARBOSA DO, VINITA K 698.9 Unspecified Pruritic Disorder 03/01/2012 BARBOSA DO, VINITA K 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 03/01/2012 BARBOSA DO, VINITA K 782.62 Flushing 03/01/2012 BARBOSA DO, VINITA K V58.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 9 ASYMPTOMATIC VARICOSE VEINS 03/01/2012 NGUYEN 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JACKELYN BeckerON Parris 698. 9 Unspecified Pruritic Disorder 03/01/2012 NGUYEN JACKELYN REESEON Parris 752. 69 Other Penile Anomalies 03/01/2012 NGUYEN 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CARLO Becker 782. 62 Flushing 03/01/2012 NGUYEN CARLO REESE V58. 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 03/01/2012 RANDALL 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, DIANE 782 .62 Flushing 03/01/2012 RANDALL 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, DIANE V58 .69 LONG-TERM (CURRENT) USE OF OTHER MEDICATIONS 03/01/2012 BARBOSA DO, VINITA K 454.9 ASYMPTOMATIC VARICOSE VEINS 03/01/2012 BARBOSA DO, VINITA K 698.9 UNSPECIFIED PRURITIC DISORDER 03/01/2012 BARBOSA DO, VINITA K 752.69 OTHER PENILE ANOMALIES 03/01/2012 BARBOSA DO, VINITA K 782.62 FLUSHING 03/01/2012 BARBOSA DO, VINITA K V58.69 LONG-TERM (CURRENT) USE OF OTHER MEDICATIONS 03/01/2012 BARBOSA DO, VINITA K 454.9 ASYMPTOMATIC VARICOSE VEINS 03/01/2012 BARBOSA DO, VINITA K 698.9 Unspecified Pruritic Disorder 03/01/2012 BARBOSA DO, VINITA K 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 03/01/2012 BARBOSA DO, VINITA K 782.62 Flushing 03/01/2012 VINITA BARBOSA DO V58.69 LONG-TERM (CURRENT) USE OF OTHER MEDICATIONS 03/19/2012 VINITA BARBOSA DO 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 03/19/2012 MALORIEDENISE DO JOVITA F 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 03/19/2012 NILSON IRWIN APRN 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 03/19/2012 CHARISSE GUTIERREZ PA-C 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 03/19/2012 608.4 Othe r Inflammatory Disorders Of Male Genital Organs 03/19/2012 608.4 Othe r Inflammatory Disorders Of Male Genital Organs 03/19/2012 608.4 Othe r Inflammatory Disorders Of Male Genital Organs 03/19/2012 608.4 Othe r Inflammatory Disorders Of Male Genital Organs 03/19/2012 NILSON IRWIN APRN 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 03/19/2012 [facility], NAVEEN R 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 03/19/2012 VINITA BARBOSA DO 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 03/19/2012 608.4 Othe r Inflammatory Disorders Of Male Genital Organs 03/19/2012 [facility], NAVEEN R 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 03/19/2012 SONYA WHITAKER MD 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 03/19/2012 VINITA BARBOSA DO 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 03/25/2012 ZEENAT BARBOSA DOA K 709.2 SCAR CONDITIONS AND FIBROSIS OF SKIN 03/25/2012 CHELSEY MARROQUINZEENATA K 729.5 PAIN IN LIMB 03/25/2012 ZEENAT BARBOSA DOA K 780.79 fatigue 03/25/2012 EZENAT BARBOSA DOA K 783.1 ABNORMAL WEIGHT GAIN 03/25/2012 ZEENAT BARBOSA DOA K 787.3 FLATULENCE ERUCTATION AND GAS PAIN 03/25/2012 TREVOR JOVITA MARROQUIN F 709 .2 Scar Conditions And Fibrosis Of Skin 03/25/2012 JOVITA MURRAY DO F 729 .5 Pain In Limb 03/25/2012 JOVITA MURRAY DO F 780 .79 Fatigue 03/25/2012 JOVITA MURRAY DO F 783 .1 Abnormal Weight Gain 03/25/2012 JOVITA MURRAY DO F 787 .3 Flatulence Eructation And Gas Pain 03/25/2012 NILSON IRWIN APRN 709.2 Scar Conditions And Fibrosis Of Skin 03/25/2012 NILSON IRWIN APRN 729.5 Pain In Limb 03/25/2012 NILSON IRWIN APRN 780.79 Fatigue 03/25/2012 NILSON IRWIN APRN 783.1 Abnormal Weight Gain 03/25/2012 NILSON IRWIN APRN 787.3 Flatulence Eructation And Gas Pain 03/25/2012 CHARISSE GUTIERREZ PA-C 709.2 Scar Conditions And Fibrosis Of Skin 03/25/2012 CHARISSE GUTIERREZ PA-C 729.5 Pain In Limb 03/25/2012 CHARISSE GUTIERREZ PA-C 780.79 Fatigue 03/25/2012 CHARISSE GUTIERREZ PA-C 783.1 Abnormal Weight Gain 03/25/2012 CHARISSE GUTIERREZ PA-C 787.3 Flatulence Eructation And Gas Pain 03/25/2012 709.2 Scar Conditions And Fibrosis Of Skin 03/25/2012 729.5 Pain In Limb 03/25/2012 780.79 Fatigue 03/25/2012 783.1 Abno rmal Weight Gain 03/25/2012 787.3 Flat ulence Eructation And Gas Pain 03/25/2012 709.2 Scar Conditions And Fibrosis Of Skin 03/25/2012 729.5 Pain In Limb 03/25/2012 780.79 Fatigue 03/25/2012 783.1 Abno rmal Weight Gain 03/25/2012 787.3 Flat ulence Eructation And Gas Pain 03/25/2012 709.2 Scar Conditions And Fibrosis Of Skin 03/25/2012 729.5 Pain In Limb 03/25/2012 780.79 Fatigue 03/25/2012 783.1 Abno rmal Weight Gain 03/25/2012 787.3 Flat ulence Eructation And Gas Pain 03/25/2012 709.2 Scar Conditions And Fibrosis Of Skin 03/25/2012 729.5 Pain In Limb 03/25/2012 780.79 Fatigue 03/25/2012 783.1 Abno rmal Weight Gain 03/25/2012 787.3 Flat ulence Eructation And Gas Pain 03/25/2012 NILSON IRWIN APRN 709.2 Scar Conditions And Fibrosis Of Skin 03/25/2012 NILSON IRWIN APRN 729.5 Pain In Limb 03/25/2012 NILSON IRWIN APRN 780.79 Fatigue 03/25/2012 NILSON IRWIN APRN 783.1 Abnormal Weight Gain 03/25/2012 NILSON IRWIN APRN 787.3 Flatulence Eructation And Gas Pain 03/25/2012 [facility]2 Scar Conditions And Fibrosis Of Skin 03/25/2012 [facility] 729.5 Pain In Limb 03/25/2012 [facility] 780.79 Fatigue 03/25/2012 [facility] 783.1 Abnormal Weight Gain 03/25/2012 [facility], NAVEEN R 787.3 Flatulence Eructation And Gas Pain 03/25/2012 VINITA BARBOSA DO 709.2 Scar Conditions And Fibrosis Of Skin 03/25/2012 BARBOSA DO, VINITA K 729.5 Pain In Limb 03/25/2012 BARBOSA DO, VINITA K 780.79 Fatigue 03/25/2012 BARBOSA DO, VINITA K 783.1 Abnormal Weight Gain 03/25/2012 BARBOSA DO, VINITA K 787.3 Flatulence Eructation And Gas Pain 03/25/2012 709.2 Scar Conditions And Fibrosis Of Skin 03/25/2012 729.5 Pain In Limb 03/25/2012 780.79 Fatigue 03/25/2012 783.1 Abno rmal Weight Gain 03/25/2012 787.3 Flat ulence Eructation And Gas Pain 03/25/2012 [facility], NAVEEN R 709.2 Scar Conditions And Fibrosis Of Skin 03/25/2012 [facility], NAVEEN R 729.5 Pain In Limb 03/25/2012 [facility], NAVEEN R 780.79 Fatigue 03/25/2012 [facility], NAVEEN R 783.1 Abnormal Weight Gain 03/25/2012 [facility], NAVEEN R 787.3 Flatulence Eructation And Gas Pain 03/25/2012 SONYA WHITAKER MD 709.2 Scar Conditions And Fibrosis Of Skin 03/25/2012 SONYA WHITAKER MD 729.5 Pain In Limb 03/25/2012 SONYA WHITAKER MD 780.7 9 Fatigue 03/25/2012 SONYA WHITAKER MD 783.1 Abnormal Weight Gain 03/25/2012 SONYA WHITAKER MD 787.3 Flatulence Eructation And Gas Pain 03/25/2012 ZEENAT BARBOSA DOA K 709.2 Scar Conditions And Fibrosis Of Skin 03/25/2012 CHELSEY MARROQUIN VINITA K 729.5 Pain In Limb 03/25/2012 [facility] DO, VINITA K 780.79 Fatigue 03/25/2012 BARBOSA DO VINITA K 783.1 Abnormal Weight Gain 03/25/2012 BARBOSA DO VINITA K 787.3 Flatulence Eructation And Gas Pain 03/25/2012 RANDALL REESE DIANE 709 .2 Scar Conditions And Fibrosis Of Skin 03/25/2012 RANDALL 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, DIANE 729 .5 Pain In Limb 03/25/2012 RANDALL 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, DIANE 780 .79 Fatigue 03/25/2012 RANDALL 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, DIANE 783 .1 Abnormal Weight Gain 03/25/2012 RANDALL REESE, DIANE 787 .3 Flatulence Eructation And Gas Pain 03/25/2012 RANDALL REESE, DIANE 709 .2 Scar Conditions And Fibrosis Of Skin 03/25/2012 RANDALL REESE, DIANE 729 .5 Pain In Limb 03/25/2012 RANDALL REESE, DIANE 780 .79 Fatigue 03/25/2012 RANDALL HUGH, DIANE 783 .1 Abnormal Weight Gain 03/25/2012 RANDALL REESE, DIANE 787 .3 Flatulence Eructation And Gas Pain 03/25/2012 BARBARA REESE, AFTOU R 709.2 Scar Conditions And Fibrosis Of Skin 03/25/2012 BARBARA 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, FATOU R 729.5 Pain In Limb 03/25/2012 BARBARA REESE, FATOU R 780.79 Fatigue 03/25/2012 BARBARA 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, FATOU R 783.1 Abnormal Weight Gain 03/25/2012 BARBARA REESE, FATOU R 787.3 Flatulence Eructation And Gas Pain 03/25/2012 ZEENAT BARBOSA DOA K 709.2 Scar Conditions And Fibrosis Of Skin 03/25/2012 CHELSEY MARROQUIN VINITA K 729.5 Pain In Limb 03/25/2012 BARBOSA DO VINITA K 780.79 Fatigue 03/25/2012 CHELSEY MARROQUIN VINITA K 783.1 Abnormal Weight Gain 03/25/2012 CHELSEY MARROQUIN VINITA K 787.3 Flatulence Eructation And Gas Pain 03/25/2012 RANDALL REESE, DIANE 709 .2 Scar Conditions And Fibrosis Of Skin 03/25/2012 RANDALL REESE DIANE 729 .5 Pain In Limb 03/25/2012 RANDALL REESE, DIANE 780 .79 Fatigue 03/25/2012 RANDALL REESE, DIANE 783 .1 Abnormal Weight Gain 03/25/2012 RANDALL REESE, DIANE 787 .3 Flatulence Eructation And Gas Pain 03/25/2012 CARLO NGUYEN APRN 709. 2 Scar Conditions And Fibrosis Of Skin 03/25/2012 CARLO NGUYEN APRN 729. 5 Pain In Limb 03/25/2012 CARLO NGUYEN APRN 780. 79 Fatigue 03/25/2012 CARLO NGUYEN APRN 783. 1 Abnormal Weight Gain 03/25/2012 CARLO NGUYEN APRN 787. 3 Flatulence Eructation And Gas Pain 03/25/2012 RANDALL REESE DIANE 709 .2 Scar Conditions And Fibrosis Of Skin 03/25/2012 RANDALL REESE DIANE 729 .5 Pain In Limb 03/25/2012 RANDALL 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, DIANE 780 .79 Fatigue 03/25/2012 RANDALL 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, DIANE 783 .1 Abnormal Weight Gain 03/25/2012 RANDALL REESE DIANE 787 .3 Flatulence Eructation And Gas Pain 03/25/2012 [facility]ROS[facility] DO, VINITA K 709.2 SCAR CONDITIONS AND FIBROSIS OF SKIN 03/25/2012 BARBOSA DO, VINITA K 729.5 PAIN IN LIMB 03/25/2012 [facility] DO, VINITA K 780.79 fatigue 03/25/2012 [facility] DO, VINITA K 783.1 ABNORMAL WEIGHT GAIN 03/25/2012 [facility] DO, VINITA K 787.3 FLATULENCE ERUCTATION AND GAS PAIN 03/25/2012 [facility] DO, VINITA K 709.2 Scar Conditions And Fibrosis Of Skin 03/25/2012 [facility] DO, VINITA K 729.5 Pain In Limb 03/25/2012 [facility] DO, VINITA K 780.79 Fatigue 03/25/2012 BARBOSA DO, VINITA K 783.1 Abnormal Weight Gain 03/25/2012 BARBOSA DO, VINITA K 787.3 Flatulence Eructation And Gas Pain 06/17/2012 BARBOSA DO, VINITA K V69.2 HIGH-RISK SEXUAL BEHAVIOR 06/17/2012 BARBOSA DO, VINITA K V70.0 ROUTINE GENERAL MEDICAL EXAMINATION AT A HEALTH CARE FACILITY 06/17/2012 JOVITA MURRAY DO V69 .2 HIGH-RISK SEXUAL BEHAVIOR 06/17/2012 JOVITA MURRAY DO V70 .0 ROUTINE GENERAL MEDICAL EXAMINATION AT A HEALTH CARE FACILITY 06/17/2012 NILSON IRWIN APRN V69.2 HIGH-RISK SEXUAL BEHAVIOR 06/17/2012 NILSON IRWIN APRN V70.0 ROUTINE GENERAL MEDICAL EXAMINATION AT A [facility] 06/17/2012 CHARISSE GUTIERREZ PA-C V69.2 HIGH-RISK SEXUAL BEHAVIOR 06/17/2012 CHARISSE GUTIERREZ PA-C V70.0 ROUTINE GENERAL MEDICAL EXAMINATION AT A HEALTH CARE [facility] 06/17/2012 V69.2 HIGH -RISK SEXUAL BEHAVIOR 06/17/2012 V70.0 ROUT INE GENERAL MEDICAL EXAMINATION AT A HEALTH CARE FACILITY 06/17/2012 V69.2 HIGH -RISK SEXUAL BEHAVIOR 06/17/2012 V70.0 ROUT INE GENERAL MEDICAL EXAMINATION AT A HEALTH CARE FACILITY 06/17/2012 V69.2 HIGH -RISK SEXUAL BEHAVIOR 06/17/2012 V70.0 ROUT INE GENERAL MEDICAL EXAMINATION AT A HEALTH CARE FACILITY 06/17/2012 V69.2 HIGH -RISK SEXUAL BEHAVIOR 06/17/2012 V70.0 ROUT INE GENERAL MEDICAL EXAMINATION AT A HEALTH CARE FACILITY 06/17/2012 NILSON IRWIN APRN V69.2 HIGH-RISK SEXUAL BEHAVIOR 06/17/2012 NILSON IRWIN APRN V70.0 ROUTINE GENERAL MEDICAL EXAMINATION AT A [facility]RISK [facility]/17/[facility]OUTINE GENERAL MEDICAL EXAMINATION AT A [facility] 06/17/2012 VINITA BARBOSA DO V69.2 HIGH-RISK SEXUAL BEHAVIOR 06/17/2012 VINITA BARBOSA DO V70.0 ROUTINE GENERAL MEDICAL EXAMINATION AT A HEALTH CARE FACILITY 06/17/2012 V69.2 HIGH -RISK SEXUAL BEHAVIOR 06/17/2012 V70.0 ROUT INE GENERAL MEDICAL EXAMINATION AT A HEALTH CARE FACILITY 06/17/[facility] HIGH-RISK SEXUAL BEHAVIOR 06/17/[facility] ROUTINE GENERAL MEDICAL EXAMINATION AT A HEALTH CARE [facility] 06/17/2012 SONYA WHITAKER MD V69.2 HIGH-RISK SEXUAL BEHAVIOR 06/17/2012 SONYA WHITAKER MD V70.0 ROUTINE GENERAL MEDICAL EXAMINATION AT A HEALTH CARE FACILITY 06/17/2012 VINITA BARBOSA DO V69.2 HIGH-RISK SEXUAL BEHAVIOR 06/17/2012 VINITA BARBOSA DO V70.0 ROUTINE GENERAL MEDICAL EXAMINATION AT A HEALTH CARE FACILITY 06/17/2012 DIANE PEREIRA APRN V69 .2 HIGH-RISK SEXUAL BEHAVIOR 06/17/2012 DIANE PEREIRA APRN V70 .0 ROUTINE GENERAL MEDICAL EXAMINATION AT A HEALTH CARE FACILITY 06/17/2012 DIANE PEREIRA APRN V69 .2 HIGH-RISK SEXUAL BEHAVIOR 06/17/2012 DIANE PEREIRA APRN V70 .0 ROUTINE GENERAL MEDICAL EXAMINATION AT A HEALTH CARE FACILITY 06/17/2012 BARBARA REESE FATOU R V69.2 HIGH-RISK SEXUAL BEHAVIOR 06/17/2012 BARBARA 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, FATOU R V70.0 ROUTINE GENERAL MEDICAL EXAMINATION AT A HEALTH CARE [facility] 06/17/2012 VINITA BARBOSA DO K V69.2 HIGH-RISK SEXUAL BEHAVIOR 06/17/2012 VINITA BARBOSA DO K V70.0 ROUTINE GENERAL MEDICAL EXAMINATION AT A HEALTH CARE FACILITY 06/17/2012 DIANE PEREIRA APRN V69 .2 HIGH-RISK SEXUAL BEHAVIOR 06/17/2012 IDANE PEREIRA APRN V70 .0 ROUTINE GENERAL MEDICAL EXAMINATION AT A HEALTH CARE FACILITY 06/17/2012 CARLO NGUYEN APRN V69. 2 HIGH-RISK SEXUAL BEHAVIOR 06/17/2012 CARLO NGUYEN APRN V70. 0 ROUTINE GENERAL MEDICAL EXAMINATION AT A HEALTH CARE FACILITY 06/17/2012 DIANE PEREIRA APRN V69 .2 HIGH-RISK SEXUAL BEHAVIOR 06/17/2012 DIANE PEREIRA APRN V70 .0 ROUTINE GENERAL MEDICAL EXAMINATION AT A HEALTH CARE FACILITY 06/17/2012 VINITA BARBOSA DO K V69.2 HIGH-RISK SEXUAL BEHAVIOR 06/17/2012 VINITA BARBOSA DO K V70.0 ROUTINE GENERAL MEDICAL EXAMINATION AT A HEALTH CARE FACILITY 06/17/2012 VINITA BARBOSA DO K V69.2 HIGH-RISK SEXUAL BEHAVIOR 06/17/2012 VINITA BARBOSA DO K V70.0 ROUTINE GENERAL MEDICAL EXAMINATION AT A HEALTH CARE FACILITY 06/26/2012 Ot 724.2 LUMBAGO 06/26/2012 Ot V57.1 PHYS ICAL THERAPY NEC 10/11/2012 VINITA BARBOSA DO 110.1 DERMATOPHYTOSIS OF NAIL 10/11/2012 VINITA BARBOSA DO 785.6 ENLARGEMENT OF LYMPH NODES 10/11/2012 JOVITA MURRAY DO 110 .1 DERMATOPHYTOSIS OF NAIL 10/11/2012 JOVITA MURRAY DO 785 .6 Enlargement Of Lymph Nodes 10/11/2012 NILSON IRWIN APRN 110.1 DERMATOPHYTOSIS OF NAIL 10/11/2012 NILSON IRWIN APRN 785.6 Enlargement Of Lymph Nodes 10/11/2012 CHARISSE GUTIERREZ PA-C 110.1 DERMATOPHYTOSIS OF NAIL 10/11/2012 CHARISSE GUTIERREZ PA-C 785.6 Enlargement Of Lymph Nodes 10/11/2012 110.1 DERM ATOPHYTOSIS OF NAIL 10/11/2012 785.6 Enla rgement Of Lymph Nodes 10/11/2012 110.1 DERM ATOPHYTOSIS OF NAIL 10/11/2012 785.6 Enla rgement Of Lymph Nodes 10/11/2012 110.1 DERM ATOPHYTOSIS OF NAIL 10/11/2012 785.6 Enla rgement Of Lymph Nodes 10/11/2012 110.1 DERM ATOPHYTOSIS OF NAIL 10/11/2012 785.6 Enla rgement Of Lymph Nodes 10/11/2012 NILSON IRWIN APRN 110.1 DERMATOPHYTOSIS OF NAIL 10/11/2012 NILSON IRWIN APRN 785.6 Enlargement Of Lymph Nodes 10/11/2012 [facility], NAVEEN R 110.1 DERMATOPHYTOSIS OF NAIL 10/11/2012 [facility], NAVEEN R 785.6 Enlargement Of Lymph Nodes 10/11/2012 VINITA BARBOSA DO K 110.1 DERMATOPHYTOSIS OF NAIL 10/11/2012 ZEENAT BARBOSA DOA K 785.6 Enlargement Of Lymph Nodes 10/11/2012 110.1 DERM ATOPHYTOSIS OF NAIL 10/11/2012 785.6 Enla rgement Of Lymph Nodes 10/11/2012 [facility], NAVEEN R 110.1 DERMATOPHYTOSIS OF NAIL 10/11/2012 [facility], NAVEEN R 785.6 Enlargement Of Lymph Nodes 10/11/2012 SONYA WHITAKER MD 110.1 DERMATOPHYTOSIS OF NAIL 10/11/2012 SONYA WHITAKER MD 785.6 Enlargement Of Lymph Nodes 10/11/2012 CHELSEY MARROQUIN VINITA K 110.1 DERMATOPHYTOSIS OF NAIL 10/11/2012 CHELSEY MARROQUIN VINITA K 785.6 Enlargement Of Lymph Nodes 10/11/2012 RANDALL REESE DIANE 110 .1 DERMATOPHYTOSIS OF NAIL 10/11/2012 RANDALL 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, DIANE 785 .6 Enlargement Of Lymph Nodes 10/11/2012 RANDALL 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, DIANE 110 .1 DERMATOPHYTOSIS OF NAIL 10/11/2012 RNADALL 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, DIANE 785 .6 Enlargement Of Lymph Nodes 10/11/2012 BARBARA 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, FATOU R 110.1 DERMATOPHYTOSIS OF NAIL 10/11/2012 BARBARA 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, FATOU R 785.6 Enlargement Of Lymph Nodes 10/11/2012 CHELSEY MARROQUIN VINITA K 110.1 DERMATOPHYTOSIS OF NAIL 10/11/2012 CHELSEY DO, VINITA K 785.6 Enlargement Of Lymph Nodes 10/11/2012 RANDALL 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, DIANE 110 .1 DERMATOPHYTOSIS OF NAIL 10/11/2012 RANDALL 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, DIANE 785 .6 Enlargement Of Lymph Nodes 10/11/2012 CARLO NGUYEN APRN D 110. 1 DERMATOPHYTOSIS OF NAIL 10/11/2012 CARLO NGUYEN APRN 785. 6 Enlargement Of Lymph Nodes 10/11/2012 RANDALLKAROLYN REESE, DIANE 110 .1 DERMATOPHYTOSIS OF NAIL 10/11/2012 RANDALL 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, DIANE 785 .6 Enlargement Of Lymph Nodes 10/11/2012 BARBOSA DO, VINITA K 110.1 DERMATOPHYTOSIS OF NAIL 10/11/2012 CHELSEY MARROQUIN, VINITA K 785.6 ENLARGEMENT OF LYMPH NODES 10/11/2012 CHELSEY MARROQUIN VINITA K 110.1 DERMATOPHYTOSIS OF NAIL 10/11/2012 CHELSEY MARROQUIN, VINITA K 785.6 Enlargement Of Lymph Nodes 12/27/2012 JOVITA MURRAY DO 780 .52 INSOMNIA UNSPECIFIED 12/27/2012 NILSON IRWIN APRN 780.52 INSOMNIA UNSPECIFIED 12/27/2012 CHARISSE GUTIERREZ PA-C 780.52 INSOMNIA UNSPECIFIED 12/27/2012 780.52 INS OMNIA UNSPECIFIED 12/27/2012 780.52 INS OMNIA UNSPECIFIED 12/27/2012 780.52 INS OMNIA UNSPECIFIED 12/27/2012 780.52 INS OMNIA UNSPECIFIED 12/27/2012 NILSON IRWIN APRN 780.52 INSOMNIA UNSPECIFIED 12/27/2012 [facility], NAVEEN Maciel 780.52 INSOMNIA UNSPECIFIED 12/27/2012 VINITA BARBOSA DO 780.52 INSOMNIA UNSPECIFIED 12/27/2012 780.52 INS OMNIA UNSPECIFIED 12/27/2012 [facility], NAVEEN R 780.52 INSOMNIA UNSPECIFIED 12/27/2012 SONYA WHITAKER MD 780.5 2 INSOMNIA UNSPECIFIED 12/27/2012 CHELSEY MARROQUIN VINITA K 780.52 INSOMNIA UNSPECIFIED 12/27/2012 RANDALL 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, DIANE 780 .52 INSOMNIA UNSPECIFIED 12/27/2012 RANDALL 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, DIANE 780 .52 INSOMNIA UNSPECIFIED 12/27/2012 BARBARA 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, FATOU R 780.52 INSOMNIA UNSPECIFIED 12/27/2012 BARB[facility] DO, VINITA K 780.52 INSOMNIA UNSPECIFIED 12/27/2012 RANDALL 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, DIANE 780 .52 INSOMNIA UNSPECIFIED 12/27/2012 CARLO NGUYEN APRN 780. 52 INSOMNIA UNSPECIFIED 12/27/2012 RANDALL 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, DIANE 780 .52 INSOMNIA UNSPECIFIED 12/27/2012 BARBOSA DO VINITA K 780.52 INSOMNIA UNSPECIFIED 03/13/2013 Ot 327.23 OBS TRUCTIVE SLEEP APNEA (ADULT) (PEDIATR 03/25/2013 MATT PETIT, CHARISSE Hutchins 780.57 SLEEP APNEA 03/25/2013 780.57 SLE EP APNEA 03/25/2013 780.57 SLE EP APNEA 03/25/2013 780.57 SLE EP APNEA 03/25/2013 780.57 SLE EP APNEA 03/25/2013 NILSON IRWIN APRN 780.57 SLEEP APNEA 03/25/2013 [facility], NAVEEN R 780.57 SLEEP APNEA 03/25/2013 ZEENAT BARBOSA DOA K 780.57 SLEEP APNEA 03/25/2013 780.57 SLE EP APNEA 03/25/2013 [facility], NAVEEN R 780.57 SLEEP APNEA 03/25/2013 SONYA WHITAKER MD 780.5 7 SLEEP APNEA 03/25/2013 BARBOSA DO VINITA K 780.57 SLEEP APNEA 03/25/2013 RANDALL 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, DIANE 780 .57 SLEEP APNEA 03/25/2013 RANDALL 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, DIANE 780 .57 SLEEP APNEA 03/25/2013 BARBARA 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, FATOU R 780.57 SLEEP APNEA 03/25/2013 BARBOSA DO VINITA K 780.57 SLEEP APNEA 03/25/2013 RANDALL 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, DIANE 780 .57 SLEEP APNEA 03/25/2013 CARLO NGUYEN APRN 780. 57 SLEEP APNEA 03/25/2013 RANDALL 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, DIANE 780 .57 SLEEP APNEA 03/25/2013 ZEENAT BARBOSA DOA K 780.57 SLEEP APNEA 08/28/2013 CHELSEY MARROQUIN VINITA K 244.9 UNSPECIFIED ACQUIRED HYPOTHYROIDISM 08/28/2013 244.9 UNSP ECIFIED ACQUIRED HYPOTHYROIDISM 08/28/2013 [facility], NAVEEN R 244.9 UNSPECIFIED ACQUIRED HYPOTHYROIDISM 08/28/2013 SONYA WHITAKER MD 244.9 UNSPECIFIED ACQUIRED HYPOTHYROIDISM 08/28/2013 ZEENAT BARBOSA DOA K 244.9 UNSPECIFIED ACQUIRED HYPOTHYROIDISM 08/28/2013 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, DIANE 244 .9 UNSPECIFIED ACQUIRED HYPOTHYROIDISM 08/28/2013 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 DIANE 244 .9 UNSPECIFIED ACQUIRED HYPOTHYROIDISM 08/28/2013 LISA JIMENEZ APRNINA R 244.9 UNSPECIFIED ACQUIRED HYPOTHYROIDISM 08/28/2013 ZEENAT BARBOSA DOA K 244.9 UNSPECIFIED ACQUIRED HYPOTHYROIDISM 08/28/2013 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, DIANE 244 .9 UNSPECIFIED ACQUIRED HYPOTHYROIDISM 08/28/2013 CARLO NGUYEN APRN 244. 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 35 MO DEPRESSIVE RECURRENT IN PART OR UNSPECIFIED REMISSION 04/14/2014 RANDALLKAROLYN REESE DIANE 296 .35 MO DEPRESSIVE RECURRENT IN PART OR UNSPECIFIED REMISSION 04/14/2014 VINITA BARBOSA DO 296.35 MO DEPRESSIVE RECURRENT IN PART OR UNSPECIFIED REMISSION 05/11/2014 VINITA BARBOSA DO 333.94 RESTLESS LEGS SYNDROME (RLS) 05/11/2014 VINITA BARBOSA DO 477.9 RHINITIS 05/11/2014 VINITA BARBOSA DO 719.47 PAIN IN JOINT INVOLVING ANKLE AND FOOT 05/11/2014 VINITA BARBOSA DO 787.3 FLATULENCE ERUCTATION AND GAS PAIN 05/11/2014 VINITA BARBOSA DO 845.00 UNSPECIFIED SITE OF ANKLE SPRAIN 05/11/2014 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, DIANE 333 .94 RESTLESS LEGS SYNDROME (RLS) 05/11/2014 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, DIANE 477 .9 RHINITIS 05/11/2014 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, DIANE 719 .47 PAIN IN JOINT INVOLVING ANKLE AND FOOT 05/11/2014 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, DIANE 787 .3 FLATULENCE ERUCTATION AND GAS PAIN 05/11/2014 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, DIANE 845 .00 UNSPECIFIED SITE OF ANKLE SPRAIN 05/11/2014 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, DIANE 333 .94 RESTLESS LEGS SYNDROME (RLS) 05/11/2014 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, DIANE 477 .9 RHINITIS 05/11/2014 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, DIANE 719 .47 PAIN IN JOINT INVOLVING ANKLE AND FOOT 05/11/2014 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, DIANE 787 .3 FLATULENCE ERUCTATION AND GAS PAIN 05/11/2014 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, DIANE 845 .00 UNSPECIFIED SITE OF ANKLE SPRAIN 05/11/2014 LISA JIMENEZ APRNINA R 333.94 RESTLESS LEGS SYNDROME (RLS) 05/11/2014 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 FATOU R 477.9 RHINITIS 05/11/2014 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, FATOU R 719.47 PAIN IN JOINT INVOLVING ANKLE AND FOOT 05/11/2014 BARBARA HUGH FATOU R 787.3 FLATULENCE ERUCTATION AND GAS PAIN 05/11/2014 BARBARA 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, FATOU R 845.00 UNSPECIFIED SITE OF ANKLE SPRAIN 05/11/2014 VINITA BARBOSA DO 333.94 RESTLESS LEGS SYNDROME (RLS) 05/11/2014 VINITA BARBOSA DO 477.9 RHINITIS 05/11/2014 VINITA BARBOSA DO 719.47 PAIN IN JOINT INVOLVING ANKLE AND FOOT 05/11/2014 BARBOSA DOZEENATA K 787.3 FLATULENCE ERUCTATION AND GAS PAIN 05/11/2014 ZEENAT BARBOSA DOA K 845.00 UNSPECIFIED SITE OF ANKLE SPRAIN 05/11/2014 RANDALL 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, DIANE 333 .94 RESTLESS LEGS SYNDROME (RLS) 05/11/2014 RANDALL 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, DIANE 477 .9 RHINITIS 05/11/2014 RANDALL 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, DIANE 719 .47 PAIN IN JOINT INVOLVING ANKLE AND FOOT 05/11/2014 RANDALL 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, DIANE 787 .3 FLATULENCE ERUCTATION AND GAS PAIN 05/11/2014 RANDALLKAROLYN REESE, DIANE 845 .00 UNSPECIFIED SITE OF ANKLE SPRAIN 05/11/2014 CARLO NGUYEN APRN 333. 94 RESTLESS LEGS SYNDROME (RLS) 05/11/2014 CARLO NGUYEN APRN 477. 9 RHINITIS 05/11/2014 CARLO NGUYEN APRN 719. 47 PAIN IN JOINT INVOLVING ANKLE AND FOOT 05/11/2014 CARLO NGUYEN APRN 787. 3 FLATULENCE ERUCTATION AND GAS PAIN 05/11/2014 CARLO NGUYEN APRN 845. 00 UNSPECIFIED SITE OF ANKLE SPRAIN 05/11/2014 RANDALL REESE DIANE 333 .94 RESTLESS LEGS SYNDROME (RLS) 05/11/2014 RANDALL REESE DIANE 477 .9 RHINITIS 05/11/2014 RANDALL REESE DIANE 719 .47 PAIN IN JOINT INVOLVING ANKLE AND FOOT 05/11/2014 RANDALL REESE DIANE 787 .3 FLATULENCE ERUCTATION AND GAS PAIN 05/11/2014 RANDALL 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, DIANE 845 .00 UNSPECIFIED SITE OF ANKLE SPRAIN 05/11/2014 VINITA BARBOSA DO 333.94 RESTLESS LEGS SYNDROME (RLS) 05/11/2014 BARBOSA VINITA MARROQUIN 477.9 RHINITIS 05/11/2014 BARBOSA VINITA MARROQUIN 719.47 PAIN IN JOINT INVOLVING ANKLE AND FOOT 05/11/2014 BARBOSA ZEENAT MARROQUINA K 787.3 FLATULENCE ERUCTATION AND GAS PAIN 05/11/2014 BARBOSA ZEENAT MARROQUINA K 845.00 UNSPECIFIED SITE OF ANKLE SPRAIN 10/17/2014 FATOU JIMENEZ APRN.44 PAIN IN JOINT INVOLVING HAND 10/17/2014 VINITA BARBOSA DO 719.44 PAIN IN JOINT INVOLVING HAND 10/17/2014 DIANE PEREIRA APRN 719 .44 PAIN IN JOINT INVOLVING HAND 10/17/2014 CARLO NGUYEN APRN 719. 44 PAIN IN JOINT INVOLVING HAND 10/17/2014 DIANE PEREIRA APRN 719 .44 PAIN IN JOINT INVOLVING HAND 10/17/2014 VINITA BARBOSA DO 719.44 PAIN IN JOINT INVOLVING HAND 11/02/2014 VIINTA BARBOSA DO K 724.3 SCIATICA 11/02/2014 VINITA BARBOSA DO 726.32 LATERAL EPICONDYLITIS [place]ION 11/02/2014 VINITA BARBOSA DO 727.03 TRIGGER FINGER (ACQUIRED) 11/02/2014 DIANE PEREIRA APRN 724 .3 SCIATICA 11/02/2014 DIANE PEREIRA APRN 726 .32 LATERAL EPICONDYLITIS [place] REG[place] 11/02/2014 DIANE PEREIRA APRN 727 .03 TRIGGER FINGER (ACQUIRED) 11/02/2014 CARLO NGUYEN APRN 724. 3 SCIATICA 11/02/2014 CARLO NGUYEN APRN 726. 32 LATERAL EPICONDYLITIS [place] REGION 11/02/2014 CARLO NGUYEN APRN 727. 03 TRIGGER FINGER (ACQUIRED) 11/02/2014 DIANE PEREIRA APRN 724 .3 SCIATICA 11/02/2014 DIANE PEREIRA APRN 726 .32 LATERAL EPICONDYLITIS [place] 11/02/2014 DIANE PEREIRA APRN 727 .03 TRIGGER FINGER (ACQUIRED) 11/02/2014 VINITA BARBOSA DO 724.3 SCIATICA 11/02/2014 VINITA BARBOSA DO 726.32 LATERAL EPICONDYLITIS [place] 11/02/2014 VINITA BARBOSA DO 727.03 TRIGGER FINGER (ACQUIRED) 12/01/2014 CARLO NGUYEN APRN 372. 30 CONJUNCTIVITIS UNSPECIFIED 12/01/2014 RANDALL REESE DIANE 372 .30 CONJUNCTIVITIS UNSPECIFIED 12/01/2014 VINITA BARBOSA DO K 372.30 CONJUNCTIVITIS UNSPECIFIED 12/10/2014 CARLO NGUYEN APRN 726. 90 ENTHESOPATHY OF UNSPECIFIED SITE 12/10/2014 DIANE PEREIRA APRN 726 .90 ENTHESOPATHY OF UNSPECIFIED SITE 12/10/2014 VINITA BARBOSA DO 726.90 ENTHESOPATHY OF UNSPECIFIED SITE 01/03/2015 JABIER STAFFORD DO Ot 379.91 PAIN IN OR AROUND EYE 01/03/2015 JABIER STAFFORD DO Ot 930.1 FB IN CONJUNCTIVAL SAC 01/03/2015 JABIER STAFFORD DO Ot E000.8 OTHER EXTERNAL CAUSE STATUS 01/03/2015 JABIER STAFFORD DO Ot E9 14 FB ENTERING EYE 02/16/2015 VINITA BARBOSA DO 782.0 DISTURBANCE OF SKIN SENSATION 02/16/2015 VINITA BARBOSA DO V76.51 SPECIAL SCREENING FOR MALIGNANT NEOPLASMS COLON 06/26/2016 PERFECTO MYRICK DO Ot M47.22 OTHER SPONDYLOSIS WITH RADICULOPATHY, CE 06/26/2016 FYA MYRICK DOA Michael Ot M54.2 CERVICALGIA 06/27/2016 PERFECTO MYRICK DO Ot M47.22 OTHER SPONDYLOSIS WITH RADICULOPATHY, CE 06/27/2016 FAY MYRICK DOA K Ot M54.2 CERVICALGIA 02/05/2017 DEREK GAN Ot I 10 ESSENTIAL (PRIMARY) HYPERTENSION 02/05/2017 DEREK GAN Ot K62.5 HEMORRHAGE OF ANUS AND RECTUM 02/05/2017 DEREK GAN Ot K64.9 UNSPECIFIED HEMORRHOIDS 02/05/2017 DEREK GNA Ot K92.1 MELENA 02/05/2017 DEREK GAN Ot Z79.899 OTHER HOGSHEAD DUMPER (CURRENT) DRUG THERAPY 02/06/2017 DEREK GAN Ot I 10 ESSENTIAL (PRIMARY) HYPERTENSION 02/06/2017 DEREK GAN Ot K62.5 HEMORRHAGE OF ANUS AND RECTUM 02/06/2017 DEREK GAN Ot K64.9 UNSPECIFIED HEMORRHOIDS 02/06/2017 DEREK GNA Ot K92.1 MELENA 02/06/2017 DEREK GAN Ot Z79.899 OTHER HOGSHEAD DUMPER (CURRENT) DRUG THERAPY 03/28/2017 PERFECTO MYRICK DO Ot K64.9 UNSPECIFIED HEMORRHOIDS 03/28/2017 ELEN DO, PERFECTO K Ot R10.32 LEFT LOWER QUADRANT PAIN 04/01/2017 ELEN , PERFECTO K Ot K64.9 UNSPECIFIED HEMORRHOIDS 04/01/2017 ELEN , PERFECTO K Ot R10.32 LEFT LOWER QUADRANT PAIN 04/20/2017 DORIE HUSAIN DO Ot K92. 1 MELENA 04/20/2017 DORIE HUSAIN DO Ot R13. 10 DYSPHAGIA, UNSPECIFIED 04/20/2017 DORIE HUSAIN DO Ot Z01.818 ENCOUNTER FOR OTHER PREPROCEDURAL EXAMIN 04/24/2017 DORIE HUSAIN DO Ot E66. 9 OBESITY, UNSPECIFIED 04/24/2017 DORIE HUSAIN DO Ot F32. 9 MAJOR DEPRESSIVE DISORDER, SINGLE EPISOD 04/24/2017 DORIE HUSAIN DO Ot F41. 9 ANXIETY DISORDER, UNSPECIFIED 04/24/2017 DORIE HUSAIN DO Ot G47. 33 OBSTRUCTIVE SLEEP APNEA (ADULT) (PEDIATR 04/24/2017 DORIE HUSAIN DO Ot I10 ESSENTIAL (PRIMARY) HYPERTENSION 04/24/2017 DORIE HUSAIN DO Ot J42 UNSPECIFIED CHRONIC BRONCHITIS 04/24/2017 DORIE HUSAIN DO Ot K20. 9 ESOPHAGITIS, UNSPECIFIED 04/24/2017 DORIE HUSAIN DO Ot K29. 70 GASTRITIS, UNSPECIFIED, WITHOUT BLEEDING 04/24/2017 DORIE HUSAIN DO Ot K64. 8 OTHER HEMORRHOIDS 04/24/2017 DORIE HUSAIN DO Ot K92. 1 MELENA 04/24/2017 DORIE HUSAIN DO Ot Z68. 31 BODY MASS INDEX (BMI) 31.0-31.9, ADULT 04/24/2017 DORIE HUSAIN DO Ot Z79.899 OTHER MCC (CURRENT) DRUG THERAPY 04/25/2017 DEREK GAN Ot I 10 ESSENTIAL (PRIMARY) HYPERTENSION 04/25/2017 DEREK GAN Ot K62.5 HEMORRHAGE OF ANUS AND RECTUM 04/25/2017 DEREK GAN Ot K64.9 UNSPECIFIED HEMORRHOIDS 04/25/2017 DEREK GAN Ot K92.1 MELENA 04/25/2017 DEREK GAN Ot Z79.899 OTHER HOGSHEAD DUMPER (CURRENT) DRUG THERAPY 04/25/2017 PERFECTO MYRICK DO K Ot K64.9 UNSPECIFIED HEMORRHOIDS 04/25/2017 PERFECTO MYRICK DO K Ot R10.32 LEFT LOWER QUADRANT PAIN 04/26/2017 DORIE HUSAIN DO Ot E66. 9 OBESITY, UNSPECIFIED 04/26/2017 MIREYA HUSAIN DOTT D Ot F32. 9 MAJOR DEPRESSIVE DISORDER, SINGLE EPISOD 04/26/2017 DORIE HUSAIN DO D Ot F41. 9 ANXIETY DISORDER, UNSPECIFIED 04/26/2017 RODRIGUE DOMIREYATT D Ot G47. 33 OBSTRUCTIVE SLEEP APNEA (ADULT) (PEDIATR 04/26/2017 RODRIGUE DOMIREYATT D Ot I10 ESSENTIAL (PRIMARY) HYPERTENSION 04/26/2017 RODRIGUE DODORIE Ot J42 UNSPECIFIED CHRONIC BRONCHITIS 04/26/2017 DORIE HUSAIN DO D Ot K20. 9 ESOPHAGITIS, UNSPECIFIED 04/26/2017 DORIE HUSAIN DO D Ot K29. 70 GASTRITIS, UNSPECIFIED, WITHOUT BLEEDING 04/26/2017 DORIE HUSAIN DO Ot K64. 8 OTHER HEMORRHOIDS 04/26/2017 DORIE HUSAIN DO Ot K92. 1 MELENA 04/26/2017 DORIE HUSAIN DO Ot Z68. 31 BODY MASS INDEX (BMI) 31.0-31.9, ADULT 04/26/2017 DORIE HUSAIN DO Ot Z79.899 OTHER HOGSHEAD DUMPER (CURRENT) DRUG THERAPY 04/30/2017 DORIE HUSAIN DO Ot E66. 9 OBESITY, UNSPECIFIED 04/30/2017 DORIE HUSAIN DO Ot F32. 9 MAJOR DEPRESSIVE DISORDER, SINGLE EPISOD 04/30/2017 DORIE HUSAIN DO D Ot F41. 9 ANXIETY DISORDER, UNSPECIFIED 04/30/2017 RODRIGUE DOMIREYATT D Ot G47. 33 OBSTRUCTIVE SLEEP APNEA (ADULT) (PEDIATR 04/30/2017 RODRIGUE DO DORIE D Ot I10 ESSENTIAL (PRIMARY) HYPERTENSION 04/30/2017 RODRIGUE DOMIREYATT D Ot J42 UNSPECIFIED CHRONIC BRONCHITIS 04/30/2017 MIREYA HUSAIN DOTT D Ot K20. 9 ESOPHAGITIS, UNSPECIFIED 04/30/2017 RODRIGUE DOMIREYATT D Ot K29. 70 GASTRITIS, UNSPECIFIED, WITHOUT BLEEDING 04/30/2017 HUSAIN DORIE MARROQUIN Ot K64. 8 OTHER HEMORRHOIDS 04/30/2017 HUSAIN DORIE MARROQUIN Ot K92. 1 MELENA 04/30/2017 HUSAIN DORIE MARROQUIN Ot Z68. 31 BODY MASS INDEX (BMI) 31.0-31.9, ADULT 04/30/2017 DORIE HUSAIN DO Ot Z79.899 OTHER HOGSHEAD DUMPER (CURRENT) DRUG THERAPY 09/05/2017 KAROL BOWERS MD Ot E03 .9 HYPOTHYROIDISM, UNSPECIFIED 09/05/2017 KAROL BOWERS MD Ot E78.00 PURE HYPERCHOLESTEROLEMIA, UNSPECIFIED 09/05/2017 KAROL BOWERS MD, Ot F32 .9 MAJOR DEPRESSIVE DISORDER, SINGLE EPISOD 09/05/2017 KAROL BOWERS MD, Ot F41 .9 ANXIETY DISORDER, UNSPECIFIED 09/05/2017 KAROL BOWERS MD Ot I10 ESSENTIAL (PRIMARY) HYPERTENSION 09/05/2017 KAROL BOWERS MD Ot J42 UNSPECIFIED CHRONIC BRONCHITIS 09/05/2017 KAROL BOWERS MD Ot K08.89 OTHER SPECIFIED DISORDERS OF TEETH AND S 09/05/2017 KAROL BOWERS MD Ot K21 .9 GASTRO-ESOPHAGEAL REFLUX DISEASE WITHOUT 09/05/2017 KAROL BOWERS MD Ot Z87.442 PERSONAL HISTORY OF URINARY CALCULI 09/05/2017 KAROL BOWERS MD Ot Z87.891 PERSONAL HISTORY OF NICOTINE DEPENDENCE 09/05/2017 KAROL BOWERS MD Ot Z90.89 ACQUIRED ABSENCE OF OTHER ORGANS 04/04/2018 CHARISSE LACEY MD Ot E03.9 HYPOTHYROIDISM, UNSPECIFIED 04/04/2018 CHARISSE LACEY MD Ot E78.00 PURE HYPERCHOLESTEROLEMIA, UNSPECIFIED 04/04/2018 CHARISSE LACEY MD Ot F32.9 MAJOR DEPRESSIVE DISORDER, SINGLE EPISOD 04/04/2018 CHARISSE LACEY MD, Ot F41.9 ANXIETY DISORDER, UNSPECIFIED 04/04/2018 CHARISSE LACEY MD Ot G47.30 SLEEP APNEA, UNSPECIFIED 04/04/2018 CHARISSE LACEY MD Ot I10 ESSENTIAL (PRIMARY) HYPERTENSION 04/04/2018 CHARISSE LACEY MD Ot K21.9 GASTRO-ESOPHAGEAL REFLUX DISEASE WITHOUT 04/04/2018 CHARISSE LACEY MD Ot L03.811 CELLULITIS OF HEAD [ANY PART, EXCEPT FAC 04/04/2018 CHARISSE LACEY MD Ot L98.9 DISORDER OF THE SKIN AND SUBCUTANEOUS TI 04/04/2018 CHARISSE LACEY MD Ot Z87.19 PERSONAL HISTORY OF OTHER DISEASES OF TH 04/04/2018 CHARISSE LACEY MD Ot Z87.442 PERSONAL HISTORY OF URINARY CALCULI 04/04/2018 CHARISSE LACEY MD Ot Z90.89 ACQUIRED ABSENCE OF OTHER ORGANS 04/08/2018 CHARISSE LACEY MD Ot E03.9 HYPOTHYROIDISM, UNSPECIFIED 04/08/2018 CHARISSE LACEY MD Ot E78.00 PURE HYPERCHOLESTEROLEMIA, UNSPECIFIED 04/08/2018 CHARISSE LACEY MD Ot F32.9 MAJOR DEPRESSIVE DISORDER, SINGLE EPISOD 04/08/2018 CHARISSE LACEY MD Ot F41.9 ANXIETY DISORDER, UNSPECIFIED 04/08/2018 CHARISSE LACEY MD Ot G47.30 SLEEP APNEA, UNSPECIFIED 04/08/2018 CHARISSE LACEY MD Ot I10 ESSENTIAL (PRIMARY) HYPERTENSION 04/08/2018 CHARISSE LACEY MD, Ot K21.9 GASTRO-ESOPHAGEAL REFLUX DISEASE WITHOUT 04/08/2018 CHARISSE LACEY MD Ot L03.811 CELLULITIS OF HEAD [ANY PART, EXCEPT FAC 04/08/2018 CHARISSE LACEY MD Ot L98.9 DISORDER OF THE SKIN AND SUBCUTANEOUS TI 04/08/2018 CHARISSE LACEY MD Ot Z87.19 PERSONAL HISTORY OF OTHER DISEASES OF TH 04/08/2018 CHARISSE LACEY MD Ot Z87.442 PERSONAL HISTORY OF URINARY CALCULI 04/08/2018 CHARISSE LACEY MD Ot Z90.89 ACQUIRED ABSENCE OF OTHER ORGANS 06/10/2018 JOSE HERNANDEZ 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 Ot E03 .9 HYPOTHYROIDISM, UNSPECIFIED 06/10/2018 JSOE HERNANDEZ 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 Ot E78.00 PURE HYPERCHOLESTEROLEMIA, UNSPECIFIED 06/10/2018 JOSE HERNANDEZ APRN Ot F32 .9 MAJOR DEPRESSIVE DISORDER, SINGLE EPISOD 06/10/2018 JOSE HERNANDEZ APRN Ot F41 .9 ANXIETY DISORDER, UNSPECIFIED 06/10/2018 JOSE HERNANDEZ APRN Ot I10 ESSENTIAL (PRIMARY) HYPERTENSION 06/10/2018 JOSE HERNANDEZ APRN Ot J42 UNSPECIFIED CHRONIC BRONCHITIS 06/10/2018 JOSE HERNANDEZ APRN Ot L08 .9 LOCAL INFECTION OF THE SKIN AND SUBCUTAN 06/10/2018 JOSE HERNANDEZ APRN Ot S40.261A INSECT BITE (NONVENOMOUS) OF RIGHT SHOUL 06/10/2018 JOSE HERNANDEZ APRN Ot W57.XXXA BIT/STUNG BY NONVENOM INSECT OTH NONVE 06/10/2018 JOSE HERNANDEZ APRN Ot Z87.442 PERSONAL HISTORY OF URINARY CALCULI 06/10/2018 JOSE HERNANDEZ APRN Ot Z90.89 ACQUIRED ABSENCE OF OTHER ORGANS 06/12/2018 JOSE HERNANDEZ APRN Ot E03 .9 HYPOTHYROIDISM, UNSPECIFIED 06/12/2018 JOSE HERNANDEZ APRN Ot E78.00 PURE HYPERCHOLESTEROLEMIA, UNSPECIFIED 06/12/2018 JOSE HERNANDEZ APRN Ot F32 .9 MAJOR DEPRESSIVE DISORDER, SINGLE EPISOD 06/12/2018 JOSE HERNANDEZ APRN Ot F41 .9 ANXIETY DISORDER, UNSPECIFIED 06/12/2018 JOSE HERNANDEZ APRN Ot I10 ESSENTIAL (PRIMARY) HYPERTENSION 06/12/2018 JOSE HERNANDEZ APRN Ot J42 UNSPECIFIED CHRONIC BRONCHITIS 06/12/2018 JOSE HERNANDEZ APRN Ot L08 .9 LOCAL INFECTION OF THE SKIN AND SUBCUTAN 06/12/2018 JOSE HERNANDEZ APRN Ot S40.261A INSECT BITE (NONVENOMOUS) OF RIGHT SHOUL 06/12/2018 JOSE HERNANDZE APRN Ot W57.XXXA BIT/STUNG BY NONVENOM INSECT OTH NONVE 06/12/2018 JOSE HERNANDEZ APRN Ot Z87.442 PERSONAL HISTORY OF URINARY CALCULI 06/12/2018 JOSE HERNANDEZ APRN Ot Z90.89 ACQUIRED ABSENCE OF OTHER ORGANS 06/16/2018 HERNANDEZ, PETER J 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 Ot E03 .9 HYPOTHYROIDISM, UNSPECIFIED 06/16/2018 JOSE HERNANDEZ APRN Ot E78.00 PURE HYPERCHOLESTEROLEMIA, UNSPECIFIED 06/16/2018 JOSE HERNANDEZ APRN Ot F32 .9 MAJOR DEPRESSIVE DISORDER, SINGLE EPISOD 06/16/2018 JOSE HERNANDEZ APRN Ot F41 .9 ANXIETY DISORDER, UNSPECIFIED 06/16/2018 JOSE HERNANDEZ APRN Ot I10 ESSENTIAL (PRIMARY) HYPERTENSION 06/16/2018 JOSE HERNANDEZ APRN Ot J42 UNSPECIFIED CHRONIC BRONCHITIS 06/16/2018 JOSE HERNANDEZ APRN Ot L08 .9 LOCAL INFECTION OF THE SKIN AND SUBCUTAN 06/16/2018 JOSE HERNANDEZ APRN Ot S40.261A INSECT BITE (NONVENOMOUS) OF RIGHT SHOUL 06/16/2018 JOSE HERNANDEZ APRN Ot W57.XXXA BIT/STUNG BY NONVENOM INSECT OTH NONVE 06/16/2018 JOSE HERNANDEZ APRN Ot Z87.442 PERSONAL HISTORY OF URINARY CALCULI 06/16/2018 JOSE HERNANDEZ APRN Ot Z90.89 ACQUIRED ABSENCE OF OTHER ORGANS Procedures Code Description [place] [address] PSYC H IND W/MED CK 20 10/04/2012 25840 ROUT INE VENIPUNCTURE 10/11/2012 62258 CBC 10/11/2012 66265 CMP 10/11/2012 1786127 GF R CALC (RESULT ONLY) 10/11/2012 78303 ROUT INE VENIPUNCTURE 01/14/2013 49295 CMP 01/22/2013 82287 LIPI D PANEL 01/22/2013 57514 SLEE P STUDY 01/31/2013 59878 ROUT INE VENIPUNCTURE 03/04/2013 46185 HIV ANTIBODIES (RML) 03/04/2013 Ronny Merino 03/24/2013 25865 PSYT X PT&/FAMILY 45 MINUTES 07/31/2013 50367 PSYT X PT&/FAMILY 45 MINUTES 08/22/2013 85486 PSYT X PT&/FAMILY 45 MINUTES 09/05/2013 88143 ROUT INE VENIPUNCTURE 05/11/2014 52470 CMP 05/11/2014 30813 LIPI D PANEL 05/11/2014 33537 TSH 05/11/2014 23585 HIV ANTIBODIES (RML) 05/11/2014 96326 XRAY HAND LEFT 2 VIEWS 10/19/2014 36983 ROUT INE VENIPUNCTURE 11/02/2014 93873 TSH 11/02/2014 ORTHOPMARIA C PENACARLO Devi 11/02/2014 32638 ROUT INE VENIPUNCTURE 02/16/2015 01943 VIT B 12 02/16/2015 64336 TSH 02/16/2015 37826 HIV ANTIBODIES (RML) 02/16/2015 G0102 CONNOR- PROSTATE CA SCREENING 02/16/2015 83318 HEMOCCULT 02/16/2015 23471 A1C (IN-HOUSE) 02/16/2015 [id number] GF R CALC (RESULT ONLY) 02/16/2015 16436 CMP 02/16/2015 54325 LIPI D PANEL 02/16/2015 Results Test Result Range Complete blood count (CBC) with automate d white blood cell (WBC) differential - 06/26/16 16:55 Blood leukocytes automated count (number/volume) 9.1 10*3/uL 4.3-11.0 Blood erythrocytes automated count (number/volume) 5.12 10*6/uL 4.35-5.85 Venous blood hemoglobin measurement (mass/volume) 15.8 g/dL 13.3-17.7 Blood hematocrit (volume fraction) 44 % 40-54 Automated erythrocyte mean corpuscular volume 86 [ foz_us] 80-99 Automated erythrocyte mean corpuscular h emoglobin (mass per erythrocyte) 31 pg 25-34 Automated erythrocyte mean corpuscular h emoglobin concentration measurement (mass/volume) 36 g/dL 32-36 Automated erythrocyte distribution width ratio 13. 6 % 10.0- 14.5 Automated blood platelet count (count/volume) 269 10*3/uL 130-400 Automated blood platelet mean volume measurement 10.3 [foz_us] 7.4-10.4 Automated blood neutrophils/100 leukocytes 67 % 42-75 Automated blood lymphocytes/100 leukocytes 24 % 12-44 Blood monocytes/100 leukocytes 7 % 0-12 Automated blood eosinophils/100 leukocytes 1 % 0-10 Automated blood basophils/100 leukocytes 1 % 0-10 Blood neutrophils automated count (number/volume) 6.1 10*3 1.8-7.8 Blood lymphocytes automated count (number/volume) 2.2 10*3 1.0-4.0 Blood monocytes automated count (number/volume) 0. 7 10*3 0.0-1.0 Automated eosinophil count 0.1 10*3/uL 0 .0-0.3 Automated blood basophil count (count/volume) 0.1 10*3/uL 0.0-0.1 PT panel in platelet poor plasma by coag ulation assay - 06/26/16 16:55 Prothrombin time (PT) in platelet poor plasma by coagu lation assay 13.1 s 12.2-14.7 INR in platelet poor plasma or blood by coagulation as say 1.0 0.8-1.4 Activated partial thromboplastin time (a PTT) in platelet poor plasma bycoagulation assay - 06/26/16 16:55 Activated partial thromboplastin time (a PTT) in platelet poor plasma bycoagulation assay 29 s 24-35 Comprehensive metabolic panel - 06/26/16 16:55 Serum or plasma sodium measurement (moles/volume) 140 mmol/L 135-145 Serum or plasma potassium measurement (moles/volume) 3.3 mmol/L 3.6-5.0 Serum or plasma chloride measurement (moles/volume) 107 mmol/L 98-107 Carbon dioxide 25 mmol/L 21-32 Serum or plasma anion gap determination (moles/volume) 8 mmol/L 5-14 Serum or plasma urea nitrogen measurement (mass/volume ) 8 mg/dL 7-18 Serum or plasma creatinine measurement (mass/volume) 0.94 mg/dL 0.60-1.30 Serum or plasma urea nitrogen/creatinine mass ratio 9 NRG Serum or plasma creatinine measurement w ith calculation of estimated glomerular filtration rate > NRG Serum or plasma glucose measurement (mass/volume) 107 mg/dL 70-105 Serum or plasma calcium measurement (mass/volume) 8.8 mg/dL 8.5-10.1 Serum or plasma total bilirubin measurement (mass/volu me) 0.5 mg/dL 0.1-1.0 Serum or plasma alkaline phosphatase darin surement (enzymatic activity/volume) 78 U/L 40-136 Serum or plasma aspartate aminotransfera se measurement (enzymatic activity/volume) 27 U/L 5-34 Serum or plasma alanine aminotransferase measurement (enzymatic activity/volume) 30 U/L 0-55 Serum or plasma protein measurement (mass/volume) 6.4 g/dL 6.4-8.2 Serum or plasma albumin measurement (mass/volume) 4.0 g/dL 3.2-4.5 Magnesium - 06/26/16 16:55 Magnesium 2.0 mg/dL 1.8-2.4 Serum or plasma creatine kinase measurem ent (enzymatic activity/volume) - 06/26/16 16:55 Serum or plasma creatine kinase measurem ent (enzymatic activity/volume) 205 U/L 30-200 Serum or plasma creatine kinase MB measu rement (enzymatic activity/volume) - 06/26/16 16:55 Serum or plasma creatine kinase MB measu rement (enzymatic activity/volume) 1.8 ng/mL <6.6 Serum or plasma troponin i.cardiac measu rement (mass/volume) - 06/26/16 16:55 Serum or plasma troponin i.cardiac measurement (mass/v olume) < ng/mL <0.30 Serum or plasma amylase measurement (enz ymatic activity/volume) - 06/26/16 16:55 Serum or plasma amylase measurement (enzymatic activit y/volume) 90 U/L 25-125 Lipase - 06/26/16 16:55 Lipase 30 U/L 8-78 Complete urinalysis with reflex to cultu re - 06/26/16 18:26 Urine color determination YELLOW NRG Urine clarity determination SLIGHTLY CLOUDY NRG Urine pH measurement by test strip 7 5-9 Specific gravity of urine by test strip 1.015 1.016-1.022 Urine protein assay by test strip, semi-quantitative NEGATIVE NEGATIVE Urine glucose detection by automated test strip NE GATIVE NEGATIVE Erythrocytes detection in urine sediment by light micr oscopy NEGATIVE NEGATIVE Urine ketones detection by automated test strip NE GATIVE NEGATIVE Urine nitrite detection by test strip NEGATIVE NEGATIVE Urine total bilirubin detection by test strip NEGA TIVE NEGATIVE Urine urobilinogen measurement by automated test strip (mass/volume) 1 mg/dL NORMAL Urine leukocyte esterase detection by dipstick NEG ATIVE NEGATIVE Automated urine sediment erythrocyte cou nt by microscopy (number/high power field) NONE NRG Automated urine sediment leukocyte count by microscopy (number/high power field) NONE NRG Bacteria detection in urine sediment by light microsco py NNONE NRG Crystals detection in urine sediment by light microsco py PRESENT NRG Casts detection in urine sediment by light microscopy NONE NRG Mucus detection in urine sediment by light microscopy NEGATIVE NRG Complete urinalysis with reflex to culture NO NRG Amorphous sediment detection in urine sediment by ligh t microscopy MOD BERNADINE URATES NRG TSH w/ FREE T4 - 10/19/17 08:26 TSH 2.75 mIU/L 0.40-4.50 T4, FREE 1.0 ng/dL 0.8-1.8 Gram stain microscopy - 06/10/18 16:30 GRAM STAIN RESULT FEW GRAM POSITIVE COCCI RESEMBLI NG STAPH NRG Bacteria identification in wound by cult ure - 06/10/18 16:30 Bacteria identification in wound by culture [id number] NRG FREE TEXT EXTERNAL SENSITIVITY REPORTED AT 1210, NRG QUANTITY OF GROWTH Abundant Growth NRG MRSA AGAR MRSA isolated (Screening test for MRSA is positive) NRG CALL POSITIVES (F1 HELP) PRINTED TO ED/NS 1212, /KD NRG Bacterial susceptibility panel - 8 16:30 Oxacillin susceptibility test by minimum inhibitory co ncentration >= NRG Gentamicin susceptibility test by minimum inhibitory c oncentration <= NRG Clindamycin susceptibility test by minimum inhibitory concentration <= NRG Erythromycin susceptibility test by minimum inhibitory concentration >= NRG Trimethoprim/sulfamethoxazole susceptibi lity test by minimum inhibitoryconcentration S NRG Vancomycin susceptibility test by minimum inhibitory c oncentration <= NRG Levofloxacin susceptibility test by minimum inhibitory concentration 0.25 NRG Rifampin susceptibility test by minimum inhibitory con centration <= NRG Tetracycline susceptibility test by minimum inhibitory concentration <= NRG Tick identification panel - 06/10/18 16: 49 Serum Ehrlichia chaffeensis IgG antibody detection <1:16 <1:16 Serum Ehrlichia chaffeensis IgM antibody detection <1:10 <1:10 Serum Rickettsia rickettsii IgG antibody assay (units/ volume) < <1:16 [place] spotted fever panel < <1:10 Francisella tularensis antibody assay <1:20 NRG LYME AB G M 0.04 % 0.00-0.89 Interpretation of Lyme disease antibody assay Nega tive Negative TSH - 06/21/18 16:32 TSH 5.53 mIU/L 0.40-4.50 A1C - 08/29/19 15:31 HEMOGLOBIN A1c 5.3 % of total Hgb <5.7 Complete blood count (CBC) with automate d white blood cell (WBC) differential - 02/05/20 11:30 Blood leukocytes automated count (number/volume) 20.9 10*3/uL 4.3-11.0 Blood erythrocytes automated count (number/volume) 5.95 10*6/uL 4.35-5.85 Venous blood hemoglobin measurement (mass/volume) 18.1 g/dL 13.3-17.7 Blood hematocrit (volume fraction) 51 % 40-54 Automated erythrocyte mean corpuscular volume 85 [ foz_us] 80-99 Automated erythrocyte mean corpuscular h emoglobin (mass per erythrocyte) 30 pg 25-34 Automated erythrocyte mean corpuscular h emoglobin concentration measurement (mass/volume) 36 g/dL 32-36 Automated erythrocyte distribution width ratio 12. 7 % 10.0- 14.5 Automated blood platelet count (count/volume) 345 10*3/uL 130-400 Automated blood platelet mean volume measurement 9.7 [foz_us] 7.4-10.4 Automated blood neutrophils/100 leukocytes 92 % 42-75 Automated blood lymphocytes/100 leukocytes 6 % 12-44 Blood monocytes/100 leukocytes 2 % 0-12 Automated blood eosinophils/100 leukocytes 0 % 0-10 Automated blood basophils/100 leukocytes 0 % 0-10 Blood neutrophils automated count (number/volume) 19.3 10*3 1.8-7.8 Blood lymphocytes automated count (number/volume) 1.3 10*3 1.0-4.0 Blood monocytes automated count (number/volume) 0. 3 10*3 0.0-1.0 Automated eosinophil count 0.0 10*3/uL 0 .0-0.3 Automated blood basophil count (count/volume) 0.0 10*3/uL 0.0-0.1 PT panel in platelet poor plasma by coag ulation assay - 02/05/20 11:30 Prothrombin time (PT) in platelet poor plasma by coagu lation assay 14.4 s 12.2-14.7 INR in platelet poor plasma or blood by coagulation as say 1.1 0.8-1.4 Activated partial thromboplastin time (a PTT) in platelet poor plasma bycoagulation assay - 02/05/20 11:30 Activated partial thromboplastin time (a PTT) in platelet poor plasma bycoagulation assay 28 s 24-35 Comprehensive metabolic panel - 02/05/20 11:30 Serum or plasma sodium measurement (moles/volume) 135 mmol/L 135-145 Serum or plasma potassium measurement (moles/volume) 4.0 mmol/L 3.6-5.0 Serum or plasma chloride measurement (moles/volume) 104 mmol/L 98-107 Carbon dioxide 19 mmol/L 21-32 Serum or plasma anion gap determination (moles/volume) 12 mmol/L 5-14 Serum or plasma urea nitrogen measurement (mass/volume ) 12 mg/dL 7-18 Serum or plasma creatinine measurement (mass/volume) 1.34 mg/dL 0.60-1.30 Serum or plasma urea nitrogen/creatinine mass ratio 9 NRG Serum or plasma creatinine measurement w ith calculation of estimated glomerular filtration rate 55 NRG Serum or plasma glucose measurement (mass/volume) 141 mg/dL 70-105 Serum or plasma calcium measurement (mass/volume) 9.7 mg/dL 8.5-10.1 Serum or plasma total bilirubin measurement (mass/volu me) 1.2 mg/dL 0.1-1.0 Serum or plasma alkaline phosphatase darin surement (enzymatic activity/volume) 76 U/L 40-136 Serum or plasma aspartate aminotransfera se measurement (enzymatic activity/volume) 39 U/L 5-34 Serum or plasma alanine aminotransferase measurement (enzymatic activity/volume) 39 U/L 0-55 Serum or plasma protein measurement (mass/volume) 8.3 g/dL 6.4-8.2 Serum or plasma albumin measurement (mass/volume) 5.0 g/dL 3.2-4.5 Magnesium - 02/05/20 11:30 Magnesium 2.1 mg/dL 1.6-2.4 Manual absolute plasma cell count - 01/24 01/15 11:30 Blood monocytes/100 leukocytes 1 % NRG Manual blood segmented neutrophils/100 leukocytes 92 % NRG Manual blood lymphocytes/100 leukocytes 4 % NRG Blood lymphocytes variant/100 leukocytes 3 % NRG Blood erythrocyte morphology finding identification NORMAL NRG Serum or plasma salicylates measurement (mass/volume) - 02/05/20 11:30 Serum or plasma salicylates measurement (mass/volume) < mg/dL 5.0-20.0 Serum or plasma acetaminophen measuremen t (mass/volume) - 02/05/20 11:30 Serum or plasma acetaminophen measurement (mass/volume ) 48 ug/mL 10-30 Serum or plasma ethanol measurement (mas s/volume) - 02/05/20 11:30 Serum or plasma ethanol measurement (mass/volume) < mg/dL <10 Serum or plasma thyroxine (T4) free claudia urement (mass/volume) - 02/05/20 11:30 Serum or plasma thyroxine (T4) free measurement (mass/ volume) 0.98 ng/dL 0.70-1.48 Serum or plasma thyrotropin measurement by detection limit <=0.05 miu/l (units/volume) - 02/05/20 11:30 Serum or plasma thyrotropin measurement by detection limit <=0.05 miu/l (units/volume) 6.49 u[iU]/mL 0.35-4.94 Blood lactic acid measurement (moles/vol ume) - 02/05/20 11:50 Blood lactic acid measurement (moles/volume) 2.08 mmol/L 0.50-2.00 Complete urinalysis with reflex to cultu re - 02/05/20 12:24 Urine color determination YELLOW NRG Urine clarity determination CLEAR NR G Urine pH measurement by test strip 5.5 5-9 Specific gravity of urine by test strip >= 1.016-1.022 Urine protein assay by test strip, semi-quantitative TRACE NEGATIVE Urine glucose detection by automated test strip NE GATIVE NEGATIVE Erythrocytes detection in urine sediment by light micr oscopy NEGATIVE NEGATIVE Urine ketones detection by automated test strip 1+ NEGATIVE Urine nitrite detection by test strip NEGATIVE NEGATIVE Urine total bilirubin detection by test strip NEGA TIVE NEGATIVE Urine urobilinogen measurement by automated test strip (mass/volume) 0.2 mg/dL < = 1.0 Urine leukocyte esterase detection by dipstick NEG ATIVE NEGATIVE Automated urine sediment erythrocyte cou nt by microscopy (number/high power field) NONE NRG Automated urine sediment leukocyte count by microscopy (number/high power field) RARE NRG Bacteria detection in urine sediment by light microsco py NEGATIVE NRG Squamous epithelial cells detection in u rine sediment by light microscopy RARE NRG Crystals detection in urine sediment by light microsco py NONE NRG Casts detection in urine sediment by light microscopy NONE NRG Mucus detection in urine sediment by light microscopy NEGATIVE NRG Complete urinalysis with reflex to culture NO NRG Urine drug screening test - 02/05/20 12: 24 Urine phencyclidine detection by screening method NEGATIVE NEGATIVE Urine benzodiazepines detection by screening method POSITIVE NEGATIVE Urine cocaine detection NEGATIVE NEGATI VE Urine amphetamines detection by screening method N EGATIVE NEGATIVE Urine methamphetamine detection by screening method NEGATIVE NEGATIVE Urine cannabinoids detection by screening method N EGATIVE NEGATIVE Urine opiates detection by screening method NEGATI VE NEGATIVE Urine barbiturates detection NEGATIVE N EGATIVE Screening urine tricyclic antidepressants detection NEGATIVE NEGATIVE Urine methadone detection by screening method NEGA TIVE NEGATIVE Urine oxycodone detection NEGATIVE NEGA TIVE Urine propoxyphene detection NEGATIVE N EGATIVE Serum or plasma lactate measurement (mol es/volume) - 02/05/20 14:11 Serum or plasma lactate measurement (moles/volume) 4.47 mmol/L 0.50-2.00 Complete blood count (CBC) with automate d white blood cell (WBC) differential - 02/05/20 17:21 Blood leukocytes automated count (number/volume) 20.1 10*3/uL 4.3-11.0 Blood erythrocytes automated count (number/volume) 5.44 10*6/uL 4.35-5.85 Venous blood hemoglobin measurement (mass/volume) 16.5 g/dL 13.3-17.7 Blood hematocrit (volume fraction) 47 % 40-54 Automated erythrocyte mean corpuscular volume 86 [ foz_us] 80-99 Automated erythrocyte mean corpuscular h emoglobin (mass per erythrocyte) 30 pg 25-34 Automated erythrocyte mean corpuscular h emoglobin concentration measurement (mass/volume) 35 g/dL 32-36 Automated erythrocyte distribution width ratio 12. 8 % 10.0- 14.5 Automated blood platelet count (count/volume) 290 10*3/uL 130-400 Automated blood platelet mean volume measurement 9.7 [foz_us] 7.4-10.4 Automated blood neutrophils/100 leukocytes 89 % 42-75 Automated blood lymphocytes/100 leukocytes 6 % 12-44 Blood monocytes/100 leukocytes 5 % 0-12 Automated blood eosinophils/100 leukocytes 0 % 0-10 Automated blood basophils/100 leukocytes 0 % 0-10 Blood neutrophils automated count (number/volume) 17.9 10*3 1.8-7.8 Blood lymphocytes automated count (number/volume) 1.2 10*3 1.0-4.0 Blood monocytes automated count (number/volume) 1. 0 10*3 0.0-1.0 Automated eosinophil count 0.0 10*3/uL 0 .0-0.3 Automated blood basophil count (count/volume) 0.0 10*3/uL 0.0-0.1 Comprehensive metabolic panel - 02/05/20 17:21 Serum or plasma sodium measurement (moles/volume) 137 mmol/L 135-145 Serum or plasma potassium measurement (moles/volume) 3.3 mmol/L 3.6-5.0 Serum or plasma chloride measurement (moles/volume) 106 mmol/L 98-107 Carbon dioxide 21 mmol/L 21-32 Serum or plasma anion gap determination (moles/volume) 10 mmol/L 5-14 Serum or plasma urea nitrogen measurement (mass/volume ) 10 mg/dL 7-18 Serum or plasma creatinine measurement (mass/volume) 1.07 mg/dL 0.60-1.30 Serum or plasma urea nitrogen/creatinine mass ratio 9 NRG Serum or plasma creatinine measurement w ith calculation of estimated glomerular filtration rate > NRG Serum or plasma glucose measurement (mass/volume) 123 mg/dL 70-105 Serum or plasma calcium measurement (mass/volume) 8.9 mg/dL 8.5-10.1 Serum or plasma total bilirubin measurement (mass/volu me) 1.0 mg/dL 0.1-1.0 Serum or plasma alkaline phosphatase darin surement (enzymatic activity/volume) 54 U/L 40-136 Serum or plasma aspartate aminotransfera se measurement (enzymatic activity/volume) 27 U/L 5-34 Serum or plasma alanine aminotransferase measurement (enzymatic activity/volume) 32 U/L 0-55 Serum or plasma protein measurement (mass/volume) 6.9 g/dL 6.4-8.2 Serum or plasma albumin measurement (mass/volume) 4.2 g/dL 3.2-4.5 CALCIUM CORRECTED 8.7 mg/dL 8.5-10.1 Serum or plasma acetaminophen measuremen t (mass/volume) - 02/05/20 17:21 Serum or plasma acetaminophen measurement (mass/volume ) 14 ug/mL 10-30 Serum or plasma lactate measurement (mol es/volume) - 02/05/20 17:21 Serum or plasma lactate measurement (moles/volume) 3.00 mmol/L 0.50-2.00 Serum or plasma lactate measurement (mol es/volume) - 02/05/20 19:30 Serum or plasma lactate measurement (moles/volume) 3.54 mmol/L 0.50-2.00 Serum or plasma lactate measurement (mol es/volume) - 02/05/20 21:28 Serum or plasma lactate measurement (moles/volume) 3.15 mmol/L 0.50-2.00 Serum or plasma lactate measurement (mol es/volume) - 02/05/20 23:40 Serum or plasma lactate measurement (moles/volume) 1.91 mmol/L 0.50-2.00 Complete blood count (CBC) with automate d white blood cell (WBC) differential - 02/06/20 03:32 Blood leukocytes automated count (number/volume) 12.2 10*3/uL 4.3-11.0 Blood erythrocytes automated count (number/volume) 5.26 10*6/uL 4.35-5.85 Venous blood hemoglobin measurement (mass/volume) 15.9 g/dL 13.3-17.7 Blood hematocrit (volume fraction) 45 % 40-54 Automated erythrocyte mean corpuscular volume 86 [ foz_us] 80-99 Automated erythrocyte mean corpuscular h emoglobin (mass per erythrocyte) 30 pg 25-34 Automated erythrocyte mean corpuscular h emoglobin concentration measurement (mass/volume) 35 g/dL 32-36 Automated erythrocyte distribution width ratio 13. 0 % 10.0- 14.5 Automated blood platelet count (count/volume) 235 10*3/uL 130-400 Automated blood platelet mean volume measurement 10.1 [foz_us] 7.4-10.4 Automated blood neutrophils/100 leukocytes 79 % 42-75 Automated blood lymphocytes/100 leukocytes 15 % 12-44 Blood monocytes/100 leukocytes 6 % 0-12 Automated blood eosinophils/100 leukocytes 0 % 0-10 Automated blood basophils/100 leukocytes 0 % 0-10 Blood neutrophils automated count (number/volume) 9.7 10*3 1.8-7.8 Blood lymphocytes automated count (number/volume) 1.8 10*3 1.0-4.0 Blood monocytes automated count (number/volume) 0. 7 10*3 0.0-1.0 Automated eosinophil count 0.0 10*3/uL 0 .0-0.3 Automated blood basophil count (count/volume) 0.0 10*3/uL 0.0-0.1 Comprehensive metabolic panel - 02/06/20 03:32 Serum or plasma sodium measurement (moles/volume) 140 mmol/L 135-145 Serum or plasma potassium measurement (moles/volume) 3.7 mmol/L 3.6-5.0 Serum or plasma chloride measurement (moles/volume) 110 mmol/L 98-107 Carbon dioxide 19 mmol/L 21-32 Serum or plasma anion gap determination (moles/volume) 11 mmol/L 5-14 Serum or plasma urea nitrogen measurement (mass/volume ) 7 mg/dL 7-18 Serum or plasma creatinine measurement (mass/volume) 0.85 mg/dL 0.60-1.30 Serum or plasma urea nitrogen/creatinine mass ratio 8 NRG Serum or plasma creatinine measurement w ith calculation of estimated glomerular filtration rate > NRG Serum or plasma glucose measurement (mass/volume) 124 mg/dL 70-105 Serum or plasma calcium measurement (mass/volume) 8.4 mg/dL 8.5-10.1 Serum or plasma total bilirubin measurement (mass/volu me) 1.0 mg/dL 0.1-1.0 Serum or plasma alkaline phosphatase darin surement (enzymatic activity/volume) 51 U/L 40-136 Serum or plasma aspartate aminotransfera se measurement (enzymatic activity/volume) 25 U/L 5-34 Serum or plasma alanine aminotransferase measurement (enzymatic activity/volume) 28 U/L 0-55 Serum or plasma protein measurement (mass/volume) 6.0 g/dL 6.4-8.2 Serum or plasma albumin measurement (mass/volume) 3.7 g/dL 3.2-4.5 CALCIUM CORRECTED 8.6 mg/dL 8.5-10.1 Liver function panel (serum or plasma al k phos, alb, total and direct bili, total protein, ALT, AST) - 02/06/20 09:26 Serum or plasma total bilirubin measurement (mass/volu me) 0.7 mg/dL 0.1-1.0 Serum or plasma alkaline phosphatase darin surement (enzymatic activity/volume) 47 U/L 40-136 Serum or plasma aspartate aminotransfera se measurement (enzymatic activity/volume) 20 U/L 5-34 Serum or plasma alanine aminotransferase measurement (enzymatic activity/volume) 27 U/L 0-55 Serum or plasma protein measurement (mass/volume) 5.7 g/dL 6.4-8.2 Serum or plasma albumin measurement (mass/volume) 3.6 g/dL 3.2-4.5 Bilirubin direct 0.3 mg/dL 0.0-0.3 Serum or plasma indirect bilirubin measurement (mass/v olume) 0.4 mg/dL NRG Serum or plasma acetaminophen measuremen t (mass/volume) - 02/06/20 09:26 Serum or plasma acetaminophen measurement (mass/volume ) < ug/mL 10-30 Encounters ACCT No. Visit Date/Time Discharge Status Pt. Type Provider Facility Loc./Unit Complaint [id number] 08/29/2019 15:20:00 08/29/2019 23:59: 59 CLS Outpatient JABIER MARQUEZ APRN [facility] [id number] 08/29/2019 15:20:00 Document Registration [id number] 06/21/2018 16:20:00 Document Registration [id number] 10/19/2017 08:20:00 Document Registration [id number] 02/16/2015 09:44:00 02/16/2015 23:59: 59 CLS Outpatient VINITA BARBOSA DO [id number] 01/14/2015 09:47:00 01/14/2015 23:59: 59 CLS Outpatient DIANE PEREIRA APRN [id number] 12/10/2014 13:50:00 12/10/2014 23:59: 59 CLS Outpatient CARLO NGUYEN APRN [id number] 12/01/2014 09:27:00 12/01/2014 23:59: 59 CLS Outpatient DIANE PEREIRA APRN [id number] 11/02/2014 10:01:00 11/02/2014 23:59: 59 CLS Outpatient VINITA BARBOSA DO [id number] 10/19/2014 11:29:00 10/19/2014 23:59: 59 CLS Outpatient FATOU JIMENEZ APRN [id number] 05/22/2014 14:19:00 05/22/2014 23:59: 59 CLS Outpatient DIANE PEREIRA APRN [id number] 05/22/2014 14:19:00 05/22/2014 23:59: 59 CLS Outpatient DIANE PEREIRA APRN [id number] 05/11/2014 12:25:00 05/11/2014 23:59: 59 CLS Outpatient VINITA BARBOSA DO [id number] 04/14/2014 13:36:00 04/14/2014 23:59: 59 CLS Outpatient SONYA WHITAKER MD [id number] 09/05/2013 12:52:00 09/05/2013 23:59: 59 CLS Outpatient NAVEEN BANKS [id number] 09/03/2013 08:26:00 09/03/2013 23:59: 59 CLS Outpatient [id number] 08/28/2013 11:04:00 08/28/2013 23:59: 59 CLS Outpatient VINITA BARBOSA DO Michael [id number] 08/22/2013 08:47:00 08/22/2013 23:59: 59 CLS Outpatient [facility] NAVEEN Maciel [id number] 07/08/2013 11:01:00 07/08/2013 23:59: 59 CLS Outpatient NILSON IRWIN APRN [id number] 03/04/2013 14:01:00 03/04/2013 23:59: 59 CLS Outpatient CHARISSE GUTIERREZ PA-C [id number] 01/16/2013 10:33:00 01/16/2013 23:59: 59 CLS Outpatient JOVITA MURRAY DO [id number] 01/16/2013 10:33:00 01/16/2013 23:59: 59 CLS Outpatient NILSON IRWIN APRN [id number] 10/11/2012 10:07:00 10/11/2012 23:59: 59 CLS Outpatient [place] Michael [id number] 10/04/2012 10:53:00 10/04/2012 23:59:5 9 CLS Outpatient CHELSEY MARROQUIN VINITA Michael [id number] 07/31/2013 09:55:00 Document Registration [id number] 07/08/2013 11:01:00 Document Registration [id number] 04/10/2013 14:12:00 Document Registration [id number] 04/10/2013 14:12:00 Document Registration [id number] 06/10/2018 15:45:00 018 17:11:00 DIS Emergency JOSE HERNANDEZ APRN [facility] ER BUG BITE [id number] 04/04/2018 01:19:00 018 02:40:00 DIS Emergency CHARISSE LACEY MD [facility] ER POSS BITE ON NE CK [id number] 09/05/2017 09:24:00 017 13:19:00 DIS Emergency KAROL BOWERS MD [facility] ER TOOTH ABCESS,DIARRHEA [id number] 04/24/2017 07:56:00 017 10:45:00 DIS Outpatient DORIE HUSAIN DO [facility] ENDO BLOODY STOOLS, DYSPHAGI A [id number] 04/20/2017 11:00:00 017 12:18:00 DIS Outpatient DORIE HUSAIN DO [facility] PREOP COLONOSCOPY, EGD [id number] 03/28/2017 18:57:00 017 19:36:00 DIS Emergency PERFECTO MYRICK DO [facility] ER LOWER ABD PAIN [id number] 02/05/2017 11:02:00 017 13:12:00 DIS Emergency DEREK GAN [facility] ER DIARRHEA/BLOOD IN STOO L [id number] 06/26/2016 14:41:00 016 18:53:00 DIS Emergency PERFECTO MYRICK DO [facility] ER L ARM NUMBNESS [id number] 01/03/2015 06:17:00 015 06:46:00 DIS Emergency JABIER STAFFORD DO [facility] ER POSS FB RIGHT EYE [id number] 02/05/2020 12:50:[address] Inpatient MEERA KAUR DO [facility] CSD ACETAMINOPHEN OVERDOSE-INTEN TIONAL HARM [id number] 03/12/2013 21:21:00 Document Registration [id number] 06/17/2012 14:00:00 Document Registration [id number] 02/10/2012 02:14:00 Document Registration [id number] 11/10/2011 09:50:00 Document Registration
== END 2020-02-06 17:00 | disposition home or self-care (01) ==
LOC: EDUNIT# 11:13 → ER 11:15 → CSD 12:50
PROVIDERS: ADMIT Internal Medicine; ATTEND Internal Medicine
DX: T39.1X2A Poisoning by 4-Aminophenol derivatives, intentional self-harm, initial encounter (principal); E87.2 Acidosis; G47.30 Sleep apnea, unspecified; J42 Unspecified chronic bronchitis; I10 Essential (primary) hypertension; K21.9 Gastro-esophageal reflux disease without esophagitis; E03.9 Hypothyroidism, unspecified; E78.00 Pure hypercholesterolemia, unspecified; F32.9 Major depressive disorder, single episode, unspecified; F41.9 Anxiety disorder, unspecified; Z88.1 Allergy status to other antibiotic agents; Z79.899 Other long term (current) drug therapy; Z90.89 Acquired absence of other organs
CPT/HCPCS: 36415; 80053; 80076; 80306; 80320; 80329; 81000; 83605; 83735; 84439; 84443; 85007; 85025; 85027; 85610; 85730; 93005; 93041

== ENCOUNTER 2021-05-19 05:39 | Outpatient (CLI) | payer OTHER ==
[~2021-05-19] VITALS: Ht 172.7 cm; Wt 96.8 kg
[~2021-05-19 05:39] MED LIST changes: +BREX1TAB PO; -LISI-552 PO; +LISI20TA26 PO
[2021-05-20] MEDS ORDERED: PANT40TA52 PO (10:36)
[2021-05-20] MEDS ORDERED: LISI20TA26 PO (10:36)
[2021-05-20] MEDS ORDERED: HYDR50TA76 PO (10:36)
[2021-05-20] MEDS ORDERED: ATOR20TA66 PO (10:36)
[2021-05-20] MEDS ORDERED: LEVO125C4 PO (10:36)
[2021-05-20] MEDS ORDERED: ARIP5TAB59 PO (10:36)
[2021-05-20] MEDS ORDERED: MELA10TA2 PO (11:43)
== END 2021-05-20 11:52 | disposition home or self-care (01) ==
LOC: PREOP 05:39
PROVIDERS: ATTEND Surgery
DX: Z01.818 Encounter for other preprocedural examination (principal)

== ENCOUNTER 2021-05-26 07:38 | Day surgery (SDC) | payer OTHER ==
[2021-05-26] VITALS (11 sets, daily range): BP systolic 101–133; BP diastolic 67–92
[~2021-05-26] VITALS: Ht 172 cm; Wt 96.8 kg
[~2021-05-26 07:38] MED LIST changes: +ARIP5TAB59 PO; +ATOR20TA66 PO; +HYDR50TA76 PO; +LEVO125C4 PO; +MELA10TA2 PO; +PANT40TA52 PO
[2021-05-26] MEDS ORDERED: ROCURONIUM 10 MG/ML 5 ML SYRINGE IV ONE (07:40)
[2021-05-26] MEDS ORDERED: GLYCOPYRROLATE 0.2 MG/ML (ROBINUL) 2 ML VIAL ONE (07:40)
[2021-05-26] MEDS ORDERED: NEOSTIGMINE 3 MG/3 ML VIAL ONE (07:40)
[2021-05-26] MEDS ORDERED: fentaNYL INJ 100 MCG/2 ML AMP ONE (07:40)
[2021-05-26] MEDS ORDERED: ONDANSETRON 4 MG/2 ML (SDV) Z0FRAN ONE (07:40)
[2021-05-26] MEDS ORDERED: proPOfol 200 MG/20 ML (DIPRIVAN) VIAL IV ONE (07:40)
[2021-05-26] MEDS ORDERED: LIDOCAINE PF 2% 5 ML (XYLOCAINE) VIAL ONE (07:40)
[2021-05-26] MEDS ORDERED: MIDAZOLAM 2 MG/2 ML (VERSED) VIAL ONE (07:41)
--- NOTE | 2021-05-26 08:06 | Progress Note-Pre Operative ---
Pre-Operative Progress Note H&P Reviewed The H&P was reviewed, patient examined and no changes noted. Date Seen by Provider: May 26, 2021 Time Seen by Provider: 08:06 Date H&P Reviewed: May 26, 2021 Time H&P Reviewed: 08:06 Pre-Operative Diagnosis: umbilical hernia DORIE HUSAIN DO May 26, 2021 08:06
[2021-05-26] MEDS ORDERED: LIDOCAINE/EPI 1%-1:100,000 (XYLOCAINE) 20ML ONE (08:24)
[2021-05-26] MEDS ORDERED: ceFAZolin 2 GM IV Premixed 50 ML IV ONE (08:45)
[2021-05-26] MEDS: LACTATED RINGERS 1,000 ML IV PRN ×2 (08:58→09:51)
[2021-05-26] MEDS ORDERED: SUCCINYLCHOLINE INJ 100 MG/5 ML SYR/VIAL ONE (09:01)
[2021-05-26] MEDS ORDERED: PHENYLEPHRINE 100 MCG/ML 10 ML (ANESTHESIA) SYR ONE (09:20)
[2021-05-26] MEDS ORDERED: SEVOFLURANE (ULTANE) 15 ML INHAL SOLN ONE (09:32)
[2021-05-26] MEDS ORDERED: ACHD5005 PO (10:03)
[2021-05-26] MEDS ORDERED: DOCU-143 PO (10:03)
--- NOTE | 2021-05-26 10:05 | Discharge Inst-Simple/Standard ---
Discharge Inst-Standard Discharge Medications New, Converted or Re-Newed RX: Transmitted to Pharmacy Patient Instructions/Follow Up Plan of Care/Instructions/FU: 2-3 weeks Delmy Activity as Tolerated: No Discharge Diet: Regular Diet Other Inst to Patient Follow up Appt: Make appointment for 2 week. Instructions: No lifting greater than 10 pounds. No strenuous activity. May shower in 24 hours, no tub bath or soaking. Use incentive spirometer at home as directed. No Smoking Skin/Wound Care: You have special glue over your incision that will fall off on it's own. At umbilicus you have a bandage, remove it in 48 hours. Symptoms to Report: Appetite Changes, Extremity Discoloration, Numbness/Tingling, Swelling Increased, Bleeding Excessive, Eyesight Changes, Pain Increased, Urine Color Change, Constipation(Persistent), Fever over 101 degree F, Pain/Pressure in chest, Urinating Difficulty, Cough Up/Vomit Blood, Heart Beat Irreg/Pounding, Pain/Pressure in jaw, Vaginal Bleeding Increase, Cramps in feet or legs, Lightheadedness, Pain/Pressure in shoulder, Diarrhea(Persistent), Memory Changes Suddenly, Questions/Concerns, Weight gain consecutive days, Dizziness/Fainting, Nausea/Vomiting, Shortness of Breath, Weight gain over 2 pounds If questions or concerns contact your physician Or seek help at emergency department. DORIE HUSAIN DO May 26, 2021 10:05
--- NOTE | 2021-05-26 10:09 | Progress Note-Post Operative ---
Post-Operative Progess Note Surgeon (s)/Site Engineer (s) Surgeon DORIE HUSAIN DO Site Engineer: Dr. Mccallum to assist in retraction dissection and closure. Pre-Operative Diagnosis umbilical hernia Post-Operative Diagnosis incarcerated omentum, umbilical hernia Procedure & Operative Findings Date of Procedure 05/26/21 Procedure Performed/Findings PROCEDURE: Laparoscopic incarcerated umbilical hernia repair with mesh. COMPLICATIONS: None. INDICATIONS: The patient is a 55, male with an umbilical hernia, which has continued to increase in size and cause discomfort. The patient was explained the risk and benefits of the procedure and wished to proceed with the procedure. Consent was signed on the chart. DESCRIPTION OF PROCEDURE: The patient was taken into the operating suite, prepped and draped in sterile fashion. Surgical pause was performed. Local anesthetic was infiltrated in left upper quadrant. A 15 blade scalpel was used to make a small skin incision. Cautery was used to dissect down to the fascia, which was then scored and divided the muscle, went through the posterior sheath and a balloon trocar was inserted into the abdomen. The abdomen was then insufflated. Incarcerated omentum through the hernia defect. A 5 mm trocar was placed in the right lower quadrant and a 5 mm trocar was placed in left lower quadrant. Contents of hernia reduced. Fat pad and falciform taken down with cautery. Two defects present. Echo Ventralight mesh was then inserted in the abdomen grabbed through the stab incision. The balloon was inflated on the mesh. Circumferential tacks were placed with a SecureStrap Tacker. The balloon was then removed and inner crown was created as well. The mesh was tacked with pressure being decreased. The 12 mm fascial defect was then closed using 0 Vicryl. The abdomen was then desufflated,the trocars were removed. The skin was then closed using 4-0 Monocryl in a running subcuticular fashion. The abdomen was washed and dried and Skin Affix was placed over the incisions. The patient tolerated procedure well without any complications. She was taken to recovery room in stable condition. Anesthesia Type general Estimated Blood Loss Estimated blood loss (mL): minimal Specimens/Packing Specimens Removed DORIE Durham DO May 26, 2021 10:09
[2021-05-26] MEDS ORDERED: SUGAMMADEX 500 MG/5 ML VIAL (BRIDION) IV ONE (10:10)
[2021-05-26] MEDS ORDERED: MEPERIDINE (DEMEROL) INJ 50 MG/ML IVP ONE (10:30)
[2021-05-26] MEDS ORDERED: fentaNYL INJ 100 MCG/2 ML AMP IVP ONE (10:30)
[2021-05-26] MEDS ORDERED: morphine INJ 10 MG/ML 1ML (SYR OR VIAL) IVP ONE (10:30)
[2021-05-26] MEDS ORDERED: HYDROcodone/APAP 5 MG/325 MG (LORTAB) TAB ONE (11:13)
[2021-05-26] MEDS ORDERED: HYDROcodone/APAP 5 MG/325 MG (LORTAB) TAB PO ONE (11:15)
--- NOTE | 2021-05-26 16:10 | Anesthesia-General Post-Op ---
General Patient Condition Mental Status/LOC: Same as Preop Cardiovascular: Satisfactory Nausea/Vomiting: Absent Respiratory: Satisfactory Pain: Controlled Complications: Absent Post Op Complications Complications None Follow Up Care/Instructions Patient Instructions None needed. Anesthesia/Patient Condition Patient Condition Patient is doing well, no complaints, stable vital signs, no apparent adverse anesthesia problems. No complications reported per nursing. CARLO GERMAN CRNA May 26, 2021 16:10
== END 2021-05-26 12:50 | disposition home or self-care (01) ==
LOC: SDC 07:38
PROVIDERS: ATTEND Surgery
DX: K42.0 Umbilical hernia with obstruction, without gangrene (principal); I10 Essential (primary) hypertension; K21.9 Gastro-esophageal reflux disease without esophagitis; F32.9 Major depressive disorder, single episode, unspecified; F41.9 Anxiety disorder, unspecified; E07.9 Disorder of thyroid, unspecified; E66.01 Morbid (severe) obesity due to excess calories; Z79.890 Hormone replacement therapy; Z68.32 Body mass index [BMI] 32.0-32.9, adult; Z88.1 Allergy status to other antibiotic agents; Z79.899 Other long term (current) drug therapy
CPT/HCPCS: 87081; 94664